=== PATIENT | female | born 1945 | race Caucasian/White ===

== ENCOUNTER 2016-07-04 22:05 | Inpatient (IN) | payer MEDICARE, OTHER ==
[~2016-07-04] VITALS: Ht 154.9 cm; Wt 73.0 kg
[~2016-07-04 22:05] MED LIST: ACETAMINOPHEN325 M1 ORAL; AMBIEN5 MG ORAL; ASPIRIN EC81 MG ORAL; ASPIRIN81 MG ORAL; ATIVAN1 MG ORAL; ATORVASTATIN CA10 MG ORAL; ATORVASTATIN CA20 MG ORAL; ATROVENT HFA12.9 GM IH; BISACODYL5 MG ORAL; CARAFATE1 G1 ORAL; CARVEDILOL3.125 MG ORAL; CEPHALEXIN500 MG ORAL; COLACE100 MG ORAL; D5W 50ML50 M1 IV; DEXTROSE 50%-WA50 M1 IV; DIGOXIN0.125 MG/2 ORAL; DOCUSATE SODIU100 MG ORAL; FUROSEMIDE10 MG/1 M2 PO; FUROSEMIDE20 M1 ORAL; FUROSEMIDE40 MG ORAL; HEPARIN2000 UNIT/ SUBQ; ISOSORBIDE DINI30 MG ORAL; ISOSORBIDE DINIT5 MG ORAL; JANUVIA100 MG ORAL; LANTUS SOL100 UNIT/1 SUBQ; LASIX20 M1 ORAL; LEVEMIR FL100 UNIT/1 SUBQ; LISINOPRIL10 MG ORAL; LISINOPRIL20 MG ORAL; LISINOPRIL5 MG ORAL; LORATADINE10 M1 PO; LORATADINE5 MG/5 M4 PO; LYRICA50 MG ORAL; LYRICA75 M1 ORAL; MOM30 ML ORAL; NEURONTIN300 MG ORAL; NEXIUM40 MG ORAL; NORCO 5-325 TA1 EACH ORAL; NOVOLOG100 UNITS1 SUBQ; OMEPRAZOLE20 M2 ORAL; ONDANSETRON4 MG/2 M2 IVP; POLYETHYLENE GL17 GM ORAL; PROTONIX40 MG ORAL; RANITIDINE HCL150 MG ORAL; ROCEPHIN2 GM IVPB; SANTYL30 GM TP; VITAMIN D250000 UNI1 ORAL; ZOFRAN 4 MG4 MG/2 ML IVP; ZOFRAN4 M1 IVP
[2016-07-04 23:21] LABS: BASOPHILS % (AUTO) 1.5 % (0.0-2.0); EOSINOPHILS % (AUTO) 2.6 % (0.0-3.0); LYMPHOCYTES % (AUTO) 25.7 % (20.0-45.0); MEAN CORPUSCULAR HEMOGLOBIN 25.8 PG (27.0-31.0); MEAN CORPUSCULAR HGB CONC 30.7 G/DL (32.0-36.0); MEAN CORPUSCULAR VOLUME 84 FL (80-99); MONOCYTES % (AUTO) 9.5 % (1.0-10.0); NEUTROPHILS % (AUTO) 60.7 % (45.0-75.0); PLATELET COUNT 223 K/UL (150-450); RED BLOOD COUNT 4.68 M/UL (4.20-5.40); RED CELL DISTRIBUTION WIDTH 14.5 % (11.6-14.8)
[2016-07-04 23:32] LABS: INR 0.9 (0.9-1.1); PROTHROMBIN TIME 9.4 SEC (9.30-11.50)
[2016-07-04 23:37] LABS: TROPONIN I < 0.30 ng/mL (<=0.30)
[2016-07-04 23:40] LABS: ALANINE AMINOTRANSFERASE 9 U/L (3-33); ALBUMIN/GLOBULIN RATIO 0.9 (1.0-2.7); ANION GAP 16 (5-15); ASPARTATE AMINO TRANSFERASE 16 U/L (5-40); CALCIUM 9.3 mg/dL (8.6-10.2); CARBON DIOXIDE 17 mEQ/L (20-30); CHLORIDE 92 mEQ/L (98-107); CREATININE 2.3 mg/dL (0.5-0.9); HEMOLYSIS 25; SODIUM 125 mEQ/L (135-145); TOTAL PROTEIN 8.4 g/dL (6.6-8.7)
[2016-07-04 23:50] LABS: CKMB 2.3 ng/mL (< 3.8)
[2016-07-04] MEDS ORDERED: Tubing IV Cassette IV ONE (23:57)
[2016-07-05] VITALS (24 sets, daily range): BP systolic 89–131; BP diastolic 34–73
[2016-07-05] LABS: APPEARANCE,URINE CLEAR; KETONES,URINE NEGATIVE (NEGATIVE); LEUKOCYTE ESTERASE ,URINE 3+ (NEGATIVE); NITRITE,URINE NEGATIVE (NEGATIVE); PH,URINE 5 (4.5-8.0); PROTEIN,URINE NEGATIVE (NEGATIVE); UROBILINOGEN,URINE NORMAL MG/DL (0.0-1.0)
[2016-07-05] MEDS ORDERED: Calcium Gluconate 1gm/10ml vial IVP ONE
[2016-07-05] MEDS ORDERED: Albuterol ud Inhalation HHN ONE
[2016-07-05] MEDS ORDERED: Sodium Bicarbonate 8.4% 50ml Carp IV ONE
[2016-07-05 00:17] LABS: BACTERIA,URINE MANY /HPF; SQUAMOUS EPITHELIAL CELL,UR FEW /LPF (NONE/OCC); WBC,URINE 60-80 /HPF (0 - 2)
[2016-07-05] MEDS ORDERED: Morphine Sulfate 2mg/ml Inj IVP PRN (00:30)
[2016-07-05] MEDS ORDERED: Sodium Polystyrene Sulfonate 15gm Powder ORAL ONE ×3 (00:30→08:30)
[2016-07-05] MEDS ORDERED: Zolpidem 5mg tab ORAL PRN (00:30)
[2016-07-05] MEDS ORDERED: DuoNeb 0.5-3(2.5)mg/3ml neb HHN PRN (00:30)
[2016-07-05] MEDS ORDERED: Miralax 17gm pkt ORAL PRN (00:30)
[2016-07-05] MEDS ORDERED: Mylanta II UD 30ml ORAL PRN (00:30)
[2016-07-05] MEDS ORDERED: cefTRIAXone 1 GM in NS 55 ML IVPB ONE (00:45)
--- NOTE | 2016-07-05 01:03 | Emergency Room Report ---
History of Present Illness General Chief Complaint: Generalized Weakness Source: Patient, Medical Record Present Illness HPI This is a 71-year-old female with a history of CAD. She had a pacemaker. She presents with chief complaint of weakness. She said she has nausea and vomiting and diarrhea for last 3 days. No fever or chills. No chest pain. Nothing made it better. Exertion made it worse. No other complaint. Allergies: Coded Allergies: No Known Allergies (Unverified , 03/12/15) Patient History Past Medical History: old chart reviewed, unable to obtain Past Surgical History: pacemaker Pertinent Family History: none Social History: Denies: smoking Now: No Immunizations: other Reviewed Nursing Documentation: PMH: Agreed, PSxH: Agreed Nursing Documentation-PMH Hx Cardiac Problems: Yes - Hyperlipidemia Hx Hypertension: Yes Hx Pacemaker: Yes - s/p Biotronik biventricular defibrillator Hx COPD: Yes Hx Diabetes: Yes Hx Cancer: No Hx Gastrointestinal Problems: Yes - epigastric pain, hypoalbuminemia Hx Neurological Problems: Yes Hx Cerebrovascular Accident: Yes - right hemiplegia Hx Dementia: No Hx Alzheimer's Disease: No Hx Parkinson's Disease: No Hx Meningitis: No Hx Epilepsy: No Hx Multiple Sclerosis: No Hx Cerebral Palsy: No Hx Amyotrophic Lat Sclerosis: No Hx Guillian-L[place] Syndrome: No Hx Peripheral Neuropathy: No Hx Spinal Cord Injury: No Hx Head Trauma: No Hx Traumatic Brain Injury: No Hx Memory Loss: No Hx Concentration Difficulty: No Hx Speech Problem: No Hx Tremors: Yes Hx Vertigo: No Hx Dizziness: Yes Hx Syncope: No Hx Headaches: No Hx Aphasia: No Hx Dysphasia: No Hx Numbness: No Hx Fatigue: No Hx Neurologic Surgery: No Hx Brain Shunt: No Review of Systems Constitutional: Reports: weakness Eye: Denies: blurred vision, eye pain ENT: Denies: ear pain, nose congestion, throat swelling Respiratory: Denies: cough, shortness of breath Cardiovascular: Denies: chest pain, palpitations Gastrointestinal: Reports: diarrhea, nausea, vomiting, Denies: abdominal pain Musculoskeletal: Denies: back pain, joint pain Skin: Denies: rash Neurological: Denies: headache, numbness Endocrine: Denies: increased thirst, increased urine Hematologic/Lymphatic: Denies: easy bruising All Other Systems: negative except mentioned in HPI Physical Exam Vital Signs Date Time Temp Pulse Resp B/P Pulse Ox O2 Delivery O2 Flow Rate FiO2 07/04/16 22:18 97.5 76 20 128/76 95 Room Air vitals unremarkable Sp02 EP Interpretation: reviewed, normal General Appearance: well appearing, no apparent distress, alert Head: normocephalic, atraumatic Eyes: bilateral eye EOMI, bilateral eye PERRL ENT: hearing 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, normal pharynx Neck: full range of motion, supple, no meningismus Respiratory: chest non-tender, lungs clear, normal breath sounds Cardiovascular #1: regular rate, rhythm, no murmur Gastrointestinal: normal bowel sounds, non tender, no mass, no organomegaly, no bruit, non-distended Musculoskeletal: back normal, gait/station normal, normal range of motion Psychiatric: mood/affect normal Skin: warm/dry Procedures Critical Care Time Critical Care Time Critical care is mandated in this patient who presented with hyperkalemia. Patient require my urgent intervention to attenuate the risks of metabolic collapse which may lead to cardiovascular collapse and . Critical care time is 35 minutes excluding any reportable procedure. Critical care time included evaluation, multiple reevaluation, looking at old charts, interpreting laboratory and diagnostic data, discussing case with patient and family and consultants, and charting. Medical Decision Making Diagnostic Impression: Primary Impression: Hyperkalemia Additional Impressions: Acute renal failure (ARF) Qualified Codes: N17.9 - Acute kidney failure, unspecified Episode of generalized weakness Cardiomyopathy Qualified Codes: I42.9 - Cardiomyopathy, unspecified Hyponatremia Hyperglycemia UTI (urinary tract infection) Qualified Codes: N30.00 - Acute cystitis without hematuria ER Course Patient presents with weakness and has hyperkalemia. Patient treated with medication. Loculated, she has a pacemaker. This will decrease her chances from going to arrhythmia. Echocardiogram on December 2015 showed ejection fraction of 20-25%. Luckily, she still making urine. We'll hydrate gently. She's not making urine, he will be emergent dialysis. I discussed the case with Dr. Nolen who is covering for Dr. Wright. Lab Results Impression Labs with hyperkalemia EKG Diagnostic Results Rate: normal Rhythm: NSR, other - paced ST Segments: no acute changes Rhythm Strip Diag. Results EP Interpretation: yes Rate: 70 Rhythm: NSR, no PVC's, no ectopy Chest X-Ray Diagnostic Results EP Interpretation: Yes Findings: no consolidation, no effusion, no pneumothorax, no acute cardiopulmonary disease Number of Views: 1 Last Vital Signs Date Time Temp Pulse Resp B/P Pulse Ox O2 Delivery O2 Flow Rate FiO2 07/05/16 00:20 96.9 86 18 99/73 100 Room Air Status: improved Disposition: ADMITTED INPATIENT Condition: Critical Referrals: NON PHYSICIAN (PCP) SISI HOLLIDAY M.D. Jul 05, 2016 01:03
[2016-07-05 01:44] LABS: CALCIUM 9.1 mg/dL (8.6-10.2); GLOMERULAR FILTRATION RATE 24.7 mL/min (>60)
[2016-07-05 01:47] LABS: POTASSIUM 6.9 mEQ/L (3.4-4.9)
[2016-07-05 07:20] LABS: CALCIUM 8.8 mg/dL (8.6-10.2); CREATININE 1.7 mg/dL (0.5-0.9); GLOMERULAR FILTRATION RATE 29.8 mL/min (>60)
[2016-07-05 07:36] LABS: POTASSIUM 6.6 mEQ/L (3.4-4.9)
[2016-07-05] MEDS: Heparin 5000 units/ml inj SUBQ SCH ×2 (10:27→21:16)
--- NOTE | 2016-07-05 10:52 | Consultation ---
Consult Note Consult Note asked to eval for renal failure and hyper kalemia Chief Complaint: Generalized Weakness HPI This is a 71-year-old female with a history of CAD. She had a pacemaker. She presents with chief complaint of weakness. She said she has nausea and vomiting and diarrhea for last 3 days. No fever or chills. No chest pain. Nothing made it better. Exertion made it worse. No other complaint. Past Surgical History: pacemaker Hx Cardiac Problems: Yes - Hyperlipidemia Hx Hypertension: Yes Hx Pacemaker: Yes - s/p Biotronik biventricular defibrillator Hx COPD: Yes Hx Cancer: No Hx Gastrointestinal Problems: Yes - epigastric pain, hypoalbuminemia Hx Neurological Problems: Yes Hx Cerebrovascular Accident: Yes - right hemiplegia Hx Tremors: Yes Hx Dizziness: Yes Patient in ICU Examined , data reviewed , discussed with RN . Assessment/Plan Status: 1- Acute Renal Failure and HyperKalemia likely due to: - Hypotension and Shock- - Julio Inhibitors and excess diuretics 2- h/o Pacer and Cardiomyopathy- Plan: Slow Hydrate- Kayexelate- Monitor renal parameters- and serum K Avoid Nephrotoxics- Watch for CHF Sxs per orders VALERIO SOTO Jul 05, 2016 10:52
[2016-07-05] MEDS: Sucralfate 1gm tab ORAL SCH ×3 (11:37→21:15)
[2016-07-05] MEDS: Pantoprazole Inj IVP SCH (11:38)
--- NOTE | 2016-07-05 13:37 | Pulmonolgy Critical Care Note ---
Critical Care - Asmt/Plan Problems: (1) Acute renal failure (ARF) (2) Hyperkalemia (3) ATN (acute tubular necrosis) (4) Acute encephalopathy (5) Diabetes mellitus (6) CAD (coronary artery disease) (7) Iron deficiency anemia (8) HTN (hypertension) (9) Cerebral vascular disease Respiratory: monitor respiratory rate, adjust FIO2 Cardiac: continue to monitor HR/BP Renal: F/U I&O, keep IV fluid Infectious Disease: check cultures Gastrointestinal: continue feedings/current rate Endocrine: monitor blood sugar Affect: PRN ativan Disposition: keep in ICU Notes Reviewed: renal Discussed with: nurses, consultants, case technicianconcession manager - Objective Last 24 Hour Vital Signs Date Time Temp Pulse Resp B/P Pulse Ox O2 Delivery O2 Flow Rate FiO2 07/05/16 13:00 70 12 99/40 100 Room Air 07/05/16 12:00 97.8 70 15 97/46 98 Room Air 07/05/16 12:00 75 07/05/16 11:00 75 16 113/48 100 Room Air 07/05/16 10:00 80 15 104/38 98 Room Air 07/05/16 09:00 76 15 99/35 98 Room Air 07/05/16 08:00 97.5 75 16 92/34 100 Room Air 07/05/16 08:00 79 07/05/16 07:00 78 15 105/42 98 Room Air 07/05/16 06:05 80 17 89/37 98 Room Air 07/05/16 05:02 80 16 90/37 100 Room Air 07/05/16 04:29 83 07/05/16 04:00 83 16 97/44 100 Room Air 07/05/16 03:29 85 07/05/16 03:15 97.6 85 18 109/66 100 Room Air 07/05/16 03:09 96.9 81 14 105/48 100 Room Air 07/05/16 02:35 81 14 105/48 100 Room Air 07/05/16 01:40 79 17 95/39 98 Room Air 07/05/16 00:20 96.9 86 18 99/73 100 Room Air 07/05/16 00:08 69 19 100 Room Air 07/05/16 00:07 114 20 100 Room Air 07/05/16 00:03 70 23 Room Air 07/04/16 22:18 97.5 76 20 128/76 95 Room Air Status: awake Condition: critical HEENT: atraumatic Lungs: clear Heart: HR/BP stable Abdomen: non-tender Extremities: no C/C/E, edema Accucheck: 301 Critical Care - Subjective ROS Limited/Unobtainable: No ICU Day: 1 Interval Events: 71-year-old female with a history of CAD, pacemaker presented to ER of [place] with chief complaint of weakness. She said she has nausea and vomiting and diarrhea for last 3 days. \ She was diagnosed to have acute renal failure with hyperkalemia, She recieved the intital treatment including NS, D50 , Kayecalate in ER. She had a good urine output and her repeat K was lower. she was transferred to ICU for further evaluation. She was somnolent earlier on but became more alert as she was receiving her treatment. Condition: critical EKG Rhythm: Sinus Rhythm Fluids: NS bolus I&O: Intake and Output 07/04/16 07/05/16 19:00 07:00 Intake Total 1550 ml Output Total 1440 ml Balance 110 ml Intake Oral 0 ml IV Total 1550 ml Output Urine Total 1440 ml CXR: pace maker in place Labs: Laboratory Tests Test 07/04/16 23:10 07/04/16 23:25 07/05/16 01:10 07/05/16 06:50 White Blood Count 11.0 K/UL (4.8-10.8) H Red Blood Count 4.68 M/UL (4.20-5.40) Hemoglobin 12.1 G/DL (12.0-16.0) Hematocrit 39.3 % (37.0-47.0) Mean Corpuscular Volume 84 FL (80-99) Mean Corpuscular Hemoglobin 25.8 PG (27.0-31.0) L Mean Corpuscular Hemoglobin Concent 30.7 G/DL (32.0-36.0) L Red Cell Distribution Width 14.5 % (11.6-14.8) Platelet Count 223 K/UL (150-450) Mean Platelet Volume 9.0 FL (6.5-10.1) Neutrophils (%) (Auto) 60.7 % (45.0-75.0) Lymphocytes (%) (Auto) 25.7 % (20.0-45.0) Monocytes (%) (Auto) 9.5 % (1.0-10.0) Eosinophils (%) (Auto) 2.6 % (0.0-3.0) Basophils (%) (Auto) 1.5 % (0.0-2.0) Prothrombin Time 9.4 SEC (9.30-11.50) Prothromb Time International Ratio 0.9 (0.9-1.1) Activated Partial Thromboplast Time 22 SEC (23-33) L Sodium Level 125 mEQ/L (135-145) L 131 mEQ/L (135-145) L 133 mEQ/L (135-145) L Potassium Level 8.0 mEQ/L (3.4-4.9) *H 6.9 mEQ/L (3.4-4.9) *H 6.6 mEQ/L (3.4-4.9) *H Chloride Level 92 mEQ/L (98-107) L 97 mEQ/L (98-107) L 104 mEQ/L (98-107) Carbon Dioxide Level 17 mEQ/L (20-30) L 19 mEQ/L (20-30) L 17 mEQ/L (20-30) L Anion Gap 16 (5-15) H 15 (5-15) 12 (5-15) Blood Urea Nitrogen 91 mg/dL (7-23) H 90 mg/dL (7-23) H 79 mg/dL (7-23) H Creatinine 2.3 mg/dL (0.5-0.9) H 2.0 mg/dL (0.5-0.9) H 1.7 mg/dL (0.5-0.9) H Estimat Glomerular Filtration Rate 21.0 mL/min (>60) 24.7 mL/min (>60) 29.8 mL/min (>60) Glucose Level 213 mg/dL (74-106) H 197 mg/dL (74-106) H 170 mg/dL (74-106) H Calcium Level 9.3 mg/dL (8.6-10.2) 9.1 mg/dL (8.6-10.2) 8.8 mg/dL (8.6-10.2) Total Bilirubin < 0.2 mg/dL (0.0-1.2) Aspartate Amino Transf (AST/SGOT) 16 U/L (5-40) Alanine Aminotransferase (ALT/SGPT) 9 U/L (3-33) Alkaline Phosphatase 154 U/L (35-104) H Total Creatine Kinase 82 U/L (26-140) Creatine Kinase MB 2.3 ng/mL (< 3.8) Creatine Kinase MB Relative Index 2.8 Troponin I < 0.30 ng/mL (<=0.30) Pro-B-Type Natriuretic Peptide 1841 pg/mL (0-125) H Total Protein 8.4 g/dL (6.6-8.7) Albumin 4.1 g/dL (3.5-5.2) Globulin 4.3 g/dL Albumin/Globulin Ratio 0.9 (1.0-2.7) L Urine Color Pale yellow Urine Appearance Clear Urine pH 5 (4.5-8.0) Urine Specific [place] 1.005 (1.005-1.035) Urine Protein Negative (NEGATIVE) Urine Glucose (UA) Negative (NEGATIVE) Urine Ketones Negative (NEGATIVE) Urine Occult Blood 2+ (NEGATIVE) H Urine Nitrite Negative (NEGATIVE) Urine Bilirubin Negative (NEGATIVE) Urine Urobilinogen Normal MG/DL (0.0-1.0) Urine Leukocyte Esterase 3+ (NEGATIVE) H Urine RBC 5-10 /HPF (0 - 2) H Urine WBC 60-80 /HPF (0 - 2) H Urine Squamous Epithelial Cells Few /LPF (NONE/OCC) Urine Bacteria Many /HPF (NONE) H Digoxin Level < 0.3 ng/mL (0.5-2.0) ERVIN ARCEO Jul 05, 2016 13:37
--- NOTE | 2016-07-05 14:01 | Diagnostic Imaging Report ---
Indication: SOB Technique: One view of the chest Comparison: 02/29/2016 Findings: There is a left chest biventricular pacemaker again demonstrated. Lungs and pleural spaces are clear. Heart size is borderline enlarged. Findings are unchanged Impression: No acute process. Findings as noted
[2016-07-05 14:15] LABS: HEMOGLOBIN A1C 9.7 % (< 6.0)
[2016-07-05 14:16] LABS: CALCIUM 8.4 mg/dL (8.6-10.2); CREATININE 1.5 mg/dL (0.5-0.9); GLOMERULAR FILTRATION RATE 34.4 mL/min (>60)
[2016-07-05 14:17] LABS: PHOSPHORUS 3.8 mg/dL (2.5-4.8); URIC ACID 6.9 mg/dL (3.0-7.5)
--- NOTE | 2016-07-05 16:00 | History & Physical ---
History and Physical History & Physicial Dictated for Int Med-Dr Wright no. [id number]. JOVANA AGUILAR Jul 05, 2016 16:00
--- NOTE | 2016-07-05 22:18 | History and Physical Report ---
DATE OF ADMISSION: 07/04/[address] Wright. CHIEF COMPLAINT: The patient is a 71-year-old female, presents with complaint of generalized weakness. HISTORY OF PRESENT ILLNESS: The patient was admitted to [facility] in March 2016. Please see history and physical and discharge summary dictated at that time. The patient presented to [place] emergency room. She states she had a three day history of nausea, vomiting, and diarrhea. She has become increasingly weak. The patient was found to have a potassium of 6.9. The patient was admitted for acute renal failure and hyperkalemia. PAST MEDICAL HISTORY: Significant for, 1. Chronic obstructive pulmonary disease. 2. Congestive heart failure. 3. Cardiomyopathy. 4. Diabetes type 2. 5. Hypertension. 6. History of cerebrovascular accident. 7. Right hemiparesis. 8. Cervical cancer, status post total abdominal hysterectomy. 9. Iron deficiency anemia. 10. Complete left bundle-branch block, status post AICD placement. PAST SURGICAL HISTORY: Significant for, 1. Total abdominal hysterectomy. 2. Appendectomy. 3. AICD placement in November [address] Zhao Acosta. MEDICATIONS: 1. Aspirin 81 mg one tablet p.o. daily. 2. Lipitor 10 mg one tablet p.o. at nightly. 3. Carvedilol 3.125 mg one tablet p.o. twice daily. 4. Nexium 40 mg one tablet p.o. daily. 5. Lasix 20 mg one tablet p.o. daily. 6. NovoLog sliding scale. 7. Lantus insulin at nightly. 8. Isordil 30 mg one tablet p.o. daily. 9. Lisinopril 10 mg one tablet p.o. daily. 10. Claritin 10 mg one tablet p.o. daily. 11. Protonix 40 mg one tablet p.o. daily. 12. Lyrica 50 mg one tablet p.o. twice daily. 13. Carafate 1 g p.o. at nightly. 14. Ambien 10 mg one tablet p.o. at nightly. ALLERGIES: No known drug allergies. SOCIAL HISTORY: The patient is single and lives with her adult son. The patient denies tobacco or alcohol use. REVIEW OF SYSTEMS: Constitutional: The patient denies weight loss or weight gain. The patient denies fevers or chills. HEENT: The patient denies ear or throat pain. Cardiovascular: The patient denies palpitations or chest pain. Chest: The patient denies wheezes or shortness of breath. Abdomen: The patient complains of nausea, vomiting, and diarrhea. The patient denies constipation. Genitourinary: The patient denies dysuria or increased frequency of urination. Neuromuscular: The patient complains of generalized weakness as above. The patient denies seizures. PHYSICAL EXAMINATION: VITAL SIGNS: Temperature 97.8 degrees, respirations 15 to 16, pulse 70 to 80, and blood pressure 97-113/40 to 46. GENERAL: The patient well-nourished, well-developed, somnolent, female, in no apparent distress. HEENT: Eyes, pupils are equal and responsive to light and accommodation. Extraocular movements are intact. NECK: Supple without lymphadenopathy. CHEST: Lungs are clear to auscultation bilaterally without wheezes or rales. CARDIOVASCULAR: Regular rhythm and rate. S1, S2 normal without murmurs, rubs, or gallops. ABDOMEN: Soft, nontender, and nondistended. Positive bowel sounds. No evidence of hepatosplenomegaly. Currently, no rebound or guarding noted. EXTREMITIES: Negative for clubbing, cyanosis, or edema. RECTAL: Refused. GENITAL: Refused. NEUROLOGIC: The patient does have a right hemiparesis. Otherwise, cranial nerves II through XII grossly intact without focal deficits. Motor strength is 5/5 bilaterally. Deep tendon reflexes are 2+ plantar. LABORATORY STUDIES: WBC 11.0, hemoglobin 12.1, hematocrit 39.3, and platelets 223,000. Sodium 131, potassium 6.9, chloride 97, CO2 19, BUN 90, creatinine 2.0, and glucose 197. Urinalysis showed 2+ occult blood, 3+ leukocyte esterase, and 60 to 80 WBC. ASSESSMENT: This is a 71-year-old female, 1. Acute renal failure. 2. Hyperkalemia. 3. Hypotension. 4. Shock. 5. Chronic obstructive pulmonary disease. 6. Cardiomyopathy. 7. Diabetes type 2. 8. Hypertension. 9. History of cerebrovascular disease. 10. Right hemiparesis. 11. History of cervical cancer. 12. Iron deficiency anemia. 13. Complete left bundle-branch block. TREATMENT: 1. Acute renal failure/hyperkalemia. A Nephrology consultation with Dr. Mcdonald. The patient will receive Kayexalate. The patient is currently receiving intravenous fluids. We will follow recommendation of Dr. Mcdonald. 2. Hypotension/shock. The patient is currently admitted to the intensive care unit. 3. Chronic obstructive pulmonary disease. 4. Cardiomyopathy. 5. Diabetes type 2. Continue Lantus and NovoLog sliding scale as above. 6. Hypertension. The patient is currently hypotensive. We will hold antihypertensive medication. 7. History of cerebrovascular accident. 8. Right hemiparesis. 9. History of cervical cancer, status post total hysterectomy. 10. Iron deficiency anemia, stable. 11. Complete left bundle-branch block status post automatic implanted cardioverter defibrillator. Ash Li M.D. DR: Binta JOB#: [id number] CC:
[2016-07-06] VITALS (16 sets, daily range): BP systolic 102–127; BP diastolic 38–80
[2016-07-06] MEDS: Sucralfate 1gm tab ORAL SCH ×4 (05:39→20:55)
[2016-07-06 06:32] LABS: BASOPHILS % (AUTO) 1.1 % (0.0-2.0); LYMPHOCYTES % (AUTO) 26.6 % (20.0-45.0); MEAN CORPUSCULAR HEMOGLOBIN 25.3 PG (27.0-31.0); MEAN CORPUSCULAR HGB CONC 30.1 G/DL (32.0-36.0); MEAN CORPUSCULAR VOLUME 84 FL (80-99); MEAN PLATELET VOLUME 7.9 FL (6.5-10.1); MONOCYTES % (AUTO) 8.3 % (1.0-10.0); PLATELET COUNT 198 K/UL (150-450); RED CELL DISTRIBUTION WIDTH 14.8 % (11.6-14.8); WHITE BLOOD COUNT 9.8 K/UL (4.8-10.8)
[2016-07-06 06:49] LABS: CRP QUANT < 0.3 mg/dL (< 0.5); URIC ACID 6.2 mg/dL (3.0-7.5)
[2016-07-06 06:50] LABS: ALANINE AMINOTRANSFERASE 7 U/L (3-33); ALBUMIN/GLOBULIN RATIO 0.8 (1.0-2.7); ANION GAP 14 (5-15); ASPARTATE AMINO TRANSFERASE 14 U/L (5-40); CALCIUM 8.7 mg/dL (8.6-10.2); CARBON DIOXIDE 19 mEQ/L (20-30); CHLORIDE 108 mEQ/L (98-107); CHOLESTEROL 116 mg/dL (< 200); CHOLESTEROL/HDL RATIO 3.4 (3.3-4.4); CREATININE 1.2 mg/dL (0.5-0.9); GLOMERULAR FILTRATION RATE 44.5 mL/min (>60); HEMOLYSIS 2; LDL CHOLESTEROL (CALC.) 54 mg/dL (60-99); POTASSIUM 5.4 mEQ/L (3.4-4.9); SODIUM 141 mEQ/L (135-145); TOTAL PROTEIN 6.6 g/dL (6.6-8.7)
[2016-07-06 07:27] LABS: MAGNESIUM 1.8 mg/dL (1.7-2.5); PHOSPHORUS 3.2 mg/dL (2.5-4.8)
[2016-07-06 08:07] LABS: HEMOGLOBIN A1C 10.6 % (< 6.0)
[2016-07-06] MEDS: Pantoprazole Inj IVP SCH (08:36)
[2016-07-06] MEDS: Heparin 5000 units/ml inj SUBQ SCH ×2 (08:37→20:57)
[2016-07-06] MEDS ORDERED: Aspirin EC 81mg tab ORAL SCH (09:00)
--- NOTE | 2016-07-06 10:40 | Pulmonolgy Critical Care Note ---
Critical Care - Asmt/Plan Problems: (1) Acute renal failure (ARF) (2) Hyperkalemia (3) ATN (acute tubular necrosis) (4) Acute encephalopathy (5) Diabetes mellitus (6) CAD (coronary artery disease) (7) Iron deficiency anemia (8) HTN (hypertension) (9) Cerebral vascular disease Respiratory: monitor respiratory rate Cardiac: continue to monitor HR/BP Renal: F/U I&O, decrease IV fluid, other - electrolytes better Gastrointestinal: continue feedings/current rate Endocrine: monitor blood sugar, continue sliding scale insulin Hematologic: transfuse if hgb<8.5 Neurologic: PRN Morphine, keep patient comfortable Affect: PRN ativan Prophylaxis: Protonix, Heparin Notes Reviewed: tow truck driver, cardio, renal Discussed with: nurses, consultants, rn case manager hospiceglobal regulatory affairs manager - Objective Last 24 Hour Vital Signs Date Time Temp Pulse Resp B/P Pulse Ox O2 Delivery O2 Flow Rate FiO2 07/06/16 09:00 79 16 112/38 98 Room Air 07/06/16 08:00 97.6 83 15 115/46 100 Room Air 07/06/16 07:43 74 18 Room Air 07/06/16 06:53 77 19 120/45 97 Room Air 07/06/16 06:00 76 19 120/45 97 Room Air 07/06/16 05:00 60 19 114/80 97 Room Air 07/06/16 04:00 97.5 77 19 118/44 97 Room Air 07/06/16 04:00 77 07/06/16 03:00 82 19 113/44 97 Room Air 07/06/16 02:00 79 19 112/45 97 Room Air 07/06/16 00:59 90 19 123/46 97 Room Air 07/06/16 00:00 93 07/06/16 00:00 97.7 93 19 125/53 97 Room Air 07/05/16 23:00 78 19 131/53 97 Room Air 07/05/16 22:00 87 20 127/53 98 Room Air 07/05/16 21:00 69 20 114/49 98 Room Air 07/05/16 20:00 99.1 73 16 109/50 100 Room Air 07/05/16 20:00 61 07/05/16 19:00 81 18 110/50 95 Room Air 07/05/16 18:00 69 18 92/51 100 Room Air 07/05/16 17:00 71 18 105/49 100 Room Air 07/05/16 16:16 73 07/05/16 16:00 97.7 73 16 95/68 100 Room Air 07/05/16 15:00 71 19 101/45 100 Room Air 07/05/16 14:00 72 13 103/45 100 Room Air 07/05/16 13:00 70 12 99/40 100 Room Air 07/05/16 12:00 97.8 70 15 97/46 98 Room Air 07/05/16 12:00 75 07/05/16 11:00 75 16 113/48 100 Room Air Status: awake Condition: critical HEENT: atraumatic, normocephalic Lungs: clear Heart: HR/BP stable, regular Abdomen: soft, feeding tube Extremities: no C/C/E, edema Micro: Microbiology Date/Time Source Procedure Growth Status 07/04/16 23:25 Urine,Clean Catch Urine Culture - Preliminary Gram Negative Bacillus 1 Resulted Accucheck: 90 Critical Care - Subjective ROS Limited/Unobtainable: No - feeling better Condition: critical EKG Rhythm: Sinus Rhythm Fluids: 1/2 NS 100 cc.hour I&O: Intake and Output 07/05/16 07/06/16 19:00 07:00 Intake Total 2360 ml 1150 ml Output Total 1845 ml 2180 ml Balance 515 ml -1030 ml Intake Oral 840 ml 50 ml IV Total 1500 ml 1100 ml Other 20 ml Output Urine Total 1845 ml 2180 ml CXR: no change Labs: Laboratory Tests Test 07/05/16 13:15 07/06/16 05:10 Sodium Level 136 mEQ/L (135-145) 141 mEQ/L (135-145) Potassium Level 6.0 mEQ/L (3.4-4.9) *H 5.4 mEQ/L (3.4-4.9) H Chloride Level 105 mEQ/L (98-107) 108 mEQ/L (98-107) H Carbon Dioxide Level 20 mEQ/L (20-30) 19 mEQ/L (20-30) L Anion Gap 11 (5-15) 14 (5-15) Blood Urea Nitrogen 70 mg/dL (7-23) H 46 mg/dL (7-23) H Creatinine 1.5 mg/dL (0.5-0.9) H 1.2 mg/dL (0.5-0.9) H Estimat Glomerular Filtration Rate 34.4 mL/min (>60) 44.5 mL/min (>60) Glucose Level 189 mg/dL (74-106) H 93 mg/dL (74-106) Calcium Level 8.4 mg/dL (8.6-10.2) L 8.7 mg/dL (8.6-10.2) White Blood Count 9.8 K/UL (4.8-10.8) Red Blood Count 4.10 M/UL (4.20-5.40) L Hemoglobin 10.4 G/DL (12.0-16.0) L Hematocrit 34.4 % (37.0-47.0) L Mean Corpuscular Volume 84 FL (80-99) Mean Corpuscular Hemoglobin 25.3 PG (27.0-31.0) L Mean Corpuscular Hemoglobin Concent 30.1 G/DL (32.0-36.0) L Red Cell Distribution Width 14.8 % (11.6-14.8) Platelet Count 198 K/UL (150-450) Mean Platelet Volume 7.9 FL (6.5-10.1) Neutrophils (%) (Auto) 59.0 % (45.0-75.0) Lymphocytes (%) (Auto) 26.6 % (20.0-45.0) Monocytes (%) (Auto) 8.3 % (1.0-10.0) Eosinophils (%) (Auto) 5.0 % (0.0-3.0) H Basophils (%) (Auto) 1.1 % (0.0-2.0) Hemoglobin A1c 10.6 % (< 6.0) H Uric Acid 6.2 mg/dL (3.0-7.5) Phosphorus Level 3.2 mg/dL (2.5-4.8) Magnesium Level 1.8 mg/dL (1.7-2.5) Total Bilirubin < 0.2 mg/dL (0.0-1.2) Gamma Glutamyl Transpeptidase 17 U/L (5-36) Aspartate Amino Transf (AST/SGOT) 14 U/L (5-40) Alanine Aminotransferase (ALT/SGPT) 7 U/L (3-33) Alkaline Phosphatase 83 U/L (35-104) Total Creatine Kinase 140 U/L (26-140) C-Reactive Protein, Quantitative < 0.3 mg/dL (< 0.5) Pro-B-Type Natriuretic Peptide 823 pg/mL (0-125) H Total Protein 6.6 g/dL (6.6-8.7) Albumin 3.1 g/dL (3.5-5.2) L Globulin 3.5 g/dL Albumin/Globulin Ratio 0.8 (1.0-2.7) L Triglycerides Level 138 mg/dL (< 150) Cholesterol Level 116 mg/dL (< 200) LDL Cholesterol 54 mg/dL (60-99) L HDL Cholesterol 34 mg/dL (> 60) Cholesterol/HDL Ratio 3.4 (3.3-4.4) Thyroid Stimulating Hormone (TSH) 1.200 uIU/mL (0.300-4.500) ERVIN COHN Jul 06, 2016 10:40
--- NOTE | 2016-07-06 11:08 | Diagnostic Imaging Report ---
Indication: DYSPNEA Technique: One view of the chest Comparison: 07/04/2016 Findings: Lungs and pleural spaces are clear. The heart size is upper limits normal. There is a left chest biventricular pacemaker. No significant interim change Impression: No acute process. Findings as noted
--- NOTE | 2016-07-06 12:03 | General Progress Note ---
Assessment/Plan Status: stable - from renal stand point Status Narrative Cr 1.2 ............... K 5.4 Assessment/Plan status; 1- Acute Renal Failure and HyperKalemia likely due to: - Hypotension and Shock- - Julio Inhibitors and excess diuretics 2- h/o Pacer and Cardiomyopathy- Plan: Slow Hydrate- Kayexelate- Monitor renal parameters- and serum K Avoid Nephrotoxics- Watch for CHF Sxs per orders Subjective ROS Limited/Unobtainable: No Constitutional: Reports: malaise, weakness Allergies: Coded Allergies: No Known Allergies (Unverified , 03/12/15) Objective Last 24 Hour Vital Signs Date Time Temp Pulse Resp B/P Pulse Ox O2 Delivery O2 Flow Rate FiO2 07/06/16 11:00 79 16 111/45 100 Room Air 07/06/16 10:00 77 16 114/43 100 Room Air 07/06/16 09:00 79 16 112/38 98 Room Air 07/06/16 08:00 75 07/06/16 08:00 97.6 83 15 115/46 100 Room Air 07/06/16 07:43 74 18 Room Air 07/06/16 06:53 77 19 120/45 97 Room Air 07/06/16 06:00 76 19 120/45 97 Room Air 07/06/16 05:00 60 19 114/80 97 Room Air 07/06/16 04:00 97.5 77 19 118/44 97 Room Air 07/06/16 04:00 77 07/06/16 03:00 82 19 113/44 97 Room Air 07/06/16 02:00 79 19 112/45 97 Room Air 07/06/16 00:59 90 19 123/46 97 Room Air 07/06/16 00:00 93 07/06/16 00:00 97.7 93 19 125/53 97 Room Air 07/05/16 23:00 78 19 131/53 97 Room Air 07/05/16 22:00 87 20 127/53 98 Room Air 07/05/16 21:00 69 20 114/49 98 Room Air 07/05/16 20:00 99.1 73 16 109/50 100 Room Air 07/05/16 20:00 61 07/05/16 19:00 81 18 110/50 95 Room Air 07/05/16 18:00 69 18 92/51 100 Room Air 07/05/16 17:00 71 18 105/49 100 Room Air 07/05/16 16:16 73 07/05/16 16:00 97.7 73 16 95/68 100 Room Air 07/05/16 15:00 71 19 101/45 100 Room Air 07/05/16 14:00 72 13 103/45 100 Room Air 07/05/16 13:00 70 12 99/40 100 Room Air Intake and Output 07/05/16 07/06/16 19:00 07:00 Intake Total 2360 ml 1150 ml Output Total 1845 ml 2180 ml Balance 515 ml -1030 ml Intake Oral 840 ml 50 ml IV Total 1500 ml 1100 ml Other 20 ml Output Urine Total 1845 ml 2180 ml Laboratory Tests 07/05/16 13:15: Sodium Level 136, Potassium Level 6.0*H, Chloride Level 105, Carbon Dioxide Level 20, Anion Gap 11, Blood Urea Nitrogen 70H, Creatinine 1.5H, Estimat Glomerular Filtration Rate 34.4, Glucose Level 189H, Calcium Level 8.4L 07/06/16 05:10: Sodium Level 141, Potassium Level 5.4H, Chloride Level 108H, Carbon Dioxide Level 19L, Anion Gap 14, Blood Urea Nitrogen 46H, Creatinine 1.2H, Estimat Glomerular Filtration Rate 44.5, Glucose Level 93, Calcium Level 8.7, White Blood Count 9.8, Red Blood Count 4.10L, Hemoglobin 10.4L, Hematocrit 34.4L, Mean Corpuscular Volume 84, Mean Corpuscular Hemoglobin 25.3L, Mean Corpuscular Hemoglobin Concent 30.1L, Red Cell Distribution Width 14.8, Platelet Count 198, Mean Platelet Volume 7.9, Neutrophils (%) (Auto) 59.0, Lymphocytes (%) (Auto) 26.6, Monocytes (%) (Auto) 8.3, Eosinophils (%) (Auto) 5.0H, Basophils (%) (Auto ) 1.1, Hemoglobin A1c 10.6H, Uric Acid 6.2, Phosphorus Level 3.2, Magnesium Level 1.8, Total Bilirubin < 0.2, Gamma Glutamyl Transpeptidase 17, Aspartate Amino Transf (AST/SGOT) 14, Alanine Aminotransferase (ALT/SGPT) 7, Alkaline Phosphatase 83, Total Creatine Kinase 140, C-Reactive Protein, Quantitative < 0.3, Pro-B-Type Natriuretic Peptide 823H, Total Protein 6.6, Albumin 3.1L, Globulin 3.5, Albumin/Globulin Ratio 0.8L, Triglycerides Level 138, Cholesterol Level 116, LDL Cholesterol 54L, HDL Cholesterol 34, Cholesterol/HDL Ratio 3.4, Thyroid Stimulating Hormone (TSH) 1.200 Height (Feet): 5 Height (Inches): 1.00 Weight (Pounds): 161 General Appearance: no apparent distress, lethargic, confused Objective other PE not changed VALERIO SOTO Jul 06, 2016 12:03
[2016-07-06] MEDS ORDERED: DuoNeb 0.5-3(2.5)mg/3ml neb HHN PRN (13:00)
--- NOTE | 2016-07-06 13:41 | Internal Med Progress Note ---
Subjective Date of Service: Jul 06, 2016 Physician Name Jovana Aguilar Attending Physician Brendan Wright MD Current Medications Medications (Trade) Dose Ordered Sig/[place] Route PRN Reason Start Time Stop Time Status Last Admin Dose Admin Acetaminophen (Tylenol) 650 mg Q4H PRN ORAL T>100.5 07/06/16 12:30 08/05/16 12:29 Albuterol/ Ipratropium (DuoNeb 0.5-3(2.5)mg/3ml) 3 ml Q6H PRN HHN dyspnea 07/06/16 13:00 07/11/16 12:59 Aspirin (Ecotrin) 81 mg DAILY ORAL 07/07/16 09:00 08/06/16 08:59 Atorvastatin Calcium (Lipitor) 10 mg BEDTIME ORAL 07/06/16 21:00 08/05/16 20:59 Dextrose (Dextrose 50%) STAT PRN IV Hypoglycemia 07/06/16 13:00 08/05/16 12:59 Heparin Sodium (Porcine) (Heparin 5000 units/ml) 5,000 units EVERY 12 HOURS SUBQ 07/06/16 21:00 08/05/16 20:59 Morphine Sulfate (Morphine Sulfate) 1 mg Q4H PRN IVP PAIN 4-10 07/06/16 13:00 07/13/16 12:59 Ondansetron HCl (Zofran) 4 mg Q6H PRN IVP Nausea & Vomiting 07/06/16 12:30 08/05/16 12:29 Pantoprazole (Protonix) 40 mg DAILY IVP 07/07/16 09:00 08/06/16 08:59 Polyethylene Glycol (Miralax) 17 gm HSPRN PRN ORAL Constipation 07/06/16 21:00 08/05/16 20:59 Sodium Chloride (Sodium Chloride 1000ml bag) 1,000 ml @ 50 mls/hr Q20H IV 07/06/16 13:00 08/05/16 12:59 Sucralfate (Carafate) 1 gm AC+HS ORAL 07/06/16 16:30 08/05/16 16:29 Zolpidem Tartrate (Ambien) 5 mg HSPRN PRN ORAL Insomnia 07/06/16 21:00 08/05/16 20:59 Allergies: Coded Allergies: No Known Allergies (Unverified , 03/12/15) ROS Limited/Unobtainable: No Constitutional: Reports: no symptoms HEENT: Reports: no symptoms Cardiovascular: Reports: no symptoms Respiratory: Reports: no symptoms Gastrointestinal/Abdominal: Reports: no symptoms Genitourinary: Reports: no symptoms 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: Reports: weakness Subjective 71 YO F admitted with generalized weakness. Now hyperkalemia and renal failure. Cover for Int [facility]-Dr Wright. ICU Objective Last Vital Signs Date Time Temp Pulse Resp B/P Pulse Ox O2 Delivery O2 Flow Rate FiO2 07/06/16 12:00 83 16 116/45 98 Room Air 07/06/16 08:00 97.6 General Appearance: WD/WN, alert, mild distress EENT: PERRL/EOMI, normal ENT inspection, TMs normal Neck: non-tender, normal alignment, supple, normal inspection Cardiovascular: normal peripheral pulses, normal rate, regular rhythm, no gallop/murmur, no JVD Respiratory/Chest: chest wall non-tender, lungs clear, normal breath sounds, no respiratory distress, no accessory muscle use Abdomen: normal bowel sounds, non tender, soft, no organomegaly, no mass Extremities: other - right hemiparesis 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 Skin: normal pigmentation, warm/dry Laboratory Tests Test 07/06/16 05:10 White Blood Count 9.8 K/UL (4.8-10.8) Red Blood Count 4.10 M/UL (4.20-5.40) L Hemoglobin 10.4 G/DL (12.0-16.0) L Hematocrit 34.4 % (37.0-47.0) L Mean Corpuscular Volume 84 FL (80-99) Mean Corpuscular Hemoglobin 25.3 PG (27.0-31.0) L Mean Corpuscular Hemoglobin Concent 30.1 G/DL (32.0-36.0) L Red Cell Distribution Width 14.8 % (11.6-14.8) Platelet Count 198 K/UL (150-450) Mean Platelet Volume 7.9 FL (6.5-10.1) Neutrophils (%) (Auto) 59.0 % (45.0-75.0) Lymphocytes (%) (Auto) 26.6 % (20.0-45.0) Monocytes (%) (Auto) 8.3 % (1.0-10.0) Eosinophils (%) (Auto) 5.0 % (0.0-3.0) H Basophils (%) (Auto) 1.1 % (0.0-2.0) Sodium Level 141 mEQ/L (135-145) Potassium Level 5.4 mEQ/L (3.4-4.9) H Chloride Level 108 mEQ/L (98-107) H Carbon Dioxide Level 19 mEQ/L (20-30) L Anion Gap 14 (5-15) Blood Urea Nitrogen 46 mg/dL (7-23) H Creatinine 1.2 mg/dL (0.5-0.9) H Estimat Glomerular Filtration Rate 44.5 mL/min (>60) Glucose Level 93 mg/dL (74-106) Hemoglobin A1c 10.6 % (< 6.0) H Uric Acid 6.2 mg/dL (3.0-7.5) Calcium Level 8.7 mg/dL (8.6-10.2) Phosphorus Level 3.2 mg/dL (2.5-4.8) Magnesium Level 1.8 mg/dL (1.7-2.5) Total Bilirubin < 0.2 mg/dL (0.0-1.2) Gamma Glutamyl Transpeptidase 17 U/L (5-36) Aspartate Amino Transf (AST/SGOT) 14 U/L (5-40) Alanine Aminotransferase (ALT/SGPT) 7 U/L (3-33) Alkaline Phosphatase 83 U/L (35-104) Total Creatine Kinase 140 U/L (26-140) C-Reactive Protein, Quantitative < 0.3 mg/dL (< 0.5) Pro-B-Type Natriuretic Peptide 823 pg/mL (0-125) H Total Protein 6.6 g/dL (6.6-8.7) Albumin 3.1 g/dL (3.5-5.2) L Globulin 3.5 g/dL Albumin/Globulin Ratio 0.8 (1.0-2.7) L Triglycerides Level 138 mg/dL (< 150) Cholesterol Level 116 mg/dL (< 200) LDL Cholesterol 54 mg/dL (60-99) L HDL Cholesterol 34 mg/dL (> 60) Cholesterol/HDL Ratio 3.4 (3.3-4.4) Thyroid Stimulating Hormone (TSH) 1.200 uIU/mL (0.300-4.500) Microbiology Date/Time Source Procedure Growth Status 07/04/16 23:25 Urine,Clean Catch Urine Culture - Preliminary Gram Negative Bacillus 1 Resulted Intake and Output 07/05/16 07/06/16 19:00 07:00 Intake Total 2360 ml 1250 ml Output Total 1845 ml 2180 ml Balance 515 ml -930 ml Intake Oral 840 ml 50 ml IV Total 1500 ml 1200 ml Other 20 ml Output Urine Total 1845 ml 2180 ml Assessment/Plan Problem List: (1) LBBB (left bundle branch block) Assessment & Plan: S/P AICD (2) Hemiparesis, right (3) Renal failure (4) Hypotension (5) Hyperkalemia Assessment & Plan: Resolved. S/P Kayexalate. See nephrology note. (6) COPD (chronic obstructive pulmonary disease) Assessment & Plan: See pulmonary note. (7) Cardiomyopathy (8) Acute renal failure (ARF) Assessment & Plan: Improving. See nephrology note. (9) Diabetes mellitus (10) Hypertension Assessment & Plan: Currently hypotensive. (11) Generalized weakness (12) Cerebral vascular disease Status: progressing Assessment/Plan Transfer to telemetry today. JOVANA AGUILAR Jul 06, 2016 13:41
[2016-07-06] MEDS: Morphine Sulfate 2mg/ml Inj IVP PRN ×2 (16:15→20:55)
[2016-07-06] MEDS ORDERED: Zolpidem 5mg tab ORAL PRN (21:00)
[2016-07-06] MEDS ORDERED: Miralax 17gm pkt ORAL PRN (21:00)
[2016-07-07] VITALS (7 sets, daily range): BP systolic 106–122; BP diastolic 46–56
[2016-07-07] MEDS: Sucralfate 1gm tab ORAL SCH ×5 (06:35→20:03)
[2016-07-07] MEDS: Heparin 5000 units/ml inj SUBQ SCH ×2 (08:10→20:00)
[2016-07-07 08:30] LABS: BASOPHILS % (AUTO) 0.8 % (0.0-2.0); LYMPHOCYTES % (AUTO) 21.9 % (20.0-45.0); MEAN CORPUSCULAR HEMOGLOBIN 26.1 PG (27.0-31.0); MEAN CORPUSCULAR HGB CONC 31.9 G/DL (32.0-36.0); MEAN CORPUSCULAR VOLUME 82 FL (80-99); MEAN PLATELET VOLUME 7.3 FL (6.5-10.1); NEUTROPHILS % (AUTO) 65.2 % (45.0-75.0); PLATELET COUNT 199 K/UL (150-450); RED BLOOD COUNT 3.94 M/UL (4.20-5.40); RED CELL DISTRIBUTION WIDTH 15.1 % (11.6-14.8)
[2016-07-07 08:46] LABS: ALBUMIN/GLOBULIN RATIO 0.9 (1.0-2.7); CALCIUM 8.9 mg/dL (8.6-10.2); CREATININE 1.1 mg/dL (0.5-0.9); CRP QUANT 0.3 mg/dL (< 0.5); GLOMERULAR FILTRATION RATE 49.3 mL/min (>60); MAGNESIUM 1.7 mg/dL (1.7-2.5); PHOSPHORUS 2.9 mg/dL (2.5-4.8); POTASSIUM 4.9 mEQ/L (3.4-4.9); TOTAL PROTEIN 6.9 g/dL (6.6-8.7); URIC ACID 5.3 mg/dL (3.0-7.5)
[2016-07-07] MEDS ORDERED: Aspirin EC 81mg tab ORAL SCH (09:00)
[2016-07-07] MEDS ORDERED: Pantoprazole Inj IVP SCH (09:00)
--- NOTE | 2016-07-07 11:25 | General Progress Note ---
Assessment/Plan Status: stable Assessment/Plan status; 1- Acute Renal Failure and HyperKalemia likely due to: - Hypotension and Shock- - Julio Inhibitors and excess diuretics 2- h/o Pacer and Cardiomyopathy- Plan: stop IV fluid- Monitor renal parameters- and serum K Avoid Nephrotoxics- Watch for CHF Sxs OK to med-surg and DC planning per orders Subjective ROS Limited/Unobtainable: No Allergies: Coded Allergies: No Known Allergies (Unverified , 03/12/15) Objective Last 24 Hour Vital Signs Date Time Temp Pulse Resp B/P Pulse Ox O2 Delivery O2 Flow Rate FiO2 07/07/16 08:28 79 18 Room Air 07/07/16 08:03 97.5 80 18 113/49 100 Nasal Cannula 2.0 07/07/16 08:00 60 07/07/16 04:00 80 07/07/16 04:00 97.9 86 20 121/56 100 Nasal Cannula 2.0 07/07/16 00:00 81 07/07/16 00:00 97.2 77 16 121/56 96 Room Air 07/06/16 20:00 81 07/06/16 20:00 98.2 78 20 102/47 96 Room Air 07/06/16 19:24 87 18 Room Air 07/06/16 16:00 97.9 87 21 109/48 97 Room Air 07/06/16 16:00 81 07/06/16 13:00 97.9 86 18 127/54 97 Room Air 07/06/16 12:00 83 16 116/45 98 Room Air 07/06/16 12:00 84 Intake and Output 07/06/16 07/07/16 19:00 07:00 Intake Total 832 ml 700 ml Output Total 1100 ml 1300 ml Balance -268 ml -600 ml Intake Oral 120 ml 200 ml IV Total 712 ml 500 ml Output Urine Total 1100 ml 1300 ml # Voids 1 # Bowel Movements 1 Laboratory Tests 07/07/16 06:50: White Blood Count 9.0, Red Blood Count 3.94L, Hemoglobin 10.3L, Hematocrit 32.2L , Mean Corpuscular Volume 82, Mean Corpuscular Hemoglobin 26.1L, Mean Corpuscular Hemoglobin Concent 31.9L, Red Cell Distribution Width 15.1H, Platelet Count 199, Mean Platelet Volume 7.3, Neutrophils (%) (Auto) 65.2, Lymphocytes (%) (Auto) 21.9, Monocytes (%) (Auto) 9.0, Eosinophils (%) (Auto) 3.0, Basophils (%) (Auto) 0.8, Sodium Level 144, Potassium Level 4.9, Chloride Level 109H, Carbon Dioxide Level 21, Anion Gap 14, Blood Urea Nitrogen 23, Creatinine 1.1H, Estimat Glomerular Filtration Rate 49.3, Glucose Level 169H, Uric Acid 5.3, Calcium Level 8.9, Phosphorus Level 2.9, Magnesium Level 1.7, Total Bilirubin 0.2, Aspartate Amino Transf (AST/SGOT) 16, Alanine Aminotransferase (ALT/SGPT) 8, Alkaline Phosphatase 84, C-Reactive Protein, Quantitative 0.3, Pro-B-Type Natriuretic Peptide 3195H, Total Protein 6.9, Albumin 3.3L, Globulin 3.6, Albumin/Globulin Ratio 0.9L Height (Feet): 5 Height (Inches): 1.00 Weight (Pounds): 161 General Appearance: no apparent distress Objective other PE not changed VALERIO SOTO Jul 07, 2016 11:25
--- NOTE | 2016-07-07 12:37 | Pulmonology Progress Note ---
Assessment/Plan Problems: (1) Acute encephalopathy (2) Hyperkalemia (3) COPD (chronic obstructive pulmonary disease) (4) Renal failure (5) LBBB (left bundle branch block) (6) ATN (acute tubular necrosis) (7) AICD (automatic cardioverter/defibrillator) present (8) Hemiparesis, right Assessment/Plan improving pt/ot med/surg dc planning monitor bp Subjective ROS Limited/Unobtainable: No Constitutional: Reports: no symptoms HEENT: Repors: no symptoms Respiratory: Reports: no symptoms Allergies: Coded Allergies: No Known Allergies (Unverified , 03/12/15) Objective Last 24 Hour Vital Signs Date Time Temp Pulse Resp B/P Pulse Ox O2 Delivery O2 Flow Rate FiO2 07/07/16 11:23 97.2 88 18 106/47 100 Nasal Cannula 2.0 07/07/16 08:28 79 18 Room Air 07/07/16 08:03 97.5 80 18 113/49 100 Nasal Cannula 2.0 07/07/16 08:00 60 07/07/16 04:00 80 07/07/16 04:00 97.9 86 20 121/56 100 Nasal Cannula 2.0 07/07/16 00:00 81 07/07/16 00:00 97.2 77 16 121/56 96 Room Air 07/06/16 20:00 81 07/06/16 20:00 98.2 78 20 102/47 96 Room Air 07/06/16 19:24 87 18 Room Air 07/06/16 16:00 97.9 87 21 109/48 97 Room Air 07/06/16 16:00 81 07/06/16 13:00 97.9 86 18 127/54 97 Room Air Intake and Output 07/06/16 07/07/16 19:00 07:00 Intake Total 832 ml 700 ml Output Total 1100 ml 1300 ml Balance -268 ml -600 ml Intake Oral 120 ml 200 ml IV Total 712 ml 500 ml Output Urine Total 1100 ml 1300 ml # Voids 1 # Bowel Movements 1 General Appearance: WD/WN, no acute distress HEENT: normocephalic, anicteric Respiratory/Chest: chest wall non-tender, lungs clear Cardiovascular: normal peripheral pulses, normal rate Abdomen: normal bowel sounds, soft, non tender Genitourinary: normal external genitalia Extremities: no clubbing Skin: no rash 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 Complete 07/04/16 23:25 Urine,Clean Catch Urine Culture - Final Escherichia Coli Complete 07/05/16 01:08 Rectum VRE Culture - Final NO VANCOMYCIN RESISTANT ENTEROCOCCUS ... Complete Laboratory Tests 07/07/16 06:50: White Blood Count 9.0, Red Blood Count 3.94L, Hemoglobin 10.3L, Hematocrit 32.2L , Mean Corpuscular Volume 82, Mean Corpuscular Hemoglobin 26.1L, Mean Corpuscular Hemoglobin Concent 31.9L, Red Cell Distribution Width 15.1H, Platelet Count 199, Mean Platelet Volume 7.3, Neutrophils (%) (Auto) 65.2, Lymphocytes (%) (Auto) 21.9, Monocytes (%) (Auto) 9.0, Eosinophils (%) (Auto) 3.0, Basophils (%) (Auto) 0.8, Sodium Level 144, Potassium Level 4.9, Chloride Level 109H, Carbon Dioxide Level 21, Anion Gap 14, Blood Urea Nitrogen 23, Creatinine 1.1H, Estimat Glomerular Filtration Rate 49.3, Glucose Level 169H, Uric Acid 5.3, Calcium Level 8.9, Phosphorus Level 2.9, Magnesium Level 1.7, Total Bilirubin 0.2, Aspartate Amino Transf (AST/SGOT) 16, Alanine Aminotransferase (ALT/SGPT) 8, Alkaline Phosphatase 84, C-Reactive Protein, Quantitative 0.3, Pro-B-Type Natriuretic Peptide 3195H, Total Protein 6.9, Albumin 3.3L, Globulin 3.6, Albumin/Globulin Ratio 0.9L Current Medications Medications (Trade) Dose Ordered Sig/[place] Route PRN Reason Start Time Stop Time Status Last Admin Dose Admin Acetaminophen (Tylenol) 650 mg Q4H PRN ORAL T>100.5 07/06/16 12:30 08/05/16 12:29 Albuterol/ Ipratropium (DuoNeb 0.5-3(2.5)mg/3ml) 3 ml Q6H PRN HHN dyspnea 07/06/16 13:00 07/11/16 12:59 Aspirin (Ecotrin) 81 mg DAILY ORAL 07/07/16 09:00 08/06/16 08:59 07/07/16 08:08 Atorvastatin Calcium (Lipitor) 10 mg BEDTIME ORAL 07/06/16 21:00 08/05/16 20:59 07/06/16 20:55 Dextrose (Dextrose 50%) STAT PRN IV Hypoglycemia 07/06/16 13:00 08/05/16 12:59 Heparin Sodium (Porcine) (Heparin 5000 units/ml) 5,000 units EVERY 12 HOURS SUBQ 07/06/16 21:00 08/05/16 20:59 07/07/16 08:10 Morphine Sulfate (Morphine Sulfate) 1 mg Q4H PRN IVP PAIN 4-10 07/06/16 13:00 07/13/16 12:59 07/06/16 20:55 Ondansetron HCl (Zofran) 4 mg Q6H PRN IVP Nausea & Vomiting 07/06/16 12:30 08/05/16 12:29 Polyethylene Glycol (Miralax) 17 gm HSPRN PRN ORAL Constipation 07/06/16 21:00 08/05/16 20:59 Ranitidine HCl (Zantac) 150 mg BEDTIME ORAL 07/07/16 21:00 08/06/16 20:59 Sucralfate (Carafate) 1 gm AC+HS ORAL 07/06/16 16:30 08/05/16 16:29 07/07/16 11:08 Zolpidem Tartrate (Ambien) 5 mg HSPRN PRN ORAL Insomnia 07/06/16 21:00 08/05/16 20:59 ERVIN COHN Jul 07, 2016 12:37
--- NOTE | 2016-07-07 15:30 | Internal Med Progress Note ---
Subjective Date of Service: Jul 07, 2016 Physician Name Jovana Aguilar Attending Physician Brendan Wright MD Current Medications Medications (Trade) Dose Ordered Sig/[place] Route PRN Reason Start Time Stop Time Status Last Admin Dose Admin Acetaminophen (Tylenol) 650 mg Q4H PRN ORAL T>100.5 07/06/16 12:30 08/05/16 12:29 Albuterol/ Ipratropium (DuoNeb 0.5-3(2.5)mg/3ml) 3 ml Q6H PRN HHN dyspnea 07/06/16 13:00 07/11/16 12:59 Aspirin (Ecotrin) 81 mg DAILY ORAL 07/07/16 09:00 08/06/16 08:59 07/07/16 08:08 Atorvastatin Calcium (Lipitor) 10 mg BEDTIME ORAL 07/06/16 21:00 08/05/16 20:59 07/06/16 20:55 Dextrose (Dextrose 50%) STAT PRN IV Hypoglycemia 07/06/16 13:00 08/05/16 12:59 Heparin Sodium (Porcine) (Heparin 5000 units/ml) 5,000 units EVERY 12 HOURS SUBQ 07/06/16 21:00 08/05/16 20:59 07/07/16 08:10 Morphine Sulfate (Morphine Sulfate) 1 mg Q4H PRN IVP PAIN 4-10 07/06/16 13:00 07/13/16 12:59 07/06/16 20:55 Ondansetron HCl (Zofran) 4 mg Q6H PRN IVP Nausea & Vomiting 07/06/16 12:30 08/05/16 12:29 Polyethylene Glycol (Miralax) 17 gm HSPRN PRN ORAL Constipation 07/06/16 21:00 08/05/16 20:59 Ranitidine HCl (Zantac) 150 mg BEDTIME ORAL 07/07/16 21:00 08/06/16 20:59 Sucralfate (Carafate) 1 gm AC+HS ORAL 07/06/16 16:30 08/05/16 16:29 07/07/16 11:08 Zolpidem Tartrate (Ambien) 5 mg HSPRN PRN ORAL Insomnia 07/06/16 21:00 08/05/16 20:59 Allergies: Coded Allergies: No Known Allergies (Unverified , 03/12/15) ROS Limited/Unobtainable: No Constitutional: Reports: no symptoms HEENT: Reports: no symptoms Cardiovascular: Reports: no symptoms Respiratory: Reports: no symptoms Gastrointestinal/Abdominal: Reports: no symptoms Genitourinary: Reports: no symptoms 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: Reports: weakness Subjective 71 YO F admitted with generalized weakness. Now hyperkalemia and renal failure. Cover for Int [facility]-Dr Wright. Objective Last Vital Signs Date Time Temp Pulse Resp B/P Pulse Ox O2 Delivery O2 Flow Rate FiO2 07/07/16 12:00 75 07/07/16 11:23 97.2 18 106/47 100 Nasal Cannula 2.0 Laboratory Tests Test 07/07/16 06:50 White Blood Count 9.0 K/UL (4.8-10.8) Red Blood Count 3.94 M/UL (4.20-5.40) L Hemoglobin 10.3 G/DL (12.0-16.0) L Hematocrit 32.2 % (37.0-47.0) L Mean Corpuscular Volume 82 FL (80-99) Mean Corpuscular Hemoglobin 26.1 PG (27.0-31.0) L Mean Corpuscular Hemoglobin Concent 31.9 G/DL (32.0-36.0) L Red Cell Distribution Width 15.1 % (11.6-14.8) H Platelet Count 199 K/UL (150-450) Mean Platelet Volume 7.3 FL (6.5-10.1) Neutrophils (%) (Auto) 65.2 % (45.0-75.0) Lymphocytes (%) (Auto) 21.9 % (20.0-45.0) Monocytes (%) (Auto) 9.0 % (1.0-10.0) Eosinophils (%) (Auto) 3.0 % (0.0-3.0) Basophils (%) (Auto) 0.8 % (0.0-2.0) Sodium Level 144 mEQ/L (135-145) Potassium Level 4.9 mEQ/L (3.4-4.9) Chloride Level 109 mEQ/L (98-107) H Carbon Dioxide Level 21 mEQ/L (20-30) Anion Gap 14 (5-15) Blood Urea Nitrogen 23 mg/dL (7-23) Creatinine 1.1 mg/dL (0.5-0.9) H Estimat Glomerular Filtration Rate 49.3 mL/min (>60) Glucose Level 169 mg/dL (74-106) H Uric Acid 5.3 mg/dL (3.0-7.5) Calcium Level 8.9 mg/dL (8.6-10.2) Phosphorus Level 2.9 mg/dL (2.5-4.8) Magnesium Level 1.7 mg/dL (1.7-2.5) Total Bilirubin 0.2 mg/dL (0.0-1.2) Aspartate Amino Transf (AST/SGOT) 16 U/L (5-40) Alanine Aminotransferase (ALT/SGPT) 8 U/L (3-33) Alkaline Phosphatase 84 U/L (35-104) C-Reactive Protein, Quantitative 0.3 mg/dL (< 0.5) Pro-B-Type Natriuretic Peptide 3195 pg/mL (0-125) H Total Protein 6.9 g/dL (6.6-8.7) Albumin 3.3 g/dL (3.5-5.2) L Globulin 3.6 g/dL Albumin/Globulin Ratio 0.9 (1.0-2.7) L Microbiology Date/Time Source Procedure Growth Status 07/05/16 01:08 Nasal Nares MRSA Culture - Final NO METHICILLIN RESISTANT STAPH AUREUS... Complete 07/04/16 23:25 Urine,Clean Catch Urine Culture - Final Escherichia Coli Complete 07/05/16 01:08 Rectum VRE Culture - Final NO VANCOMYCIN RESISTANT ENTEROCOCCUS ... Complete Intake and Output 07/06/16 07/07/16 19:00 07:00 Intake Total 832 ml 700 ml Output Total 1100 ml 1300 ml Balance -268 ml -600 ml Intake Oral 120 ml 200 ml IV Total 712 ml 500 ml Output Urine Total 1100 ml 1300 ml # Voids 1 # Bowel Movements 1 Objective General Appearance: WD/WN, alert, mild distress EENT: PERRL/EOMI, normal ENT inspection, TMs normal Neck: non-tender, normal alignment, supple, normal inspection Cardiovascular: normal peripheral pulses, normal rate, regular rhythm, no gallop/murmur, no JVD Respiratory/Chest: chest wall non-tender, lungs clear, normal breath sounds, no respiratory distress, no accessory muscle use Abdomen: normal bowel sounds, non tender, soft, no organomegaly, no mass Extremities: other - right hemiparesis 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 Secondary to shock (4) Hypotension (5) Hyperkalemia Assessment & Plan: Resolved; due to JAROCHO inhibitor and diuretics. Hold JAROCHO and diuretic. S/P Kayexalate. See nephrology note. (6) COPD (chronic obstructive pulmonary disease) Assessment & Plan: See pulmonary note. (7) Cardiomyopathy (8) Acute renal failure (ARF) Assessment & Plan: Improving. See nephrology note. (9) Diabetes mellitus (10) Hypertension Assessment & Plan: Hold JAROCHO inhibitor and diuretic per nephrology. (11) Generalized weakness (12) Cerebral vascular disease Status: progressing JOVANA AGUILAR Jul 07, 2016 15:29
[2016-07-08] VITALS: BP 101/42
[2016-07-08] MEDS ORDERED: DuoNeb 0.5-3(2.5)mg/3ml neb HHN PRN (01:00)
[2016-07-08] MEDS ORDERED: Morphine Sulfate 2mg/ml Inj IVP PRN (01:00)
[2016-07-08 04:00] VITALS: BP 112/52
[2016-07-08] MEDS: Sucralfate 1gm tab ORAL SCH ×5 (05:56→21:00)
[2016-07-08] MEDS: NovoLOG Insulin Flexpen SUBQ SCH ×4 (07:15→21:23)
[2016-07-08 07:27] LABS: BASOPHILS % (AUTO) 1.1 % (0.0-2.0); EOSINOPHILS % (AUTO) 6.1 % (0.0-3.0); LYMPHOCYTES % (AUTO) 27.8 % (20.0-45.0); MEAN CORPUSCULAR HGB CONC 31.8 G/DL (32.0-36.0); MEAN CORPUSCULAR VOLUME 82 FL (80-99); MEAN PLATELET VOLUME 8.1 FL (6.5-10.1); MONOCYTES % (AUTO) 10.1 % (1.0-10.0); NEUTROPHILS % (AUTO) 54.9 % (45.0-75.0); PLATELET COUNT 197 K/UL (150-450); RED BLOOD COUNT 3.81 M/UL (4.20-5.40); RED CELL DISTRIBUTION WIDTH 14.9 % (11.6-14.8); WHITE BLOOD COUNT 10.4 K/UL (4.8-10.8)
[2016-07-08 07:49] LABS: CALCIUM 9.1 mg/dL (8.6-10.2); POTASSIUM 4.3 mEQ/L (3.4-4.9)
[2016-07-08 08:30] VITALS: BP 107/52
[2016-07-08] MEDS: Aspirin EC 81mg tab ORAL SCH (09:18)
[2016-07-08] MEDS: Heparin 5000 units/ml inj SUBQ SCH ×2 (09:19→21:24)
[2016-07-08 11:56] VITALS: BP 110/55
--- NOTE | 2016-07-08 13:58 | General Progress Note ---
Assessment/Plan Status: stable Status Narrative renal parameters now wnl Assessment/Plan status; 1- Acute Renal Failure and HyperKalemia likely due to: - Hypotension and Shock- - Julio Inhibitors and excess diuretics 2- h/o Pacer and Cardiomyopathy- Plan: stop IV fluid- Monitor renal parameters- and serum K Avoid Nephrotoxics- Watch for CHF Sxs OK to med-surg and DC planning per orders Subjective ROS Limited/Unobtainable: No Allergies: Coded Allergies: No Known Allergies (Unverified , 03/12/15) Objective Last 24 Hour Vital Signs Date Time Temp Pulse Resp B/P Pulse Ox O2 Delivery O2 Flow Rate FiO2 07/08/16 11:56 98.0 82 20 110/55 Room Air 07/08/16 08:45 84 14 Room Air 07/08/16 08:30 98.2 85 20 107/52 96 Room Air 07/08/16 04:00 98.2 83 18 112/52 96 Room Air 07/08/16 00:00 98.6 63 18 101/42 98 Room Air 07/07/16 22:30 98.2 60 18 122/50 Room Air 07/07/16 20:00 98.1 60 20 110/47 98 Room Air 07/07/16 20:00 63 07/07/16 19:10 76 14 Room Air 07/07/16 16:00 60 07/07/16 16:00 97.0 62 21 119/46 97 Room Air Intake and Output 07/07/16 07/08/16 19:00 07:00 Intake Total 635 ml 120 ml Output Total 300 ml 1300 ml Balance 335 ml -1180 ml Intake Oral 435 ml 120 ml IV Total 200 ml Output Urine Total 300 ml 1300 ml # Bowel Movements 1 1 Laboratory Tests 07/08/16 05:30: White Blood Count 10.4, Red Blood Count 3.81L, Hemoglobin 9.9L, Hematocrit 31.1L , Mean Corpuscular Volume 82, Mean Corpuscular Hemoglobin 26.0L, Mean Corpuscular Hemoglobin Concent 31.8L, Red Cell Distribution Width 14.9H, Platelet Count 197, Mean Platelet Volume 8.1, Neutrophils (%) (Auto) 54.9, Lymphocytes (%) (Auto) 27.8, Monocytes (%) (Auto) 10.1H, Eosinophils (%) (Auto) 6.1H, Basophils (%) (Auto) 1.1, Sodium Level 142, Potassium Level 4.3, Chloride Level 107, Carbon Dioxide Level 21, Anion Gap 14, Blood Urea Nitrogen 16, Creatinine 1.0H, Estimat Glomerular Filtration Rate 55.0, Glucose Level 131H, Calcium Level 9.1 Height (Feet): 5 Height (Inches): 1.00 Weight (Pounds): 161 General Appearance: no apparent distress Objective other PE not changed VALERIO SOTO Jul 08, 2016 13:58
--- NOTE | 2016-07-08 15:50 | Pulmonology Progress Note ---
Assessment/Plan Problems: (1) Acute encephalopathy (2) Hyperkalemia (3) COPD (chronic obstructive pulmonary disease) (4) Renal failure (5) LBBB (left bundle branch block) (6) ATN (acute tubular necrosis) (7) AICD (automatic cardioverter/defibrillator) present (8) Hemiparesis, right Assessment/Plan improving pt/ot med/surg dc planning monitor bp all notes reviewed Subjective ROS Limited/Unobtainable: No Constitutional: Reports: no symptoms HEENT: Repors: no symptoms Respiratory: Reports: no symptoms Cardiovascular: Reports: no symptoms Allergies: Coded Allergies: No Known Allergies (Unverified , 03/12/15) Objective Last 24 Hour Vital Signs Date Time Temp Pulse Resp B/P Pulse Ox O2 Delivery O2 Flow Rate FiO2 07/08/16 11:56 98.0 82 20 110/55 Room Air 07/08/16 08:45 84 14 Room Air 07/08/16 08:30 98.2 85 20 107/52 96 Room Air 07/08/16 04:00 98.2 83 18 112/52 96 Room Air 07/08/16 00:00 98.6 63 18 101/42 98 Room Air 07/07/16 22:30 98.2 60 18 122/50 Room Air 07/07/16 20:00 98.1 60 20 110/47 98 Room Air 07/07/16 20:00 63 07/07/16 19:10 76 14 Room Air 07/07/16 16:00 60 07/07/16 16:00 97.0 62 21 119/46 97 Room Air Intake and Output 07/07/16 07/08/16 19:00 07:00 Intake Total 635 ml 120 ml Output Total 300 ml 1300 ml Balance 335 ml -1180 ml Intake Oral 435 ml 120 ml IV Total 200 ml Output Urine Total 300 ml 1300 ml # Bowel Movements 1 1 HEENT: normocephalic, atraumatic Respiratory/Chest: chest wall non-tender, lungs clear Breasts: no masses Cardiovascular: normal peripheral pulses, normal rate Abdomen: soft, non tender Genitourinary: normal external genitalia Skin: no rash 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 Laboratory Tests 07/08/16 05:30: White Blood Count 10.4, Red Blood Count 3.81L, Hemoglobin 9.9L, Hematocrit 31.1L , Mean Corpuscular Volume 82, Mean Corpuscular Hemoglobin 26.0L, Mean Corpuscular Hemoglobin Concent 31.8L, Red Cell Distribution Width 14.9H, Platelet Count 197, Mean Platelet Volume 8.1, Neutrophils (%) (Auto) 54.9, Lymphocytes (%) (Auto) 27.8, Monocytes (%) (Auto) 10.1H, Eosinophils (%) (Auto) 6.1H, Basophils (%) (Auto) 1.1, Sodium Level 142, Potassium Level 4.3, Chloride Level 107, Carbon Dioxide Level 21, Anion Gap 14, Blood Urea Nitrogen 16, Creatinine 1.0H, Estimat Glomerular Filtration Rate 55.0, Glucose Level 131H, Calcium Level 9.1 Current Medications Medications (Trade) Dose Ordered Sig/[place] Route PRN Reason Start Time Stop Time Status Last Admin Dose Admin Acetaminophen (Tylenol) 650 mg Q4H PRN ORAL T>100.5 07/08/16 00:30 08/07/16 00:29 Albuterol/ Ipratropium (DuoNeb 0.5-3(2.5)mg/3ml) 3 ml Q6H PRN HHN dyspnea 07/08/16 01:00 07/13/16 00:59 Aspirin (Ecotrin) 81 mg DAILY ORAL 07/08/16 09:00 08/07/16 08:59 07/08/16 09:18 Atorvastatin Calcium (Lipitor) 10 mg BEDTIME ORAL 07/08/16 21:00 08/07/16 20:59 Dextrose (Dextrose 50%) STAT PRN IV Hypoglycemia 07/07/16 23:45 08/06/16 23:44 Heparin Sodium (Porcine) (Heparin 5000 units/ml) 5,000 units EVERY 12 HOURS SUBQ 07/08/16 09:00 08/07/16 08:59 07/08/16 09:19 Insulin Aspart (NovoLOG) BEFORE MEALS AND HS SUBQ 07/08/16 06:30 08/07/16 06:29 07/08/16 12:31 Morphine Sulfate (Morphine Sulfate) 1 mg Q4H PRN IVP PAIN 4-10 07/08/16 01:00 07/15/16 00:59 Ondansetron HCl (Zofran) 4 mg Q6H PRN IVP Nausea & Vomiting 07/08/16 00:30 08/07/16 00:29 Polyethylene Glycol (Miralax) 17 gm HSPRN PRN ORAL Constipation 07/08/16 21:00 08/07/16 20:59 Ranitidine HCl (Zantac) 150 mg BEDTIME ORAL 07/08/16 21:00 08/07/16 20:59 Sucralfate (Carafate) 1 gm AC+HS ORAL 07/08/16 06:30 08/07/16 06:29 Zolpidem Tartrate (Ambien) 5 mg HSPRN PRN ORAL Insomnia 07/08/16 21:00 08/07/16 20:59 ERVIN COHN Jul 08, 2016 15:50
[2016-07-08 16:00] VITALS: BP 129/66
--- NOTE | 2016-07-08 18:00 | Internal Med Progress Note ---
Subjective Date of Service: Jul 08, 2016 Physician Name Jovana Aguilar Attending Physician Brendan Wright MD Current Medications Medications (Trade) Dose Ordered Sig/[place] Route PRN Reason Start Time Stop Time Status Last Admin Dose Admin Acetaminophen (Tylenol) 650 mg Q4H PRN ORAL T>100.5 07/08/16 00:30 08/07/16 00:29 Albuterol/ Ipratropium (DuoNeb 0.5-3(2.5)mg/3ml) 3 ml Q6H PRN HHN dyspnea 07/08/16 01:00 07/13/16 00:59 Aspirin (Ecotrin) 81 mg DAILY ORAL 07/08/16 09:00 08/07/16 08:59 07/08/16 09:18 Atorvastatin Calcium (Lipitor) 10 mg BEDTIME ORAL 07/08/16 21:00 08/07/16 20:59 Dextrose (Dextrose 50%) STAT PRN IV Hypoglycemia 07/07/16 23:45 08/06/16 23:44 Heparin Sodium (Porcine) (Heparin 5000 units/ml) 5,000 units EVERY 12 HOURS SUBQ 07/08/16 09:00 08/07/16 08:59 07/08/16 09:19 Insulin Aspart (NovoLOG) BEFORE MEALS AND HS SUBQ 07/08/16 06:30 08/07/16 06:29 07/08/16 17:08 Morphine Sulfate (Morphine Sulfate) 1 mg Q4H PRN IVP PAIN 4-10 07/08/16 01:00 07/15/16 00:59 07/08/16 17:05 Ondansetron HCl (Zofran) 4 mg Q6H PRN IVP Nausea & Vomiting 07/08/16 00:30 08/07/16 00:29 Polyethylene Glycol (Miralax) 17 gm HSPRN PRN ORAL Constipation 07/08/16 21:00 08/07/16 20:59 Ranitidine HCl (Zantac) 150 mg BEDTIME ORAL 07/08/16 21:00 08/07/16 20:59 Sucralfate (Carafate) 1 gm AC+HS ORAL 07/08/16 06:30 08/07/16 06:29 07/08/16 17:05 Zolpidem Tartrate (Ambien) 5 mg HSPRN PRN ORAL Insomnia 07/08/16 21:00 08/07/16 20:59 Allergies: Coded Allergies: No Known Allergies (Unverified , 03/12/15) ROS Limited/Unobtainable: No Constitutional: Reports: no symptoms HEENT: Reports: no symptoms Cardiovascular: Reports: no symptoms Respiratory: Reports: no symptoms Gastrointestinal/Abdominal: Reports: no symptoms Genitourinary: Reports: no symptoms 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: Reports: weakness Subjective 71 YO F admitted with generalized weakness. Now hyperkalemia and renal failure. Cover for Int Med-Dr Wright. Objective Last Vital Signs Date Time Temp Pulse Resp B/P Pulse Ox O2 Delivery O2 Flow Rate FiO2 07/08/16 17:35 98.0 07/08/16 16:00 80 19 129/66 97 Nasal Cannula 2.0 Laboratory Tests Test 07/08/16 05:30 White Blood Count 10.4 K/UL (4.8-10.8) Red Blood Count 3.81 M/UL (4.20-5.40) L Hemoglobin 9.9 G/DL (12.0-16.0) L Hematocrit 31.1 % (37.0-47.0) L Mean Corpuscular Volume 82 FL (80-99) Mean Corpuscular Hemoglobin 26.0 PG (27.0-31.0) L Mean Corpuscular Hemoglobin Concent 31.8 G/DL (32.0-36.0) L Red Cell Distribution Width 14.9 % (11.6-14.8) H Platelet Count 197 K/UL (150-450) Mean Platelet Volume 8.1 FL (6.5-10.1) Neutrophils (%) (Auto) 54.9 % (45.0-75.0) Lymphocytes (%) (Auto) 27.8 % (20.0-45.0) Monocytes (%) (Auto) 10.1 % (1.0-10.0) H Eosinophils (%) (Auto) 6.1 % (0.0-3.0) H Basophils (%) (Auto) 1.1 % (0.0-2.0) Sodium Level 142 mEQ/L (135-145) Potassium Level 4.3 mEQ/L (3.4-4.9) Chloride Level 107 mEQ/L (98-107) Carbon Dioxide Level 21 mEQ/L (20-30) Anion Gap 14 (5-15) Blood Urea Nitrogen 16 mg/dL (7-23) Creatinine 1.0 mg/dL (0.5-0.9) H Estimat Glomerular Filtration Rate 55.0 mL/min (>60) Glucose Level 131 mg/dL (74-106) H Calcium Level 9.1 mg/dL (8.6-10.2) Intake and Output 07/07/16 07/08/16 19:00 07:00 Intake Total 635 ml 120 ml Output Total 300 ml 1300 ml Balance 335 ml -1180 ml Intake Oral 435 ml 120 ml IV Total 200 ml Output Urine Total 300 ml 1300 ml # Bowel Movements 1 1 Objective General Appearance: WD/WN, alert, mild distress EENT: PERRL/EOMI, normal ENT inspection, TMs normal Neck: non-tender, normal alignment, supple, normal inspection Cardiovascular: normal peripheral pulses, normal rate, regular rhythm, no gallop/murmur, no JVD Respiratory/Chest: Nasal canula; chest wall non-tender, lungs clear, normal breath sounds, no respiratory distress, no accessory muscle use Abdomen: normal bowel sounds, non tender, soft, no organomegaly, no mass Extremities: other - right hemiparesis Neurologic: ratoprinter II-XII 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 Skin: normal pigmentation, warm/dry Assessment/Plan Problem List: (1) LBBB (left bundle branch block) Assessment & Plan: S/P AICD (2) Hemiparesis, right (3) Renal failure Assessment & Plan: See nephrology note. Secondary to shock (4) Hypotension (5) Hyperkalemia Assessment & Plan: Resolved; due to JAROCHO inhibitor and diuretics. Hold JAROCHO and diuretic. S/P Kayexalate. See nephrology note. (6) COPD (chronic obstructive pulmonary disease) Assessment & Plan: See pulmonary note. (7) Cardiomyopathy (8) Acute renal failure (ARF) Assessment & Plan: Improving. See nephrology note. (9) Diabetes mellitus (10) Hypertension Assessment & Plan: Hold JAROCHO inhibitor and diuretic per nephrology. (11) Generalized weakness (12) Cerebral vascular disease Status: progressing JOVANA AGUILAR Jul 08, 2016 18:00
[2016-07-08 20:00] VITALS: BP 107/57
[2016-07-08] MEDS ORDERED: Miralax 17gm pkt ORAL PRN (21:00)
[2016-07-08] MEDS ORDERED: Zolpidem 5mg tab ORAL PRN (21:00)
[2016-07-09] VITALS: BP 105/48
[2016-07-09 04:00] VITALS: BP 115/45
[2016-07-09] MEDS: Sucralfate 1gm tab ORAL SCH ×5 (06:29→20:45)
[2016-07-09] MEDS: NovoLOG Insulin Flexpen SUBQ SCH ×4 (06:29→20:44)
[2016-07-09 06:55] LABS: BASOPHILS % (AUTO) 1.1 % (0.0-2.0); EOSINOPHILS % (AUTO) 4.8 % (0.0-3.0); LYMPHOCYTES % (AUTO) 29.4 % (20.0-45.0); MEAN CORPUSCULAR HEMOGLOBIN 26.4 PG (27.0-31.0); MEAN CORPUSCULAR HGB CONC 32.4 G/DL (32.0-36.0); MEAN CORPUSCULAR VOLUME 81 FL (80-99); MEAN PLATELET VOLUME 7.9 FL (6.5-10.1); MONOCYTES % (AUTO) 10.1 % (1.0-10.0); NEUTROPHILS % (AUTO) 54.7 % (45.0-75.0); PLATELET COUNT 188 K/UL (150-450); RED BLOOD COUNT 3.91 M/UL (4.20-5.40); RED CELL DISTRIBUTION WIDTH 15.2 % (11.6-14.8); WHITE BLOOD COUNT 9.9 K/UL (4.8-10.8)
[2016-07-09 07:41] LABS: CALCIUM 9.2 mg/dL (8.6-10.2); CREATININE 1.1 mg/dL (0.5-0.9); GLOMERULAR FILTRATION RATE 49.3 mL/min (>60); POTASSIUM 4.1 mEQ/L (3.4-4.9)
[2016-07-09 08:09] VITALS: BP 118/58
[2016-07-09] MEDS: Aspirin EC 81mg tab ORAL SCH (09:29)
[2016-07-09] MEDS: Heparin 5000 units/ml inj SUBQ SCH ×2 (09:30→20:44)
[2016-07-09 11:52] VITALS: BP 113/50
--- NOTE | 2016-07-09 12:16 | General Progress Note ---
Assessment/Plan Status: stable Assessment/Plan status; 1- Acute Renal Failure and HyperKalemia likely due to: - Hypotension and Shock- - Julio Inhibitors and excess diuretics 2- h/o Pacer and Cardiomyopathy- Plan: stop IV fluid- Monitor renal parameters- and serum K Avoid Nephrotoxics- Watch for CHF Sxs OK to med-surg and DC planning per orders Subjective ROS Limited/Unobtainable: No Allergies: Coded Allergies: No Known Allergies (Unverified , 03/12/15) Objective Last 24 Hour Vital Signs Date Time Temp Pulse Resp B/P Pulse Ox O2 Delivery O2 Flow Rate FiO2 07/09/16 11:52 98.4 65 20 113/50 96 Room Air 07/09/16 08:09 97.0 89 19 118/58 96 Room Air 07/09/16 07:59 65 16 Room Air 07/09/16 04:00 97.8 77 19 115/45 97 Room Air 07/09/16 00:00 97.7 68 19 105/48 97 Room Air 07/08/16 20:00 98.4 81 20 107/57 100 Nasal Cannula 2.0 07/08/16 19:51 61 16 Room Air 07/08/16 17:35 98.0 07/08/16 16:00 97.8 80 19 129/66 97 Nasal Cannula 2.0 Intake and Output 07/08/16 07/09/16 19:00 07:00 Intake Total 480 ml 540 ml Output Total 600 ml 850 ml Balance -120 ml -310 ml Intake Oral 480 ml 540 ml Output Urine Total 600 ml 850 ml # Voids 1 # Bowel Movements 2 Laboratory Tests 07/09/16 05:30: White Blood Count 9.9, Red Blood Count 3.91L, Hemoglobin 10.3L, Hematocrit 31.8L , Mean Corpuscular Volume 81, Mean Corpuscular Hemoglobin 26.4L, Mean Corpuscular Hemoglobin Concent 32.4, Red Cell Distribution Width 15.2H, Platelet Count 188, Mean Platelet Volume 7.9, Neutrophils (%) (Auto) 54.7, Lymphocytes (%) (Auto) 29.4, Monocytes (%) (Auto) 10.1H, Eosinophils (%) (Auto) 4.8H, Basophils (%) (Auto) 1.1, Sodium Level 142, Potassium Level 4.1, Chloride Level 104, Carbon Dioxide Level 20, Anion Gap 18H, Blood Urea Nitrogen 15, Creatinine 1.1H, Estimat Glomerular Filtration Rate 49.3, Glucose Level 129H, Calcium Level 9.2 Height (Feet): 5 Height (Inches): 1.00 Weight (Pounds): 161 General Appearance: no apparent distress Objective other PE not changed VALERIO SOTO Jul 09, 2016 12:16
--- NOTE | 2016-07-09 14:01 | Internal Med Progress Note ---
Subjective Date of Service: Jul 09, 2016 Physician Name Jovana Aguilar Attending Physician Brendan Wright MD Current Medications Medications (Trade) Dose Ordered Sig/[place] Route PRN Reason Start Time Stop Time Status Last Admin Dose Admin Acetaminophen (Tylenol) 650 mg Q4H PRN ORAL T>100.5 07/08/16 00:30 08/07/16 00:29 Albuterol/ Ipratropium (DuoNeb 0.5-3(2.5)mg/3ml) 3 ml Q6H PRN HHN dyspnea 07/08/16 01:00 07/13/16 00:59 Aspirin (Ecotrin) 81 mg DAILY ORAL 07/08/16 09:00 08/07/16 08:59 07/09/16 09:29 Atorvastatin Calcium (Lipitor) 10 mg BEDTIME ORAL 07/08/16 21:00 08/07/16 20:59 07/08/16 21:18 Dextrose (Dextrose 50%) STAT PRN IV Hypoglycemia 07/07/16 23:45 08/06/16 23:44 Heparin Sodium (Porcine) (Heparin 5000 units/ml) 5,000 units EVERY 12 HOURS SUBQ 07/08/16 09:00 08/07/16 08:59 07/09/16 09:30 Insulin Aspart (NovoLOG) BEFORE MEALS AND HS SUBQ 07/08/16 06:30 08/07/16 06:29 07/09/16 11:53 Morphine Sulfate (Morphine Sulfate) 1 mg Q4H PRN IVP PAIN 4-10 07/08/16 01:00 07/15/16 00:59 07/08/16 17:05 Ondansetron HCl (Zofran) 4 mg Q6H PRN IVP Nausea & Vomiting 07/08/16 00:30 08/07/16 00:29 Polyethylene Glycol (Miralax) 17 gm HSPRN PRN ORAL Constipation 07/08/16 21:00 08/07/16 20:59 Ranitidine HCl (Zantac) 150 mg BEDTIME ORAL 07/08/16 21:00 08/07/16 20:59 07/08/16 21:18 Sucralfate (Carafate) 1 gm AC+HS ORAL 07/08/16 06:30 08/07/16 06:29 07/08/16 17:05 Zolpidem Tartrate (Ambien) 5 mg HSPRN PRN ORAL Insomnia 07/08/16 21:00 08/07/16 20:59 Allergies: Coded Allergies: No Known Allergies (Unverified , 03/12/15) ROS Limited/Unobtainable: No Constitutional: Reports: no symptoms HEENT: Reports: no symptoms Cardiovascular: Reports: no symptoms Respiratory: Reports: no symptoms Gastrointestinal/Abdominal: Reports: no symptoms Genitourinary: Reports: no symptoms 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: Reports: weakness Subjective 71 YO F admitted with generalized weakness. Now hyperkalemia and renal failure. Worsening Jose D heart failure. Cover for Int Med-Dr Wright. Objective Last Vital Signs Date Time Temp Pulse Resp B/P Pulse Ox O2 Delivery O2 Flow Rate FiO2 07/09/16 11:52 98.4 65 20 113/50 96 Room Air 07/08/16 20:00 2.0 Laboratory Tests Test 07/09/16 05:30 White Blood Count 9.9 K/UL (4.8-10.8) Red Blood Count 3.91 M/UL (4.20-5.40) L Hemoglobin 10.3 G/DL (12.0-16.0) L Hematocrit 31.8 % (37.0-47.0) L Mean Corpuscular Volume 81 FL (80-99) Mean Corpuscular Hemoglobin 26.4 PG (27.0-31.0) L Mean Corpuscular Hemoglobin Concent 32.4 G/DL (32.0-36.0) Red Cell Distribution Width 15.2 % (11.6-14.8) H Platelet Count 188 K/UL (150-450) Mean Platelet Volume 7.9 FL (6.5-10.1) Neutrophils (%) (Auto) 54.7 % (45.0-75.0) Lymphocytes (%) (Auto) 29.4 % (20.0-45.0) Monocytes (%) (Auto) 10.1 % (1.0-10.0) H Eosinophils (%) (Auto) 4.8 % (0.0-3.0) H Basophils (%) (Auto) 1.1 % (0.0-2.0) Sodium Level 142 mEQ/L (135-145) Potassium Level 4.1 mEQ/L (3.4-4.9) Chloride Level 104 mEQ/L (98-107) Carbon Dioxide Level 20 mEQ/L (20-30) Anion Gap 18 (5-15) H Blood Urea Nitrogen 15 mg/dL (7-23) Creatinine 1.1 mg/dL (0.5-0.9) H Estimat Glomerular Filtration Rate 49.3 mL/min (>60) Glucose Level 129 mg/dL (74-106) H Calcium Level 9.2 mg/dL (8.6-10.2) Intake and Output 07/08/16 07/09/16 19:00 07:00 Intake Total 480 ml 540 ml Output Total 600 ml 850 ml Balance -120 ml -310 ml Intake Oral 480 ml 540 ml Output Urine Total 600 ml 850 ml # Voids 1 # Bowel Movements 2 Objective General Appearance: WD/WN, alert, mild distress EENT: PERRL/EOMI, normal ENT inspection, TMs normal Neck: non-tender, normal alignment, supple, normal inspection Cardiovascular: normal peripheral pulses, normal rate, regular rhythm, no gallop/murmur, no JVD Respiratory/Chest: Nasal canula; chest wall non-tender, lungs clear, normal breath sounds, no respiratory distress, no accessory muscle use Abdomen: normal bowel sounds, non tender, soft, no organomegaly, no mass Extremities: other - right hemiparesis Neurologic: hand booked folder and stitcher II-XII 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 Skin: normal pigmentation, warm/dry Assessment/Plan Problem List: (1) LBBB (left bundle branch block) Assessment & Plan: S/P AICD (2) Hemiparesis, right (3) Renal failure Assessment & Plan: See nephrology note. Secondary to shock (4) Hypotension (5) Hyperkalemia Assessment & Plan: Resolved; due to JAROCHO inhibitor and diuretics. Hold JAROCHO and diuretic. S/P Kayexalate. See nephrology note. (6) COPD (chronic obstructive pulmonary disease) Assessment & Plan: See pulmonary note. (7) Cardiomyopathy (8) Acute renal failure (ARF) Assessment & Plan: Improving. See nephrology note. (9) Diabetes mellitus (10) Hypertension Assessment & Plan: Hold JAROCHO inhibitor and diuretic per nephrology. (11) Generalized weakness (12) Cerebral vascular disease (13) Acute CHF Assessment & Plan: Await cardiology consult. Status: not improved JOVANA AGUILAR Jul 09, 2016 14:01
[2016-07-09 16:00] VITALS: BP 118/57
[2016-07-09 19:56] VITALS: BP 123/54
--- NOTE | 2016-07-09 21:31 | Pulmonology Progress Note ---
Assessment/Plan Problems: (1) Acute encephalopathy (2) Hyperkalemia (3) COPD (chronic obstructive pulmonary disease) (4) Renal failure (5) LBBB (left bundle branch block) (6) ATN (acute tubular necrosis) (7) AICD (automatic cardioverter/defibrillator) present (8) Hemiparesis, right Assessment/Plan improving pt/ot monitor bp all notes reviewed check elctrolytes dc planning home Subjective ROS Limited/Unobtainable: No Constitutional: Reports: no symptoms HEENT: Repors: no symptoms Respiratory: Reports: no symptoms Allergies: Coded Allergies: No Known Allergies (Unverified , 03/12/15) Objective Last 24 Hour Vital Signs Date Time Temp Pulse Resp B/P Pulse Ox O2 Delivery O2 Flow Rate FiO2 07/09/16 19:56 98.1 80 19 123/54 96 Nasal Cannula 2.0 07/09/16 19:54 Nasal Cannula 2.0 07/09/16 19:54 94 Nasal Cannula 2.0 28 07/09/16 19:53 67 16 Nasal Cannula 2.0 07/09/16 16:00 98.7 73 20 118/57 96 Nasal Cannula 2.0 07/09/16 11:52 98.4 65 20 113/50 96 Room Air 07/09/16 08:09 97.0 89 19 118/58 96 Room Air 07/09/16 07:59 65 16 Room Air 07/09/16 04:00 97.8 77 19 115/45 97 Room Air 07/09/16 00:00 97.7 68 19 105/48 97 Room Air Intake and Output 07/08/16 07/09/16 19:00 07:00 Intake Total 480 ml 540 ml Output Total 600 ml 850 ml Balance -120 ml -310 ml Intake Oral 480 ml 540 ml Output Urine Total 600 ml 850 ml # Voids 1 # Bowel Movements 2 General Appearance: WD/WN HEENT: normocephalic Respiratory/Chest: chest wall non-tender, lungs clear Cardiovascular: normal peripheral pulses Abdomen: normal bowel sounds, soft, non tender Extremities: no cyanosis 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: peer counselor II-XII 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 Laboratory Tests 07/09/16 05:30: White Blood Count 9.9, Red Blood Count 3.91L, Hemoglobin 10.3L, Hematocrit 31.8L , Mean Corpuscular Volume 81, Mean Corpuscular Hemoglobin 26.4L, Mean Corpuscular Hemoglobin Concent 32.4, Red Cell Distribution Width 15.2H, Platelet Count 188, Mean Platelet Volume 7.9, Neutrophils (%) (Auto) 54.7, Lymphocytes (%) (Auto) 29.4, Monocytes (%) (Auto) 10.1H, Eosinophils (%) (Auto) 4.8H, Basophils (%) (Auto) 1.1, Sodium Level 142, Potassium Level 4.1, Chloride Level 104, Carbon Dioxide Level 20, Anion Gap 18H, Blood Urea Nitrogen 15, Creatinine 1.1H, Estimat Glomerular Filtration Rate 49.3, Glucose Level 129H, Calcium Level 9.2 Current Medications Medications (Trade) Dose Ordered Sig/[place] Route PRN Reason Start Time Stop Time Status Last Admin Dose Admin Acetaminophen (Tylenol) 650 mg Q4H PRN ORAL T>100.5 07/08/16 00:30 08/07/16 00:29 Albuterol/ Ipratropium (DuoNeb 0.5-3(2.5)mg/3ml) 3 ml Q6H PRN HHN dyspnea 07/08/16 01:00 07/13/16 00:59 Aspirin (Ecotrin) 81 mg DAILY ORAL 07/08/16 09:00 08/07/16 08:59 07/09/16 09:29 Atorvastatin Calcium (Lipitor) 10 mg BEDTIME ORAL 07/08/16 21:00 08/07/16 20:59 07/09/16 20:44 Dextrose (Dextrose 50%) STAT PRN IV Hypoglycemia 07/07/16 23:45 08/06/16 23:44 Heparin Sodium (Porcine) (Heparin 5000 units/ml) 5,000 units EVERY 12 HOURS SUBQ 07/08/16 09:00 08/07/16 08:59 07/09/16 20:44 Insulin Aspart (NovoLOG) BEFORE MEALS AND HS SUBQ 07/08/16 06:30 08/07/16 06:29 07/09/16 20:44 Morphine Sulfate (Morphine Sulfate) 1 mg Q4H PRN IVP PAIN 4-10 07/08/16 01:00 07/15/16 00:59 07/08/16 17:05 Ondansetron HCl (Zofran) 4 mg Q6H PRN IVP Nausea & Vomiting 07/08/16 00:30 08/07/16 00:29 Polyethylene Glycol (Miralax) 17 gm HSPRN PRN ORAL Constipation 07/08/16 21:00 08/07/16 20:59 Ranitidine HCl (Zantac) 150 mg BEDTIME ORAL 07/08/16 21:00 08/07/16 20:59 07/09/16 20:44 Sucralfate (Carafate) 1 gm AC+HS ORAL 07/08/16 06:30 08/07/16 06:29 07/08/16 17:05 Zolpidem Tartrate (Ambien) 5 mg HSPRN PRN ORAL Insomnia 07/08/16 21:00 08/07/16 20:59 ERVIN COHN Jul 09, 2016 21:31
--- NOTE | 2016-07-09 22:39 | Cardiac Electrophysiology PN ---
Assessment/Plan Assessment/Plan 1. Congestive heat failure. Start Lasix 40 mg intravenous daily, Coreg 3.125 mg b.i.d. and lisinopril 5 mg daily. 2. Status post biventricular Biotronik defibrillator implantation with normal function. 3. Hyperlipidemia, on Lipitor. MADISON RN Subjective Subjective The patient is a 71-year-old lady under my Cardiology care with history of severe cardiomyopathy with ejection fraction of 20%, who also underwent biventricular Biotronik defibrillator implantation by me. The patient also has hyperlipidemia and diabetes. The patient presented to [place] emergency room for three day history of nausea, vomiting, and diarrhea and being increasingly weak. The patient was found to have a potassium of 6.9. The patient was admitted for acute renal failure and hyperkalemia. Objective Last 24 Hour Vital Signs Date Time Temp Pulse Resp B/P Pulse Ox O2 Delivery O2 Flow Rate FiO2 07/09/16 19:56 98.1 80 19 123/54 96 Nasal Cannula 2.0 07/09/16 19:54 Nasal Cannula 2.0 28 07/09/16 19:54 94 Nasal Cannula 2.0 28 07/09/16 19:53 67 16 Nasal Cannula 2.0 28 07/09/16 16:00 98.7 73 20 118/57 96 Nasal Cannula 2.0 07/09/16 11:52 98.4 65 20 113/50 96 Room Air 07/09/16 08:09 97.0 89 19 118/58 96 Room Air 07/09/16 07:59 65 16 Room Air 07/09/16 04:00 97.8 77 19 115/45 97 Room Air 07/09/16 00:00 97.7 68 19 105/48 97 Room Air Intake and Output 07/08/16 07/09/16 19:00 07:00 Intake Total 480 ml 540 ml Output Total 600 ml 850 ml Balance -120 ml -310 ml Intake Oral 480 ml 540 ml Output Urine Total 600 ml 850 ml # Voids 1 # Bowel Movements 2 Laboratory Tests Test 07/09/16 05:30 White Blood Count 9.9 K/UL (4.8-10.8) Red Blood Count 3.91 M/UL (4.20-5.40) L Hemoglobin 10.3 G/DL (12.0-16.0) L Hematocrit 31.8 % (37.0-47.0) L Mean Corpuscular Volume 81 FL (80-99) Mean Corpuscular Hemoglobin 26.4 PG (27.0-31.0) L Mean Corpuscular Hemoglobin Concent 32.4 G/DL (32.0-36.0) Red Cell Distribution Width 15.2 % (11.6-14.8) H Platelet Count 188 K/UL (150-450) Mean Platelet Volume 7.9 FL (6.5-10.1) Neutrophils (%) (Auto) 54.7 % (45.0-75.0) Lymphocytes (%) (Auto) 29.4 % (20.0-45.0) Monocytes (%) (Auto) 10.1 % (1.0-10.0) H Eosinophils (%) (Auto) 4.8 % (0.0-3.0) H Basophils (%) (Auto) 1.1 % (0.0-2.0) Sodium Level 142 mEQ/L (135-145) Potassium Level 4.1 mEQ/L (3.4-4.9) Chloride Level 104 mEQ/L (98-107) Carbon Dioxide Level 20 mEQ/L (20-30) Anion Gap 18 (5-15) H Blood Urea Nitrogen 15 mg/dL (7-23) Creatinine 1.1 mg/dL (0.5-0.9) H Estimat Glomerular Filtration Rate 49.3 mL/min (>60) Glucose Level 129 mg/dL (74-106) H Calcium Level 9.2 mg/dL (8.6-10.2) Objective HEAD AND NECK: Shows no JVD. LUNGS: Clear CARDIOVASCULAR: Shows regular S1 and S2 with no gallop or murmur.ICD left subclavian intact. ABDOMEN: Soft. EXTREMITIES: No les DELORES CHAPARRO Jul 09, 2016 22:39
[2016-07-10 00:11] VITALS: BP 128/57
[2016-07-10 04:00] VITALS: BP 130/53
[2016-07-10] MEDS: Sucralfate 1gm tab ORAL SCH ×4 (06:11→20:34)
[2016-07-10] MEDS: NovoLOG Insulin Flexpen SUBQ SCH ×4 (06:13→22:12)
[2016-07-10 07:11] LABS: BASOPHILS % (AUTO) 0.9 % (0.0-2.0); EOSINOPHILS % (AUTO) 3.7 % (0.0-3.0); LYMPHOCYTES % (AUTO) 27.6 % (20.0-45.0); MEAN CORPUSCULAR HEMOGLOBIN 26.4 PG (27.0-31.0); MEAN CORPUSCULAR HGB CONC 32.5 G/DL (32.0-36.0); MEAN CORPUSCULAR VOLUME 81 FL (80-99); MEAN PLATELET VOLUME 8.3 FL (6.5-10.1); MONOCYTES % (AUTO) 9.1 % (1.0-10.0); NEUTROPHILS % (AUTO) 58.7 % (45.0-75.0); PLATELET COUNT 186 K/UL (150-450); RED BLOOD COUNT 3.85 M/UL (4.20-5.40); RED CELL DISTRIBUTION WIDTH 15.3 % (11.6-14.8); WHITE BLOOD COUNT 11.2 K/UL (4.8-10.8)
[2016-07-10 07:47] LABS: CALCIUM 9.4 mg/dL (8.6-10.2); CREATININE 1.1 mg/dL (0.5-0.9); GLOMERULAR FILTRATION RATE 49.3 mL/min (>60)
[2016-07-10 08:00] VITALS: BP 134/56
[2016-07-10] MEDS: Aspirin EC 81mg tab ORAL SCH (09:10)
[2016-07-10] MEDS: Lisinopril 2.5mg tab ORAL SCH (09:10)
[2016-07-10] MEDS: Heparin 5000 units/ml inj SUBQ SCH ×2 (09:12→22:06)
[2016-07-10 12:00] VITALS: BP 100/62
--- NOTE | 2016-07-10 13:20 | General Progress Note ---
Assessment/Plan Status: stable Assessment/Plan status; 1- Acute Renal Failure and HyperKalemia likely due to: - Hypotension and Shock- - Julio Inhibitors and excess diuretics 2- h/o Pacer and Cardiomyopathy- Plan: stop IV fluid- Monitor renal parameters- and serum K Avoid Nephrotoxics- Watch for CHF Sxs OK to med-surg and DC planning per orders Subjective ROS Limited/Unobtainable: No Constitutional: Reports: malaise Allergies: Coded Allergies: No Known Allergies (Unverified , 03/12/15) Objective Last 24 Hour Vital Signs Date Time Temp Pulse Resp B/P Pulse Ox O2 Delivery O2 Flow Rate FiO2 07/10/16 12:00 96.5 77 20 100/62 100 Room Air 07/10/16 09:51 64 134/56 07/10/16 09:10 134/56 07/10/16 08:00 98.2 64 20 134/56 98 Room Air 07/10/16 07:29 Room Air 07/10/16 07:28 99 Room Air 07/10/16 07:28 85 16 Room Air 07/10/16 04:00 97.0 60 20 130/53 98 Room Air 07/10/16 00:11 98.4 60 20 128/57 96 Room Air 07/09/16 19:56 98.1 80 19 123/54 96 Nasal Cannula 2.0 07/09/16 19:54 Nasal Cannula 2.0 07/09/16 19:54 94 Nasal Cannula 2.0 28 07/09/16 19:53 67 16 Nasal Cannula 2.0 07/09/16 16:00 98.7 73 20 118/57 96 Nasal Cannula 2.0 Intake and Output 07/09/16 07/10/16 19:00 07:00 Intake Total 240 ml 475 ml Output Total 350 ml 800 ml Balance -110 ml -325 ml Intake Oral 240 ml 475 ml Output Urine Total 350 ml 800 ml # Voids 1 Laboratory Tests 07/10/16 05:40: White Blood Count 11.2H, Red Blood Count 3.85L, Hemoglobin 10.2L, Hematocrit 31.3L, Mean Corpuscular Volume 81, Mean Corpuscular Hemoglobin 26.4L, Mean Corpuscular Hemoglobin Concent 32.5, Red Cell Distribution Width 15.3H, Platelet Count 186, Mean Platelet Volume 8.3, Neutrophils (%) (Auto) 58.7, Lymphocytes (%) (Auto) 27.6, Monocytes (%) (Auto) 9.1, Eosinophils (%) (Auto) 3.7H, Basophils (%) (Auto) 0.9, Sodium Level 144, Potassium Level 4.0, Chloride Level 105, Carbon Dioxide Level 25, Anion Gap 14, Blood Urea Nitrogen 17, Creatinine 1.1H, Estimat Glomerular Filtration Rate 49.3, Glucose Level 135H, Calcium Level 9.4, Pro-B-Type Natriuretic Peptide 4006H Height (Feet): 5 Height (Inches): 1.00 Weight (Pounds): 161 General Appearance: no apparent distress Objective other PE not changed VALERIO SOTO Jul 10, 2016 13:20
--- NOTE | 2016-07-10 14:02 | Internal Med Progress Note ---
Subjective Date of Service: Jul 10, 2016 Physician Name Jovana Aguilar Attending Physician Brendan Wright MD Current Medications Medications (Trade) Dose Ordered Sig/[place] Route PRN Reason Start Time Stop Time Status Last Admin Dose Admin Acetaminophen (Tylenol) 650 mg Q4H PRN ORAL T>100.5 07/08/16 00:30 08/07/16 00:29 Albuterol/ Ipratropium (DuoNeb 0.5-3(2.5)mg/3ml) 3 ml Q6H PRN HHN dyspnea 07/08/16 01:00 07/13/16 00:59 Aspirin (Ecotrin) 81 mg DAILY ORAL 07/08/16 09:00 08/07/16 08:59 07/10/16 09:10 Atorvastatin Calcium (Lipitor) 10 mg BEDTIME ORAL 07/08/16 21:00 08/07/16 20:59 07/09/16 20:44 Carvedilol (Coreg) 3.125 mg EVERY 12 HOURS ORAL 07/10/16 09:00 08/09/16 08:59 07/10/16 09:51 Dextrose (Dextrose 50%) STAT PRN IV Hypoglycemia 07/07/16 23:45 08/06/16 23:44 Furosemide (Lasix) 20 mg DAILY IV 07/10/16 09:00 08/09/16 08:59 07/10/16 09:10 Heparin Sodium (Porcine) (Heparin 5000 units/ml) 5,000 units EVERY 12 HOURS SUBQ 07/08/16 09:00 08/07/16 08:59 07/10/16 09:12 Insulin Aspart (NovoLOG) BEFORE MEALS AND HS SUBQ 07/08/16 06:30 08/07/16 06:29 07/10/16 11:46 Lisinopril (Zestril) 2.5 mg DAILY ORAL 07/10/16 09:00 08/09/16 08:59 07/10/16 09:10 Morphine Sulfate (Morphine Sulfate) 1 mg Q4H PRN IVP PAIN 4-10 07/08/16 01:00 07/15/16 00:59 07/08/16 17:05 Ondansetron HCl (Zofran) 4 mg Q6H PRN IVP Nausea & Vomiting 07/08/16 00:30 08/07/16 00:29 Polyethylene Glycol (Miralax) 17 gm HSPRN PRN ORAL Constipation 07/08/16 21:00 08/07/16 20:59 Ranitidine HCl (Zantac) 150 mg BEDTIME ORAL 07/08/16 21:00 08/07/16 20:59 07/09/16 20:44 Sucralfate (Carafate) 1 gm AC+HS ORAL 07/08/16 06:30 08/07/16 06:29 07/10/16 06:11 Zolpidem Tartrate (Ambien) 5 mg HSPRN PRN ORAL Insomnia 07/08/16 21:00 08/07/16 20:59 Allergies: Coded Allergies: No Known Allergies (Unverified , 03/12/15) ROS Limited/Unobtainable: No Constitutional: Reports: weakness HEENT: Reports: no symptoms Cardiovascular: Reports: no symptoms Respiratory: Reports: no symptoms Gastrointestinal/Abdominal: Reports: no symptoms Genitourinary: Reports: no symptoms 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: Reports: weakness Subjective 71 YO F admitted with generalized weakness. Now hyperkalemia and renal failure. Worsening Joes D heart failure. Cover for Int Med-Dr Wright. Objective Last Vital Signs Date Time Temp Pulse Resp B/P Pulse Ox O2 Delivery O2 Flow Rate FiO2 07/10/16 12:00 96.5 77 20 100/62 100 Room Air 07/09/16 19:56 2.0 07/09/16 19:54 28 Laboratory Tests Test 07/10/16 05:40 White Blood Count 11.2 K/UL (4.8-10.8) H Red Blood Count 3.85 M/UL (4.20-5.40) L Hemoglobin 10.2 G/DL (12.0-16.0) L Hematocrit 31.3 % (37.0-47.0) L Mean Corpuscular Volume 81 FL (80-99) Mean Corpuscular Hemoglobin 26.4 PG (27.0-31.0) L Mean Corpuscular Hemoglobin Concent 32.5 G/DL (32.0-36.0) Red Cell Distribution Width 15.3 % (11.6-14.8) H Platelet Count 186 K/UL (150-450) Mean Platelet Volume 8.3 FL (6.5-10.1) Neutrophils (%) (Auto) 58.7 % (45.0-75.0) Lymphocytes (%) (Auto) 27.6 % (20.0-45.0) Monocytes (%) (Auto) 9.1 % (1.0-10.0) Eosinophils (%) (Auto) 3.7 % (0.0-3.0) H Basophils (%) (Auto) 0.9 % (0.0-2.0) Sodium Level 144 mEQ/L (135-145) Potassium Level 4.0 mEQ/L (3.4-4.9) Chloride Level 105 mEQ/L (98-107) Carbon Dioxide Level 25 mEQ/L (20-30) Anion Gap 14 (5-15) Blood Urea Nitrogen 17 mg/dL (7-23) Creatinine 1.1 mg/dL (0.5-0.9) H Estimat Glomerular Filtration Rate 49.3 mL/min (>60) Glucose Level 135 mg/dL (74-106) H Calcium Level 9.4 mg/dL (8.6-10.2) Pro-B-Type Natriuretic Peptide 4006 pg/mL (0-125) H Intake and Output 07/09/16 07/10/16 19:00 07:00 Intake Total 240 ml 475 ml Output Total 350 ml 800 ml Balance -110 ml -325 ml Intake Oral 240 ml 475 ml Output Urine Total 350 ml 800 ml # Voids 1 Objective General Appearance: WD/WN, alert, mild distress EENT: PERRL/EOMI, normal ENT inspection, TMs normal Neck: non-tender, normal alignment, supple, normal inspection Cardiovascular: normal peripheral pulses, normal rate, regular rhythm, no gallop/murmur, no JVD Respiratory/Chest: Nasal canula; chest wall non-tender, lungs clear, normal breath sounds, no respiratory distress, no accessory muscle use Abdomen: normal bowel sounds, non tender, soft, no organomegaly, no mass Extremities: other - right hemiparesis 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 Secondary to shock (4) Hypotension (5) Hyperkalemia Assessment & Plan: Resolved; due to JAROCHO inhibitor and diuretics. S/P Kayexalate. See nephrology note. Patient now on lisinopril and lasix per cardiology (6) COPD (chronic obstructive pulmonary disease) Assessment & Plan: See pulmonary note. (7) Cardiomyopathy (8) Acute renal failure (ARF) Assessment & Plan: Improving. See nephrology note. (9) Diabetes mellitus (10) Hypertension Assessment & Plan: Hold JAROCHO inhibitor and diuretic per nephrology. (11) Generalized weakness (12) Cerebral vascular disease (13) Acute CHF Assessment & Plan: Await cardiology consult. Status: progressing JOVANA AGUILAR Jul 10, 2016 14:02
[2016-07-10 16:00] VITALS: BP 105/53
[2016-07-10 20:00] VITALS: BP 102/46
--- NOTE | 2016-07-10 21:47 | Pulmonology Progress Note ---
Assessment/Plan Problems: (1) Acute encephalopathy (2) Hyperkalemia (3) COPD (chronic obstructive pulmonary disease) (4) Renal failure (5) LBBB (left bundle branch block) (6) ATN (acute tubular necrosis) (7) AICD (automatic cardioverter/defibrillator) present (8) Hemiparesis, right Assessment/Plan no new complains improving pt/ot monitor bp all notes reviewed check elctrolytes dc planning home all labs reviwed Subjective ROS Limited/Unobtainable: No Constitutional: Reports: no symptoms HEENT: Repors: no symptoms Respiratory: Reports: no symptoms Allergies: Coded Allergies: No Known Allergies (Unverified , 03/12/15) Objective Last 24 Hour Vital Signs Date Time Temp Pulse Resp B/P Pulse Ox O2 Delivery O2 Flow Rate FiO2 07/10/16 20:34 61 102/46 07/10/16 20:00 98.2 61 20 102/46 99 Room Air 07/10/16 19:41 Room Air 07/10/16 19:41 97 Room Air 07/10/16 19:40 66 16 Room Air 07/10/16 16:00 99.0 65 18 105/53 93 Room Air 07/10/16 12:00 96.5 77 20 100/62 100 Room Air 07/10/16 09:51 64 134/56 07/10/16 09:10 134/56 07/10/16 08:00 98.2 64 20 134/56 98 Room Air 07/10/16 07:29 Room Air 07/10/16 07:28 99 Room Air 07/10/16 07:28 85 16 Room Air 07/10/16 04:00 97.0 60 20 130/53 98 Room Air 07/10/16 00:11 98.4 60 20 128/57 96 Room Air Intake and Output 07/09/16 07/10/16 19:00 07:00 Intake Total 240 ml 475 ml Output Total 350 ml 800 ml Balance -110 ml -325 ml Intake Oral 240 ml 475 ml Output Urine Total 350 ml 800 ml # Voids 1 General Appearance: WD/WN HEENT: normocephalic Respiratory/Chest: chest wall non-tender, lungs clear Cardiovascular: normal peripheral pulses Abdomen: normal bowel sounds, soft, non tender Extremities: no cyanosis Skin: no lesions 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 Laboratory Tests 07/10/16 05:40: White Blood Count 11.2H, Red Blood Count 3.85L, Hemoglobin 10.2L, Hematocrit 31.3L, Mean Corpuscular Volume 81, Mean Corpuscular Hemoglobin 26.4L, Mean Corpuscular Hemoglobin Concent 32.5, Red Cell Distribution Width 15.3H, Platelet Count 186, Mean Platelet Volume 8.3, Neutrophils (%) (Auto) 58.7, Lymphocytes (%) (Auto) 27.6, Monocytes (%) (Auto) 9.1, Eosinophils (%) (Auto) 3.7H, Basophils (%) (Auto) 0.9, Sodium Level 144, Potassium Level 4.0, Chloride Level 105, Carbon Dioxide Level 25, Anion Gap 14, Blood Urea Nitrogen 17, Creatinine 1.1H, Estimat Glomerular Filtration Rate 49.3, Glucose Level 135H, Calcium Level 9.4, Pro-B-Type Natriuretic Peptide 4006H Current Medications Medications (Trade) Dose Ordered Sig/[place] Route PRN Reason Start Time Stop Time Status Last Admin Dose Admin Acetaminophen (Tylenol) 650 mg Q4H PRN ORAL T>100.5 07/08/16 00:30 08/07/16 00:29 Albuterol/ Ipratropium (DuoNeb 0.5-3(2.5)mg/3ml) 3 ml Q6H PRN HHN dyspnea 07/08/16 01:00 07/13/16 00:59 Aspirin (Ecotrin) 81 mg DAILY ORAL 07/08/16 09:00 08/07/16 08:59 07/10/16 09:10 Atorvastatin Calcium (Lipitor) 10 mg BEDTIME ORAL 07/08/16 21:00 08/07/16 20:59 07/09/16 20:44 Carvedilol (Coreg) 3.125 mg EVERY 12 HOURS ORAL 07/10/16 09:00 08/09/16 08:59 07/10/16 09:51 Dextrose (Dextrose 50%) STAT PRN IV Hypoglycemia 07/07/16 23:45 08/06/16 23:44 Furosemide (Lasix) 20 mg DAILY IV 07/10/16 09:00 08/09/16 08:59 07/10/16 09:10 Heparin Sodium (Porcine) (Heparin 5000 units/ml) 5,000 units EVERY 12 HOURS SUBQ 07/08/16 09:00 08/07/16 08:59 07/10/16 09:12 Insulin Aspart (NovoLOG) BEFORE MEALS AND HS SUBQ 07/08/16 06:30 08/07/16 06:29 07/10/16 17:06 Lisinopril (Zestril) 2.5 mg DAILY ORAL 07/10/16 09:00 08/09/16 08:59 07/10/16 09:10 Morphine Sulfate (Morphine Sulfate) 1 mg Q4H PRN IVP PAIN 4-10 07/08/16 01:00 07/15/16 00:59 07/08/16 17:05 Ondansetron HCl (Zofran) 4 mg Q6H PRN IVP Nausea & Vomiting 07/08/16 00:30 08/07/16 00:29 Polyethylene Glycol (Miralax) 17 gm HSPRN PRN ORAL Constipation 07/08/16 21:00 08/07/16 20:59 Ranitidine HCl (Zantac) 150 mg BEDTIME ORAL 07/08/16 21:00 08/07/16 20:59 07/09/16 20:44 Sucralfate (Carafate) 1 gm AC+HS ORAL 07/08/16 06:30 08/07/16 06:29 07/10/16 06:11 Zolpidem Tartrate (Ambien) 5 mg HSPRN PRN ORAL Insomnia 07/08/16 21:00 08/07/16 20:59 ERVIN COHN Jul 10, 2016 21:47
[2016-07-11] VITALS: BP 95/55
[2016-07-11 04:00] VITALS: BP 100/45
[2016-07-11] MEDS: NovoLOG Insulin Flexpen SUBQ SCH ×3 (06:30→16:46)
[2016-07-11] MEDS: Sucralfate 1gm tab ORAL SCH ×3 (06:30→16:46)
[2016-07-11 06:56] LABS: BASOPHILS % (AUTO) 1.1 % (0.0-2.0); EOSINOPHILS % (AUTO) 4.5 % (0.0-3.0); LYMPHOCYTES % (AUTO) 29.3 % (20.0-45.0); MEAN CORPUSCULAR HEMOGLOBIN 26.6 PG (27.0-31.0); MEAN CORPUSCULAR HGB CONC 32.1 G/DL (32.0-36.0); MEAN CORPUSCULAR VOLUME 83 FL (80-99); MEAN PLATELET VOLUME 7.7 FL (6.5-10.1); MONOCYTES % (AUTO) 7.7 % (1.0-10.0); NEUTROPHILS % (AUTO) 57.4 % (45.0-75.0); PLATELET COUNT 186 K/UL (150-450); RED BLOOD COUNT 3.88 M/UL (4.20-5.40); RED CELL DISTRIBUTION WIDTH 14.9 % (11.6-14.8); WHITE BLOOD COUNT 11.8 K/UL (4.8-10.8)
[2016-07-11 08:00] VITALS: BP 110/46
[2016-07-11 08:10] LABS: CALCIUM 9.1 mg/dL (8.6-10.2); CREATININE 1.2 mg/dL (0.5-0.9); GLOMERULAR FILTRATION RATE 44.5 mL/min (>60); POTASSIUM 3.7 mEQ/L (3.4-4.9)
[2016-07-11] MEDS: Aspirin EC 81mg tab ORAL SCH (09:01)
[2016-07-11] MEDS: Lisinopril 2.5mg tab ORAL SCH (09:02)
[2016-07-11] MEDS: Heparin 5000 units/ml inj SUBQ SCH (09:03)
--- NOTE | 2016-07-11 11:31 | Internal Med Progress Note ---
Subjective Date of Service: Jul 11, 2016 Physician Name Jovana Aguilar Attending Physician Brendan Wright MD Current Medications Medications (Trade) Dose Ordered Sig/[place] Route PRN Reason Start Time Stop Time Status Last Admin Dose Admin Acetaminophen (Tylenol) 650 mg Q4H PRN ORAL T>100.5 07/08/16 00:30 08/07/16 00:29 Albuterol/ Ipratropium (DuoNeb 0.5-3(2.5)mg/3ml) 3 ml Q6H PRN HHN dyspnea 07/08/16 01:00 07/13/16 00:59 Aspirin (Ecotrin) 81 mg DAILY ORAL 07/08/16 09:00 08/07/16 08:59 07/11/16 09:01 Atorvastatin Calcium (Lipitor) 10 mg BEDTIME ORAL 07/08/16 21:00 08/07/16 20:59 07/10/16 22:03 Carvedilol (Coreg) 3.125 mg EVERY 12 HOURS ORAL 07/10/16 09:00 08/09/16 08:59 07/11/16 09:02 Dextrose (Dextrose 50%) STAT PRN IV Hypoglycemia 07/07/16 23:45 08/06/16 23:44 Furosemide (Lasix) 20 mg DAILY IV 07/10/16 09:00 08/09/16 08:59 07/11/16 09:02 Heparin Sodium (Porcine) (Heparin 5000 units/ml) 5,000 units EVERY 12 HOURS SUBQ 07/08/16 09:00 08/07/16 08:59 07/11/16 09:03 Insulin Aspart (NovoLOG) BEFORE MEALS AND HS SUBQ 07/08/16 06:30 08/07/16 06:29 07/10/16 22:12 Lisinopril (Zestril) 2.5 mg DAILY ORAL 07/10/16 09:00 08/09/16 08:59 07/11/16 09:02 Morphine Sulfate (Morphine Sulfate) 1 mg Q4H PRN IVP PAIN 4-10 07/08/16 01:00 07/15/16 00:59 07/08/16 17:05 Ondansetron HCl (Zofran) 4 mg Q6H PRN IVP Nausea & Vomiting 07/08/16 00:30 08/07/16 00:29 Polyethylene Glycol (Miralax) 17 gm HSPRN PRN ORAL Constipation 07/08/16 21:00 08/07/16 20:59 Ranitidine HCl (Zantac) 150 mg BEDTIME ORAL 07/08/16 21:00 08/07/16 20:59 07/10/16 22:03 Sucralfate (Carafate) 1 gm AC+HS ORAL 07/08/16 06:30 08/07/16 06:29 07/10/16 06:11 Zolpidem Tartrate (Ambien) 5 mg HSPRN PRN ORAL Insomnia 07/08/16 21:00 08/07/16 20:59 Allergies: Coded Allergies: No Known Allergies (Unverified , 03/12/15) ROS Limited/Unobtainable: No Constitutional: Reports: no symptoms HEENT: Reports: no symptoms Cardiovascular: Reports: no symptoms Respiratory: Reports: no symptoms Gastrointestinal/Abdominal: Reports: no symptoms Genitourinary: Reports: no symptoms 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: Reports: no symptoms Subjective 71 YO F admitted with generalized weakness. Now hyperkalemia and renal failure. Worsening Josed heart failure. Cover for Int Med-Dr Wright. Objective Last Vital Signs Date Time Temp Pulse Resp B/P Pulse Ox O2 Delivery O2 Flow Rate FiO2 07/11/16 09:02 110/46 07/11/16 09:02 63 07/11/16 08:01 16 Room Air 07/11/16 08:00 97 07/11/16 08:00 98.4 07/09/16 19:56 2.0 07/09/16 19:54 28 Laboratory Tests Test 07/11/16 05:05 White Blood Count 11.8 K/UL (4.8-10.8) H Red Blood Count 3.88 M/UL (4.20-5.40) L Hemoglobin 10.3 G/DL (12.0-16.0) L Hematocrit 32.2 % (37.0-47.0) L Mean Corpuscular Volume 83 FL (80-99) Mean Corpuscular Hemoglobin 26.6 PG (27.0-31.0) L Mean Corpuscular Hemoglobin Concent 32.1 G/DL (32.0-36.0) Red Cell Distribution Width 14.9 % (11.6-14.8) H Platelet Count 186 K/UL (150-450) Mean Platelet Volume 7.7 FL (6.5-10.1) Neutrophils (%) (Auto) 57.4 % (45.0-75.0) Lymphocytes (%) (Auto) 29.3 % (20.0-45.0) Monocytes (%) (Auto) 7.7 % (1.0-10.0) Eosinophils (%) (Auto) 4.5 % (0.0-3.0) H Basophils (%) (Auto) 1.1 % (0.0-2.0) Sodium Level 142 mEQ/L (135-145) Potassium Level 3.7 mEQ/L (3.4-4.9) Chloride Level 100 mEQ/L (98-107) Carbon Dioxide Level 22 mEQ/L (20-30) Anion Gap 20 (5-15) H Blood Urea Nitrogen 22 mg/dL (7-23) Creatinine 1.2 mg/dL (0.5-0.9) H Estimat Glomerular Filtration Rate 44.5 mL/min (>60) Glucose Level 102 mg/dL (74-106) Calcium Level 9.1 mg/dL (8.6-10.2) Intake and Output 07/10/16 07/11/16 19:00 07:00 Intake Total 240 ml 360 ml Output Total 1000 ml 725 ml Balance -760 ml -365 ml Intake Oral 240 ml 360 ml Output Urine Total 1000 ml 725 ml # Bowel Movements 1 Objective General Appearance: WD/WN, alert, mild distress EENT: PERRL/EOMI, normal ENT inspection, TMs normal Neck: non-tender, normal alignment, supple, normal inspection Cardiovascular: normal peripheral pulses, normal rate, regular rhythm, no gallop/murmur, no JVD Respiratory/Chest: Nasal canula; chest wall non-tender, lungs clear, normal breath sounds, no respiratory distress, no accessory muscle use Abdomen: normal bowel sounds, non tender, soft, no organomegaly, no mass Extremities: other - right hemiparesis 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 Secondary to shock (4) Hypotension (5) Hyperkalemia Assessment & Plan: Resolved; due to JAROCHO inhibitor and diuretics. S/P Kayexalate. See nephrology note. Patient now on lisinopril and lasix per cardiology (6) COPD (chronic obstructive pulmonary disease) Assessment & Plan: See pulmonary note. (7) Cardiomyopathy (8) Acute renal failure (ARF) Assessment & Plan: Improving. See nephrology note. (9) Diabetes mellitus (10) Hypertension Assessment & Plan: Hold JAROCHO inhibitor and diuretic per nephrology. (11) Generalized weakness (12) Cerebral vascular disease (13) Acute CHF Assessment & Plan: Await cardiology consult. Status: progressing Assessment/Plan Possible discharge home with home health-D/W case management JOVANA AGUILAR Jul 11, 2016 11:31
[2016-07-11] MEDS ORDERED: COREG3.125 MG ORAL (11:54)
[2016-07-11 12:00] VITALS: BP 122/48
--- NOTE | 2016-07-11 13:25 | General Progress Note ---
Assessment/Plan Status: stable Assessment/Plan status; 1- Acute Renal Failure and HyperKalemia likely due to: - Hypotension and Shock- - Julio Inhibitors and excess diuretics IMPROVED 2- h/o Pacer and Cardiomyopathy- Plan: stop IV fluid- Monitor renal parameters- and serum K Avoid Nephrotoxics- Watch for CHF Sxs OK to med-surg and DC planning per orders Subjective ROS Limited/Unobtainable: No Allergies: Coded Allergies: No Known Allergies (Unverified , 03/12/15) Objective Last 24 Hour Vital Signs Date Time Temp Pulse Resp B/P Pulse Ox O2 Delivery O2 Flow Rate FiO2 07/11/16 12:00 98.1 64 18 122/48 97 Room Air 07/11/16 09:02 110/46 07/11/16 09:02 63 110/46 07/11/16 08:01 63 16 Room Air 07/11/16 08:00 Room Air 07/11/16 08:00 97 Room Air 07/11/16 08:00 98.4 62 18 110/46 97 Room Air 07/11/16 04:00 98.2 68 18 100/45 96 Room Air 07/11/16 00:00 98.2 67 18 95/55 98 Room Air 07/10/16 20:34 61 102/46 07/10/16 20:00 98.2 61 20 102/46 99 Room Air 07/10/16 19:41 Room Air 07/10/16 19:41 97 Room Air 07/10/16 19:40 66 16 Room Air 07/10/16 16:00 99.0 65 18 105/53 93 Room Air Intake and Output 07/10/16 07/11/16 19:00 07:00 Intake Total 240 ml 360 ml Output Total 1000 ml 725 ml Balance -760 ml -365 ml Intake Oral 240 ml 360 ml Output Urine Total 1000 ml 725 ml # Bowel Movements 1 Laboratory Tests 07/11/16 05:05: White Blood Count 11.8H, Red Blood Count 3.88L, Hemoglobin 10.3L, Hematocrit 32.2L, Mean Corpuscular Volume 83, Mean Corpuscular Hemoglobin 26.6L, Mean Corpuscular Hemoglobin Concent 32.1, Red Cell Distribution Width 14.9H, Platelet Count 186, Mean Platelet Volume 7.7, Neutrophils (%) (Auto) 57.4, Lymphocytes (%) (Auto) 29.3, Monocytes (%) (Auto) 7.7, Eosinophils (%) (Auto) 4.5H, Basophils (%) (Auto) 1.1, Sodium Level 142, Potassium Level 3.7, Chloride Level 100, Carbon Dioxide Level 22, Anion Gap 20H, Blood Urea Nitrogen 22, Creatinine 1.2H, Estimat Glomerular Filtration Rate 44.5, Glucose Level 102, Calcium Level 9.1 Height (Feet): 5 Height (Inches): 1.00 Weight (Pounds): 161 General Appearance: no apparent distress Objective other PE not changed VALERIO SOTO Jul 11, 2016 13:25
[2016-07-11 16:07] VITALS: BP 101/40
--- NOTE | 2016-07-11 23:29 | Pulmonology Progress Note ---
Assessment/Plan Problems: (1) Acute encephalopathy (2) Hyperkalemia (3) COPD (chronic obstructive pulmonary disease) (4) Renal failure (5) LBBB (left bundle branch block) (6) ATN (acute tubular necrosis) (7) AICD (automatic cardioverter/defibrillator) present (8) Hemiparesis, right Assessment/Plan no new complains improving pt/ot monitor bp all notes reviewed check elctrolytes dc planning home for today all labs reviwed Subjective ROS Limited/Unobtainable: No Interval Events: feeling much better Allergies: Coded Allergies: No Known Allergies (Unverified , 03/12/15) Objective Last 24 Hour Vital Signs Date Time Temp Pulse Resp B/P Pulse Ox O2 Delivery O2 Flow Rate FiO2 07/11/16 16:07 97.3 62 19 101/40 97 Room Air 07/11/16 12:00 98.1 64 18 122/48 97 Room Air 07/11/16 09:02 110/46 07/11/16 09:02 63 110/46 07/11/16 08:01 63 16 Room Air 07/11/16 08:00 Room Air 07/11/16 08:00 97 Room Air 07/11/16 08:00 98.4 62 18 110/46 97 Room Air 07/11/16 04:00 98.2 68 18 100/45 96 Room Air 07/11/16 00:00 98.2 67 18 95/55 98 Room Air Intake and Output 07/10/16 07/11/16 19:00 07:00 Intake Total 240 ml 360 ml Output Total 1000 ml 725 ml Balance -760 ml -365 ml Intake Oral 240 ml 360 ml Output Urine Total 1000 ml 725 ml # Bowel Movements 1 General Appearance: WD/WN HEENT: normocephalic, atraumatic Respiratory/Chest: chest wall non-tender, lungs clear Cardiovascular: normal peripheral pulses, normal rate Abdomen: normal bowel sounds, soft, non tender Extremities: no cyanosis 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 Laboratory Tests 07/11/16 05:05: White Blood Count 11.8H, Red Blood Count 3.88L, Hemoglobin 10.3L, Hematocrit 32.2L, Mean Corpuscular Volume 83, Mean Corpuscular Hemoglobin 26.6L, Mean Corpuscular Hemoglobin Concent 32.1, Red Cell Distribution Width 14.9H, Platelet Count 186, Mean Platelet Volume 7.7, Neutrophils (%) (Auto) 57.4, Lymphocytes (%) (Auto) 29.3, Monocytes (%) (Auto) 7.7, Eosinophils (%) (Auto) 4.5H, Basophils (%) (Auto) 1.1, Sodium Level 142, Potassium Level 3.7, Chloride Level 100, Carbon Dioxide Level 22, Anion Gap 20H, Blood Urea Nitrogen 22, Creatinine 1.2H, Estimat Glomerular Filtration Rate 44.5, Glucose Level 102, Calcium Level 9.1 ERVIN COHN Jul 11, 2016 23:29
--- NOTE | 2016-07-12 14:34 | Discharge Summary ---
Discharge Summary Hospital Course Date of Admission Jul 04, 2016 at 23:59 Date of Discharge Jul 11, 2016 at 18:30 Admitting Diagnosis hyperkalemia HPI Amaya Harvey is a 71 year old female who was admitted on Jul 04, 2016 at 23:59 for Hyperkalemia Hospital Course dc summary dictated # [id number] Discharge Medications New Medications: Carvedilol (Coreg) 3.125 Mg Tablet 3.125 MG ORAL EVERY 12 HOURS for 30 Days, TAB Continued Medications: Aspirin Ec* (Aspirin Ec*) 81 Mg Tablet.dr 81 MG ORAL DAILY, TAB Atorvastatin Calcium* (Atorvastatin Calcium*) 20 Mg Tablet 10 MG ORAL BEDTIME, TAB Bisacodyl* (Dulcolax*) 5 Mg Tablet.dr 5 MG ORAL BID, TAB 0 Refills Carvedilol* (Carvedilol*) 3.125 Mg Tablet 3.125 MG ORAL EVERY 12 HOURS, TAB Esomeprazole Magnesium (Nexium) 40 Mg Capsule.dr 40 MG ORAL DAILY, CAP Furosemide* (Lasix*) 20 Mg Tablet 20 MG ORAL DAILY, TAB Insulin Aspart (Novolog Flexpen) 100 Units/Ml Pen 0 UNITS SUBQ BEFORE MEALS AND HS, #1 EA Insulin Glargine (Lantus) 100 Unit/1 Ml Insuln.pen 0 SUBQ BEDTIME, #1 EA 0 Refills Isosorbide Dinitrate* (Isordil*) 30 Mg Tablet 30 MG ORAL DAILY, TAB 0 Refills Lisinopril (Lisinopril*) 20 Mg Tablet 10 MG ORAL DAILY, TAB Loratadine (Loratadine) 10 Mg Tab.rapdis 10 MG PO DAILY, TAB Lorazepam* (Ativan*) 1 Mg Tablet 1 MG ORAL Q4H PRN for For Anxiety, #1 TAB Pantoprazole* (Protonix*) 40 Mg Tablet.dr 40 MG ORAL ACBREAKFAST, #1 TAB Pregabalin (Lyrica) 50 Mg Capsule 50 MG ORAL BID, CAP Sucralfate* (Carafate*) 1 Gm Tablet 1 GM ORAL AC+HS, #120 TAB Zolpidem Tartrate* (Ambien*) 5 Mg Tablet 5 MG ORAL DAILYPRN PRN for Insomnia, #1 TAB Discharge Condition Upon Discharge: stable Discharge Disposition Patient was discharged to Home with Home Health(06) Discharge Diagnoses: Discharge Instructions Discharge Instructions Special Instructions I have been assigned to complete a D/C Summary on this account. I was not involved in the patient management Sari Carmona NP ([facility]) Jul 12, 2016 14:34
--- NOTE | 2016-07-13 17:08 | Discharge Summary 2 SIG ---
DATE OF ADMISSION: 07/04/2016 DATE OF DISCHARGE: 07/11/2016 REASON FOR ADMISSION: 71-year-old female with history of coronary artery disease, AICD, cardiomyopathy came complaining of generalized weakness. She reported nausea, vomiting, and diarrhea for the last three days. She denied fevers, chills. Denied chest pain. Denied abdominal pain. No dysuria. No flank pain. The patient's with underlying medical problems including severe cardiomyopathy with last ejection fraction of 20% status post AICD, history of chronic obstructive pulmonary disease, diabetes, and hypertension. In emergency room, she presented with evidence of acute renal failure , hyponatremia and hyperkalemia. ProBNP was 1841. Troponin was negative. No leukocytosis. Mild anemia with hemoglobin of 10.3, hematocrit 32.2. Kayexalate was given. In lieu of cardiomyopathy, the patient started only on gentle IV hydration. Urinalysis indicated evidence of urinary tract infection, positive for pyuria and many bacteria as well as leukocyte esterase. The patient with evidence of hypotension and shock, the lowest blood pressure at that time was 97/44 and then 89/37. The patient started on empiric antibiotics after septic workup initiated and transferred to ICU for possible need for pressors. ADMITTING DIAGNOSIS: 1. Hyperkalemia. 2. Acute renal failure. 3. Hypotension. 4. Shock. 5. Urinary tract infection. 6. Cardiomyopathy. 7. Systolic heart failure. 8. Acute hyponatremia. 9. Diabetes mellitus with hyperglycemia. 10. History of cerebrovascular accident with right hemiparesis. 11. History of hypertension. 12. History of cervical cancer status post total hysterectomy. 13. Iron-deficiency anemia. 14. Complete left bundle-branch block, status post automatic implantable cardioverter-defibrillator placement. HOSPITAL COURSE: The patient was initially in intensive care unit, gentle IV hydration. The patient was closely monitored. No need for pressors. Cardiology followed along with Nephrology and Pulmonology/Critical Care. When cardiopulmonary status stabilized , the patient was transferred to telemetry. With gentle IV hydration, renal parameters improved. Hyperkalemia was treated and prior to discharge potassium was 3.7, sodium 142, BUN 22, creatinine 1.2. Electrical Subcontractor recommended to avoid nephrotoxic. Acute renal failure and hyperkalemia likely secondary to hypotension and shock precipitated likely by excess of diuretic as well as the JAROCHO inhibitor. Intravenous antibiotics provided. The patient with evidence of cardiomyopathy on prior echo ejection fraction was 20%. The patient has systolic heart failure, was on medical treatment with Lasix, beta-dayna, and JAROCHO inhibitor. No evidence of CHF exacerbation or decompensation. All antihypertensive initially were hold due to the hypotension. Cardiologists followed the patient. Blood pressure was stable. Supplemental oxygen and pulmonary toilet provided as needed. Chest x-ray was negative. Renal parameters normalized . The patient re-started on low-dose Lasix, beta- dayna, and JAROCHO inhibitor. The patient was discharged home on this regimen. May need further optimization of regimen. Follow up with primary medical doctor and senior gis analyst. Lipid panel stable. Continue current dose of statin. AICD was functioning normally. Anemia stable, at baseline. Blood sugar was managed with sliding scale of insulin and Levemir. Hemoglobin A1c- 9.7, not at goal. The patient likely will need further optimization of anti-glycemic regimen as outpatient. The patient cardiopulmonary status was stable . Patient was cleared by consultants for discharge to go home with home health. DISCHARGE DIAGNOSES: 1. Hyperkalemia. 2. Acute renal failure. 3. Hypotension with shock. 4. urinary tract infection/Escherichia coli. 5. Cardiomyopathy (ejection fraction 20%). 6. Systolic heart failure. 7. Acute hyponatremia. 8. Diabetes mellitus with hyperglycemia. 9. history of cerebrovascular accident with right hemiparesis. 10. Chronic obstructive pulmonary disease. 11. History of hypertension. 12. History of cervical cancer, status post total hysterectomy. 13. Iron-deficiency anemia, stable. 14. Complete left bundle branch block status post automatic implantable cardioverter-defibrillator, placement. 15. Hyperlipidemia. DISCHARGE MEDICATIONS: See medication reconciliation list. DISCHARGE INSTRUCTIONS: Discharge home with home health services, follow up with primary care provider. Brendan Wright M.D. I have been assigned to dictate discharge summary on this account and I was not involved in the patient's management. Sari Carmona ([facility] N.PAlyssa DR: Johan JOB#: [id number] CC: FERNANDO
--- NOTE | 2016-08-06 03:27 | Cardiology Report ---
APPROVED REPORT EKG Measurement Heart [id number] Sinus rhythm Demand ventricular pacemaker Abnormal ECG
--- NOTE | 2016-08-09 10:02 | Cardiology Report ---
APPROVED REPORT EXAM: Two-dimensional and M-mode echocardiogram with Doppler and color Doppler. INDICATION Left ventricular function. M-Mode DIMENSIONS IVSd1.3 (0.7-1.1cm)Left Atrium (MM)4.6 (1.6-4.0cm) LVDd5.7 (3.5-5.6cm)Aortic Root2.5 (2.0-3.7cm) PWd0.9 (0.7-1.1cm)Aortic Cusp Exc.1.5 (1.5-2.0cm) LVDs4.9 (2.5-4.0cm) PWs1.5 cm Technically difficult study due to poor acoustic windows. Mild left ventricular enlargement. Global left ventricular hypokinesis. Mid and basal anterior septum dyskinesis. Left ventricular ejection fraction estimated to be 40-45 %. No evidence of left ventricular hypertrophy. No evidence of pericardial fat or effusion. Right cardiac chamber sizes are within normal limits. Mild left atrial enlargement by 2D. Focal aortic valve sclerosis with adequate cusp excursion Mildly thickened mitral valve leaflets with normal excursion. Mitral annulus and aortic root calcification. Pulmonic valve not well visualized. Normal tricuspid valve structure. IVC is normal in size with physiologic collapse. Probable pacemaker wire present in the right side chambers. A color flow and spectral Doppler study was performed and revealed: Trace aortic regurgitation. Moderate mitral regurgitation. Left ventricular diastolic dysfunction grade 1. Mild tricuspid regurgitation. Tricuspid systolic velocities suggests peak right ventricular systolic pressure of 37 mmHg Consistent with mild pulmonary hypertension.
== END 2016-07-11 18:30 | disposition home health service (06) | DRG 682 ==
LOC: EMR 22:34 → ICU 23:59 → EDBEDREQTM 07-05 00:32 → EDBEDREQSVC 07-05 00:32 → EDBEDREQ 07-05 02:35 → 2E 07-06 14:31 → 4W 07-07 22:32
DX: N17.0 Acute kidney failure with tubular necrosis (principal); G93.40 Encephalopathy, unspecified; R57.9 Shock, unspecified; I95.9 Hypotension, unspecified; I42.9 Cardiomyopathy, unspecified; I50.20 Unspecified systolic (congestive) heart failure; J44.9 Chronic obstructive pulmonary disease, unspecified; I69.351 Hemiplegia and hemiparesis following cerebral infarction affecting right dominant side; E87.1 Hypo-osmolality and hyponatremia; N39.0 Urinary tract infection, site not specified; E87.5 Hyperkalemia; R73.9 Hyperglycemia, unspecified; Z85.41 Personal history of malignant neoplasm of cervix uteri; D50.9 Iron deficiency anemia, unspecified; I44.7 Left bundle-branch block, unspecified; Z95.810 Presence of automatic (implantable) cardiac defibrillator; Z79.4 Long term (current) use of insulin; E11.65 Type 2 diabetes mellitus with hyperglycemia; I10 Essential (primary) hypertension; B96.20 Unspecified Escherichia coli [E. coli] as the cause of diseases classified elsewhere
CPT/HCPCS: 36415; 71010; 80048; 80053; 80061; 80162; 81003; 82550; 82553; 82962; 82977; 83036; 83735; 83880; 84100; 84443; 84484; 84550; 85025; 85610; 85730; 86140; 87081; 87086; 87181; 93005; 93306; 94640; 94664; 94760; J1815; J2405

== ENCOUNTER 2016-10-11 08:33 | Inpatient (IN) | payer MEDICARE, OTHER ==
[2016-10-11] VITALS (7 sets, daily range): BP systolic 96–125; BP diastolic 40–68
[~2016-10-11] VITALS: Ht 154.9 cm; Wt 104.3 kg
[~2016-10-11 08:33] MED LIST changes: +COREG3.125 MG ORAL
[2016-10-11] MEDS ORDERED: Morphine Sulfate 4mg/ml Inj IVP ONE (08:45)
--- NOTE | 2016-10-11 08:45 | Emergency Room Report ---
History of Present Illness General Chief Complaint: Abdominal Pain Source: Patient, EMS Present Illness HPI The patient presents with abdominal pain. The pain is generalized according to the patient it's more in the right upper quadrant. Radiates somewhat to her back. It began at 1 AM. She denies any vomiting or diarrhea. She's been moving her bowels without any difficulty. She's had abdominal pain like this before. The patient has a history of pancreatitis, elevated alkaline phosphatase and UTI. She's been admitted for hyperkalemia and renal insufficiency in the past. The patient's diabetic, has hypertension and also 2 strokes with right-sided weakness. Allergies: Coded Allergies: No Known Allergies (Unverified , 03/12/15) Patient History Past Medical History: see triage record Past Surgical History: hysterectomy, pacemaker Social History: Denies: smoking Social History Narrative from home Reviewed Nursing Documentation: PMH: Agreed, PSxH: Agreed Nursing Documentation-PMH Past Medical History: No History, Except For Hx Cardiac Problems: Yes Hx Hypertension: Yes Hx Pacemaker: Yes - LEFT Hx COPD: Yes Hx Diabetes: Yes Hx Cancer: Yes - uterine and cervical Hx Gastrointestinal Problems: Yes Hx Neurological Problems: Yes Hx Cerebrovascular Accident: Yes Hx Dementia: No Hx Alzheimer's Disease: No Hx Parkinson's Disease: No Hx Meningitis: No Hx Epilepsy: No Hx Multiple Sclerosis: No Hx Cerebral Palsy: No Hx Amyotrophic Lat Sclerosis: No Hx Guillian-Treadwell Syndrome: No Hx Paralysis: Yes - right sided hemiplegia Hx Peripheral Neuropathy: Yes Hx Spinal Cord Injury: No Hx Head Trauma: No Hx Traumatic Brain Injury: No Hx Memory Loss: No Hx Concentration Difficulty: Yes Hx Speech Problem: No Hx Tremors: Yes Hx Vertigo: No Hx Dizziness: Yes Hx Syncope: No Hx Headaches: No Hx Aphasia: No Hx Dysphasia: No Hx Numbness: Yes Hx Weakness: Yes Hx Fatigue: No Hx Neurologic Surgery: No Hx Brain Shunt: No Review of Systems All Other Systems: negative except mentioned in HPI Physical Exam Vital Signs Date Time Temp Pulse Resp B/P Pulse Ox O2 Delivery O2 Flow Rate FiO2 10/11/16 08:29 97.9 96 20 155/87 100 Room Air Sp02 EP Interpretation: reviewed, normal General Appearance: well appearing, no apparent distress, GCS 15 Head: normocephalic Eyes: bilateral eye PERRL, bilateral eye conjunctivae pale ENT: moist mucus membranes Neck: supple Respiratory: chest non-tender, lungs clear, normal breath sounds Cardiovascular #1: regular rate, rhythm Cardiovascular #2: 2+ radial (R) Gastrointestinal: no rebound, abnormal bowel sounds, guarding, tenderness - more RUQ, overweight Musculoskeletal: back normal, swelling - R hand with weakness Neurologic: alert, sensory intact, motor weakness - R UE Psychiatric: depressed affect Skin: pallor Medical Decision Making Diagnostic Impression: Primary Impression: Acute renal failure (ARF) Qualified Codes: N17.9 - Acute kidney failure, unspecified Additional Impressions: Abdominal pain Qualified Codes: R10.84 - Generalized abdominal pain Hyperkalemia ER Course The patient presents with abdominal pain and pallor. Differential includes pancreatitis, peptic ulcer disease, gastritis, GI bleed, small bowel obstruction amongst others. Patient be evaluated with EKG, ultrasound, abdominal films and labs. In addition to that she'll be treated with IV hydration and analgesia. Labs significant for hyperkalemia and renal failure. Pain is improved with treatment. Not surgical abdomen. Antibiotics begun with elevated WBC. High potassium treated in ED. CT not ID source of pain. Admit tele Dr. Wright. Laboratory Tests Test 10/11/16 09:20 10/11/16 10:10 10/11/16 12:05 White Blood Count 12.3 K/UL (4.8-10.8) H Red Blood Count 4.38 M/UL (4.20-5.40) Hemoglobin 11.3 G/DL (12.0-16.0) L Hematocrit 35.6 % (37.0-47.0) L Mean Corpuscular Volume 81 FL (80-99) Mean Corpuscular Hemoglobin 25.9 PG (27.0-31.0) L Mean Corpuscular Hemoglobin Concent 31.8 G/DL (32.0-36.0) L Red Cell Distribution Width 13.5 % (11.6-14.8) Platelet Count 247 K/UL (150-450) Mean Platelet Volume 10.2 FL (6.5-10.1) H Neutrophils (%) (Auto) 70.5 % (45.0-75.0) Lymphocytes (%) (Auto) 16.4 % (20.0-45.0) L Monocytes (%) (Auto) 8.3 % (1.0-10.0) Eosinophils (%) (Auto) 3.9 % (0.0-3.0) H Basophils (%) (Auto) 1.0 % (0.0-2.0) Sodium Level 128 mEQ/L (135-145) L Potassium Level 5.9 mEQ/L (3.4-4.9) H Chloride Level 93 mEQ/L (98-107) L Carbon Dioxide Level 19 mEQ/L (20-30) L Anion Gap 16 (5-15) H Blood Urea Nitrogen 57 mg/dL (7-23) H Creatinine 2.4 mg/dL (0.5-0.9) H Estimate Glomerular Filtration Rate 20.0 mL/min (>60) Glucose Level 262 mg/dL (74-106) H Lactic Acid Level 1.60 mmol/L (0.66-2.22) Calcium Level 8.6 mg/dL (8.6-10.2) Total Bilirubin 0.4 mg/dL (0.0-1.2) Aspartate Amino Transferase (AST) 16 U/L (5-40) Alanine Aminotransferase (ALT) 9 U/L (3-33) Alkaline Phosphatase 140 U/L (35-104) H Troponin I < 0.30 ng/mL (<=0.30) Total Protein 7.5 g/dL (6.6-8.7) Albumin 3.3 g/dL (3.5-5.2) L Globulin 4.2 g/dL Albumin/Globulin Ratio 0.7 (1.0-2.7) L Lipase 52 U/L (< 60) Urine Color Pale yellow Urine Appearance Clear Urine pH 5 (4.5-8.0) Urine Specific [place] 1.015 (1.005-1.035) Urine Protein Negative (NEGATIVE) Urine Glucose (UA) Negative (NEGATIVE) Urine Ketones Negative (NEGATIVE) Urine Occult Blood Negative (NEGATIVE) Urine Nitrite Negative (NEGATIVE) Urine Bilirubin Negative (NEGATIVE) Urine Urobilinogen Normal MG/DL (0.0-1.0) Urine Leukocyte Esterase 2+ (NEGATIVE) H Urine RBC 0-2 /HPF (0 - 2) Urine WBC 2-4 /HPF (0 - 2) Urine Squamous Epithelial Cells Few /LPF (NONE/OCC) Urine Bacteria Occasional /HPF (NONE) Prothrombin Time 10.0 SEC (9.30-11.50) Prothrombin Time INR 1.0 (0.9-1.1) PTT 27 SEC (23-33) EKG Diagnostic Results Rate: normal Rhythm: other - paced ST Segments: no acute changes Rhythm Strip Diag. Results Rhythm: no PVC's, no ectopy, other - paced CT/MRI/US Diagnostic Results CT/MRI/US Diagnostic Results #1: Imaging Test Ordered: ultrasound Impression fatty liver CT/MRI/US Diagnostic Results #2: Imaging Test Ordered: ct abdomen Impression no significant pathology Impression: Tiny nonobstructive stone in the right kidney. Trace right pleural effusion and basilar atelectasis. Pacemaker Cardiomegaly and atherosclerotic vascular disease Small hiatal hernia. Diverticulosis of the colon Status post hysterectomy Smallwood catheter in good position Last Vital Signs Date Time Temp Pulse Resp B/P Pulse Ox O2 Delivery O2 Flow Rate FiO2 10/11/16 16:56 Nasal Cannula 3.0 32 10/11/16 16:56 98 10/11/16 16:30 97.0 70 20 115/68 Status: improved Disposition: ADMITTED INPATIENT Condition: Serious Jose Luis Fernandes M.D. October 11, 2016 08:44
[2016-10-11] MEDS ORDERED: CLOPIDOGREL75 MG ORAL (08:53)
[2016-10-11] MEDS ORDERED: TYLENOL EXTRA500 MG ORAL (08:53)
[2016-10-11] MEDS ORDERED: MI-ACID80 MG PO (08:53)
[2016-10-11] MEDS ORDERED: OMEPRAZOLE20 M2 ORAL (08:53)
[2016-10-11] MEDS ORDERED: Tubing IV Cassette IV ONE (09:07)
[2016-10-11 09:41] LABS: EOSINOPHILS % (AUTO) 3.9 % (0.0-3.0); LYMPHOCYTES % (AUTO) 16.4 % (20.0-45.0); MEAN CORPUSCULAR HEMOGLOBIN 25.9 PG (27.0-31.0); MEAN CORPUSCULAR HGB CONC 31.8 G/DL (32.0-36.0); MEAN CORPUSCULAR VOLUME 81 FL (80-99); MEAN PLATELET VOLUME 10.2 FL (6.5-10.1); MONOCYTES % (AUTO) 8.3 % (1.0-10.0); NEUTROPHILS % (AUTO) 70.5 % (45.0-75.0); PLATELET COUNT 247 K/UL (150-450); RED BLOOD COUNT 4.38 M/UL (4.20-5.40); RED CELL DISTRIBUTION WIDTH 13.5 % (11.6-14.8); WHITE BLOOD COUNT 12.3 K/UL (4.8-10.8)
[2016-10-11 09:50] LABS: TROPONIN I < 0.30 ng/mL (<=0.30)
[2016-10-11 09:52] LABS: ALBUMIN/GLOBULIN RATIO 0.7 (1.0-2.7); CALCIUM 8.6 mg/dL (8.6-10.2); CREATININE 2.4 mg/dL (0.5-0.9); POTASSIUM 5.9 mEQ/L (3.4-4.9); TOTAL PROTEIN 7.5 g/dL (6.6-8.7)
[2016-10-11] MEDS ORDERED: Lidocaine 1% Plain 30 ml INJ ONE (10:15)
[2016-10-11] MEDS ORDERED: Heparin 2000 units/Ns 1000ml IV ONE (10:15)
[2016-10-11] MEDS ORDERED: Sodium Bicarbonate 8.4% 50ml Carp IV ONE ×2 (10:15→11:00)
[2016-10-11 10:35] LABS: APPEARANCE,URINE CLEAR; KETONES,URINE NEGATIVE (NEGATIVE); LEUKOCYTE ESTERASE ,URINE 2+ (NEGATIVE); NITRITE,URINE NEGATIVE (NEGATIVE); PH,URINE 5 (4.5-8.0); PROTEIN,URINE NEGATIVE (NEGATIVE); UROBILINOGEN,URINE NORMAL MG/DL (0.0-1.0)
[2016-10-11 10:47] LABS: BACTERIA,URINE OCCASIONAL /HPF; RBC,URINE 0-2 /HPF (0 - 2); SQUAMOUS EPITHELIAL CELL,UR FEW /LPF (NONE/OCC)
[2016-10-11] MEDS ORDERED: Piperacillin/Tazobactam 3.375 GM in NS 110 ML IVPB ONE (11:00)
[2016-10-11] MEDS ORDERED: metroNIDAZOLE 500mg 100 ML IVPB ONE (11:00)
[2016-10-11] MEDS ORDERED: Calcium Gluconate 1gm/10ml vial IVP ONE (11:00)
[2016-10-11] MEDS ORDERED: Sodium Polystyrene Sulfonate 15gm Powder RECTAL ONE (11:00)
[2016-10-11] MEDS ORDERED: Zosyn 3.375gm inj ONE (12:15)
--- NOTE | 2016-10-11 12:46 | Diagnostic Imaging Report ---
Indication: Abdominal pain Technique: Continuous helical transaxial imaging of the abdomen and pelvis was obtained from the lung bases to the pubic symphysis. No intravenous contrast was administered. Coronal 2-D reformats were also obtained. Total Dose length Product (DLP): [address] Dose Index Volume (CTDIvol): 17 mGy Comparison: 02/08/16 Findings: There are is a punctate calcific focus in the central part of the right kidney probably a small nonobstructive stone. There is no hydronephrosis. Gallbladder is unremarkable. Trace right pleural effusion is noted. Cardiomegaly, pacemaker, hiatal hernia noted. Mild arterial vascular calcifications are present. Appendix is not definitely seen. There are diverticula noted within the colon without definite evidence of acute diverticulitis. Smallwood catheter is noted. The uterus is absent. There is no free fluid or free air. Impression: Tiny nonobstructive stone in the right kidney. Trace right pleural effusion and basilar atelectasis. Pacemaker Cardiomegaly and atherosclerotic vascular disease Small hiatal hernia. Diverticulosis of the colon Status post hysterectomy Smallwood catheter in good position The CT scanner at [facility] is accredited by the [employer] and the scans are performed using protocols designed to limit radiation exposure to as low as reasonably achievable to attain images of sufficient resolution adequate for diagnostic evaluation.
[2016-10-11] MEDS ORDERED: Miralax 17gm pkt ORAL PRN (14:45)
[2016-10-11] MEDS ORDERED: Nitroglycerin Subl 0.4mg tab (Bottle Of 25) SL PRN (14:45)
[2016-10-11] MEDS ORDERED: Mylanta II UD 30ml ORAL PRN (14:45)
[2016-10-11] MEDS ORDERED: Morphine Sulfate 2mg/ml Inj IVP PRN (14:45)
--- NOTE | 2016-10-11 15:01 | Diagnostic Imaging Report ---
Indication:Abdominal pain Technique: Grayscale and duplex Doppler imaging of the abdomen performed. Comparison: None Findings: The liver is echogenic and measures about 20 cm. No focal lesions are identified within the liver. The demonstrated part of the pancreas, gallbladder, aorta and IVC, both kidneys, spleen appear unremarkable. Some limitation due to bowel gas noted. There is no biliary ductal dilatation identified. CBD is 6 mm. Doppler evaluation of the main portal vein shows patency. There is no ascites. No hydronephrosis seen. Impression: Hepatomegaly with fatty infiltration.
--- NOTE | 2016-10-11 16:05 | Consultation ---
History of Present Illness General Date patient seen: October 11, 2016 Chief Complaint: Abdominal Pain Referring physician: Dr. Li Reason for Consultation: inpatinet management Present Illness HPI 71 year old female with multiple medical problems including DM, HTn, cva, Renal insufficiency, morbid obesity presented to [facility] ER with CC of abdominal pain. The pain is generalized according to the patient it's more in the right upper quadrant. She denies any vomiting or diarrhea. She was diagnosed to have acute renal failure and admitted to telemetry for further work up. Allergies: Coded Allergies: No Known Allergies (Unverified , 03/12/15) Medication History Scheduled Aspirin Ec* (Aspirin Ec*), 81 MG ORAL DAILY, (Reported) Atorvastatin Calcium* (Atorvastatin Calcium*), 40 MG ORAL BEDTIME, (Reported) Carvedilol (Coreg), 3.125 MG ORAL EVERY 12 HOURS Clopidogrel* (Clopidogrel*), 75 MG ORAL DAILY, (Reported) Esomeprazole Magnesium (Nexium), 40 MG ORAL DAILY, (Reported) Furosemide* (Lasix*), 20 MG ORAL DAILY, (Reported) Insulin Aspart (Novolog Flexpen), 0 UNITS SUBQ BEFORE MEALS AND HS Insulin Glargine (Lantus), 0 SUBQ BEDTIME, (Reported) Isosorbide Dinitrate* (Isordil*), 30 MG ORAL DAILY, (Reported) Lisinopril (Lisinopril*), 5 MG ORAL DAILY, (Reported) Loratadine (Loratadine), 10 MG PO DAILY, (Reported) Omeprazole (Omeprazole), 20 MG ORAL DAILY, (Reported) Pregabalin (Lyrica), 50 MG ORAL BID, (Reported) Scheduled PRN Acetaminophen* (Tylenol Extra Strength*), 500 MG ORAL Q6H PRN for Mild Pain/ Temp > 100.5, (Reported) Miscellaneous Medications Simethicone (Mi-Acid), 80 MG PO, (Reported) Discontinued Medications Bisacodyl* (Dulcolax*), 5 MG ORAL BID, (Reported) Discontinued Reason: Therapy completed Carvedilol* (Carvedilol*), 3.125 MG ORAL EVERY 12 HOURS, (Reported) Discontinued Reason: Therapy completed Lorazepam* (Ativan*), 1 MG ORAL Q4H PRN for For Anxiety Discontinued Reason: Therapy completed Pantoprazole* (Protonix*), 40 MG ORAL ACBREAKFAST Discontinued Reason: Therapy completed Sucralfate* (Carafate*), 1 GM ORAL AC+HS, (Reported) Discontinued Reason: Therapy completed Zolpidem Tartrate* (Ambien*), 5 MG ORAL DAILYPRN PRN for Insomnia Discontinued Reason: Therapy completed Patient History Healthcare decision maker Resuscitation status Full Code Advanced Directive on File Past Medical/Surgical History Past Medical/Surgical History: (1) Obesity (2) Peripheral vascular disease (3) Pancreatitis (4) Anemia (5) Sacral decubitus ulcer (6) HTN (hypertension) (7) Renal failure (8) Diabetes mellitus Review of Systems All Other Systems: negative except mentioned in HPI Physical Exam General Appearance: WD/WN, no apparent distress Lines, tubes and drains: peripheral HEENT: normocephalic, atraumatic Neck: non-tender, normal alignment Respiratory/Chest: chest wall non-tender, lungs clear, normal breath sounds Cardiovascular/Chest: normal peripheral pulses, normal rate Abdomen: normal bowel sounds, non tender Genitourinary/Rectal: normal genital exam, normal rectal exam Extremities: normal range of motion, non-tender Skin Exam: normal pigmentation 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 Last 24 Hour Vital Signs Date Time Temp Pulse Resp B/P Pulse Ox O2 Delivery O2 Flow Rate FiO2 10/11/16 14:26 96.8 72 20 114/63 100 Nasal Cannula 3.0 10/11/16 14:19 72 13 96/57 100 Nasal Cannula 2.0 10/11/16 13:48 97.0 72 13 96/57 100 Nasal Cannula 2.0 10/11/16 12:53 74 18 111/40 100 Nasal Cannula 2.0 10/11/16 11:14 97.7 73 16 103/49 100 Nasal Cannula 2.0 10/11/16 10:00 76 18 125/59 96 Nasal Cannula 2.0 10/11/16 09:45 97.8 10/11/16 08:29 97.9 96 20 155/87 100 Room Air Laboratory Tests Test 10/11/16 09:20 10/11/16 10:10 10/11/16 12:05 White Blood Count 12.3 K/UL (4.8-10.8) H Red Blood Count 4.38 M/UL (4.20-5.40) Hemoglobin 11.3 G/DL (12.0-16.0) L Hematocrit 35.6 % (37.0-47.0) L Mean Corpuscular Volume 81 FL (80-99) Mean Corpuscular Hemoglobin 25.9 PG (27.0-31.0) L Mean Corpuscular Hemoglobin Concent 31.8 G/DL (32.0-36.0) L Red Cell Distribution Width 13.5 % (11.6-14.8) Platelet Count 247 K/UL (150-450) Mean Platelet Volume 10.2 FL (6.5-10.1) H Neutrophils (%) (Auto) 70.5 % (45.0-75.0) Lymphocytes (%) (Auto) 16.4 % (20.0-45.0) L Monocytes (%) (Auto) 8.3 % (1.0-10.0) Eosinophils (%) (Auto) 3.9 % (0.0-3.0) H Basophils (%) (Auto) 1.0 % (0.0-2.0) Sodium Level 128 mEQ/L (135-145) L Potassium Level 5.9 mEQ/L (3.4-4.9) H Chloride Level 93 mEQ/L (98-107) L Carbon Dioxide Level 19 mEQ/L (20-30) L Anion Gap 16 (5-15) H Blood Urea Nitrogen 57 mg/dL (7-23) H Creatinine 2.4 mg/dL (0.5-0.9) H Estimat Glomerular Filtration Rate 20.0 mL/min (>60) Glucose Level 262 mg/dL (74-106) H Lactic Acid Level 1.60 mmol/L (0.66-2.22) Calcium Level 8.6 mg/dL (8.6-10.2) Total Bilirubin 0.4 mg/dL (0.0-1.2) Aspartate Amino Transf (AST/SGOT) 16 U/L (5-40) Alanine Aminotransferase (ALT/SGPT) 9 U/L (3-33) Alkaline Phosphatase 140 U/L (35-104) H Troponin I < 0.30 ng/mL (<=0.30) Total Protein 7.5 g/dL (6.6-8.7) Albumin 3.3 g/dL (3.5-5.2) L Globulin 4.2 g/dL Albumin/Globulin Ratio 0.7 (1.0-2.7) L Lipase 52 U/L (< 60) Urine Color Pale yellow Urine Appearance Clear Urine pH 5 (4.5-8.0) Urine Specific [place] 1.015 (1.005-1.035) Urine Protein Negative (NEGATIVE) Urine Glucose (UA) Negative (NEGATIVE) Urine Ketones Negative (NEGATIVE) Urine Occult Blood Negative (NEGATIVE) Urine Nitrite Negative (NEGATIVE) Urine Bilirubin Negative (NEGATIVE) Urine Urobilinogen Normal MG/DL (0.0-1.0) Urine Leukocyte Esterase 2+ (NEGATIVE) H Urine RBC 0-2 /HPF (0 - 2) Urine WBC 2-4 /HPF (0 - 2) Urine Squamous Epithelial Cells Few /LPF (NONE/OCC) Urine Bacteria Occasional /HPF (NONE) Prothrombin Time 10.0 SEC (9.30-11.50) Prothromb Time International Ratio 1.0 (0.9-1.1) Activated Partial Thromboplast Time 27 SEC (23-33) Height (Feet): 5 Height (Inches): 1.00 Weight (Pounds): 230 Medications Current Medications Medications (Trade) Dose Ordered Sig/[place] Route PRN Reason Start Time Stop Time Status Last Admin Dose Admin Acetaminophen (Tylenol) 650 mg Q4H PRN ORAL fever 10/11/16 14:45 11/10/16 14:44 Al Hydroxide/Mg Hydroxide (Mylanta II) 30 ml Q6H PRN ORAL dyspepsia 10/11/16 14:45 11/10/16 14:44 Atorvastatin Calcium (Lipitor) 40 mg BEDTIME ORAL 10/11/16 21:00 11/10/16 20:59 Carvedilol (Coreg) 3.125 mg EVERY 12 HOURS ORAL 10/11/16 21:00 11/10/16 20:59 Clopidogrel Bisulfate (Plavix) 75 mg DAILY ORAL 10/12/16 09:00 11/11/16 08:59 Dextrose (Dextrose 50%) STAT PRN IV Hypoglycemia 10/11/16 14:45 11/10/16 14:44 Diphenhydramine HCl (Benadryl) 25 mg Q6H PRN ORAL Itching/Pruritis 10/11/16 14:45 11/10/16 14:44 Heparin Sodium (Porcine) (Heparin 5000 units/ml) 5,000 units EVERY 12 HOURS SUBQ 10/11/16 21:00 11/10/16 20:59 Insulin Aspart (NovoLOG) BEFORE MEALS AND HS SUBQ 10/11/16 16:30 11/10/16 16:29 Morphine Sulfate (Morphine Sulfate) 2 mg Q4H PRN IVP severe Pain (Pain Scale 7-10) 10/11/16 14:45 10/18/16 14:44 Nitroglycerin 0.4 mg 0.4 mg Q5M X 3 DOSES PRN SL Prn Chest Pain 10/11/16 14:45 11/10/16 14:44 Ondansetron HCl (Zofran) 4 mg Q6H PRN IVP Nausea & Vomiting 10/11/16 14:45 11/10/16 14:44 Polyethylene Glycol (Miralax) 17 gm HSPRN PRN ORAL Constipation 10/11/16 14:45 11/10/16 14:44 Pregabalin (Lyrica) 50 mg BID ORAL 10/11/16 18:00 11/10/16 17:59 Sodium Chloride (Sodium Chloride 1000ml bag) 1,000 ml @ 150 mls/hr Q6H40M IV 10/11/16 15:45 11/10/16 15:44 Temazepam (Restoril) 15 mg HSPRN PRN ORAL Insomnia 10/11/16 14:45 10/18/16 14:44 Assessment/Plan Problem List: (1) Hyperkalemia ICD Codes: E87.5 - Hyperkalemia SNOMED: 55829479 (2) Renal failure ICD Codes: N19 - Unspecified kidney failure SNOMED: 23810818 (3) Diabetes mellitus ICD Codes: E11.9 - Type 2 diabetes mellitus without complications SNOMED: 36618971 (4) Hemiparesis, right ICD Codes: G81.91 - Hemiplegia, unspecified affecting right dominant side SNOMED: 121502327 Assessment/Plan IV fluids kayexalate renal us renal electroltyes dvt prophylaxis NPO GI evaluation ERVIN COHN October 11, 2016 16:05
--- NOTE | 2016-10-11 16:29 | Consultation ---
Consult Note Consult Note asked to eval for renal failure Chief Complaint: Abdominal Pain The patient presents with abdominal pain. CMS is generalized according to the patient it's more in the right upper quadrant. Radiates somewhat to her back. It began at 1 AM. She denies any vomiting or diarrhea. She's been moving her bowels without any difficulty. She's had abdominal pain like this before. The patient has a history of pancreatitis, elevated alkaline phosphatase and UTI. She's been admitted for hyperkalemia and renal insufficiency in the past. The patient's diabetic, has hypertension and also 2 strokes with right-sided weakness. from home Reviewed Nursing Documentation: PMH: Agreed, PSxH: Agreed Past Medical History: No History, Except For Hx Cardiac Problems: Yes Hx Hypertension: Yes Hx Pacemaker: Yes - LEFT Hx COPD: Yes Hx Diabetes: Yes Hx Cancer: Yes - uterine and cervical Hx Gastrointestinal Problems: Yes Hx Neurological Problems: Yes Hx Cerebrovascular Accident: Yes Hx Paralysis: Yes - right sided hemiplegia Hx Peripheral Neuropathy: Yes Hx Concentration Difficulty: Yes Hx Tremors: Yes Hx Dizziness: Yes Hx Numbness: Yes Hx Weakness: Yes Seen in Jun 2016 Acute Renal Failure and HyperKalemia likely due to: - Hypotension and Shock- - Julio Inhibitors and excess diuretics IMPROVED patient interviewed, examined, data reviewed Assessment/Plan status: acute renal failure : Diuretics- Julio inhibitors HyperKalemia Anemia CardioMyopathy- Pacer Obesity Slow hydrate arrington monitor I&O gastric support Avoid Nephrotoxics Anemia mcclellan per orders VALERIO SOTO October 11, 2016 16:29
[2016-10-11] MEDS ORDERED: metroNIDAZOLE 500mg tab ORAL ONE (16:30)
[2016-10-11] MEDS: NovoLOG Insulin Flexpen SUBQ SCH ×2 (16:30→21:00)
[2016-10-11] MEDS: Lyrica 50mg cap ORAL SCH (17:11)
--- NOTE | 2016-10-11 17:11 | History & Physical ---
History and Physical History & Physicial Dictated for Int Med-Dr Wright no. [id number]. JOVANA AGUILAR October 11, 2016 17:11
[2016-10-11] MEDS: Heparin 5000 units/ml inj SUBQ SCH (22:01)
--- NOTE | 2016-10-11 23:38 | History and Physical Report ---
DATE OF ADMISSION: 10/11/2016 CHIEF COMPLAINT: The patient is a 71-year-old female, presents with chief complaint of abdominal pain. HISTORY OF PRESENT ILLNESS: The patient was admitted to [facility] in June 2016. Please see history and physical and discharge summary dictated at that time. The patient states she began to experience epigastric pain this morning around 1 a.m. Pain radiates to the left upper quadrant. The patient denies nausea, vomiting, diarrhea, or constipation. The patient presented to [facility] emergency room. The patient is admitted for abdominal pain. PAST MEDICAL HISTORY: Significant for 1. Chronic obstructive pulmonary disease. 2. Congestive heart failure. 3. Cardiomyopathy. 4. Diabetes type 2. 5. Hypertension. 6. History of cerebrovascular accident. 7. Right hemiparesis. 8. Cervical cancer status post total abdominal hysterectomy. 9. Iron deficiency anemia. 10. Complete left bundle-branch block, status post AICD placement. PAST SURGICAL HISTORY: Significant for 1. Total abdominal hysterectomy. 2. Appendectomy. 3. AICD placement in November 2015. MEDICATIONS: Current medications 1. Aspirin 81 mg one tablet p.o. daily. 2. Atorvastatin 40 mg one tablet p.o. at bedtime. 3. Carvedilol 3.125 mg p.o. twice daily. 4. Clopidogrel 75 mg one tablet p.o. daily. 5. Nexium 40 mg one tablet p.o. daily. 6. Lasix 20 mg one tablet p.o. daily. 7. Lantus insulin of an unknown dose at bedtime. 8. Isosorbide dinitrate 30 mg one tablet p.o. daily. 9. Lisinopril 20 mg one tablet p.o. daily. 10. Claritin 10 mg one tablet p.o. daily. 11. Omeprazole 20 mg one tablet p.o. daily. 12. Lyrica 50 mg one tablet p.o. twice daily. ALLERGIES: No known drug allergies. SOCIAL HISTORY: The patient is single and lives with her adult son. The patient denies tobacco or alcohol use. REVIEW OF SYSTEMS: Constitutional: The patient denies weight loss or weight gain. The patient denies fever or chills. HEENT: The patient denies ear or throat pain. Cardiovascular: The patient denies palpitations or chest pain. Chest: The patient denies wheeze or shortness of breath. Abdomen: The patient complains of epigastric pain as above. The patient complains of radiation of pain to the left upper quadrant. The patient denies nausea, vomiting or constipation. Genitourinary: The patient denies dysuria or increased frequency of urination. Neuromuscular: The patient denies seizures or generalized weakness. PHYSICAL EXAMINATION: GENERAL: The patient is well developed and well nourished female, no apparent distress. VITAL SIGNS: Temperature 97.7 degrees, respirations 16, pulse 73, and blood pressure 103/49. HEENT: Eyes, pupils are equal and responsive to light and accommodation. Extraocular movements are intact. NECK: Supple without lymphadenopathy. CHEST: Lungs are clear to auscultation bilaterally without wheezes or rales. CARDIOVASCULAR: Regular rhythm and rate. S1 and S2. No murmurs, rubs, or gallops. ABDOMEN: Soft and tender to palpation epigastric to left upper quadrant with positive bowel sounds. No evidence of hepatosplenomegaly. Currently, no rebound or guarding noted. EXTREMITIES: Negative for clubbing, cyanosis, or edema. RECTAL/GENITAL: Refused. NEUROLOGIC: Cranial nerves II through XII are grossly intact without focal deficits. Motor strength is 5/5 bilaterally. Deep tendon reflexes 2+ bilaterally. LABORATORY AND DIAGNOSTIC DATA: WBC 12.3, hemoglobin 11.3, hematocrit 35.6, and platelets 247,000. Sodium 128, potassium 5.9, chloride 93, CO2 19, BUN elevated at 57, creatinine elevated at 2.4, and glucose elevated at 262. Troponin less than 0.3. Urinalysis showed 2+ leukocyte esterase with 2-4 WBCs. ASSESSMENT: This is a 71-year-old female 1. Epigastric pain. 2. Acute renal failure. 3. Chronic obstructive pulmonary disease. 4. Cardiomyopathy. 5. Diabetes type 2. 6. Hypertension. 7. History of cerebrovascular disease. 8. Right hemiparesis. 9. History of cervical cancer. 10. History iron deficiency anemia. 11. Complete left bundle-branch block. TREATMENT: 1. Epigastric pain. Epigastric pain radiates to the left upper quadrant. An initial CT scan in the emergency room revealed a right renal calculus and diverticulosis, otherwise within normal limits. An ultrasound of the abdomen revealed hepatomegaly. A Gastroenterology consultation obtained with Dr. Sonido Leal. Initial lipase and amylase within normal limits. Serial amylase and lipase will be run. We will follow recommendations of Gastroenterology. 2. Chronic obstructive pulmonary disease. The patient will be offered albuterol two puffs p.o. t.i.d. p.r.n. 3. Cardiomyopathy. 4. Diabetes type 2. Continue Lantus as above. Regular insulin sliding scale . 5. Hypertension. Continue Coreg and lisinopril as above. 6. History of cerebrovascular disease. 7. Right hemiparesis. 8. History of cervical cancer. 9. Iron deficiency anemia. 10. Complete left bundle-branch block. The patient is status post AICD placement. Ash Li M.D. DR: ALFREDO JOB#: [id number] CC:
[2016-10-12] VITALS: BP 118/62
[2016-10-12 04:00] VITALS: BP 108/50
[2016-10-12] MEDS: NovoLOG Insulin Flexpen SUBQ SCH ×4 (06:22→21:12)
[2016-10-12 07:33] LABS: PROTHROMBIN TIME 10.2 SEC (9.30-11.50)
[2016-10-12 07:45] LABS: HEMOLYSIS 11; IRON 49 ug/dL (37-145); TOTAL IRON BINDING CAPACITY 341 ug/dL (250-400)
[2016-10-12 07:51] LABS: ALBUMIN/GLOBULIN RATIO 1.1 (1.0-2.7); CALCIUM 9.2 mg/dL (8.6-10.2); CREATININE 1.6 mg/dL (0.5-0.9); POTASSIUM 5.8 mEQ/L (3.4-4.9); THYROID STIMULATING HORMONE 0.783 uIU/mL (0.300-4.500); TOTAL PROTEIN 6.3 g/dL (6.6-8.7)
[2016-10-12 07:52] LABS: CRP QUANT 0.4 mg/dL (< 0.5); MAGNESIUM 2.3 mg/dL (1.7-2.5); PHOSPHORUS 5.3 mg/dL (2.5-4.8); URIC ACID 8.6 mg/dL (3.0-7.5)
[2016-10-12 08:00] VITALS: BP 115/64
[2016-10-12 08:39] LABS: BASOPHILS % (AUTO) 1.4 % (0.0-2.0); EOSINOPHILS % (AUTO) 5.4 % (0.0-3.0); LYMPHOCYTES % (AUTO) 17.8 % (20.0-45.0); MEAN CORPUSCULAR HEMOGLOBIN 25.9 PG (27.0-31.0); MEAN CORPUSCULAR HGB CONC 31.4 G/DL (32.0-36.0); MEAN CORPUSCULAR VOLUME 83 FL (80-99); MEAN PLATELET VOLUME 9.1 FL (6.5-10.1); MONOCYTES % (AUTO) 10.5 % (1.0-10.0); NEUTROPHILS % (AUTO) 64.9 % (45.0-75.0); PLATELET COUNT 229 K/UL (150-450); RED BLOOD COUNT 4.08 M/UL (4.20-5.40); RED CELL DISTRIBUTION WIDTH 13.7 % (11.6-14.8); WHITE BLOOD COUNT 10.4 K/UL (4.8-10.8)
[2016-10-12] MEDS ORDERED: Sodium Polystyrene Sulfonate 15gm Powder ORAL ONE ×2 (09:00→10:15)
[2016-10-12] MEDS: Lyrica 50mg cap ORAL SCH ×2 (09:02→17:34)
[2016-10-12] MEDS: Heparin 5000 units/ml inj SUBQ SCH ×2 (09:04→20:56)
[2016-10-12 09:25] LABS: HEMOGLOBIN A1C 10.4 % (< 6.0)
--- NOTE | 2016-10-12 10:18 | General Progress Note ---
Assessment/Plan Status: unchanged Status Narrative Cr lower- K higher Assessment/Plan status: acute renal failure : Diuretics- Julio inhibitors HyperKalemia Anemia CardioMyopathy- Pacer Obesity Slow hydrate, change to 1/2 NS Kayexelate arrington monitor I&O gastric support Avoid Nephrotoxics Anemia mcclellan per orders Subjective ROS Limited/Unobtainable: No Constitutional: Reports: malaise, weakness Gastrointestinal/Abdominal: Reports: abdominal pain Allergies: Coded Allergies: No Known Allergies (Unverified , 03/12/15) Objective Last 24 Hour Vital Signs Date Time Temp Pulse Resp B/P Pulse Ox O2 Delivery O2 Flow Rate FiO2 10/12/16 09:02 63 115/64 10/12/16 08:00 97.3 63 18 115/64 Nasal Cannula 2.0 100 10/12/16 04:00 97.3 68 18 108/50 99 Room Air 2.0 10/12/16 03:57 70 10/12/16 00:00 64 10/12/16 00:00 96.6 65 18 118/62 95 Nasal Cannula 2.0 10/11/16 22:00 72 101/60 10/11/16 20:00 97.7 69 18 101/55 100 Nasal Cannula 2.0 10/11/16 20:00 75 10/11/16 19:30 98 Nasal Cannula 3.0 32 10/11/16 19:30 Nasal Cannula 3.0 32 10/11/16 16:56 Nasal Cannula 3.0 32 10/11/16 16:56 98 Nasal Cannula 3.0 32 10/11/16 16:30 97.0 70 20 115/68 Nasal Cannula 3.0 10/11/16 16:00 66 10/11/16 14:26 96.8 72 20 114/63 100 Nasal Cannula 3.0 10/11/16 14:19 72 13 96/57 100 Nasal Cannula 2.0 10/11/16 13:48 97.0 72 13 96/57 100 Nasal Cannula 2.0 10/11/16 12:53 74 18 111/40 100 Nasal Cannula 2.0 10/11/16 11:14 97.7 73 16 103/49 100 Nasal Cannula 2.0 Intake and Output 10/11/16 10/12/16 19:00 07:00 Intake Total 0 ml Output Total 300 ml 1300 ml Balance -300 ml -1300 ml Intake Oral 0 ml Output Urine Total 300 ml 1300 ml # Bowel Movements 1 Laboratory Tests 10/11/16 12:05: Prothrombin Time 10.0, Prothromb Time International Ratio 1.0, Activated Partial Thromboplast Time 27 10/11/16 17:20: Urine Random Sodium 30 10/12/16 05:30: Prothrombin Time 10.2, Prothromb Time International Ratio 1.0, Activated Partial Thromboplast Time 27, Sodium Level 142#, Potassium Level 5.8H, Chloride Level 103, Carbon Dioxide Level 24, Anion Gap 15, Blood Urea Nitrogen 49H, Creatinine 1.6H, Estimat Glomerular Filtration Rate 32.0, Glucose Level 150#H, Hemoglobin A1c 10.4H, Uric Acid 8.6H, Calcium Level 9.2, Phosphorus Level 5.3H, Magnesium Level 2.3, Iron Level 49, Total Iron Binding Capacity 341, Percent Iron Saturation 14L, Unsaturated Iron Binding 292, Ferritin 23, Total Bilirubin 0.3, Gamma Glutamyl Transpeptidase 21, Aspartate Amino Transf (AST/SGOT) 15, Alanine Aminotransferase (ALT/SGPT) 8, Alkaline Phosphatase 107H, Total Creatine Kinase 135, C-Reactive Protein, Quantitative 0.4, Pro-B-Type Natriuretic Peptide 1610H, Total Protein 6.3L, Albumin 3.3L, Globulin 3.0, Albumin/Globulin Ratio 1.1, Triglycerides Level 293H, Cholesterol Level 148, LDL Cholesterol 52L, HDL Cholesterol 37, Cholesterol/HDL Ratio 4.0, Amylase Level 50, Lipase 32, Vitamin B12 Level 1447H, Folate [Pending], Thyroid Stimulating Hormone (TSH) 0.783 10/12/16 06:15: Urine Eosinophils None seen 10/12/16 07:55: White Blood Count 10.4, Red Blood Count 4.08L, Hemoglobin 10.6L, Hematocrit 33.7L, Mean Corpuscular Volume 83, Mean Corpuscular Hemoglobin 25.9L, Mean Corpuscular Hemoglobin Concent 31.4L, Red Cell Distribution Width 13.7, Platelet Count 229, Mean Platelet Volume 9.1, Neutrophils (%) (Auto) 64.9, Lymphocytes (%) (Auto) 17.8L, Monocytes (%) (Auto) 10.5H, Eosinophils (%) (Auto ) 5.4H, Basophils (%) (Auto) 1.4 Height (Feet): 5 Height (Inches): 1.00 Weight (Pounds): 230 General Appearance: mild distress Cardiovascular: normal rate Respiratory/Chest: decreased breath sounds Abdomen: distended VALERIO SOTO October 12, 2016 10:18
--- NOTE | 2016-10-12 10:41 | Internal Med Progress Note ---
Subjective Date of Service: October 12, 2016 Physician Name Jovana Aguilar Attending Physician Brendan Wright MD Current Medications Medications (Trade) Dose Ordered Sig/[place] Route PRN Reason Start Time Stop Time Status Last Admin Dose Admin Acetaminophen (Tylenol) 650 mg Q4H PRN ORAL fever 10/11/16 14:45 11/10/16 14:44 Atorvastatin Calcium (Lipitor) 40 mg BEDTIME ORAL 10/11/16 21:00 11/10/16 20:59 10/11/16 21:59 Carvedilol (Coreg) 3.125 mg EVERY 12 HOURS ORAL 10/11/16 21:00 11/10/16 20:59 10/12/16 09:02 Clopidogrel Bisulfate (Plavix) 75 mg DAILY ORAL 10/12/16 09:00 11/11/16 08:59 10/12/16 09:02 Dextrose (Dextrose 50%) STAT PRN IV Hypoglycemia 10/11/16 14:45 11/10/16 14:44 Heparin Sodium (Porcine) (Heparin 5000 units/ml) 5,000 units EVERY 12 HOURS SUBQ 10/11/16 21:00 11/10/16 20:59 10/12/16 09:04 Insulin Aspart (NovoLOG) BEFORE MEALS AND HS SUBQ 10/11/16 16:30 11/10/16 16:29 Morphine Sulfate (Morphine Sulfate) 2 mg Q4H PRN IVP severe Pain (Pain Scale 7-10) 10/11/16 14:45 10/18/16 14:44 Nitroglycerin (Ntg) 0.4 mg Q5M X 3 DOSES PRN SL Prn Chest Pain 10/11/16 14:45 11/10/16 14:44 Ondansetron HCl (Zofran) 4 mg Q6H PRN IVP Nausea & Vomiting 10/11/16 14:45 11/10/16 14:44 Pantoprazole 40 mg 40 mg EVERY 12 HOURS ORAL 10/11/16 21:00 11/10/16 20:59 10/12/16 09:01 Polyethylene Glycol (Miralax) 17 gm HSPRN PRN ORAL Constipation 10/11/16 14:45 11/10/16 14:44 Pregabalin (Lyrica) 50 mg BID ORAL 10/11/16 18:00 11/10/16 17:59 10/12/16 09:02 Sodium Polystyrene Sulfonate (Kayexalate) 30 gm ONCE ONCE ORAL 10/12/16 10:15 10/12/16 10:16 UNV Sodium Chloride (0.45% NS 1000ml) 1,000 ml @ 100 mls/hr Q10H IV 10/12/16 10:15 11/11/16 10:14 UNV Temazepam (Restoril) 15 mg HSPRN PRN ORAL Insomnia 10/11/16 14:45 10/18/16 14:44 Allergies: Coded Allergies: No Known Allergies (Unverified , 03/12/15) ROS Limited/Unobtainable: No Constitutional: Reports: no symptoms HEENT: Reports: no symptoms Cardiovascular: Reports: no symptoms Respiratory: Reports: no symptoms Gastrointestinal/Abdominal: Reports: abdominal pain Genitourinary: Reports: no symptoms 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: Reports: no symptoms Subjective 71 YO F admitted with epigastric and left upper quadrant pain. Await GI consult. Cover for Int [place]-Dr Wright. Objective Last Vital Signs Date Time Temp Pulse Resp B/P Pulse Ox O2 Delivery O2 Flow Rate FiO2 10/12/16 09:02 63 115/64 10/12/16 08:00 97.3 18 Nasal Cannula 2.0 100 10/12/16 04:00 99 Laboratory Tests Test 10/11/16 12:05 10/11/16 17:20 10/12/16 05:30 10/12/16 06:15 Prothrombin Time 10.0 SEC (9.30-11.50) 10.2 SEC (9.30-11.50) Prothromb Time International Ratio 1.0 (0.9-1.1) 1.0 (0.9-1.1) Activated Partial Thromboplast Time 27 SEC (23-33) 27 SEC (23-33) Urine Random Sodium 30 mmol/L Sodium Level 142 mEQ/L (135-145) # Potassium Level 5.8 mEQ/L (3.4-4.9) H Chloride Level 103 mEQ/L (98-107) Carbon Dioxide Level 24 mEQ/L (20-30) Anion Gap 15 (5-15) Blood Urea Nitrogen 49 mg/dL (7-23) H Creatinine 1.6 mg/dL (0.5-0.9) H Estimat Glomerular Filtration Rate 32.0 mL/min (>60) Glucose Level 150 mg/dL (74-106) #H Hemoglobin A1c 10.4 % (< 6.0) H Uric Acid 8.6 mg/dL (3.0-7.5) H Calcium Level 9.2 mg/dL (8.6-10.2) Phosphorus Level 5.3 mg/dL (2.5-4.8) H Magnesium Level 2.3 mg/dL (1.7-2.5) Iron Level 49 ug/dL (37-145) Total Iron Binding Capacity 341 ug/dL (250-400) Percent Iron Saturation 14 % (15-50) L Unsaturated Iron Binding 292 ug/dL (112-346) Ferritin 23 ng/mL (13-150) Total Bilirubin 0.3 mg/dL (0.0-1.2) Gamma Glutamyl Transpeptidase 21 U/L (5-36) Aspartate Amino Transf (AST/SGOT) 15 U/L (5-40) Alanine Aminotransferase (ALT/SGPT) 8 U/L (3-33) Alkaline Phosphatase 107 U/L (35-104) H Total Creatine Kinase 135 U/L (26-140) C-Reactive Protein, Quantitative 0.4 mg/dL (< 0.5) Pro-B-Type Natriuretic Peptide 1610 pg/mL (0-125) H Total Protein 6.3 g/dL (6.6-8.7) L Albumin 3.3 g/dL (3.5-5.2) L Globulin 3.0 g/dL Albumin/Globulin Ratio 1.1 (1.0-2.7) Triglycerides Level 293 mg/dL (< 150) H Cholesterol Level 148 mg/dL (< 200) LDL Cholesterol 52 mg/dL (60-99) L HDL Cholesterol 37 mg/dL (> 60) Cholesterol/HDL Ratio 4.0 (3.3-4.4) Amylase Level 50 U/L (10-110) Lipase 32 U/L (< 60) Vitamin B12 Level 1447 pg/mL (211-946) H Folate Pending Thyroid Stimulating Hormone (TSH) 0.783 uIU/mL (0.300-4.500) Urine Eosinophils None seen Test 10/12/16 07:55 White Blood Count 10.4 K/UL (4.8-10.8) Red Blood Count 4.08 M/UL (4.20-5.40) L Hemoglobin 10.6 G/DL (12.0-16.0) L Hematocrit 33.7 % (37.0-47.0) L Mean Corpuscular Volume 83 FL (80-99) Mean Corpuscular Hemoglobin 25.9 PG (27.0-31.0) L Mean Corpuscular Hemoglobin Concent 31.4 G/DL (32.0-36.0) L Red Cell Distribution Width 13.7 % (11.6-14.8) Platelet Count 229 K/UL (150-450) Mean Platelet Volume 9.1 FL (6.5-10.1) Neutrophils (%) (Auto) 64.9 % (45.0-75.0) Lymphocytes (%) (Auto) 17.8 % (20.0-45.0) L Monocytes (%) (Auto) 10.5 % (1.0-10.0) H Eosinophils (%) (Auto) 5.4 % (0.0-3.0) H Basophils (%) (Auto) 1.4 % (0.0-2.0) Intake and Output 10/11/16 10/12/16 19:00 07:00 Intake Total 0 ml Output Total 300 ml 1300 ml Balance -300 ml -1300 ml Intake Oral 0 ml Output Urine Total 300 ml 1300 ml # Bowel Movements 1 Objective General: alert, cooperative, no distress, appears stated age Head: normocephalic, without obvious abnormality, atraumatic Eyes: conjunctivae/corneas clear. PERRL, EOM's intact Throat: lips, mucosa, and tongue normal. MMM Neck: supple, symmetrical, trachea midline, and no JVD Lungs: clear to auscultation bilaterally Heart: regular rate and rhythm, S1, S2 normal, no murmur, click, rub or gallop Abdomen: soft, tender, to palp epigastric and left upper quadrant; non- distended, bowel sounds decreased; no masses or organomegaly Extremities: extremities normal, atraumatic, no cyanosis or edema Pulses: 2+ and symmetric Skin: skin color, texture, turgor normal; no rashes or lesions Neurologic: right hemiparesis, no focal deficits Assessment/Plan Problem List: (1) Left upper quadrant pain (2) Abdominal pain Assessment & Plan: History of pancreatitis. CT = WNL. Await GI consult. (3) Epigastric pain (4) Renal failure (5) COPD (chronic obstructive pulmonary disease) (6) Cardiomyopathy (7) Diabetes mellitus Assessment & Plan: Cont novolog sliding scale. (8) HTN (hypertension) Assessment & Plan: Continue coreg. (9) Cerebral vascular disease (10) AICD (automatic cardioverter/defibrillator) present (11) Hemiparesis, right (12) LBBB (left bundle branch block) (13) Iron deficiency anemia (14) Hyperkalemia Assessment & Plan: Oral Kayexalate. Status: not improved JOVANA AGUILAR October 12, 2016 10:41
[2016-10-12 11:13] LABS: TROPONIN I < 0.30 ng/mL (<=0.30)
--- NOTE | 2016-10-12 13:19 | Pulmonology Progress Note ---
Assessment/Plan Problems: (1) Hyperkalemia (2) Renal failure (3) Diabetes mellitus (4) Hemiparesis, right Assessment/Plan improving IV fluids kayexalate renal us renal electroltyes dvt prophylaxis Subjective ROS Limited/Unobtainable: No Interval Events: feeling better, Allergies: Coded Allergies: No Known Allergies (Unverified , 03/12/15) Objective Last 24 Hour Vital Signs Date Time Temp Pulse Resp B/P Pulse Ox O2 Delivery O2 Flow Rate FiO2 10/12/16 09:02 63 115/64 10/12/16 08:00 97.3 63 18 115/64 Nasal Cannula 2.0 100 10/12/16 08:00 69 10/12/16 04:00 97.3 68 18 108/50 99 Room Air 2.0 10/12/16 03:57 70 10/12/16 00:00 64 10/12/16 00:00 96.6 65 18 118/62 95 Nasal Cannula 2.0 10/11/16 22:00 72 101/60 10/11/16 20:00 97.7 69 18 101/55 100 Nasal Cannula 2.0 10/11/16 20:00 75 10/11/16 19:30 98 Nasal Cannula 3.0 32 10/11/16 19:30 Nasal Cannula 3.0 32 10/11/16 16:56 Nasal Cannula 3.0 32 10/11/16 16:56 98 Nasal Cannula 3.0 32 10/11/16 16:30 97.0 70 20 115/68 Nasal Cannula 3.0 10/11/16 16:00 66 10/11/16 14:26 96.8 72 20 114/63 100 Nasal Cannula 3.0 10/11/16 14:19 72 13 96/57 100 Nasal Cannula 2.0 10/11/16 13:48 97.0 72 13 96/57 100 Nasal Cannula 2.0 Intake and Output 10/11/16 10/12/16 19:00 07:00 Intake Total 0 ml Output Total 300 ml 1300 ml Balance -300 ml -1300 ml Intake Oral 0 ml Output Urine Total 300 ml 1300 ml # Bowel Movements 1 HEENT: normocephalic, atraumatic Respiratory/Chest: chest wall non-tender, lungs clear Breasts: no masses Cardiovascular: normal rate Abdomen: normal bowel sounds, no organomegaly Genitourinary: normal external genitalia Extremities: no cyanosis 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: crew director II-XII 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, no motor/sensory deficits Lymphatic: no neck adenopathy Laboratory Tests 10/11/16 17:20: Urine Random Sodium 30 10/12/16 05:30: Prothrombin Time 10.2, Prothromb Time International Ratio 1.0, Activated Partial Thromboplast Time 27, Sodium Level 142#, Potassium Level 5.8H, Chloride Level 103, Carbon Dioxide Level 24, Anion Gap 15, Blood Urea Nitrogen 49H, Creatinine 1.6H, Estimat Glomerular Filtration Rate 32.0, Glucose Level 150#H, Hemoglobin A1c 10.4H, Uric Acid 8.6H, Calcium Level 9.2, Phosphorus Level 5.3H, Magnesium Level 2.3, Iron Level 49, Total Iron Binding Capacity 341, Percent Iron Saturation 14L, Unsaturated Iron Binding 292, Ferritin 23, Total Bilirubin 0.3, Gamma Glutamyl Transpeptidase 21, Aspartate Amino Transf (AST/SGOT) 15, Alanine Aminotransferase (ALT/SGPT) 8, Alkaline Phosphatase 107H, Total Creatine Kinase 135, Troponin I < 0.30, C-Reactive Protein, Quantitative 0.4, Pro-B-Type Natriuretic Peptide 1610H, Total Protein 6.3L, Albumin 3.3L, Globulin 3.0, Albumin/Globulin Ratio 1.1, Triglycerides Level 293H, Cholesterol Level 148, LDL Cholesterol 52L, HDL Cholesterol 37, Cholesterol/HDL Ratio 4.0, Amylase Level 50, Lipase 32, Vitamin B12 Level 1447H, Folate [Pending], Thyroid Stimulating Hormone (TSH) 0.783 10/12/16 06:15: Urine Eosinophils None seen 10/12/16 07:55: White Blood Count 10.4, Red Blood Count 4.08L, Hemoglobin 10.6L, Hematocrit 33.7L, Mean Corpuscular Volume 83, Mean Corpuscular Hemoglobin 25.9L, Mean Corpuscular Hemoglobin Concent 31.4L, Red Cell Distribution Width 13.7, Platelet Count 229, Mean Platelet Volume 9.1, Neutrophils (%) (Auto) 64.9, Lymphocytes (%) (Auto) 17.8L, Monocytes (%) (Auto) 10.5H, Eosinophils (%) (Auto ) 5.4H, Basophils (%) (Auto) 1.4 Current Medications Medications (Trade) Dose Ordered Sig/[place] Route PRN Reason Start Time Stop Time Status Last Admin Dose Admin Acetaminophen (Tylenol) 650 mg Q4H PRN ORAL fever 10/11/16 14:45 11/10/16 14:44 Atorvastatin Calcium (Lipitor) 40 mg BEDTIME ORAL 10/11/16 21:00 11/10/16 20:59 10/11/16 21:59 Carvedilol (Coreg) 3.125 mg EVERY 12 HOURS ORAL 10/11/16 21:00 11/10/16 20:59 10/12/16 09:02 Clopidogrel Bisulfate (Plavix) 75 mg DAILY ORAL 10/12/16 09:00 11/11/16 08:59 10/12/16 09:02 Dextrose (Dextrose 50%) STAT PRN IV Hypoglycemia 10/11/16 14:45 11/10/16 14:44 Heparin Sodium (Porcine) (Heparin 5000 units/ml) 5,000 units EVERY 12 HOURS SUBQ 10/11/16 21:00 11/10/16 20:59 10/12/16 09:04 Insulin Aspart (NovoLOG) BEFORE MEALS AND HS SUBQ 10/11/16 16:30 11/10/16 16:29 Morphine Sulfate (Morphine Sulfate) 2 mg Q4H PRN IVP severe Pain (Pain Scale 7-10) 10/11/16 14:45 10/18/16 14:44 Nitroglycerin (Ntg) 0.4 mg Q5M X 3 DOSES PRN SL Prn Chest Pain 10/11/16 14:45 11/10/16 14:44 Ondansetron HCl (Zofran) 4 mg Q6H PRN IVP Nausea & Vomiting 10/11/16 14:45 11/10/16 14:44 Pantoprazole 40 mg 40 mg EVERY 12 HOURS ORAL 10/11/16 21:00 11/10/16 20:59 10/12/16 09:01 Polyethylene Glycol (Miralax) 17 gm HSPRN PRN ORAL Constipation 10/11/16 14:45 11/10/16 14:44 Pregabalin (Lyrica) 50 mg BID ORAL 10/11/16 18:00 11/10/16 17:59 10/12/16 09:02 Sodium Chloride (0.45% NS 1000ml) 1,000 ml @ 100 mls/hr Q10H IV 10/12/16 11:00 10/12/16 20:59 10/12/16 12:09 Temazepam (Restoril) 15 mg HSPRN PRN ORAL Insomnia 10/11/16 14:45 10/18/16 14:44 ERVIN COHN October 12, 2016 13:19
--- NOTE | 2016-10-12 15:52 | GI Initial Consult Note ---
History of Present Illness General Date patient seen: October 12, 2016 Time patient seen: 10:00 Reason for Hospitalization: Abdominal Pain Referring physician: Dr. Aguilar Reason for Consultation: ABDOMINAL PAIN Present Illness HPI The patient presents with abdominal pain. The pain is generalized according to the patient it's more in the right upper quadrant. Radiates somewhat to her back. It began at 1 AM. She denies any vomiting or diarrhea. She's been moving her bowels without any difficulty. She's had abdominal pain like this before. The patient has a history of pancreatitis, elevated alkaline phosphatase and UTI. She's been admitted for hyperkalemia and renal insufficiency in the past. The patient's diabetic, has hypertension and also 2 strokes with right-sided weakness. GI CONSULT: HPI as noted above. GI consulted for abdominal pain. Pt seen on floor, awake A&Ox4 NAD with no s/sx of distress. Pt presents today with RUQ abdominal pain, anemia, iron deficiency, elevated alkaline phosphatase and elevated triglyceride level. Normal EGD/colonoscopy performed in 2014. Abd U/ S and APCT noted, see report below. Procedure: US ABD Complete Indication:Abdominal pain Impression: Hepatomegaly with fatty infiltration. Procedure: CT Abdomen Pelvis WO Contrast Indication: Abdominal pain Impression: Tiny nonobstructive stone in the right kidney. Trace right pleural effusion and basilar atelectasis. Pacemaker Cardiomegaly and atherosclerotic vascular disease Small hiatal hernia. Diverticulosis of the colon Status post hysterectomy Smallwood catheter in good position POST-ENDOSCOPIC DIAGNOSES: 1. Normal upper endoscopy, status post random biopsies of the antrum. 2. Normal colonoscopy, status post random biopsy of the transverse colon. PROCEDURE: Upper gastrointestinal endoscopy with biopsy as well as colonoscopy with biopsy. SURGEON: Sera Chaves M.D. 03/17/2015 03:41 Home Meds Active Scripts Carvedilol (Coreg) 3.125 Mg Tablet, 3.125 MG ORAL EVERY 12 HOURS for 30 Days, TAB Prov:JOVANA AGUILAR 07/11/16 Insulin Aspart (Novolog Flexpen) 100 Units/Ml Pen, 0 UNITS SUBQ BEFORE MEALS AND HS, #1 EA Prov:Suzie Jin TUCKING MACHINE OPERATOR 07/27/15 Reported Medications Acetaminophen* (TYLENOL EXTRA STRENGTH*) 500 Mg Tablet, 500 MG ORAL Q6H Y for Mild Pain/Temp > 100.5, TAB 0 Refills 10/11/16 Omeprazole (OMEPRAZOLE) 20 Mg Capsule.dr, 20 MG ORAL DAILY, CAP 10/11/16 Simethicone (LA-ACID) 80 Mg Tab.chew, 80 MG PO, TAB 10/11/16 Clopidogrel* (CLOPIDOGREL*) 75 Mg Tablet, 75 MG ORAL DAILY, TAB 10/11/16 Insulin Glargine (LANTUS) 100 Unit/1 Ml Insuln.pen, 0 SUBQ BEDTIME, #1 EA 0 Refills 03/19/16 Furosemide* (LASIX*) 20 Mg Tablet, 20 MG ORAL DAILY, TAB 03/19/16 Aspirin Ec* (ASPIRIN EC*) 81 Mg Tablet.dr, 81 MG ORAL DAILY, TAB 02/28/16 Pregabalin (Lyrica) 50 Mg Capsule, 50 MG ORAL BID, CAP 02/28/16 Loratadine (LORATADINE) 10 Mg Tab.rapdis, 10 MG PO DAILY, TAB 02/28/16 Esomeprazole Magnesium (NEXIUM) 40 Mg Capsule.dr, 40 MG ORAL DAILY, CAP 02/28/16 Isosorbide Dinitrate* (ISORDIL*) 30 Mg Tablet, 30 MG ORAL DAILY, TAB 0 Refills 02/28/16 Lisinopril (LISINOPRIL*) 20 Mg Tablet, 5 MG ORAL DAILY, TAB 01/30/16 Atorvastatin Calcium* (ATORVASTATIN CALCIUM*) 20 Mg Tablet, 40 MG ORAL BEDTIME, TAB 11/06/15 Discontinued Reported Medications Sucralfate* (CARAFATE*) 1 Gm Tablet, 1 GM ORAL AC+HS, #120 TAB 03/23/16 Bisacodyl* (DULCOLAX*) 5 Mg Tablet.dr, 5 MG ORAL BID, TAB 0 Refills 02/28/16 Carvedilol* (CARVEDILOL*) 3.125 Mg Tablet, 3.125 MG ORAL EVERY 12 HOURS, TAB 11/22/15 Discontinued Scripts Zolpidem Tartrate* (AMBIEN*) 5 Mg Tablet, 5 MG ORAL DAILYPRN Y for Insomnia, #1 TAB Prov:Suzie Jin TUCKING MACHINE OPERATOR 07/21/15 Pantoprazole* (PROTONIX*) 40 Mg Tablet., 40 MG ORAL ACBREAKFAST, #1 TAB Prov:Suzie Jin TUCKING MACHINE OPERATOR 07/21/15 Lorazepam* (ATIVAN*) 1 Mg Tablet, 1 MG ORAL Q4H Y for For Anxiety, #1 TAB Prov:Suzie Jin Evan TUCKING MACHINE OPERATOR 07/21/15 Med list reviewed/reconciled: Yes Allergies: Coded Allergies: No Known Allergies (Unverified , 03/12/15) Patient History History Provided By: Patient, Medical Record PMH Narrative Past Medical History: No History, Except For Hx Cardiac Problems: Yes Hx Hypertension: Yes Hx Pacemaker: Yes - LEFT Hx COPD: Yes Hx Diabetes: Yes Hx Cancer: Yes - uterine and cervical Hx Gastrointestinal Problems: Yes Hx Neurological Problems: Yes Hx Cerebrovascular Accident: Yes Hx Dementia: No Hx Alzheimer's Disease: No Hx Parkinson's Disease: No Hx Meningitis: No Hx Epilepsy: No Hx Multiple Sclerosis: No Hx Cerebral Palsy: No Hx Amyotrophic Lat Sclerosis: No Hx Guillian-Elizabeth Syndrome: No Hx Paralysis: Yes - right sided hemiplegia Hx Peripheral Neuropathy: Yes Hx Spinal Cord Injury: No Hx Head Trauma: No Hx Traumatic Brain Injury: No Hx Memory Loss: No Hx Concentration Difficulty: Yes Hx Speech Problem: No Hx Tremors: Yes Hx Vertigo: No Hx Dizziness: Yes Hx Syncope: No Hx Headaches: No Hx Aphasia: No Hx Dysphasia: No Hx Numbness: Yes Hx Weakness: Yes Hx Fatigue: No Hx Neurologic Surgery: No Hx Brain Shunt: No Review of Systems All Other Systems: negative except mentioned in HPI Physical Exam Vital Signs Date Time Temp Pulse Resp B/P Pulse Ox O2 Delivery O2 Flow Rate FiO2 10/11/16 08:29 97.9 96 20 155/87 100 Room Air 10/11/16 10:00 2.0 10/11/16 16:56 32 Labs Laboratory Tests Test 10/11/16 17:20 10/12/16 05:30 10/12/16 06:15 10/12/16 07:55 Urine Random Sodium 30 mmol/L Prothrombin Time 10.2 SEC (9.30-11.50) Prothromb Time International Ratio 1.0 (0.9-1.1) Activated Partial Thromboplast Time 27 SEC (23-33) Sodium Level 142 mEQ/L (135-145) # Potassium Level 5.8 mEQ/L (3.4-4.9) H Chloride Level 103 mEQ/L (98-107) Carbon Dioxide Level 24 mEQ/L (20-30) Anion Gap 15 (5-15) Blood Urea Nitrogen 49 mg/dL (7-23) H Creatinine 1.6 mg/dL (0.5-0.9) H Estimat Glomerular Filtration Rate 32.0 mL/min (>60) Glucose Level 150 mg/dL (74-106) #H Hemoglobin A1c 10.4 % (< 6.0) H Uric Acid 8.6 mg/dL (3.0-7.5) H Calcium Level 9.2 mg/dL (8.6-10.2) Phosphorus Level 5.3 mg/dL (2.5-4.8) H Magnesium Level 2.3 mg/dL (1.7-2.5) Iron Level 49 ug/dL (37-145) Total Iron Binding Capacity 341 ug/dL (250-400) Percent Iron Saturation 14 % (15-50) L Unsaturated Iron Binding 292 ug/dL (112-346) Ferritin 23 ng/mL (13-150) Total Bilirubin 0.3 mg/dL (0.0-1.2) Gamma Glutamyl Transpeptidase 21 U/L (5-36) Aspartate Amino Transf (AST/SGOT) 15 U/L (5-40) Alanine Aminotransferase (ALT/SGPT) 8 U/L (3-33) Alkaline Phosphatase 107 U/L (35-104) H Total Creatine Kinase 135 U/L (26-140) Troponin I < 0.30 ng/mL (<=0.30) C-Reactive Protein, Quantitative 0.4 mg/dL (< 0.5) Pro-B-Type Natriuretic Peptide 1610 pg/mL (0-125) H Total Protein 6.3 g/dL (6.6-8.7) L Albumin 3.3 g/dL (3.5-5.2) L Globulin 3.0 g/dL Albumin/Globulin Ratio 1.1 (1.0-2.7) Triglycerides Level 293 mg/dL (< 150) H Cholesterol Level 148 mg/dL (< 200) LDL Cholesterol 52 mg/dL (60-99) L HDL Cholesterol 37 mg/dL (> 60) Cholesterol/HDL Ratio 4.0 (3.3-4.4) Amylase Level 50 U/L (10-110) Lipase 32 U/L (< 60) Vitamin B12 Level 1447 pg/mL (211-946) H Folate Pending Thyroid Stimulating Hormone (TSH) 0.783 uIU/mL (0.300-4.500) Urine Eosinophils None seen White Blood Count 10.4 K/UL (4.8-10.8) Red Blood Count 4.08 M/UL (4.20-5.40) L Hemoglobin 10.6 G/DL (12.0-16.0) L Hematocrit 33.7 % (37.0-47.0) L Mean Corpuscular Volume 83 FL (80-99) Mean Corpuscular Hemoglobin 25.9 PG (27.0-31.0) L Mean Corpuscular Hemoglobin Concent 31.4 G/DL (32.0-36.0) L Red Cell Distribution Width 13.7 % (11.6-14.8) Platelet Count 229 K/UL (150-450) Mean Platelet Volume 9.1 FL (6.5-10.1) Neutrophils (%) (Auto) 64.9 % (45.0-75.0) Lymphocytes (%) (Auto) 17.8 % (20.0-45.0) L Monocytes (%) (Auto) 10.5 % (1.0-10.0) H Eosinophils (%) (Auto) 5.4 % (0.0-3.0) H Basophils (%) (Auto) 1.4 % (0.0-2.0) General Appearance: well appearing, no apparent distress, obese Head: normocephalic EENT: normal ENT inspection Neck: normal inspection, full range of motion, supple Respiratory: normal breath sounds, no respiratory distress Cardiovascular: normal rate Gastrointestinal: normal inspection, non tender, soft Rectal: deferred Neurologic: normal inspection, alert, oriented x3, responsive Psychiatric: normal inspection, judgement/insight normal, memory normal Skin: normal inspection, normal color, no rash Lymphatic: normal inspection, no adenopathy Current Medications Current Medications Medications (Trade) Dose Ordered Sig/[place] Route PRN Reason Start Time Stop Time Status Last Admin Dose Admin Acetaminophen (Tylenol) 650 mg Q4H PRN ORAL fever 10/11/16 14:45 11/10/16 14:44 Atorvastatin Calcium (Lipitor) 40 mg BEDTIME ORAL 10/11/16 21:00 11/10/16 20:59 10/11/16 21:59 Carvedilol (Coreg) 3.125 mg EVERY 12 HOURS ORAL 10/11/16 21:00 11/10/16 20:59 10/12/16 09:02 Clopidogrel Bisulfate (Plavix) 75 mg DAILY ORAL 10/12/16 09:00 11/11/16 08:59 10/12/16 09:02 Dextrose (Dextrose 50%) STAT PRN IV Hypoglycemia 10/11/16 14:45 11/10/16 14:44 Heparin Sodium (Porcine) (Heparin 5000 units/ml) 5,000 units EVERY 12 HOURS SUBQ 10/11/16 21:00 11/10/16 20:59 10/12/16 09:04 Insulin Aspart (NovoLOG) BEFORE MEALS AND HS SUBQ 10/11/16 16:30 11/10/16 16:29 Morphine Sulfate (Morphine Sulfate) 2 mg Q4H PRN IVP severe Pain (Pain Scale 7-10) 10/11/16 14:45 10/18/16 14:44 Nitroglycerin (Ntg) 0.4 mg Q5M X 3 DOSES PRN SL Prn Chest Pain 10/11/16 14:45 11/10/16 14:44 Ondansetron HCl (Zofran) 4 mg Q6H PRN IVP Nausea & Vomiting 10/11/16 14:45 11/10/16 14:44 Pantoprazole 40 mg 40 mg EVERY 12 HOURS ORAL 10/11/16 21:00 11/10/16 20:59 10/12/16 09:01 Polyethylene Glycol (Miralax) 17 gm HSPRN PRN ORAL Constipation 10/11/16 14:45 11/10/16 14:44 Pregabalin (Lyrica) 50 mg BID ORAL 10/11/16 18:00 11/10/16 17:59 10/12/16 09:02 Sodium Chloride (0.45% NS 1000ml) 1,000 ml @ 100 mls/hr Q10H IV 10/12/16 11:00 10/12/16 20:59 10/12/16 12:09 Temazepam (Restoril) 15 mg HSPRN PRN ORAL Insomnia 10/11/16 14:45 10/18/16 14:44 GI: Plan Problems: (1) Anemia (2) Obesity (3) Iron deficiency anemia (4) Abdominal pain (5) Steatosis of liver (6) High triglycerides Plan abd U/S reviewed >> Hepatomegaly with fatty infiltration. AP CT reviewed >> Pacemaker, see full report. Lipase negative OB stool uncollected, consider SBCE if positive s/p normal EGD/colonoscopy in 2014 iron deficiency >> venofer x 1 symptomatic treatment at this time pain mgmt CLD, adv as tolerated H2B bowel regime fu labs Discussed with Dr. Leal. Thank you for referring this patient, we will follow. Rizwana Cotton N.P. October 12, 2016 15:52
[2016-10-12 16:00] VITALS: BP 118/46
[2016-10-12] MEDS: Docusate 100mg/10ml Liq ORAL SCH (17:34)
[2016-10-12 18:32] LABS: TROPONIN I < 0.30 ng/mL (<=0.30)
[2016-10-12 20:00] VITALS: BP 103/55
[2016-10-13 04:04] VITALS: BP 115/47
[2016-10-13 06:05] LABS: BASOPHILS % (AUTO) 0.9 % (0.0-2.0); EOSINOPHILS % (AUTO) 4.5 % (0.0-3.0); LYMPHOCYTES % (AUTO) 16.5 % (20.0-45.0); MEAN CORPUSCULAR HEMOGLOBIN 26.4 PG (27.0-31.0); MEAN CORPUSCULAR VOLUME 82 FL (80-99); MEAN PLATELET VOLUME 9.9 FL (6.5-10.1); MONOCYTES % (AUTO) 11.2 % (1.0-10.0); PLATELET COUNT 219 K/UL (150-450); RED BLOOD COUNT 3.78 M/UL (4.20-5.40); RED CELL DISTRIBUTION WIDTH 13.9 % (11.6-14.8); WHITE BLOOD COUNT 10.4 K/UL (4.8-10.8)
[2016-10-13 06:28] LABS: AMYLASE 48 U/L (10-110); LIPASE 28 U/L (< 60)
[2016-10-13] MEDS: NovoLOG Insulin Flexpen SUBQ SCH ×4 (06:40→21:14)
[2016-10-13 06:44] LABS: ALBUMIN/GLOBULIN RATIO 0.9 (1.0-2.7); CALCIUM 8.6 mg/dL (8.6-10.2); CREATININE 1.2 mg/dL (0.5-0.9); CRP QUANT 0.9 mg/dL (< 0.5); GLOMERULAR FILTRATION RATE 44.5 mL/min (>60); PHOSPHORUS 3.9 mg/dL (2.5-4.8); POTASSIUM 4.7 mEQ/L (3.4-4.9); TOTAL PROTEIN 6.7 g/dL (6.6-8.7); URIC ACID 8.4 mg/dL (3.0-7.5)
[2016-10-13 07:43] VITALS: BP 114/50
[2016-10-13] MEDS: Lyrica 50mg cap ORAL SCH ×2 (08:27→17:20)
[2016-10-13] MEDS: Docusate 100mg/10ml Liq ORAL SCH ×2 (08:28→12:01)
[2016-10-13] MEDS: Heparin 5000 units/ml inj SUBQ SCH ×2 (08:29→21:12)
--- NOTE | 2016-10-13 08:39 | Diagnostic Imaging Report ---
Indications: Needs long-term IV access Technique: Ultrasound confirms patent compressible right brachial vein. Total sterile technique, including sterile probe cover and sterile gel, hat, mask,, sterile gown, large sterile drape, and preparation with 2% chlorhexidine utilized. Local anesthesia with 1% lidocaine. Under real-time ultrasound guidance, puncture brachial vein using 21-gauge needle, documented and archived, passage 0.018 guidewire under direct fluoroscopy, which was used to determine appropriate catheter length, exchange for 5 [place] peel-away sheath. 5 [place] Bard dual-lumen power PICC cut to 37 cm. It was inserted through the peel-away sheath. Peel-away sheath and guidewire removed. Catheter fixed to the skin. Both catheter ports aspirated and flushed. Patient tolerated procedure well, without immediate complication. Digital radiograph documents satisfactory catheter tip position, at the cavoatrial junction. Total fluoroscopy time 0.2 minutes. Total dose area product 37 dGycm2 Impression: Successful placement of right arm PICC under sonographic and fluoroscopic guidance, as described above.
--- NOTE | 2016-10-13 08:39 | Cardiology Report ---
APPROVED REPORT EKG Measurement Heart [id number] Abnormal ECG Dual-Chamber Pacemaker
--- NOTE | 2016-10-13 08:39 | Cardiology Report ---
APPROVED REPORT EXAM: Two-dimensional and M-mode echocardiogram with Doppler and color Doppler. INDICATION Congestive Heart Failure M-Mode DIMENSIONS IVSd1.1 (0.7-1.1cm)Left Atrium (MM)5.3 (1.6-4.0cm) LVDd5.8 (3.5-5.6cm)Aortic Root3.3 (2.0-3.7cm) PWd1.2 (0.7-1.1cm)Aortic Cusp Exc.1.4 (1.5-2.0cm) LVDs5.3 (2.5-4.0cm) PWs2.0 cm Technically difficult study due to poor acoustical windows. Normal left ventricular chamber size. Global left ventricular hypokinesis. Distal anterior and apical akinesis to extent visualized. Left ventricular ejection fraction estimated to be 20-25 %. Mild left ventricular hypertrophy by 2-D. Anterior Echo-free space, may be due to pericardial fat or effusion. Mild left atrial enlargement by 2-D.. Right cardiac chamber sizes are within normal limits. Aortic valve calcification with decreased cusp excursion c/w mild aortic stenosis. Thickened mitral valve leaflets with normal excursion. Mitral annulus and aortic root calcification. Pulmonic valve not well visualized. Normal tricuspid valve structure. IVC at normal size with physiologic collapse. Pacemaker wire present in the right side chambers. A color flow and spectral Doppler study was performed and revealed: Mild to moderate aortic regurgitation. Peak aortic valve gradient of 16 mm Hg and a mean of 9 mmHg. Aortic valve area 1.5 cm2 calculated by continuity equation. Moderate mitral regurgitation. Mitral diastolic velocities suggest reduced left ventricular relaxation c/w mild LV diastolic dysfunction (Grade I ). Mild tricuspid regurgitation. Tricuspid systolic velocities suggests peak right ventricular systolic pressure of 53 mmHg, consistent with moderate pulmonary hypertension.
--- NOTE | 2016-10-13 10:08 | General Progress Note ---
Assessment/Plan Status: stable Status Narrative Cr down to baseline Assessment/Plan status: acute renal failure : Diuretics- Julio inhibitors HyperKalemia Anemia CardioMyopathy- Pacer Obesity Slow hydrate, arrington monitor I&O gastric support Avoid Nephrotoxics Anemia mcclellan per orders Subjective ROS Limited/Unobtainable: No Constitutional: Reports: malaise Allergies: Coded Allergies: No Known Allergies (Unverified , 03/12/15) Objective Last 24 Hour Vital Signs Date Time Temp Pulse Resp B/P Pulse Ox O2 Delivery O2 Flow Rate FiO2 10/13/16 08:28 83 114/50 10/13/16 07:43 98.4 83 18 114/50 100 Nasal Cannula 2.0 10/13/16 06:39 Nasal Cannula 3.0 10/13/16 06:38 99 Nasal Cannula 3.0 10/13/16 04:39 73 10/13/16 04:04 97.7 68 20 115/47 Room Air 10/13/16 00:12 Room Air 10/13/16 00:00 71 10/12/16 21:00 73 102/55 10/12/16 20:00 71 10/12/16 20:00 97.0 72 20 103/55 99 Room Air 10/12/16 19:47 99 Nasal Cannula 3.0 32 10/12/16 19:47 Nasal Cannula 3.0 32 10/12/16 16:00 97.0 69 18 118/46 Nasal Cannula 2.0 100 10/12/16 16:00 63 10/12/16 12:00 72 Intake and Output 10/12/16 10/13/16 19:00 07:00 Intake Total 600 ml 500 ml Output Total 1300 ml Balance 600 ml -800 ml Intake Oral 100 ml IV Total 600 ml 400 ml Output Urine Total 1300 ml Laboratory Tests 10/12/16 18:00: Troponin I < 0.30 10/13/16 01:30: Urine Eosinophils Moderate 10/13/16 05:15: White Blood Count 10.4, Red Blood Count 3.78L, Hemoglobin 10.0L, Hematocrit 31.2L, Mean Corpuscular Volume 82, Mean Corpuscular Hemoglobin 26.4L, Mean Corpuscular Hemoglobin Concent 32.0, Red Cell Distribution Width 13.9, Platelet Count 219, Mean Platelet Volume 9.9, Neutrophils (%) (Auto) 67.0, Lymphocytes (% ) (Auto) 16.5L, Monocytes (%) (Auto) 11.2H, Eosinophils (%) (Auto) 4.5H, Basophils (%) (Auto) 0.9, Sodium Level 142, Potassium Level 4.7, Chloride Level 103, Carbon Dioxide Level 28, Anion Gap 11, Blood Urea Nitrogen 30H, Creatinine 1.2H, Estimat Glomerular Filtration Rate 44.5, Glucose Level 166H, Uric Acid 8.4H, Calcium Level 8.6, Phosphorus Level 3.9, Total Bilirubin 0.4, Aspartate Amino Transf (AST/SGOT) 14, Alanine Aminotransferase (ALT/SGPT) 7, Alkaline Phosphatase 101, C-Reactive Protein, Quantitative 0.9H, Pro-B-Type Natriuretic Peptide 958H, Total Protein 6.7, Albumin 3.3L, Globulin 3.4, Albumin/Globulin Ratio 0.9L, Amylase Level 48, Lipase 28 Height (Feet): 5 Height (Inches): 1.00 Weight (Pounds): 230 General Appearance: no apparent distress Abdomen: soft VALERIO SOTO October 13, 2016 10:07
--- NOTE | 2016-10-13 10:39 | GI Progress Note ---
Assessment/Plan Problems: (1) High triglycerides ICD Codes: E78.1 - Pure hyperglyceridemia SNOMED: 726167674 (2) Steatosis of liver ICD Codes: K76.0 - Fatty (change of) liver, not elsewhere classified SNOMED: 363156863 (3) Obesity ICD Codes: E66.9 - Obesity, unspecified SNOMED: 840112034 (4) Anemia ICD Codes: D64.9 - Anemia, unspecified SNOMED: 631972619 (5) Iron deficiency anemia ICD Codes: D50.9 - Iron deficiency anemia, unspecified SNOMED: 90809313 (6) Acid reflux ICD Codes: K21.9 - Gastro-esophageal reflux disease without esophagitis SNOMED: 340825246 (7) Hypoalbuminemia ICD Codes: E88.09 - Other disorders of plasma-protein metabolism, not elsewhere classified SNOMED: 738112655 (8) Abdominal pain ICD Codes: R10.9 - Unspecified abdominal pain SNOMED: 67354366 Qualifiers: Qualified Codes: R10.84 - Generalized abdominal pain Status: stable Status Narrative Discussed with Dr. Leal. Assessment/Plan abd U/S reviewed >> Hepatomegaly with fatty infiltration. AP CT reviewed >> Pacemaker, see full report. Lipase negative OB stool uncollected, consider SBCE if positive s/p normal EGD/colonoscopy in 2014 iron deficiency >> venofer x 1 EF - 20% symptomatic treatment at this time pain mgmt adv to low sodium diet H2B bowel regime fu labs Subjective Gastrointestinal/Abdominal: Reports: abdominal pain Objective Last 24 Hour Vital Signs Date Time Temp Pulse Resp B/P Pulse Ox O2 Delivery O2 Flow Rate FiO2 10/13/16 08:28 83 114/50 10/13/16 07:43 98.4 83 18 114/50 100 Nasal Cannula 2.0 10/13/16 06:39 Nasal Cannula 3.0 10/13/16 06:38 99 Nasal Cannula 3.0 10/13/16 04:39 73 10/13/16 04:04 97.7 68 20 115/47 Room Air 10/13/16 00:12 Room Air 10/13/16 00:00 71 10/12/16 21:00 73 102/55 10/12/16 20:00 71 10/12/16 20:00 97.0 72 20 103/55 99 Room Air 10/12/16 19:47 99 Nasal Cannula 3.0 32 10/12/16 19:47 Nasal Cannula 3.0 32 10/12/16 16:00 97.0 69 18 118/46 Nasal Cannula 2.0 100 10/12/16 16:00 63 10/12/16 12:00 72 Intake and Output 10/12/16 10/13/16 19:00 07:00 Intake Total 600 ml 500 ml Output Total 1300 ml Balance 600 ml -800 ml Intake Oral 100 ml IV Total 600 ml 400 ml Output Urine Total 1300 ml Laboratory Tests Test 10/12/16 18:00 10/13/16 01:30 10/13/16 05:15 Troponin I < 0.30 ng/mL (<=0.30) Urine Eosinophils Moderate White Blood Count 10.4 K/UL (4.8-10.8) Red Blood Count 3.78 M/UL (4.20-5.40) L Hemoglobin 10.0 G/DL (12.0-16.0) L Hematocrit 31.2 % (37.0-47.0) L Mean Corpuscular Volume 82 FL (80-99) Mean Corpuscular Hemoglobin 26.4 PG (27.0-31.0) L Mean Corpuscular Hemoglobin Concent 32.0 G/DL (32.0-36.0) Red Cell Distribution Width 13.9 % (11.6-14.8) Platelet Count 219 K/UL (150-450) Mean Platelet Volume 9.9 FL (6.5-10.1) Neutrophils (%) (Auto) 67.0 % (45.0-75.0) Lymphocytes (%) (Auto) 16.5 % (20.0-45.0) L Monocytes (%) (Auto) 11.2 % (1.0-10.0) H Eosinophils (%) (Auto) 4.5 % (0.0-3.0) H Basophils (%) (Auto) 0.9 % (0.0-2.0) Sodium Level 142 mEQ/L (135-145) Potassium Level 4.7 mEQ/L (3.4-4.9) Chloride Level 103 mEQ/L (98-107) Carbon Dioxide Level 28 mEQ/L (20-30) Anion Gap 11 (5-15) Blood Urea Nitrogen 30 mg/dL (7-23) H Creatinine 1.2 mg/dL (0.5-0.9) H Estimat Glomerular Filtration Rate 44.5 mL/min (>60) Glucose Level 166 mg/dL (74-106) H Uric Acid 8.4 mg/dL (3.0-7.5) H Calcium Level 8.6 mg/dL (8.6-10.2) Phosphorus Level 3.9 mg/dL (2.5-4.8) Total Bilirubin 0.4 mg/dL (0.0-1.2) Aspartate Amino Transf (AST/SGOT) 14 U/L (5-40) Alanine Aminotransferase (ALT/SGPT) 7 U/L (3-33) Alkaline Phosphatase 101 U/L (35-104) C-Reactive Protein, Quantitative 0.9 mg/dL (< 0.5) H Pro-B-Type Natriuretic Peptide 958 pg/mL (0-125) H Total Protein 6.7 g/dL (6.6-8.7) Albumin 3.3 g/dL (3.5-5.2) L Globulin 3.4 g/dL Albumin/Globulin Ratio 0.9 (1.0-2.7) L Amylase Level 48 U/L (10-110) Lipase 28 U/L (< 60) Height (Feet): 5 Height (Inches): 1.00 Weight (Pounds): 230 General Appearance: no apparent distress, alert, obese Cardiovascular: normal rate Respiratory/Chest: no respiratory distress Abdominal Exam: normal bowel sounds, soft, tender Objective Procedure: US ABD Complete Indication:Abdominal pain Impression: Hepatomegaly with fatty infiltration. Procedure: CT Abdomen Pelvis WO Contrast Indication: Abdominal pain Impression: Tiny nonobstructive stone in the right kidney. Trace right pleural effusion and basilar atelectasis. Pacemaker Cardiomegaly and atherosclerotic vascular disease Small hiatal hernia. Diverticulosis of the colon Status post hysterectomy Smallwood catheter in good position POST-ENDOSCOPIC DIAGNOSES: 1. Normal upper endoscopy, status post random biopsies of the antrum. 2. Normal colonoscopy, status post random biopsy of the transverse colon. PROCEDURE: Upper gastrointestinal endoscopy with biopsy as well as colonoscopy with biopsy. SURGEON: Sera Chaves M.D. 03/17/2015 03:41 Rizwana Cotton N.P. October 13, 2016 10:38
[2016-10-13 11:32] VITALS: BP 100/51
--- NOTE | 2016-10-13 13:06 | Pulmonology Progress Note ---
Assessment/Plan Problems: (1) Hyperkalemia (2) Renal failure (3) Diabetes mellitus (4) Hemiparesis, right Assessment/Plan improving IV fluids kayexalate renal us noted renal electroltyes dvt prophylaxis start laxatives med/surg Subjective ROS Limited/Unobtainable: No Interval Events: constipated Allergies: Coded Allergies: No Known Allergies (Unverified , 03/12/15) Objective Last 24 Hour Vital Signs Date Time Temp Pulse Resp B/P Pulse Ox O2 Delivery O2 Flow Rate FiO2 10/13/16 11:32 97.7 79 18 100/51 100 Nasal Cannula 2.0 10/13/16 08:28 83 114/50 10/13/16 08:00 77 10/13/16 07:43 98.4 83 18 114/50 100 Nasal Cannula 2.0 10/13/16 06:39 Nasal Cannula 3.0 10/13/16 06:38 99 Nasal Cannula 3.0 10/13/16 04:39 73 10/13/16 04:04 97.7 68 20 115/47 Room Air 10/13/16 00:12 Room Air 10/13/16 00:00 71 10/12/16 21:00 73 102/55 10/12/16 20:00 71 10/12/16 20:00 97.0 72 20 103/55 99 Room Air 10/12/16 19:47 99 Nasal Cannula 3.0 32 10/12/16 19:47 Nasal Cannula 3.0 32 10/12/16 16:00 97.0 69 18 118/46 Nasal Cannula 2.0 100 10/12/16 16:00 63 Intake and Output 10/12/16 10/13/16 19:00 07:00 Intake Total 600 ml 500 ml Output Total 1300 ml Balance 600 ml -800 ml Intake Oral 100 ml IV Total 600 ml 400 ml Output Urine Total 1300 ml General Appearance: WD/WN Respiratory/Chest: chest wall non-tender, lungs clear Breasts: no masses Cardiovascular: normal peripheral pulses Abdomen: normal bowel sounds, soft, non tender Genitourinary: normal external genitalia Extremities: no cyanosis Skin: no lesions 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: 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, no motor/sensory deficits Laboratory Tests 10/12/16 18:00: Troponin I < 0.30 10/13/16 01:30: Urine Eosinophils Moderate 10/13/16 05:15: White Blood Count 10.4, Red Blood Count 3.78L, Hemoglobin 10.0L, Hematocrit 31.2L, Mean Corpuscular Volume 82, Mean Corpuscular Hemoglobin 26.4L, Mean Corpuscular Hemoglobin Concent 32.0, Red Cell Distribution Width 13.9, Platelet Count 219, Mean Platelet Volume 9.9, Neutrophils (%) (Auto) 67.0, Lymphocytes (% ) (Auto) 16.5L, Monocytes (%) (Auto) 11.2H, Eosinophils (%) (Auto) 4.5H, Basophils (%) (Auto) 0.9, Sodium Level 142, Potassium Level 4.7, Chloride Level 103, Carbon Dioxide Level 28, Anion Gap 11, Blood Urea Nitrogen 30H, Creatinine 1.2H, Estimat Glomerular Filtration Rate 44.5, Glucose Level 166H, Uric Acid 8.4H, Calcium Level 8.6, Phosphorus Level 3.9, Total Bilirubin 0.4, Aspartate Amino Transf (AST/SGOT) 14, Alanine Aminotransferase (ALT/SGPT) 7, Alkaline Phosphatase 101, C-Reactive Protein, Quantitative 0.9H, Pro-B-Type Natriuretic Peptide 958H, Total Protein 6.7, Albumin 3.3L, Globulin 3.4, Albumin/Globulin Ratio 0.9L, Amylase Level 48, Lipase 28 Current Medications Medications (Trade) Dose Ordered Sig/[place] Route PRN Reason Start Time Stop Time Status Last Admin Dose Admin Acetaminophen (Tylenol) 650 mg Q4H PRN ORAL fever 10/11/16 14:45 11/10/16 14:44 Atorvastatin Calcium (Lipitor) 40 mg BEDTIME ORAL 10/11/16 21:00 11/10/16 20:59 10/12/16 20:57 Carvedilol (Coreg) 3.125 mg EVERY 12 HOURS ORAL 10/11/16 21:00 11/10/16 20:59 10/13/16 08:28 Clopidogrel Bisulfate (Plavix) 75 mg DAILY ORAL 10/12/16 09:00 11/11/16 08:59 10/13/16 08:26 Dextrose (Dextrose 50%) STAT PRN IV Hypoglycemia 10/11/16 14:45 11/10/16 14:44 Docusate Sodium (Colace) 100 mg TID ORAL 10/12/16 18:00 11/11/16 17:59 10/13/16 12:01 Heparin Sodium (Porcine) (Heparin 5000 units/ml) 5,000 units EVERY 12 HOURS SUBQ 10/11/16 21:00 11/10/16 20:59 10/13/16 08:29 Insulin Aspart (NovoLOG) BEFORE MEALS AND HS SUBQ 10/11/16 16:30 11/10/16 16:29 10/13/16 12:00 Morphine Sulfate (Morphine Sulfate) 2 mg Q4H PRN IVP severe Pain (Pain Scale 7-10) 10/11/16 14:45 10/18/16 14:44 Nitroglycerin (Ntg) 0.4 mg Q5M X 3 DOSES PRN SL Prn Chest Pain 10/11/16 14:45 11/10/16 14:44 Ondansetron HCl (Zofran) 4 mg Q6H PRN IVP Nausea & Vomiting 10/11/16 14:45 11/10/16 14:44 Pantoprazole (Protonix) 40 mg EVERY 12 HOURS ORAL 10/11/16 21:00 11/10/16 20:59 10/13/16 08:26 Polyethylene Glycol (Miralax) 17 gm HSPRN PRN ORAL Constipation 10/11/16 14:45 11/10/16 14:44 Pregabalin (Lyrica) 50 mg BID ORAL 10/11/16 18:00 11/10/16 17:59 10/13/16 08:27 Temazepam (Restoril) 15 mg HSPRN PRN ORAL Insomnia 10/11/16 14:45 10/18/16 14:44 ERVIN COHN October 13, 2016 13:06
[2016-10-13] MEDS ORDERED: Lactulose 20gm/30ml UDC ORAL SCH (13:15)
[2016-10-13] MEDS ORDERED: Docusate 100mg cap ORAL SCH (13:15)
--- NOTE | 2016-10-13 15:09 | Diagnostic Imaging Report ---
APPROVED REPORT CPT Code: 71021 Present Symptoms Lower Extremity Pain: Bilateral Lower Extremity Edema: Bilateral Shortness of breath Comments: Hx CHF, pacemaker. BILATERAL: Imaging reveals a patent deep venous system bilaterally. There is no evidence of thrombus within the femoral, popliteal or tibial segments. The greater saphenous veins are also within normal limits. Doppler indicates normal spontaneous flow within these segments.
[2016-10-13] MEDS ORDERED: Nitroglycerin Subl 0.4mg tab (Bottle Of 25) SL PRN (15:45)
[2016-10-13 16:00] VITALS: BP 118/61
[2016-10-13] MEDS ORDERED: Morphine Sulfate 2mg/ml Inj IVP PRN (16:00)
[2016-10-13] MEDS ORDERED: Miralax 17gm pkt ORAL PRN (16:00)
[2016-10-13] MEDS: Docusate 100mg cap ORAL SCH (17:22)
[2016-10-13] MEDS: Lactulose 20gm/30ml UDC ORAL SCH (17:22)
--- NOTE | 2016-10-13 18:14 | Internal Med Progress Note ---
Subjective Date of Service: October 13, 2016 Physician Name Jovana Aguilar Attending Physician Brendan Wright MD Current Medications Medications (Trade) Dose Ordered Sig/[place] Route PRN Reason Start Time Stop Time Status Last Admin Dose Admin Acetaminophen (Tylenol) 650 mg Q4H PRN ORAL fever 10/13/16 16:00 11/12/16 15:59 Atorvastatin Calcium (Lipitor) 40 mg BEDTIME ORAL 10/13/16 21:00 11/12/16 20:59 Carvedilol (Coreg) 3.125 mg EVERY 12 HOURS ORAL 10/13/16 21:00 11/12/16 20:59 Clopidogrel Bisulfate (Plavix) 75 mg DAILY ORAL 10/14/16 09:00 11/13/16 08:59 Dextrose (Dextrose 50%) STAT PRN IV Hypoglycemia 10/13/16 16:00 11/12/16 15:59 Docusate Sodium (Colace) 100 mg THREE TIMES A DAY ORAL 10/13/16 18:00 11/12/16 17:59 Heparin Sodium (Porcine) (Heparin 5000 units/ml) 5,000 units EVERY 12 HOURS SUBQ 10/13/16 21:00 11/12/16 20:59 Insulin Aspart (NovoLOG) BEFORE MEALS AND HS SUBQ 10/13/16 16:30 11/12/16 16:29 10/13/16 17:22 Lactulose (Cephulac) 30 gm THREE TIMES A DAY ORAL 10/13/16 18:00 11/12/16 17:59 Mineral Oil (Fleet's Mineral Oil Enema) 133 ml EVERY OTHER DAY RECTAL 10/15/16 09:00 11/14/16 08:59 Morphine Sulfate (Morphine Sulfate) 2 mg Q4H PRN IVP severe Pain (Pain Scale 7-10) 10/13/16 16:00 10/20/16 15:59 Nitroglycerin (Ntg) 0.4 mg Q5M X 3 DOSES PRN SL Prn Chest Pain 10/13/16 15:45 11/12/16 15:44 Ondansetron HCl (Zofran) 4 mg Q6H PRN IVP Nausea & Vomiting 10/13/16 16:00 11/12/16 15:59 Pantoprazole (Protonix) 40 mg EVERY 12 HOURS ORAL 10/13/16 21:00 11/12/16 20:59 Polyethylene Glycol (Miralax) 17 gm BEDTIME ORAL 10/13/16 21:00 11/12/16 20:59 Polyethylene Glycol (Miralax) 17 gm HSPRN PRN ORAL Constipation 10/13/16 16:00 11/12/16 15:59 Pregabalin (Lyrica) 50 mg BID ORAL 10/13/16 18:00 11/12/16 17:59 10/13/16 17:20 Sennosides (Senokot) 8.6 mg DAILY ORAL 10/14/16 09:00 11/13/16 08:59 Temazepam (Restoril) 15 mg HSPRN PRN ORAL Insomnia 10/13/16 16:00 10/20/16 15:59 Allergies: Coded Allergies: No Known Allergies (Unverified , 03/12/15) ROS Limited/Unobtainable: No Constitutional: Reports: no symptoms HEENT: Reports: no symptoms Cardiovascular: Reports: no symptoms Respiratory: Reports: no symptoms Gastrointestinal/Abdominal: Reports: abdominal pain Genitourinary: Reports: no symptoms 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: Reports: no symptoms Subjective 71 YO F admitted with epigastric and left upper quadrant pain. Cover for Int [place]-Dr Wright. Tolerating low sodium diet. Objective Last Vital Signs Date Time Temp Pulse Resp B/P Pulse Ox O2 Delivery O2 Flow Rate FiO2 10/13/16 16:00 98.1 98 20 118/61 98 Nasal Cannula 2.0 10/12/16 19:47 32 Laboratory Tests Test 10/13/16 01:30 10/13/16 05:15 10/13/16 16:46 Urine Eosinophils Moderate White Blood Count 10.4 K/UL (4.8-10.8) Red Blood Count 3.78 M/UL (4.20-5.40) L Hemoglobin 10.0 G/DL (12.0-16.0) L Hematocrit 31.2 % (37.0-47.0) L Mean Corpuscular Volume 82 FL (80-99) Mean Corpuscular Hemoglobin 26.4 PG (27.0-31.0) L Mean Corpuscular Hemoglobin Concent 32.0 G/DL (32.0-36.0) Red Cell Distribution Width 13.9 % (11.6-14.8) Platelet Count 219 K/UL (150-450) Mean Platelet Volume 9.9 FL (6.5-10.1) Neutrophils (%) (Auto) 67.0 % (45.0-75.0) Lymphocytes (%) (Auto) 16.5 % (20.0-45.0) L Monocytes (%) (Auto) 11.2 % (1.0-10.0) H Eosinophils (%) (Auto) 4.5 % (0.0-3.0) H Basophils (%) (Auto) 0.9 % (0.0-2.0) Sodium Level 142 mEQ/L (135-145) Potassium Level 4.7 mEQ/L (3.4-4.9) Chloride Level 103 mEQ/L (98-107) Carbon Dioxide Level 28 mEQ/L (20-30) Anion Gap 11 (5-15) Blood Urea Nitrogen 30 mg/dL (7-23) H Creatinine 1.2 mg/dL (0.5-0.9) H Estimat Glomerular Filtration Rate 44.5 mL/min (>60) Glucose Level 166 mg/dL (74-106) H Uric Acid 8.4 mg/dL (3.0-7.5) H Calcium Level 8.6 mg/dL (8.6-10.2) Phosphorus Level 3.9 mg/dL (2.5-4.8) Total Bilirubin 0.4 mg/dL (0.0-1.2) Aspartate Amino Transf (AST/SGOT) 14 U/L (5-40) Alanine Aminotransferase (ALT/SGPT) 7 U/L (3-33) Alkaline Phosphatase 101 U/L (35-104) C-Reactive Protein, Quantitative 0.9 mg/dL (< 0.5) H Pro-B-Type Natriuretic Peptide 958 pg/mL (0-125) H Total Protein 6.7 g/dL (6.6-8.7) Albumin 3.3 g/dL (3.5-5.2) L Globulin 3.4 g/dL Albumin/Globulin Ratio 0.9 (1.0-2.7) L Amylase Level 48 U/L (10-110) Lipase 28 U/L (< 60) Stool Occult Blood Pending Intake and Output 10/12/16 10/13/16 19:00 07:00 Intake Total 600 ml 500 ml Output Total 1300 ml Balance 600 ml -800 ml Intake Oral 100 ml IV Total 600 ml 400 ml Output Urine Total 1300 ml Objective General: alert, cooperative, no distress, appears stated age Head: normocephalic, without obvious abnormality, atraumatic Eyes: conjunctivae/corneas clear. PERRL, EOM's intact Throat: lips, mucosa, and tongue normal. MMM Neck: supple, symmetrical, trachea midline, and no JVD Lungs: clear to auscultation bilaterally Heart: regular rate and rhythm, S1, S2 normal, no murmur, click, rub or gallop Abdomen: soft, tender, to palp epigastric and left upper quadrant; non- distended, bowel sounds decreased; no masses or organomegaly Extremities: extremities normal, atraumatic, no cyanosis or edema Pulses: 2+ and symmetric Skin: skin color, texture, turgor normal; no rashes or lesions Neurologic: right hemiparesis, no focal deficits Assessment/Plan Problem List: (1) Left upper quadrant pain (2) Abdominal pain Assessment & Plan: History of pancreatitis. CT = WNL. Conservative treatment per GI consult. (3) Epigastric pain (4) Renal failure (5) COPD (chronic obstructive pulmonary disease) (6) Cardiomyopathy (7) Diabetes mellitus Assessment & Plan: Cont novolog sliding scale. (8) HTN (hypertension) Assessment & Plan: Continue coreg. (9) Cerebral vascular disease (10) AICD (automatic cardioverter/defibrillator) present (11) Hemiparesis, right (12) LBBB (left bundle branch block) (13) Iron deficiency anemia (14) Hyperkalemia Assessment & Plan: Oral Kayexalate. Status: tolerating diet, not improved JOVANA AGUILAR October 13, 2016 18:14
[2016-10-13 20:00] VITALS: BP 116/63
[2016-10-13] MEDS: Miralax 17gm pkt ORAL SCH (21:00)
[2016-10-13] MEDS ORDERED: Miralax 17gm pkt ORAL SCH (21:00)
[2016-10-14] VITALS: BP 120/66
[2016-10-14 04:00] VITALS: BP 119/55
[2016-10-14] MEDS: NovoLOG Insulin Flexpen SUBQ SCH ×4 (06:38→21:42)
[2016-10-14 07:27] LABS: BASOPHILS % (AUTO) 0.8 % (0.0-2.0); LYMPHOCYTES % (AUTO) 21.5 % (20.0-45.0); MEAN CORPUSCULAR HEMOGLOBIN 26.2 PG (27.0-31.0); MEAN CORPUSCULAR HGB CONC 31.6 G/DL (32.0-36.0); MEAN CORPUSCULAR VOLUME 83 FL (80-99); MEAN PLATELET VOLUME 9.3 FL (6.5-10.1); MONOCYTES % (AUTO) 11.7 % (1.0-10.0); NEUTROPHILS % (AUTO) 61.1 % (45.0-75.0); PLATELET COUNT 207 K/UL (150-450); RED BLOOD COUNT 3.76 M/UL (4.20-5.40); RED CELL DISTRIBUTION WIDTH 14.1 % (11.6-14.8); WHITE BLOOD COUNT 10.4 K/UL (4.8-10.8)
[2016-10-14 07:35] VITALS: BP 123/55
[2016-10-14 07:47] LABS: CALCIUM 8.8 mg/dL (8.6-10.2); CREATININE 1.2 mg/dL (0.5-0.9); GLOMERULAR FILTRATION RATE 44.5 mL/min (>60); POTASSIUM 4.6 mEQ/L (3.4-4.9)
[2016-10-14] MEDS: Heparin 5000 units/ml inj SUBQ SCH ×2 (09:00→21:43)
[2016-10-14] MEDS: Lyrica 50mg cap ORAL SCH ×2 (09:33→17:16)
[2016-10-14] MEDS: Docusate 100mg cap ORAL SCH ×3 (09:35→17:06)
[2016-10-14] MEDS: Lactulose 20gm/30ml UDC ORAL SCH ×3 (09:36→17:06)
--- NOTE | 2016-10-14 10:14 | GI Progress Note ---
Assessment/Plan Problems: (1) High triglycerides ICD Codes: E78.1 - Pure hyperglyceridemia SNOMED: 363679565 (2) Steatosis of liver ICD Codes: K76.0 - Fatty (change of) liver, not elsewhere classified SNOMED: 477537374 (3) Obesity ICD Codes: E66.9 - Obesity, unspecified SNOMED: 871039581 (4) Anemia ICD Codes: D64.9 - Anemia, unspecified SNOMED: 027605750 (5) Iron deficiency anemia ICD Codes: D50.9 - Iron deficiency anemia, unspecified SNOMED: 06593235 (6) Acid reflux ICD Codes: K21.9 - Gastro-esophageal reflux disease without esophagitis SNOMED: 770600475 (7) Hypoalbuminemia ICD Codes: E88.09 - Other disorders of plasma-protein metabolism, not elsewhere classified SNOMED: 714001279 (8) Abdominal pain ICD Codes: R10.9 - Unspecified abdominal pain SNOMED: 76872524 Qualifiers: Qualified Codes: R10.84 - Generalized abdominal pain Status: stable Status Narrative Discussed with Dr. Leal. Assessment/Plan abd U/S reviewed >> Hepatomegaly with fatty infiltration. AP CT reviewed >> Pacemaker, see full report. Lipase negative OB stool negative s/p normal EGD/colonoscopy in 2014 iron deficiency >> venofer EF - 20% stable H&H ok for DC per GI standpoint symptomatic treatment at this time pain mgmt adv to low sodium diet H2B bowel regime fu labs Subjective Subjective abdominal pain resolved pt wants to go home Objective Last 24 Hour Vital Signs Date Time Temp Pulse Resp B/P Pulse Ox O2 Delivery O2 Flow Rate FiO2 10/14/16 09:34 79 123/55 10/14/16 07:35 97.9 79 15 123/55 97 Room Air 10/14/16 04:00 97.0 79 20 119/55 98 Nasal Cannula 2.0 10/14/16 00:00 99.1 84 20 120/66 99 Nasal Cannula 2.0 10/13/16 21:11 98 118/61 10/13/16 20:00 98.1 113 20 116/63 96 Nasal Cannula 2.0 10/13/16 19:39 99 Nasal Cannula 2.0 28 10/13/16 19:39 Nasal Cannula 2.0 28 10/13/16 16:00 98.1 98 20 118/61 98 Nasal Cannula 2.0 10/13/16 11:32 97.7 79 18 100/51 100 Nasal Cannula 2.0 Intake and Output 10/13/16 10/14/16 19:00 07:00 Intake Total 720 ml Output Total 950 ml 870 ml Balance -230 ml -870 ml Intake Oral 720 ml Output Urine Total 950 ml 870 ml Laboratory Tests Test 10/13/16 16:46 10/14/16 06:30 Stool Occult Blood Negative (NEGATIVE) White Blood Count 10.4 K/UL (4.8-10.8) Red Blood Count 3.76 M/UL (4.20-5.40) L Hemoglobin 9.8 G/DL (12.0-16.0) L Hematocrit 31.2 % (37.0-47.0) L Mean Corpuscular Volume 83 FL (80-99) Mean Corpuscular Hemoglobin 26.2 PG (27.0-31.0) L Mean Corpuscular Hemoglobin Concent 31.6 G/DL (32.0-36.0) L Red Cell Distribution Width 14.1 % (11.6-14.8) Platelet Count 207 K/UL (150-450) Mean Platelet Volume 9.3 FL (6.5-10.1) Neutrophils (%) (Auto) 61.1 % (45.0-75.0) Lymphocytes (%) (Auto) 21.5 % (20.0-45.0) Monocytes (%) (Auto) 11.7 % (1.0-10.0) H Eosinophils (%) (Auto) 5.0 % (0.0-3.0) H Basophils (%) (Auto) 0.8 % (0.0-2.0) Urine Eosinophils Few Sodium Level 145 mEQ/L (135-145) Potassium Level 4.6 mEQ/L (3.4-4.9) Chloride Level 105 mEQ/L (98-107) Carbon Dioxide Level 30 mEQ/L (20-30) Anion Gap 10 (5-15) Blood Urea Nitrogen 17 mg/dL (7-23) Creatinine 1.2 mg/dL (0.5-0.9) H Estimat Glomerular Filtration Rate 44.5 mL/min (>60) Glucose Level 172 mg/dL (74-106) H Calcium Level 8.8 mg/dL (8.6-10.2) Height (Feet): 5 Height (Inches): 1.00 Weight (Pounds): 230 General Appearance: no apparent distress, alert, obese Cardiovascular: normal rate Respiratory/Chest: normal breath sounds, no respiratory distress Abdominal Exam: soft Extremities: normal range of motion Objective Procedure: US ABD Complete Indication:Abdominal pain Impression: Hepatomegaly with fatty infiltration. Procedure: CT Abdomen Pelvis WO Contrast Indication: Abdominal pain Impression: Tiny nonobstructive stone in the right kidney. Trace right pleural effusion and basilar atelectasis. Pacemaker Cardiomegaly and atherosclerotic vascular disease Small hiatal hernia. Diverticulosis of the colon Status post hysterectomy Smallwood catheter in good position POST-ENDOSCOPIC DIAGNOSES: 1. Normal upper endoscopy, status post random biopsies of the antrum. 2. Normal colonoscopy, status post random biopsy of the transverse colon. PROCEDURE: Upper gastrointestinal endoscopy with biopsy as well as colonoscopy with biopsy. SURGEON: Sera Chaves M.D. 03/17/2015 03:41 Rizwana Cotton N.P. October 14, 2016 10:14
[2016-10-14 11:20] VITALS: BP 134/63
--- NOTE | 2016-10-14 13:56 | General Progress Note ---
Assessment/Plan Status: stable - from renal stand Assessment/Plan status: acute renal failure : Diuretics- Julio inhibitors HyperKalemia Anemia CardioMyopathy- Pacer Obesity Slow hydrate, arrington monitor I&O gastric support Avoid Nephrotoxics Anemia mcclellan per orders Subjective ROS Limited/Unobtainable: No Constitutional: Reports: malaise Allergies: Coded Allergies: No Known Allergies (Unverified , 03/12/15) Objective Last 24 Hour Vital Signs Date Time Temp Pulse Resp B/P Pulse Ox O2 Delivery O2 Flow Rate FiO2 10/14/16 11:20 98.1 72 15 134/63 99 Room Air 10/14/16 09:52 Nasal Cannula 2.0 28 10/14/16 09:52 98 Nasal Cannula 2.0 28 10/14/16 09:34 79 123/55 10/14/16 07:35 97.9 79 15 123/55 97 Room Air 10/14/16 04:00 97.0 79 20 119/55 98 Nasal Cannula 2.0 10/14/16 00:00 99.1 84 20 120/66 99 Nasal Cannula 2.0 10/13/16 21:11 98 118/61 10/13/16 20:00 98.1 113 20 116/63 96 Nasal Cannula 2.0 10/13/16 19:39 99 Nasal Cannula 2.0 28 10/13/16 19:39 Nasal Cannula 2.0 28 10/13/16 16:00 98.1 98 20 118/61 98 Nasal Cannula 2.0 Intake and Output 10/13/16 10/14/16 19:00 07:00 Intake Total 720 ml Output Total 950 ml 870 ml Balance -230 ml -870 ml Intake Oral 720 ml Output Urine Total 950 ml 870 ml Laboratory Tests 10/13/16 16:46: Stool Occult Blood Negative 10/14/16 06:30: White Blood Count 10.4, Red Blood Count 3.76L, Hemoglobin 9.8L, Hematocrit 31.2L , Mean Corpuscular Volume 83, Mean Corpuscular Hemoglobin 26.2L, Mean Corpuscular Hemoglobin Concent 31.6L, Red Cell Distribution Width 14.1, Platelet Count 207, Mean Platelet Volume 9.3, Neutrophils (%) (Auto) 61.1, Lymphocytes (%) (Auto) 21.5, Monocytes (%) (Auto) 11.7H, Eosinophils (%) (Auto) 5.0H, Basophils (%) (Auto) 0.8, Urine Eosinophils Few, Sodium Level 145, Potassium Level 4.6, Chloride Level 105, Carbon Dioxide Level 30, Anion Gap 10, Blood Urea Nitrogen 17, Creatinine 1.2H, Estimat Glomerular Filtration Rate 44.5 , Glucose Level 172H, Calcium Level 8.8 Height (Feet): 5 Height (Inches): 1.00 Weight (Pounds): 230 General Appearance: no apparent distress Objective no change in PE VALERIO SOTO October 14, 2016 13:56
--- NOTE | 2016-10-14 14:30 | Wound Care Consultation ---
Wound Assessment Wound Assessment : Wound Present on Admission: Yes New Wound: No Status Change of Wound: No Wound Location Body Site Modif: mid Wound Location Body Site: coccyx Wound Type: pressure ulcer Meghan Test: Does not Meghan Pressure Ulcer Stage: IV/unstageable Wound Thickness: Full Thickness Wound Length: 2.0 Wound Width: 1.5 Wound Depth: utd Percent of Wound Bed Yellow/Wh: 100 Wound Drainage Amount: Scant Wound Drainage Odor: None/Absent Tissue Surrounding Wound: Macerated Wound General Appearance: Reddened - wound bed with yellow thick slough Wound Comment #1 Coccyx stage IV/unstageable pressure ulcer Recommendation -Coccyx pressure ulcer Cleanse with saline pat dry apply Triad cream cover [place] silicone PRN soiled/dislodged -Low air loss overlay mattress -Keep clean and dry -Turn and reposition -Optimize nutrition -Offload both heels -Heel protector on both heels -Assess and f/u accordingly for any changes ALEJANDRA DIAZ RN October 14, 2016 14:30
[2016-10-14 15:32] VITALS: BP 129/61
--- NOTE | 2016-10-14 19:14 | Internal Med Progress Note ---
Subjective Date of Service: October 14, 2016 Physician Name Jovana Aguilar Attending Physician Brendan Wright MD Current Medications Medications (Trade) Dose Ordered Sig/[place] Route PRN Reason Start Time Stop Time Status Last Admin Dose Admin Acetaminophen (Tylenol) 650 mg Q4H PRN ORAL fever 10/13/16 16:00 11/12/16 15:59 Atorvastatin Calcium (Lipitor) 40 mg BEDTIME ORAL 10/13/16 21:00 11/12/16 20:59 10/13/16 21:12 Carvedilol (Coreg) 3.125 mg EVERY 12 HOURS ORAL 10/13/16 21:00 11/12/16 20:59 10/14/16 09:34 Clopidogrel Bisulfate (Plavix) 75 mg DAILY ORAL 10/14/16 09:00 11/13/16 08:59 10/14/16 09:34 Dextrose (Dextrose 50%) STAT PRN IV Hypoglycemia 10/13/16 16:00 11/12/16 15:59 Docusate Sodium (Colace) 100 mg THREE TIMES A DAY ORAL 10/13/16 18:00 11/12/16 17:59 Heparin Sodium (Porcine) (Heparin 5000 units/ml) 5,000 units EVERY 12 HOURS SUBQ 10/13/16 21:00 11/12/16 20:59 10/13/16 21:12 Insulin Aspart (NovoLOG) BEFORE MEALS AND HS SUBQ 10/13/16 16:30 11/12/16 16:29 10/14/16 17:16 Lactulose (Cephulac) 30 gm THREE TIMES A DAY ORAL 10/13/16 18:00 11/12/16 17:59 Mineral Oil (Fleet's Mineral Oil Enema) 133 ml EVERY OTHER DAY RECTAL 10/15/16 09:00 11/14/16 08:59 Morphine Sulfate (Morphine Sulfate) 2 mg Q4H PRN IVP severe Pain (Pain Scale 7-10) 10/13/16 16:00 10/20/16 15:59 Nitroglycerin (Ntg) 0.4 mg Q5M X 3 DOSES PRN SL Prn Chest Pain 10/13/16 15:45 11/12/16 15:44 Ondansetron HCl (Zofran) 4 mg Q6H PRN IVP Nausea & Vomiting 10/13/16 16:00 11/12/16 15:59 Pantoprazole (Protonix) 40 mg EVERY 12 HOURS ORAL 10/13/16 21:00 11/12/16 20:59 10/14/16 09:33 Polyethylene Glycol (Miralax) 17 gm BEDTIME ORAL 10/13/16 21:00 11/12/16 20:59 Polyethylene Glycol (Miralax) 17 gm HSPRN PRN ORAL Constipation 10/13/16 16:00 11/12/16 15:59 Pregabalin (Lyrica) 50 mg BID ORAL 10/13/16 18:00 11/12/16 17:59 10/14/16 17:16 Sennosides (Senokot) 8.6 mg DAILY ORAL 10/14/16 09:00 11/13/16 08:59 Temazepam (Restoril) 15 mg HSPRN PRN ORAL Insomnia 10/13/16 16:00 10/20/16 15:59 Allergies: Coded Allergies: No Known Allergies (Unverified , 03/12/15) ROS Limited/Unobtainable: No Constitutional: Reports: no symptoms HEENT: Reports: no symptoms Cardiovascular: Reports: no symptoms Respiratory: Reports: no symptoms Gastrointestinal/Abdominal: Reports: abdominal pain Genitourinary: Reports: no symptoms 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: Reports: no symptoms Subjective 71 YO F admitted with epigastric and left upper quadrant pain. Cover for [facility] [place]-Dr Wright. Tolerating low sodium diet. Objective Last Vital Signs Date Time Temp Pulse Resp B/P Pulse Ox O2 Delivery O2 Flow Rate FiO2 10/14/16 15:32 97.7 73 14 129/61 93 Room Air 10/14/16 09:52 2.0 28 Laboratory Tests Test 10/14/16 06:30 White Blood Count 10.4 K/UL (4.8-10.8) Red Blood Count 3.76 M/UL (4.20-5.40) L Hemoglobin 9.8 G/DL (12.0-16.0) L Hematocrit 31.2 % (37.0-47.0) L Mean Corpuscular Volume 83 FL (80-99) Mean Corpuscular Hemoglobin 26.2 PG (27.0-31.0) L Mean Corpuscular Hemoglobin Concent 31.6 G/DL (32.0-36.0) L Red Cell Distribution Width 14.1 % (11.6-14.8) Platelet Count 207 K/UL (150-450) Mean Platelet Volume 9.3 FL (6.5-10.1) Neutrophils (%) (Auto) 61.1 % (45.0-75.0) Lymphocytes (%) (Auto) 21.5 % (20.0-45.0) Monocytes (%) (Auto) 11.7 % (1.0-10.0) H Eosinophils (%) (Auto) 5.0 % (0.0-3.0) H Basophils (%) (Auto) 0.8 % (0.0-2.0) Urine Eosinophils Few Sodium Level 145 mEQ/L (135-145) Potassium Level 4.6 mEQ/L (3.4-4.9) Chloride Level 105 mEQ/L (98-107) Carbon Dioxide Level 30 mEQ/L (20-30) Anion Gap 10 (5-15) Blood Urea Nitrogen 17 mg/dL (7-23) Creatinine 1.2 mg/dL (0.5-0.9) H Estimat Glomerular Filtration Rate 44.5 mL/min (>60) Glucose Level 172 mg/dL (74-106) H Calcium Level 8.8 mg/dL (8.6-10.2) Intake and Output 10/13/16 10/14/16 19:00 07:00 Intake Total 720 ml Output Total 950 ml 870 ml Balance -230 ml -870 ml Intake Oral 720 ml Output Urine Total 950 ml 870 ml Objective General: alert, cooperative, no distress, appears stated age Head: normocephalic, without obvious abnormality, atraumatic Eyes: conjunctivae/corneas clear. PERRL, EOM's intact Throat: lips, mucosa, and tongue normal. MMM Neck: supple, symmetrical, trachea midline, and no JVD Lungs: clear to auscultation bilaterally Heart: regular rate and rhythm, S1, S2 normal, no murmur, click, rub or gallop Abdomen: soft, tender, to palp epigastric and left upper quadrant; non- distended, bowel sounds decreased; no masses or organomegaly Extremities: extremities normal, atraumatic, no cyanosis or edema Pulses: 2+ and symmetric Skin: skin color, texture, turgor normal; no rashes or lesions Neurologic: right hemiparesis, no focal deficits Assessment/Plan Problem List: (1) Left upper quadrant pain (2) Abdominal pain Assessment & Plan: History of pancreatitis. CT = WNL. Conservative treatment per GI consult. (3) Epigastric pain (4) Renal failure (5) COPD (chronic obstructive pulmonary disease) (6) Cardiomyopathy (7) Diabetes mellitus Assessment & Plan: Cont novolog sliding scale. (8) HTN (hypertension) Assessment & Plan: Continue coreg. (9) Cerebral vascular disease (10) AICD (automatic cardioverter/defibrillator) present (11) Hemiparesis, right (12) LBBB (left bundle branch block) (13) Iron deficiency anemia (14) Hyperkalemia Assessment & Plan: Oral Kayexalate. Status: stable Assessment/Plan Discharge planning. JOVANA AGUILAR October 14, 2016 19:14
[2016-10-14 20:00] VITALS: BP 118/58
--- NOTE | 2016-10-14 20:23 | Pulmonology Progress Note ---
Assessment/Plan Problems: (1) Renal failure (2) Hyperkalemia (3) EF 25% (4) AICD (automatic cardioverter/defibrillator) present (5) Hemiparesis, right (6) Diabetes mellitus Assessment/Plan advance diet improving IV fluids kayexalate renal us noted renal electroltyes dvt prophylaxis start laxatives med/surg Subjective ROS Limited/Unobtainable: No Interval Events: feeling better Allergies: Coded Allergies: No Known Allergies (Unverified , 03/12/15) Objective Last 24 Hour Vital Signs Date Time Temp Pulse Resp B/P Pulse Ox O2 Delivery O2 Flow Rate FiO2 10/14/16 20:00 97.9 74 20 118/58 95 Room Air 10/14/16 19:52 98 Nasal Cannula 2.0 28 10/14/16 19:52 Nasal Cannula 2.0 28 10/14/16 15:32 97.7 73 14 129/61 93 Room Air 10/14/16 11:20 98.1 72 15 134/63 99 Room Air 10/14/16 09:52 Nasal Cannula 2.0 28 10/14/16 09:52 98 Nasal Cannula 2.0 28 10/14/16 09:34 79 123/55 10/14/16 07:35 97.9 79 15 123/55 97 Room Air 10/14/16 04:00 97.0 79 20 119/55 98 Nasal Cannula 2.0 10/14/16 00:00 99.1 84 20 120/66 99 Nasal Cannula 2.0 10/13/16 21:11 98 118/61 Intake and Output 10/13/16 10/14/16 19:00 07:00 Intake Total 720 ml Output Total 950 ml 870 ml Balance -230 ml -870 ml Intake Oral 720 ml Output Urine Total 950 ml 870 ml General Appearance: WD/WN, no acute distress Respiratory/Chest: chest wall non-tender, lungs clear Breasts: no masses Cardiovascular: normal peripheral pulses Abdomen: normal bowel sounds, soft, non tender Genitourinary: normal external genitalia Skin: no rash 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: 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 Lymphatic: no neck adenopathy Laboratory Tests 10/14/16 06:30: White Blood Count 10.4, Red Blood Count 3.76L, Hemoglobin 9.8L, Hematocrit 31.2L , Mean Corpuscular Volume 83, Mean Corpuscular Hemoglobin 26.2L, Mean Corpuscular Hemoglobin Concent 31.6L, Red Cell Distribution Width 14.1, Platelet Count 207, Mean Platelet Volume 9.3, Neutrophils (%) (Auto) 61.1, Lymphocytes (%) (Auto) 21.5, Monocytes (%) (Auto) 11.7H, Eosinophils (%) (Auto) 5.0H, Basophils (%) (Auto) 0.8, Urine Eosinophils Few, Sodium Level 145, Potassium Level 4.6, Chloride Level 105, Carbon Dioxide Level 30, Anion Gap 10, Blood Urea Nitrogen 17, Creatinine 1.2H, Estimat Glomerular Filtration Rate 44.5 , Glucose Level 172H, Calcium Level 8.8 Current Medications Medications (Trade) Dose Ordered Sig/[place] Route PRN Reason Start Time Stop Time Status Last Admin Dose Admin Acetaminophen (Tylenol) 650 mg Q4H PRN ORAL fever 10/13/16 16:00 11/12/16 15:59 Atorvastatin Calcium (Lipitor) 40 mg BEDTIME ORAL 10/13/16 21:00 11/12/16 20:59 10/13/16 21:12 Carvedilol (Coreg) 3.125 mg EVERY 12 HOURS ORAL 10/13/16 21:00 11/12/16 20:59 10/14/16 09:34 Clopidogrel Bisulfate (Plavix) 75 mg DAILY ORAL 10/14/16 09:00 11/13/16 08:59 10/14/16 09:34 Dextrose (Dextrose 50%) STAT PRN IV Hypoglycemia 10/13/16 16:00 11/12/16 15:59 Docusate Sodium (Colace) 100 mg THREE TIMES A DAY ORAL 10/13/16 18:00 11/12/16 17:59 Heparin Sodium (Porcine) (Heparin 5000 units/ml) 5,000 units EVERY 12 HOURS SUBQ 10/13/16 21:00 11/12/16 20:59 10/13/16 21:12 Insulin Aspart (NovoLOG) BEFORE MEALS AND HS SUBQ 10/13/16 16:30 11/12/16 16:29 10/14/16 17:16 Lactulose (Cephulac) 30 gm THREE TIMES A DAY ORAL 10/13/16 18:00 11/12/16 17:59 Mineral Oil (Fleet's Mineral Oil Enema) 133 ml EVERY OTHER DAY RECTAL 10/15/16 09:00 11/14/16 08:59 Morphine Sulfate (Morphine Sulfate) 2 mg Q4H PRN IVP severe Pain (Pain Scale 7-10) 10/13/16 16:00 10/20/16 15:59 Nitroglycerin (Ntg) 0.4 mg Q5M X 3 DOSES PRN SL Prn Chest Pain 10/13/16 15:45 11/12/16 15:44 Ondansetron HCl (Zofran) 4 mg Q6H PRN IVP Nausea & Vomiting 10/13/16 16:00 11/12/16 15:59 Pantoprazole (Protonix) 40 mg EVERY 12 HOURS ORAL 10/13/16 21:00 11/12/16 20:59 10/14/16 09:33 Polyethylene Glycol (Miralax) 17 gm BEDTIME ORAL 10/13/16 21:00 11/12/16 20:59 Polyethylene Glycol (Miralax) 17 gm HSPRN PRN ORAL Constipation 10/13/16 16:00 11/12/16 15:59 Pregabalin (Lyrica) 50 mg BID ORAL 10/13/16 18:00 11/12/16 17:59 10/14/16 17:16 Sennosides (Senokot) 8.6 mg DAILY ORAL 10/14/16 09:00 11/13/16 08:59 Temazepam (Restoril) 15 mg HSPRN PRN ORAL Insomnia 10/13/16 16:00 10/20/16 15:59 ERVIN COHN October 14, 2016 20:23
[2016-10-14] MEDS: Miralax 17gm pkt ORAL SCH (21:00)
[2016-10-15] VITALS: BP 122/55
[2016-10-15 04:00] VITALS: BP 121/55
[2016-10-15] MEDS: NovoLOG Insulin Flexpen SUBQ SCH ×4 (06:14→21:03)
[2016-10-15 07:11] LABS: CALCIUM 8.9 mg/dL (8.6-10.2); CREATININE 1.3 mg/dL (0.5-0.9); GLOMERULAR FILTRATION RATE 40.6 mL/min (>60); POTASSIUM 4.7 mEQ/L (3.4-4.9)
[2016-10-15 07:13] LABS: BASOPHILS % (AUTO) 1.1 % (0.0-2.0); EOSINOPHILS % (AUTO) 4.9 % (0.0-3.0); LYMPHOCYTES % (AUTO) 23.8 % (20.0-45.0); MEAN CORPUSCULAR HEMOGLOBIN 26.3 PG (27.0-31.0); MEAN CORPUSCULAR HGB CONC 31.2 G/DL (32.0-36.0); MEAN CORPUSCULAR VOLUME 84 FL (80-99); MEAN PLATELET VOLUME 9.5 FL (6.5-10.1); MONOCYTES % (AUTO) 10.1 % (1.0-10.0); NEUTROPHILS % (AUTO) 60.1 % (45.0-75.0); PLATELET COUNT 200 K/UL (150-450); RED BLOOD COUNT 3.67 M/UL (4.20-5.40)
[2016-10-15 08:07] VITALS: BP 127/61
[2016-10-15] MEDS ORDERED: Fleet's Mineral Oil Enema RECTAL SCH ×2 (09:00)
[2016-10-15] MEDS: Docusate 100mg cap ORAL SCH ×3 (09:39→17:44)
[2016-10-15] MEDS: Lactulose 20gm/30ml UDC ORAL SCH ×3 (09:39→17:44)
[2016-10-15] MEDS: Lyrica 50mg cap ORAL SCH ×2 (09:40→17:39)
[2016-10-15] MEDS: Heparin 5000 units/ml inj SUBQ SCH ×2 (09:41→20:56)
--- NOTE | 2016-10-15 10:35 | General Progress Note ---
Assessment/Plan Status: stable Assessment/Plan status: acute renal failure : Diuretics- Julio inhibitors HyperKalemia Anemia CardioMyopathy- Pacer Obesity Plan: Improved- Cr 1.3 GERTRUDIS [place] planning Subjective ROS Limited/Unobtainable: No Allergies: Coded Allergies: No Known Allergies (Unverified , 03/12/15) Objective Last 24 Hour Vital Signs Date Time Temp Pulse Resp B/P Pulse Ox O2 Delivery O2 Flow Rate FiO2 10/15/16 09:41 81 127/61 10/15/16 08:16 97 Nasal Cannula 2.0 28 10/15/16 08:16 Nasal Cannula 2.0 28 10/15/16 08:07 97.7 81 21 127/61 98 Nasal Cannula 2.0 10/15/16 04:00 98.2 72 19 121/55 95 Room Air 10/15/16 00:00 97.5 67 20 122/55 97 Nasal Cannula 2.0 10/14/16 21:35 74 118/58 10/14/16 20:00 97.9 74 20 118/58 95 Room Air 10/14/16 19:52 98 Nasal Cannula 2.0 28 10/14/16 19:52 Nasal Cannula 2.0 28 10/14/16 15:32 97.7 73 14 129/61 93 Room Air 10/14/16 11:20 98.1 72 15 134/63 99 Room Air Intake and Output 10/14/16 10/15/16 19:00 07:00 Intake Total 1000 ml Output Total 450 ml 1000 ml Balance 550 ml -1000 ml Intake Oral 1000 ml Output Urine Total 450 ml 1000 ml # Bowel Movements 1 1 Laboratory Tests 10/15/16 05:35: White Blood Count 10.0, Red Blood Count 3.67L, Hemoglobin 9.7L, Hematocrit 31.0L , Mean Corpuscular Volume 84, Mean Corpuscular Hemoglobin 26.3L, Mean Corpuscular Hemoglobin Concent 31.2L, Red Cell Distribution Width 14.0, Platelet Count 200, Mean Platelet Volume 9.5, Neutrophils (%) (Auto) 60.1, Lymphocytes (%) (Auto) 23.8, Monocytes (%) (Auto) 10.1H, Eosinophils (%) (Auto) 4.9H, Basophils (%) (Auto) 1.1, Sodium Level 142, Potassium Level 4.7, Chloride Level 104, Carbon Dioxide Level 29, Anion Gap 9, Blood Urea Nitrogen 19, Creatinine 1.3H, Estimat Glomerular Filtration Rate 40.6, Glucose Level 188H, Calcium Level 8.9 Height (Feet): 5 Height (Inches): 1.00 Weight (Pounds): 230 General Appearance: no apparent distress Objective no change in PE VALERIO SOTO October 15, 2016 10:35
[2016-10-15 11:30] VITALS: BP 106/48
--- NOTE | 2016-10-15 15:44 | Internal Med Progress Note ---
Subjective Date of Service: October 15, 2016 Physician Name Jovana Li Attending Physician Brendan Wright MD Current Medications Medications (Trade) Dose Ordered Sig/[place] Route PRN Reason Start Time Stop Time Status Last Admin Dose Admin Acetaminophen (Tylenol) 650 mg Q4H PRN ORAL fever 10/13/16 16:00 11/12/16 15:59 Atorvastatin Calcium (Lipitor) 40 mg BEDTIME ORAL 10/13/16 21:00 11/12/16 20:59 10/14/16 21:35 Carvedilol (Coreg) 3.125 mg EVERY 12 HOURS ORAL 10/13/16 21:00 11/12/16 20:59 10/15/16 09:41 Clopidogrel Bisulfate (Plavix) 75 mg DAILY ORAL 10/14/16 09:00 11/13/16 08:59 10/15/16 09:40 Dextrose (Dextrose 50%) STAT PRN IV Hypoglycemia 10/13/16 16:00 11/12/16 15:59 Docusate Sodium (Colace) 100 mg THREE TIMES A DAY ORAL 10/13/16 18:00 11/12/16 17:59 Heparin Sodium (Porcine) (Heparin 5000 units/ml) 5,000 units EVERY 12 HOURS SUBQ 10/13/16 21:00 11/12/16 20:59 10/15/16 09:41 Insulin Aspart (NovoLOG) BEFORE MEALS AND HS SUBQ 10/13/16 16:30 11/12/16 16:29 10/15/16 11:52 Lactulose (Cephulac) 30 gm THREE TIMES A DAY ORAL 10/13/16 18:00 11/12/16 17:59 Mineral Oil (Fleet's Mineral Oil Enema) 133 ml EVERY OTHER DAY RECTAL 10/15/16 09:00 11/14/16 08:59 Morphine Sulfate (Morphine Sulfate) 2 mg Q4H PRN IVP severe Pain (Pain Scale 7-10) 10/13/16 16:00 10/20/16 15:59 Nitroglycerin (Ntg) 0.4 mg Q5M X 3 DOSES PRN SL Prn Chest Pain 10/13/16 15:45 11/12/16 15:44 Ondansetron HCl (Zofran) 4 mg Q6H PRN IVP Nausea & Vomiting 10/13/16 16:00 11/12/16 15:59 Pantoprazole (Protonix) 40 mg EVERY 12 HOURS ORAL 10/13/16 21:00 11/12/16 20:59 10/15/16 09:40 Polyethylene Glycol (Miralax) 17 gm BEDTIME ORAL 10/13/16 21:00 11/12/16 20:59 Polyethylene Glycol (Miralax) 17 gm HSPRN PRN ORAL Constipation 10/13/16 16:00 11/12/16 15:59 Pregabalin (Lyrica) 50 mg BID ORAL 10/13/16 18:00 11/12/16 17:59 10/15/16 09:40 Sennosides (Senokot) 8.6 mg DAILY ORAL 10/14/16 09:00 11/13/16 08:59 Temazepam (Restoril) 15 mg HSPRN PRN ORAL Insomnia 10/13/16 16:00 10/20/16 15:59 Allergies: Coded Allergies: No Known Allergies (Unverified , 03/12/15) ROS Limited/Unobtainable: No Constitutional: Reports: no symptoms HEENT: Reports: no symptoms Cardiovascular: Reports: no symptoms Respiratory: Reports: no symptoms Gastrointestinal/Abdominal: Reports: abdominal pain Genitourinary: Reports: no symptoms 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: Reports: no symptoms Subjective 71 YO F admitted with epigastric and left upper quadrant pain. Cover for Int [place]-Dr Wright. Tolerating low sodium diet. Objective Last Vital Signs Date Time Temp Pulse Resp B/P Pulse Ox O2 Delivery O2 Flow Rate FiO2 10/15/16 11:30 97.6 74 20 106/48 97 Nasal Cannula 2.0 10/15/16 08:16 28 Laboratory Tests Test 10/15/16 05:35 White Blood Count 10.0 K/UL (4.8-10.8) Red Blood Count 3.67 M/UL (4.20-5.40) L Hemoglobin 9.7 G/DL (12.0-16.0) L Hematocrit 31.0 % (37.0-47.0) L Mean Corpuscular Volume 84 FL (80-99) Mean Corpuscular Hemoglobin 26.3 PG (27.0-31.0) L Mean Corpuscular Hemoglobin Concent 31.2 G/DL (32.0-36.0) L Red Cell Distribution Width 14.0 % (11.6-14.8) Platelet Count 200 K/UL (150-450) Mean Platelet Volume 9.5 FL (6.5-10.1) Neutrophils (%) (Auto) 60.1 % (45.0-75.0) Lymphocytes (%) (Auto) 23.8 % (20.0-45.0) Monocytes (%) (Auto) 10.1 % (1.0-10.0) H Eosinophils (%) (Auto) 4.9 % (0.0-3.0) H Basophils (%) (Auto) 1.1 % (0.0-2.0) Sodium Level 142 mEQ/L (135-145) Potassium Level 4.7 mEQ/L (3.4-4.9) Chloride Level 104 mEQ/L (98-107) Carbon Dioxide Level 29 mEQ/L (20-30) Anion Gap 9 (5-15) Blood Urea Nitrogen 19 mg/dL (7-23) Creatinine 1.3 mg/dL (0.5-0.9) H Estimat Glomerular Filtration Rate 40.6 mL/min (>60) Glucose Level 188 mg/dL (74-106) H Calcium Level 8.9 mg/dL (8.6-10.2) Intake and Output 10/14/16 10/15/16 19:00 07:00 Intake Total 1000 ml Output Total 450 ml 1000 ml Balance 550 ml -1000 ml Intake Oral 1000 ml Output Urine Total 450 ml 1000 ml # Bowel Movements 1 1 Objective General: alert, cooperative, no distress, appears stated age Head: normocephalic, without obvious abnormality, atraumatic Eyes: conjunctivae/corneas clear. PERRL, EOM's intact Throat: lips, mucosa, and tongue normal. MMM Neck: supple, symmetrical, trachea midline, and no JVD Lungs: clear to auscultation bilaterally Heart: regular rate and rhythm, S1, S2 normal, no murmur, click, rub or gallop Abdomen: soft, tender, to palp epigastric and left upper quadrant; non- distended, bowel sounds decreased; no masses or organomegaly Extremities: extremities normal, atraumatic, no cyanosis or edema Pulses: 2+ and symmetric Skin: skin color, texture, turgor normal; no rashes or lesions Neurologic: right hemiparesis, no focal deficits Assessment/Plan Problem List: (1) Left upper quadrant pain (2) Abdominal pain Assessment & Plan: History of pancreatitis. CT = WNL. Conservative treatment per GI consult. (3) Epigastric pain (4) Renal failure (5) COPD (chronic obstructive pulmonary disease) (6) Cardiomyopathy (7) Diabetes mellitus Assessment & Plan: Cont novolog sliding scale. (8) HTN (hypertension) Assessment & Plan: Continue coreg. (9) Cerebral vascular disease (10) AICD (automatic cardioverter/defibrillator) present (11) Hemiparesis, right (12) LBBB (left bundle branch block) (13) Iron deficiency anemia (14) Hyperkalemia Assessment & Plan: Oral Kayexalate. Status: stable Assessment/Plan Discharge planning. D/C JOVANA Box October 15, 2016 15:44
[2016-10-15 15:46] VITALS: BP 123/60
[2016-10-15 20:00] VITALS: BP 132/68
[2016-10-15] MEDS: Miralax 17gm pkt ORAL SCH (20:57)
--- NOTE | 2016-10-15 21:59 | Pulmonology Progress Note ---
Assessment/Plan Problems: (1) Renal failure (2) Hyperkalemia (3) EF 25% (4) AICD (automatic cardioverter/defibrillator) present (5) Hemiparesis, right (6) Diabetes mellitus Assessment/Plan advance diet improving IV fluids kayexalate renal us noted renal electroltyes dvt prophylaxis start laxatives med/surg Subjective Allergies: Coded Allergies: No Known Allergies (Unverified , 03/12/15) Objective Last 24 Hour Vital Signs Date Time Temp Pulse Resp B/P Pulse Ox O2 Delivery O2 Flow Rate FiO2 10/15/16 21:34 Nasal Cannula 2.0 28 10/15/16 21:34 99 Nasal Cannula 2.0 28 10/15/16 20:55 86 132/68 10/15/16 20:00 97.5 86 17 132/68 96 Room Air 10/15/16 15:46 97.9 73 19 123/60 96 Nasal Cannula 2.0 10/15/16 11:30 97.6 74 20 106/48 97 Nasal Cannula 2.0 10/15/16 09:41 81 127/61 10/15/16 08:16 97 Nasal Cannula 2.0 28 10/15/16 08:16 Nasal Cannula 2.0 28 10/15/16 08:07 97.7 81 21 127/61 98 Nasal Cannula 2.0 10/15/16 04:00 98.2 72 19 121/55 95 Room Air 10/15/16 00:00 97.5 67 20 122/55 97 Nasal Cannula 2.0 Intake and Output 10/14/16 10/15/16 19:00 07:00 Intake Total 1000 ml Output Total 450 ml 1000 ml Balance 550 ml -1000 ml Intake Oral 1000 ml Output Urine Total 450 ml 1000 ml # Bowel Movements 1 1 Laboratory Tests 10/15/16 05:35: White Blood Count 10.0, Red Blood Count 3.67L, Hemoglobin 9.7L, Hematocrit 31.0L , Mean Corpuscular Volume 84, Mean Corpuscular Hemoglobin 26.3L, Mean Corpuscular Hemoglobin Concent 31.2L, Red Cell Distribution Width 14.0, Platelet Count 200, Mean Platelet Volume 9.5, Neutrophils (%) (Auto) 60.1, Lymphocytes (%) (Auto) 23.8, Monocytes (%) (Auto) 10.1H, Eosinophils (%) (Auto) 4.9H, Basophils (%) (Auto) 1.1, Sodium Level 142, Potassium Level 4.7, Chloride Level 104, Carbon Dioxide Level 29, Anion Gap 9, Blood Urea Nitrogen 19, Creatinine 1.3H, Estimat Glomerular Filtration Rate 40.6, Glucose Level 188H, Calcium Level 8.9 Current Medications Medications (Trade) Dose Ordered Sig/[place] Route PRN Reason Start Time Stop Time Status Last Admin Dose Admin Acetaminophen (Tylenol) 650 mg Q4H PRN ORAL fever 10/13/16 16:00 11/12/16 15:59 Atorvastatin Calcium (Lipitor) 40 mg BEDTIME ORAL 10/13/16 21:00 11/12/16 20:59 10/15/16 20:52 Carvedilol (Coreg) 3.125 mg EVERY 12 HOURS ORAL 10/13/16 21:00 11/12/16 20:59 10/15/16 20:55 Clopidogrel Bisulfate (Plavix) 75 mg DAILY ORAL 10/14/16 09:00 11/13/16 08:59 10/15/16 09:40 Dextrose (Dextrose 50%) STAT PRN IV Hypoglycemia 10/13/16 16:00 11/12/16 15:59 Docusate Sodium (Colace) 100 mg THREE TIMES A DAY ORAL 10/13/16 18:00 11/12/16 17:59 Heparin Sodium (Porcine) (Heparin 5000 units/ml) 5,000 units EVERY 12 HOURS SUBQ 10/13/16 21:00 11/12/16 20:59 10/15/16 20:56 Insulin Aspart (NovoLOG) BEFORE MEALS AND HS SUBQ 10/13/16 16:30 11/12/16 16:29 10/15/16 21:03 Lactulose (Cephulac) 30 gm THREE TIMES A DAY ORAL 10/13/16 18:00 11/12/16 17:59 Mineral Oil (Fleet's Mineral Oil Enema) 133 ml EVERY OTHER DAY RECTAL 10/15/16 09:00 11/14/16 08:59 Morphine Sulfate (Morphine Sulfate) 2 mg Q4H PRN IVP severe Pain (Pain Scale 7-10) 10/13/16 16:00 10/20/16 15:59 Nitroglycerin (Ntg) 0.4 mg Q5M X 3 DOSES PRN SL Prn Chest Pain 10/13/16 15:45 11/12/16 15:44 Ondansetron HCl (Zofran) 4 mg Q6H PRN IVP Nausea & Vomiting 10/13/16 16:00 11/12/16 15:59 Pantoprazole (Protonix) 40 mg EVERY 12 HOURS ORAL 10/13/16 21:00 11/12/16 20:59 10/15/16 20:54 Polyethylene Glycol (Miralax) 17 gm BEDTIME ORAL 10/13/16 21:00 11/12/16 20:59 Polyethylene Glycol (Miralax) 17 gm HSPRN PRN ORAL Constipation 10/13/16 16:00 11/12/16 15:59 Pregabalin (Lyrica) 50 mg BID ORAL 10/13/16 18:00 11/12/16 17:59 10/15/16 17:39 Sennosides (Senokot) 8.6 mg DAILY ORAL 10/14/16 09:00 11/13/16 08:59 Temazepam (Restoril) 15 mg HSPRN PRN ORAL Insomnia 10/13/16 16:00 10/20/16 15:59 ERVIN COHN October 15, 2016 21:59
[2016-10-16] VITALS: BP 129/64
[2016-10-16 04:00] VITALS: BP 133/54
[2016-10-16] MEDS: NovoLOG Insulin Flexpen SUBQ SCH ×3 (06:28→17:18)
[2016-10-16 06:45] LABS: BASOPHILS % (AUTO) 0.6 % (0.0-2.0); LYMPHOCYTES % (AUTO) 22.1 % (20.0-45.0); MEAN CORPUSCULAR HEMOGLOBIN 26.2 PG (27.0-31.0); MEAN CORPUSCULAR HGB CONC 31.2 G/DL (32.0-36.0); MEAN CORPUSCULAR VOLUME 84 FL (80-99); MEAN PLATELET VOLUME 8.8 FL (6.5-10.1); MONOCYTES % (AUTO) 8.8 % (1.0-10.0); NEUTROPHILS % (AUTO) 63.5 % (45.0-75.0); PLATELET COUNT 204 K/UL (150-450); RED BLOOD COUNT 4.01 M/UL (4.20-5.40); RED CELL DISTRIBUTION WIDTH 14.2 % (11.6-14.8); WHITE BLOOD COUNT 11.3 K/UL (4.8-10.8)
[2016-10-16 07:16] LABS: CALCIUM 9.4 mg/dL (8.6-10.2); CREATININE 1.1 mg/dL (0.5-0.9); GLOMERULAR FILTRATION RATE 49.3 mL/min (>60); POTASSIUM 4.5 mEQ/L (3.4-4.9)
[2016-10-16 08:00] VITALS: BP 146/69
[2016-10-16] MEDS: Docusate 100mg cap ORAL SCH ×3 (08:34→17:15)
[2016-10-16] MEDS: Lactulose 20gm/30ml UDC ORAL SCH ×3 (08:34→17:05)
[2016-10-16] MEDS: Lyrica 50mg cap ORAL SCH ×2 (08:56→17:15)
[2016-10-16] MEDS: Heparin 5000 units/ml inj SUBQ SCH (08:59)
--- NOTE | 2016-10-16 11:25 | General Progress Note ---
Assessment/Plan Status: stable Assessment/Plan status: acute renal failure : Diuretics- Julio inhibitors HyperKalemia Anemia CardioMyopathy- Pacer Obesity Plan: Improved- Cr 1.3 GERTRUDIS [place] planning Subjective ROS Limited/Unobtainable: No Allergies: Coded Allergies: No Known Allergies (Unverified , 03/12/15) Objective Last 24 Hour Vital Signs Date Time Temp Pulse Resp B/P Pulse Ox O2 Delivery O2 Flow Rate FiO2 10/16/16 08:56 78 133/54 10/16/16 08:00 97.3 79 20 146/69 97 Room Air 10/16/16 04:00 96.9 78 17 133/54 93 Room Air 10/16/16 00:00 98.1 77 18 129/64 93 Nasal Cannula 10/15/16 21:34 Nasal Cannula 2.0 28 10/15/16 21:34 99 Nasal Cannula 2.0 28 10/15/16 20:55 86 132/68 10/15/16 20:00 97.5 86 17 132/68 96 Room Air 10/15/16 15:46 97.9 73 19 123/60 96 Nasal Cannula 2.0 10/15/16 11:30 97.6 74 20 106/48 97 Nasal Cannula 2.0 Intake and Output 10/15/16 10/16/16 19:00 07:00 Intake Total 520 ml Output Total 450 ml Balance 70 ml Intake Oral 520 ml Output Urine Total 450 ml # Voids 1 5 # Bowel Movements 1 3 Laboratory Tests 10/16/16 05:20: White Blood Count 11.3H, Red Blood Count 4.01L, Hemoglobin 10.5L, Hematocrit 33.7L, Mean Corpuscular Volume 84, Mean Corpuscular Hemoglobin 26.2L, Mean Corpuscular Hemoglobin Concent 31.2L, Red Cell Distribution Width 14.2, Platelet Count 204, Mean Platelet Volume 8.8, Neutrophils (%) (Auto) 63.5, Lymphocytes (%) (Auto) 22.1, Monocytes (%) (Auto) 8.8, Eosinophils (%) (Auto) 5.0H, Basophils (%) (Auto) 0.6, Sodium Level 144, Potassium Level 4.5, Chloride Level 103, Carbon Dioxide Level 27, Anion Gap 14, Blood Urea Nitrogen 15, Creatinine 1.1H, Estimat Glomerular Filtration Rate 49.3, Glucose Level 185H, Calcium Level 9.4 Height (Feet): 5 Height (Inches): 1.00 Weight (Pounds): 230 General Appearance: no apparent distress Objective no change in PE VALERIO SOTO October 16, 2016 11:25
[2016-10-16 12:00] VITALS: BP 130/62
--- NOTE | 2016-10-16 14:09 | Internal Med Progress Note ---
Subjective Date of Service: October 16, 2016 Physician Name Jovana Aguilar Attending Physician Brendan Wright MD Current Medications Medications (Trade) Dose Ordered Sig/[place] Route PRN Reason Start Time Stop Time Status Last Admin Dose Admin Acetaminophen (Tylenol) 650 mg Q4H PRN ORAL fever 10/13/16 16:00 11/12/16 15:59 Atorvastatin Calcium (Lipitor) 40 mg BEDTIME ORAL 10/13/16 21:00 11/12/16 20:59 10/15/16 20:52 Carvedilol (Coreg) 3.125 mg EVERY 12 HOURS ORAL 10/13/16 21:00 11/12/16 20:59 10/16/16 08:56 Clopidogrel Bisulfate (Plavix) 75 mg DAILY ORAL 10/14/16 09:00 11/13/16 08:59 10/16/16 08:57 Dextrose (Dextrose 50%) STAT PRN IV Hypoglycemia 10/13/16 16:00 11/12/16 15:59 Docusate Sodium (Colace) 100 mg THREE TIMES A DAY ORAL 10/13/16 18:00 11/12/16 17:59 Heparin Sodium (Porcine) (Heparin 5000 units/ml) 5,000 units EVERY 12 HOURS SUBQ 10/13/16 21:00 11/12/16 20:59 10/16/16 08:59 Insulin Aspart (NovoLOG) BEFORE MEALS AND HS SUBQ 10/13/16 16:30 11/12/16 16:29 10/16/16 12:06 Lactulose (Cephulac) 30 gm THREE TIMES A DAY ORAL 10/13/16 18:00 11/12/16 17:59 Mineral Oil (Fleet's Mineral Oil Enema) 133 ml EVERY OTHER DAY RECTAL 10/15/16 09:00 11/14/16 08:59 Morphine Sulfate (Morphine Sulfate) 2 mg Q4H PRN IVP severe Pain (Pain Scale 7-10) 10/13/16 16:00 10/20/16 15:59 Nitroglycerin (Ntg) 0.4 mg Q5M X 3 DOSES PRN SL Prn Chest Pain 10/13/16 15:45 11/12/16 15:44 Ondansetron HCl (Zofran) 4 mg Q6H PRN IVP Nausea & Vomiting 10/13/16 16:00 11/12/16 15:59 Pantoprazole (Protonix) 40 mg EVERY 12 HOURS ORAL 10/13/16 21:00 11/12/16 20:59 10/16/16 08:56 Polyethylene Glycol (Miralax) 17 gm BEDTIME ORAL 10/13/16 21:00 11/12/16 20:59 Polyethylene Glycol (Miralax) 17 gm HSPRN PRN ORAL Constipation 10/13/16 16:00 11/12/16 15:59 Pregabalin (Lyrica) 50 mg BID ORAL 10/13/16 18:00 11/12/16 17:59 10/16/16 08:56 Sennosides (Senokot) 8.6 mg DAILY ORAL 10/14/16 09:00 11/13/16 08:59 Temazepam (Restoril) 15 mg HSPRN PRN ORAL Insomnia 10/13/16 16:00 10/20/16 15:59 Allergies: Coded Allergies: No Known Allergies (Unverified , 03/12/15) ROS Limited/Unobtainable: No Constitutional: Reports: no symptoms HEENT: Reports: no symptoms Cardiovascular: Reports: no symptoms Respiratory: Reports: no symptoms Gastrointestinal/Abdominal: Reports: no symptoms Genitourinary: Reports: no symptoms 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: Reports: no symptoms Subjective 71 YO F admitted with epigastric and left upper quadrant pain. Cover for Int [place]-Dr Wright. Tolerating low sodium diet. Objective Last Vital Signs Date Time Temp Pulse Resp B/P Pulse Ox O2 Delivery O2 Flow Rate FiO2 10/16/16 12:00 97.3 77 20 130/62 95 Room Air 10/15/16 21:34 2.0 28 Laboratory Tests Test 10/16/16 05:20 White Blood Count 11.3 K/UL (4.8-10.8) H Red Blood Count 4.01 M/UL (4.20-5.40) L Hemoglobin 10.5 G/DL (12.0-16.0) L Hematocrit 33.7 % (37.0-47.0) L Mean Corpuscular Volume 84 FL (80-99) Mean Corpuscular Hemoglobin 26.2 PG (27.0-31.0) L Mean Corpuscular Hemoglobin Concent 31.2 G/DL (32.0-36.0) L Red Cell Distribution Width 14.2 % (11.6-14.8) Platelet Count 204 K/UL (150-450) Mean Platelet Volume 8.8 FL (6.5-10.1) Neutrophils (%) (Auto) 63.5 % (45.0-75.0) Lymphocytes (%) (Auto) 22.1 % (20.0-45.0) Monocytes (%) (Auto) 8.8 % (1.0-10.0) Eosinophils (%) (Auto) 5.0 % (0.0-3.0) H Basophils (%) (Auto) 0.6 % (0.0-2.0) Sodium Level 144 mEQ/L (135-145) Potassium Level 4.5 mEQ/L (3.4-4.9) Chloride Level 103 mEQ/L (98-107) Carbon Dioxide Level 27 mEQ/L (20-30) Anion Gap 14 (5-15) Blood Urea Nitrogen 15 mg/dL (7-23) Creatinine 1.1 mg/dL (0.5-0.9) H Estimat Glomerular Filtration Rate 49.3 mL/min (>60) Glucose Level 185 mg/dL (74-106) H Calcium Level 9.4 mg/dL (8.6-10.2) Intake and Output 10/15/16 10/16/16 19:00 07:00 Intake Total 520 ml Output Total 450 ml Balance 70 ml Intake Oral 520 ml Output Urine Total 450 ml # Voids 1 5 # Bowel Movements 1 3 Objective General: alert, cooperative, no distress, appears stated age Head: normocephalic, without obvious abnormality, atraumatic Eyes: conjunctivae/corneas clear. PERRL, EOM's intact Throat: lips, mucosa, and tongue normal. MMM Neck: supple, symmetrical, trachea midline, and no JVD Lungs: clear to auscultation bilaterally Heart: regular rate and rhythm, S1, S2 normal, no murmur, click, rub or gallop Abdomen: soft, tender, to palp epigastric and left upper quadrant; non- distended, bowel sounds decreased; no masses or organomegaly Extremities: extremities normal, atraumatic, no cyanosis or edema Pulses: 2+ and symmetric Skin: skin color, texture, turgor normal; no rashes or lesions Neurologic: right hemiparesis, no focal deficits Assessment/Plan Problem List: (1) Left upper quadrant pain (2) Abdominal pain Assessment & Plan: History of pancreatitis. CT = WNL. Conservative treatment per GI consult. (3) Epigastric pain (4) Renal failure (5) COPD (chronic obstructive pulmonary disease) (6) Cardiomyopathy (7) Diabetes mellitus Assessment & Plan: Cont novolog sliding scale. (8) HTN (hypertension) Assessment & Plan: Continue coreg. (9) Cerebral vascular disease (10) AICD (automatic cardioverter/defibrillator) present (11) Hemiparesis, right (12) LBBB (left bundle branch block) (13) Iron deficiency anemia (14) Hyperkalemia Assessment & Plan: Oral Kayexalate. Status: stable Assessment/Plan Discharge planning. D/C home [place] with home health. JOVANA AGUILAR October 16, 2016 14:09
[2016-10-16 16:00] VITALS: BP 116/59
[2016-10-16] MEDS ORDERED: D5NS 1000ml IV ONE (16:05)
--- NOTE | 2016-10-16 22:48 | Pulmonology Progress Note ---
Assessment/Plan Problems: (1) Renal failure (2) Hyperkalemia (3) EF 25% (4) AICD (automatic cardioverter/defibrillator) present (5) Hemiparesis, right (6) Diabetes mellitus Assessment/Plan advance diet improving IV fluids kayexalate renal us noted renal electroltyes dvt prophylaxis start laxatives med/surg Subjective Allergies: Coded Allergies: No Known Allergies (Unverified , 03/12/15) Objective Last 24 Hour Vital Signs Date Time Temp Pulse Resp B/P Pulse Ox O2 Delivery O2 Flow Rate FiO2 10/16/16 16:00 97.7 86 20 116/59 97 Room Air 10/16/16 12:00 97.3 77 20 130/62 95 Room Air 10/16/16 08:56 78 133/54 10/16/16 08:00 97.3 79 20 146/69 97 Room Air 10/16/16 04:00 96.9 78 17 133/54 93 Room Air 10/16/16 00:00 98.1 77 18 129/64 93 Nasal Cannula Intake and Output 10/15/16 10/16/16 19:00 07:00 Intake Total 520 ml Output Total 450 ml Balance 70 ml Intake Oral 520 ml Output Urine Total 450 ml # Voids 1 5 # Bowel Movements 1 3 Laboratory Tests 10/16/16 05:20: White Blood Count 11.3H, Red Blood Count 4.01L, Hemoglobin 10.5L, Hematocrit 33.7L, Mean Corpuscular Volume 84, Mean Corpuscular Hemoglobin 26.2L, Mean Corpuscular Hemoglobin Concent 31.2L, Red Cell Distribution Width 14.2, Platelet Count 204, Mean Platelet Volume 8.8, Neutrophils (%) (Auto) 63.5, Lymphocytes (%) (Auto) 22.1, Monocytes (%) (Auto) 8.8, Eosinophils (%) (Auto) 5.0H, Basophils (%) (Auto) 0.6, Sodium Level 144, Potassium Level 4.5, Chloride Level 103, Carbon Dioxide Level 27, Anion Gap 14, Blood Urea Nitrogen 15, Creatinine 1.1H, Estimat Glomerular Filtration Rate 49.3, Glucose Level 185H, Calcium Level 9.4 ERVIN COHN October 16, 2016 22:48
--- NOTE | 2016-10-18 09:31 | Discharge Summary ---
Discharge Summary Hospital Course Date of Admission October 11, 2016 at 09:36 Date of Discharge October 16, 2016 at 17:48 Admitting Diagnosis abdominal pain HPI Amaya Harvey is a 71 year old female who was admitted on October 11, 2016 at 09:36 for Abdominal Pain Hospital Course dc summary #[id number] Discharge Medications Continued Medications: Acetaminophen* (Tylenol Extra Strength*) 500 Mg Tablet 500 MG ORAL Q6H PRN for Mild Pain/Temp > 100.5, TAB 0 Refills Aspirin Ec* (Aspirin Ec*) 81 Mg Tablet.dr 81 MG ORAL DAILY, TAB Atorvastatin Calcium* (Atorvastatin Calcium*) 20 Mg Tablet 40 MG ORAL BEDTIME, TAB Carvedilol (Coreg) 3.125 Mg Tablet 3.125 MG ORAL EVERY 12 HOURS for 30 Days, TAB Clopidogrel* (Clopidogrel*) 75 Mg Tablet 75 MG ORAL DAILY, TAB Esomeprazole Magnesium (Nexium) 40 Mg Capsule.dr 40 MG ORAL DAILY, CAP Insulin Aspart (Novolog Flexpen) 100 Units/Ml Pen 0 UNITS SUBQ BEFORE MEALS AND HS, #1 EA Insulin Glargine (Lantus) 100 Unit/1 Ml Insuln.pen 0 SUBQ BEDTIME, #1 EA 0 Refills Isosorbide Dinitrate* (Isordil*) 30 Mg Tablet 30 MG ORAL DAILY, TAB 0 Refills Loratadine (Loratadine) 10 Mg Tab.rapdis 10 MG PO DAILY, TAB Omeprazole (Omeprazole) 20 Mg Capsule.dr 20 MG ORAL DAILY, CAP Pregabalin (Lyrica) 50 Mg Capsule 50 MG ORAL BID, CAP Simethicone (Mi-Acid) 80 Mg Tab.chew 80 MG PO, TAB Discharge Condition Upon Discharge: stable Discharge Disposition Patient was discharged to Home with Home Health(06) Discharge Diagnoses: Discharge Instructions Discharge Instructions Special Instructions I have been assigned to complete a D/C Summary on this account. I was not involved in the patient management Sari Carmona NP (Vanchtein) October 18, 2016 09:31
--- NOTE | 2016-10-19 01:09 | Discharge Summary 2 SIG ---
DATE OF ADMISSION: 10/11/2016 DATE OF DISCHARGE: 10/16/2016 REASON FOR ADMISSION: 71-year-old female presented to emergency room complaining of abdominal pain. Pain was generalized, but localized more in the right upper quadrant with some radiation to the back. She denied any vomiting or diarrhea. The patient reported moving her bowels without any difficulty. The patient with a history of pancreatitis and urinary tract infection. In the past, was admitted for hyperkalemia and renal insufficiency. The patient with multiple chronic renal problems including systolic heart failure, cardiomyopathy, automatic implanted cardioverter defibrillator, chronic obstructive pulmonary disease, diabetes, and hypertension. Workup in the emergency room revealed white blood count of 12.3, BUN -57, and creatinine -2.4. Lactic acid - 1.6. Troponin was negative. Potassium- 5.9 and sodium - 128. The patient was admitted for further management. In the emergency room, the patient was treated for hyperkalemia. Pain management provided. The patient was started on empiric antibiotics for leukocytosis. Urinalysis revealed +2 leukocyte esterase, only occasional bacteria, and negative for nitrate and normal WBC. ADMITTING DIAGNOSES: 1. Acute renal failure. 2. Hyperkalemia. 3. Abdominal pain. 4. Leukocytosis HOSPITAL COURSE: The patient was admitted. Nephrology consult was requested. According to director regulatory compliance, the patient had acute renal failure and hyperkalemia likely due to diuretics and JAROCHO inhibitors, which were stopped. Hyperkalemia was treated in the emergency room and potassium was stable afterwards. Initially, the patient was slowly hydrated, renal parameters and electrolytes were closely monitored. Nephrotoxics were avoided. GI consult was requested. Abdominal ultrasound revealed hepatomegaly with fatty infiltrate. CT of the abdomen and pelvis revealed a tiny nonobstructive stone in the right kidney, trace right pleural effusion, basilar atelectasis, cardiomegaly, atherosclerotic vascular disease, pacemaker, diverticulosis of the colon, but no acute finding. Bowel regimen instituted. Venous duplex of bilateral lower extremities was negative. Echocardiogram revealed ejection fraction of 20% to 25% with global left ventricular hypokinesis, mild aortic stenosis, evidence of automatic implanted cardioverter defibrillator, moderate mitral regurgitation, and right ventricular systolic pressure of 53 consistent with moderate pulmonary hypertension. The patient was prior on medical treatment for systolic heart failure including beta-dayna, diuretic, JAROCHO inhibitor and isosorbide . Due to the acute renal failure, Lasix and JAROCHO inhibitor were both stopped. The patient was on beta-dayna and isosorbide. Blood pressure was managed with beta-dayna and was stable. Aspirin and Plavix were continued along with statin. Lipid panel, was stable. Renal parameters improving. Electrolytes stable. Prior to discharge, BUN - 15, creatinine -1.1, potassium - 4.5, and sodium- 144. Anemia workup revealed iron deficiency anemia. The patient was on Venofer while in the hospital. GI followed, patient started on H2 dayna. Bowel regimen instituted. Patient was on low sodium diet (after Na corrected). Symptomatic treatment provided. Stable hemoglobin and hematocrit prior to discharge. No trend down. Stool OB was negative. Supplemental oxygen and pulmonary toilet provided as needed. Pulse oximetry stable on the room air. Leukocytosis resolved. No antibiotics, except the first one in the emergency room was provided. Wound care nurse seen the patient for present on admission, coccyx stage IV/un-stageable decubitus. Wound care provided as per wound care nurse recommendations. Pain management provided. Hemoglobin A1c 10.4, not at goal. The patient was started on Levemir along with the sliding scale of insulin and close followup with the primary medical doctor advised. Patient likely will need further titration of antiglycemic regimen. The patient was educated on low-fat low-cholesterol diet. The patient was stable for discharge. DISCHARGE DIAGNOSES: 1. Acute renal failure secondary to angiotensin-converting enzymes inhibitor and diuretic, resolved. 2. Abdominal pain, likely secondary to acute renal failure. 3. Hyperkalemia, resolved. 4. Systolic heart failure, no evidence of exacerbation. 5. Cardiomyopathy. 6. Automatic implantable cardioverter-defibrillator. 7. Chronic obstructive pulmonary disease. 8. Coccyx decubitus stage IV/unstageable present on admission. 9. Hypertension. 10. Diabetes mellitus. 11. Iron-deficiency anemia. 12. Steatosis of the liver. DISCHARGE MEDICATIONS: See medication reconciliation list. DISCHARGE INSTRUCTIONS: The patient was discharged home with home health services. Follow up with primary medical doctor for optimization of blood sugar management and hold diuretic and an JAROCHO for now. Follow up with the electrician yard for further management of congestive heart failure. Brendan Wright M.D. I have been assigned to dictate discharge summary on this account and I was not involved in the patient's management. Sari Carmona (Vanchtein) NWindy DR: ESTELA JOB#: [id number] CC: FERNANDO
== END 2016-10-16 17:48 | disposition home health service (06) | DRG 682 ==
LOC: EDBD 08:33 → EMR 09:34 → 2E 09:36 → EDBEDREQ 12:43 → 4E 10-13 15:28
PROC: 02HV33Z Insertion of Infusion Device into Superior Vena Cava, Percutaneous Approach (ICD-10-PCS; principal; 2016-10-12)
DX: N17.9 Acute kidney failure, unspecified (principal); L89.154 Pressure ulcer of sacral region, stage 4; I42.9 Cardiomyopathy, unspecified; I50.20 Unspecified systolic (congestive) heart failure; I69.351 Hemiplegia and hemiparesis following cerebral infarction affecting right dominant side; K76.0 Fatty (change of) liver, not elsewhere classified; E88.09 Other disorders of plasma-protein metabolism, not elsewhere classified; T50.2X5A Adverse effect of carbonic-anhydrase inhibitors, benzothiadiazides and other diuretics, initial encounter; T44.5X5A Adverse effect of predominantly beta-adrenoreceptor agonists, initial encounter; E87.5 Hyperkalemia; R10.13 Epigastric pain; I10 Essential (primary) hypertension; E11.9 Type 2 diabetes mellitus without complications; D50.9 Iron deficiency anemia, unspecified; I73.9 Peripheral vascular disease, unspecified; E78.1 Pure hyperglyceridemia; Z95.810 Presence of automatic (implantable) cardiac defibrillator; I44.7 Left bundle-branch block, unspecified; K44.9 Diaphragmatic hernia without obstruction or gangrene; Z85.41 Personal history of malignant neoplasm of cervix uteri; Z79.4 Long term (current) use of insulin; E66.9 Obesity, unspecified; I25.10 Atherosclerotic heart disease of native coronary artery without angina pectoris
CPT/HCPCS: 36415; 36569; 74176; 76700; 76937; 80048; 80053; 80061; 81003; 82150; 82270; 82550; 82607; 82728; 82746; 82962; 82977; 83036; 83540; 83550; 83605; 83690; 83735; 83880; 84100; 84300; 84443; 84484; 84550; 85025; 85610; 85730; 86140; 86850; 86900; 86901; 89050; 93005; 93306; 93970; 94760; J1815; J2405

== ENCOUNTER 2016-12-18 02:07 | Inpatient (IN) | payer MEDICARE, OTHER ==
[~2016-12-18] VITALS: Ht 154.9 cm; Wt 78.0 kg
[2016-12-18] VITALS (9 sets, daily range): BP systolic 91–118; BP diastolic 41–58
[~2016-12-18 02:07] MED LIST changes: +CLOPIDOGREL75 MG ORAL; +MI-ACID80 MG PO; +TYLENOL EXTRA500 MG ORAL
[2016-12-18] MEDS ORDERED: Morphine Sulfate 2mg/ml Inj IVP ONE (02:30)
[2016-12-18] MEDS ORDERED: Dicyclomine HCl 10mg/5ml oral soln ORAL ONE (02:30)
[2016-12-18 03:07] LABS: BASOPHILS % (AUTO) 1.1 % (0.0-2.0); EOSINOPHILS % (AUTO) 2.9 % (0.0-3.0); LYMPHOCYTES % (AUTO) 18.1 % (20.0-45.0); MEAN CORPUSCULAR HEMOGLOBIN 25.4 PG (27.0-31.0); MEAN CORPUSCULAR HGB CONC 30.7 G/DL (32.0-36.0); MEAN CORPUSCULAR VOLUME 83 FL (80-99); MEAN PLATELET VOLUME 10.4 FL (6.5-10.1); NEUTROPHILS % (AUTO) 68.9 % (45.0-75.0); PLATELET COUNT 243 K/UL (150-450); RED BLOOD COUNT 4.23 M/UL (4.20-5.40); RED CELL DISTRIBUTION WIDTH 14.6 % (11.6-14.8); WHITE BLOOD COUNT 14.3 K/UL (4.8-10.8)
[2016-12-18 03:23] LABS: ALBUMIN/GLOBULIN RATIO 0.7 (1.0-2.7); CALCIUM 8.8 mg/dL (8.6-10.2); CREATININE 2.2 mg/dL (0.5-0.9); GLOMERULAR FILTRATION RATE 22.1 mL/min (>60); POTASSIUM 5.2 mEQ/L (3.4-4.9); TOTAL PROTEIN 7.7 g/dL (6.6-8.7); TROPONIN I < 0.30 ng/mL (<=0.30)
[2016-12-18] MEDS ORDERED: Ampicillin/Sulbactam Sod 3 GM in NS 110 ML IVPB ONE (04:30)
[2016-12-18] MEDS ORDERED: Unasyn 3gm Inj ONE (04:38)
[2016-12-18] MEDS ORDERED: SPIRONOLACTONE25 MG ORAL (05:11)
[2016-12-18] MEDS ORDERED: FUROSEMIDE20 M1 ORAL (05:18)
[2016-12-18] MEDS ORDERED: POLYETHYLENE GL17 GM ORAL (05:18)
[2016-12-18 05:35] LABS: KETONES,URINE NEGATIVE (NEGATIVE); LEUKOCYTE ESTERASE ,URINE 3+ (NEGATIVE); NITRITE,URINE NEGATIVE (NEGATIVE); PH,URINE 5 (4.5-8.0); PROTEIN,URINE 1+ (NEGATIVE); UROBILINOGEN,URINE 1 MG/DL (0.0-1.0)
[2016-12-18 05:51] LABS: APPEARANCE,URINE CLOUDY
[2016-12-18 05:52] LABS: BACTERIA,URINE MANY /HPF; ICTOTEST POSITIVE; SQUAMOUS EPITHELIAL CELL,UR FEW /LPF (NONE/OCC); WBC,URINE TNTC /HPF (0 - 2)
--- NOTE | 2016-12-18 06:38 | Emergency Room Report ---
History of Present Illness General Chief Complaint: Abdominal Pain Source: Patient Present Illness HPI Patient 71-year-old female presented after increased abdominal pain. Patient reports having had generalized pain. She reported having some increased the abdominal discomfort which was worsened by supine position. Patient prior history of congestive heart failure as well as a pacemaker placement she is also noted be diabetic. She is followed by Dr. Wright. Allergies: Coded Allergies: No Known Allergies (Unverified , 12/18/16) Patient History Past Medical History: see triage record Past Surgical History: pacemaker Last Menstrual Period: n/a Reviewed Nursing Documentation: PMH: Agreed, PSxH: Agreed Nursing Documentation-PMH Past Medical History: No History, Except For Hx Cardiac Problems: Yes Hx Hypertension: Yes Hx Pacemaker: Yes - LEFT Hx COPD: Yes Hx Diabetes: Yes Hx Cancer: Yes - uterine and cervical Hx Gastrointestinal Problems: Yes Hx Neurological Problems: Yes Hx Cerebrovascular Accident: Yes Hx Dementia: No Hx Alzheimer's Disease: No Hx Parkinson's Disease: No Hx Meningitis: No Hx Epilepsy: No Hx Multiple Sclerosis: No Hx Cerebral Palsy: No Hx Amyotrophic Lat Sclerosis: No Hx Guillian-Bellbrook Syndrome: No Hx Paralysis: Yes - right sided hemiplegia Hx Peripheral Neuropathy: Yes Hx Spinal Cord Injury: No Hx Head Trauma: No Hx Traumatic Brain Injury: No Hx Memory Loss: No Hx Concentration Difficulty: Yes Hx Speech Problem: No Hx Tremors: Yes Hx Vertigo: No Hx Dizziness: Yes Hx Syncope: No Hx Headaches: No Hx Aphasia: No Hx Dysphasia: No Hx Numbness: Yes Hx Weakness: Yes Hx Fatigue: No Hx Neurologic Surgery: No Hx Brain Shunt: No Review of Systems All Other Systems: negative except mentioned in HPI Physical Exam Vital Signs Date Time Temp Pulse Resp B/P Pulse Ox O2 Delivery O2 Flow Rate FiO2 12/18/16 02:20 97.0 97 27 116/53 92 Room Air 12/18/16 04:39 2.0 Sp02 EP Interpretation: reviewed, normal General Appearance: normal inspection, well appearing, no apparent distress, alert, GCS 15, non-toxic Head: atraumatic ENT: normal ENT inspection, hearing 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, normal voice Neck: normal inspection, full range of motion, supple, no bony tend Respiratory: normal inspection, lungs clear, normal breath sounds, no respiratory distress, no retraction, no wheezing Cardiovascular #1: regular rate, rhythm, no edema Gastrointestinal: normal inspection, normal bowel sounds, non tender, soft, no guarding, no hernia Genitourinary: no CVA tenderness Musculoskeletal: normal inspection, back normal, normal range of motion Neurologic: normal inspection, alert, responsive, speech normal Psychiatric: normal inspection, judgement/insight normal, mood/affect normal Skin: normal inspection, normal color, no rash Medical Decision Making Diagnostic Impression: Primary Impression: UTI (urinary tract infection) Additional Impressions: Acute renal failure (ARF) Pneumonitis ER Course Patient presented for abdominal pain. Differential diagnoses included ischemic bowel, appendicitis, perforated viscus, abdominal aortic aneurysm, inferior myocardial infarction, viral gastroenteritis Because of complexity of patient's case laboratory testing and imaging studies were ordered. The EKG interpreted by me showed a paced rhythm rate of [address] there were n acute ST or T wave changes. The patient was IV fluids. Laboratory white blood Count as well as elevated creatinine. Dr. Brendan Wright was contacted for inpatient management due to primary care physician Labs Test 12/18/16 02:34 12/18/16 05:00 12/18/16 05:30 White Blood Count 14.3 K/UL (4.8-10.8) Red Blood Count 4.23 M/UL (4.20-5.40) Hemoglobin 10.7 G/DL (12.0-16.0) Hematocrit 35.0 % (37.0-47.0) Mean Corpuscular Volume 83 FL (80-99) Mean Corpuscular Hemoglobin 25.4 PG (27.0-31.0) Mean Corpuscular Hemoglobin Concent 30.7 G/DL (32.0-36.0) Red Cell Distribution Width 14.6 % (11.6-14.8) Platelet Count 243 K/UL (150-450) Mean Platelet Volume 10.4 FL (6.5-10.1) Neutrophils (%) (Auto) 68.9 % (45.0-75.0) Lymphocytes (%) (Auto) 18.1 % (20.0-45.0) Monocytes (%) (Auto) 9.0 % (1.0-10.0) Eosinophils (%) (Auto) 2.9 % (0.0-3.0) Basophils (%) (Auto) 1.1 % (0.0-2.0) Sodium Level 135 mEQ/L (135-145) Potassium Level 5.2 mEQ/L (3.4-4.9) Chloride Level 97 mEQ/L (98-107) Carbon Dioxide Level 16 mEQ/L (20-30) Anion Gap 22 (5-15) Blood Urea Nitrogen 49 mg/dL (7-23) Creatinine 2.2 mg/dL (0.5-0.9) Estimat Glomerular Filtration Rate 22.1 mL/min (>60) Glucose Level 236 mg/dL (74-106) Calcium Level 8.8 mg/dL (8.6-10.2) Total Bilirubin 0.3 mg/dL (0.0-1.2) Aspartate Amino Transf (AST/SGOT) 27 U/L (5-40) Alanine Aminotransferase (ALT/SGPT) 10 U/L (3-33) Alkaline Phosphatase 145 U/L (35-104) Troponin I < 0.30 ng/mL (<=0.30) Total Protein 7.7 g/dL (6.6-8.7) Albumin 3.2 g/dL (3.5-5.2) Globulin 4.5 g/dL Albumin/Globulin Ratio 0.7 (1.0-2.7) Lipase 42 U/L (< 60) Lactic Acid Level 1.30 mmol/L (0.66-2.22) Urine Color Yellow Urine Appearance Cloudy Urine pH 5 (4.5-8.0) Urine Specific [place] 1.010 (1.005-1.035) Urine Protein 1+ (NEGATIVE) Urine Glucose (UA) Negative (NEGATIVE) Urine Ketones Negative (NEGATIVE) Urine Occult Blood 2+ (NEGATIVE) Urine Nitrite Negative (NEGATIVE) Urine Bilirubin 1+ (NEGATIVE) Urine Ictotest Positive Urine Urobilinogen 1 MG/DL (0.0-1.0) Urine Leukocyte Esterase 3+ (NEGATIVE) Urine RBC 5-10 /HPF (0 - 2) Urine WBC Tntc /HPF (0 - 2) Urine Squamous Epithelial Cells Few /LPF (NONE/OCC) Urine Bacteria Many /HPF (NONE) Chest X-Ray Diagnostic Results Chest X-Ray Diagnostic Results : Chest X-Ray Ordered: Yes # of Views/Limited/Complete: 1 View Indication: Chest Pain EP Interpretation: Yes Interpretation: no effusion, no pneumothorax, no acute cardiopulmonary disease Impression: No acute disease Interpreting ER Provider: Electronically signed by Dr. Harsha Conteh M.D. Last Vital Signs Date Time Temp Pulse Resp B/P Pulse Ox O2 Delivery O2 Flow Rate FiO2 12/18/16 05:25 97.8 79 19 105/43 100 Nasal Cannula 2.0 Status: unchanged Disposition: ADMITTED INPATIENT Condition: Serious Referrals: NON PHYSICIAN (PCP) Harsha Conteh Dec 18, 2016 06:38
[2016-12-18] MEDS ORDERED: Miralax 17gm pkt ORAL PRN (08:00)
[2016-12-18] MEDS ORDERED: Nitroglycerin Subl 0.4mg tab (Bottle Of 25) SL PRN (08:00)
[2016-12-18] MEDS ORDERED: Mylanta II UD 30ml ORAL PRN (08:00)
[2016-12-18] MEDS: D5 1/2NS 1,000 ML IV SCH ×2 (08:38→21:55)
[2016-12-18] MEDS: Spironolactone 25mg tab ORAL SCH (10:00)
[2016-12-18] MEDS: Heparin 5000 units/ml inj SUBQ SCH ×2 (10:54→20:51)
[2016-12-18] MEDS: Pantoprazole Inj IVP SCH (10:55)
[2016-12-18] MEDS: Lyrica 50mg cap ORAL SCH ×2 (10:56→18:06)
[2016-12-18] MEDS ORDERED: NovoLOG Insulin Flexpen SUBQ SCH (11:30)
[2016-12-18] MEDS ORDERED: Piperacillin/Tazobactam 3.375 GM in NS 110 ML IVPB SCH (12:00)
[2016-12-18] MEDS: Insulin NovoLOG Flexpen S/S (Mod) SUBQ SCH ×3 (12:00→21:00)
[2016-12-18] MEDS: Piperacillin/Tazobactam 3.375 GM in NS 110 ML IVPB SCH (14:13)
--- NOTE | 2016-12-18 14:39 | History & Physical ---
History and Physical History & Physicial Dictated for Int Med-Dr Wright no. [id number]. JOVANA AGUILAR Dec 18, 2016 14:39
--- NOTE | 2016-12-18 16:34 | Consultation ---
Consult Note Consult Note DATE OF CONSULTATION: 12/19/2015 INFECTIOUS DISEASES CONSULTATION CONSULTING PHYSICIAN: Rodo Dinero M.D., KYM[facility]H, [facility] covering for Dr. Haddad REFERRING PHYSICIAN: Ida Nolen M.D. REASON FOR CONSULTATION: Leukocytosis, pyuria, probable UTI HISTORY OF PRESENT ILLNESS: 71 y/o female admitted for fatigue and generalized weakness. ID consulted for probable UTI. ROS as described below. Pyuria on U/A obtained in ER. ER physician documented CXR without infiltrate nor effusion, but I do not have access to this image yet. Nursing confirming whether this was on a straight cath specimen or clean catch. does not have indwelling arrington catheter. Prior davis sensitive E coli UTI in . During that admission she had a CT scan demonstrating a punctate calcific focus in central part of the R kidney that was probably a small non obstructive stone, but no hydronephrosis, and a normal appearing gall bladder. PAST MEDICAL HISTORY: COPD CHF Cardiomyopathy DM2 HTN CVA R hemiparesis Cervical Cancer, s/p KENA Iron Deficiency anemia Complete LBBB, s/p AICD Diverticulosis E coli UTI-- small hiatal hernia GERD w/o esophagitis--s/p normal EGD and normal colonoscopy 10/14/16 Past Surgical History: Total abdominal hysterectomy Appendectomy AICD November 2015 ALLERGIES: No known drug allergies. Antibiotics: IV Zosyn (12/18/16- Home medications reviewed. SOCIAL HISTORY: The patient lives at home, no indwelling arrington FAMILY HISTORY: Unavailable. REVIEW OF SYSTEMS: through official court interpreter, she denies any fevers, chills, n/v, flank pain, or dysuria. voids spontaneously. Denies any diarrhea. PHYSICAL EXAMINATION: VITAL SIGNS: GEN: awake, alert, non toxic appearing HEENT: Mild pale conjunctiva. No icterus. Head, normocephalic. NECK: No lymphadenopathy. CHEST: faint end expiratory wheezes bilaterally HEART: S1 and S2, no murmurs, exam limited by body habitus ABDOMEN: obest, not Distended, and non tender to palpation. No organomegaly. no peg. EXTREMITIES: No cyanosis at this time. trace BLE. no rash. old healed scars on ble. no picc line in place NEUROLOGIC: awake, alert. R hemiparesis, chronic. : external genitalia wnl, no arrington in place. LABORATORY AND DIAGNOSTIC DATA: Admission WBC 14.3, 69% neutrophils, hgb 10.7, plt 243. Na 135, K 5.2, CO2 16, SCr 2.2, GFR 22, gluc 236. T bili 0.3, alk phos mildly elevated at 145, AST and ALT normal (27 and 10), albumin 3.2. Lipase normal at 42. U/A with + LE, + nitrites and too numberous to count WBCx Blood and ucx pending. Assessment/Plan Assessment/Plan ASSESSMENT: 71 y/o female admitted with generalized weakness, anion gap metabolic acidosis, leukocytosis and pyuria consistent with UTI. hemodynamically stable, receiving IV hydration, and now on day#0 empiric IV zosyn after receiving one dose of unasyn in the ER. She previously had a R renal stone, non obstructing noted on prior CT in . Once her renal function improves, she should have repeat CT a/p with contrast to ensure no retained infected stones, as that could impact treatment duration. //Leukocytosis //pyuria, probable UTI //anion gap metabolic acidosis //Dehydration PLAN: 1) Continue IV zosyn renally dosed 2) f/u results of urine and blood cx 3) monitor daily CBC for resolution of leukocytosis 4) Monitor chem panel for resolution of AG metabolic acidosis 5) CT A/p with IV contrast in next 48-72 hrs once renal function improves. Thank you for this consultation. Will continue to follow. Rodo Dinero M.D. Dec 18, 2016 16:34
[2016-12-18 18:37] LABS: APPEARANCE,URINE SLIGHTLY CLOUDY; KETONES,URINE NEGATIVE (NEGATIVE); NITRITE,URINE NEGATIVE (NEGATIVE); PH,URINE 6.5 (4.5-8.0); PROTEIN,URINE 1+ (NEGATIVE)
[2016-12-18 18:38] LABS: BACTERIA,URINE FEW /HPF; LEUKOCYTE ESTERASE ,URINE 2+ (NEGATIVE); RBC,URINE 0-2 /HPF (0 - 2); SQUAMOUS EPITHELIAL CELL,UR FEW /LPF (NONE/OCC); UROBILINOGEN,URINE NORMAL MG/DL (0.0-1.0)
--- NOTE | 2016-12-18 22:00 | History and Physical Report ---
DATE OF ADMISSION: 12/18/2016 CHIEF COMPLAINT: The patient is a 71-year-old female, presents with chief complaint of abdominal pain. HISTORY OF PRESENT ILLNESS: The patient was admitted to [facility] from through 10/19/2016. Please see history and physical and discharge summary dictated at that time. The patient began to experience abdominal pain yesterday, 12/17/2016. Pain is epigastric. There is no radiation to the chest or to the shoulder. The patient denies nausea or vomiting. The patient presented to [facility] emergency room. The patient was admitted for epigastric pain to rule out peptic ulcer disease versus cholelithiasis. PAST MEDICAL HISTORY: Significant for 1. Chronic obstructive pulmonary disease. 2. Congestive heart failure. 3. Cardiomyopathy. 4. Diabetes type 2. 5. Hypertension. 6. History of cerebrovascular accident. 7. Right hemiparesis. 8. History of cervical cancer, status post total abdominal hysterectomy. 9. Iron deficiency anemia. 10. Complete left bundle-branch block, status post AICD placement. PAST SURGICAL HISTORY: Significant for 1. Total abdominal hysterectomy. 2. Appendectomy. 3. AICD placement in November 2015. CURRENT MEDICATIONS: 1. Aspirin 81 mg one tablet p.o. daily. 2. Lipitor 40 mg one tablet p.o. at bedtime. 3. Coreg 3.125 mg p.o. twice daily. 4. Clopidogrel 75 mg one tablet p.o. daily. 5. Nexium 40 mg one tablet p.o. daily. 6. Lasix 20 mg one tablet p.o. daily. 7. Lantus insulin subcutaneously at bedtime. 8. NovoLog sliding scale. 9. Isordil 30 mg one tablet p.o. daily. 10. Claritin 10 mg one tablet p.o. daily. 11. Omeprazole 20 mg one tablet p.o. daily. 12. Lyrica 50 mg one tablet p.o. twice daily. 13. Aldactone 25 mg one tablet p.o. daily. ALLERGIES: No known drug allergies. SOCIAL HISTORY: The patient is single and lives with her adult son. The patient denies tobacco or alcohol use. REVIEW OF SYSTEMS: Constitutional: The patient denies weight loss or weight gain. The patient denies fevers or chills. HEENT: The patient denies ear or throat pain. The patient denies headache. Cardiovascular: The patient denies palpitations or chest pain. Chest: The patient denies wheeze or shortness of breath. Abdomen: The patient complains of epigastric pain as above. The patient denies nausea, vomiting, diarrhea, or constipation. Genitourinary: The patient denies dysuria or increased frequency of urination. Neuromuscular: The patient denies seizures or generalized weakness. PHYSICAL EXAMINATION: GENERAL: The patient is a well-developed and well-nourished female, in no apparent distress. VITAL SIGNS: Temperature 97.4 degrees, respirations 22, pulse 72, and blood pressure 93/41. HEENT: Eyes, pupils are equal and responsive to light and accommodation. Extraocular movements are intact. NECK: Supple. No lymphadenopathy. CHEST: Lungs are clear to auscultation bilaterally without wheezes or rales. CARDIOVASCULAR: Regular rhythm and rate. S1 and S2 are normal without murmurs, rubs, or gallops. ABDOMEN: Soft and nondistended with positive bowel sounds. There is tenderness to palpation epigastric region. There is no rebound or guarding. EXTREMITIES: No clubbing, cyanosis, or edema. RECTAL: Refused. GENITALIA: Refused. NEUROLOGIC: Cranial nerves II through XII are grossly intact without focal deficits. The patient does have a right-sided weakness. LABORATORY AND DIAGNOSTIC DATA: WBC 14.3, hemoglobin 10.7, hematocrit 35.0 and platelets 243,000. Sodium 135, potassium 5.2, chloride 97, CO2 16, BUN 49, creatinine 2.2 and glucose 236, urinalysis showed 2+ occult blood with 1+ bilirubin, leukocyte esterase 3+, and WBCs too numerous to count. ASSESSMENT: This is a 71-year-old female 1. Urinary tract infection. 2. Renal failure. 3. Leukocytosis. 4. Epigastric pain. 5. Chronic obstructive pulmonary disease. 6. Congestive heart failure. 7. Cardiomyopathy. 8. Diabetes type 2. 9. Hypertension. 10. Cerebrovascular disease. 11. Right hemiparesis. 12. Iron deficiency anemia. 13. Left bundle-branch block. TREATMENT: 1. Urinary tract infection. The patient is placed empirically on intravenous Zosyn. A urine culture is pending. We will await ID and sensitivity. 2. Renal failure, this may be secondary to urinary tract infection as above, this may also be secondary to dehydration. 3. Leukocytosis prior secondary to urinary tract infection as above. 4. Epigastric pain. A Gastroenterology consultation obtained with Dr. Ángel Leal. The patient had an endoscopy at [facility] in 2014. We will follow recommendations of Gastroenterology. 5. Chronic obstructive pulmonary disease. 6. Congestive heart failure. 7. cardiomyopathy. 8. Diabetes type 2. Continue Lantus and regular insulin sliding scale as above. 9. Hypertension. Continue Coreg as above. 10. Cerebrovascular disease. 11. Right hemiparesis. 12. Iron deficiency anemia. 13. Left bundle-branch block. The patient is status post AICD placement. Ash Li M.D. DR: ALFREDO JOB#: [id number] CC:
[2016-12-19] VITALS: BP 106/56
[2016-12-19] MEDS ORDERED: Zosyn 3.375gm inj ONE (01:55)
[2016-12-19] MEDS: Piperacillin/Tazobactam 3.375 GM in NS 110 ML IVPB SCH ×3 (02:02→22:05)
[2016-12-19 04:00] VITALS: BP 108/59
[2016-12-19] MEDS: Morphine Sulfate 2mg/ml Inj IVP PRN (06:06)
[2016-12-19] MEDS: Insulin NovoLOG Flexpen S/S (Mod) SUBQ SCH ×4 (06:30→20:57)
[2016-12-19 07:47] LABS: BASOPHILS % (AUTO) 0.9 % (0.0-2.0); EOSINOPHILS % (AUTO) 2.3 % (0.0-3.0); LYMPHOCYTES % (AUTO) 12.7 % (20.0-45.0); MEAN CORPUSCULAR HEMOGLOBIN 25.7 PG (27.0-31.0); MEAN CORPUSCULAR HGB CONC 30.9 G/DL (32.0-36.0); MEAN CORPUSCULAR VOLUME 83 FL (80-99); MEAN PLATELET VOLUME 9.3 FL (6.5-10.1); MONOCYTES % (AUTO) 9.3 % (1.0-10.0); NEUTROPHILS % (AUTO) 74.8 % (45.0-75.0); PLATELET COUNT 171 K/UL (150-450); RED BLOOD COUNT 4.07 M/UL (4.20-5.40); RED CELL DISTRIBUTION WIDTH 14.8 % (11.6-14.8); WHITE BLOOD COUNT 16.4 K/UL (4.8-10.8)
[2016-12-19 08:00] VITALS: BP 115/73
[2016-12-19 08:05] LABS: ALBUMIN/GLOBULIN RATIO 0.8 (1.0-2.7); CALCIUM 8.5 mg/dL (8.6-10.2); CREATININE 1.5 mg/dL (0.5-0.9); GLOMERULAR FILTRATION RATE 34.4 mL/min (>60); TOTAL PROTEIN 6.9 g/dL (6.6-8.7)
[2016-12-19] MEDS: Spironolactone 25mg tab ORAL SCH (10:00)
[2016-12-19] MEDS: Lyrica 50mg cap ORAL SCH ×2 (10:00→17:54)
[2016-12-19] MEDS: D5 1/2NS 1,000 ML IV SCH (10:02)
[2016-12-19] MEDS: Heparin 5000 units/ml inj SUBQ SCH ×2 (10:03→20:56)
[2016-12-19] MEDS: Pantoprazole Inj IVP SCH (10:20)
--- NOTE | 2016-12-19 10:26 | Diagnostic Imaging Report ---
Indications: Shortness of breath Technique: Portable AP chest Findings: Comparison: 07/06/2016 Inspiratory effort has decreased. Cardiac silhouette remains mildly enlarged. Pulmonary vascular redistribution has increased. Bilateral interstitial infiltrates have developed. Hazy opacity has developed in the right upper lobe. No pleural abnormality demonstrated. IMPRESSION: Findings suggest development of mild congestive change Superimposed pneumonia right upper lobe not excludable. Followup to resolution recommended.
--- NOTE | 2016-12-19 11:58 | Consultation ---
History of Present Illness General Date patient seen: Dec 18, 2016 Time patient seen: 11:50 Chief Complaint: Abdominal Pain Referring physician: Dr umana Reason for Consultation: dyspnea, inpatient managemtn Present Illness HPI 71-year-old female with hx of pacemaker, CHF, Obesity, COPD, DM, presented after increased abdominal pain. Patient reports having had generalized pain. She reported having some increased the abdominal discomfort which was worsened by supine position. Her initial CXR showed mild pulmonary edema, she had pyuria , and leukocytosis. She is admitted to [facility] for further work up. Allergies: Coded Allergies: No Known Allergies (Unverified , 12/18/16) Medication History Scheduled Aspirin Ec* (Aspirin Ec*), 81 MG ORAL DAILY, (Reported) Atorvastatin Calcium* (Atorvastatin Calcium*), 40 MG ORAL BEDTIME, (Reported) Carvedilol (Coreg), 3.125 MG ORAL EVERY 12 HOURS Clopidogrel* (Clopidogrel*), 75 MG ORAL DAILY, (Reported) Esomeprazole Magnesium (Nexium), 40 MG ORAL DAILY, (Reported) Furosemide* (Lasix*), 20 MG ORAL DAILY, (Reported) Insulin Aspart (Novolog Flexpen), 0 UNITS SUBQ BEFORE MEALS AND HS Insulin Glargine (Lantus), 0 SUBQ BEDTIME, (Reported) Isosorbide Dinitrate* (Isordil*), 30 MG ORAL DAILY, (Reported) Loratadine (Loratadine), 10 MG PO DAILY, (Reported) Omeprazole (Omeprazole), 20 MG ORAL DAILY, (Reported) Polyethylene Glycol 3350* (Polyethylene Glycol 3350*), 17 GM ORAL DAILY, ( Reported) Pregabalin (Lyrica), 50 MG ORAL BID, (Reported) Spironolactone* (Aldactone*), 25 MG ORAL DAILY, (Reported) Scheduled PRN Acetaminophen* (Tylenol Extra Strength*), 500 MG ORAL Q6H PRN for Mild Pain/ Temp > 100.5, (Reported) Miscellaneous Medications Simethicone (Mi-Acid), 80 MG PO, (Reported) Patient History Healthcare decision maker Resuscitation status Full Code Advanced Directive on File Past Medical/Surgical History Past Medical/Surgical History: (1) EF 25% (2) Obesity (3) Hemiparesis, right (4) Diabetes mellitus (5) COPD (chronic obstructive pulmonary disease) Review of Systems All Other Systems: negative except mentioned in HPI Physical Exam General Appearance: WD/WN Lines, tubes and drains: peripheral HEENT: normocephalic, atraumatic Neck: non-tender, normal alignment Respiratory/Chest: chest wall non-tender, lungs clear Cardiovascular/Chest: normal peripheral pulses, normal rate Abdomen: normal bowel sounds, non tender, tender - in right side Genitourinary/Rectal: normal genital exam Extremities: normal range of motion Skin Exam: normal pigmentation Last 24 Hour Vital Signs Date Time Temp Pulse Resp B/P Pulse Ox O2 Delivery O2 Flow Rate FiO2 12/19/16 10:00 97 115/73 12/19/16 08:00 97.4 97 20 115/73 97 Nasal Cannula 2.0 12/19/16 04:00 97.7 97 22 108/59 99 Nasal Cannula 2.0 12/19/16 04:00 97 12/19/16 00:00 97.9 96 20 106/56 98 Nasal Cannula 2.0 12/19/16 00:00 98 12/18/16 20:51 104 112/62 12/18/16 20:00 97.9 105 20 103/46 97 Nasal Cannula 2.0 12/18/16 20:00 106 12/18/16 16:00 98.7 114 21 115/54 99 Nasal Cannula 99 12/18/16 16:00 113 12/18/16 13:22 97.4 90 22 107/49 100 Nasal Cannula 2.0 12/18/16 13:14 97.4 90 22 107/49 100 Nasal Cannula 2.0 Intake and Output 12/18/16 12/19/16 19:00 07:00 Intake Total 907.5 ml 1055.0 ml Balance 907.5 ml 1055.0 ml Intake Oral 120 ml IV Total 907.5 ml 935.0 ml # Voids 7 # Bowel Movements 1 1 Laboratory Tests Test 12/18/16 17:15 12/19/16 06:55 Urine Color Pale yellow Urine Appearance Slightly cloudy Urine pH 6.5 (4.5-8.0) Urine Specific [place] 1.005 (1.005-1.035) Urine Protein 1+ (NEGATIVE) H Urine Glucose (UA) 2+ (NEGATIVE) H Urine Ketones Negative (NEGATIVE) Urine Occult Blood Negative (NEGATIVE) Urine Nitrite Negative (NEGATIVE) Urine Bilirubin Negative (NEGATIVE) Urine Urobilinogen Normal MG/DL (0.0-1.0) Urine Leukocyte Esterase 2+ (NEGATIVE) H Urine RBC 0-2 /HPF (0 - 2) Urine WBC 10-15 /HPF (0 - 2) H Urine Squamous Epithelial Cells Few /LPF (NONE/OCC) Urine Bacteria Few /HPF (NONE) White Blood Count 16.4 K/UL (4.8-10.8) H Red Blood Count 4.07 M/UL (4.20-5.40) L Hemoglobin 10.5 G/DL (12.0-16.0) L Hematocrit 33.9 % (37.0-47.0) L Mean Corpuscular Volume 83 FL (80-99) Mean Corpuscular Hemoglobin 25.7 PG (27.0-31.0) L Mean Corpuscular Hemoglobin Concent 30.9 G/DL (32.0-36.0) L Red Cell Distribution Width 14.8 % (11.6-14.8) Platelet Count 171 K/UL (150-450) Mean Platelet Volume 9.3 FL (6.5-10.1) Neutrophils (%) (Auto) 74.8 % (45.0-75.0) Lymphocytes (%) (Auto) 12.7 % (20.0-45.0) L Monocytes (%) (Auto) 9.3 % (1.0-10.0) Eosinophils (%) (Auto) 2.3 % (0.0-3.0) Basophils (%) (Auto) 0.9 % (0.0-2.0) Activated Partial Thromboplast Time 22 SEC (23-33) L Sodium Level 140 mEQ/L (135-145) Potassium Level 5.0 mEQ/L (3.4-4.9) H Chloride Level 108 mEQ/L (98-107) H Carbon Dioxide Level 22 mEQ/L (20-30) Anion Gap 10 (5-15) Blood Urea Nitrogen 29 mg/dL (7-23) H Creatinine 1.5 mg/dL (0.5-0.9) H Estimat Glomerular Filtration Rate 34.4 mL/min (>60) Glucose Level 255 mg/dL (74-106) H Calcium Level 8.5 mg/dL (8.6-10.2) L Total Bilirubin 0.4 mg/dL (0.0-1.2) Aspartate Amino Transf (AST/SGOT) 12 U/L (5-40) Alanine Aminotransferase (ALT/SGPT) 7 U/L (3-33) Alkaline Phosphatase 103 U/L (35-104) Total Protein 6.9 g/dL (6.6-8.7) Albumin 3.1 g/dL (3.5-5.2) L Globulin 3.8 g/dL Albumin/Globulin Ratio 0.8 (1.0-2.7) L Amylase Level 33 U/L (10-110) Lipase 22 U/L (< 60) Microbiology Date/Time Source Procedure Growth Status 12/18/16 17:15 Straight Cath Urine Culture - Preliminary NO GROWTH Resulted Height (Feet): 5 Height (Inches): 1.00 Weight (Pounds): 172 Medications Current Medications Medications (Trade) Dose Ordered Sig/[place] Route PRN Reason Start Time Stop Time Status Last Admin Dose Admin Acetaminophen (Tylenol) 650 mg Q4H PRN ORAL fever 12/18/16 08:00 01/17/17 07:59 Al Hydroxide/Mg Hydroxide (Mylanta II) 30 ml Q6H PRN ORAL dyspepsia 12/18/16 08:00 01/17/17 07:59 Carvedilol (Coreg) 3.125 mg EVERY 12 HOURS ORAL 12/18/16 10:00 01/17/17 09:59 12/19/16 10:00 Clopidogrel Bisulfate (Plavix) 75 mg DAILY ORAL 12/18/16 10:00 01/17/17 09:59 12/19/16 09:59 Dextrose (Dextrose 50%) STAT PRN IV Hypoglycemia 12/18/16 08:00 01/17/17 07:59 Dextrose/Sodium Chloride (D5 0.45% NS) 1,000 ml @ 75 mls/hr [id number] IV 12/18/16 08:30 01/17/17 08:29 12/19/16 10:02 Diphenhydramine HCl (Benadryl) 25 mg Q6H PRN ORAL Itching/Pruritis 12/18/16 08:00 01/17/17 07:59 Heparin Sodium (Porcine) (Heparin 5000 units/ml) 5,000 units EVERY 12 HOURS SUBQ 12/18/16 10:00 01/17/17 09:59 12/19/16 10:03 Insulin Aspart No Dose BEFORE MEALS AND HS SUBQ 12/18/16 12:00 01/17/17 11:59 12/18/16 16:44 Morphine Sulfate (Morphine Sulfate) 2 mg Q4H PRN IVP severe Pain (Pain Scale 7-10) 12/18/16 08:00 12/25/16 07:59 12/19/16 06:06 Nitroglycerin (Ntg) 0.4 mg Q5M X 3 DOSES PRN SL Prn Chest Pain 12/18/16 08:00 01/17/17 07:59 Ondansetron HCl (Zofran) 4 mg Q6H PRN IVP Nausea & Vomiting 12/18/16 08:00 01/17/17 07:59 Pantoprazole (Protonix) 40 mg DAILY IVP 12/18/16 10:00 01/17/17 09:59 12/19/16 10:20 Piperacillin Sod/ Tazobactam Sod/ Sodium Chloride (Zosyn/Sodium Chloride) 110 ml @ 27.5 mls/hr Q12HR@0200,1400 IVPB 12/18/16 14:00 12/25/16 13:59 12/19/16 02:02 Polyethylene Glycol (Miralax) 17 gm HSPRN PRN ORAL Constipation 12/18/16 08:00 01/17/17 07:59 Pregabalin (Lyrica) 50 mg BID ORAL 12/18/16 10:00 01/17/17 09:59 12/19/16 10:00 Spironolactone 25 mg 25 mg DAILY ORAL 12/18/16 10:00 01/17/17 09:59 12/19/16 10:00 Temazepam (Restoril) 15 mg HSPRN PRN ORAL Insomnia 12/18/16 08:00 12/25/16 07:59 Assessment/Plan Problem List: (1) Intractable abdominal pain ICD Codes: R10.9 - Unspecified abdominal pain SNOMED: 73486046, 847664159 (2) Acute kidney injury ICD Codes: N17.9 - Acute kidney failure, unspecified SNOMED: 53075389 (3) EF 25% (4) Hemiparesis, right ICD Codes: G81.91 - Hemiplegia, unspecified affecting right dominant side SNOMED: 618600661 (5) Diabetes mellitus ICD Codes: E11.9 - Type 2 diabetes mellitus without complications SNOMED: 41693015 (6) COPD (chronic obstructive pulmonary disease) ICD Codes: J44.9 - Chronic obstructive pulmonary disease, unspecified SNOMED: 37817835 (7) E. coli UTI ICD Codes: N39.0 - Urinary tract infection, site not specified; B96.20 - Unspecified Escherichia coli [E. coli] as the cause of diseases classified elsewhere SNOMED: 986668477 (8) AICD (automatic cardioverter/defibrillator) present ICD Codes: Z95.810 - Presence of automatic (implantable) cardiac defibrillator SNOMED: 08858926, 639325993 (9) Obesity ICD Codes: E66.9 - Obesity, unspecified SNOMED: 611908615 (10) Diabetic nephropathy ICD Codes: E11.21 - Type 2 diabetes mellitus with diabetic nephropathy SNOMED: 168600309 Assessment/Plan NPO davis culture abdominal US GI evaluation symptomatic treatment IV antibiotics check cultures ERVIN COHN Dec 19, 2016 11:58
[2016-12-19 12:00] VITALS: BP 131/66
--- NOTE | 2016-12-19 12:02 | Pulmonology Progress Note ---
Assessment/Plan Problems: (1) Intractable abdominal pain (2) Acute kidney injury (3) EF 25% (4) Hemiparesis, right (5) Diabetes mellitus (6) COPD (chronic obstructive pulmonary disease) (7) E. coli UTI (8) AICD (automatic cardioverter/defibrillator) present (9) Obesity (10) Diabetic nephropathy Assessment/Plan keep npo IV fluids iv antibiotics check cultures GI consult pending US abdomen pending r/o cholecystitis watch fluid balance HR/ BP controlled Subjective ROS Limited/Unobtainable: No Constitutional: Reports: no symptoms HEENT: Repors: no symptoms Cardiovascular: Reports: no symptoms Gastrointestinal/Abdominal: Reports: no symptoms Allergies: Coded Allergies: No Known Allergies (Unverified , 12/18/16) Objective Last 24 Hour Vital Signs Date Time Temp Pulse Resp B/P Pulse Ox O2 Delivery O2 Flow Rate FiO2 12/19/16 10:00 97 115/73 12/19/16 08:00 97.4 97 20 115/73 97 Nasal Cannula 2.0 12/19/16 04:00 97.7 97 22 108/59 99 Nasal Cannula 2.0 12/19/16 04:00 97 12/19/16 00:00 97.9 96 20 106/56 98 Nasal Cannula 2.0 12/19/16 00:00 98 12/18/16 20:51 104 112/62 12/18/16 20:00 97.9 105 20 103/46 97 Nasal Cannula 2.0 12/18/16 20:00 106 12/18/16 16:00 98.7 114 21 115/54 99 Nasal Cannula 99 12/18/16 16:00 113 12/18/16 13:22 97.4 90 22 107/49 100 Nasal Cannula 2.0 12/18/16 13:14 97.4 90 22 107/49 100 Nasal Cannula 2.0 Intake and Output 12/18/16 12/19/16 19:00 07:00 Intake Total 907.5 ml 1055.0 ml Balance 907.5 ml 1055.0 ml Intake Oral 120 ml IV Total 907.5 ml 935.0 ml # Voids 7 # Bowel Movements 1 1 General Appearance: WD/WN HEENT: normocephalic, anicteric Respiratory/Chest: chest wall non-tender, lungs clear, normal breath sounds Abdomen: normal bowel sounds, soft, non tender, no organomegaly Microbiology Date/Time Source Procedure Growth Status 12/18/16 05:00 Blood Blood Culture - Preliminary NO GROWTH AFTER 24 HOURS Resulted 12/18/16 04:45 Blood Blood Culture - Preliminary NO GROWTH AFTER 24 HOURS Resulted 12/18/16 17:15 Straight Cath Urine Culture - Preliminary NO GROWTH Resulted 12/18/16 05:30 Urine,Clean Catch Urine Culture - Preliminary Gram Negative Bacillus 1 Resulted Laboratory Tests 12/18/16 17:15: Urine Color Pale yellow, Urine Appearance Slightly cloudy, Urine pH 6.5, Urine Specific [place] 1.005, Urine Protein 1+H, Urine Glucose (UA) 2+H, Urine Ketones Negative, Urine Occult Blood Negative, Urine Nitrite Negative, Urine Bilirubin Negative, Urine Urobilinogen Normal, Urine Leukocyte Esterase 2+H, Urine RBC 0-2, Urine WBC 10-15H, Urine Squamous Epithelial Cells Few, Urine Bacteria Few 12/19/16 06:55: White Blood Count 16.4H, Red Blood Count 4.07L, Hemoglobin 10.5L, Hematocrit 33.9L, Mean Corpuscular Volume 83, Mean Corpuscular Hemoglobin 25.7L, Mean Corpuscular Hemoglobin Concent 30.9L, Red Cell Distribution Width 14.8, Platelet Count 171, Mean Platelet Volume 9.3, Neutrophils (%) (Auto) 74.8, Lymphocytes (%) (Auto) 12.7L, Monocytes (%) (Auto) 9.3, Eosinophils (%) (Auto) 2.3, Basophils (%) (Auto) 0.9, Activated Partial Thromboplast Time 22L, Sodium Level 140, Potassium Level 5.0H, Chloride Level 108H, Carbon Dioxide Level 22, Anion Gap 10, Blood Urea Nitrogen 29H, Creatinine 1.5H, Estimat Glomerular Filtration Rate 34.4, Glucose Level 255H, Calcium Level 8.5L, Total Bilirubin 0.4, Aspartate Amino Transf (AST/SGOT) 12, Alanine Aminotransferase (ALT/SGPT) 7 , Alkaline Phosphatase 103, Total Protein 6.9, Albumin 3.1L, Globulin 3.8, Albumin/Globulin Ratio 0.8L, Amylase Level 33, Lipase 22 Current Medications Medications (Trade) Dose Ordered Sig/[place] Route PRN Reason Start Time Stop Time Status Last Admin Dose Admin Acetaminophen (Tylenol) 650 mg Q4H PRN ORAL fever 12/18/16 08:00 01/17/17 07:59 Al Hydroxide/Mg Hydroxide (Mylanta II) 30 ml Q6H PRN ORAL dyspepsia 12/18/16 08:00 01/17/17 07:59 Carvedilol (Coreg) 3.125 mg EVERY 12 HOURS ORAL 12/18/16 10:00 01/17/17 09:59 12/19/16 10:00 Clopidogrel Bisulfate (Plavix) 75 mg DAILY ORAL 12/18/16 10:00 01/17/17 09:59 12/19/16 09:59 Dextrose (Dextrose 50%) STAT PRN IV Hypoglycemia 12/18/16 08:00 01/17/17 07:59 Dextrose/Sodium Chloride (D5 0.45% NS) 1,000 ml @ 75 mls/hr [id number] IV 12/18/16 08:30 01/17/17 08:29 12/19/16 10:02 Diphenhydramine HCl (Benadryl) 25 mg Q6H PRN ORAL Itching/Pruritis 12/18/16 08:00 01/17/17 07:59 Heparin Sodium (Porcine) (Heparin 5000 units/ml) 5,000 units EVERY 12 HOURS SUBQ 12/18/16 10:00 01/17/17 09:59 12/19/16 10:03 Insulin Aspart No Dose BEFORE MEALS AND HS SUBQ 12/18/16 12:00 01/17/17 11:59 12/18/16 16:44 Morphine Sulfate (Morphine Sulfate) 2 mg Q4H PRN IVP severe Pain (Pain Scale 7-10) 12/18/16 08:00 12/25/16 07:59 12/19/16 06:06 Nitroglycerin (Ntg) 0.4 mg Q5M X 3 DOSES PRN SL Prn Chest Pain 12/18/16 08:00 01/17/17 07:59 Ondansetron HCl (Zofran) 4 mg Q6H PRN IVP Nausea & Vomiting 12/18/16 08:00 01/17/17 07:59 Pantoprazole (Protonix) 40 mg DAILY IVP 12/18/16 10:00 01/17/17 09:59 12/19/16 10:20 Piperacillin Sod/ Tazobactam Sod/ Sodium Chloride (Zosyn/Sodium Chloride) 110 ml @ 27.5 mls/hr Q12HR@0200,1400 IVPB 12/18/16 14:00 12/25/16 13:59 12/19/16 02:02 Polyethylene Glycol (Miralax) 17 gm HSPRN PRN ORAL Constipation 12/18/16 08:00 01/17/17 07:59 Pregabalin (Lyrica) 50 mg BID ORAL 12/18/16 10:00 01/17/17 09:59 12/19/16 10:00 Spironolactone 25 mg 25 mg DAILY ORAL 12/18/16 10:00 01/17/17 09:59 12/19/16 10:00 Temazepam (Restoril) 15 mg HSPRN PRN ORAL Insomnia 12/18/16 08:00 12/25/16 07:59 ERVIN COHN Dec 19, 2016 12:02
--- NOTE | 2016-12-19 12:40 | GI Initial Consult Note ---
Rizwana Cotton NWindy 12/19/16 1240: History of Present Illness General Date patient seen: Dec 19, 2016 Time patient seen: 10:00 Reason for Hospitalization: Abdominal Pain Referring physician: Dr wright Reason for Consultation: Abdominal Pain Present Illness HPI Patient 71-year-old female presented after increased abdominal pain. Patient reports having had generalized pain. She reported having some increased the abdominal discomfort which was worsened by supine position. Patient prior history of congestive heart failure as well as a pacemaker placement she is also noted be diabetic. She is followed by Dr. Wright. GI CONSULT: HPI as noted above. GI consulted for abdominal pain. Pt seen on floor, awake A&Ox4 NAD with no s/sx of distress. Pt presents today with RUQ abdominal pain 12/19, anemia, iron deficiency, elevated alkaline phosphatase and elevated triglyceride level. Normal EGD/colonoscopy performed in 2014. Abd U/ S and APCT noted, see report below. Pt was last admitted in October for abdominal pain. Hx of hepatomegaly with fatty infiltration. PROCEDURE: Upper gastrointestinal endoscopy with biopsy as well as colonoscopy with biopsy. SURGEON: Sera Chaves M.D. 03/17/2015 03:41 POST-ENDOSCOPIC DIAGNOSES: 1. Normal upper endoscopy, status post random biopsies of the antrum. 2. Normal colonoscopy, status post random biopsy of the transverse colon. Home Meds Active Scripts Carvedilol (Coreg) 6.25 Mg Tablet, 6.25 MG ORAL EVERY 12 HOURS for 30 Days, TAB Prov:JOVANA AGUILAR 12/21/16 Insulin Aspart (Novolog Flexpen) 100 Units/Ml Pen, 0 UNITS SUBQ BEFORE MEALS AND HS, #1 EA Prov:Suzie Jin CARDIOLOGY MANAGER 07/27/15 Reported Medications Polyethylene Glycol 3350* (POLYETHYLENE GLYCOL 3350*) 17 Gm Powd.pack, 17 GM ORAL DAILY, PACKET 12/18/16 Furosemide* (LASIX*) 20 Mg Tablet, 20 MG ORAL DAILY, TAB 12/18/16 Spironolactone* (ALDACTONE*) 25 Mg Tablet, 25 MG ORAL DAILY, TAB 12/18/16 Acetaminophen* (TYLENOL EXTRA STRENGTH*) 500 Mg Tablet, 500 MG ORAL Q6H Y for Mild Pain/Temp > 100.5, TAB 0 Refills 10/11/16 Omeprazole (OMEPRAZOLE) 20 Mg Capsule.dr, 20 MG ORAL DAILY, CAP 10/11/16 Simethicone (VA-ACID) 80 Mg Tab.chew, 80 MG PO, TAB 10/11/16 Clopidogrel* (CLOPIDOGREL*) 75 Mg Tablet, 75 MG ORAL DAILY, TAB 10/11/16 Insulin Glargine (LANTUS) 100 Unit/1 Ml Insuln.pen, 0 SUBQ BEDTIME, #1 EA 0 Refills 03/19/16 Aspirin Ec* (ASPIRIN EC*) 81 Mg Tablet.dr, 81 MG ORAL DAILY, TAB 02/28/16 Pregabalin (Lyrica) 50 Mg Capsule, 50 MG ORAL BID, CAP 02/28/16 Loratadine (LORATADINE) 10 Mg Tab.rapdis, 10 MG PO DAILY, TAB 02/28/16 Esomeprazole Magnesium (NEXIUM) 40 Mg Capsule.dr, 40 MG ORAL DAILY, CAP 02/28/16 Isosorbide Dinitrate* (ISORDIL*) 30 Mg Tablet, 30 MG ORAL DAILY, TAB 0 Refills 02/28/16 Atorvastatin Calcium* (ATORVASTATIN CALCIUM*) 20 Mg Tablet, 40 MG ORAL BEDTIME, TAB 11/06/15 Discontinued Scripts Carvedilol (Coreg) 3.125 Mg Tablet, 3.125 MG ORAL EVERY 12 HOURS for 30 Days, TAB Prov:JOVANA AGUILAR 07/11/16 Med list reviewed/reconciled: Yes Allergies: Coded Allergies: No Known Allergies (Unverified , 12/18/16) Patient History History Provided By: Patient, Medical Record PMH Narrative Past Medical History: see triage record Past Surgical History: pacemaker Last Menstrual Period: n/a Reviewed Nursing Documentation: PMH: Agreed, PSxH: Agreed Nursing Documentation-PMH Past Medical History: No History, Except For Hx Cardiac Problems: Yes Hx Hypertension: Yes Hx Pacemaker: Yes - LEFT Hx COPD: Yes Hx Diabetes: Yes Hx Cancer: Yes - uterine and cervical Hx Gastrointestinal Problems: Yes Hx Neurological Problems: Yes Hx Cerebrovascular Accident: Yes Hx Dementia: No Hx Alzheimer's Disease: No Hx Parkinson's Disease: No Hx Meningitis: No Hx Epilepsy: No Hx Multiple Sclerosis: No Hx Cerebral Palsy: No Hx Amyotrophic Lat Sclerosis: No Hx Guillian-Knott Syndrome: No Hx Paralysis: Yes - right sided hemiplegia Hx Peripheral Neuropathy: Yes Hx Spinal Cord Injury: No Hx Head Trauma: No Hx Traumatic Brain Injury: No Hx Memory Loss: No Hx Concentration Difficulty: Yes Hx Speech Problem: No Hx Tremors: Yes Hx Vertigo: No Hx Dizziness: Yes Hx Syncope: No Hx Headaches: No Hx Aphasia: No Hx Dysphasia: No Hx Numbness: Yes Hx Weakness: Yes Hx Fatigue: No Hx Neurologic Surgery: No Hx Brain Shunt: No Review of Systems All Other Systems: negative except mentioned in HPI Physical Exam Vital Signs Date Time Temp Pulse Resp B/P Pulse Ox O2 Delivery O2 Flow Rate FiO2 12/18/16 02:20 97.0 97 27 116/53 92 Room Air 12/18/16 04:39 2.0 12/18/16 16:00 99 Sp02 EP Interpretation: reviewed Labs Laboratory Tests Test 12/18/16 17:15 12/19/16 06:55 Urine Color Pale yellow Urine Appearance Slightly cloudy Urine pH 6.5 (4.5-8.0) Urine Specific Dolph 1.005 (1.005-1.035) Urine Protein 1+ (NEGATIVE) H Urine Glucose (UA) 2+ (NEGATIVE) H Urine Ketones Negative (NEGATIVE) Urine Occult Blood Negative (NEGATIVE) Urine Nitrite Negative (NEGATIVE) Urine Bilirubin Negative (NEGATIVE) Urine Urobilinogen Normal MG/DL (0.0-1.0) Urine Leukocyte Esterase 2+ (NEGATIVE) H Urine RBC 0-2 /HPF (0 - 2) Urine WBC 10-15 /HPF (0 - 2) H Urine Squamous Epithelial Cells Few /LPF (NONE/OCC) Urine Bacteria Few /HPF (NONE) White Blood Count 16.4 K/UL (4.8-10.8) H Red Blood Count 4.07 M/UL (4.20-5.40) L Hemoglobin 10.5 G/DL (12.0-16.0) L Hematocrit 33.9 % (37.0-47.0) L Mean Corpuscular Volume 83 FL (80-99) Mean Corpuscular Hemoglobin 25.7 PG (27.0-31.0) L Mean Corpuscular Hemoglobin Concent 30.9 G/DL (32.0-36.0) L Red Cell Distribution Width 14.8 % (11.6-14.8) Platelet Count 171 K/UL (150-450) Mean Platelet Volume 9.3 FL (6.5-10.1) Neutrophils (%) (Auto) 74.8 % (45.0-75.0) Lymphocytes (%) (Auto) 12.7 % (20.0-45.0) L Monocytes (%) (Auto) 9.3 % (1.0-10.0) Eosinophils (%) (Auto) 2.3 % (0.0-3.0) Basophils (%) (Auto) 0.9 % (0.0-2.0) Activated Partial Thromboplast Time 22 SEC (23-33) L Sodium Level 140 mEQ/L (135-145) Potassium Level 5.0 mEQ/L (3.4-4.9) H Chloride Level 108 mEQ/L (98-107) H Carbon Dioxide Level 22 mEQ/L (20-30) Anion Gap 10 (5-15) Blood Urea Nitrogen 29 mg/dL (7-23) H Creatinine 1.5 mg/dL (0.5-0.9) H Estimat Glomerular Filtration Rate 34.4 mL/min (>60) Glucose Level 255 mg/dL (74-106) H Calcium Level 8.5 mg/dL (8.6-10.2) L Total Bilirubin 0.4 mg/dL (0.0-1.2) Aspartate Amino Transf (AST/SGOT) 12 U/L (5-40) Alanine Aminotransferase (ALT/SGPT) 7 U/L (3-33) Alkaline Phosphatase 103 U/L (35-104) Total Protein 6.9 g/dL (6.6-8.7) Albumin 3.1 g/dL (3.5-5.2) L Globulin 3.8 g/dL Albumin/Globulin Ratio 0.8 (1.0-2.7) L Amylase Level 33 U/L (10-110) Lipase 22 U/L (< 60) General Appearance: well appearing, no apparent distress, alert, obese Head: normocephalic EENT: normal ENT inspection Neck: supple Respiratory: normal breath sounds, no respiratory distress Cardiovascular: normal rate Gastrointestinal: normal inspection, non tender, soft Rectal: deferred Genitourinary: no CVA tenderness Musculoskeletal: back normal Neurologic: normal inspection, alert, oriented x3, responsive Psychiatric: normal inspection, judgement/insight normal, memory normal Skin: normal inspection, normal color, no rash, warm/dry Lymphatic: normal inspection, no adenopathy Current Medications Current Medications Medications (Trade) Dose Ordered Sig/[place] Route PRN Reason Start Time Stop Time Status Last Admin Dose Admin Acetaminophen (Tylenol) 650 mg Q4H PRN ORAL fever 12/18/16 08:00 01/17/17 07:59 Al Hydroxide/Mg Hydroxide (Mylanta II) 30 ml Q6H PRN ORAL dyspepsia 12/18/16 08:00 01/17/17 07:59 Carvedilol (Coreg) 3.125 mg EVERY 12 HOURS ORAL 12/18/16 10:00 01/17/17 09:59 12/19/16 10:00 Clopidogrel Bisulfate (Plavix) 75 mg DAILY ORAL 12/18/16 10:00 01/17/17 09:59 12/19/16 09:59 Dextrose (Dextrose 50%) STAT PRN IV Hypoglycemia 12/18/16 08:00 01/17/17 07:59 Dextrose/Sodium Chloride (D5 0.45% NS) 1,000 ml @ 75 mls/hr [id number] IV 12/18/16 08:30 01/17/17 08:29 12/19/16 10:02 Diphenhydramine HCl (Benadryl) 25 mg Q6H PRN ORAL Itching/Pruritis 12/18/16 08:00 01/17/17 07:59 Heparin Sodium (Porcine) (Heparin 5000 units/ml) 5,000 units EVERY 12 HOURS SUBQ 12/18/16 10:00 01/17/17 09:59 12/19/16 10:03 Insulin Aspart No Dose BEFORE MEALS AND HS SUBQ 12/18/16 12:00 01/17/17 11:59 12/18/16 16:44 Morphine Sulfate (Morphine Sulfate) 2 mg Q4H PRN IVP severe Pain (Pain Scale 7-10) 12/18/16 08:00 12/25/16 07:59 12/19/16 06:06 Nitroglycerin (Ntg) 0.4 mg Q5M X 3 DOSES PRN SL Prn Chest Pain 12/18/16 08:00 01/17/17 07:59 Ondansetron HCl (Zofran) 4 mg Q6H PRN IVP Nausea & Vomiting 12/18/16 08:00 01/17/17 07:59 Pantoprazole (Protonix) 40 mg DAILY IVP 12/18/16 10:00 01/17/17 09:59 12/19/16 10:20 Piperacillin Sod/ Tazobactam Sod/ Sodium Chloride (Zosyn/Sodium Chloride) 110 ml @ 27.5 mls/hr Q12HR@0200,1400 IVPB 12/18/16 14:00 12/25/16 13:59 12/19/16 02:02 Polyethylene Glycol (Miralax) 17 gm HSPRN PRN ORAL Constipation 12/18/16 08:00 01/17/17 07:59 Pregabalin (Lyrica) 50 mg BID ORAL 12/18/16 10:00 01/17/17 09:59 12/19/16 10:00 Spironolactone 25 mg 25 mg DAILY ORAL 12/18/16 10:00 01/17/17 09:59 12/19/16 10:00 Temazepam (Restoril) 15 mg HSPRN PRN ORAL Insomnia 12/18/16 08:00 12/25/16 07:59 GI: Plan Problems: (1) EF 25% (2) Diabetes mellitus (3) Obesity (4) UTI (urinary tract infection) (5) Acid reflux (6) Hypoalbuminemia (7) Anemia (8) Iron deficiency anemia Plan Hepatomegaly with fatty infiltration. s/p normal EGD/colonoscopy in 2014 iron deficiency EF - 20% symptomatic treatment at this time anemia work up OB stool r/o GI bleed pain mgmt fu abdominal U/S >> ok to adv to cardiac diet after ppi bowel regime fu labs pt on plavix (must be stopped min 48 hours prior any endoscopic procedures) Discussed with Dr. Trinidad. Thank you for referring this patient, we will follow. ÁNGEL TRINIDAD 12/23/16 0909: History of Present Illness General Reason for Hospitalization: Abdominal Pain Present Illness Home Meds Active Scripts Carvedilol (Coreg) 6.25 Mg Tablet, 6.25 MG ORAL EVERY 12 HOURS for 30 Days, TAB Prov:JOVANA AGUILAR 12/21/16 Insulin Aspart (Novolog Flexpen) 100 Units/Ml Pen, 0 UNITS SUBQ BEFORE MEALS AND HS, #1 EA Prov:Suzie Jin CARDIOLOGY MANAGER 07/27/15 Reported Medications Polyethylene Glycol 3350* (POLYETHYLENE GLYCOL 3350*) 17 Gm Powd.pack, 17 GM ORAL DAILY, PACKET 12/18/16 Furosemide* (LASIX*) 20 Mg Tablet, 20 MG ORAL DAILY, TAB 12/18/16 Spironolactone* (ALDACTONE*) 25 Mg Tablet, 25 MG ORAL DAILY, TAB 12/18/16 Acetaminophen* (TYLENOL EXTRA STRENGTH*) 500 Mg Tablet, 500 MG ORAL Q6H Y for Mild Pain/Temp > 100.5, TAB 0 Refills 10/11/16 Omeprazole (OMEPRAZOLE) 20 Mg Capsule.dr, 20 MG ORAL DAILY, CAP 10/11/16 Simethicone (VA-ACID) 80 Mg Tab.chew, 80 MG PO, TAB 10/11/16 Clopidogrel* (CLOPIDOGREL*) 75 Mg Tablet, 75 MG ORAL DAILY, TAB 10/11/16 Insulin Glargine (LANTUS) 100 Unit/1 Ml Insuln.pen, 0 SUBQ BEDTIME, #1 EA 0 Refills 03/19/16 Aspirin Ec* (ASPIRIN EC*) 81 Mg Tablet.dr, 81 MG ORAL DAILY, TAB 02/28/16 Pregabalin (Lyrica) 50 Mg Capsule, 50 MG ORAL BID, CAP 02/28/16 Loratadine (LORATADINE) 10 Mg Tab.rapdis, 10 MG PO DAILY, TAB 02/28/16 Esomeprazole Magnesium (NEXIUM) 40 Mg Capsule.dr, 40 MG ORAL DAILY, CAP 02/28/16 Isosorbide Dinitrate* (ISORDIL*) 30 Mg Tablet, 30 MG ORAL DAILY, TAB 0 Refills 02/28/16 Atorvastatin Calcium* (ATORVASTATIN CALCIUM*) 20 Mg Tablet, 40 MG ORAL BEDTIME, TAB 11/06/15 Discontinued Scripts Carvedilol (Coreg) 3.125 Mg Tablet, 3.125 MG ORAL EVERY 12 HOURS for 30 Days, TAB Prov:JOVANA AGUILAR 07/11/16 Allergies: Coded Allergies: No Known Allergies (Unverified , 12/18/16) GI: Plan Plan The patient was seen and examined at bedside and all new and available data was reviewed in the patients chart. I agree with the above findings, impression and plan. (Patient seen earlier today. Signature stamp does not reflect patient encounter time.). -Ángel Cotton,[facility] Cosme Emerson.P. Dec 19, 2016 12:40 ÁNGEL TRINIDAD Dec 23, 2016 09:09
[2016-12-19 16:00] VITALS: BP 120/71
[2016-12-19] MEDS ORDERED: D5 1/2NS 1000ml IV ONE (16:18)
[2016-12-19] MEDS ORDERED: NS 275ml ONE (16:18)
--- NOTE | 2016-12-19 18:19 | Internal Med Progress Note ---
Subjective Date of Service: Dec 19, 2016 Physician Name Jovana Aguilar Attending Physician Brendan Wright MD Current Medications Medications (Trade) Dose Ordered Sig/[place] Route PRN Reason Start Time Stop Time Status Last Admin Dose Admin Acetaminophen (Tylenol) 650 mg Q4H PRN ORAL fever 12/18/16 08:00 01/17/17 07:59 Al Hydroxide/Mg Hydroxide (Mylanta II) 30 ml Q6H PRN ORAL dyspepsia 12/18/16 08:00 01/17/17 07:59 Carvedilol (Coreg) 3.125 mg EVERY 12 HOURS ORAL 12/18/16 10:00 01/17/17 09:59 12/19/16 10:00 Clopidogrel Bisulfate (Plavix) 75 mg DAILY ORAL 12/18/16 10:00 01/17/17 09:59 12/19/16 09:59 Dextrose (Dextrose 50%) STAT PRN IV Hypoglycemia 12/18/16 08:00 01/17/17 07:59 Dextrose/Sodium Chloride (D5 0.45% NS) 1,000 ml @ 75 mls/hr [id number] IV 12/18/16 08:30 01/17/17 08:29 12/19/16 10:02 Diphenhydramine HCl (Benadryl) 25 mg Q6H PRN ORAL Itching/Pruritis 12/18/16 08:00 01/17/17 07:59 Heparin Sodium (Porcine) (Heparin 5000 units/ml) 5,000 units EVERY 12 HOURS SUBQ 12/18/16 10:00 01/17/17 09:59 12/19/16 10:03 Insulin Aspart No Dose BEFORE MEALS AND HS SUBQ 12/18/16 12:00 01/17/17 11:59 12/18/16 16:44 Morphine Sulfate (Morphine Sulfate) 2 mg Q4H PRN IVP severe Pain (Pain Scale 7-10) 12/18/16 08:00 12/25/16 07:59 12/19/16 06:06 Nitroglycerin (Ntg) 0.4 mg Q5M X 3 DOSES PRN SL Prn Chest Pain 12/18/16 08:00 01/17/17 07:59 Ondansetron HCl (Zofran) 4 mg Q6H PRN IVP Nausea & Vomiting 12/18/16 08:00 01/17/17 07:59 Pantoprazole (Protonix) 40 mg DAILY IVP 12/18/16 10:00 01/17/17 09:59 12/19/16 10:20 Piperacillin Sod/ Tazobactam Sod/ Sodium Chloride (Zosyn/Sodium Chloride) 110 ml @ 27.5 mls/hr Q8HR IVPB 12/19/16 14:00 12/26/16 13:59 12/19/16 15:14 Polyethylene Glycol (Miralax) 17 gm HSPRN PRN ORAL Constipation 12/18/16 08:00 01/17/17 07:59 Pregabalin (Lyrica) 50 mg BID ORAL 12/18/16 10:00 01/17/17 09:59 12/19/16 17:54 Spironolactone 25 mg 25 mg DAILY ORAL 12/18/16 10:00 01/17/17 09:59 12/19/16 10:00 Temazepam (Restoril) 15 mg HSPRN PRN ORAL Insomnia 12/18/16 08:00 12/25/16 07:59 Allergies: Coded Allergies: No Known Allergies (Unverified , 12/18/16) ROS Limited/Unobtainable: No Constitutional: Reports: no symptoms HEENT: Reports: no symptoms Cardiovascular: Reports: no symptoms Respiratory: Reports: no symptoms Gastrointestinal/Abdominal: Reports: abdominal pain Genitourinary: Reports: no symptoms 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: Reports: no symptoms Subjective 71 YO F admitted with abdominal pain. Now UTI. Cover for Int [place]-Dr Wright Objective Last Vital Signs Date Time Temp Pulse Resp B/P Pulse Ox O2 Delivery O2 Flow Rate FiO2 12/19/16 16:00 97.3 102 21 120/71 98 Nasal Cannula 2.0 12/18/16 16:00 99 General Appearance: WD/WN, no apparent distress, alert EENT: PERRL/EOMI, normal ENT inspection Neck: non-tender, normal alignment, supple Cardiovascular: normal peripheral pulses, normal rate, regular rhythm, no gallop/murmur, no JVD Respiratory/Chest: chest wall non-tender, lungs clear, normal breath sounds, no respiratory distress, no accessory muscle use Abdomen: normal bowel sounds, decreased bowel sounds, guarding, tender Extremities: normal range of motion 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: project control 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0-45.0) L Monocytes (%) (Auto) 9.3 % (1.0-10.0) Eosinophils (%) (Auto) 2.3 % (0.0-3.0) Basophils (%) (Auto) 0.9 % (0.0-2.0) Activated Partial Thromboplast Time 22 SEC (23-33) L Sodium Level 140 mEQ/L (135-145) Potassium Level 5.0 mEQ/L (3.4-4.9) H Chloride Level 108 mEQ/L (98-107) H Carbon Dioxide Level 22 mEQ/L (20-30) Anion Gap 10 (5-15) Blood Urea Nitrogen 29 mg/dL (7-23) H Creatinine 1.5 mg/dL (0.5-0.9) H Estimat Glomerular Filtration Rate 34.4 mL/min (>60) Glucose Level 255 mg/dL (74-106) H Calcium Level 8.5 mg/dL (8.6-10.2) L Total Bilirubin 0.4 mg/dL (0.0-1.2) Aspartate Amino Transf (AST/SGOT) 12 U/L (5-40) Alanine Aminotransferase (ALT/SGPT) 7 U/L (3-33) Alkaline Phosphatase 103 U/L (35-104) Total Protein 6.9 g/dL (6.6-8.7) Albumin 3.1 g/dL (3.5-5.2) L Globulin 3.8 g/dL Albumin/Globulin Ratio 0.8 (1.0-2.7) L Amylase Level 33 U/L (10-110) Lipase 22 U/L (< 60) Microbiology Date/Time Source Procedure Growth Status 12/18/16 05:00 Blood Blood Culture - Preliminary NO GROWTH AFTER 24 HOURS Resulted 12/18/16 04:45 Blood Blood Culture - Preliminary NO GROWTH AFTER 24 HOURS Resulted 12/18/16 17:15 Straight Cath Urine Culture - Preliminary NO GROWTH Resulted 12/18/16 05:30 Urine,Clean Catch Urine Culture - Preliminary Gram Negative Bacillus 1 Resulted Intake and Output 12/18/16 12/19/16 19:00 07:00 Intake Total 907.5 ml 1055.0 ml Balance 907.5 ml 1055.0 ml Intake Oral 120 ml IV Total 907.5 ml 935.0 ml # Voids 7 # Bowel Movements 1 1 Assessment/Plan Problem List: (1) Epigastric abdominal pain Assessment & Plan: See GI note. (2) Hepatic steatosis (3) Leukocytosis Assessment & Plan: Due to UTI (4) Hemiparesis, right (5) UTI (urinary tract infection) Assessment & Plan: Await cult and sens result. See ID note. Continue zosyn (6) Steatosis of liver (7) Renal failure (8) CHF exacerbation (9) COPD (chronic obstructive pulmonary disease) (10) Diabetes mellitus Assessment & Plan: Cont novolog sliding scale. (11) Iron deficiency anemia (12) HTN (hypertension) Assessment & Plan: Cont coreg (13) Cardiomyopathy (14) Cerebral vascular disease (15) AICD (automatic cardioverter/defibrillator) present (16) LBBB (left bundle branch block) Assessment & Plan: S/P AICD. See cardiology note. Status: not improved JOVANA AGUILAR Dec 19, 2016 18:19
--- NOTE | 2016-12-19 18:19 | Infectious Diseases Prog Note ---
Assessment/Plan Assessment/Plan ASSESSMENT: 71 y/o female admitted with generalized weakness, anion gap metabolic acidosis, leukocytosis and pyuria w/o UTI, with early Ucx growth of GNR pending ident/sensitivities. hemodynamically stable, s/p IV hydration, and subjectively feels much better with resolution of acidosis and improved SCr to 1.5 from 2.2. Remains on day#1 empiric IV zosyn after receiving one dose of unasyn in the ER. She previously had a R renal stone, non obstructing noted on prior CT in . Pending ruq u/s to r/o biliary disease, but once her renal function normalizes, she should have repeat CT a/p with contrast to ensure no retained infected stones, as that could impact treatment duration. Has perhaps a subtle RLL superior segment infiltrate on CXR, but overall improving on current therapy and wouldn't add on IV vancomycin now. //GNR UTI //Leukocytosis //anion gap metabolic acidosis //Dehydration PLAN: 1) Continue IV zosyn renally dosed 2) f/u results of urine and blood cx 3) monitor daily CBC for resolution of leukocytosis 4) CT A/p with IV contrast in next 48-72 hrs once renal function improves. Subjective Allergies: Coded Allergies: No Known Allergies (Unverified , 12/18/16) Objective Vital Signs Last 24 Hour Vital Signs Date Time Temp Pulse Resp B/P Pulse Ox O2 Delivery O2 Flow Rate FiO2 12/19/16 16:00 97.3 102 21 120/71 98 Nasal Cannula 2.0 12/19/16 12:00 97 12/19/16 12:00 97.2 97 21 131/66 98 Nasal Cannula 2.0 12/19/16 10:00 97 115/73 12/19/16 08:00 94 12/19/16 08:00 97.4 97 20 115/73 97 Nasal Cannula 2.0 12/19/16 04:00 97.7 97 22 108/59 99 Nasal Cannula 2.0 12/19/16 04:00 97 12/19/16 00:00 97.9 96 20 106/56 98 Nasal Cannula 2.0 12/19/16 00:00 98 12/18/16 20:51 104 112/62 12/18/16 20:00 97.9 105 20 103/46 97 Nasal Cannula 2.0 12/18/16 20:00 106 Height (Feet): 5 Height (Inches): 1.00 Weight (Pounds): 172 Objective PHYSICAL EXAMINATION: VITAL SIGNS: GEN: awake, alert, non toxic appearing HEENT: Mild pale conjunctiva. No icterus. Head, normocephalic. NECK: No lymphadenopathy. CHEST: faint end expiratory wheezes bilaterally HEART: S1 and S2, no murmurs, exam limited by body habitus ABDOMEN: obese, not distended, and non tender to palpation. No organomegaly. no peg. EXTREMITIES: No cyanosis at this time. trace BLE. no rash. old healed scars on ble. no picc line in place NEUROLOGIC: awake, alert. R hemiparesis, chronic. : external genitalia wnl, no arrington in place. Microbiology Date/Time Source Procedure Growth Status 12/18/16 05:00 Blood Blood Culture - Preliminary NO GROWTH AFTER 24 HOURS Resulted 12/18/16 04:45 Blood Blood Culture - Preliminary NO GROWTH AFTER 24 HOURS Resulted 12/18/16 17:15 Straight Cath Urine Culture - Preliminary NO GROWTH Resulted 12/18/16 05:30 Urine,Clean Catch Urine Culture - Preliminary Gram Negative Bacillus 1 Resulted Laboratory Tests Test 12/19/16 06:55 White Blood Count 16.4 K/UL (4.8-10.8) H Red Blood Count 4.07 M/UL (4.20-5.40) L Hemoglobin 10.5 G/DL (12.0-16.0) L Hematocrit 33.9 % (37.0-47.0) L Mean Corpuscular Volume 83 FL (80-99) Mean Corpuscular Hemoglobin 25.7 PG (27.0-31.0) L Mean Corpuscular Hemoglobin Concent 30.9 G/DL (32.0-36.0) L Red Cell Distribution Width 14.8 % (11.6-14.8) Platelet Count 171 K/UL (150-450) Mean Platelet Volume 9.3 FL (6.5-10.1) Neutrophils (%) (Auto) 74.8 % (45.0-75.0) Lymphocytes (%) (Auto) 12.7 % (20.0-45.0) L Monocytes (%) (Auto) 9.3 % (1.0-10.0) Eosinophils (%) (Auto) 2.3 % (0.0-3.0) Basophils (%) (Auto) 0.9 % (0.0-2.0) Activated Partial Thromboplast Time 22 SEC (23-33) L Sodium Level 140 mEQ/L (135-145) Potassium Level 5.0 mEQ/L (3.4-4.9) H Chloride Level 108 mEQ/L (98-107) H Carbon Dioxide Level 22 mEQ/L (20-30) Anion Gap 10 (5-15) Blood Urea Nitrogen 29 mg/dL (7-23) H Creatinine 1.5 mg/dL (0.5-0.9) H Estimat Glomerular Filtration Rate 34.4 mL/min (>60) Glucose Level 255 mg/dL (74-106) H Calcium Level 8.5 mg/dL (8.6-10.2) L Total Bilirubin 0.4 mg/dL (0.0-1.2) Aspartate Amino Transf (AST/SGOT) 12 U/L (5-40) Alanine Aminotransferase (ALT/SGPT) 7 U/L (3-33) Alkaline Phosphatase 103 U/L (35-104) Total Protein 6.9 g/dL (6.6-8.7) Albumin 3.1 g/dL (3.5-5.2) L Globulin 3.8 g/dL Albumin/Globulin Ratio 0.8 (1.0-2.7) L Amylase Level 33 U/L (10-110) Lipase 22 U/L (< 60) Current Medications Medications (Trade) Dose Ordered Sig/[place] Route PRN Reason Start Time Stop Time Status Last Admin Dose Admin Acetaminophen (Tylenol) 650 mg Q4H PRN ORAL fever 12/18/16 08:00 01/17/17 07:59 Al Hydroxide/Mg Hydroxide (Mylanta II) 30 ml Q6H PRN ORAL dyspepsia 12/18/16 08:00 01/17/17 07:59 Carvedilol (Coreg) 3.125 mg EVERY 12 HOURS ORAL 12/18/16 10:00 01/17/17 09:59 12/19/16 10:00 Clopidogrel Bisulfate (Plavix) 75 mg DAILY ORAL 12/18/16 10:00 01/17/17 09:59 12/19/16 09:59 Dextrose (Dextrose 50%) STAT PRN IV Hypoglycemia 12/18/16 08:00 01/17/17 07:59 Dextrose/Sodium Chloride (D5 0.45% NS) 1,000 ml @ 75 mls/hr [id number] IV 12/18/16 08:30 01/17/17 08:29 12/19/16 10:02 Diphenhydramine HCl (Benadryl) 25 mg Q6H PRN ORAL Itching/Pruritis 12/18/16 08:00 01/17/17 07:59 Heparin Sodium (Porcine) (Heparin 5000 units/ml) 5,000 units EVERY 12 HOURS SUBQ 12/18/16 10:00 01/17/17 09:59 12/19/16 10:03 Insulin Aspart No Dose BEFORE MEALS AND HS SUBQ 12/18/16 12:00 01/17/17 11:59 12/18/16 16:44 Morphine Sulfate (Morphine Sulfate) 2 mg Q4H PRN IVP severe Pain (Pain Scale 7-10) 12/18/16 08:00 12/25/16 07:59 12/19/16 06:06 Nitroglycerin (Ntg) 0.4 mg Q5M X 3 DOSES PRN SL Prn Chest Pain 12/18/16 08:00 01/17/17 07:59 Ondansetron HCl (Zofran) 4 mg Q6H PRN IVP Nausea & Vomiting 12/18/16 08:00 01/17/17 07:59 Pantoprazole (Protonix) 40 mg DAILY IVP 12/18/16 10:00 01/17/17 09:59 12/19/16 10:20 Piperacillin Sod/ Tazobactam Sod/ Sodium Chloride (Zosyn/Sodium Chloride) 110 ml @ 27.5 mls/hr Q8HR IVPB 12/19/16 14:00 12/26/16 13:59 12/19/16 15:14 Polyethylene Glycol (Miralax) 17 gm HSPRN PRN ORAL Constipation 12/18/16 08:00 01/17/17 07:59 Pregabalin (Lyrica) 50 mg BID ORAL 12/18/16 10:00 01/17/17 09:59 12/19/16 17:54 Spironolactone 25 mg 25 mg DAILY ORAL 12/18/16 10:00 01/17/17 09:59 12/19/16 10:00 Temazepam (Restoril) 15 mg HSPRN PRN ORAL Insomnia 12/18/16 08:00 12/25/16 07:59 Rodo Dinero M.D. Dec 19, 2016 18:19
[2016-12-19 20:00] VITALS: BP 140/56
[2016-12-20] VITALS: BP 130/59
[2016-12-20 04:00] VITALS: BP 129/63
[2016-12-20] MEDS: Piperacillin/Tazobactam 3.375 GM in NS 110 ML IVPB SCH (05:44)
[2016-12-20 06:37] LABS: EOSINOPHILS % (AUTO) 1.7 % (0.0-3.0); LYMPHOCYTES % (AUTO) 12.2 % (20.0-45.0); MEAN CORPUSCULAR HEMOGLOBIN 25.2 PG (27.0-31.0); MEAN CORPUSCULAR HGB CONC 30.5 G/DL (32.0-36.0); MEAN CORPUSCULAR VOLUME 83 FL (80-99); MEAN PLATELET VOLUME 10.2 FL (6.5-10.1); MONOCYTES % (AUTO) 9.9 % (1.0-10.0); NEUTROPHILS % (AUTO) 75.3 % (45.0-75.0); PLATELET COUNT 208 K/UL (150-450); RED BLOOD COUNT 3.77 M/UL (4.20-5.40); RED CELL DISTRIBUTION WIDTH 14.6 % (11.6-14.8); WHITE BLOOD COUNT 15.4 K/UL (4.8-10.8)
[2016-12-20] MEDS: Insulin NovoLOG Flexpen S/S (Mod) SUBQ SCH ×4 (06:37→21:00)
[2016-12-20 07:24] LABS: CALCIUM 9.1 mg/dL (8.6-10.2); CREATININE 1.3 mg/dL (0.5-0.9); GLOMERULAR FILTRATION RATE 40.6 mL/min (>60); POTASSIUM 4.8 mEQ/L (3.4-4.9)
[2016-12-20 08:00] VITALS: BP 108/62
[2016-12-20] MEDS: Pantoprazole Inj IVP SCH (08:32)
[2016-12-20] MEDS: Lyrica 50mg cap ORAL SCH ×2 (08:32→17:07)
[2016-12-20] MEDS: Spironolactone 25mg tab ORAL SCH (08:34)
[2016-12-20] MEDS: Heparin 5000 units/ml inj SUBQ SCH ×2 (08:35→20:54)
[2016-12-20 08:43] LABS: ERYTHROCYTE SEDIMENTATION RATE 112 MM/HR (0-30)
[2016-12-20 09:54] LABS: BAND NEUTROPHILS % (MANUAL) 0 % (0-8); BASOPHILS % (MANUAL) 0 % (0-2); EOSINOPHILS % (MANUAL) 1 % (0-3); LYMPHOCYTES % (MANUAL) 8 % (20-45); NEUTROPHILS % (MANUAL) 78 % (45-75); PLATELET ESTIMATE ADEQUATE; PLATELET MORPHOLOGY NORMAL; TOTAL CELLS COUNTED 100
--- NOTE | 2016-12-20 09:54 | Infectious Diseases Prog Note ---
Assessment/Plan Assessment/Plan ASSESSMENT: 71 y/o female //UTI ; Strp Grp B and E. Coli CT 10/11 : Tiny nonobstructive stone in the right kidney. //Leukocytosis //anion gap metabolic acidosis //Dehydration COPD CHF Cardiomyopathy DM2 HTN CVA R hemiparesis Cervical Cancer, s/p KENA Iron Deficiency anemia Complete LBBB, s/p AICD Diverticulosis small hiatal hernia GERD w/o esophagitis--s/p normal EGD and normal colonoscopy 10/14/16 PLAN: Continue IV zosyn d# 2 , change to Ancef d# 1 / 10 , upon improvement will change to Keflex to complete the course monitor blood cx monitor daily CBC , BMP Subjective Allergies: Coded Allergies: No Known Allergies (Unverified , 12/18/16) Subjective comfortable Objective Vital Signs Last 24 Hour Vital Signs Date Time Temp Pulse Resp B/P Pulse Ox O2 Delivery O2 Flow Rate FiO2 12/20/16 08:34 98 129/63 12/20/16 08:00 101 12/20/16 04:00 98 12/20/16 04:00 98.4 98 18 129/63 96 Nasal Cannula 2.0 99 12/20/16 00:00 97.2 100 20 130/59 95 Nasal Cannula 2.0 99 12/20/16 00:00 98 12/19/16 20:53 102 140/56 12/19/16 20:00 97.3 102 20 140/56 95 Nasal Cannula 2.0 99 12/19/16 20:00 103 12/19/16 16:00 101 12/19/16 16:00 97.3 102 21 120/71 98 Nasal Cannula 2.0 12/19/16 12:00 97 12/19/16 12:00 97.2 97 21 131/66 98 Nasal Cannula 2.0 12/19/16 10:00 97 115/73 Height (Feet): 5 Height (Inches): 1.00 Weight (Pounds): 172 HEENT: atraumatic Respiratory/Chest: no respiratory distress Abdomen: non distended Microbiology Date/Time Source Procedure Growth Status 12/18/16 05:00 Blood Blood Culture - Preliminary NO GROWTH AFTER 48 HOURS Resulted 12/18/16 04:45 Blood Blood Culture - Preliminary NO GROWTH AFTER 48 HOURS Resulted 12/18/16 17:15 Straight Cath Urine Culture - Preliminary NO GROWTH AFTER 24 HOURS Resulted 12/18/16 05:30 Urine,Clean Catch Urine Culture - Final Escherichia Coli Strep Agalactiae Group B Complete Laboratory Tests Test 12/20/16 05:00 White Blood Count 15.4 K/UL (4.8-10.8) H Red Blood Count 3.77 M/UL (4.20-5.40) L Hemoglobin 9.5 G/DL (12.0-16.0) L Hematocrit 31.2 % (37.0-47.0) L Mean Corpuscular Volume 83 FL (80-99) Mean Corpuscular Hemoglobin 25.2 PG (27.0-31.0) L Mean Corpuscular Hemoglobin Concent 30.5 G/DL (32.0-36.0) L Red Cell Distribution Width 14.6 % (11.6-14.8) Platelet Count 208 K/UL (150-450) Mean Platelet Volume 10.2 FL (6.5-10.1) H Neutrophils (%) (Auto) 75.3 % (45.0-75.0) H Lymphocytes (%) (Auto) 12.2 % (20.0-45.0) L Monocytes (%) (Auto) 9.9 % (1.0-10.0) Eosinophils (%) (Auto) 1.7 % (0.0-3.0) Basophils (%) (Auto) 1.0 % (0.0-2.0) Neutrophils % (Manual) Pending Lymphocytes % (Manual) Pending Platelet Estimate Pending Platelet Morphology Pending Erythrocyte Sedimentation Rate 112 MM/HR (0-30) H Reticulocyte Count Pending Prothrombin Time 10.0 SEC (9.30-11.50) Prothromb Time International Ratio 1.0 (0.9-1.1) Activated Partial Thromboplast Time 32 SEC (23-33) Sodium Level 140 mEQ/L (135-145) Potassium Level 4.8 mEQ/L (3.4-4.9) Chloride Level 104 mEQ/L (98-107) Carbon Dioxide Level 20 mEQ/L (20-30) Anion Gap 16 (5-15) H Blood Urea Nitrogen 22 mg/dL (7-23) Creatinine 1.3 mg/dL (0.5-0.9) H Estimat Glomerular Filtration Rate 40.6 mL/min (>60) Glucose Level 215 mg/dL (74-106) H Calcium Level 9.1 mg/dL (8.6-10.2) Iron Level 15 ug/dL (37-145) L Total Iron Binding Capacity 290 ug/dL (250-400) Percent Iron Saturation 5 % (15-50) L Unsaturated Iron Binding 275 ug/dL (112-346) Lactate Dehydrogenase 211 U/L (135-230) Carcinoembryonic Antigen 1.6 ng/mL Vitamin B12 Level 651 pg/mL (211-946) Folate Pending Current Medications Medications (Trade) Dose Ordered Sig/[place] Route PRN Reason Start Time Stop Time Status Last Admin Dose Admin Acetaminophen (Tylenol) 650 mg Q4H PRN ORAL fever 12/18/16 08:00 01/17/17 07:59 Al Hydroxide/Mg Hydroxide (Mylanta II) 30 ml Q6H PRN ORAL dyspepsia 12/18/16 08:00 01/17/17 07:59 Carvedilol (Coreg) 3.125 mg EVERY 12 HOURS ORAL 12/18/16 10:00 01/17/17 09:59 12/20/16 08:34 Clopidogrel Bisulfate (Plavix) 75 mg DAILY ORAL 12/18/16 10:00 01/17/17 09:59 12/20/16 08:32 Dextrose (Dextrose 50%) STAT PRN IV Hypoglycemia 12/18/16 08:00 01/17/17 07:59 Diphenhydramine HCl (Benadryl) 25 mg Q6H PRN ORAL Itching/Pruritis 12/18/16 08:00 01/17/17 07:59 Heparin Sodium (Porcine) (Heparin 5000 units/ml) 5,000 units EVERY 12 HOURS SUBQ 12/18/16 10:00 01/17/17 09:59 12/20/16 08:35 Insulin Aspart No Dose BEFORE MEALS AND HS SUBQ 12/18/16 12:00 01/17/17 11:59 12/20/16 06:37 Morphine Sulfate (Morphine Sulfate) 2 mg Q4H PRN IVP severe Pain (Pain Scale 7-10) 12/18/16 08:00 12/25/16 07:59 12/19/16 06:06 Nitroglycerin (Ntg) 0.4 mg Q5M X 3 DOSES PRN SL Prn Chest Pain 12/18/16 08:00 01/17/17 07:59 Ondansetron HCl (Zofran) 4 mg Q6H PRN IVP Nausea & Vomiting 12/18/16 08:00 01/17/17 07:59 Pantoprazole (Protonix) 40 mg DAILY IVP 12/18/16 10:00 01/17/17 09:59 12/20/16 08:32 Piperacillin Sod/ Tazobactam Sod/ Sodium Chloride (Zosyn/Sodium Chloride) 110 ml @ 27.5 mls/hr Q8HR IVPB 12/19/16 14:00 12/26/16 13:59 12/20/16 05:44 Polyethylene Glycol (Miralax) 17 gm HSPRN PRN ORAL Constipation 12/18/16 08:00 01/17/17 07:59 Pregabalin (Lyrica) 50 mg BID ORAL 12/18/16 10:00 01/17/17 09:59 12/20/16 08:32 Spironolactone (Aldactone) 25 mg DAILY ORAL 12/18/16 10:00 01/17/17 09:59 12/20/16 08:34 Temazepam (Restoril) 15 mg HSPRN PRN ORAL Insomnia 12/18/16 08:00 12/25/16 07:59 QUETA LENTZ M.D. Dec 20, 2016 09:54
[2016-12-20 09:55] LABS: HYPOCHROMASIA 1+
[2016-12-20 10:16] LABS: PATH BLOOD SMEAR/OMC SENT TO PATHOLOGIST; RETICULOCYTE COUNT 1.8 % (0.0-2.0)
--- NOTE | 2016-12-20 10:51 | Pulmonology Progress Note ---
Assessment/Plan Problems: (1) Intractable abdominal pain (2) Acute kidney injury (3) EF 25% (4) Hemiparesis, right (5) Diabetes mellitus (6) COPD (chronic obstructive pulmonary disease) (7) E. coli UTI (8) AICD (automatic cardioverter/defibrillator) present (9) Obesity (10) Diabetic nephropathy Assessment/Plan GI consult requested keep npo IV fluids iv antibiotics, zosyn, will chage to PO once wbc started to come down check cultures US abdomen pending watch fluid balance HR/ BP controlled Subjective ROS Limited/Unobtainable: No Interval Events: still c/o abdominal pain Constitutional: Reports: no symptoms HEENT: Repors: no symptoms Allergies: Coded Allergies: No Known Allergies (Unverified , 12/18/16) Objective Last 24 Hour Vital Signs Date Time Temp Pulse Resp B/P Pulse Ox O2 Delivery O2 Flow Rate FiO2 12/20/16 08:34 98 129/63 12/20/16 08:00 96.7 96 18 108/62 97 Room Air 12/20/16 08:00 101 12/20/16 04:00 98 12/20/16 04:00 98.4 98 18 129/63 96 Nasal Cannula 2.0 99 12/20/16 00:00 97.2 100 20 130/59 95 Nasal Cannula 2.0 99 12/20/16 00:00 98 12/19/16 20:53 102 140/56 12/19/16 20:00 97.3 102 20 140/56 95 Nasal Cannula 2.0 99 12/19/16 20:00 103 12/19/16 16:00 101 12/19/16 16:00 97.3 102 21 120/71 98 Nasal Cannula 2.0 12/19/16 12:00 97 12/19/16 12:00 97.2 97 21 131/66 98 Nasal Cannula 2.0 Intake and Output 12/19/16 12/20/16 19:00 07:00 Intake Total 600 ml 247.5 ml Balance 600 ml 247.5 ml IV Total 600 ml 247.5 ml # Voids 3 3 General Appearance: WD/WN HEENT: normocephalic, atraumatic Respiratory/Chest: chest wall non-tender, lungs clear Cardiovascular: normal peripheral pulses, normal rate Abdomen: normal bowel sounds, soft, non tender Genitourinary: normal external genitalia Extremities: no cyanosis Skin: no rash 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, no motor/sensory deficits Lymphatic: no neck adenopathy Microbiology Date/Time Source Procedure Growth Status 12/18/16 05:00 Blood Blood Culture - Preliminary NO GROWTH AFTER 48 HOURS Resulted 12/18/16 04:45 Blood Blood Culture - Preliminary NO GROWTH AFTER 48 HOURS Resulted 12/18/16 17:15 Straight Cath Urine Culture - Preliminary NO GROWTH AFTER 24 HOURS Resulted 12/18/16 05:30 Urine,Clean Catch Urine Culture - Final Escherichia Coli Strep Agalactiae Group B Complete Laboratory Tests 12/20/16 05:00: White Blood Count 15.4H, Red Blood Count 3.77L, Hemoglobin 9.5L, Hematocrit 31.2L, Mean Corpuscular Volume 83, Mean Corpuscular Hemoglobin 25.2L, Mean Corpuscular Hemoglobin Concent 30.5L, Red Cell Distribution Width 14.6, Platelet Count 208, Mean Platelet Volume 10.2H, Neutrophils (%) (Auto) 75.3H, Lymphocytes (%) (Auto) 12.2L, Monocytes (%) (Auto) 9.9, Eosinophils (%) (Auto) 1.7, Basophils (%) (Auto) 1.0, Differential Total Cells Counted 100, Neutrophils % (Manual) 78H, Lymphocytes % (Manual) 8L, Monocytes % (Manual) 13H , Eosinophils % (Manual) 1, Basophils % (Manual) 0, Band Neutrophils 0, Platelet Estimate Adequate, Platelet Morphology Normal, Hypochromasia 1+, Erythrocyte Sedimentation Rate 112H, Reticulocyte Count 1.8, Prothrombin Time 10.0, Prothromb Time International Ratio 1.0, Activated Partial Thromboplast Time 32, Sodium Level 140, Potassium Level 4.8, Chloride Level 104, Carbon Dioxide Level 20, Anion Gap 16H, Blood Urea Nitrogen 22, Creatinine 1.3H, Estimat Glomerular Filtration Rate 40.6, Glucose Level 215H, Calcium Level 9.1, Iron Level 15L, Total Iron Binding Capacity 290, Percent Iron Saturation 5L, Unsaturated Iron Binding 275, Lactate Dehydrogenase 211, Carcinoembryonic Antigen 1.6, Vitamin B12 Level 651, Folate [Pending] Current Medications Medications (Trade) Dose Ordered Sig/[place] Route PRN Reason Start Time Stop Time Status Last Admin Dose Admin Acetaminophen (Tylenol) 650 mg Q4H PRN ORAL fever 12/18/16 08:00 01/17/17 07:59 Al Hydroxide/Mg Hydroxide (Mylanta II) 30 ml Q6H PRN ORAL dyspepsia 12/18/16 08:00 01/17/17 07:59 12/20/16 10:37 Carvedilol (Coreg) 3.125 mg EVERY 12 HOURS ORAL 12/18/16 10:00 01/17/17 09:59 12/20/16 08:34 Cefazolin Sodium/ Dextrose (Ancef/D5W) 55 ml @ 110 mls/hr Q8HR IVPB 12/20/16 14:00 12/27/16 13:59 Clopidogrel Bisulfate (Plavix) 75 mg DAILY ORAL 12/18/16 10:00 01/17/17 09:59 12/20/16 08:32 Dextrose (Dextrose 50%) STAT PRN IV Hypoglycemia 12/18/16 08:00 01/17/17 07:59 Diphenhydramine HCl (Benadryl) 25 mg Q6H PRN ORAL Itching/Pruritis 12/18/16 08:00 01/17/17 07:59 Heparin Sodium (Porcine) (Heparin 5000 units/ml) 5,000 units EVERY 12 HOURS SUBQ 12/18/16 10:00 01/17/17 09:59 12/20/16 08:35 Insulin Aspart No Dose BEFORE MEALS AND HS SUBQ 12/18/16 12:00 01/17/17 11:59 12/20/16 06:37 Morphine Sulfate (Morphine Sulfate) 2 mg Q4H PRN IVP severe Pain (Pain Scale 7-10) 12/18/16 08:00 12/25/16 07:59 12/19/16 06:06 Nitroglycerin (Ntg) 0.4 mg Q5M X 3 DOSES PRN SL Prn Chest Pain 12/18/16 08:00 01/17/17 07:59 Ondansetron HCl (Zofran) 4 mg Q6H PRN IVP Nausea & Vomiting 12/18/16 08:00 01/17/17 07:59 Pantoprazole (Protonix) 40 mg DAILY IVP 12/18/16 10:00 01/17/17 09:59 12/20/16 08:32 Polyethylene Glycol (Miralax) 17 gm HSPRN PRN ORAL Constipation 12/18/16 08:00 01/17/17 07:59 Pregabalin (Lyrica) 50 mg BID ORAL 12/18/16 10:00 01/17/17 09:59 12/20/16 08:32 Spironolactone (Aldactone) 25 mg DAILY ORAL 12/18/16 10:00 01/17/17 09:59 12/20/16 08:34 Temazepam (Restoril) 15 mg HSPRN PRN ORAL Insomnia 12/18/16 08:00 12/25/16 07:59 ERVIN COHN Dec 20, 2016 10:51
[2016-12-20 12:00] VITALS: BP 113/55
[2016-12-20] MEDS: Morphine Sulfate 2mg/ml Inj IVP PRN (12:14)
--- NOTE | 2016-12-20 13:24 | Consultation ---
Consult Note Consult Note i was asked to evaluate the patient for renal failure and diabetic nephropathy Chief Complaint: Abdominal Pain Patient 71-year-old female presented after increased abdominal pain. Patient reports having had generalized pain. She reported having some increased the abdominal discomfort which was worsened by supine position. Patient prior history of congestive heart failure as well as a pacemaker placement she is also noted be diabetic. She is followed by Dr. Wright. Past Surgical History: pacemaker Past Medical History: No History, Except For Hx Cardiac Problems: Yes Hx Hypertension: Yes Hx Pacemaker: Yes - LEFT Hx COPD: Yes Hx Diabetes: Yes Hx Cancer: Yes - uterine and cervical Hx Gastrointestinal Problems: Yes Hx Neurological Problems: Yes Hx Cerebrovascular Accident: Yes Hx Paralysis: Yes - right sided hemiplegia Hx Peripheral Neuropathy: Yes Hx Concentration Difficulty: Yes Hx Tremors: Yes Hx Dizziness: Yes Hx Numbness: Yes Hx Weakness: Yes patient examined and data reviewed . Assessment/Plan Status; (1) Intractable abdominal pain (2) Acute kidney injury, on presentation: Cr 2.2 now down to 1.3 (3) EF 25% , contributing to Renal failure- (4) Hemiparesis, right (5) Diabetes mellitus (6) COPD (chronic obstructive pulmonary disease) (7) E. coli UTI (8) AICD (automatic cardioverter/defibrillator) present (9) Obesity (10) Diabetic nephropathy , proteinuria Plan: Antibiotics per ID- Optimize cardiac and pul status- Avoid nephrotoxics- monitor renal parameters VALERIO SOTO Dec 20, 2016 13:24
--- NOTE | 2016-12-20 13:31 | Diagnostic Imaging Report ---
Indication:Abdominal pain Technique: Grayscale and duplex Doppler imaging of the abdomen performed. Comparison: CT and ultrasound 10/11/16 Findings: Prominent liver with echogenic parenchyma noted. Similar findings noted previously. Liver measures approximately 20 cm. The demonstrated part of the pancreas, gallbladder, aorta and IVC, both kidneys, spleen appear unremarkable. There is no biliary ductal dilatation identified. CBD is 7 mm. Doppler evaluation of the main portal vein shows patency. There is no ascites. No hydronephrosis seen. Impression: Hepatomegaly with fatty infiltration. No significant change from the last exam.
[2016-12-20] MEDS: ceFAZolin sod 1 GM in D5W 55 ML IVPB SCH ×2 (13:58→22:28)
--- NOTE | 2016-12-20 14:13 | GI Progress Note ---
Assessment/Plan Problems: (1) Steatosis of liver ICD Codes: K76.0 - Fatty (change of) liver, not elsewhere classified SNOMED: 152710424 (2) Epigastric abdominal pain ICD Codes: R10.13 - Epigastric pain SNOMED: 15190049 (3) Acid reflux ICD Codes: K21.9 - Gastro-esophageal reflux disease without esophagitis SNOMED: 780932059 (4) Hypoalbuminemia ICD Codes: E88.09 - Other disorders of plasma-protein metabolism, not elsewhere classified SNOMED: 757545153 (5) Iron deficiency anemia ICD Codes: D50.9 - Iron deficiency anemia, unspecified SNOMED: 95843566 (6) Anemia ICD Codes: D64.9 - Anemia, unspecified SNOMED: 684766519 (7) Intractable abdominal pain ICD Codes: R10.9 - Unspecified abdominal pain SNOMED: 27752744, 111187693 (8) EF 25% Status: stable, unchanged Status Narrative Discussed with Dr. Leal. Assessment/Plan hepatomegaly with fatty infiltration. s/p normal EGD/colonoscopy in 2014 iron deficiency EF - 20% symptomatic treatment at this time OB stool r/o GI bleed uncollected pain mgmt, simethicone prn fu abdominal U/S >> no significant changes from previous cardiac diet ppi bowel regime fu labs pt on plavix (must be stopped min 48 hours prior any endoscopic procedures) Subjective Subjective abdominal pain 12/19, epigastric gas pain Objective Last 24 Hour Vital Signs Date Time Temp Pulse Resp B/P Pulse Ox O2 Delivery O2 Flow Rate FiO2 12/20/16 12:00 98.1 92 19 113/55 98 Room Air 12/20/16 08:34 98 129/63 12/20/16 08:00 96.7 96 18 108/62 97 Room Air 12/20/16 08:00 101 12/20/16 04:00 98 12/20/16 04:00 98.4 98 18 129/63 96 Nasal Cannula 2.0 99 12/20/16 00:00 97.2 100 20 130/59 95 Nasal Cannula 2.0 99 12/20/16 00:00 98 12/19/16 20:53 102 140/56 12/19/16 20:00 97.3 102 20 140/56 95 Nasal Cannula 2.0 99 12/19/16 20:00 103 12/19/16 16:00 101 12/19/16 16:00 97.3 102 21 120/71 98 Nasal Cannula 2.0 Intake and Output 12/19/16 12/20/16 19:00 07:00 Intake Total 600 ml 247.5 ml Balance 600 ml 247.5 ml IV Total 600 ml 247.5 ml # Voids 3 3 Laboratory Tests Test 12/20/16 05:00 White Blood Count 15.4 K/UL (4.8-10.8) H Red Blood Count 3.77 M/UL (4.20-5.40) L Hemoglobin 9.5 G/DL (12.0-16.0) L Hematocrit 31.2 % (37.0-47.0) L Mean Corpuscular Volume 83 FL (80-99) Mean Corpuscular Hemoglobin 25.2 PG (27.0-31.0) L Mean Corpuscular Hemoglobin Concent 30.5 G/DL (32.0-36.0) L Red Cell Distribution Width 14.6 % (11.6-14.8) Platelet Count 208 K/UL (150-450) Mean Platelet Volume 10.2 FL (6.5-10.1) H Neutrophils (%) (Auto) 75.3 % (45.0-75.0) H Lymphocytes (%) (Auto) 12.2 % (20.0-45.0) L Monocytes (%) (Auto) 9.9 % (1.0-10.0) Eosinophils (%) (Auto) 1.7 % (0.0-3.0) Basophils (%) (Auto) 1.0 % (0.0-2.0) Differential Total Cells Counted 100 Neutrophils % (Manual) 78 % (45-75) H Lymphocytes % (Manual) 8 % (20-45) L Monocytes % (Manual) 13 % (1-10) H Eosinophils % (Manual) 1 % (0-3) Basophils % (Manual) 0 % (0-2) Band Neutrophils 0 % (0-8) Platelet Estimate Adequate Platelet Morphology Normal Hypochromasia 1+ Erythrocyte Sedimentation Rate 112 MM/HR (0-30) H Reticulocyte Count 1.8 % (0.0-2.0) Prothrombin Time 10.0 SEC (9.30-11.50) Prothromb Time International Ratio 1.0 (0.9-1.1) Activated Partial Thromboplast Time 32 SEC (23-33) Sodium Level 140 mEQ/L (135-145) Potassium Level 4.8 mEQ/L (3.4-4.9) Chloride Level 104 mEQ/L (98-107) Carbon Dioxide Level 20 mEQ/L (20-30) Anion Gap 16 (5-15) H Blood Urea Nitrogen 22 mg/dL (7-23) Creatinine 1.3 mg/dL (0.5-0.9) H Estimat Glomerular Filtration Rate 40.6 mL/min (>60) Glucose Level 215 mg/dL (74-106) H Calcium Level 9.1 mg/dL (8.6-10.2) Iron Level 15 ug/dL (37-145) L Total Iron Binding Capacity 290 ug/dL (250-400) Percent Iron Saturation 5 % (15-50) L Unsaturated Iron Binding 275 ug/dL (112-346) Lactate Dehydrogenase 211 U/L (135-230) Carcinoembryonic Antigen 1.6 ng/mL Vitamin B12 Level 651 pg/mL (211-946) Folate Pending Height (Feet): 5 Height (Inches): 1.00 Weight (Pounds): 172 General Appearance: no apparent distress, alert Cardiovascular: normal rate Respiratory/Chest: normal breath sounds, no respiratory distress Abdominal Exam: normal bowel sounds, non tender, soft Extremities: normal range of motion Rizwana Cotton N.P. Dec 20, 2016 14:13
[2016-12-20] MEDS ORDERED: Simethicone 80mg tab ORAL ONE (14:45)
[2016-12-20 16:00] VITALS: BP 110/63
--- NOTE | 2016-12-20 17:49 | Internal Med Progress Note ---
Subjective Date of Service: Dec 20, 2016 Physician Name Ash Aguilar Attending Physician Brendan Wright MD Current Medications Medications (Trade) Dose Ordered Sig/[place] Route PRN Reason Start Time Stop Time Status Last Admin Dose Admin Acetaminophen (Tylenol) 650 mg Q4H PRN ORAL fever 12/18/16 08:00 01/17/17 07:59 Carvedilol (Coreg) 3.125 mg EVERY 12 HOURS ORAL 12/18/16 10:00 01/17/17 09:59 12/20/16 08:34 Cefazolin Sodium/ Dextrose (Ancef/D5W) 55 ml @ 110 mls/hr Q8HR IVPB 12/20/16 14:00 12/27/16 13:59 12/20/16 13:58 Clopidogrel Bisulfate (Plavix) 75 mg DAILY ORAL 12/18/16 10:00 01/17/17 09:59 12/20/16 08:32 Dextrose (Dextrose 50%) STAT PRN IV Hypoglycemia 12/18/16 08:00 01/17/17 07:59 Heparin Sodium (Porcine) (Heparin 5000 units/ml) 5,000 units EVERY 12 HOURS SUBQ 12/18/16 10:00 01/17/17 09:59 12/20/16 08:35 Insulin Aspart No Dose BEFORE MEALS AND HS SUBQ 12/18/16 12:00 01/17/17 11:59 12/20/16 17:04 Morphine Sulfate (Morphine Sulfate) 2 mg Q4H PRN IVP severe Pain (Pain Scale 7-10) 12/18/16 08:00 12/25/16 07:59 12/20/16 12:14 Nitroglycerin (Ntg) 0.4 mg Q5M X 3 DOSES PRN SL Prn Chest Pain 12/18/16 08:00 01/17/17 07:59 Ondansetron HCl (Zofran) 4 mg Q6H PRN IVP Nausea & Vomiting 12/18/16 08:00 01/17/17 07:59 Pantoprazole (Protonix) 40 mg DAILY ORAL 12/21/16 09:00 01/20/17 08:59 Polyethylene Glycol (Miralax) 17 gm HSPRN PRN ORAL Constipation 12/18/16 08:00 01/17/17 07:59 Pregabalin (Lyrica) 50 mg BID ORAL 12/18/16 10:00 01/17/17 09:59 12/20/16 08:32 Simethicone (Mylicon) 80 mg QID PRN ORAL GAS PAIN 12/20/16 18:00 01/19/17 17:59 Spironolactone (Aldactone) 25 mg DAILY ORAL 12/18/16 10:00 01/17/17 09:59 12/20/16 08:34 Temazepam (Restoril) 15 mg HSPRN PRN ORAL Insomnia 12/18/16 08:00 12/25/16 07:59 Allergies: Coded Allergies: No Known Allergies (Unverified , 12/18/16) ROS Limited/Unobtainable: No Constitutional: Reports: no symptoms HEENT: Reports: no symptoms Cardiovascular: Reports: no symptoms Respiratory: Reports: no symptoms Gastrointestinal/Abdominal: Reports: abdominal pain Genitourinary: Reports: no symptoms 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: Reports: no symptoms Subjective 71 YO F admitted with abdominal pain. Now UTI. Cover for Int Med-Dr Wright Objective Last Vital Signs Date Time Temp Pulse Resp B/P Pulse Ox O2 Delivery O2 Flow Rate FiO2 12/20/16 16:00 84 12/20/16 16:00 97.5 19 110/63 94 Simple Mask 12/20/16 04:00 2.0 99 Laboratory Tests Test 12/20/16 05:00 White Blood Count 15.4 K/UL (4.8-10.8) H Red Blood Count 3.77 M/UL (4.20-5.40) L Hemoglobin 9.5 G/DL (12.0-16.0) L Hematocrit 31.2 % (37.0-47.0) L Mean Corpuscular Volume 83 FL (80-99) Mean Corpuscular Hemoglobin 25.2 PG (27.0-31.0) L Mean Corpuscular Hemoglobin Concent 30.5 G/DL (32.0-36.0) L Red Cell Distribution Width 14.6 % (11.6-14.8) Platelet Count 208 K/UL (150-450) Mean Platelet Volume 10.2 FL (6.5-10.1) H Neutrophils (%) (Auto) 75.3 % (45.0-75.0) H Lymphocytes (%) (Auto) 12.2 % (20.0-45.0) L Monocytes (%) (Auto) 9.9 % (1.0-10.0) Eosinophils (%) (Auto) 1.7 % (0.0-3.0) Basophils (%) (Auto) 1.0 % (0.0-2.0) Differential Total Cells Counted 100 Neutrophils % (Manual) 78 % (45-75) H Lymphocytes % (Manual) 8 % (20-45) L Monocytes % (Manual) 13 % (1-10) H Eosinophils % (Manual) 1 % (0-3) Basophils % (Manual) 0 % (0-2) Band Neutrophils 0 % (0-8) Platelet Estimate Adequate Platelet Morphology Normal Hypochromasia 1+ Erythrocyte Sedimentation Rate 112 MM/HR (0-30) H Reticulocyte Count 1.8 % (0.0-2.0) Prothrombin Time 10.0 SEC (9.30-11.50) Prothromb Time International Ratio 1.0 (0.9-1.1) Activated Partial Thromboplast Time 32 SEC (23-33) Sodium Level 140 mEQ/L (135-145) Potassium Level 4.8 mEQ/L (3.4-4.9) Chloride Level 104 mEQ/L (98-107) Carbon Dioxide Level 20 mEQ/L (20-30) Anion Gap 16 (5-15) H Blood Urea Nitrogen 22 mg/dL (7-23) Creatinine 1.3 mg/dL (0.5-0.9) H Estimat Glomerular Filtration Rate 40.6 mL/min (>60) Glucose Level 215 mg/dL (74-106) H Calcium Level 9.1 mg/dL (8.6-10.2) Iron Level 15 ug/dL (37-145) L Total Iron Binding Capacity 290 ug/dL (250-400) Percent Iron Saturation 5 % (15-50) L Unsaturated Iron Binding 275 ug/dL (112-346) Lactate Dehydrogenase 211 U/L (135-230) Carcinoembryonic Antigen 1.6 ng/mL Vitamin B12 Level 651 pg/mL (211-946) Folate Pending Microbiology Date/Time Source Procedure Growth Status 12/18/16 05:00 Blood Blood Culture - Preliminary NO GROWTH AFTER 48 HOURS Resulted 12/18/16 04:45 Blood Blood Culture - Preliminary NO GROWTH AFTER 48 HOURS Resulted 7/9/17 17:15 Straight Cath Urine Culture - Preliminary NO GROWTH AFTER 24 HOURS Resulted 12/18/16 05:30 Urine,Clean Catch Urine Culture - Final Escherichia Coli Strep Agalactiae Group B Complete Intake and Output 12/19/16 12/20/16 19:00 07:00 Intake Total 600 ml 247.5 ml Balance 600 ml 247.5 ml IV Total 600 ml 247.5 ml # Voids 3 3 Objective General Appearance: WD/WN, no apparent distress, alert EENT: PERRL/EOMI, normal ENT inspection Neck: non-tender, normal alignment, supple Cardiovascular: normal peripheral pulses, normal rate, regular rhythm, no gallop/murmur, no JVD Respiratory/Chest: chest wall non-tender, lungs clear, normal breath sounds, no respiratory distress, no accessory muscle use Abdomen: normal bowel sounds, decreased bowel sounds, guarding, tender Extremities: normal range of motion Neurologic: tobacco stripper hand II-XII 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, no motor/sensory deficits Skin: normal pigmentation, warm/dry Assessment/Plan Problem List: (1) Epigastric abdominal pain Assessment & Plan: See GI note. (2) Hepatic steatosis (3) Leukocytosis Assessment & Plan: Due to UTI (4) Hemiparesis, right (5) UTI (urinary tract infection) Assessment & Plan: E. Coli and group B Strep. See ID note. D/C zosyn; start cefazolin (6) Steatosis of liver (7) Renal failure (8) CHF exacerbation (9) COPD (chronic obstructive pulmonary disease) (10) Diabetes mellitus Assessment & Plan: Cont novolog sliding scale. (11) Iron deficiency anemia (12) HTN (hypertension) Assessment & Plan: Cont coreg (13) Cardiomyopathy (14) Cerebral vascular disease (15) AICD (automatic cardioverter/defibrillator) present (16) LBBB (left bundle branch block) Assessment & Plan: S/P AICD. See cardiology note. Status: not improved ASH AGUILAR Dec 20, 2016 17:49
[2016-12-20] MEDS ORDERED: Simethicone 80mg tab ORAL PRN (18:00)
[2016-12-20] MEDS: Sucralfate 1gm tab ORAL SCH ×2 (18:18→20:52)
[2016-12-20 20:00] VITALS: BP 139/74
[2016-12-21] VITALS: BP 112/62
[2016-12-21 04:00] VITALS: BP 141/59
[2016-12-21] MEDS: ceFAZolin sod 1 GM in D5W 55 ML IVPB SCH ×2 (05:46→13:36)
[2016-12-21] MEDS: Insulin NovoLOG Flexpen S/S (Mod) SUBQ SCH ×2 (06:19→11:44)
[2016-12-21 07:48] LABS: OTHERS PATHOLOGIST COMMENT
[2016-12-21 08:00] VITALS: BP 128/70
[2016-12-21 08:03] VITALS: BP 128/70
[2016-12-21 08:16] LABS: BASOPHILS % (AUTO) 0.6 % (0.0-2.0); EOSINOPHILS % (AUTO) 2.1 % (0.0-3.0); LYMPHOCYTES % (AUTO) 11.4 % (20.0-45.0); MEAN CORPUSCULAR HEMOGLOBIN 25.4 PG (27.0-31.0); MEAN CORPUSCULAR VOLUME 82 FL (80-99); MEAN PLATELET VOLUME 9.5 FL (6.5-10.1); MONOCYTES % (AUTO) 8.1 % (1.0-10.0); NEUTROPHILS % (AUTO) 77.9 % (45.0-75.0); PLATELET COUNT 240 K/UL (150-450); RED BLOOD COUNT 3.88 M/UL (4.20-5.40); RED CELL DISTRIBUTION WIDTH 14.4 % (11.6-14.8); WHITE BLOOD COUNT 15.2 K/UL (4.8-10.8)
[2016-12-21] MEDS: Spironolactone 25mg tab ORAL SCH (08:49)
[2016-12-21] MEDS: Lyrica 50mg cap ORAL SCH ×2 (08:50→08:53)
[2016-12-21] MEDS: Heparin 5000 units/ml inj SUBQ SCH (08:51)
[2016-12-21] MEDS: Sucralfate 1gm tab ORAL SCH ×2 (08:51→13:37)
[2016-12-21 08:53] LABS: ALANINE AMINOTRANSFERASE 5 U/L (3-33); ALBUMIN/GLOBULIN RATIO 0.6 (1.0-2.7); ANION GAP 12 (5-15); ASPARTATE AMINO TRANSFERASE 9 U/L (5-40); CALCIUM 9.2 mg/dL (8.6-10.2); CARBON DIOXIDE 20 mEQ/L (20-30); CHLORIDE 105 mEQ/L (98-107); CHOLESTEROL 131 mg/dL (< 200); CHOLESTEROL/HDL RATIO 4.4 (3.3-4.4); CREATININE 1.3 mg/dL (0.5-0.9); GLOMERULAR FILTRATION RATE 40.6 mL/min (>60); LDL CHOLESTEROL (CALC.) 70 mg/dL (60-99); LIPASE 16 U/L (< 60); MAGNESIUM 1.9 mg/dL (1.7-2.5); PHOSPHORUS 2.5 mg/dL (2.5-4.8); POTASSIUM 4.4 mEQ/L (3.4-4.9); SODIUM 137 mEQ/L (135-145); TOTAL PROTEIN 7.6 g/dL (6.6-8.7); URIC ACID 4.6 mg/dL (3.0-7.5)
[2016-12-21 08:54] LABS: CRP QUANT 20.9 mg/dL (< 0.5); HEMOLYSIS 3
[2016-12-21 09:00] LABS: FERRITIN 125 ng/mL (13-150)
[2016-12-21 09:24] LABS: HEMOGLOBIN A1C 10.5 % (< 6.0)
[2016-12-21] MEDS: Morphine Sulfate 2mg/ml Inj IVP PRN (10:56)
--- NOTE | 2016-12-21 11:06 | General Progress Note ---
Assessment/Plan Status: stable - from renal stand point Assessment/Plan (1) Intractable abdominal pain (2) Acute kidney injury, on presentation: Cr 2.2 now down to 1.3 (3) EF 25% , contributing to Renal failure- (4) Hemiparesis, right (5) Diabetes mellitus (6) COPD (chronic obstructive pulmonary disease) (7) E. coli UTI (8) AICD (automatic cardioverter/defibrillator) present (9) Obesity (10) Diabetic nephropathy , proteinuria Plan: Antibiotics per ID- Optimize cardiac and pul status- Avoid nephrotoxics- monitor renal parameters increase Coreg dose Subjective Constitutional: Reports: malaise, weakness Allergies: Coded Allergies: No Known Allergies (Unverified , 12/18/16) Objective Last 24 Hour Vital Signs Date Time Temp Pulse Resp B/P Pulse Ox O2 Delivery O2 Flow Rate FiO2 12/21/16 08:50 103 128/70 12/21/16 08:03 96.1 103 18 128/70 91 Room Air 12/21/16 08:00 121 12/21/16 08:00 96.7 87 18 128/70 91 Room Air 12/21/16 04:00 99.5 98 18 141/59 97 Nasal Cannula 2.0 12/21/16 03:58 95 12/21/16 00:00 97.3 90 20 112/62 98 Nasal Cannula 2.0 99 12/20/16 23:29 90 12/20/16 20:53 87 139/74 12/20/16 20:00 97.9 78 20 139/74 97 Simple Mask 2.0 99 12/20/16 19:50 90 12/20/16 16:00 84 12/20/16 16:00 97.5 85 19 110/63 94 Simple Mask 12/20/16 12:00 90 12/20/16 12:00 98.1 92 19 113/55 98 Room Air Intake and Output 12/20/16 12/21/16 19:00 07:00 Intake Total 82.5 ml Balance 82.5 ml IV Total 82.5 ml # Voids 2 2 Laboratory Tests 12/21/16 08:05: White Blood Count 15.2H, Red Blood Count 3.88L, Hemoglobin 9.9L, Hematocrit 31.8L, Mean Corpuscular Volume 82, Mean Corpuscular Hemoglobin 25.4L, Mean Corpuscular Hemoglobin Concent 31.0L, Red Cell Distribution Width 14.4, Platelet Count 240, Mean Platelet Volume 9.5, Neutrophils (%) (Auto) 77.9H, Lymphocytes (%) (Auto) 11.4L, Monocytes (%) (Auto) 8.1, Eosinophils (%) (Auto) 2.1, Basophils (%) (Auto) 0.6, Sodium Level 137, Potassium Level 4.4, Chloride Level 105, Carbon Dioxide Level 20, Anion Gap 12, Blood Urea Nitrogen 18, Creatinine 1.3H, Estimat Glomerular Filtration Rate 40.6, Glucose Level 201H, Hemoglobin A1c 10.5H, Uric Acid 4.6, Calcium Level 9.2, Phosphorus Level 2.5, Magnesium Level 1.9, Ferritin 125, Total Bilirubin 0.5, Gamma Glutamyl Transpeptidase 22, Aspartate Amino Transf (AST/SGOT) 9, Alanine Aminotransferase (ALT/SGPT) 5, Alkaline Phosphatase 97, Total Creatine Kinase 43 , C-Reactive Protein, Quantitative 20.9H, Pro-B-Type Natriuretic Peptide 9049H, Total Protein 7.6, Albumin 3.1L, Globulin 4.5, Albumin/Globulin Ratio 0.6L, Triglycerides Level 153H, Cholesterol Level 131, LDL Cholesterol 70, HDL Cholesterol 30, Cholesterol/HDL Ratio 4.4, Lipase 16, Thyroid Stimulating Hormone (TSH) 1.380 Height (Feet): 5 Height (Inches): 1.00 Weight (Pounds): 172 General Appearance: no apparent distress Cardiovascular: tachycardia Abdomen: soft Objective no sign of CHF VALERIO SOTO Dec 21, 2016 11:06
[2016-12-21 11:28] VITALS: BP 112/57
--- NOTE | 2016-12-21 12:16 | GI Progress Note ---
Assessment/Plan Problems: (1) Steatosis of liver ICD Codes: K76.0 - Fatty (change of) liver, not elsewhere classified SNOMED: 196467784 (2) Epigastric abdominal pain ICD Codes: R10.13 - Epigastric pain SNOMED: 33206608 (3) Acid reflux ICD Codes: K21.9 - Gastro-esophageal reflux disease without esophagitis SNOMED: 166614945 (4) Hypoalbuminemia ICD Codes: E88.09 - Other disorders of plasma-protein metabolism, not elsewhere classified SNOMED: 455347036 (5) Iron deficiency anemia ICD Codes: D50.9 - Iron deficiency anemia, unspecified SNOMED: 61056978 (6) Anemia ICD Codes: D64.9 - Anemia, unspecified SNOMED: 200261645 (7) Intractable abdominal pain ICD Codes: R10.9 - Unspecified abdominal pain SNOMED: 41912684, 119174029 (8) EF 25% Status: stable Status Narrative Discussed with Dr. Leal. Assessment/Plan hepatomegaly with fatty infiltration. s/p normal EGD/colonoscopy in 2014 iron deficiency EF - 20% chronic abdominal pain ok for DC per GI standpoint symptomatic treatment at this time OB stool r/o GI bleed uncollected >> stable H&H pain mgmt, simethicone prn fu abdominal U/S >> no significant changes from previous cardiac diet ppi bowel regime pt on plavix (must be stopped min 48 hours prior any endoscopic procedures) repeat colonoscopy 2019 The patient was seen and examined at bedside and all new and available data was reviewed in the patients chart. I agree with the above findings, impression and plan. (Patient seen earlier today. Signature stamp does not reflect patient encounter time.). -Ángel Leal MD Subjective Subjective abdominal pain 12/19, epigastric gas pain Objective Last 24 Hour Vital Signs Date Time Temp Pulse Resp B/P Pulse Ox O2 Delivery O2 Flow Rate FiO2 12/21/16 11:28 96.3 80 18 112/57 98 Nasal Cannula 2.0 12/21/16 08:50 103 128/70 12/21/16 08:03 96.1 103 18 128/70 91 Room Air 12/21/16 08:00 121 12/21/16 08:00 96.7 87 18 128/70 91 Room Air 12/21/16 04:00 99.5 98 18 141/59 97 Nasal Cannula 2.0 12/21/16 03:58 95 12/21/16 00:00 97.3 90 20 112/62 98 Nasal Cannula 2.0 99 12/20/16 23:29 90 12/20/16 20:53 87 139/74 12/20/16 20:00 97.9 78 20 139/74 97 Simple Mask 2.0 99 12/20/16 19:50 90 12/20/16 16:00 84 12/20/16 16:00 97.5 85 19 110/63 94 Simple Mask Intake and Output 12/20/16 12/21/16 19:00 07:00 Intake Total 82.5 ml Balance 82.5 ml IV Total 82.5 ml # Voids 2 2 Laboratory Tests Test 12/21/16 08:05 White Blood Count 15.2 K/UL (4.8-10.8) H Red Blood Count 3.88 M/UL (4.20-5.40) L Hemoglobin 9.9 G/DL (12.0-16.0) L Hematocrit 31.8 % (37.0-47.0) L Mean Corpuscular Volume 82 FL (80-99) Mean Corpuscular Hemoglobin 25.4 PG (27.0-31.0) L Mean Corpuscular Hemoglobin Concent 31.0 G/DL (32.0-36.0) L Red Cell Distribution Width 14.4 % (11.6-14.8) Platelet Count 240 K/UL (150-450) Mean Platelet Volume 9.5 FL (6.5-10.1) Neutrophils (%) (Auto) 77.9 % (45.0-75.0) H Lymphocytes (%) (Auto) 11.4 % (20.0-45.0) L Monocytes (%) (Auto) 8.1 % (1.0-10.0) Eosinophils (%) (Auto) 2.1 % (0.0-3.0) Basophils (%) (Auto) 0.6 % (0.0-2.0) Sodium Level 137 mEQ/L (135-145) Potassium Level 4.4 mEQ/L (3.4-4.9) Chloride Level 105 mEQ/L (98-107) Carbon Dioxide Level 20 mEQ/L (20-30) Anion Gap 12 (5-15) Blood Urea Nitrogen 18 mg/dL (7-23) Creatinine 1.3 mg/dL (0.5-0.9) H Estimat Glomerular Filtration Rate 40.6 mL/min (>60) Glucose Level 201 mg/dL (74-106) H Hemoglobin A1c 10.5 % (< 6.0) H Uric Acid 4.6 mg/dL (3.0-7.5) Calcium Level 9.2 mg/dL (8.6-10.2) Phosphorus Level 2.5 mg/dL (2.5-4.8) Magnesium Level 1.9 mg/dL (1.7-2.5) Ferritin 125 ng/mL (13-150) Total Bilirubin 0.5 mg/dL (0.0-1.2) Gamma Glutamyl Transpeptidase 22 U/L (5-36) Aspartate Amino Transf (AST/SGOT) 9 U/L (5-40) Alanine Aminotransferase (ALT/SGPT) 5 U/L (3-33) Alkaline Phosphatase 97 U/L (35-104) Total Creatine Kinase 43 U/L (26-140) C-Reactive Protein, Quantitative 20.9 mg/dL (< 0.5) H Pro-B-Type Natriuretic Peptide 9049 pg/mL (0-125) H Total Protein 7.6 g/dL (6.6-8.7) Albumin 3.1 g/dL (3.5-5.2) L Globulin 4.5 g/dL Albumin/Globulin Ratio 0.6 (1.0-2.7) L Triglycerides Level 153 mg/dL (< 150) H Cholesterol Level 131 mg/dL (< 200) LDL Cholesterol 70 mg/dL (60-99) HDL Cholesterol 30 mg/dL (> 60) Cholesterol/HDL Ratio 4.4 (3.3-4.4) Lipase 16 U/L (< 60) Thyroid Stimulating Hormone (TSH) 1.380 uIU/mL (0.300-4.500) Height (Feet): 5 Height (Inches): 1.00 Weight (Pounds): 172 General Appearance: no apparent distress, alert Cardiovascular: normal rate Respiratory/Chest: normal breath sounds, no respiratory distress Abdominal Exam: normal bowel sounds, soft, tender Extremities: normal range of motion Rizwana Cotton N.P. Dec 21, 2016 12:16 ÁNGEL LEAL Dec 23, 2016 09:14
[2016-12-21] MEDS ORDERED: COREG6.25 MG ORAL (13:35)
--- NOTE | 2016-12-21 13:37 | Internal Med Progress Note ---
Subjective Date of Service: Dec 21, 2016 Physician Name Jovana Aguilar Attending Physician Brendan Wright MD Current Medications Medications (Trade) Dose Ordered Sig/[place] Route PRN Reason Start Time Stop Time Status Last Admin Dose Admin Acetaminophen (Tylenol) 650 mg Q4H PRN ORAL fever 12/18/16 08:00 01/17/17 07:59 Carvedilol (Coreg) 6.25 mg EVERY 12 HOURS ORAL 12/21/16 21:00 01/20/17 20:59 Cefazolin Sodium/ Dextrose (Ancef/D5W) 55 ml @ 110 mls/hr Q8HR IVPB 12/20/16 14:00 12/27/16 13:59 12/21/16 05:46 Clopidogrel Bisulfate (Plavix) 75 mg DAILY ORAL 12/18/16 10:00 01/17/17 09:59 12/21/16 08:49 Dextrose (Dextrose 50%) STAT PRN IV Hypoglycemia 12/18/16 08:00 01/17/17 07:59 Heparin Sodium (Porcine) (Heparin 5000 units/ml) 5,000 units EVERY 12 HOURS SUBQ 12/18/16 10:00 01/17/17 09:59 12/20/16 20:54 Insulin Aspart No Dose BEFORE MEALS AND HS SUBQ 12/18/16 12:00 01/17/17 11:59 12/21/16 11:44 Morphine Sulfate (Morphine Sulfate) 2 mg Q4H PRN IVP severe Pain (Pain Scale 7-10) 12/18/16 08:00 12/25/16 07:59 12/21/16 10:56 Nitroglycerin (Ntg) 0.4 mg Q5M X 3 DOSES PRN SL Prn Chest Pain 12/18/16 08:00 01/17/17 07:59 Ondansetron HCl (Zofran) 4 mg Q6H PRN IVP Nausea & Vomiting 12/18/16 08:00 01/17/17 07:59 Pantoprazole (Protonix) 40 mg DAILY ORAL 12/21/16 09:00 01/20/17 08:59 12/21/16 08:51 Polyethylene Glycol (Miralax) 17 gm HSPRN PRN ORAL Constipation 12/18/16 08:00 01/17/17 07:59 Pregabalin (Lyrica) 50 mg BID ORAL 12/18/16 10:00 01/17/17 09:59 12/20/16 08:32 Simethicone (Mylicon) 80 mg QID PRN ORAL GAS PAIN 12/20/16 18:00 01/19/17 17:59 Spironolactone (Aldactone) 25 mg DAILY ORAL 12/18/16 10:00 01/17/17 09:59 12/21/16 08:49 Sucralfate (Carafate) 1 gm FOUR TIMES A DAY ORAL 12/20/16 18:00 01/19/17 17:59 12/21/16 08:51 Temazepam (Restoril) 15 mg HSPRN PRN ORAL Insomnia 12/18/16 08:00 12/25/16 07:59 Allergies: Coded Allergies: No Known Allergies (Unverified , 12/18/16) ROS Limited/Unobtainable: No Constitutional: Reports: no symptoms HEENT: Reports: no symptoms Cardiovascular: Reports: no symptoms Respiratory: Reports: no symptoms Gastrointestinal/Abdominal: Reports: no symptoms Genitourinary: Reports: no symptoms 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: Reports: no symptoms Subjective 71 YO F admitted with abdominal pain. Now UTI. Cover for Int [place]-Dr Wright Objective Last Vital Signs Date Time Temp Pulse Resp B/P Pulse Ox O2 Delivery O2 Flow Rate FiO2 12/21/16 12:00 84 12/21/16 11:28 96.3 18 112/57 98 Nasal Cannula 2.0 12/21/16 00:00 99 Laboratory Tests Test 12/21/16 08:05 White Blood Count 15.2 K/UL (4.8-10.8) H Red Blood Count 3.88 M/UL (4.20-5.40) L Hemoglobin 9.9 G/DL (12.0-16.0) L Hematocrit 31.8 % (37.0-47.0) L Mean Corpuscular Volume 82 FL (80-99) Mean Corpuscular Hemoglobin 25.4 PG (27.0-31.0) L Mean Corpuscular Hemoglobin Concent 31.0 G/DL (32.0-36.0) L Red Cell Distribution Width 14.4 % (11.6-14.8) Platelet Count 240 K/UL (150-450) Mean Platelet Volume 9.5 FL (6.5-10.1) Neutrophils (%) (Auto) 77.9 % (45.0-75.0) H Lymphocytes (%) (Auto) 11.4 % (20.0-45.0) L Monocytes (%) (Auto) 8.1 % (1.0-10.0) Eosinophils (%) (Auto) 2.1 % (0.0-3.0) Basophils (%) (Auto) 0.6 % (0.0-2.0) Sodium Level 137 mEQ/L (135-145) Potassium Level 4.4 mEQ/L (3.4-4.9) Chloride Level 105 mEQ/L (98-107) Carbon Dioxide Level 20 mEQ/L (20-30) Anion Gap 12 (5-15) Blood Urea Nitrogen 18 mg/dL (7-23) Creatinine 1.3 mg/dL (0.5-0.9) H Estimat Glomerular Filtration Rate 40.6 mL/min (>60) Glucose Level 201 mg/dL (74-106) H Hemoglobin A1c 10.5 % (< 6.0) H Uric Acid 4.6 mg/dL (3.0-7.5) Calcium Level 9.2 mg/dL (8.6-10.2) Phosphorus Level 2.5 mg/dL (2.5-4.8) Magnesium Level 1.9 mg/dL (1.7-2.5) Ferritin 125 ng/mL (13-150) Total Bilirubin 0.5 mg/dL (0.0-1.2) Gamma Glutamyl Transpeptidase 22 U/L (5-36) Aspartate Amino Transf (AST/SGOT) 9 U/L (5-40) Alanine Aminotransferase (ALT/SGPT) 5 U/L (3-33) Alkaline Phosphatase 97 U/L (35-104) Total Creatine Kinase 43 U/L (26-140) C-Reactive Protein, Quantitative 20.9 mg/dL (< 0.5) H Pro-B-Type Natriuretic Peptide 9049 pg/mL (0-125) H Total Protein 7.6 g/dL (6.6-8.7) Albumin 3.1 g/dL (3.5-5.2) L Globulin 4.5 g/dL Albumin/Globulin Ratio 0.6 (1.0-2.7) L Triglycerides Level 153 mg/dL (< 150) H Cholesterol Level 131 mg/dL (< 200) LDL Cholesterol 70 mg/dL (60-99) HDL Cholesterol 30 mg/dL (> 60) Cholesterol/HDL Ratio 4.4 (3.3-4.4) Lipase 16 U/L (< 60) Thyroid Stimulating Hormone (TSH) 1.380 uIU/mL (0.300-4.500) Microbiology Date/Time Source Procedure Growth Status 12/18/16 17:15 Straight Cath Urine Culture - Final NO GROWTH AFTER 48 HOURS Complete Intake and Output 12/20/16 12/21/16 19:00 07:00 Intake Total 82.5 ml Balance 82.5 ml IV Total 82.5 ml # Voids 2 2 Objective General Appearance: WD/WN, no apparent distress, alert EENT: PERRL/EOMI, normal ENT inspection Neck: non-tender, normal alignment, supple Cardiovascular: normal peripheral pulses, normal rate, regular rhythm, no gallop/murmur, no JVD Respiratory/Chest: chest wall non-tender, lungs clear, normal breath sounds, no respiratory distress, no accessory muscle use Abdomen: normal bowel sounds, decreased bowel sounds, guarding, tender Extremities: normal range of motion 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 (2) Hepatic steatosis (3) Leukocytosis Assessment & Plan: Due to UTI (4) Hemiparesis, right (5) UTI (urinary tract infection) Assessment & Plan: E. Coli and group B Strep. See ID note. D/C zosyn; start cefazolin. Oral levaquin 500 mg daily for 7 days on discharge. (6) Steatosis of liver (7) Renal failure (8) CHF exacerbation (9) COPD (chronic obstructive pulmonary disease) (10) Diabetes mellitus Assessment & Plan: Cont novolog sliding scale. (11) Iron deficiency anemia (12) HTN (hypertension) Assessment & Plan: Cont coreg (13) Cardiomyopathy (14) Cerebral vascular disease (15) AICD (automatic cardioverter/defibrillator) present (16) LBBB (left bundle branch block) Assessment & Plan: S/P AICD. See cardiology note. Assessment/Plan D/C home today JOVANA AGUILAR Dec 21, 2016 13:37
[2016-12-21 15:18] VITALS: BP 113/56
[2016-12-21] MEDS ORDERED: Carvedilol 6.25mg Tab ORAL SCH (21:00)
--- NOTE | 2016-12-22 18:14 | Discharge Summary ---
Discharge Summary Hospital Course Date of Admission Dec 18, 2016 at 03:40 Date of Discharge Dec 21, 2016 at 16:10 Admitting Diagnosis ACUTE RENAL INJURY, DEHYDRATION HPI Amaya Harvey is a 71 year old female who was admitted on Dec 18, 2016 at 03:40 for Acute Renal Injury,Dehydration Hospital Course [id number] Discharge Discharge Disposition Patient was discharged to Home (01) Discharge Diagnoses: Suzie Jin NP Dec 22, 2016 18:14
--- NOTE | 2016-12-23 05:30 | Discharge Summary 2 SIG ---
DATE OF ADMISSION: 12/18/2016 DATE OF DISCHARGE: 12/21/2016 CONSULTANTS: 1. Ángel Leal M.D. 2. Bill Mcdonlad M.D. 3. Ida Nolen M.D. 4. Gumaro Haddad M.D. BRIEF HOSPITAL COURSE: The patient is a 71-year-old female, who presented to ED complaining of abdominal pain that started the day prior to admission. Pain was located in the epigastric area with no radiation to the chest or shoulder. Denied nausea or vomiting. On evaluation at ED, EKG showed paced rhythm with no acute ST-T wave changes. Laboratories showed leukocytosis as well as elevated creatinine to 2.2. The patient was admitted to telemetry. Urinalysis showed 2+ occult blood, 1+ bilirubin, 3+ leukocyte esterase, and WBC too many to count. The patient was admitted to telemetry for urinary tract infection and renal failure. She was placed empirically on intravenous Zosyn and was started on IV hydration. Blood glucose was monitored and was continued on Lantus and insulin sliding scale. Amylase and lipase were normal. Abdominal ultrasound showed hepatomegaly with fatty infiltration. She was given symptomatic treatment, proton pump inhibitors, and bowel regimen. Urine culture showed growth of E. coli with group B strep. Antibiotic was changed to Ancef and rifampin. She has a history of congestive heart failure with ejection fraction 25% contributing to renal failure. Creatinine improved. She was eventually discharged home to continue Levaquin 500 mg daily for seven days upon discharge. FINAL DIAGNOSES: 1. Urinary tract infection with Escherichia coli and group B streptococcus. 2. Hepatic steatosis. 3. Acute kidney injury. 4. Diabetes mellitus with diabetic nephropathy. 5. Chronic obstructive pulmonary disease. 6. Obesity. 7. 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 8. Congestive heart failure. 9. Iron deficiency anemia. 10. Cardiomyopathy. 11. Automatic implanted cardioverter defibrillator. 12. Left bundle-branch block. Ash Li M.D. I have been assigned to dictate discharge summary on this account and I was not involved in the patient's management. Suzie Jin N.P. DR: NELL JOB#: [id number] CC:
== END 2016-12-21 16:10 | disposition home or self-care (01) | DRG 690 ==
LOC: EMR 03:00 → 2E 03:40 → EDBEDREQ 04:22 → 2E 19:30
DX: N39.0 Urinary tract infection, site not specified (principal); N17.9 Acute kidney failure, unspecified; E87.2 Acidosis; I42.9 Cardiomyopathy, unspecified; E11.21 Type 2 diabetes mellitus with diabetic nephropathy; E88.09 Other disorders of plasma-protein metabolism, not elsewhere classified; I69.351 Hemiplegia and hemiparesis following cerebral infarction affecting right dominant side; J44.9 Chronic obstructive pulmonary disease, unspecified; B96.20 Unspecified Escherichia coli [E. coli] as the cause of diseases classified elsewhere; B95.1 Streptococcus, group B, as the cause of diseases classified elsewhere; Z95.810 Presence of automatic (implantable) cardiac defibrillator; E66.9 Obesity, unspecified; I50.9 Heart failure, unspecified; K76.0 Fatty (change of) liver, not elsewhere classified; D50.9 Iron deficiency anemia, unspecified; I44.7 Left bundle-branch block, unspecified; Z85.41 Personal history of malignant neoplasm of cervix uteri; K57.90 Diverticulosis of intestine, part unspecified, without perforation or abscess without bleeding; K44.9 Diaphragmatic hernia without obstruction or gangrene; K21.9 Gastro-esophageal reflux disease without esophagitis; E86.0 Dehydration; Z85.42 Personal history of malignant neoplasm of other parts of uterus; Z79.4 Long term (current) use of insulin
CPT/HCPCS: 36415; 71010; 76700; 80048; 80053; 80061; 81001; 81003; 82150; 82378; 82550; 82607; 82728; 82746; 82962; 82977; 83036; 83540; 83550; 83605; 83615; 83690; 83735; 83880; 84100; 84443; 84484; 84550; 85007; 85025; 85044; 85060; 85610; 85651; 85730; 86140; 86850; 86900; 86901; 87040; 87086; 87181; 93005; J1815; J2405

== ENCOUNTER 2016-12-22 08:41 | Inpatient (IN) | payer MEDICARE, OTHER ==
[2016-12-21 15:00] VITALS: BP 132/62
[2016-12-22] VITALS: BP 112/66
[~2016-12-22] VITALS: Ht 165.1 cm; Wt 80.7 kg
[~2016-12-22 08:41] MED LIST changes: +COREG6.25 MG ORAL; +SPIRONOLACTONE25 MG ORAL
[2016-12-22 09:04] VITALS: BP 104/49
--- NOTE | 2016-12-22 09:09 | Emergency Room Report ---
History of Present Illness General Chief Complaint: Abdominal Pain Source: Patient, Family Member, Medical Record Present Illness HPI Patient presents for abdominal pain. The patient had been admitted to [facility] for 3 days and was discharged yesterday. She was diagnosed as a urinary tract infection and placed on oral antibiotics at discharge. She presents with uncontrolled abdominal pain in her epigastric area. She denies chest pain or shortness of breath. She denies fever or chills. She denies nausea or vomiting. She has no other complaints. Allergies: Coded Allergies: No Known Allergies (Unverified , 12/18/16) Patient History Past Medical History: see triage record, old chart reviewed, DM, HTN, VT, CAD, CHF, COPD, GERD, CVA/TIA, renal disease Past Surgical History: appy, hysterectomy, pacemaker Social History: Denies: alcohol use, drug use, smoking Reviewed Nursing Documentation: PMH: Agreed, PSxH: Agreed Nursing Documentation-PMH Past Medical History: No History, Except For Hx Cardiac Problems: Yes Hx Hypertension: Yes Hx Pacemaker: Yes - left side chest. Hx Asthma: No Hx COPD: Yes Hx Diabetes: Yes Hx Cancer: Yes Hx Gastrointestinal Problems: No Hx Neurological Problems: Yes - CVA Hx Cerebrovascular Accident: Yes - in 2008 and 2008 Hx Transient Ischemic Attacks: No Hx Dementia: No Hx Alzheimer's Disease: No Hx Parkinson's Disease: No Hx Meningitis: No Hx Encephalitis: No Hx Seizures: No Hx Epilepsy: No Hx Multiple Sclerosis: No Hx Cerebral Palsy: No Hx Amyotrophic Lat Sclerosis: No Hx Guillian-Wingate Syndrome: No Hx Paralysis: Yes - rt sided minor paralysis d/t CVA Hx Peripheral Neuropathy: No Hx Spinal Cord Injury: No Hx Head Trauma: No Hx Traumatic Brain Injury: No Hx Memory Loss: No Hx Concentration Difficulty: No Hx Speech Problem: No Hx Tremors: No Hx Vertigo: No Hx Dizziness: Yes Hx Syncope: No Hx Headaches: No Hx Aphasia: No Hx Dysphasia: No Hx Numbness: No Hx Weakness: No Hx Fatigue: No Hx Neurologic Surgery: No Hx Brain Shunt: No Review of Systems All Other Systems: negative except mentioned in HPI Physical Exam Vital Signs Date Time Temp Pulse Resp B/P Pulse Ox O2 Delivery O2 Flow Rate FiO2 12/22/16 08:44 98.2 83 23 104/49 94 Room Air Sp02 EP Interpretation: reviewed, normal General Appearance: no apparent distress, alert, GCS 15, non-toxic Head: normocephalic, atraumatic Eyes: bilateral eye PERRL, bilateral eye normal inspection ENT: hearing 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, normal pharynx, no angioedema, normal voice Neck: full range of motion, supple/symm/no masses Respiratory: chest non-tender, lungs clear, normal breath sounds, speaking full sentences Cardiovascular #1: regular rate, rhythm, no edema Gastrointestinal: normal bowel sounds, soft, non-distended, no guarding, no rebound, tenderness - TTP epigastrium, LUQ Rectal: deferred Musculoskeletal: back normal, gait/station normal, normal range of motion, non- tender, calf tenderness Neurologic: alert, oriented x3, responsive, motor strength/tone normal, sensory intact, speech normal Psychiatric: judgement/insight normal, memory normal, mood/affect normal, no suicidal/homicidal ideation Skin: normal color, no rash, warm/dry, well hydrated Medical Decision Making Diagnostic Impression: Primary Impression: Acute renal failure (ARF) Additional Impression: Abdominal pain ER Course This patient has been recently admitted for a urinary tract infection and was discharged yesterday. She returned with ongoing abdominal pain. The differential diagnosis included colitis, diverticulitis, peptic ulcer, cholecystitis. Two days ago the patient underwent an abdomen ultrasound that showed a normal gallbladder and essentially was unremarkable other than chronic fatty liver disease. I felt I should escalate the evaluation of her abdomen and so I did obtain a CT of the abdomen and pelvis. There was no acute findings on the CT of the abdomen and pelvis. The patient is developing pleural effusions that most likely is related to her known and congestive heart failure. The patient also has acute renal failure. The patient's creatinine is elevated from 1.3 on discharge to 1.9. The patient's abdominal pain could be peptic ulcer or gastritis. I did give the patient IV Protonix and pain medication. This patient will be admitted for further evaluation and treatment. She has intractable abdominal pain and acute renal failure. Labs Test 12/22/16 08:56 12/22/16 09:18 White Blood Count 10.9 K/UL (4.8-10.8) Red Blood Count 3.85 M/UL (4.20-5.40) Hemoglobin 9.5 G/DL (12.0-16.0) Hematocrit 31.5 % (37.0-47.0) Mean Corpuscular Volume 82 FL (80-99) Mean Corpuscular Hemoglobin 24.6 PG (27.0-31.0) Mean Corpuscular Hemoglobin Concent 30.0 G/DL (32.0-36.0) Red Cell Distribution Width 14.6 % (11.6-14.8) Platelet Count 248 K/UL (150-450) Mean Platelet Volume 9.3 FL (6.5-10.1) Neutrophils (%) (Auto) 64.6 % (45.0-75.0) Lymphocytes (%) (Auto) 16.7 % (20.0-45.0) Monocytes (%) (Auto) 13.4 % (1.0-10.0) Eosinophils (%) (Auto) 4.4 % (0.0-3.0) Basophils (%) (Auto) 1.0 % (0.0-2.0) Sodium Level 131 mEQ/L (135-145) Potassium Level 5.8 mEQ/L (3.4-4.9) Chloride Level 95 mEQ/L (98-107) Carbon Dioxide Level 18 mEQ/L (20-30) Anion Gap 18 (5-15) Blood Urea Nitrogen 30 mg/dL (7-23) Creatinine 1.9 mg/dL (0.5-0.9) Estimat Glomerular Filtration Rate 26.2 mL/min (>60) Glucose Level 256 mg/dL (74-106) Calcium Level 9.0 mg/dL (8.6-10.2) Total Bilirubin 0.5 mg/dL (0.0-1.2) Aspartate Amino Transf (AST/SGOT) 27 U/L (5-40) Alanine Aminotransferase (ALT/SGPT) 6 U/L (3-33) Alkaline Phosphatase 106 U/L (35-104) Troponin I < 0.30 ng/mL (<=0.30) Total Protein 7.4 g/dL (6.6-8.7) Albumin 2.8 g/dL (3.5-5.2) Globulin 4.6 g/dL Albumin/Globulin Ratio 0.6 (1.0-2.7) Lipase 23 U/L (< 60) Urine Color Yellow Urine Appearance Slightly cloudy Urine pH 5 (4.5-8.0) Urine Specific [place] 1.010 (1.005-1.035) Urine Protein 1+ (NEGATIVE) Urine Glucose (UA) Negative (NEGATIVE) Urine Ketones Negative (NEGATIVE) Urine Occult Blood Negative (NEGATIVE) Urine Nitrite Negative (NEGATIVE) Urine Bilirubin Negative (NEGATIVE) Urine Urobilinogen Normal MG/DL (0.0-1.0) Urine Leukocyte Esterase 2+ (NEGATIVE) Urine RBC 0-2 /HPF (0 - 2) Urine WBC 5-10 /HPF (0 - 2) Urine Squamous Epithelial Cells Few /LPF (NONE/OCC) Urine Bacteria Few /HPF (NONE) Urine Mucus Moderate /LPF (NONE/OCC) CT/MRI/US Diagnostic Results CT/MRI/US Diagnostic Results : Imaging Test Ordered: CT abd/pelvis Impression No acute findings. See official report. Last Vital Signs Date Time Temp Pulse Resp B/P Pulse Ox O2 Delivery O2 Flow Rate FiO2 12/22/16 08:44 98.2 83 23 104/49 94 Room Air Disposition: ADMITTED INPATIENT Condition: Stable JASON HOOPER D.O. Dec 22, 2016 09:09
[2016-12-22] MEDS ORDERED: Morphine Sulfate 4mg/ml Inj IVP ONE (09:15)
[2016-12-22 09:18] LABS: EOSINOPHILS % (AUTO) 4.4 % (0.0-3.0); LYMPHOCYTES % (AUTO) 16.7 % (20.0-45.0); MEAN CORPUSCULAR HEMOGLOBIN 24.6 PG (27.0-31.0); MEAN CORPUSCULAR VOLUME 82 FL (80-99); MEAN PLATELET VOLUME 9.3 FL (6.5-10.1); MONOCYTES % (AUTO) 13.4 % (1.0-10.0); NEUTROPHILS % (AUTO) 64.6 % (45.0-75.0); PLATELET COUNT 248 K/UL (150-450); RED BLOOD COUNT 3.85 M/UL (4.20-5.40); RED CELL DISTRIBUTION WIDTH 14.6 % (11.6-14.8); WHITE BLOOD COUNT 10.9 K/UL (4.8-10.8)
[2016-12-22 09:27] LABS: APPEARANCE,URINE SLIGHTLY CLOUDY; KETONES,URINE NEGATIVE (NEGATIVE); LEUKOCYTE ESTERASE ,URINE 2+ (NEGATIVE); NITRITE,URINE NEGATIVE (NEGATIVE); PH,URINE 5 (4.5-8.0); PROTEIN,URINE 1+ (NEGATIVE); UROBILINOGEN,URINE NORMAL MG/DL (0.0-1.0)
[2016-12-22 09:37] LABS: ALBUMIN/GLOBULIN RATIO 0.6 (1.0-2.7); CREATININE 1.9 mg/dL (0.5-0.9); GLOMERULAR FILTRATION RATE 26.2 mL/min (>60); POTASSIUM 5.8 mEQ/L (3.4-4.9); TOTAL PROTEIN 7.4 g/dL (6.6-8.7)
[2016-12-22 09:38] LABS: BACTERIA,URINE FEW /HPF; MUCUS,URINE MODERATE /LPF (NONE/OCC); RBC,URINE 0-2 /HPF (0 - 2); SQUAMOUS EPITHELIAL CELL,UR FEW /LPF (NONE/OCC)
[2016-12-22 09:48] VITALS: BP 116/54
[2016-12-22 09:59] LABS: TROPONIN I < 0.30 ng/mL (<=0.30)
[2016-12-22] MEDS ORDERED: Pantoprazole Inj IVP ONE (12:00)
[2016-12-22 12:19] VITALS: BP 118/55
[2016-12-22 13:29] LABS: CALCIUM 8.3 mg/dL (8.6-10.2); CREATININE 1.7 mg/dL (0.5-0.9); GLOMERULAR FILTRATION RATE 29.8 mL/min (>60); POTASSIUM 4.9 mEQ/L (3.4-4.9)
--- NOTE | 2016-12-22 13:30 | Diagnostic Imaging Report ---
Indications: Abdominal pain Technique: Transabdominal real-time grayscale and duplex Doppler imaging of the upper abdomen and retroperitoneum was performed. Findings: Comparison: 04/21/2017. Liver 3 cm. Normal surface contour, diffusely increased parenchymal echogenicity. No focal lesions. Gallbladder unremarkable. No intraluminal stones or sludge. No mural thickening or adjacent fluid collections. Sonographic Griffin sign negative.. Bile ducts normal caliber. Common bile duct 7 mm. Pancreas visualized portions unremarkable. Spleen unremarkable. Right kidney unremarkable. Left kidney demonstrates multiple cortical foci of focal thinning, otherwise unremarkable. Abdominal aorta, intrahepatic portion of inferior vena cava patent, normal caliber. Duplex Doppler imaging demonstrates antegrade flow in splenic, portal, hepatic veins. No ascites. IMPRESSION: Hepatomegaly with diffuse steatosis Multifocal cortical scarring of the left kidney Otherwise negative abdominal ultrasound No change from 3 days prior.
--- NOTE | 2016-12-22 13:30 | Diagnostic Imaging Report ---
Indications: Abdominal pain Technique: Continuous helical CT imaging of the abdomen and pelvis was performed with automatic exposure control on a Siemens sensation [address] scanner. Axial, coronal, sagittal images reconstructed at 3 mm slice thickness. No IV contrast was administered due to elevated creatinine. No oral contrast was administered per requesting physician's order, despite no contraindications listed. CTDI volume(s): 20 mGy Total DLP: 960 mGy-cm Findings: Comparison: 10/11/2016 Again, lack of oral and IV contrast limits evaluation. Gastrointestinal tract remains nondilated throughout. Appendix not identified. Multiple colonic diverticula. No obvious mural thickening, adjacent stranding, extraluminal gas or fluid collections. Again noted are faint calcifications of the splenic capsule, 3 mm nonobstructing stone versus vascular calcification in right renal sinus, multifocal cortical thinning/scarring of the left kidney, scattered arterial mural calcifications (vascular patency indeterminate), absence of uterus, nonvisualization of ovaries, midline anterior abdominopelvic wall surgical incisional scar,, unchanged. Smallwood catheter has been removed from the urinary bladder. Bladder distended with small amount of intraluminal gas. Remainder visualized abdominopelvic anatomy demonstrates no other obvious acute abnormality. Heart remains enlarged with right chamber pacemaker leads. Small right pleural effusion has mildly increased in size. A small left pleural effusion has developed. Interstitial markings have increased in both lung bases. Degenerative changes again noted and lumbar and lower thoracic spine. Mild compression fracture of L1 vertebral body unchanged. Small nodule in right lower quadrant anterior abdominal wall subcutaneous region has decreased in size. IMPRESSION: Small amount of gas and urinary bladder lumen likely secondary to recent instrumentation. Smallwood catheter no longer present. Cystitis with gas-forming organism not excludable. Correlate clinically. No other evidence of acute abdominopelvic disease, with limitation as described. Subtle but potentially significant abnormalities may be missed. Repeat CT scan with full oral and IV contrast preparation recommended for more complete evaluation, as clinically indicated Multiple stable chronic abdominopelvic changes as described Increase in right, new small left pleural effusions and increase in pulmonary bibasal interstitial disease, nonspecific, may represent changes associated with congestive heart failure. Correlate clinically. Decrease in size of right lower quadrant anterior abdominal wall subcutaneous nodule compatible with resolving subcutaneous injection change
[2016-12-22] MEDS ORDERED: LORazepam Inj 2mg/ml 1ml IV PRN (13:45)
[2016-12-22] MEDS ORDERED: Miralax 17gm pkt ORAL PRN (13:45)
[2016-12-22] MEDS ORDERED: Mylanta II UD 30ml ORAL PRN (13:45)
[2016-12-22] MEDS ORDERED: Morphine Sulfate 2mg/ml Inj IVP PRN (13:45)
[2016-12-22] MEDS ORDERED: Zolpidem 5mg tab ORAL PRN (13:45)
[2016-12-22 13:47] VITALS: BP 107/49
[2016-12-22] MEDS: NovoLOG Insulin Flexpen SUBQ SCH ×2 (16:42→21:02)
--- NOTE | 2016-12-22 18:47 | History & Physical ---
History and Physical History & Physicial Dictated for Int Med Dr Wright no. [id number]. JOVANA AGUILAR Dec 22, 2016 18:47
--- NOTE | 2016-12-22 19:04 | Consultation ---
History of Present Illness General Chief Complaint: Abdominal Pain Present Illness Allergies: Coded Allergies: No Known Allergies (Unverified , 12/18/16) Medication History Scheduled Aspirin Ec* (Aspirin Ec*), 81 MG ORAL DAILY, (Reported) Atorvastatin Calcium* (Atorvastatin Calcium*), 40 MG ORAL BEDTIME, (Reported) Carvedilol (Coreg), 6.25 MG ORAL EVERY 12 HOURS Clopidogrel* (Clopidogrel*), 75 MG ORAL DAILY, (Reported) Esomeprazole Magnesium (Nexium), 40 MG ORAL DAILY, (Reported) Furosemide* (Lasix*), 20 MG ORAL DAILY, (Reported) Insulin Aspart (Novolog Flexpen), 0 UNITS SUBQ BEFORE MEALS AND HS Insulin Glargine (Lantus), 0 SUBQ BEDTIME, (Reported) Isosorbide Dinitrate* (Isordil*), 30 MG ORAL DAILY, (Reported) Loratadine (Loratadine), 10 MG PO DAILY, (Reported) Omeprazole (Omeprazole), 20 MG ORAL DAILY, (Reported) Polyethylene Glycol 3350* (Polyethylene Glycol 3350*), 17 GM ORAL DAILY, ( Reported) Pregabalin (Lyrica), 50 MG ORAL BID, (Reported) Spironolactone* (Aldactone*), 25 MG ORAL DAILY, (Reported) Scheduled PRN Acetaminophen* (Tylenol Extra Strength*), 500 MG ORAL Q6H PRN for Mild Pain/ Temp > 100.5, (Reported) Miscellaneous Medications Simethicone (Mi-Acid), 80 MG PO, (Reported) Discontinued Medications Carvedilol (Coreg), 3.125 MG ORAL EVERY 12 HOURS Discontinued Reason: Medication dose changed Patient History Healthcare decision maker Resuscitation status Full Code Advanced Directive on File No Physical Exam Last 24 Hour Vital Signs Date Time Temp Pulse Resp B/P Pulse Ox O2 Delivery O2 Flow Rate FiO2 12/22/16 17:06 98 Nasal Cannula 2.0 28 12/22/16 17:06 Nasal Cannula 2.0 28 12/22/16 16:00 65 12/22/16 14:30 98.2 64 16 107/49 100 Nasal Cannula 2.0 63 12/22/16 13:47 98.2 63 16 107/49 100 Nasal Cannula 2.0 12/22/16 12:19 64 16 118/55 100 Nasal Cannula 2.0 12/22/16 09:48 69 16 116/54 98 Nasal Cannula 2.0 12/22/16 09:04 98.2 70 18 104/49 98 Room Air 12/22/16 08:44 98.2 83 23 104/49 94 Room Air Laboratory Tests Test 12/22/16 08:56 12/22/16 09:18 12/22/16 12:50 White Blood Count 10.9 K/UL (4.8-10.8) H Red Blood Count 3.85 M/UL (4.20-5.40) L Hemoglobin 9.5 G/DL (12.0-16.0) L Hematocrit 31.5 % (37.0-47.0) L Mean Corpuscular Volume 82 FL (80-99) Mean Corpuscular Hemoglobin 24.6 PG (27.0-31.0) L Mean Corpuscular Hemoglobin Concent 30.0 G/DL (32.0-36.0) L Red Cell Distribution Width 14.6 % (11.6-14.8) Platelet Count 248 K/UL (150-450) Mean Platelet Volume 9.3 FL (6.5-10.1) Neutrophils (%) (Auto) 64.6 % (45.0-75.0) Lymphocytes (%) (Auto) 16.7 % (20.0-45.0) L Monocytes (%) (Auto) 13.4 % (1.0-10.0) H Eosinophils (%) (Auto) 4.4 % (0.0-3.0) H Basophils (%) (Auto) 1.0 % (0.0-2.0) Sodium Level 131 mEQ/L (135-145) L 134 mEQ/L (135-145) L Potassium Level 5.8 mEQ/L (3.4-4.9) H 4.9 mEQ/L (3.4-4.9) Chloride Level 95 mEQ/L (98-107) L 104 mEQ/L (98-107) Carbon Dioxide Level 18 mEQ/L (20-30) L 19 mEQ/L (20-30) L Anion Gap 18 (5-15) H 11 (5-15) Blood Urea Nitrogen 30 mg/dL (7-23) H 29 mg/dL (7-23) H Creatinine 1.9 mg/dL (0.5-0.9) H 1.7 mg/dL (0.5-0.9) H Estimat Glomerular Filtration Rate 26.2 mL/min (>60) 29.8 mL/min (>60) Glucose Level 256 mg/dL (74-106) H 246 mg/dL (74-106) H Calcium Level 9.0 mg/dL (8.6-10.2) 8.3 mg/dL (8.6-10.2) L Total Bilirubin 0.5 mg/dL (0.0-1.2) Aspartate Amino Transf (AST/SGOT) 27 U/L (5-40) Alanine Aminotransferase (ALT/SGPT) 6 U/L (3-33) Alkaline Phosphatase 106 U/L (35-104) H Troponin I < 0.30 ng/mL (<=0.30) Total Protein 7.4 g/dL (6.6-8.7) Albumin 2.8 g/dL (3.5-5.2) L Globulin 4.6 g/dL Albumin/Globulin Ratio 0.6 (1.0-2.7) L Lipase 23 U/L (< 60) Urine Color Yellow Urine Appearance Slightly cloudy Urine pH 5 (4.5-8.0) Urine Specific [place] 1.010 (1.005-1.035) Urine Protein 1+ (NEGATIVE) H Urine Glucose (UA) Negative (NEGATIVE) Urine Ketones Negative (NEGATIVE) Urine Occult Blood Negative (NEGATIVE) Urine Nitrite Negative (NEGATIVE) Urine Bilirubin Negative (NEGATIVE) Urine Urobilinogen Normal MG/DL (0.0-1.0) Urine Leukocyte Esterase 2+ (NEGATIVE) H Urine RBC 0-2 /HPF (0 - 2) Urine WBC 5-10 /HPF (0 - 2) H Urine Squamous Epithelial Cells Few /LPF (NONE/OCC) Urine Bacteria Few /HPF (NONE) Urine Mucus Moderate /LPF (NONE/OCC) H Height (Feet): 5 Height (Inches): 1.00 Weight (Pounds): 172 Medications Current Medications Medications (Trade) Dose Ordered Sig/[place] Route PRN Reason Start Time Stop Time Status Last Admin Dose Admin Acetaminophen (Tylenol) 650 mg Q4H PRN ORAL fever 12/22/16 13:45 01/21/17 13:44 Al Hydroxide/Mg Hydroxide (Mylanta II) 30 ml Q6H PRN ORAL dyspepsia 12/22/16 13:45 01/21/17 13:44 Carvedilol (Coreg) 6.25 mg EVERY 12 HOURS ORAL 12/22/16 21:00 01/21/17 20:59 Clopidogrel Bisulfate (Plavix) 75 mg DAILY ORAL 12/22/16 14:30 01/21/17 14:29 12/22/16 16:31 Dextrose (Dextrose 50%) STAT PRN IV Hypoglycemia 12/22/16 13:45 01/21/17 13:44 Heparin Sodium (Porcine) (Heparin 5000 units/ml) 5,000 units EVERY 12 HOURS SUBQ 12/22/16 21:00 01/21/17 20:59 Insulin Aspart (NovoLOG) BEFORE MEALS AND HS SUBQ 12/22/16 16:30 01/21/17 16:29 12/22/16 16:42 Lorazepam (Ativan 2mg/ml 1ml) 0.5 mg Q4H PRN IV For Anxiety 12/22/16 13:45 12/29/16 13:44 Morphine Sulfate (Morphine Sulfate) 1 mg EVERY 4 HOURS PRN IVP For Pain 12/22/16 13:45 12/29/16 13:44 Ondansetron HCl (Zofran) 4 mg Q6H PRN IVP Nausea & Vomiting 12/22/16 13:45 01/21/17 13:44 Polyethylene Glycol (Miralax) 17 gm HSPRN PRN ORAL Constipation 12/22/16 13:45 01/21/17 13:44 Zolpidem Tartrate (Ambien) 5 mg HSPRN PRN ORAL Insomnia 12/22/16 13:45 01/21/17 13:44 ERVIN COHN Dec 22, 2016 19:04
[2016-12-22 20:00] VITALS: BP 127/57
[2016-12-22] MEDS: Carvedilol 6.25mg Tab ORAL SCH (21:01)
[2016-12-22] MEDS: Heparin 5000 units/ml inj SUBQ SCH (21:03)
[2016-12-23] VITALS (8 sets, daily range): BP systolic 106–129; BP diastolic 55–66
--- NOTE | 2016-12-23 04:28 | History and Physical Report ---
DATE OF ADMISSION: 12/22/2016 CHIEF COMPLAINT: The patient is a 71-year-old female, who presents with chief complaint of epigastric pain. HISTORY OF PRESENT ILLNESS: The patient was admitted to [facility] from 12/18/2016 to 12/21/2016. The patient was followed by gastroenterology, Dr. Leal. The patient was diagnosed with urinary tract infection with Escherichia coli and Strep group B. The patient was discharged home on oral antibiotics. The patient presented to [facility] today 12/22/2016. The patient complains of intractable epigastric pain. The patient is admitted for intractable epigastric pain to rule out peptic ulcer disease versus acute cholecystitis. PAST MEDICAL HISTORY: Significant for, 1. Chronic obstructive pulmonary disease. 2. Congestive heart failure. 3. Cardiomyopathy. 4. Diabetes type 2. 5. Hypertension. 6. History of cerebrovascular accident. 7. Right hemiparesis. 8. History of cervical cancer, status post total abdominal hysterectomy. 9. Iron deficiency anemia. 10. Complete left bundle-branch block, status post automatic implantable cardioverter-defibrillator placement. PAST SURGICAL HISTORY: Significant for, 1. Total abdominal hysterectomy. 2. Appendectomy. 3. Automatic implantable cardioverter-defibrillator in 11/2015. CURRENT MEDICATIONS: 1. Tylenol 500 mg one tablet p.o. q.6 hours p.r.n. 2. Aspirin 81 mg one tablet p.o. daily. 3. Atorvastatin 20 mg one tablet p.o. at bedtime. 4. Coreg 6.25 mg one tablet p.o. twice daily. 5. Clopidogrel 75 mg one tablet p.o. daily. 6. Nexium 40 mg one tablet p.o. daily. 7. Lasix 20 mg one tablet p.o. daily. 8. NovoLog insulin sliding scale. 9. Lantus 25 units subcutaneously at bedtime. 10. Isordil 30 mg one tablet p.o. daily. 11. Claritin 10 mg one tablet p.o. daily. 12. Omeprazole 20 mg one tablet p.o. daily. 13. Lyrica 50 mg one tablet p.o. twice daily. 14. Spironolactone 25 mg one tablet p.o. daily. 15. Levaquin 500 mg one tablet p.o. daily day #2 out of 7. ALLERGIES: No known drug allergies. SOCIAL HISTORY: The patient is single and lives with her adult son. The patient denies tobacco or alcohol use. REVIEW OF SYSTEMS: Constitutional: The patient denies weight loss or weight gain. The patient denies fevers or chills. HEENT: The patient denies ear or throat pain. The patient denies headache. Cardiovascular: The patient denies palpitations or chest pain. Chest: The patient denies wheeze or shortness of breath. Abdomen: The patient complains of epigastric pain as above. The patient denies nausea, vomiting, diarrhea, or constipation. Genitourinary: The patient denies dysuria or increased frequency of urination. Neuromuscular: The patient denies seizures or generalized weakness. PHYSICAL EXAMINATION: VITAL SIGNS: Temperature 98.2 degrees, respirations 16, pulse 63, and blood pressure 107/49. GENERAL: The patient is a well-developed, well-nourished, slightly obese, female, in no apparent distress. HEENT: Eyes, pupils are equal and responsive to light and accommodation. Extraocular movements are intact. NECK: Supple without lymphadenopathy. CHEST: Lungs are clear to auscultation bilaterally without wheezes or rales. CARDIOVASCULAR: Regular rhythm and rate. S1 and S2 are normal without murmurs, rubs, or gallops. ABDOMEN: Soft and tender to palpation in the epigastric region without rebound or guarding. EXTREMITIES: Negative for clubbing, cyanosis, or edema. RECTAL: Refused. GENITAL: Refused. NEUROLOGIC: Cranial nerves II through XII are grossly intact without focal deficits. Motor strength is 5/5 bilaterally. Deep tendon reflexes are 2+ plantar. LABORATORY AND DIAGNOSTIC DATA: WBC 10.9, hemoglobin 9.5, hematocrit 31.5, and platelets 248,000. Sodium 131, potassium 5.8, chloride 95, CO2 18, BUN 38, creatinine 1.9, and glucose 256. Alkaline phosphatase elevated at 106. Urinalysis showed 1+ protein, 2+ leukocyte esterase with 5 to 10 WBC. An abdominal ultrasound reviewed hepatomegaly with diffuse steatosis. The CT scan of the abdomen and pelvis is pending. ASSESSMENT: This is a 71-year-old female. 1. Epigastric pain. 2. Urinary tract infection. 3. Renal failure. 4. Chronic obstructive pulmonary disease. 5. Congestive heart failure. 6. Cardiomyopathy. 7. Diabetes type 2. 8. Hypertension. 9. Hepatomegaly. 10. Defibrillator in situ. 11. Cerebrovascular disease. 12. Right hemiplegia. 13. Iron deficiency anemia. 14. Left bundle-branch block. TREATMENT: 1. Epigastric pain. A Gastroenterology consultation was obtained with Dr. Leal. Await CT scan of the abdomen and pelvis. The patient does have an elevated alkaline phosphatase, which may be indicative of cholelithiasis. We will await recommendations of Gastroenterology. 2. Urinary tract infection. The patient was treated with intravenous cefazolin during the previous hospital stay. The patient is currently on Levaquin day #2 out of 7. 3. Renal failure. The patient's renal function tests are slightly worse than before. May be acute on chronic. The patient is currently receiving intravenous fluids. 4. Chronic obstructive pulmonary disease. 5. Congestive heart failure/cardiomyopathy with previous ejection fraction of 55%. A Cardiology consultation was obtained with Dr. Remi Howard. 6. Hypertension. Continue Coreg as above. 7. Defibrillator as above. A Cardiology consultation was obtained with Dr. Remi Howard. 8. Cerebrovascular disease. 9. Right hemiplegia. 10. Iron deficiency anemia. 11. Left bundle-branch block, status post AICD placement. Ash Li M.D. DR: MILTON JOB#: [id number] CC:
[2016-12-23] MEDS: NovoLOG Insulin Flexpen SUBQ SCH ×3 (06:58→17:43)
[2016-12-23 07:48] LABS: BASOPHILS % (AUTO) 1.6 % (0.0-2.0); EOSINOPHILS % (AUTO) 5.8 % (0.0-3.0); LYMPHOCYTES % (AUTO) 21.9 % (20.0-45.0); MEAN CORPUSCULAR HEMOGLOBIN 25.5 PG (27.0-31.0); MEAN CORPUSCULAR HGB CONC 30.9 G/DL (32.0-36.0); MEAN CORPUSCULAR VOLUME 82 FL (80-99); MEAN PLATELET VOLUME 8.9 FL (6.5-10.1); MONOCYTES % (AUTO) 8.6 % (1.0-10.0); NEUTROPHILS % (AUTO) 62.2 % (45.0-75.0); PLATELET COUNT 233 K/UL (150-450); RED BLOOD COUNT 3.46 M/UL (4.20-5.40); RED CELL DISTRIBUTION WIDTH 14.9 % (11.6-14.8); WHITE BLOOD COUNT 9.9 K/UL (4.8-10.8)
[2016-12-23 08:00] LABS: ALBUMIN/GLOBULIN RATIO 0.7 (1.0-2.7); CALCIUM 8.9 mg/dL (8.6-10.2); CREATININE 1.3 mg/dL (0.5-0.9); GLOMERULAR FILTRATION RATE 40.6 mL/min (>60); POTASSIUM 4.6 mEQ/L (3.4-4.9); TOTAL PROTEIN 6.8 g/dL (6.6-8.7)
[2016-12-23 08:03] LABS: INR 0.9 (0.9-1.1); PROTHROMBIN TIME 9.9 SEC (9.30-11.50)
[2016-12-23] MEDS: Heparin 5000 units/ml inj SUBQ SCH (09:00)
[2016-12-23] MEDS: Carvedilol 6.25mg Tab ORAL SCH (09:00)
[2016-12-23] MEDS ORDERED: Propofol 10mg/ml 20ml IV ONE (11:00)
--- NOTE | 2016-12-23 11:10 | Pre-Procedure Note/Attestation ---
Pre-Procedure Note/Attestation Complete Prior to Procedure Planned Procedure: not applicable Procedure Narrative: egd Indications for Procedure Pre-Operative Diagnosis: abd pain Attestation I attest that I discussed the nature of the procedure; its benefits; risks and complications; and alternatives (and the risks and benefits of such alternatives ), prior to the procedure, with the patient (or the patient's legal claims service representative). I attest that, if there was a reasonable possibility of needing a blood transfusion, the patient (or the patient's legal claims service representative) was given the [facility] standardized written summary, pursuant to the Julio Edin Blood Safety Act ([place] Health and Safety Code # 1645, as amended). I attest that I re-evaluated the patient just prior to the surgery and that there has been no change in the patient's H&P, except as documented below: BIN TRINIDAD Dec 23, 2016 11:10
[2016-12-23] MEDS ORDERED: NS 550ML IV ONE (11:19)
--- NOTE | 2016-12-23 11:22 | Endoscopy Procedure Note ---
Endoscopy Procedure Note Indication for Procedure: anemia Procedures Performed: EGD Operative Findings/Diagnosis: gastritis Specimen: yes Pt Tolerated Procedure Well: Yes Estimated Blood Loss: none Anesthesiologist: aron Anesthesia: MAC Implant(s) used?: No 50 yrs or older w/o bx or poly: Not Applicable 10yrs. F/U not recommended: Not Applicable BIN TRINIDAD Dec 23, 2016 11:22
--- NOTE | 2016-12-23 11:45 | Immediate Post-Op Evaluation ---
Immediate Post-Op Evalulation Immediate Post-Op Evalulation Date of Evaluation: Dec 23, 2016 Time of Evaluation: 12:02 IV Fluids: 300 Blood Pressure Systolic: 126 Blood Pressure Diastolic: 62 Pulse Rate: 71 Respiratory Rate: 18 O2 Sat by Pulse Oximetry: 100 Temperature (Fahrenheit): 97.6 Pain Score (1-10): 0 Nausea: No Vomiting: No Complications none Patient Status: awake, patent, none Hydration Status: adequate Kristian Padilla MD Dec 23, 2016 11:45
--- NOTE | 2016-12-23 11:45 | Anethesia Preoperative Eval ---
Anesthesia Pre-op PMH/ROS General Date of Evaluation: Dec 23, 2016 Time of Evaluation: 11:16 Anesthesiologist: aron ASA Score: ASA 4 Mallampati Score Class I : Soft palate, uvula, fauces, pillars visible Class II: Soft palate, uvula, fauces visible Class III: Soft palate, base of uvula visible Class IV: Only hard plate visible Mallampati Classification: Class II Surgeon: janee Diagnosis: abdominal pain Surgical Procedure: egd Anesthesia History: none Allergies: Coded Allergies: No Known Allergies (Unverified , 12/18/16) Past Medical History Cardiovascular: Reports: HTN, VT, arrhythmia - pacemaker Pulmonary: Reports: COPD 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: Reports: CVA Endocrine: Reports: DM Hematology/Immune: Reports: anemia Anesthesia Pre-op Phys. Exam Physician Exam Last Vital Signs Date Time Temp Pulse Resp B/P Pulse Ox O2 Delivery O2 Flow Rate FiO2 12/23/16 08:00 97.7 69 21 127/64 99 Nasal Cannula 2.0 12/22/16 17:06 28 Airway Exam Mallampati Score: Class II Teeth: missing Anesthesia Pre-op A/P Labs Hematology Test 12/23/16 06:27 White Blood Count 9.9 K/UL (4.8-10.8) Red Blood Count 3.46 M/UL (4.20-5.40) L Hemoglobin 8.8 G/DL (12.0-16.0) L Hematocrit 28.5 % (37.0-47.0) L Mean Corpuscular Volume 82 FL (80-99) Mean Corpuscular Hemoglobin 25.5 PG (27.0-31.0) L Mean Corpuscular Hemoglobin Concent 30.9 G/DL (32.0-36.0) L Red Cell Distribution Width 14.9 % (11.6-14.8) H Platelet Count 233 K/UL (150-450) Mean Platelet Volume 8.9 FL (6.5-10.1) Neutrophils (%) (Auto) 62.2 % (45.0-75.0) Lymphocytes (%) (Auto) 21.9 % (20.0-45.0) Monocytes (%) (Auto) 8.6 % (1.0-10.0) Eosinophils (%) (Auto) 5.8 % (0.0-3.0) H Basophils (%) (Auto) 1.6 % (0.0-2.0) Coagulation Test 12/23/16 06:27 Prothrombin Time 9.9 SEC (9.30-11.50) Prothromb Time International Ratio 0.9 (0.9-1.1) Activated Partial Thromboplast Time 29 SEC (23-33) Chemistry Test 12/22/16 12:50 12/23/16 06:27 Sodium Level 134 mEQ/L (135-145) L 137 mEQ/L (135-145) Potassium Level 4.9 mEQ/L (3.4-4.9) 4.6 mEQ/L (3.4-4.9) Chloride Level 104 mEQ/L (98-107) 105 mEQ/L (98-107) Carbon Dioxide Level 19 mEQ/L (20-30) L 23 mEQ/L (20-30) Anion Gap 11 (5-15) 9 (5-15) Blood Urea Nitrogen 29 mg/dL (7-23) H 24 mg/dL (7-23) H Creatinine 1.7 mg/dL (0.5-0.9) H 1.3 mg/dL (0.5-0.9) H Estimat Glomerular Filtration Rate 29.8 mL/min (>60) 40.6 mL/min (>60) Glucose Level 246 mg/dL (74-106) H 210 mg/dL (74-106) H Calcium Level 8.3 mg/dL (8.6-10.2) L 8.9 mg/dL (8.6-10.2) Total Bilirubin 0.2 mg/dL (0.0-1.2) Aspartate Amino Transf (AST/SGOT) 10 U/L (5-40) Alanine Aminotransferase (ALT/SGPT) 5 U/L (3-33) Alkaline Phosphatase 83 U/L (35-104) Total Protein 6.8 g/dL (6.6-8.7) Albumin 2.9 g/dL (3.5-5.2) L Globulin 3.9 g/dL Albumin/Globulin Ratio 0.7 (1.0-2.7) L Triglycerides Level 188 mg/dL (< 150) H Cholesterol Level 120 mg/dL (< 200) LDL Cholesterol 58 mg/dL (60-99) L HDL Cholesterol 24 mg/dL (> 60) Cholesterol/HDL Ratio 5.0 (3.3-4.4) H Risk Assessment & Plan Plan: propofol Status Change Before Surgery: Kristian Moore MD Dec 23, 2016 11:45
--- NOTE | 2016-12-23 11:46 | 48 Hour Post Anesthesia Eval ---
Post Anesthesia Evaluation Date of Evaluation: Dec 23, 2016 Time of Evaluation: 12:10 Blood Pressure Systolic: 112 0: 64 Pulse Rate: 70 Respiratory Rate: 25 Temperature (Fahrenheit): 98 O2 Sat by Pulse Oximetry: 100 Airway: patent Nausea: No Vomiting: No Pain Intensity: 0 Hydration Status: adequate Cardiopulmonary Status: stable Mental Status/LOC: patient returned to baseline Follow-up Care/Observations: n/a Post-Anesthesia Complications: tolerated wll Follow-up care needed: N/A Kristian Padilla MD Dec 23, 2016 11:46
--- NOTE | 2016-12-23 13:59 | Pulmonology Progress Note ---
Assessment/Plan Assessment/Plan ASSESSMENT Epigastric pain- (r/o PUD vs acute marbin ) s/p EGD 12/23 gastritis Iron deficiency anemia Acute Renal failure. Chronic obstructive pulmonary disease. Urinary tract infection. systolic congestive heart failure moderate pulmonary HTN moderate MR mild to moderate AR cardiomyopathy Diabetes type 2. Hypertension. AICD Hx of cerebrovascular disease with R hemiplegia . PLAN OF CARE tele CT A/P -possible cystitis . No other evidence of acute abdominopelvic disease, abdominal US - Hepatomegaly with diffuse steatosis. Multifocal cortical scarring of the left kidney. Otherwise negative abdominal ultrasound No evidence of cholecystitis on both imaging GI follows s/p EGD 12/23 with findings of gastritis, s/p biopsy diet as tolerated monitor tolerance O2 HHN prn CXR and pro BNP in am ECHO in October with rEF 20-25%, RVSP of 53 c/w moderate pulmonary HTN, moderate MR , mild to moderate AR cardio eval as oper PMD-pending continue Plavix lipid panel stable BP management with BB and optimize further as needed monitor renal parameters, lytes, creat trending down abx for UTI as prior BS management with SS of insulin GI prophylaxis monitor HH , transfuse prn, recent workup revealed ИВАН, will check ferritin in am, if stable, will give Venofer stool OB case discussed and evaluated by supervising physician Subjective Allergies: Coded Allergies: No Known Allergies (Unverified , 12/18/16) Subjective mild leukocytosis resolved, no signs of respiratory distress pulse oximetry stable on 3L O2 via NC s/p EGD today still with epigastric abdominal pain , no n/v/diarrhea Objective Last 24 Hour Vital Signs Date Time Temp Pulse Resp B/P Pulse Ox O2 Delivery O2 Flow Rate FiO2 12/23/16 12:30 70 25 100 12/23/16 12:10 98.0 70 25 129/64 100 Nasal Cannula 3.0 12/23/16 12:03 74 19 129/59 100 Nasal Cannula 3.0 12/23/16 11:58 71 17 128/61 99 Simple Mask 6.0 12/23/16 11:57 71 18 100 12/23/16 11:53 97.6 72 16 128/62 99 Simple Mask 6.0 12/23/16 08:00 97.7 69 21 127/64 99 Nasal Cannula 2.0 12/23/16 04:00 97.1 68 18 106/62 98 Room Air 12/23/16 04:00 65 12/23/16 00:00 65 12/23/16 00:00 97.0 65 20 112/66 98 Room Air 12/22/16 21:01 71 116/47 12/22/16 20:00 71 12/22/16 20:00 97.0 74 20 127/57 Room Air 12/22/16 17:06 98 Nasal Cannula 2.0 28 12/22/16 17:06 Nasal Cannula 2.0 28 12/22/16 16:00 65 12/22/16 14:30 98.2 64 16 107/49 100 Nasal Cannula 2.0 63 Intake and Output 12/22/16 12/23/16 19:00 07:00 Intake Total 0 ml Output Total 200 ml Balance 0 ml -200 ml Intake Oral 0 ml Output Urine Total 200 ml # Voids 1 # Bowel Movements 2 General Appearance: no acute distress HEENT: normocephalic, atraumatic, anicteric, mucous membranes moist Respiratory/Chest: lungs clear, no respiratory distress, no accessory muscle use Cardiovascular: normal peripheral pulses, normal rate, regular rhythm Abdomen: normal bowel sounds, soft, non tender, non distended Genitourinary: normal external genitalia Extremities: pedal pulses normal, other - trace edema BLE 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: no motor/sensory deficits, alert, oriented x 3, responsive Musculoskeletal: normal muscle bulk Laboratory Tests 12/23/16 06:27: White Blood Count 9.9, Red Blood Count 3.46L, Hemoglobin 8.8L, Hematocrit 28.5L , Mean Corpuscular Volume 82, Mean Corpuscular Hemoglobin 25.5L, Mean Corpuscular Hemoglobin Concent 30.9L, Red Cell Distribution Width 14.9H, Platelet Count 233, Mean Platelet Volume 8.9, Neutrophils (%) (Auto) 62.2, Lymphocytes (%) (Auto) 21.9, Monocytes (%) (Auto) 8.6, Eosinophils (%) (Auto) 5.8H, Basophils (%) (Auto) 1.6, Prothrombin Time 9.9, Prothromb Time International Ratio 0.9, Activated Partial Thromboplast Time 29, Sodium Level 137, Potassium Level 4.6, Chloride Level 105, Carbon Dioxide Level 23, Anion Gap 9, Blood Urea Nitrogen 24H, Creatinine 1.3H, Estimat Glomerular Filtration Rate 40.6, Glucose Level 210H, Calcium Level 8.9, Total Bilirubin 0.2, Aspartate Amino Transf (AST/SGOT) 10, Alanine Aminotransferase (ALT/SGPT) 5, Alkaline Phosphatase 83, Total Protein 6.8, Albumin 2.9L, Globulin 3.9, Albumin/ Globulin Ratio 0.7L, Triglycerides Level 188H, Cholesterol Level 120, LDL Cholesterol 58L, HDL Cholesterol 24, Cholesterol/HDL Ratio 5.0H Current Medications Medications (Trade) Dose Ordered Sig/[place] Route PRN Reason Start Time Stop Time Status Last Admin Dose Admin Acetaminophen (Tylenol) 650 mg Q4H PRN ORAL fever 12/22/16 13:45 01/21/17 13:44 Al Hydroxide/Mg Hydroxide (Mylanta II) 30 ml Q6H PRN ORAL dyspepsia 12/22/16 13:45 01/21/17 13:44 Carvedilol (Coreg) 6.25 mg EVERY 12 HOURS ORAL 12/22/16 21:00 01/21/17 20:59 12/22/16 21:01 Clopidogrel Bisulfate (Plavix) 75 mg DAILY ORAL 12/22/16 14:30 01/21/17 14:29 12/22/16 16:31 Dextrose STAT PRN IV Hypoglycemia 12/22/16 20:40 01/21/17 20:39 Heparin Sodium (Porcine) (Heparin 5000 units/ml) 5,000 units EVERY 12 HOURS SUBQ 12/22/16 21:00 01/21/17 20:59 12/22/16 21:03 Insulin Aspart (NovoLOG) BEFORE MEALS AND HS SUBQ 12/22/16 16:30 01/21/17 16:29 12/23/16 06:58 Lorazepam (Ativan 2mg/ml 1ml) 0.5 mg Q4H PRN IV For Anxiety 12/22/16 13:45 12/29/16 13:44 Morphine Sulfate (Morphine Sulfate) 1 mg EVERY 4 HOURS PRN IVP For Pain 12/22/16 13:45 12/29/16 13:44 Ondansetron HCl (Zofran) 4 mg Q6H PRN IVP Nausea & Vomiting 12/22/16 13:45 01/21/17 13:44 Polyethylene Glycol (Miralax) 17 gm HSPRN PRN ORAL Constipation 12/22/16 13:45 01/21/17 13:44 Sodium Chloride (Sodium Chloride 1000ml bag) 1,000 ml @ 10 mls/hr Q24H IVLG 12/23/16 11:46 12/23/16 15:00 Zolpidem Tartrate (Ambien) 5 mg HSPRN PRN ORAL Insomnia 12/22/16 13:45 01/21/17 13:44 Mathew PeoplesSari recinos NP Dec 23, 2016 13:59
--- NOTE | 2016-12-23 14:26 | Physician Query ---
PLEASE COMPLETE THE DOCUMENT BEFORE SIGNING Dear ___ALONSO SHEPHERD Date: 12/23/16 [employer] Name: Kaye Cannon [employer] Phone # [phone]____ Exercise your independent professional judgment when responding to query. Question asked do not imply a particular answer is desired/expected Clinical Documentation States: "Renal Failure" documented in H & P: Dr. Li (12/22/16) Clinical Findings Show: Creatinine __1.9, 1.7, 1.3 mg/dl (12/22/16), (12/23/16) change by 0.6 in 24 hours_ __ BUN _30, 29, 24 mg/dl_(12/22/16), (12/23/16) GFR__26.2, 29.8, 40.6 mg/dl (12/22/16), (12/23/16)_ Urinalysis: Protein 1(+) IV Hydration: Sodium Chloride 1000 ml, 10 ml/hr Please Clarify the type of renal failure below: Etiology [] ARF w/ Tubular Necrosis [] ARF w/ Cortical Necrosis [] ARF w/ Medullary Necrosis [] Acute Renal Failure (unspecified) [] Other: If Chronic, please specify the stage: [] CKD Stage 1 [] CKD Stage 2 [] CKD Stage 3 [] CKD Stage 4 [] CKD Stage 5 [] ESRD [] Not applicable Condition Present on Admission: [] Yes [] No []Clinically Undeterminable Please also document in your Progress Notes and/or Discharge Summary and indicate if the condition was present on admission. ALONSO SHEPHERD M.D. Date & Time [facility]
[2016-12-23] MEDS ORDERED: CARAFATE1 GM/10 M1 ORAL (15:10)
--- NOTE | 2016-12-23 15:29 | Discharge Summary ---
Discharge Summary Hospital Course Date of Admission Dec 22, 2016 at 12:15 Date of Discharge Admitting Diagnosis Renal failure/CHF, uncontrolled abdominal pain HPI Amaya Harvey is a 71 year old female who was admitted on Dec 22, 2016 at 12:15 for Renal Failure,Congestive Heart Failure,Uncontrolle Hospital Course Last 24 Hour Vital Signs Date Time Temp Pulse Resp B/P Pulse Ox O2 Delivery O2 Flow Rate FiO2 12/23/16 12:30 70 25 100 12/23/16 12:10 98.0 70 25 129/64 100 Nasal Cannula 3.0 12/23/16 12:03 74 19 129/59 100 Nasal Cannula 3.0 12/23/16 11:58 71 17 128/61 99 Simple Mask 6.0 12/23/16 11:57 71 18 100 12/23/16 11:53 97.6 72 16 128/62 99 Simple Mask 6.0 12/23/16 08:00 97.7 69 21 127/64 99 Nasal Cannula 2.0 12/23/16 04:00 97.1 68 18 106/62 98 Room Air 12/23/16 04:00 65 12/23/16 00:00 65 12/23/16 00:00 97.0 65 20 112/66 98 Room Air 12/22/16 21:01 71 116/47 12/22/16 20:00 71 12/22/16 20:00 97.0 74 20 127/57 Room Air 12/22/16 17:06 98 Nasal Cannula 2.0 28 12/22/16 17:06 Nasal Cannula 2.0 28 12/22/16 16:00 65 Physical Exam General: No acute distress, awake and alert HEENT: NCAT, sclera anicteric, PERRL, EOMI. Neck: Supple, no significant jugular venous distention, Lungs: Good inspiratory effort, clear to auscultation bilaterally, no Wheeze Heart: Regular rate and rhythm, normal S1/S2, no murmurs, ICD. Abdomen: soft, nontender, nondistended. Normoactive bowel sounds.Obesity / Rectal: Refused and deferred. Extremities: No Cyanosis , clubbing or edema. Right side weakness. Neuro: A&O x 3, Able to move all extremities Skin: warm, no rashes or lesions Psych: Normal mood and affect Discharge Stuffle Discharge Discharge Disposition Patient was discharged to Discharge Diagnoses: Brendan Wright MD Dec 23, 2016 15:29
--- NOTE | 2016-12-23 18:15 | Procedure Note ---
DATE OF PROCEDURE: 12/23/2016 SURGEON: Ángel Leal M.D. PROCEDURE: Upper endoscopy with biopsy. ANESTHESIOLOGIST: Kristian Padilla M.D INSTRUMENT: Olympus adult flexible upper endoscope. INDICATION: Anemia and abdominal pain. REASON FOR PROCEDURE: The procedure, risks, benefits, and possible consequences, including hemorrhage, aspiration, perforation and infection, and alternative treatments, were explained to the patient/legal guardian by Dr. Ángel Leal and the patient/legal guardian understood and accepted these risks. DESCRIPTION OF PROCEDURE: After informed consent was obtained and the patient was adequately sedated, Olympus upper endoscope was advanced from mouth into the second portion of the duodenum and retroflexion was performed in the stomach. The patient had evidence of diffuse gastritis. Random biopsy from antrum was obtained to rule out H. pylori infection. Otherwise, the rest of the upper endoscopic examination was grossly within normal limits. The patient tolerated the procedure well without any complication. SUMMARY OF FINDINGS: Gastritis status post biopsy. RECOMMENDATIONS: Follow up biopsies and treat accordingly. Ángel Leal M.D. DR: KAYLA JOB#: [id number] CC:
--- NOTE | 2016-12-23 18:28 | Cardiac Electrophysiology PN ---
Subjective Subjective The patient is a 71-year-old lady under my Cardiology care with history of severe cardiomyopathy with ejection fraction of 20%, LBBB who also underwent biventricular Biotronik defibrillator implantation by me. The patient also has hyperlipidemia and diabetes. The patient presented to [facility] emergency room for nausea, vomiting, and abdominal pain. Underwent EGD by Dr Leal that showed Gastritis. [id number] Objective Last 24 Hour Vital Signs Date Time Temp Pulse Resp B/P Pulse Ox O2 Delivery O2 Flow Rate FiO2 12/23/16 16:00 97.4 71 20 123/55 99 Nasal Cannula 3.0 12/23/16 12:30 70 25 100 12/23/16 12:10 98.0 70 25 129/64 100 Nasal Cannula 3.0 12/23/16 12:03 74 19 129/59 100 Nasal Cannula 3.0 12/23/16 11:58 71 17 128/61 99 Simple Mask 6.0 12/23/16 11:57 71 18 100 12/23/16 11:53 97.6 72 16 128/62 99 Simple Mask 6.0 12/23/16 08:00 97.7 69 21 127/64 99 Nasal Cannula 2.0 12/23/16 04:00 97.1 68 18 106/62 98 Room Air 12/23/16 04:00 65 12/23/16 00:00 65 12/23/16 00:00 97.0 65 20 112/66 98 Room Air 12/22/16 21:01 71 116/47 12/22/16 20:00 71 12/22/16 20:00 97.0 74 20 127/57 Room Air Intake and Output 12/22/16 12/23/16 19:00 07:00 Intake Total 0 ml Output Total 200 ml Balance 0 ml -200 ml Intake Oral 0 ml Output Urine Total 200 ml # Voids 1 # Bowel Movements 2 Laboratory Tests Test 12/23/16 06:27 White Blood Count 9.9 K/UL (4.8-10.8) Red Blood Count 3.46 M/UL (4.20-5.40) L Hemoglobin 8.8 G/DL (12.0-16.0) L Hematocrit 28.5 % (37.0-47.0) L Mean Corpuscular Volume 82 FL (80-99) Mean Corpuscular Hemoglobin 25.5 PG (27.0-31.0) L Mean Corpuscular Hemoglobin Concent 30.9 G/DL (32.0-36.0) L Red Cell Distribution Width 14.9 % (11.6-14.8) H Platelet Count 233 K/UL (150-450) Mean Platelet Volume 8.9 FL (6.5-10.1) Neutrophils (%) (Auto) 62.2 % (45.0-75.0) Lymphocytes (%) (Auto) 21.9 % (20.0-45.0) Monocytes (%) (Auto) 8.6 % (1.0-10.0) Eosinophils (%) (Auto) 5.8 % (0.0-3.0) H Basophils (%) (Auto) 1.6 % (0.0-2.0) Prothrombin Time 9.9 SEC (9.30-11.50) Prothromb Time International Ratio 0.9 (0.9-1.1) Activated Partial Thromboplast Time 29 SEC (23-33) Sodium Level 137 mEQ/L (135-145) Potassium Level 4.6 mEQ/L (3.4-4.9) Chloride Level 105 mEQ/L (98-107) Carbon Dioxide Level 23 mEQ/L (20-30) Anion Gap 9 (5-15) Blood Urea Nitrogen 24 mg/dL (7-23) H Creatinine 1.3 mg/dL (0.5-0.9) H Estimat Glomerular Filtration Rate 40.6 mL/min (>60) Glucose Level 210 mg/dL (74-106) H Calcium Level 8.9 mg/dL (8.6-10.2) Total Bilirubin 0.2 mg/dL (0.0-1.2) Aspartate Amino Transf (AST/SGOT) 10 U/L (5-40) Alanine Aminotransferase (ALT/SGPT) 5 U/L (3-33) Alkaline Phosphatase 83 U/L (35-104) Total Protein 6.8 g/dL (6.6-8.7) Albumin 2.9 g/dL (3.5-5.2) L Globulin 3.9 g/dL Albumin/Globulin Ratio 0.7 (1.0-2.7) L Triglycerides Level 188 mg/dL (< 150) H Cholesterol Level 120 mg/dL (< 200) LDL Cholesterol 58 mg/dL (60-99) L HDL Cholesterol 24 mg/dL (> 60) Cholesterol/HDL Ratio 5.0 (3.3-4.4) H DELORES CHAPARRO Dec 23, 2016 18:27
--- NOTE | 2016-12-23 22:15 | Procedure Note ---
DATE OF PROCEDURE: 12/23/2016 SURGEON: Ángel Leal M.D. ANESTHESIOLOGIST: Kristian Padilla M.D. INSTRUMENT: Olympus adult flexible endoscope. INDICATION: Anemia. REASON FOR PROCEDURE: The procedure, risks, benefits, and possible consequences, including hemorrhage, aspiration, perforation and infection, and alternative treatments, were explained to the patient/legal guardian by Dr. Ángel Leal and the patient/legal guardian understood and accepted these risks. DESCRIPTION OF PROCEDURE: After informed consent was obtained and the patient was adequately sedated, Olympus upper endoscope was advanced from the mouth into the second portion of duodenum and retroflexion was performed in the stomach. The patient had no obvious findings at this time and procedure significant for marked gastritis. Random biopsy from antrum was obtained to rule out H. pylori for infection. The rest of the examination is grossly within normal limits. The patient tolerated the procedure well without any complication. SUMMARY FINDINGS: Normal upper endoscopic examination except gastritis status post biopsy. RECOMMENDATIONS: Followup biopsy results and treat accordingly. I want to thank, Dr. Brendan Wright, for this kind referral. Ángel Leal M.D. DR: KAYLA JOB#: [id number] CC: Brendan Wright M.D.; Fax#: [phone] [facility]
--- NOTE | 2016-12-24 01:00 | Consultation ---
DATE OF CONSULTATION: 12/23/2016 CARDIOLOGY CONSULTATION REFERRING PHYSICIAN: Ash Li M.D. ADDITIONAL REFERRING PHYSICIAN: Brendan Wright M.D. REASON FOR CONSULTATION: Management of congestive heart failure and evaluation of patient's defibrillator. HISTORY OF PRESENT ILLNESS: The patient is a very pleasant 71-year-old lady with history of cardiomyopathy who underwent a Biotronik biventricular defibrillator implantation by me in the past. The patient presented to the emergency room with abdominal pain. The patient subsequently underwent EGD by Dr. Leal that showed gastritis. A Cardiology consultation was obtained for further evaluation and management. PAST MEDICAL HISTORY: 1. Hypertension. 2. Congestive heart failure. 3. Diabetes. 4. Cardiomyopathy. 5. Status post biventricular defibrillator implantation. 6. Complete left bundle-branch block. 7. Iron-deficiency anemia. 8. History of cervical cancer, status post total abdominal hysterectomy. 9. Chronic obstructive pulmonary disease. MEDICATIONS: As per reconciliation and include aspirin, Lipitor, Coreg, Plavix, Lasix, Isordil and Aldactone. FAMILY HISTORY: Noncontributory. SOCIAL HISTORY: She lives at home. Does not smoke or drink alcohol. REVIEW OF SYSTEMS: Review of systems was performed and was negative other than what was mentioned in history of present illness PHYSICAL EXAMINATION: VITAL SIGNS: Blood pressure is 135/55, pulse 71, and respirations 18. She is afebrile. HEAD AND NECK: Shows no JVD. LUNGS: Clear. CARDIOVASCULAR: Shows regular S1 and S2 with no gallop. Defibrillator is in the left subclavian. ABDOMEN: Soft. EXTREMITIES: No pitting edema. LABORATORY DATA: Show white count of 9.9, hemoglobin 8.8, hematocrit 28.5, and platelet count is 233,000. Sodium is 137, potassium 4.6, BUN 24, creatinine 1.3, and glucose of 210. BNP is 9000. ASSESSMENT AND PLAN: 1. Congestive heart failure. The patient currently is euvolemic to continue current medical therapy including Coreg 6.25 mg twice a day. Resume lisinopril and Lasix especially the creatinine has gone up to 1.3. The patient was also on Aldactone. 2. Status post biventricular defibrillator with Biotronik device in the setting of left bundle-branch block. be interrogated. The patient will be discharged and I will try to interrogate as an outpatient. 3. Abdominal pain status post esophagogastroduodenoscopy by Dr. Leal today that showed gastritis for which she underwent biopsy. Thank you very much, Dr. Wright and Dr. Li for allowing me to participate in the care of this patient. Please do not hesitate to contact for any questions regarding my evaluation. Remi Howard M.D. DR: EDD JOB#: [id number] CC:
--- NOTE | 2016-12-24 10:15 | Discharge Summary ---
DATE OF ADMISSION: 12/22/2016 DATE OF DISCHARGE: 12/23/2016 BRIEF HISTORY AND HOSPITAL COURSE: This is a 71-year-old very delightful female with past medical history significant for COPD, congestive heart failure, cardiomyopathy, diabetes type 2, and hypertension, who was presented to the hospital complaining about abdominal pain. Shortly after initial evaluation, the patient was treated for gastritis and the patient underwent colonoscopy and endoscopy, which has confirmed that the patient has gastritis and the patient's status improved and subsequently was discharged home today to be followed up as an outpatient with my office next week. FINAL DIAGNOSES: 1. Abdominal pain, most likely secondary to gastritis. 2. Chronic obstructive pulmonary disease. 3. Congestive heart failure. 4. Cardiomyopathy. 5. Acute kidney injury on chronic kidney disease. 6. Diabetes type 2. 7. History of cerebrovascular accident with right-sided hemiparesis. 8. Complete heart block, status post automatic implanted cardioverter- defibrillator placement. MEDICATIONS ON DISCHARGE: Continue discharge medication list. ACTIVITY: As tolerated. DIET: An 1800-ADA cardiac diet. FOLLOWUP: The patient will follow up in my office within one week. Brendan Wright M.D. DR: Narciso JOB#: [id number] CC:
== END 2016-12-23 17:40 | disposition home or self-care (01) | DRG 392 ==
LOC: EMR 09:16 → EDBEDREQ 12:03 → 2E 12:15 → EDBEDREQ 13:24
PROC: 0DB68ZX Excision of Stomach, Via Natural or Artificial Opening Endoscopic, Diagnostic (ICD-10-PCS; principal; 2016-12-23 11:24)
DX: K29.70 Gastritis, unspecified, without bleeding (principal); N17.9 Acute kidney failure, unspecified; I42.9 Cardiomyopathy, unspecified; I50.20 Unspecified systolic (congestive) heart failure; N39.0 Urinary tract infection, site not specified; I69.351 Hemiplegia and hemiparesis following cerebral infarction affecting right dominant side; E11.22 Type 2 diabetes mellitus with diabetic chronic kidney disease; Z79.4 Long term (current) use of insulin; Z95.810 Presence of automatic (implantable) cardiac defibrillator; J44.9 Chronic obstructive pulmonary disease, unspecified; Z85.41 Personal history of malignant neoplasm of cervix uteri; D50.9 Iron deficiency anemia, unspecified; I44.7 Left bundle-branch block, unspecified; I12.9 Hypertensive chronic kidney disease with stage 1 through stage 4 chronic kidney disease, or unspecified chronic kidney disease; N18.9 Chronic kidney disease, unspecified; I27.2 Other secondary pulmonary hypertension; E78.5 Hyperlipidemia, unspecified
CPT/HCPCS: 36415; 74176; 76700; 80048; 80053; 80061; 81003; 82962; 83690; 84484; 85025; 85610; 85730; 87081; 94003; 94150; 94760; J1815; J2405

== ENCOUNTER → 2017-02-08 | Outpatient (CLI) | payer MEDICARE, OTHER ==
[~2017-02-08] MED LIST changes: +CARAFATE1 GM/10 M1 ORAL
[2017-02-08 09:29] LABS: APPEARANCE,URINE CLEAR; KETONES,URINE NEGATIVE (NEGATIVE); LEUKOCYTE ESTERASE ,URINE 1+ (NEGATIVE); NITRITE,URINE NEGATIVE (NEGATIVE); PH,URINE 5 (4.5-8.0); PROTEIN,URINE NEGATIVE (NEGATIVE); UROBILINOGEN,URINE NORMAL MG/DL (0.0-1.0)
[2017-02-08 09:30] LABS: BASOPHILS % (AUTO) 1.3 % (0.0-2.0); EOSINOPHILS % (AUTO) 4.7 % (0.0-3.0); LYMPHOCYTES % (AUTO) 19.3 % (20.0-45.0); MEAN CORPUSCULAR HEMOGLOBIN 24.4 PG (27.0-31.0); MEAN CORPUSCULAR VOLUME 81 FL (80-99); MONOCYTES % (AUTO) 7.9 % (1.0-10.0); NEUTROPHILS % (AUTO) 66.9 % (45.0-75.0); PLATELET COUNT 295 K/UL (150-450); RED BLOOD COUNT 4.18 M/UL (4.20-5.40); RED CELL DISTRIBUTION WIDTH 15.4 % (11.6-14.8); WHITE BLOOD COUNT 12.3 K/UL (4.8-10.8)
[2017-02-08 09:47] LABS: ALBUMIN/GLOBULIN RATIO 0.7 (1.0-2.7); CALCIUM 9.7 mg/dL (8.6-10.2); CHOLESTEROL/HDL RATIO 4.7 (3.3-4.4); CREATININE 1.5 mg/dL (0.5-0.9); GLOMERULAR FILTRATION RATE 34.4 mL/min (>60); POTASSIUM 4.6 mEQ/L (3.4-4.9); TOTAL PROTEIN 8.5 g/dL (6.6-8.7)
[2017-02-08 09:57] LABS: THYROID STIMULATING HORMONE 1.56 uIU/mL (0.300-4.500)
[2017-02-08 10:00] LABS: HEMOGLOBIN A1C 8.9 % (< 6.0)
[2017-02-08 10:10] LABS: BACTERIA,URINE FEW /HPF; RBC,URINE 0-2 /HPF (0 - 2); SQUAMOUS EPITHELIAL CELL,UR FEW /LPF (NONE/OCC)
== END | disposition home or self-care (01) ==
LOC: LAB 08:58
DX: I10 Essential (primary) hypertension (principal); E11.9 Type 2 diabetes mellitus without complications; E78.00 Pure hypercholesterolemia, unspecified; Z86.73 Personal history of transient ischemic attack (TIA), and cerebral infarction without residual deficits
CPT/HCPCS: 36415; 80053; 80061; 81001; 82607; 82746; 83036; 84443; 85025

== ENCOUNTER 2017-08-08 02:04 | Inpatient (IN) | payer MEDICARE, OTHER ==
[~2017-08-08] VITALS: Ht 160 cm; Wt 80.4 kg
[2017-08-08] MEDS ORDERED: Simethicone 80mg tab ORAL PRN (07:00)
[2017-08-08 08:00] VITALS: BP 103/50
[2017-08-08] MEDS: Lyrica 50mg cap ORAL SCH ×2 (09:00→22:41)
[2017-08-08 09:30] VITALS: BP 116/59
[2017-08-08] MEDS: Sucralfate 1gm tab ORAL SCH ×4 (09:34→22:12)
[2017-08-08] MEDS: Acetaminophen 500mg (ES) tab ORAL PRN ×2 (09:34→18:31)
[2017-08-08] MEDS: Azithromycin 250mg tab ORAL SCH (09:34)
[2017-08-08] MEDS: Aspirin EC 81mg tab ORAL SCH (09:34)
[2017-08-08] MEDS: Carvedilol 6.25mg Tab ORAL SCH ×2 (09:42→21:00)
[2017-08-08] MEDS: Imdur 30mg tab ORAL SCH (09:42)
[2017-08-08] MEDS: cefTRIAXone 1 GM in NS 55 ML IVPB SCH (09:43)
[2017-08-08 09:49] LABS: ALANINE AMINOTRANSFERASE 12 U/L (12-78); ALBUMIN 2.9 G/DL (3.4-5.0); ALBUMIN/GLOBULIN RATIO 0.7 (1.0-2.7); ALKALINE PHOSPHATASE 94 U/L (46-116); ANION GAP 7 mmol/L (5-15); ASPARTATE AMINO TRANSFERASE 12 U/L (15-37); BILIRUBIN,TOTAL 0.4 MG/DL (0.2-1.0); BLOOD UREA NITROGEN 34 mg/dL (7-18); CALCIUM 8.7 MG/DL (8.5-10.1); CARBON DIOXIDE 28 MMOL/L (21-32); CHLORIDE 102 MMOL/L (98-107); CREATININE 2.1 MG/DL (0.55-1.30); PHOSPHORUS 5.2 MG/DL (2.5-4.9); POTASSIUM 4.4 MMOL/L (3.5-5.1); SODIUM 137 MMOL/L (136-145)
[2017-08-08 09:54] LABS: BASOPHILS % (AUTO) 0.6 % (0.0-2.0); HEMATOCRIT 32.2 % (37.0-47.0); HEMOGLOBIN 10.3 G/DL (12.0-16.0); LYMPHOCYTES % (AUTO) 12.8 % (20.0-45.0); MEAN CORPUSCULAR VOLUME 84 FL (80-99); MONOCYTES % (AUTO) 7.1 % (1.0-10.0); NEUTROPHILS % (AUTO) 76.5 % (45.0-75.0); PLATELET COUNT 203 K/UL (150-450); RED BLOOD COUNT 3.82 M/UL (4.20-5.40); RED CELL DISTRIBUTION WIDTH 14.9 % (11.6-14.8); WHITE BLOOD COUNT 9.5 K/UL (4.8-10.8)
[2017-08-08] MEDS ORDERED: cefTRIAXone 1 GM in D5W 55 ML IVPB SCH (10:00)
[2017-08-08 12:00] VITALS: BP 120/56
[2017-08-08] MEDS: NovoLOG Insulin Flexpen SUBQ SCH ×3 (13:14→21:00)
--- NOTE | 2017-08-08 15:04 | Consultation ---
History of Present Illness General Date patient seen: Aug 08, 2017 Referring physician: Jen Rodarte Reason for Consultation: copd, pneumonia Present Illness HPI 72 year old female with hx of COPD, CVA, cardiomyopathy, ICD, was taken to [facility] by paramedics with CC of Pt was diagnosed to have pneumonia and transferred to [facility] [place]. Pt is currently awake, looks comfortable and c/o fo epigastric pain. Allergies: Coded Allergies: No Known Allergies (Unverified , 12/18/16) Medication History Scheduled Aspirin Ec* (Aspirin Ec*), 81 MG ORAL DAILY, (Reported) Atorvastatin Calcium* (Atorvastatin Calcium*), 40 MG ORAL BEDTIME, (Reported) Carvedilol (Coreg), 6.25 MG ORAL EVERY 12 HOURS Clopidogrel* (Clopidogrel*), 75 MG ORAL DAILY, (Reported) Esomeprazole Magnesium (Nexium), 40 MG ORAL DAILY, (Reported) Furosemide* (Lasix*), 20 MG ORAL DAILY, (Reported) Insulin Aspart (Novolog Flexpen), 0 UNITS SUBQ BEFORE MEALS AND HS Insulin Glargine (Lantus), 0 SUBQ BEDTIME, (Reported) Isosorbide Dinitrate* (Isordil*), 30 MG ORAL DAILY, (Reported) Loratadine (Loratadine), 10 MG PO DAILY, (Reported) Polyethylene Glycol 3350* (Polyethylene Glycol 3350*), 17 GM ORAL DAILY, ( Reported) Pregabalin (Lyrica), 50 MG ORAL BID, (Reported) Spironolactone* (Aldactone*), 25 MG ORAL DAILY, (Reported) Sucralfate (Carafate), 1 GM ORAL FOUR TIMES A DAY Scheduled PRN Acetaminophen* (Tylenol Extra Strength*), 500 MG ORAL Q6H PRN for Mild Pain/ Temp > 100.5, (Reported) Miscellaneous Medications Simethicone (Mi-Acid), 80 MG PO, (Reported) Patient History Healthcare decision maker Resuscitation status Full Code Advanced Directive on File No Past Medical/Surgical History Past Medical/Surgical History: (1) AICD (automatic cardioverter/defibrillator) present (2) EF 25% (3) Hemiplegia affecting right dominant side (4) Cerebral vascular disease (5) HTN (hypertension) (6) Obesity (7) COPD (chronic obstructive pulmonary disease) Review of Systems All Other Systems: negative except mentioned in HPI Physical Exam General Appearance: no apparent distress Lines, tubes and drains: peripheral Neck: non-tender, supple Respiratory/Chest: chest wall non-tender, normal breath sounds, rhonchi - left , rhonchi - right Breasts: no masses Cardiovascular/Chest: normal peripheral pulses, regular rhythm Abdomen: normal bowel sounds Genitourinary/Rectal: normal genital exam Extremities: normal range of motion, non-tender, normal inspection Skin Exam: normal pigmentation Neurologic: equine dentist II-XII 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, no motor/sensory deficits Last 24 Hour Vital Signs Date Time Temp Pulse Resp B/P (MAP) Pulse Ox O2 Delivery O2 Flow Rate FiO2 08/08/17 12:00 97.3 65 20 120/56 99 Nasal Cannula 4.0 97.3 08/08/17 12:00 66 08/08/17 09:42 116/59 08/08/17 09:42 76 116/59 08/08/17 09:30 76 20 116/59 100 Nasal Cannula 4.0 08/08/17 08:00 69 08/08/17 08:00 97.2 72 20 103/50 100 Nasal Cannula 4.0 97.2 08/08/17 05:00 78 Laboratory Tests Test 08/08/17 08:15 White Blood Count 9.5 K/UL (4.8-10.8) Red Blood Count 3.82 M/UL (4.20-5.40) L Hemoglobin 10.3 G/DL (12.0-16.0) L Hematocrit 32.2 % (37.0-47.0) L Mean Corpuscular Volume 84 FL (80-99) Mean Corpuscular Hemoglobin 27.1 PG (27.0-31.0) Mean Corpuscular Hemoglobin Concent 32.1 G/DL (32.0-36.0) Red Cell Distribution Width 14.9 % (11.6-14.8) H Platelet Count 203 K/UL (150-450) Mean Platelet Volume 9.4 FL (6.5-10.1) Neutrophils (%) (Auto) 76.5 % (45.0-75.0) H Lymphocytes (%) (Auto) 12.8 % (20.0-45.0) L Monocytes (%) (Auto) 7.1 % (1.0-10.0) Eosinophils (%) (Auto) 3.0 % (0.0-3.0) Basophils (%) (Auto) 0.6 % (0.0-2.0) Sodium Level 137 MMOL/L (136-145) Potassium Level 4.4 MMOL/L (3.5-5.1) Chloride Level 102 MMOL/L (98-107) Carbon Dioxide Level 28 MMOL/L (21-32) Anion Gap 7 mmol/L (5-15) Blood Urea Nitrogen 34 mg/dL (7-18) H Creatinine 2.1 MG/DL (0.55-1.30) H Estimat Glomerular Filtration Rate 23.3 mL/min (>60) Glucose Level 177 MG/DL (74-106) H Calcium Level 8.7 MG/DL (8.5-10.1) Phosphorus Level 5.2 MG/DL (2.5-4.9) H Magnesium Level 1.7 MG/DL (1.8-2.4) L Total Bilirubin 0.4 MG/DL (0.2-1.0) Aspartate Amino Transf (AST/SGOT) 12 U/L (15-37) L Alanine Aminotransferase (ALT/SGPT) 12 U/L (12-78) Alkaline Phosphatase 94 U/L (46-116) Troponin I 0.026 ng/mL (0.000-0.056) Total Protein 7.3 G/DL (6.4-8.2) Albumin 2.9 G/DL (3.4-5.0) L Globulin 4.4 g/dL Albumin/Globulin Ratio 0.7 (1.0-2.7) L Height (Feet): 5 Height (Inches): 3.00 Weight (Pounds): 192 Medications Current Medications Medications (Trade) Dose Ordered Sig/[place] Route PRN Reason Start Time Stop Time Status Last Admin Dose Admin Acetaminophen (Tylenol) 500 mg Q4H PRN ORAL Mild Pain/Temp > 100.5 08/08/17 07:00 09/07/17 06:59 08/08/17 09:34 Aspirin (Ecotrin) 81 mg DAILY ORAL 08/08/17 09:00 09/07/17 08:59 08/08/17 09:34 Atorvastatin Calcium (Lipitor) 40 mg BEDTIME ORAL 08/08/17 21:00 09/07/17 20:59 Azithromycin (Zithromax) 250 mg DAILY ORAL 08/08/17 09:00 08/15/17 08:59 08/08/17 09:34 Carvedilol (Coreg) 6.25 mg EVERY 12 HOURS ORAL 08/08/17 09:00 09/07/17 08:59 08/08/17 09:42 Ceftriaxone Sodium 1 gm/ Sodium Chloride 55 ml @ 110 mls/hr Q24H IVPB 08/08/17 10:00 08/15/17 09:59 08/08/17 09:43 Clopidogrel Bisulfate (Plavix) 75 mg DAILY ORAL 08/08/17 09:00 09/07/17 08:59 08/08/17 09:34 Dextrose (Dextrose 50%) STAT PRN IV Hypoglycemia 08/08/17 07:00 09/07/17 06:59 Fexofenadine HCl (Rebecca) 60 mg TWICE A DAY ORAL 08/08/17 10:00 09/07/17 09:59 08/08/17 12:03 Insulin Aspart (NovoLOG) BEFORE MEALS AND HS SUBQ 08/08/17 11:30 09/07/17 11:29 08/08/17 13:14 Isosorbide Mononitrate (Imdur) 30 mg DAILY ORAL 08/08/17 09:00 09/07/17 08:59 08/08/17 09:42 Metronidazole 100 ml @ 100 mls/hr Q8HR IVPB 08/08/17 11:00 08/15/17 10:59 08/08/17 12:04 Pantoprazole (Protonix) 40 mg DAILY ORAL 08/08/17 09:00 09/07/17 08:59 08/08/17 09:35 Polyethylene Glycol (Miralax) 17 gm BEDTIME ORAL 08/08/17 21:00 09/07/17 20:59 Pregabalin (Lyrica) 50 mg Q12HR ORAL 08/08/17 09:00 09/07/17 08:59 08/08/17 09:00 Quetiapine Fumarate (SEROquel) 12.5 mg HSPRN PRN ORAL Agitation 08/08/17 12:30 09/07/17 12:29 Simethicone (Mylicon) 80 mg Q6H PRN ORAL Abdominal cramps 08/08/17 07:00 09/07/17 06:59 Sucralfate (Carafate) 1 gm FOUR TIMES A DAY ORAL 08/08/17 09:00 09/07/17 08:59 08/08/17 13:17 Assessment/Plan Problem List: (1) Pneumonia ICD Codes: J18.9 - Pneumonia, unspecified organism SNOMED: 264126340 (2) AICD (automatic cardioverter/defibrillator) present ICD Codes: Z95.810 - Presence of automatic (implantable) cardiac defibrillator SNOMED: 39838489, 030987688 (3) COPD (chronic obstructive pulmonary disease) ICD Codes: J44.9 - Chronic obstructive pulmonary disease, unspecified SNOMED: 79470432 (4) EF 25% (5) Acute kidney injury ICD Codes: N17.9 - Acute kidney failure, unspecified SNOMED: 14990231 (6) Obesity ICD Codes: E66.9 - Obesity, unspecified SNOMED: 831551922 (7) Hemiplegia affecting right dominant side ICD Codes: G81.91 - Hemiplegia, unspecified affecting right dominant side SNOMED: 25590085 Assessment/Plan respiratory treatment sputum for c/s abx echo cardio to see renal and hem work up. ERVIN COHN Aug 08, 2017 15:04
[2017-08-08 15:16] LABS: CREATINE KINASE 54 U/L (26-308)
--- NOTE | 2017-08-08 15:44 | Cardiac Electrophysiology PN ---
Subjective Subjective Cardiology/EP consult dictated [id number] Objective Last 24 Hour Vital Signs Date Time Temp Pulse Resp B/P (MAP) Pulse Ox O2 Delivery O2 Flow Rate FiO2 08/08/17 12:00 97.3 65 20 120/56 99 Nasal Cannula 4.0 97.3 08/08/17 12:00 66 08/08/17 09:42 116/59 08/08/17 09:42 76 116/59 08/08/17 09:30 76 20 116/59 100 Nasal Cannula 4.0 08/08/17 08:00 69 08/08/17 08:00 97.2 72 20 103/50 100 Nasal Cannula 4.0 97.2 08/08/17 05:00 78 Laboratory Tests Test 08/08/17 08:15 White Blood Count 9.5 K/UL (4.8-10.8) Red Blood Count 3.82 M/UL (4.20-5.40) L Hemoglobin 10.3 G/DL (12.0-16.0) L Hematocrit 32.2 % (37.0-47.0) L Mean Corpuscular Volume 84 FL (80-99) Mean Corpuscular Hemoglobin 27.1 PG (27.0-31.0) Mean Corpuscular Hemoglobin Concent 32.1 G/DL (32.0-36.0) Red Cell Distribution Width 14.9 % (11.6-14.8) H Platelet Count 203 K/UL (150-450) Mean Platelet Volume 9.4 FL (6.5-10.1) Neutrophils (%) (Auto) 76.5 % (45.0-75.0) H Lymphocytes (%) (Auto) 12.8 % (20.0-45.0) L Monocytes (%) (Auto) 7.1 % (1.0-10.0) Eosinophils (%) (Auto) 3.0 % (0.0-3.0) Basophils (%) (Auto) 0.6 % (0.0-2.0) Sodium Level 137 MMOL/L (136-145) Potassium Level 4.4 MMOL/L (3.5-5.1) Chloride Level 102 MMOL/L (98-107) Carbon Dioxide Level 28 MMOL/L (21-32) Anion Gap 7 mmol/L (5-15) Blood Urea Nitrogen 34 mg/dL (7-18) H Creatinine 2.1 MG/DL (0.55-1.30) H Estimat Glomerular Filtration Rate 23.3 mL/min (>60) Glucose Level 177 MG/DL (74-106) H Uric Acid 8.2 MG/DL (2.6-7.2) H Calcium Level 8.7 MG/DL (8.5-10.1) Phosphorus Level 5.2 MG/DL (2.5-4.9) H Magnesium Level 1.7 MG/DL (1.8-2.4) L Total Bilirubin 0.4 MG/DL (0.2-1.0) Aspartate Amino Transf (AST/SGOT) 12 U/L (15-37) L Alanine Aminotransferase (ALT/SGPT) 12 U/L (12-78) Alkaline Phosphatase 94 U/L (46-116) Total Creatine Kinase 54 U/L (26-308) Troponin I 0.026 ng/mL (0.000-0.056) Total Protein 7.3 G/DL (6.4-8.2) Albumin 2.9 G/DL (3.4-5.0) L Globulin 4.4 g/dL Albumin/Globulin Ratio 0.7 (1.0-2.7) L DELORES CHAPRARO Aug 08, 2017 15:44
--- NOTE | 2017-08-08 15:57 | Diagnostic Imaging Report ---
Indication: Dyspnea Comparison: 12/18/2016 A single view chest radiograph was obtained. Findings: There is enlargement of the cardiac silhouette with pulmonary vascular redistribution and prominence, hazy vessel margins and the suggestion of interstitial edema consistent with CHF. Pacemaker noted. Bones are osteopenic. IMPRESSION: Moderate CHF
[2017-08-08 16:00] VITALS: BP 110/48
--- NOTE | 2017-08-08 17:45 | Consultation ---
DATE OF CONSULTATION: 08/08/2017 HISTORY OF PRESENT ILLNESS: This is a 72-year-old Polish-speaking lady with multiple medical problems including acute renal failure, hypocalcemia, COPD, acute pancreatitis, hyperkalemia, diabetic neuropathy, diabetes mellitus, CHF, history of cerebrovascular disease, dementia, encephalopathy, anemia, renal failure, pancreatitis, LBBB, leukocytosis, who has been admitted to the hospital for medical stabilization. The patient has been presenting with waxing and consciousness. During the evaluation, the patient was complaining of shortness of breath and is diagnosed with most likely pneumonia. The patient has been presenting waxing and waning consciousness and was agitated in the ER. During the evaluation, was a poor historian and was not able to answer the questions appropriately, has impairment of memory, concentration, and attention. 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 PAST MEDICAL HISTORY: As above. ALLERGIES: No known drug allergies. SUBSTANCE ABUSE HISTORY: No known history of illicit drug use or alcohol. MENTAL STATUS EXAMINATION: The patient is alert and oriented to self. Mood was dysphoric. Affect is flat. Thought process, there was a paucity of thought content. Thought content, no suicidal or homicidal ideation. Cognition is impaired. The patient has waxing and waning consciousness. Insight and judgment non-existent. ASSESSMENT: [place] I Encephalopathy, cognitive impairment, most slightly vascular type. [place] II Deferred. [place] III As above. [place] IV Low [place] V 20 PLAN: 1. The patient will be started on low dose of Seroquel as needed. 2. We will continue follow and readjust the medications. Teresa Douglas M.D. DR: Zac JOB#: [id number] CC:
--- NOTE | 2017-08-08 17:53 | History & Physical ---
History and Physical History & Physicial Dictated for Int Med-Dr Wright no. [id number]. JOVANA AGUILAR Aug 08, 2017 17:53
[2017-08-08] MEDS: HydrALAZINE 10mg Tab ORAL SCH (18:00)
[2017-08-08 20:00] VITALS: BP 94/57
--- NOTE | 2017-08-08 20:45 | History and Physical Report ---
DATE OF ADMISSION: 08/08/2017 CHIEF COMPLAINT: The patient is a 72-year-old female, presents with chief complaint of shortness of breath. HISTORY OF PRESENT ILLNESS: Began 08/07/2017. The patient began to experience shortness of breath. The patient also had a cough productive of whitish phlegm. The patient denies fevers or chills. The patient initially presented to [facility] emergency room. A chest x-ray revealed right middle lobe pneumonia. The patient is transferred to [facility] for insurance purposes. The patient is admitted with shortness of breath and right middle lobe pneumonia. PAST MEDICAL HISTORY: Significant for 1. Chronic obstructive pulmonary disease. 2. Congestive heart failure. 3. Cardiomyopathy. 4. Diabetes type 2. 5. Hypertension. 6. History of cerebrovascular accident. 7. Right hemiparesis. 8. History of cervical cancer, status post total abdominal hysterectomy. 9. Iron deficiency anemia. 10. Complete left bundle-branch block, status post automatic implanted cardioverter-defibrillator. PAST SURGICAL HISTORY: Significant for 1. Total abdominal hysterectomy. 2. Appendectomy. 3. Automatic implantable cardioverter-defibrillator in 11/2015. CURRENT MEDICATIONS: 1. Aspirin 81 mg one tablet p.o. daily. 2. Atorvastatin 40 mg p.o. at bedtime. 3. Coreg 6.25 mg p.o. twice daily. 4. Clopidogrel 75 mg p.o. daily. 5. Nexium 40 mg p.o. daily. 6. Lasix 20 mg p.o. daily. 7. NovoLog sliding scale. 8. Lantus 25 units subcutaneously at bedtime. 9. Isordil 30 mg p.o. daily. 10. Claritin 10 mg p.o. daily. 11. Lyrica 50 mg p.o. twice daily. 12. Spironolactone 25 mg p.o. daily. ALLERGIES: No known drug allergies. SOCIAL HISTORY: The patient lives at home with her adult son. The patient denies tobacco or alcohol use. REVIEW OF SYSTEMS: CONSTITUTIONAL: The patient denies weight loss or weight gain. The patient denies fevers or chills. HEENT: The patient denies ear or throat pain. The patient denies headache. CARDIOVASCULAR: The patient has palpitations or chest pain. CHEST: The patient complains of shortness of breath as above. The patient denies wheezes. ABDOMEN: The patient denies nausea, vomiting, diarrhea, or constipation. GENITOURINARY: The patient denies dysuria or increased frequency of urination. NEUROMUSCULAR: The patient denies seizures or generalized weakness. PHYSICAL EXAMINATION: GENERAL: The patient is well-developed and well-nourished female, in mild respiratory distress. VITAL SIGNS: Temperature 97.2 degrees, respirations 20, pulse 72, and blood pressure 103/50. HEENT: Eyes, pupils equal and responsive to light and accommodation. Extraocular movements are intact. NECK: Supple. No lymphadenopathy. CHEST: Decreased breath sounds in the right lower bases with few scattered wheezes. Otherwise, clear to auscultation bilaterally without wheezes or rales. CARDIOVASCULAR: Regular rhythm and rate. S1 and S2 normal without murmurs, rubs, or gallops. ABDOMEN: Soft, nontender, and nondistended. Positive bowel sounds. No evidence of hepatosplenomegaly. Currently, no rebound or guarding noted. EXTREMITIES: Negative for clubbing, cyanosis, or edema. RECTAL/GENITAL: Refused. NEUROLOGIC: Cranial nerves II through XII are grossly intact without focal deficits. Motor strength is 3/5 on the right and 5/5 on the left. Deep tendon reflexes are 2+ plantar. LABORATORY AND DIAGNOSTIC DATA: Laboratory studies from [facility], WBC 10.2, hemoglobin 10.7, hematocrit 33.0, and platelets 205,000. Sodium 135, potassium 3.8, chloride 103, CO2 23, BUN 29, creatinine 2.02, and glucose 221. Chest x-ray revealed right middle lobe consolidation consistent with pneumonia. ASSESSMENT: This is a 72-year-old female 1. Right middle lobe pneumonia. 2. Shortness of breath. 3. Epigastric pain. 4. Acute on chronic renal failure. 5. Chronic obstructive pulmonary disease. 6. Congestive heart failure. 7. Cardiomyopathy. 8. Diabetes type 2. 9. Hypertension. 10. Defibrillator in situ. 11. History of cerebrovascular disease. 12. Right hemiplegia. 13. History of iron deficiency anemia. 14. History of left bundle-branch block. TREATMENT: 1. Pneumonia/shortness of breath. A Pulmonary consultation has been obtained with Dr. Ida Nolen. The patient has been started empirically on ceftriaxone and Flagyl. We will follow recommendations of Pulmonary. 2. Renal failure. A Nephrology consultation has been obtained with Dr. Mcdonald. 3. Chronic obstructive pulmonary disease. As above, a Pulmonary consultation has been obtained with Dr. Ida Nolen. 4. Congestive heart failure/cardiomyopathy. A Cardiology consultation has been obtained with Dr. Remi Howard. 5. Diabetes type 2. Continue NovoLog sliding scale. 6. Hypertension. Continue Coreg as above. 7. Defibrillator in situ. 8. History of cerebrovascular disease with right hemiplegia. 9. Iron deficiency anemia. 10. Left bundle-branch block. Ash Li M.D. DR: ALFREDO JOB#: [id number] CC:
[2017-08-08] MEDS: Atorvastatin 20mg tab ORAL SCH (22:12)
[2017-08-08] MEDS: Miralax 17gm pkt ORAL SCH (22:12)
--- NOTE | 2017-08-08 23:30 | Consultation ---
DATE OF CONSULTATION: 08/08/2017 CARDIOLOGY CONSULTATION CONSULTING PHYSICIAN: Remi Howard M.D. REFERRING PHYSICIAN: Brendan Wright M.D. REASON FOR CONSULTATION: Management of congestive heart failure and evaluation of the patient's defibrillator. HISTORY OF PRESENT ILLNESS: The patient is a very pleasant 72-year-old lady under my Cardiology care. I saw her also recently at [facility]. The patient has history of severe cardiomyopathy with ejection fraction of around 20%, who had undergone biventricular Biotronik defibrillator implantation by me. The patient also a history of diabetes and complete left bundle-branch block and cervical cancer, status post total abdominal hysterectomy. The patient presented to [facility] complaining of shortness of breath. The patient was then transferred to [facility] as the patient is not a [facility] member. Chest x-ray did show right middle lobe infiltrate and fluid in minor fissure. PAST MEDICAL HISTORY: 1. Hypertension. 2. Severe cardiomyopathy with ejection fraction 25%. 3. Status post Biotronik biventricular defibrillator implantation by me. 4. History of CVA with right-sided weakness. 5. COPD. FAMILY HISTORY: Noncontributory. MEDICATIONS: Aspirin, Coreg, Plavix, Lipitor, Lasix, insulin, Isordil, and Aldactone. FAMILY HISTORY: Noncontributory. SOCIAL HISTORY: She lives at home. Does not smoke or drink alcohol. REVIEW OF SYSTEMS: Thoroughly performed and was negative other than what was mentioned in the history of present illness. PHYSICAL EXAMINATION: VITAL SIGNS: Blood pressure is 120/56, pulse is 65, respirations 20, and temperature 97.3. HEAD AND NECK: Shows no JVD. LUNGS: Clear. CARDIOVASCULAR: Shows regular S1 and S2 with no gallop or murmur. The ICD in the left subclavian intact. ABDOMEN: Soft. EXTREMITIES: A 1+ pitting edema. LABORATORY AND DIAGNOSTIC DATA: Labs show white count of 9.5, hemoglobin of 10.2, hematocrit of 32.2, and platelet count of 203,000. Sodium is 137, potassium 4.4, BUN of 34, creatinine of 2.1, and glucose of 177. Uric acid is 8.2. Troponin is 0.026. Triglycerides is 200. ASSESSMENT/PLAN: 1. Status post biventricular defibrillator implantation with Biotronik device. We will interrogate the device to make sure it is functioning normally and optimize other settings. 2. Shortness of breath, likely due to exacerbation of congestive heart failure. The patient's white count is only 9.5. Resume the patient's heart failure medications including Coreg and Isordil and add hydralazine to her medical regimen. In view of renal failure, we will avoid JAROCHO inhibitors. We will check a stat BNP as well. 3. Hypertension. Continue current heart failure therapy. 4. Renal failure with a BUN of 34 and creatinine of 2.1. Avoid Aldactone, JAROCHO inhibitor, and angiotensin receptor dayna at this time. Thank you very much, Dr. Wright, for allowing me to participate in the care of this patient. Please do not hesitate to contact me for any questions regarding my evaluation. Remi Howard M.D. DR: ROBERT JOB#: [id number] CC:
[2017-08-09] VITALS (7 sets, daily range): BP systolic 93–129; BP diastolic 45–89
[2017-08-09] MEDS: Albuterol/Ipratropium 3ml neb HHN PRN ×3 (01:36→20:16)
[2017-08-09] MEDS: Promethazine/Codeine 5ml UD ORAL PRN ×3 (04:20→17:52)
[2017-08-09] MEDS: NovoLOG Insulin Flexpen SUBQ SCH ×4 (06:30→21:14)
[2017-08-09 08:54] LABS: BASOPHILS % (AUTO) 0.8 % (0.0-2.0); EOSINOPHILS % (AUTO) 6.3 % (0.0-3.0); HEMATOCRIT 30.6 % (37.0-47.0); HEMOGLOBIN 9.9 G/DL (12.0-16.0); LYMPHOCYTES % (AUTO) 15.8 % (20.0-45.0); MEAN CORPUSCULAR VOLUME 85 FL (80-99); MONOCYTES % (AUTO) 10.1 % (1.0-10.0); NEUTROPHILS % (AUTO) 66.9 % (45.0-75.0); PLATELET COUNT 195 K/UL (150-450); RED CELL DISTRIBUTION WIDTH 14.7 % (11.6-14.8); WHITE BLOOD COUNT 8.8 K/UL (4.8-10.8)
[2017-08-09 08:59] LABS: ANION GAP 7 mmol/L (5-15); BLOOD UREA NITROGEN 35 mg/dL (7-18); CALCIUM 8.7 MG/DL (8.5-10.1); CARBON DIOXIDE 28 MMOL/L (21-32); CHLORIDE 105 MMOL/L (98-107); POTASSIUM 4.4 MMOL/L (3.5-5.1); SODIUM 140 MMOL/L (136-145)
[2017-08-09 09:43] LABS: IRON 24 ug/dL (50-175); TOTAL IRON BINDING CAPACITY 284 ug/dL (250-450)
[2017-08-09 09:47] LABS: % IRON SATURATION 8 % (15-50)
[2017-08-09] MEDS: Aspirin EC 81mg tab ORAL SCH (10:39)
[2017-08-09] MEDS: Sucralfate 1gm tab ORAL SCH (10:39)
[2017-08-09] MEDS: cefTRIAXone 1 GM in NS 55 ML IVPB SCH (10:40)
[2017-08-09] MEDS: HydrALAZINE 10mg Tab ORAL SCH ×2 (10:51→17:55)
[2017-08-09] MEDS: Azithromycin 250mg tab ORAL SCH (10:52)
[2017-08-09] MEDS: Lyrica 50mg cap ORAL SCH ×2 (10:52→21:17)
[2017-08-09] MEDS: Carvedilol 6.25mg Tab ORAL SCH (10:52)
[2017-08-09] MEDS: Imdur 30mg tab ORAL SCH (10:52)
[2017-08-09 11:05] LABS: LACTATE DEHYDROGENASE 202 U/L (81-234)
--- NOTE | 2017-08-09 11:13 | Internal Med Progress Note ---
Subjective Date of Service: Aug 09, 2017 Physician Name Jovana Aguilar Attending Physician Brendan Wright MD Current Medications Medications (Trade) Dose Ordered Sig/[place] Route PRN Reason Start Time Stop Time Status Last Admin Dose Admin Acetaminophen (Tylenol) 500 mg Q4H PRN ORAL Mild Pain/Temp > 100.5 08/08/17 07:00 09/07/17 06:59 08/08/17 18:31 Albuterol/ Ipratropium (Albuterol/ Ipratropium) 3 ml Q4H PRN HHN Shortness of Breath 08/08/17 16:30 08/13/17 16:29 08/09/17 09:55 Aspirin (Ecotrin) 81 mg DAILY ORAL 08/08/17 09:00 09/07/17 08:59 08/09/17 10:39 Atorvastatin Calcium (Lipitor) 40 mg BEDTIME ORAL 08/08/17 21:00 09/07/17 20:59 08/08/17 22:12 Azithromycin (Zithromax) 250 mg DAILY ORAL 08/08/17 09:00 08/15/17 08:59 08/09/17 10:52 Carvedilol (Coreg) 6.25 mg EVERY 12 HOURS ORAL 08/08/17 09:00 09/07/17 08:59 08/09/17 10:52 Ceftriaxone Sodium 1 gm/ Sodium Chloride 55 ml @ 110 mls/hr Q24H IVPB 08/08/17 10:00 08/15/17 09:59 08/09/17 10:40 Clopidogrel Bisulfate (Plavix) 75 mg DAILY ORAL 08/08/17 09:00 09/07/17 08:59 08/09/17 10:40 Dextrose (Dextrose 50%) STAT PRN IV Hypoglycemia 08/08/17 07:00 09/07/17 06:59 Fexofenadine HCl (Rebecca) 60 mg TWICE A DAY ORAL 08/08/17 10:00 09/07/17 09:59 08/09/17 10:39 Furosemide (Lasix) 20 mg EVERY 12 HOURS IV 08/08/17 21:00 09/07/17 20:59 08/09/17 10:39 Hydralazine HCl (Apresoline) 10 mg BID ORAL 08/08/17 18:00 09/07/17 17:59 08/09/17 10:51 Insulin Aspart (NovoLOG) BEFORE MEALS AND HS SUBQ 08/08/17 11:30 09/07/17 11:29 08/08/17 13:14 Isosorbide Mononitrate (Imdur) 30 mg DAILY ORAL 08/08/17 09:00 09/07/17 08:59 08/09/17 10:52 Metronidazole 100 ml @ 100 mls/hr Q8HR IVPB 08/08/17 11:00 08/15/17 10:59 08/09/17 06:34 Pantoprazole (Protonix) 40 mg DAILY ORAL 08/08/17 09:00 09/07/17 08:59 08/09/17 10:39 Polyethylene Glycol (Miralax) 17 gm BEDTIME ORAL 08/08/17 21:00 09/07/17 20:59 08/08/17 22:12 Pregabalin (Lyrica) 50 mg Q12HR ORAL 08/08/17 09:00 09/07/17 08:59 08/09/17 10:52 Promethazine HCl/ Codeine (Phenergan with Codeine) 5 ml Q4H PRN ORAL For Cough 08/08/17 15:15 09/07/17 15:14 08/09/17 04:20 Quetiapine Fumarate (SEROquel) 12.5 mg HSPRN PRN ORAL Agitation 08/08/17 12:30 09/07/17 12:29 Simethicone (Mylicon) 80 mg Q6H PRN ORAL Abdominal cramps 08/08/17 07:00 09/07/17 06:59 Sucralfate (Carafate) 1 gm FOUR TIMES A DAY ORAL 08/08/17 09:00 09/07/17 08:59 08/09/17 10:39 Allergies: Coded Allergies: No Known Allergies (Unverified , 12/18/16) ROS Limited/Unobtainable: No Constitutional: Reports: no symptoms HEENT: Reports: no symptoms Cardiovascular: Reports: no symptoms Respiratory: Reports: shortness of breath Gastrointestinal/Abdominal: Reports: abdominal pain Genitourinary: Reports: no symptoms 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: Reports: no symptoms Subjective 72 YO F admitted with shortness of breath. Now pneumonia and Jose D heart failure. Cover for Int Med-Dr Wright. Objective Last Vital Signs Date Time Temp Pulse Resp B/P (MAP) Pulse Ox O2 Delivery O2 Flow Rate FiO2 08/09/17 10:52 116/67 08/09/17 10:52 92 08/09/17 10:04 20 100 Nasal Cannula 2.0 28 08/09/17 04:00 97.0 97.0 General Appearance: WD/WN, no apparent distress, alert EENT: PERRL/EOMI, normal ENT inspection Neck: non-tender, normal alignment, supple, normal inspection Cardiovascular: normal peripheral pulses, normal rate, regular rhythm, no gallop/murmur, no JVD Respiratory/Chest: chest wall non-tender, lungs clear, normal breath sounds, no respiratory distress, no accessory muscle use Abdomen: normal bowel sounds, no organomegaly, no mass, decreased bowel sounds , tender Extremities: normal range of motion Neurologic: engine turner II-XII 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, no motor/sensory deficits Skin: normal pigmentation, warm/dry Laboratory Tests Test 08/09/17 07:00 08/09/17 08:00 Urine Eosinophils None seen Urine Random Sodium 51 MEQ/L (20-110) Urine Potassium Timed 14 mmol/L (12-62) White Blood Count 8.8 K/UL (4.8-10.8) Red Blood Count 3.60 M/UL (4.20-5.40) L Hemoglobin 9.9 G/DL (12.0-16.0) L Hematocrit 30.6 % (37.0-47.0) L Mean Corpuscular Volume 85 FL (80-99) Mean Corpuscular Hemoglobin 27.4 PG (27.0-31.0) Mean Corpuscular Hemoglobin Concent 32.3 G/DL (32.0-36.0) Red Cell Distribution Width 14.7 % (11.6-14.8) Platelet Count 195 K/UL (150-450) Mean Platelet Volume 9.7 FL (6.5-10.1) Neutrophils (%) (Auto) 66.9 % (45.0-75.0) Lymphocytes (%) (Auto) 15.8 % (20.0-45.0) L Monocytes (%) (Auto) 10.1 % (1.0-10.0) H Eosinophils (%) (Auto) 6.3 % (0.0-3.0) H Basophils (%) (Auto) 0.8 % (0.0-2.0) Neutrophils % (Manual) Pending Lymphocytes % (Manual) Pending Platelet Estimate Pending Platelet Morphology Pending Erythrocyte Sedimentation Rate 52 MM/HR (0-30) H Reticulocyte Count 1.9 % (0.0-2.0) Prothrombin Time 10.6 SEC (9.30-11.50) Prothromb Time International Ratio 1.0 (0.9-1.1) Activated Partial Thromboplast Time 29 SEC (23-33) Sodium Level 140 MMOL/L (136-145) Potassium Level 4.4 MMOL/L (3.5-5.1) Chloride Level 105 MMOL/L (98-107) Carbon Dioxide Level 28 MMOL/L (21-32) Anion Gap 7 mmol/L (5-15) Blood Urea Nitrogen 35 mg/dL (7-18) H Creatinine 2.0 MG/DL (0.55-1.30) H Estimat Glomerular Filtration Rate 24.6 mL/min (>60) Glucose Level 89 MG/DL (74-106) Calcium Level 8.7 MG/DL (8.5-10.1) Iron Level 24 ug/dL (50-175) L Total Iron Binding Capacity 284 ug/dL (250-450) Percent Iron Saturation 8 % (15-50) L Unsaturated Iron Binding 260 ug/dL (112-346) Lactate Dehydrogenase Pending Troponin I Pending Pro-B-Type Natriuretic Peptide Pending Vitamin B12 Level 690 PG/ML (193-986) Folate 10.9 NG/ML (8.6-58.9) Digoxin Level Pending Microbiology Date/Time Source Procedure Growth Status 08/08/17 20:00 Nasal Nares Influenza Types A,B Antigen (CANDICE) - Final Complete Intake and Output 08/08/17 08/09/17 19:00 07:00 Intake Total 550 ml 150 ml Balance 550 ml 150 ml Intake Oral 550 ml 50 ml IV Total 100 ml # Voids 3 Assessment/Plan Problem List: (1) Pneumonia Assessment & Plan: RML. Continue ceftriaxone, azithromycin and flagyl. See pulmonary note. (2) Shortness of breath Assessment & Plan: Due to CHF and pneumonia. (3) Acute renal failure (ARF) Assessment & Plan: See nephrology note. (4) CHF exacerbation Assessment & Plan: Last LVEF=25%. See cardiology note. (5) Cardiomyopathy (6) Diabetes mellitus Assessment & Plan: Continue novolog sliding scale. (7) HTN (hypertension) Assessment & Plan: Continue hydralazine and coreg. (8) Cerebral vascular disease (9) Hemiparesis, right (10) Anemia (11) LBBB (left bundle branch block) Assessment & Plan: S/P pacemaker. See Cardiology note. (12) AICD (automatic cardioverter/defibrillator) present (13) Dysphagia Assessment & Plan: Await video swallow Status: not improved JOVANA AGUILAR Aug 09, 2017 11:13
--- NOTE | 2017-08-09 12:23 | Consultation ---
Consult Note Consult Note ID DIC # [id number] QUETA LENTZ M.D. Aug 09, 2017 12:23
--- NOTE | 2017-08-09 12:32 | General Progress Note ---
Assessment/Plan Status: stable, progressing Subjective Date patient seen: Aug 09, 2017 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: Reports: anxiety, depressed, emotional problems Allergies: Coded Allergies: No Known Allergies (Unverified , 12/18/16) Objective Last 24 Hour Vital Signs Date Time Temp Pulse Resp B/P (MAP) Pulse Ox O2 Delivery O2 Flow Rate FiO2 08/09/17 10:52 116/67 08/09/17 10:52 92 116/08/09/17 10:51 116/08/09/17 10:04 85 20 100 Nasal Cannula 2.0 28 08/09/17 09:56 92 20 98 Nasal Cannula 2.0 28 08/09/17 06:53 Nasal Cannula 3.0 32 08/09/17 06:53 98 Nasal Cannula 3.0 32 08/09/17 06:52 76 20 Nasal Cannula 3.0 32 08/09/17 04:00 97.0 82 24 125/89 99 Nasal Cannula 4.0 97.0 08/09/17 04:00 70 08/09/17 01:37 98 Nasal Cannula 2.0 08/09/17 01:37 Nasal Cannula 2.0 28 08/09/17 01:35 76 20 100 Nasal Cannula 2.0 28 08/09/17 01:34 72 20 99 Nasal Cannula 2.0 28 08/09/17 00:00 96.4 74 20 93/45 99 Nasal Cannula 4.0 96.4 08/09/17 00:00 69 08/08/17 21:00 68 94/57 08/08/17 20:00 97.5 68 20 94/57 100 Nasal Cannula 4.0 97.5 08/08/17 20:00 67 08/08/17 18:00 99/52 08/08/17 16:00 66 08/08/17 16:00 97.1 66 18 110/48 97 Nasal Cannula 4.0 97.1 Intake and Output 08/08/17 08/09/17 19:00 07:00 Intake Total 550 ml 150 ml Balance 550 ml 150 ml Intake Oral 550 ml 50 ml IV Total 100 ml # Voids 3 Laboratory Tests 08/09/17 07:00: Urine Eosinophils None seen, Urine Random Sodium 51, Urine Potassium Timed 14 08/09/17 08:00: White Blood Count 8.8, Red Blood Count 3.60L, Hemoglobin 9.9L, Hematocrit 30.6L , Mean Corpuscular Volume 85, Mean Corpuscular Hemoglobin 27.4, Mean Corpuscular Hemoglobin Concent 32.3, Red Cell Distribution Width 14.7, Platelet Count 195, Mean Platelet Volume 9.7, Neutrophils (%) (Auto) 66.9, Lymphocytes (% ) (Auto) 15.8L, Monocytes (%) (Auto) 10.1H, Eosinophils (%) (Auto) 6.3H, Basophils (%) (Auto) 0.8, Differential Total Cells Counted 100, Neutrophils % ( Manual) 65, Lymphocytes % (Manual) 16L, Monocytes % (Manual) 10, Eosinophils % ( Manual) 8H, Basophils % (Manual) 1, Band Neutrophils 0, Platelet Estimate Adequate, Platelet Morphology Normal, Hypochromasia 1+, Anisocytosis 1+, Erythrocyte Sedimentation Rate 52H, Reticulocyte Count 1.9, Prothrombin Time 10.6, Prothromb Time International Ratio 1.0, Activated Partial Thromboplast Time 29, Sodium Level 140, Potassium Level 4.4, Chloride Level 105, Carbon Dioxide Level 28, Anion Gap 7, Blood Urea Nitrogen 35H, Creatinine 2.0H, Estimat Glomerular Filtration Rate 24.6, Glucose Level 89, Calcium Level 8.7, Iron Level 24L, Total Iron Binding Capacity 284, Percent Iron Saturation 8L, Unsaturated Iron Binding 260, Lactate Dehydrogenase 202, Troponin I 0.018, Pro-B -Type Natriuretic Peptide 2641H, Vitamin B12 Level 690, Folate 10.9, Digoxin Level < 0.2L Height (Feet): 5 Height (Inches): 3.00 Weight (Pounds): 192 General Appearance: no apparent distress, alert, confused Teresa Douglas M.D. Aug 09, 2017 12:32
--- NOTE | 2017-08-09 12:52 | GI Initial Consult Note ---
Rizwana Cotton N.P. 08/09/17 1252: History of Present Illness General Date patient seen: Aug 09, 2017 Time patient seen: 12:39 Referring physician: Jen Rodarte Reason for Consultation: ABDOMINAL PAIN Present Illness HPI HISTORY OF PRESENT ILLNESS: Began 08/07/2017. The patient began to experience shortness of breath. The patient also had a cough productive of whitish phlegm. The patient denies fevers or chills. The patient initially presented to [facility] emergency room. A chest x- ray revealed right middle lobe pneumonia. The patient is transferred to [facility] for insurance purposes. The patient is admitted with shortness of breath and right middle lobe pneumonia. GI consulted for abdominal pain. Pt seen, awake A&Ox4 NAD no active s/x of N/V /D. Has history of chronic abdominal pain, EGD performed last year with no acute findings. Colonoscopy performed in 2014 with no acute finidings. She presents today with anemia, iron deficiency and renal insufficiency. Home Meds Active Scripts Sucralfate (CARAFATE) 1 Gm/10 Ml Oral.susp, 1 GM ORAL FOUR TIMES A DAY for 14 Days, ML Prov:Brendan Wright MD 12/23/16 Carvedilol (Coreg) 6.25 Mg Tablet, 6.25 MG ORAL EVERY 12 HOURS for 30 Days, TAB Prov:JOVANA AGUILAR 12/21/16 Insulin Aspart (Novolog Flexpen) 100 Units/Ml Pen, 0 UNITS SUBQ BEFORE MEALS AND HS, #1 EA Prov:Suzie Jin NP 07/27/15 Reported Medications Polyethylene Glycol 3350* (POLYETHYLENE GLYCOL 3350*) 17 Gm Powd.pack, 17 GM ORAL DAILY, PACKET 12/18/16 Furosemide* (LASIX*) 20 Mg Tablet, 20 MG ORAL DAILY, TAB 12/18/16 Spironolactone* (ALDACTONE*) 25 Mg Tablet, 25 MG ORAL DAILY, TAB 12/18/16 Acetaminophen* (TYLENOL EXTRA STRENGTH*) 500 Mg Tablet, 500 MG ORAL Q6H Y for Mild Pain/Temp > 100.5, TAB 0 Refills 10/11/16 Simethicone (ND-ACID) 80 Mg Tab.chew, 80 MG PO, TAB 10/11/16 Clopidogrel* (CLOPIDOGREL*) 75 Mg Tablet, 75 MG ORAL DAILY, TAB 10/11/16 Insulin Glargine (LANTUS) 100 Unit/1 Ml Insuln.pen, 0 SUBQ BEDTIME, #1 EA 0 Refills 03/19/16 Aspirin Ec* (ASPIRIN EC*) 81 Mg Tablet.dr, 81 MG ORAL DAILY, TAB 02/28/16 Pregabalin (Lyrica) 50 Mg Capsule, 50 MG ORAL BID, CAP 02/28/16 Loratadine (LORATADINE) 10 Mg Tab.rapdis, 10 MG PO DAILY, TAB 02/28/16 Esomeprazole Magnesium (NEXIUM) 40 Mg Capsule.dr, 40 MG ORAL DAILY, CAP 02/28/16 Isosorbide Dinitrate* (ISORDIL*) 30 Mg Tablet, 30 MG ORAL DAILY, TAB 0 Refills 02/28/16 Atorvastatin Calcium* (ATORVASTATIN CALCIUM*) 20 Mg Tablet, 40 MG ORAL BEDTIME, TAB 11/06/15 Med list reviewed/reconciled: Yes Allergies: Coded Allergies: No Known Allergies (Unverified , 12/18/16) Patient History PMH Narrative PAST MEDICAL HISTORY: Significant for 1. Chronic obstructive pulmonary disease. 2. Congestive heart failure. 3. Cardiomyopathy. 4. Diabetes type 2. 5. Hypertension. 6. History of cerebrovascular accident. 7. Right hemiparesis. 8. History of cervical cancer, status post total abdominal hysterectomy. 9. Iron deficiency anemia. 10. Complete left bundle-branch block, status post automatic implanted cardioverter-defibrillator. PAST SURGICAL HISTORY: Significant for 1. Total abdominal hysterectomy. 2. Appendectomy. 3. Automatic implantable cardioverter-defibrillator in 11/2015. Social History: Denies: smoking, alcohol use, drug use, other Review of Systems All Other Systems: negative except mentioned in HPI Physical Exam Vital Signs Date Time Temp Pulse Resp B/P (MAP) Pulse Ox O2 Delivery O2 Flow Rate FiO2 08/08/17 05:00 78 08/08/17 08:00 97.2 20 103/50 100 Nasal Cannula 4.0 97.2 08/09/17 01:34 28 Sp02 EP Interpretation: reviewed, normal Labs Laboratory Tests Test 08/09/17 07:00 08/09/17 08:00 Urine Eosinophils None seen Urine Random Sodium 51 MEQ/L (20-110) Urine Potassium Timed 14 mmol/L (12-62) White Blood Count 8.8 K/UL (4.8-10.8) Red Blood Count 3.60 M/UL (4.20-5.40) L Hemoglobin 9.9 G/DL (12.0-16.0) L Hematocrit 30.6 % (37.0-47.0) L Mean Corpuscular Volume 85 FL (80-99) Mean Corpuscular Hemoglobin 27.4 PG (27.0-31.0) Mean Corpuscular Hemoglobin Concent 32.3 G/DL (32.0-36.0) Red Cell Distribution Width 14.7 % (11.6-14.8) Platelet Count 195 K/UL (150-450) Mean Platelet Volume 9.7 FL (6.5-10.1) Neutrophils (%) (Auto) 66.9 % (45.0-75.0) Lymphocytes (%) (Auto) 15.8 % (20.0-45.0) L Monocytes (%) (Auto) 10.1 % (1.0-10.0) H Eosinophils (%) (Auto) 6.3 % (0.0-3.0) H Basophils (%) (Auto) 0.8 % (0.0-2.0) Differential Total Cells Counted 100 Neutrophils % (Manual) 65 % (45-75) Lymphocytes % (Manual) 16 % (20-45) L Monocytes % (Manual) 10 % (1-10) Eosinophils % (Manual) 8 % (0-3) H Basophils % (Manual) 1 % (0-2) Band Neutrophils 0 % (0-8) Platelet Estimate Adequate Platelet Morphology Normal Hypochromasia 1+ Anisocytosis 1+ Erythrocyte Sedimentation Rate 52 MM/HR (0-30) H Reticulocyte Count 1.9 % (0.0-2.0) Prothrombin Time 10.6 SEC (9.30-11.50) Prothromb Time International Ratio 1.0 (0.9-1.1) Activated Partial Thromboplast Time 29 SEC (23-33) Sodium Level 140 MMOL/L (136-145) Potassium Level 4.4 MMOL/L (3.5-5.1) Chloride Level 105 MMOL/L (98-107) Carbon Dioxide Level 28 MMOL/L (21-32) Anion Gap 7 mmol/L (5-15) Blood Urea Nitrogen 35 mg/dL (7-18) H Creatinine 2.0 MG/DL (0.55-1.30) H Estimat Glomerular Filtration Rate 24.6 mL/min (>60) Glucose Level 89 MG/DL (74-106) Calcium Level 8.7 MG/DL (8.5-10.1) Iron Level 24 ug/dL (50-175) L Total Iron Binding Capacity 284 ug/dL (250-450) Percent Iron Saturation 8 % (15-50) L Unsaturated Iron Binding 260 ug/dL (112-346) Lactate Dehydrogenase 202 U/L (81-234) Troponin I 0.018 ng/mL (0.000-0.056) Pro-B-Type Natriuretic Peptide 2641 pg/mL (0-125) H Vitamin B12 Level 690 PG/ML (193-986) Folate 10.9 NG/ML (8.6-58.9) Digoxin Level < 0.2 NG/ML (0.9-2.0) L General Appearance: well appearing, no apparent distress, alert, obese Head: normocephalic EENT: PERRL/EOMI, normal ENT inspection Neck: supple Respiratory: normal breath sounds, no respiratory distress Cardiovascular: normal rate Gastrointestinal: normal inspection, non tender, soft, normal bowel sounds, non -distended Rectal: deferred Genitourinary: no CVA tenderness Musculoskeletal: normal inspection, back normal Neurologic: normal inspection, alert, oriented x3, responsive Psychiatric: normal inspection, judgement/insight normal, memory normal Skin: normal inspection, normal color, no rash, warm/dry, palpation normal, well hydrated Lymphatic: normal inspection, no adenopathy Current Medications Current Medications Medications (Trade) Dose Ordered Sig/[place] Route PRN Reason Start Time Stop Time Status Last Admin Dose Admin Acetaminophen (Tylenol) 500 mg Q4H PRN ORAL Mild Pain/Temp > 100.5 08/08/17 07:00 09/07/17 06:59 08/08/17 18:31 Albuterol/ Ipratropium (Albuterol/ Ipratropium) 3 ml Q4H PRN HHN Shortness of Breath 08/08/17 16:30 08/13/17 16:29 08/09/17 09:55 Aspirin (Ecotrin) 81 mg DAILY ORAL 08/08/17 09:00 09/07/17 08:59 08/09/17 10:39 Atorvastatin Calcium (Lipitor) 40 mg BEDTIME ORAL 08/08/17 21:00 09/07/17 20:59 08/08/17 22:12 Azithromycin (Zithromax) 250 mg DAILY ORAL 08/08/17 09:00 08/15/17 08:59 08/09/17 10:52 Carvedilol (Coreg) 6.25 mg EVERY 12 HOURS ORAL 08/08/17 09:00 09/07/17 08:59 08/09/17 10:52 Ceftriaxone Sodium 1 gm/ Sodium Chloride 55 ml @ 110 mls/hr Q24H IVPB 08/08/17 10:00 08/15/17 09:59 08/09/17 10:40 Clopidogrel Bisulfate (Plavix) 75 mg DAILY ORAL 08/08/17 09:00 09/07/17 08:59 08/09/17 10:40 Dextrose (Dextrose 50%) STAT PRN IV Hypoglycemia 08/08/17 07:00 09/07/17 06:59 Fexofenadine HCl (Rebecca) 60 mg TWICE A DAY ORAL 08/08/17 10:00 09/07/17 09:59 08/09/17 10:39 Furosemide (Lasix) 20 mg EVERY 12 HOURS IV 08/08/17 21:00 09/07/17 20:59 08/09/17 10:39 Hydralazine HCl (Apresoline) 10 mg BID ORAL 08/08/17 18:00 09/07/17 17:59 08/09/17 10:51 Insulin Aspart (NovoLOG) BEFORE MEALS AND HS SUBQ 08/08/17 11:30 09/07/17 11:29 08/08/17 13:14 Isosorbide Mononitrate (Imdur) 30 mg DAILY ORAL 08/08/17 09:00 09/07/17 08:59 08/09/17 10:52 Pantoprazole (Protonix) 40 mg DAILY ORAL 08/08/17 09:00 09/07/17 08:59 08/09/17 10:39 Polyethylene Glycol (Miralax) 17 gm BEDTIME ORAL 08/08/17 21:00 09/07/17 20:59 08/08/17 22:12 Pregabalin (Lyrica) 50 mg Q12HR ORAL 08/08/17 09:00 09/07/17 08:59 08/09/17 10:52 Promethazine HCl/ Codeine (Phenergan with Codeine) 5 ml Q4H PRN ORAL For Cough 08/08/17 15:15 09/07/17 15:14 08/09/17 04:20 Quetiapine Fumarate (SEROquel) 12.5 mg HSPRN PRN ORAL Agitation 08/08/17 12:30 09/07/17 12:29 Simethicone (Mylicon) 80 mg Q6H PRN ORAL Abdominal cramps 08/08/17 07:00 09/07/17 06:59 Sucralfate (Carafate) 1 gm FOUR TIMES A DAY ORAL 08/08/17 09:00 09/07/17 08:59 08/09/17 10:39 GI: Plan Problems: (1) Anemia (2) EF 25% (3) Obesity (4) Intractable abdominal pain (5) Iron deficiency anemia Plan hepatomegaly with fatty infiltration. s/p normal EGD in 2016/normal colonoscopy in 2014, see report. iron deficiency, venofer EF - 20% chronic abdominal pain anemia work up reviewed >> iron deficiency symptomatic treatment pain mgmt prn transfusion bowel regime ppi dc Carafate simethicone prn pt on plavix repeat colonoscopy [address] Trinidad. Thank you for this patient referral, we will follow. BIN TRINIDAD 08/09/17 1329: History of Present Illness Present Illness Home Meds Active Scripts Sucralfate (CARAFATE) 1 Gm/10 Ml Oral.susp, 1 GM ORAL FOUR TIMES A DAY for 14 Days, ML Prov:Brendan Wright MD 12/23/16 Carvedilol (Coreg) 6.25 Mg Tablet, 6.25 MG ORAL EVERY 12 HOURS for 30 Days, TAB Prov:JOVANA AGUILAR 12/21/16 Insulin Aspart (Novolog Flexpen) 100 Units/Ml Pen, 0 UNITS SUBQ BEFORE MEALS AND HS, #1 EA Prov:Suzie Jin SUPERVISORY TRAINING SPECIALIST 07/27/15 Reported Medications Polyethylene Glycol 3350* (POLYETHYLENE GLYCOL 3350*) 17 Gm Powd.pack, 17 GM ORAL DAILY, PACKET 12/18/16 Furosemide* (LASIX*) 20 Mg Tablet, 20 MG ORAL DAILY, TAB 12/18/16 Spironolactone* (ALDACTONE*) 25 Mg Tablet, 25 MG ORAL DAILY, TAB 12/18/16 Acetaminophen* (TYLENOL EXTRA STRENGTH*) 500 Mg Tablet, 500 MG ORAL Q6H Y for Mild Pain/Temp > 100.5, TAB 0 Refills 10/11/16 Simethicone (ND-ACID) 80 Mg Tab.chew, 80 MG PO, TAB 10/11/16 Clopidogrel* (CLOPIDOGREL*) 75 Mg Tablet, 75 MG ORAL DAILY, TAB 10/11/16 Insulin Glargine (LANTUS) 100 Unit/1 Ml Insuln.pen, 0 SUBQ BEDTIME, #1 EA 0 Refills 03/19/16 Aspirin Ec* (ASPIRIN EC*) 81 Mg Tablet.dr, 81 MG ORAL DAILY, TAB 02/28/16 Pregabalin (Lyrica) 50 Mg Capsule, 50 MG ORAL BID, CAP 02/28/16 Loratadine (LORATADINE) 10 Mg Tab.rapdis, 10 MG PO DAILY, TAB 02/28/16 Esomeprazole Magnesium (NEXIUM) 40 Mg Capsule.dr, 40 MG ORAL DAILY, CAP 02/28/16 Isosorbide Dinitrate* (ISORDIL*) 30 Mg Tablet, 30 MG ORAL DAILY, TAB 0 Refills 02/28/16 Atorvastatin Calcium* (ATORVASTATIN CALCIUM*) 20 Mg Tablet, 40 MG ORAL BEDTIME, TAB 11/06/15 Allergies: Coded Allergies: No Known Allergies (Unverified , 12/18/16) GI: Plan Plan The patient was seen and examined at bedside and all new and available data was reviewed in the patients chart. I agree with the above findings, impression and plan. (Patient seen earlier today. Signature stamp does not reflect patient encounter time.). - MD Lula Cole,[facility] Cosme N.Barbara Aug 09, 2017 12:52 BIN TRINIDAD Aug 09, 2017 13:29
[2017-08-09] MEDS: Acetaminophen 500mg (ES) tab ORAL PRN (12:55)
[2017-08-09] MEDS: Docusate 100mg cap ORAL SCH ×2 (13:30→17:48)
--- NOTE | 2017-08-09 13:51 | Diagnostic Imaging Report ---
Indication: Abnormal renal function tests, stage I chronic renal failure Technique: Grayscale and duplex images of the kidneys, retroperitoneum, and bladder Comparison: Abdomen ultrasound 12/22/2016 Findings: Right kidney measures 10 cm in length. Left kidney measures 11 cm in length. Both kidneys demonstrate normal echogenicity, no hydronephrosis. No focal abnormality. Bladder volume is 490. Patient did not void so no postvoid bladder volume available. Impression: Negative for hydronephrosis Distended bladder
--- NOTE | 2017-08-09 13:54 | Pulmonology Progress Note ---
Assessment/Plan Assessment/Plan ASSESSMENT PNA COPD CM CVA with RS hemiplegia Dysphagia AICD mild pulmonary HTN severe MR FAB anemia encephalopathy DM obesity PLAN OF CARE tele O2 HHN prn fup with CXR empiric abx, sputum cx if able ID follows influenza screen test negative fup with CXR a/tussive prn VSS pending ECHO with EF 30-35% and RVSP of 46 c/w mild pulmonary HTN, global LV hypokinesis , severe MR cardio follows medical management of SHF per cardio monitor cardiorenal parameters, volumes diuresis BS management with SS of insulin, renal US monitor renal parameters, correct lytes as needed, avoid nephrotoxic monitor counts, anemia w/up noted psych follows, psych medication as per psych recs DVT GI prophylaxis Bowel regimen case discussed and evaluated by supervising physician Subjective Allergies: Coded Allergies: No Known Allergies (Unverified , 12/18/16) Subjective denies chest pain, + occas SOB on O2 via NC pulse ox stable no wheezing, intermittent predominantly dry cough, no hemoptysis Objective Last 24 Hour Vital Signs Date Time Temp Pulse Resp B/P (MAP) Pulse Ox O2 Delivery O2 Flow Rate FiO2 08/09/17 13:04 90 125/58 08/09/17 12:00 97.9 87 20 100/53 100 Nasal Cannula 4.0 97.9 08/09/17 10:52 116/67 08/09/17 10:52 92 116/67 08/09/17 10:51 116/08/09/17 10:04 85 20 100 Nasal Cannula 2.0 08/09/17 09:56 92 20 98 Nasal Cannula 2.0 28 08/09/17 08:00 97.2 75 20 97/53 100 Nasal Cannula 4.0 97.2 08/09/17 06:53 Nasal Cannula 3.0 32 08/09/17 06:53 98 Nasal Cannula 3.0 32 08/09/17 06:52 76 20 Nasal Cannula 3.0 32 08/09/17 04:00 97.0 82 24 125/89 99 Nasal Cannula 4.0 97.0 08/09/17 04:00 70 08/09/17 01:37 98 Nasal Cannula 2.0 28 08/09/17 01:37 Nasal Cannula 2.0 28 08/09/17 01:35 76 20 100 Nasal Cannula 2.0 28 08/09/17 01:34 72 20 99 Nasal Cannula 2.0 28 08/09/17 00:00 96.4 74 20 93/45 99 Nasal Cannula 4.0 96.4 08/09/17 00:00 69 08/08/17 21:00 68 94/57 08/08/17 20:00 97.5 68 20 94/57 100 Nasal Cannula 4.0 97.5 08/08/17 20:00 67 08/08/17 18:00 99/52 08/08/17 16:00 66 08/08/17 16:00 97.1 66 18 110/48 97 Nasal Cannula 4.0 97.1 Intake and Output 08/08/17 08/09/17 19:00 07:00 Intake Total 550 ml 150 ml Balance 550 ml 150 ml Intake Oral 550 ml 50 ml IV Total 100 ml # Voids 3 General Appearance: no acute distress HEENT: normocephalic, atraumatic, anicteric Respiratory/Chest: lungs clear - with moderate air exchange , no respiratory distress Cardiovascular: normal rate - V pacibng on tele Abdomen: normal bowel sounds, soft, non tender - obese Extremities: other - trace edema BLE 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: alert, responsive, other - R side hemiplegia Microbiology Date/Time Source Procedure Growth Status 08/08/17 20:00 Nasal Nares Influenza Types A,B Antigen (CANDICE) - Final Complete Laboratory Tests 08/09/17 07:00: Urine Eosinophils None seen, Urine Random Sodium 51, Urine Potassium Timed 14 08/09/17 08:00: White Blood Count 8.8, Red Blood Count 3.60L, Hemoglobin 9.9L, Hematocrit 30.6L , Mean Corpuscular Volume 85, Mean Corpuscular Hemoglobin 27.4, Mean Corpuscular Hemoglobin Concent 32.3, Red Cell Distribution Width 14.7, Platelet Count 195, Mean Platelet Volume 9.7, Neutrophils (%) (Auto) 66.9, Lymphocytes (% ) (Auto) 15.8L, Monocytes (%) (Auto) 10.1H, Eosinophils (%) (Auto) 6.3H, Basophils (%) (Auto) 0.8, Differential Total Cells Counted 100, Neutrophils % ( Manual) 65, Lymphocytes % (Manual) 16L, Monocytes % (Manual) 10, Eosinophils % ( Manual) 8H, Basophils % (Manual) 1, Band Neutrophils 0, Platelet Estimate Adequate, Platelet Morphology Normal, Hypochromasia 1+, Anisocytosis 1+, Erythrocyte Sedimentation Rate 52H, Reticulocyte Count 1.9, Prothrombin Time 10.6, Prothromb Time International Ratio 1.0, Activated Partial Thromboplast Time 29, Sodium Level 140, Potassium Level 4.4, Chloride Level 105, Carbon Dioxide Level 28, Anion Gap 7, Blood Urea Nitrogen 35H, Creatinine 2.0H, Estimat Glomerular Filtration Rate 24.6, Glucose Level 89, Calcium Level 8.7, Iron Level 24L, Total Iron Binding Capacity 284, Percent Iron Saturation 8L, Unsaturated Iron Binding 260, Lactate Dehydrogenase 202, Troponin I 0.018, Pro-B -Type Natriuretic Peptide 2641H, Vitamin B12 Level 690, Folate 10.9, Digoxin Level < 0.2L Current Medications Medications (Trade) Dose Ordered Sig/[place] Route PRN Reason Start Time Stop Time Status Last Admin Dose Admin Acetaminophen (Tylenol) 500 mg Q4H PRN ORAL Mild Pain/Temp > 100.5 08/08/17 07:00 09/07/17 06:59 08/09/17 12:55 Albuterol/ Ipratropium (Albuterol/ Ipratropium) 3 ml Q4H PRN HHN Shortness of Breath 08/08/17 16:30 08/13/17 16:29 08/09/17 09:55 Aspirin (Ecotrin) 81 mg DAILY ORAL 08/08/17 09:00 09/07/17 08:59 08/09/17 10:39 Atorvastatin Calcium (Lipitor) 40 mg BEDTIME ORAL 08/08/17 21:00 09/07/17 20:59 08/08/17 22:12 Azithromycin (Zithromax) 250 mg DAILY ORAL 08/08/17 09:00 08/15/17 08:59 08/09/17 10:52 Carvedilol (Coreg) 6.25 mg EVERY 12 HOURS ORAL 08/08/17 09:00 09/07/17 08:59 08/09/17 10:52 Ceftriaxone Sodium 1 gm/ Sodium Chloride 55 ml @ 110 mls/hr Q24H IVPB 08/08/17 10:00 08/15/17 09:59 08/09/17 10:40 Clopidogrel Bisulfate (Plavix) 75 mg DAILY ORAL 08/08/17 09:00 09/07/17 08:59 08/09/17 10:40 Dextrose (Dextrose 50%) STAT PRN IV Hypoglycemia 08/08/17 07:00 09/07/17 06:59 Docusate Sodium (Colace) 100 mg THREE TIMES A DAY ORAL 08/09/17 13:30 09/08/17 13:29 Fexofenadine HCl (Rebecca) 60 mg TWICE A DAY ORAL 08/08/17 10:00 09/07/17 09:59 08/09/17 10:39 Furosemide (Lasix) 20 mg EVERY 12 HOURS IV 08/08/17 21:00 09/07/17 20:59 08/09/17 10:39 Hydralazine HCl (Apresoline) 10 mg BID ORAL 08/08/17 18:00 09/07/17 17:59 08/09/17 10:51 Insulin Aspart (NovoLOG) BEFORE MEALS AND HS SUBQ 08/08/17 11:30 09/07/17 11:29 08/08/17 13:14 Isosorbide Mononitrate (Imdur) 30 mg DAILY ORAL 08/08/17 09:00 09/07/17 08:59 08/09/17 10:52 Pantoprazole (Protonix) 40 mg DAILY ORAL 08/08/17 09:00 09/07/17 08:59 08/09/17 10:39 Polyethylene Glycol (Miralax) 17 gm BEDTIME ORAL 08/08/17 21:00 09/07/17 20:59 08/08/17 22:12 Pregabalin (Lyrica) 50 mg Q12HR ORAL 08/08/17 09:00 09/07/17 08:59 08/09/17 10:52 Promethazine HCl/ Codeine (Phenergan with Codeine) 5 ml Q4H PRN ORAL For Cough 08/08/17 15:15 09/07/17 15:14 08/09/17 12:55 Quetiapine Fumarate (SEROquel) 12.5 mg HSPRN PRN ORAL Agitation 08/08/17 12:30 09/07/17 12:29 Simethicone (Mylicon) 80 mg Q6H PRN ORAL Abdominal cramps 08/08/17 07:00 09/07/17 06:59 Carmona (Vanchtein),Sari SANTOS Aug 09, 2017 13:54
--- NOTE | 2017-08-09 16:26 | Cardiology Report ---
APPROVED REPORT EXAM: Two-dimensional and M-mode echocardiogram with Doppler and color Doppler. INDICATION Congestive Heart Failure M-Mode DIMENSIONS IVSd0.9 (0.7-1.1cm)Left Atrium (MM)5.0 (1.6-4.0cm) LVDd6.4 (3.5-5.6cm)Aortic Root2.7 (2.0-3.7cm) PWd0.9 (0.7-1.1cm)Aortic Cusp Exc.1.5 (1.5-2.0cm) LVDs5.2 (2.5-4.0cm) PWs0.8 cm Mild left ventricularenlargement. Global left ventricular hypokinesis. Mid septal akinesis and basal posterior. Left ventricular ejection fraction estimated to be 25-30%. No evidence of left ventricular hypertrophy. No evidence of pericardial or pleural effusion. Right cardiac chamber sizes are within normal limits. Moderate left atrial enlargement by 2D. Focal aortic valve sclerosis with adequate cusp excursion. Thickened mitral valve leaflets with normal excursion. Mild mitral annulus and aortic root calcification. Pulmonic valve not well visualized. Normal tricuspid valve structure. IVC is normal in size non-collapsible with respiration indicate increased RA pressure. Probable pacemaker wire present in the right side chambers. A color flow and spectral Doppler study was performed and revealed: Mild aortic regurgitation. Severe mitral regurgitation. Mitral inflow velocities indicates possible pseudo normalization pattern implying significant left ventricular diastolic dysfunction. Mild tricuspid regurgitation. Tricuspid systolic velocities suggests peak right ventricular systolic pressure of 46mmHg Consistent with mild pulmonary hypertension.
--- NOTE | 2017-08-09 17:24 | Cardiac Electrophysiology PN ---
Assessment/Plan Assessment/Plan 1. Status post biventricular defibrillator implantation with Biotronik device. Interrogate the device and showed Nl fx. 2. CHF exacerbation with BNP >2600 . Decrease Coreg to 3.125, Isordil 10 bid, Lasix 20 iv bid and hydralazine 10 bid. In view of renal failure, we will avoid JAROCHO inhibitors. 3. Hypertension. Continue current heart failure therapy. 4. Renal failure with a BUN of 34 and creatinine of 2.1. Avoid Aldactone, JAROCHO inhibitor, and angiotensin receptor dayna at this time. 5. PNA on Abx per Dr. Boo WALLACE RN Subjective Subjective ICD was interrogated that showed Nl Fx. No chest pain. Objective Last 24 Hour Vital Signs Date Time Temp Pulse Resp B/P (MAP) Pulse Ox O2 Delivery O2 Flow Rate FiO2 08/09/17 13:04 90 125/58 08/09/17 12:00 97.9 87 20 100/53 100 Nasal Cannula 4.0 97.9 08/09/17 10:52 116/67 08/09/17 10:52 92 116/67 08/09/17 10:51 116/67 08/09/17 10:04 85 20 100 Nasal Cannula 2.0 08/09/17 09:56 92 20 98 Nasal Cannula 2.0 08/09/17 08:00 97.2 75 20 97/53 100 Nasal Cannula 4.0 97.2 08/09/17 06:53 Nasal Cannula 3.0 32 08/09/17 06:53 98 Nasal Cannula 3.0 32 08/09/17 06:52 76 20 Nasal Cannula 3.0 32 08/09/17 04:00 97.0 82 24 125/89 99 Nasal Cannula 4.0 97.0 08/09/17 04:00 70 08/09/17 01:37 98 Nasal Cannula 2.0 08/09/17 01:37 Nasal Cannula 2.0 28 08/09/17 01:35 76 20 100 Nasal Cannula 2.0 28 08/09/17 01:34 72 20 99 Nasal Cannula 2.0 28 08/09/17 00:00 96.4 74 20 93/45 99 Nasal Cannula 4.0 96.4 08/09/17 00:00 69 08/08/17 21:00 68 94/57 08/08/17 20:00 97.5 68 20 94/57 100 Nasal Cannula 4.0 97.5 08/08/17 20:00 67 08/08/17 18:00 99/52 Intake and Output 08/08/17 08/09/17 19:00 07:00 Intake Total 550 ml 150 ml Balance 550 ml 150 ml Intake Oral 550 ml 50 ml IV Total 100 ml # Voids 3 Laboratory Tests Test 08/09/17 07:00 08/09/17 08:00 Urine Eosinophils None seen Urine Random Sodium 51 MEQ/L (20-110) Urine Potassium Timed 14 mmol/L (12-62) White Blood Count 8.8 K/UL (4.8-10.8) Red Blood Count 3.60 M/UL (4.20-5.40) L Hemoglobin 9.9 G/DL (12.0-16.0) L Hematocrit 30.6 % (37.0-47.0) L Mean Corpuscular Volume 85 FL (80-99) Mean Corpuscular Hemoglobin 27.4 PG (27.0-31.0) Mean Corpuscular Hemoglobin Concent 32.3 G/DL (32.0-36.0) Red Cell Distribution Width 14.7 % (11.6-14.8) Platelet Count 195 K/UL (150-450) Mean Platelet Volume 9.7 FL (6.5-10.1) Neutrophils (%) (Auto) 66.9 % (45.0-75.0) Lymphocytes (%) (Auto) 15.8 % (20.0-45.0) L Monocytes (%) (Auto) 10.1 % (1.0-10.0) H Eosinophils (%) (Auto) 6.3 % (0.0-3.0) H Basophils (%) (Auto) 0.8 % (0.0-2.0) Differential Total Cells Counted 100 Neutrophils % (Manual) 65 % (45-75) Lymphocytes % (Manual) 16 % (20-45) L Monocytes % (Manual) 10 % (1-10) Eosinophils % (Manual) 8 % (0-3) H Basophils % (Manual) 1 % (0-2) Band Neutrophils 0 % (0-8) Platelet Estimate Adequate Platelet Morphology Normal Hypochromasia 1+ Anisocytosis 1+ Erythrocyte Sedimentation Rate 52 MM/HR (0-30) H Reticulocyte Count 1.9 % (0.0-2.0) Prothrombin Time 10.6 SEC (9.30-11.50) Prothromb Time International Ratio 1.0 (0.9-1.1) Activated Partial Thromboplast Time 29 SEC (23-33) Sodium Level 140 MMOL/L (136-145) Potassium Level 4.4 MMOL/L (3.5-5.1) Chloride Level 105 MMOL/L (98-107) Carbon Dioxide Level 28 MMOL/L (21-32) Anion Gap 7 mmol/L (5-15) Blood Urea Nitrogen 35 mg/dL (7-18) H Creatinine 2.0 MG/DL (0.55-1.30) H Estimat Glomerular Filtration Rate 24.6 mL/min (>60) Glucose Level 89 MG/DL (74-106) Calcium Level 8.7 MG/DL (8.5-10.1) Iron Level 24 ug/dL (50-175) L Total Iron Binding Capacity 284 ug/dL (250-450) Percent Iron Saturation 8 % (15-50) L Unsaturated Iron Binding 260 ug/dL (112-346) Ferritin 47 NG/ML (8-388) Lactate Dehydrogenase 202 U/L (81-234) Troponin I 0.018 ng/mL (0.000-0.056) Pro-B-Type Natriuretic Peptide 2641 pg/mL (0-125) H Vitamin B12 Level 690 PG/ML (193-986) Folate 10.9 NG/ML (8.6-58.9) Digoxin Level < 0.2 NG/ML (0.9-2.0) L Microbiology Date/Time Source Procedure Growth Status 08/08/17 20:00 Nasal Nares Influenza Types A,B Antigen (CANDICE) - Final Complete Objective HEAD AND NECK: Shows no JVD. LUNGS: Clear. CARDIOVASCULAR: Shows regular S1 and S2 with no gallop or murmur. The ICD in the left subclavian intact. ABDOMEN: Soft. EXTREMITIES: A 1+ pitting edema. DELORES CHAPARRO Aug 09, 2017 17:24
[2017-08-09] MEDS ORDERED: Tubing IV Secondary IV ONE (17:41)
[2017-08-09] MEDS ORDERED: NS 275ml ONE (17:41)
--- NOTE | 2017-08-09 20:31 | Consultation ---
DATE OF CONSULTATION: 08/09/2017 INFECTIOUS DISEASE CONSULTATION CONSULTING PHYSICIAN: Gumaro Haddad M.D. REQUESTING PHYSICIAN: Ash Li M.D. and Ida Nolen M.D. REASON FOR CONSULTATION: Evaluation of the patient for pneumonia, antibiotic management. HISTORY OF PRESENT ILLNESS: The patient is a 72-year-old, Khmer speaking female with multiple medical problems as listed below, who was admitted to this medical center for cough, shortness of breath, and sputum production. The patient has been admitted with impression of pneumonia. An Infectious Disease consultation has been requested for further evaluation of the patient and antibiotic management. PAST MEDICAL HISTORY: 1. COPD. 2. CHF. 3. Cardiomyopathy. 4. Diabetes. 5. Hypertension. 6. CVA. 7. History of right hemiparesis. 8. History of cervical cancer, status post hysterectomy. 9. Iron-deficiency anemia. 10. History of AICD placement. 11. Diverticulosis. 12. History of hiatal hernia. 13. GERD/esophagitis. 14. Status post normal EGD and normal colonoscopy in October of 2016. MEDICATIONS: The patient is on Rocephin and Zithromax day #2 and Flagyl day #2. ALLERGIES: No known drug allergies. SOCIAL HISTORY: The patient lives with the family. No history of alcohol, drug abuse, or smoking. REVIEW OF SYSTEMS: A 10-point review was done, and except what is mentioned above, has been negative. PHYSICAL EXAMINATION: VITAL SIGNS: Temperature 97 degrees, pulse 86, respiratory rate 18, and blood pressure 116/67. HEENT: No pale conjunctivae. No icterus. NECK: No lymphadenopathy. CHEST: Coarse breathing sounds. Mild crackles at the bases of both lungs. HEART: S1 and S2. ABDOMEN: Soft, obese, nontender. The patient has mild epigastric tenderness. EXTREMITIES: No cyanosis at this time. NEUROLOGIC: Awake, alert. LABORATORY AND DIAGNOSTIC DATA: White blood cells 8, hemoglobin 9.9 and platelets 195. UA unremarkable. BUN 35 and creatinine 2. Influenza screening negative. Chest x-ray, moderate CHF. ASSESSMENT: The patient is a 72-year-old female with, 1. Community-acquired pneumonia. 2. Normal white blood cells. 3. Afebrile. 4. Influenza A/B negative. 5. Congestive heart failure exacerbation. PLAN: 1. We will continue the patient on Zithromax and Rocephin day #2/5, discontinue Flagyl day #2. 2. Monitor CBC. 3. Monitor BMP. 4. Monitor cultures (sputum). 5. Monitor chest x-ray. 6. Based on the patient's course and laboratories, we will do further recommendation. Thank you, Dr. Li and Dr. Nolen, for allowing me to participate in the care of this patient. I will follow the patient with you during this hospitalization. Gumaro Haddad M.D. DR: NU JOB#: [id number] CC:
[2017-08-09] MEDS ORDERED: Miralax 17gm pkt ORAL SCH (21:00)
[2017-08-09] MEDS: Atorvastatin 20mg tab ORAL SCH (21:09)
[2017-08-09] MEDS: Miralax 17gm pkt ORAL SCH (21:09)
[2017-08-10] VITALS: BP 130/52
[2017-08-10 04:00] VITALS: BP 121/60
--- NOTE | 2017-08-10 05:31 | Consultation ---
DATE OF CONSULTATION: 08/09/2017 NOTE: POOR AUDIO HEMATOLOGY/ONCOLOGY CONSULTATION CONSULTING PHYSICIAN: Daljit Miles M.D. REFERRING PHYSICIAN: Viviane Núñez M.D. REASON FOR CONSULTATION: Evaluation of anemia. IDENTIFICATION DATA: Dear Dr. Núñez, The patient is a pleasant 72-year-old female with past medical history significant for shortness of breath, initially presented to [facility] pneumonia insurance ____ purposes, admitted with shortness of breath, pneumonia. The patient has a history of iron-deficiency anemia, noted to have also history of cervical cancer, status post total abdominal hysterectomy. Hematology Service was consulted for further evaluation and treatment. PAST MEDICAL HISTORY: COPD, CHF, cardiomyopathy, diabetes mellitus type 2, hypertension, CVA, hemiparesis, cervical cancer, status post KENA, and iron-deficiency anemia. PAST SURGICAL HISTORY: Total abdominal hysterectomy, appendectomy, and AICD. MEDICATIONS: Aspirin, Lipitor, Coreg, Plavix, Nexium, Lasix, . ALLERGIES: No known drug allergies. SOCIAL HISTORY: No alcohol, tobacco, or illicit drug use. REVIEW OF SYSTEMS: CONSTITUTIONAL: No fever, chills, or night sweats. SKIN: No rashes, bumps, or itching. HEENT: No headache, hearing or vision changes. BREASTS: No lumps, pain, or discharge. PULMONARY: No cough, sputum, or shortness of breath. GASTROINTESTINAL: No nausea, vomiting, or diarrhea. GENITOURINARY: No dysuria, frequency, or urgency. MUSCULOSKELETAL: No joint swelling, muscle pain, or trauma. PHYSICAL EXAMINATION: VITAL SIGNS: Reviewed. GENERAL: No distress. PULMONARY: Decreased breath sounds. CARDIOVASCULAR: Regular rate. No S3 or S4. ABDOMEN: Soft, nontender, and nondistended. EXTREMITIES: No cyanosis, swelling, or edema. LABORATORY AND DIAGNOSTIC DATA: WBC of 8.8, hemoglobin 9.9, hematocrit 31, and platelets 104,000. BUN 35 and creatinine 2. Uric acid 8.2. INR . ASSESSMENT AND RECOMMENDATIONS: 1. Anemia due to underlying chronic disease. Hemoglobin goal is above 7. Continue to closely monitor. 2. Anemia of iron deficiency. Currently, does not appear severe iron deficiency. Continue to closely monitor. Hemoglobin goal is above 7 and anemia workup has been reviewed. Reticulocyte count 1.9 ferritin to be ordered consider iron treatment. 3. Cervical cancer, status post total abdominal hysterectomy recurrence. 4. Pneumonia. She is on broad-spectrum antibiotics as per Pulmonary team. 5. Pulmonary hypertension. 6. Obesity. 7. Diabetes mellitus. 8. Encephalopathy. I appreciate the consultation. Daljit Miles M.D. DR: Alissa JOB#: [id number] CC:
[2017-08-10] MEDS: NovoLOG Insulin Flexpen SUBQ SCH ×4 (06:10→21:34)
[2017-08-10 08:00] VITALS: BP 113/53
[2017-08-10 08:35] LABS: BASOPHILS % (AUTO) 0.6 % (0.0-2.0); HEMATOCRIT 30.8 % (37.0-47.0); HEMOGLOBIN 9.8 G/DL (12.0-16.0); LYMPHOCYTES % (AUTO) 18.1 % (20.0-45.0); MEAN CORPUSCULAR VOLUME 85 FL (80-99); MONOCYTES % (AUTO) 11.6 % (1.0-10.0); NEUTROPHILS % (AUTO) 63.7 % (45.0-75.0); PLATELET COUNT 188 K/UL (150-450); RED BLOOD COUNT 3.62 M/UL (4.20-5.40); WHITE BLOOD COUNT 8.5 K/UL (4.8-10.8)
[2017-08-10] MEDS: HydrALAZINE 10mg Tab ORAL SCH ×2 (09:00→17:35)
[2017-08-10] MEDS: Imdur 30mg tab ORAL SCH (09:00)
[2017-08-10] MEDS: Lyrica 50mg cap ORAL SCH ×2 (09:12→21:33)
[2017-08-10] MEDS: Aspirin EC 81mg tab ORAL SCH (09:12)
[2017-08-10] MEDS: Docusate 100mg cap ORAL SCH ×3 (09:13→17:33)
[2017-08-10] MEDS: Azithromycin 250mg tab ORAL SCH (09:15)
[2017-08-10 09:28] LABS: ANION GAP 4 mmol/L (5-15); BLOOD UREA NITROGEN 38 mg/dL (7-18); CALCIUM 8.9 MG/DL (8.5-10.1); CARBON DIOXIDE 31 MMOL/L (21-32); CHLORIDE 104 MMOL/L (98-107); CREATININE 1.8 MG/DL (0.55-1.30); POTASSIUM 4.4 MMOL/L (3.5-5.1); SODIUM 139 MMOL/L (136-145)
[2017-08-10] MEDS: cefTRIAXone 1 GM in NS 55 ML IVPB SCH (09:29)
--- NOTE | 2017-08-10 11:20 | GI Progress Note ---
Assessment/Plan Problems: (1) Iron deficiency anemia ICD Codes: D50.9 - Iron deficiency anemia, unspecified SNOMED: 58876321 (2) Anemia ICD Codes: D64.9 - Anemia, unspecified SNOMED: 838007926 (3) EF 25% (4) Obesity ICD Codes: E66.9 - Obesity, unspecified SNOMED: 989905381 Status: progressing Status Narrative Discussed with Dr. Leal. Assessment/Plan hepatomegaly with fatty infiltration. s/p normal EGD in 2017/normal colonoscopy in 2014, see report. EF - 20% chronic abdominal pain anemia work up reviewed >> iron deficiency >> venofer ST evaluation reviewed >> LIQUIFIED PUREED SOUP DIET LIKE THIN AND NECTAR THICK CONSISTENCIES (WARM BROTH OR CREAMY SOUPS) WITH POSTED ASPIRATION PRECAUTIONS. symptomatic treatment pain mgmt prn transfusion bowel regime ppi dc Carafate simethicone prn pt on plavix repeat colonoscopy 2019 The patient was seen and examined at bedside and all new and available data was reviewed in the patients chart. I agree with the above findings, impression and plan. (Patient seen earlier today. Signature stamp does not reflect patient encounter time.). - Del Leal MD Subjective Subjective abdominal discomfort painful swallowing Objective Last 24 Hour Vital Signs Date Time Temp Pulse Resp B/P (MAP) Pulse Ox O2 Delivery O2 Flow Rate FiO2 08/10/17 09:00 113/53 08/10/17 09:00 87 113/53 08/10/17 09:00 113/53 08/10/17 08:00 98.8 87 20 113/53 100 Nasal Cannula 4.0 98.8 08/10/17 07:10 Nasal Cannula 2.0 28 08/10/17 07:10 99 Nasal Cannula 2.0 28 08/10/17 04:00 86 08/10/17 04:00 96.9 80 20 121/60 96 Nasal Cannula 4.0 96.9 08/10/17 00:00 89 08/10/17 00:00 96.5 89 22 130/52 95 Nasal Cannula 4.0 96.5 08/09/17 22:35 83 129/48 08/09/17 20:19 96 Nasal Cannula 2.0 28 08/09/17 20:00 83 08/09/17 20:00 99.5 84 19 129/48 100 Nasal Cannula 4.0 99.5 08/09/17 19:30 Nasal Cannula 2.0 28 08/09/17 19:30 82 20 Nasal Cannula 2.0 28 08/09/17 17:55 99/52 08/09/17 16:00 81 08/09/17 16:00 97.9 75 20 100/48 100 Nasal Cannula 4.0 97.9 08/09/17 13:04 90 125/58 08/09/17 12:00 87 08/09/17 12:00 97.9 87 20 100/53 100 Nasal Cannula 4.0 97.9 Intake and Output 08/09/17 08/10/17 19:00 07:00 Intake Total 340 ml Output Total 400 ml Balance 340 ml -400 ml Intake Oral 240 ml IV Total 100 ml Output Urine Total 400 ml # Voids 3 Laboratory Tests Test 08/10/17 08:15 White Blood Count 8.5 K/UL (4.8-10.8) Red Blood Count 3.62 M/UL (4.20-5.40) L Hemoglobin 9.8 G/DL (12.0-16.0) L Hematocrit 30.8 % (37.0-47.0) L Mean Corpuscular Volume 85 FL (80-99) Mean Corpuscular Hemoglobin 27.2 PG (27.0-31.0) Mean Corpuscular Hemoglobin Concent 32.0 G/DL (32.0-36.0) Red Cell Distribution Width 15.0 % (11.6-14.8) H Platelet Count 188 K/UL (150-450) Mean Platelet Volume 9.4 FL (6.5-10.1) Neutrophils (%) (Auto) 63.7 % (45.0-75.0) Lymphocytes (%) (Auto) 18.1 % (20.0-45.0) L Monocytes (%) (Auto) 11.6 % (1.0-10.0) H Eosinophils (%) (Auto) 6.0 % (0.0-3.0) H Basophils (%) (Auto) 0.6 % (0.0-2.0) Sodium Level 139 MMOL/L (136-145) Potassium Level 4.4 MMOL/L (3.5-5.1) Chloride Level 104 MMOL/L (98-107) Carbon Dioxide Level 31 MMOL/L (21-32) Anion Gap 4 mmol/L (5-15) L Blood Urea Nitrogen 38 mg/dL (7-18) H Creatinine 1.8 MG/DL (0.55-1.30) H Estimat Glomerular Filtration Rate 27.8 mL/min (>60) Glucose Level 139 MG/DL (74-106) H Calcium Level 8.9 MG/DL (8.5-10.1) Troponin I 0.023 ng/mL (0.000-0.056) Pro-B-Type Natriuretic Peptide 2347 pg/mL (0-125) H Height (Feet): 5 Height (Inches): 3.00 Weight (Pounds): 192 General Appearance: WD/WN, no apparent distress, alert Cardiovascular: normal rate Respiratory/Chest: normal breath sounds, no respiratory distress Abdominal Exam: normal bowel sounds, non tender, soft Extremities: normal range of motion, non-tender Rizwana Cotton N.P. Aug 10, 2017 11:20 BIN LEAL Aug 14, 2017 10:06
[2017-08-10 12:00] VITALS: BP 124/68
--- NOTE | 2017-08-10 12:06 | Infectious Diseases Prog Note ---
Assessment/Plan Assessment/Plan ASSESSMENT: The patient is a 72-year-old female with, Community-acquired pneumonia. Chest x-ray, moderate CHF. Normal white blood cells. Afebrile. Influenza A/B negative. COPD CHF EF : 25-30%. Cardiomyopathy Diabetes Hypertension CVA History of right hemiparesis History of cervical cancer, status post hysterectomy. Iron-deficiency anemia. History of AICD placement. Diverticulosis. History of hiatal hernia. GERD/esophagitis. Status post normal EGD and normal colonoscopy in October of 2016. PLAN: cont pt on Zithromax and Rocephin day # 3 /5 08/09b SP Flagyl day #2 Monitor CBC. Monitor BMP. Monitor cultures (sputum). Monitor chest x-ray. Subjective Allergies: Coded Allergies: No Known Allergies (Unverified , 12/18/16) Subjective Afebrile Objective Vital Signs Last 24 Hour Vital Signs Date Time Temp Pulse Resp B/P (MAP) Pulse Ox O2 Delivery O2 Flow Rate FiO2 08/10/17 09:00 113/53 08/10/17 09:00 87 113/53 08/10/17 09:00 113/53 08/10/17 08:00 98.8 87 20 113/53 100 Nasal Cannula 4.0 98.8 08/10/17 07:10 Nasal Cannula 2.0 28 08/10/17 07:10 99 Nasal Cannula 2.0 28 08/10/17 04:00 86 08/10/17 04:00 96.9 80 20 121/60 96 Nasal Cannula 4.0 96.9 08/10/17 00:00 89 08/10/17 00:00 96.5 89 22 130/52 95 Nasal Cannula 4.0 96.5 08/09/17 22:35 83 129/48 08/09/17 20:19 96 Nasal Cannula 2.0 28 08/09/17 20:00 83 08/09/17 20:00 99.5 84 19 129/48 100 Nasal Cannula 4.0 99.5 08/09/17 19:30 Nasal Cannula 2.0 28 08/09/17 19:30 82 20 Nasal Cannula 2.0 28 08/09/17 17:55 99/52 08/09/17 16:00 81 08/09/17 16:00 97.9 75 20 100/48 100 Nasal Cannula 4.0 97.9 08/09/17 13:04 90 125/58 08/09/17 12:00 87 08/09/17 12:00 97.9 87 20 100/53 100 Nasal Cannula 4.0 97.9 Height (Feet): 5 Height (Inches): 3.00 Weight (Pounds): 192 HEENT: anicteric Respiratory/Chest: no respiratory distress Cardiovascular: regular rhythm Abdomen: no organomegaly Microbiology Date/Time Source Procedure Growth Status 08/08/17 20:00 Nasal Nares Influenza Types A,B Antigen (CANDICE) - Final Complete Laboratory Tests Test 08/10/17 08:15 White Blood Count 8.5 K/UL (4.8-10.8) Red Blood Count 3.62 M/UL (4.20-5.40) L Hemoglobin 9.8 G/DL (12.0-16.0) L Hematocrit 30.8 % (37.0-47.0) L Mean Corpuscular Volume 85 FL (80-99) Mean Corpuscular Hemoglobin 27.2 PG (27.0-31.0) Mean Corpuscular Hemoglobin Concent 32.0 G/DL (32.0-36.0) Red Cell Distribution Width 15.0 % (11.6-14.8) H Platelet Count 188 K/UL (150-450) Mean Platelet Volume 9.4 FL (6.5-10.1) Neutrophils (%) (Auto) 63.7 % (45.0-75.0) Lymphocytes (%) (Auto) 18.1 % (20.0-45.0) L Monocytes (%) (Auto) 11.6 % (1.0-10.0) H Eosinophils (%) (Auto) 6.0 % (0.0-3.0) H Basophils (%) (Auto) 0.6 % (0.0-2.0) Sodium Level 139 MMOL/L (136-145) Potassium Level 4.4 MMOL/L (3.5-5.1) Chloride Level 104 MMOL/L (98-107) Carbon Dioxide Level 31 MMOL/L (21-32) Anion Gap 4 mmol/L (5-15) L Blood Urea Nitrogen 38 mg/dL (7-18) H Creatinine 1.8 MG/DL (0.55-1.30) H Estimat Glomerular Filtration Rate 27.8 mL/min (>60) Glucose Level 139 MG/DL (74-106) H Calcium Level 8.9 MG/DL (8.5-10.1) Troponin I 0.023 ng/mL (0.000-0.056) Pro-B-Type Natriuretic Peptide 2347 pg/mL (0-125) H Current Medications Medications (Trade) Dose Ordered Sig/[place] Route PRN Reason Start Time Stop Time Status Last Admin Dose Admin Acetaminophen (Tylenol) 500 mg Q4H PRN ORAL Mild Pain/Temp > 100.5 08/08/17 07:00 09/07/17 06:59 08/09/17 12:55 Albuterol/ Ipratropium (Albuterol/ Ipratropium) 3 ml Q4H PRN HHN Shortness of Breath 08/08/17 16:30 08/13/17 16:29 08/09/17 20:16 Aspirin (Ecotrin) 81 mg DAILY ORAL 08/08/17 09:00 09/07/17 08:59 08/10/17 09:12 Atorvastatin Calcium (Lipitor) 40 mg BEDTIME ORAL 08/08/17 21:00 09/07/17 20:59 08/09/17 21:09 Azithromycin (Zithromax) 250 mg DAILY ORAL 08/08/17 09:00 08/15/17 08:59 08/10/17 09:15 Carvedilol (Coreg) 3.125 mg EVERY 12 HOURS ORAL 08/09/17 22:00 09/08/17 21:59 08/09/17 22:35 Ceftriaxone Sodium 1 gm/ Sodium Chloride 55 ml @ 110 mls/hr Q24H IVPB 08/08/17 10:00 08/15/17 09:59 08/10/17 09:29 Clopidogrel Bisulfate (Plavix) 75 mg DAILY ORAL 08/08/17 09:00 09/07/17 08:59 08/10/17 09:12 Dextrose (Dextrose 50%) STAT PRN IV Hypoglycemia 08/08/17 07:00 09/07/17 06:59 Docusate Sodium (Colace) 100 mg THREE TIMES A DAY ORAL 08/09/17 13:30 09/08/17 13:29 08/10/17 09:13 Fexofenadine HCl (Rebecca) 60 mg TWICE A DAY ORAL 08/08/17 10:00 09/07/17 09:59 08/10/17 09:13 Furosemide (Lasix) 20 mg EVERY 12 HOURS IV 08/09/17 22:00 09/08/17 21:59 08/10/17 09:15 Hydralazine HCl (Apresoline) 10 mg BID ORAL 08/10/17 09:00 09/09/17 08:59 Insulin Aspart (NovoLOG) BEFORE MEALS AND HS SUBQ 08/08/17 11:30 09/07/17 11:29 08/09/17 21:14 Isosorbide Mononitrate (Imdur) 30 mg DAILY ORAL 08/08/17 09:00 09/07/17 08:59 08/09/17 10:52 Pantoprazole (Protonix) 40 mg DAILY ORAL 08/08/17 09:00 09/07/17 08:59 08/10/17 09:28 Polyethylene Glycol (Miralax) 17 gm BEDTIME ORAL 08/08/17 21:00 09/07/17 20:59 08/09/17 21:09 Pregabalin (Lyrica) 50 mg Q12HR ORAL 08/08/17 09:00 09/07/17 08:59 08/10/17 09:12 Promethazine HCl/ Codeine (Phenergan with Codeine) 5 ml Q4H PRN ORAL For Cough 08/08/17 15:15 09/07/17 15:14 08/09/17 17:52 Quetiapine Fumarate (SEROquel) 12.5 mg HSPRN PRN ORAL Agitation 08/08/17 12:30 09/07/17 12:29 Simethicone (Mylicon) 80 mg Q6H PRN ORAL Abdominal cramps 08/08/17 07:00 09/07/17 06:59 QUETA LENTZ M.D. Aug 10, 2017 12:06
[2017-08-10] MEDS ORDERED: Chloraseptic Spray 20mL Bottle ORAL PRN (14:00)
--- NOTE | 2017-08-10 14:00 | Pulmonology Progress Note ---
Assessment/Plan Problems: (1) Pneumonia (2) AICD (automatic cardioverter/defibrillator) present (3) COPD (chronic obstructive pulmonary disease) (4) EF 25% (5) Acute kidney injury (6) Obesity (7) Hemiplegia affecting right dominant side Assessment/Plan improving continue abx. check cultures titrate fio2 to sat of 92% med/surg if ok with cup setter lockstitch. Subjective ROS Limited/Unobtainable: No Constitutional: Reports: no symptoms HEENT: Repors: no symptoms Respiratory: Reports: no symptoms Allergies: Coded Allergies: No Known Allergies (Unverified , 12/18/16) Objective Last 24 Hour Vital Signs Date Time Temp Pulse Resp B/P (MAP) Pulse Ox O2 Delivery O2 Flow Rate FiO2 08/10/17 12:00 90 08/10/17 09:00 113/53 08/10/17 09:00 87 113/53 08/10/17 09:00 113/53 08/10/17 08:00 98.8 87 20 113/53 100 Nasal Cannula 4.0 98.8 08/10/17 08:00 84 08/10/17 07:10 Nasal Cannula 2.0 28 08/10/17 07:10 99 Nasal Cannula 2.0 28 08/10/17 04:00 86 08/10/17 04:00 96.9 80 20 121/60 96 Nasal Cannula 4.0 96.9 08/10/17 00:00 89 08/10/17 00:00 96.5 89 22 130/52 95 Nasal Cannula 4.0 96.5 08/09/17 22:35 83 129/48 08/09/17 20:19 96 Nasal Cannula 2.0 28 08/09/17 20:00 83 08/09/17 20:00 99.5 84 19 129/48 100 Nasal Cannula 4.0 99.5 08/09/17 19:30 Nasal Cannula 2.0 28 08/09/17 19:30 82 20 Nasal Cannula 2.0 28 08/09/17 17:55 99/52 08/09/17 16:00 81 08/09/17 16:00 97.9 75 20 100/48 100 Nasal Cannula 4.0 97.9 Intake and Output 08/09/17 08/10/17 19:00 07:00 Intake Total 340 ml Output Total 400 ml Balance 340 ml -400 ml Intake Oral 240 ml IV Total 100 ml Output Urine Total 400 ml # Voids 3 General Appearance: WD/WN HEENT: normocephalic, atraumatic Respiratory/Chest: chest wall non-tender, lungs clear, normal breath sounds Cardiovascular: normal peripheral pulses, normal rate Abdomen: normal bowel sounds, soft, non tender Genitourinary: normal external genitalia Extremities: no clubbing Skin: no ulcers 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: no motor/sensory deficits Microbiology Date/Time Source Procedure Growth Status 08/08/17 20:00 Nasal Nares Influenza Types A,B Antigen (CANDICE) - Final Complete Laboratory Tests 08/10/17 08:15: White Blood Count 8.5, Red Blood Count 3.62L, Hemoglobin 9.8L, Hematocrit 30.8L , Mean Corpuscular Volume 85, Mean Corpuscular Hemoglobin 27.2, Mean Corpuscular Hemoglobin Concent 32.0, Red Cell Distribution Width 15.0H, Platelet Count 188, Mean Platelet Volume 9.4, Neutrophils (%) (Auto) 63.7, Lymphocytes (%) (Auto) 18.1L, Monocytes (%) (Auto) 11.6H, Eosinophils (%) (Auto ) 6.0H, Basophils (%) (Auto) 0.6, Sodium Level 139, Potassium Level 4.4, Chloride Level 104, Carbon Dioxide Level 31, Anion Gap 4L, Blood Urea Nitrogen 38H, Creatinine 1.8H, Estimat Glomerular Filtration Rate 27.8, Glucose Level 139H, Calcium Level 8.9, Troponin I 0.023, Pro-B-Type Natriuretic Peptide 2347H Current Medications Medications (Trade) Dose Ordered Sig/[place] Route PRN Reason Start Time Stop Time Status Last Admin Dose Admin Acetaminophen (Tylenol) 500 mg Q4H PRN ORAL Mild Pain/Temp > 100.5 08/08/17 07:00 09/07/17 06:59 08/09/17 12:55 Albuterol/ Ipratropium (Albuterol/ Ipratropium) 3 ml Q4H PRN HHN Shortness of Breath 08/08/17 16:30 08/13/17 16:29 08/09/17 20:16 Aspirin (Ecotrin) 81 mg DAILY ORAL 08/08/17 09:00 09/07/17 08:59 08/10/17 09:12 Atorvastatin Calcium (Lipitor) 40 mg BEDTIME ORAL 08/08/17 21:00 09/07/17 20:59 08/09/17 21:09 Azithromycin (Zithromax) 250 mg DAILY ORAL 08/08/17 09:00 08/15/17 08:59 08/10/17 09:15 Carvedilol (Coreg) 3.125 mg EVERY 12 HOURS ORAL 08/09/17 22:00 09/08/17 21:59 08/09/17 22:35 Ceftriaxone Sodium 1 gm/ Sodium Chloride 55 ml @ 110 mls/hr Q24H IVPB 08/08/17 10:00 08/15/17 09:59 08/10/17 09:29 Clopidogrel Bisulfate (Plavix) 75 mg DAILY ORAL 08/08/17 09:00 09/07/17 08:59 08/10/17 09:12 Dextrose (Dextrose 50%) STAT PRN IV Hypoglycemia 08/08/17 07:00 09/07/17 06:59 Docusate Sodium (Colace) 100 mg THREE TIMES A DAY ORAL 08/09/17 13:30 09/08/17 13:29 08/10/17 13:01 Fexofenadine HCl (Rebecca) 60 mg TWICE A DAY ORAL 08/08/17 10:00 09/07/17 09:59 08/10/17 09:13 Furosemide (Lasix) 20 mg EVERY 12 HOURS IV 08/09/17 22:00 09/08/17 21:59 08/10/17 09:15 Hydralazine HCl (Apresoline) 10 mg BID ORAL 08/10/17 09:00 09/09/17 08:59 Insulin Aspart (NovoLOG) BEFORE MEALS AND HS SUBQ 08/08/17 11:30 09/07/17 11:29 08/10/17 13:01 Isosorbide Mononitrate (Imdur) 30 mg DAILY ORAL 08/08/17 09:00 09/07/17 08:59 08/09/17 10:52 Pantoprazole (Protonix) 40 mg DAILY ORAL 08/08/17 09:00 09/07/17 08:59 08/10/17 09:28 Phenol/Menthol (Chloraseptic) 1 spray Q3H PRN ORAL SORE THROAT 08/10/17 14:00 09/09/17 13:59 Polyethylene Glycol (Miralax) 17 gm BEDTIME ORAL 08/08/17 21:00 09/07/17 20:59 08/09/17 21:09 Pregabalin (Lyrica) 50 mg Q12HR ORAL 08/08/17 09:00 09/07/17 08:59 08/10/17 09:12 Promethazine HCl/ Codeine (Phenergan with Codeine) 5 ml Q4H PRN ORAL For Cough 08/08/17 15:15 09/07/17 15:14 08/09/17 17:52 Quetiapine Fumarate (SEROquel) 12.5 mg HSPRN PRN ORAL Agitation 08/08/17 12:30 09/07/17 12:29 Simethicone (Mylicon) 80 mg Q6H PRN ORAL Abdominal cramps 08/08/17 07:00 09/07/17 06:59 ERVIN COHN Aug 10, 2017 14:00
[2017-08-10 16:00] VITALS: BP 118/66
--- NOTE | 2017-08-10 16:10 | Cardiac Electrophysiology PN ---
Assessment/Plan Assessment/Plan 1. Status post Biotronic biventricular defibrillator implantation. Interrogate the device and showed Nl fx. 2. CHF exacerbation with BNP >2600 . On Coreg 3.125 bid, Isordil 10 bid and hydralazine 10 bid. In view of renal failure, we will avoid JAROCHO inhibitors. 3. Hypertension. Continue current heart failure therapy. 4. Renal failure with a BUN of 34 and creatinine of 2.1. Lasix Dced per renal. Avoid Aldactone, JAROCHO inhibitor, and angiotensin receptor dayna at this time. 5. PNA on Abx per Dr. Boo WALLACE RN Subjective Subjective No chest pain or SOB. remains A sense V paced today. Objective Last 24 Hour Vital Signs Date Time Temp Pulse Resp B/P (MAP) Pulse Ox O2 Delivery O2 Flow Rate FiO2 08/10/17 12:00 90 08/10/17 12:00 97.9 92 18 124/68 100 Nasal Cannula 4.0 97.9 08/10/17 09:00 113/53 08/10/17 09:00 87 113/53 08/10/17 09:00 113/53 08/10/17 08:00 98.8 87 20 113/53 100 Nasal Cannula 4.0 98.8 08/10/17 08:00 84 08/10/17 07:10 Nasal Cannula 2.0 28 08/10/17 07:10 99 Nasal Cannula 2.0 28 08/10/17 04:00 86 08/10/17 04:00 96.9 80 20 121/60 96 Nasal Cannula 4.0 96.9 08/10/17 00:00 89 08/10/17 00:00 96.5 89 22 130/52 95 Nasal Cannula 4.0 96.5 08/09/17 22:35 83 129/48 08/09/17 20:19 96 Nasal Cannula 2.0 28 08/09/17 20:00 83 08/09/17 20:00 99.5 84 19 129/48 100 Nasal Cannula 4.0 99.5 08/09/17 19:30 Nasal Cannula 2.0 28 08/09/17 19:30 82 20 Nasal Cannula 2.0 28 08/09/17 17:55 99/52 Intake and Output 08/09/17 08/10/17 19:00 07:00 Intake Total 340 ml Output Total 400 ml Balance 340 ml -400 ml Intake Oral 240 ml IV Total 100 ml Output Urine Total 400 ml # Voids 3 Laboratory Tests Test 08/10/17 08:15 White Blood Count 8.5 K/UL (4.8-10.8) Red Blood Count 3.62 M/UL (4.20-5.40) L Hemoglobin 9.8 G/DL (12.0-16.0) L Hematocrit 30.8 % (37.0-47.0) L Mean Corpuscular Volume 85 FL (80-99) Mean Corpuscular Hemoglobin 27.2 PG (27.0-31.0) Mean Corpuscular Hemoglobin Concent 32.0 G/DL (32.0-36.0) Red Cell Distribution Width 15.0 % (11.6-14.8) H Platelet Count 188 K/UL (150-450) Mean Platelet Volume 9.4 FL (6.5-10.1) Neutrophils (%) (Auto) 63.7 % (45.0-75.0) Lymphocytes (%) (Auto) 18.1 % (20.0-45.0) L Monocytes (%) (Auto) 11.6 % (1.0-10.0) H Eosinophils (%) (Auto) 6.0 % (0.0-3.0) H Basophils (%) (Auto) 0.6 % (0.0-2.0) Sodium Level 139 MMOL/L (136-145) Potassium Level 4.4 MMOL/L (3.5-5.1) Chloride Level 104 MMOL/L (98-107) Carbon Dioxide Level 31 MMOL/L (21-32) Anion Gap 4 mmol/L (5-15) L Blood Urea Nitrogen 38 mg/dL (7-18) H Creatinine 1.8 MG/DL (0.55-1.30) H Estimat Glomerular Filtration Rate 27.8 mL/min (>60) Glucose Level 139 MG/DL (74-106) H Calcium Level 8.9 MG/DL (8.5-10.1) Troponin I 0.023 ng/mL (0.000-0.056) Pro-B-Type Natriuretic Peptide 2347 pg/mL (0-125) H Microbiology Date/Time Source Procedure Growth Status 08/08/17 20:00 Nasal Nares Influenza Types A,B Antigen (CANDICE) - Final Complete Objective HEAD AND NECK: No JVD. LUNGS: Clear. CARDIOVASCULAR: Regular S1 and S2 with no gallop or murmur. The ICD in the left subclavian intact. ABDOMEN: Soft. EXTREMITIES: 1+ pitting edema. DELORES CHAPARRO Aug 10, 2017 16:10
--- NOTE | 2017-08-10 16:47 | Internal Med Progress Note ---
Subjective Date of Service: Aug 10, 2017 Physician Name Jovana Aguilar Attending Physician Brendan Wrihgt MD Current Medications Medications (Trade) Dose Ordered Sig/[place] Route PRN Reason Start Time Stop Time Status Last Admin Dose Admin Acetaminophen (Tylenol) 500 mg Q4H PRN ORAL Mild Pain/Temp > 100.5 08/08/17 07:00 09/07/17 06:59 08/09/17 12:55 Albuterol/ Ipratropium (Albuterol/ Ipratropium) 3 ml Q4H PRN HHN Shortness of Breath 08/08/17 16:30 08/13/17 16:29 08/09/17 20:16 Aspirin (Ecotrin) 81 mg DAILY ORAL 08/08/17 09:00 09/07/17 08:59 08/10/17 09:12 Atorvastatin Calcium (Lipitor) 40 mg BEDTIME ORAL 08/08/17 21:00 09/07/17 20:59 08/09/17 21:09 Azithromycin (Zithromax) 250 mg DAILY ORAL 08/08/17 09:00 08/15/17 08:59 08/10/17 09:15 Carvedilol (Coreg) 3.125 mg EVERY 12 HOURS ORAL 08/09/17 22:00 09/08/17 21:59 08/09/17 22:35 Ceftriaxone Sodium 1 gm/ Sodium Chloride 55 ml @ 110 mls/hr Q24H IVPB 08/08/17 10:00 08/15/17 09:59 08/10/17 09:29 Clopidogrel Bisulfate (Plavix) 75 mg DAILY ORAL 08/08/17 09:00 09/07/17 08:59 08/10/17 09:12 Dextrose (Dextrose 50%) STAT PRN IV Hypoglycemia 08/08/17 07:00 09/07/17 06:59 Docusate Sodium (Colace) 100 mg THREE TIMES A DAY ORAL 08/09/17 13:30 09/08/17 13:29 08/10/17 13:01 Fexofenadine HCl (Rebecca) 60 mg TWICE A DAY ORAL 08/08/17 10:00 09/07/17 09:59 08/10/17 09:13 Furosemide (Lasix) 20 mg EVERY 12 HOURS IV 08/09/17 22:00 09/08/17 21:59 08/10/17 09:15 Hydralazine HCl (Apresoline) 10 mg BID ORAL 08/10/17 09:00 09/09/17 08:59 Insulin Aspart (NovoLOG) BEFORE MEALS AND HS SUBQ 08/08/17 11:30 09/07/17 11:29 08/10/17 13:01 Isosorbide Mononitrate (Imdur) 30 mg DAILY ORAL 08/08/17 09:00 09/07/17 08:59 08/09/17 10:52 Pantoprazole (Protonix) 40 mg DAILY ORAL 08/08/17 09:00 09/07/17 08:59 08/10/17 09:28 Phenol/Menthol (Chloraseptic) 1 spray Q3H PRN ORAL SORE THROAT 08/10/17 14:00 09/09/17 13:59 Polyethylene Glycol (Miralax) 17 gm BEDTIME ORAL 08/08/17 21:00 09/07/17 20:59 08/09/17 21:09 Pregabalin (Lyrica) 50 mg Q12HR ORAL 08/08/17 09:00 09/07/17 08:59 08/10/17 09:12 Promethazine HCl/ Codeine (Phenergan with Codeine) 5 ml Q4H PRN ORAL For Cough 08/08/17 15:15 09/07/17 15:14 08/09/17 17:52 Quetiapine Fumarate (SEROquel) 12.5 mg HSPRN PRN ORAL Agitation 08/08/17 12:30 09/07/17 12:29 Simethicone (Mylicon) 80 mg Q6H PRN ORAL Abdominal cramps 08/08/17 07:00 09/07/17 06:59 Allergies: Coded Allergies: No Known Allergies (Unverified , 12/18/16) Subjective 72 YO F admitted with shortness of breath. Now pneumonia and Jose D heart failure. Cover for Int [facility]-Dr Wright. Objective Last Vital Signs Date Time Temp Pulse Resp B/P (MAP) Pulse Ox O2 Delivery O2 Flow Rate FiO2 08/10/17 16:00 98.6 95 18 118/66 98 Nasal Cannula 2.0 98.6 08/10/17 07:10 28 Laboratory Tests Test 08/10/17 08:15 White Blood Count 8.5 K/UL (4.8-10.8) Red Blood Count 3.62 M/UL (4.20-5.40) L Hemoglobin 9.8 G/DL (12.0-16.0) L Hematocrit 30.8 % (37.0-47.0) L Mean Corpuscular Volume 85 FL (80-99) Mean Corpuscular Hemoglobin 27.2 PG (27.0-31.0) Mean Corpuscular Hemoglobin Concent 32.0 G/DL (32.0-36.0) Red Cell Distribution Width 15.0 % (11.6-14.8) H Platelet Count 188 K/UL (150-450) Mean Platelet Volume 9.4 FL (6.5-10.1) Neutrophils (%) (Auto) 63.7 % (45.0-75.0) Lymphocytes (%) (Auto) 18.1 % (20.0-45.0) L Monocytes (%) (Auto) 11.6 % (1.0-10.0) H Eosinophils (%) (Auto) 6.0 % (0.0-3.0) H Basophils (%) (Auto) 0.6 % (0.0-2.0) Sodium Level 139 MMOL/L (136-145) Potassium Level 4.4 MMOL/L (3.5-5.1) Chloride Level 104 MMOL/L (98-107) Carbon Dioxide Level 31 MMOL/L (21-32) Anion Gap 4 mmol/L (5-15) L Blood Urea Nitrogen 38 mg/dL (7-18) H Creatinine 1.8 MG/DL (0.55-1.30) H Estimat Glomerular Filtration Rate 27.8 mL/min (>60) Glucose Level 139 MG/DL (74-106) H Calcium Level 8.9 MG/DL (8.5-10.1) Troponin I 0.023 ng/mL (0.000-0.056) Pro-B-Type Natriuretic Peptide 2347 pg/mL (0-125) H Microbiology Date/Time Source Procedure Growth Status 08/08/17 20:00 Nasal Nares Influenza Types A,B Antigen (CANDICE) - Final Complete Intake and Output 08/09/17 08/10/17 19:00 07:00 Intake Total 340 ml Output Total 400 ml Balance 340 ml -400 ml Intake Oral 240 ml IV Total 100 ml Output Urine Total 400 ml # Voids 3 Objective General Appearance: WD/WN, no apparent distress, alert EENT: PERRL/EOMI, normal ENT inspection Neck: non-tender, normal alignment, supple, normal inspection Cardiovascular: normal peripheral pulses, normal rate, regular rhythm, no gallop/murmur, no JVD Respiratory/Chest: chest wall non-tender, lungs clear, normal breath sounds, no respiratory distress, no accessory muscle use Abdomen: normal bowel sounds, no organomegaly, no mass, decreased bowel sounds , tender Extremities: normal range of motion 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 Continue ceftriaxone, azithromycin and flagyl. See pulmonary note. (2) Shortness of breath Assessment & Plan: Due to CHF and pneumonia. (3) Acute renal failure (ARF) Assessment & Plan: See nephrology note. (4) CHF exacerbation Assessment & Plan: Last LVEF=25%. See cardiology note. (5) Cardiomyopathy (6) Diabetes mellitus Assessment & Plan: Continue novolog sliding scale. (7) HTN (hypertension) Assessment & Plan: Continue hydralazine and coreg. (8) Cerebral vascular disease (9) Hemiparesis, right (10) Anemia (11) LBBB (left bundle branch block) Assessment & Plan: S/P pacemaker. See Cardiology note. (12) AICD (automatic cardioverter/defibrillator) present (13) Dysphagia Assessment & Plan: Await video swallow Status: progressing JOVANA AGUILAR Aug 10, 2017 16:46
[2017-08-10 20:00] VITALS: BP 135/62
[2017-08-10] MEDS: Atorvastatin 20mg tab ORAL SCH (21:31)
[2017-08-10] MEDS: Miralax 17gm pkt ORAL SCH (21:33)
--- NOTE | 2017-08-10 22:45 | Progress Note ---
DATE: 08/10/2017 SUBJECTIVE: The patient in bed, Icelandic speaking. The patient is calm. No behavioral issues. Compliant with medication. MENTAL STATUS EXAMINATION: The patient is alert and oriented times to self. Mood is neutral. Affect is constricted. Congruent mood. Thought process is concrete. Thought content, no suicidal or homicidal ideation. Positive for delusions. Cognition is impaired. Insight and judgment non-existent. ASSESSMENT: 1. Encephalopathy. 2. Dementia with behavioral disturbance. PLAN: 1. We will continue current medications. 2. We will continue to follow and readjust the medications. Teresa Douglas M.D. DR: Tien JOB#: [id number] CC:
[2017-08-11] VITALS: BP 118/61
--- NOTE | 2017-08-11 | General Progress Note ---
Assessment/Plan Assessment/Plan 1. Anemia due to underlying chronic disease. --> Anemia workup reviewed. --> Iron 24, TIBC 284, B12 690, Folate 10.9 --> Hemoglobin goal is above 7 --> Continue to closely monitor. 2. Anemia of iron deficiency. Iron low 24. Currently, does not appear to be severe iron deficiency. --> Continue to closely monitor. --> Hemoglobin goal is above 7 and anemia workup has been reviewed. Reticulocyte count 1.9 --> consider iron treatment 3. Cervical cancer, status post total abdominal hysterectomy 4. Pneumonia. She is on broad-spectrum antibiotics as per Pulmonary team. 5. Pulmonary hypertension. 6. Obesity. 7. Diabetes mellitus. 8. Encephalopathy. Subjective Date patient seen: Aug 10, 2017 Constitutional: Denies: no symptoms, chills, diaphoresis, fever, malaise, weakness, other HEENT: Denies: no symptoms, eye pain, blurred vision, tearing, double vision, ear pain, ear discharge, nose pain, nose congestion, throat pain, throat swelling, mouth pain, mouth swelling, other Cardiovascular: Denies: no symptoms, chest pain, edema, irregular heart rate, lightheadedness, palpitations, syncope, other Respiratory: Denies: no symptoms, cough, orthopnea, shortness of breath, SOB with excertion, SOB at rest, sputum, stridor, wheezing, other Gastrointestinal/Abdominal: Denies: no symptoms, abdomen distended, abdominal pain, black stools, tarry stools, blood in stool, constipated, diarrhea, difficulty swallowing, nausea, poor appetite, poor fluid intake, rectal bleeding , vomiting, other Genitourinary: Denies: no symptoms, burning, discharge, frequency, flank pain, hematuria, incontinence, pain, urgency, other Hematologic/Lymphatic: Reports: anemia Allergies: Coded Allergies: No Known Allergies (Unverified , 12/18/16) Subjective H/H stable. No acute events. Objective Last 24 Hour Vital Signs Date Time Temp Pulse Resp B/P (MAP) Pulse Ox O2 Delivery O2 Flow Rate FiO2 08/10/17 21:32 107 135/62 08/10/17 20:00 99 08/10/17 20:00 Nasal Cannula 2.0 28 08/10/17 20:00 98.8 107 26 135/62 96 Nasal Cannula 2.0 98.8 08/10/17 20:00 98 Nasal Cannula 2.0 28 08/10/17 17:35 118/66 08/10/17 16:00 98.6 95 18 118/66 98 Nasal Cannula 2.0 98.6 08/10/17 16:00 99 08/10/17 12:00 90 08/10/17 12:00 97.9 92 18 124/68 100 Nasal Cannula 4.0 97.9 08/10/17 09:00 113/53 08/10/17 09:00 87 113/53 08/10/17 09:00 113/53 08/10/17 08:00 98.8 87 20 113/53 100 Nasal Cannula 4.0 98.8 08/10/17 08:00 84 08/10/17 07:10 Nasal Cannula 2.0 28 08/10/17 07:10 99 Nasal Cannula 2.0 28 08/10/17 04:00 86 08/10/17 04:00 96.9 80 20 121/60 96 Nasal Cannula 4.0 96.9 08/10/17 00:00 89 08/10/17 00:00 96.5 89 22 130/52 95 Nasal Cannula 4.0 96.5 Intake and Output 08/09/17 08/10/17 19:00 07:00 Intake Total 340 ml Output Total 400 ml Balance 340 ml -400 ml Intake Oral 240 ml IV Total 100 ml Output Urine Total 400 ml # Voids 3 Laboratory Tests 08/10/17 08:15: White Blood Count 8.5, Red Blood Count 3.62L, Hemoglobin 9.8L, Hematocrit 30.8L , Mean Corpuscular Volume 85, Mean Corpuscular Hemoglobin 27.2, Mean Corpuscular Hemoglobin Concent 32.0, Red Cell Distribution Width 15.0H, Platelet Count 188, Mean Platelet Volume 9.4, Neutrophils (%) (Auto) 63.7, Lymphocytes (%) (Auto) 18.1L, Monocytes (%) (Auto) 11.6H, Eosinophils (%) (Auto ) 6.0H, Basophils (%) (Auto) 0.6, Sodium Level 139, Potassium Level 4.4, Chloride Level 104, Carbon Dioxide Level 31, Anion Gap 4L, Blood Urea Nitrogen 38H, Creatinine 1.8H, Estimat Glomerular Filtration Rate 27.8, Glucose Level 139H, Calcium Level 8.9, Troponin I 0.023, Pro-B-Type Natriuretic Peptide 2347H Height (Feet): 5 Height (Inches): 3.00 Weight (Pounds): 192 General Appearance: no apparent distress Respiratory/Chest: decreased breath sounds Daljit iMles Aug 11, 2017 00:00
[2017-08-11 04:00] VITALS: BP 108/60
[2017-08-11] MEDS: NovoLOG Insulin Flexpen SUBQ SCH ×4 (06:07→21:00)
[2017-08-11 07:05] LABS: EOSINOPHILS % (AUTO) 5.1 % (0.0-3.0); HEMATOCRIT 31.6 % (37.0-47.0); HEMOGLOBIN 10.1 G/DL (12.0-16.0); MEAN CORPUSCULAR VOLUME 85 FL (80-99); MONOCYTES % (AUTO) 9.9 % (1.0-10.0); NEUTROPHILS % (AUTO) 66.1 % (45.0-75.0); PLATELET COUNT 178 K/UL (150-450); RED BLOOD COUNT 3.74 M/UL (4.20-5.40); RED CELL DISTRIBUTION WIDTH 14.7 % (11.6-14.8); WHITE BLOOD COUNT 7.8 K/UL (4.8-10.8)
[2017-08-11 07:45] LABS: ALANINE AMINOTRANSFERASE 11 U/L (12-78); ALBUMIN 2.8 G/DL (3.4-5.0); ALBUMIN/GLOBULIN RATIO 0.6 (1.0-2.7); ALKALINE PHOSPHATASE 84 U/L (46-116); ANION GAP 7 mmol/L (5-15); ASPARTATE AMINO TRANSFERASE 13 U/L (15-37); BILIRUBIN,TOTAL 0.5 MG/DL (0.2-1.0); BLOOD UREA NITROGEN 32 mg/dL (7-18); CALCIUM 9.1 MG/DL (8.5-10.1); CARBON DIOXIDE 31 MMOL/L (21-32); CHLORIDE 104 MMOL/L (98-107); CREATININE 1.5 MG/DL (0.55-1.30); POTASSIUM 4.8 MMOL/L (3.5-5.1); SODIUM 141 MMOL/L (136-145)
[2017-08-11 08:00] VITALS: BP 104/59
--- NOTE | 2017-08-11 09:00 | Cardiac Electrophysiology PN ---
Assessment/Plan Assessment/Plan 1. Status post Biotronic biventricular defibrillator implantation. Interrogated the device and showed Nl fx. Already has appointment with me in office for follow up. 2. CHF exacerbation with BNP >2600 . EF 25%. On Coreg 3.125 bid, Isordil 10 bid , hydralazine 10 bid. Change Lasix to 40 po daily. In view of renal failure, we will avoid JAROCHO inhibitors. 3. Hypertension. Continue current heart failure therapy. 4. Renal failure with a BUN of 34 and creatinine of 2.1. Cr improved to 1.5. Avoid Aldactone, JAROCHO inhibitor, and angiotensin receptor dayna at this time. 5. PNA on Abx per Dr. Boo WALLACE RN Subjective Subjective No chest pain or SOB. Remains A sense V paced. No arrhythmias on tele. Objective Last 24 Hour Vital Signs Date Time Temp Pulse Resp B/P (MAP) Pulse Ox O2 Delivery O2 Flow Rate FiO2 08/11/17 07:00 Nasal Cannula 2.0 28 08/11/17 07:00 98 Nasal Cannula 2.0 28 08/11/17 04:00 98.2 86 24 108/60 97 Nasal Cannula 2.0 98.2 08/11/17 04:00 83 08/11/17 00:00 98.2 94 16 118/61 97 Nasal Cannula 2.0 98.2 08/11/17 00:00 90 08/10/17 21:32 107 135/62 08/10/17 20:00 99 08/10/17 20:00 Nasal Cannula 2.0 28 08/10/17 20:00 98.8 107 26 135/62 96 Nasal Cannula 2.0 98.8 08/10/17 20:00 98 Nasal Cannula 2.0 28 08/10/17 17:35 118/66 08/10/17 16:00 98.6 95 18 118/66 98 Nasal Cannula 2.0 98.6 08/10/17 16:00 99 08/10/17 12:00 90 08/10/17 12:00 97.9 92 18 124/68 100 Nasal Cannula 4.0 97.9 08/10/17 09:00 113/53 08/10/17 09:00 87 113/53 08/10/17 09:00 113/53 Intake and Output 08/10/17 08/11/17 18:59 06:59 Intake Total 775 ml 300 ml Balance 775 ml 300 ml Intake Oral 720 ml 300 ml IV Total 55 ml # Voids 3 # Bowel Movements 1 Laboratory Tests Test 08/11/17 06:05 White Blood Count 7.8 K/UL (4.8-10.8) Red Blood Count 3.74 M/UL (4.20-5.40) L Hemoglobin 10.1 G/DL (12.0-16.0) L Hematocrit 31.6 % (37.0-47.0) L Mean Corpuscular Volume 85 FL (80-99) Mean Corpuscular Hemoglobin 27.0 PG (27.0-31.0) Mean Corpuscular Hemoglobin Concent 31.9 G/DL (32.0-36.0) L Red Cell Distribution Width 14.7 % (11.6-14.8) Platelet Count 178 K/UL (150-450) Mean Platelet Volume 9.1 FL (6.5-10.1) Neutrophils (%) (Auto) 66.1 % (45.0-75.0) Lymphocytes (%) (Auto) 18.0 % (20.0-45.0) L Monocytes (%) (Auto) 9.9 % (1.0-10.0) Eosinophils (%) (Auto) 5.1 % (0.0-3.0) H Basophils (%) (Auto) 1.0 % (0.0-2.0) Sodium Level 141 MMOL/L (136-145) Potassium Level 4.8 MMOL/L (3.5-5.1) Chloride Level 104 MMOL/L (98-107) Carbon Dioxide Level 31 MMOL/L (21-32) Anion Gap 7 mmol/L (5-15) Blood Urea Nitrogen 32 mg/dL (7-18) H Creatinine 1.5 MG/DL (0.55-1.30) H Estimat Glomerular Filtration Rate 34.4 mL/min (>60) Glucose Level 175 MG/DL (74-106) H Calcium Level 9.1 MG/DL (8.5-10.1) Phosphorus Level 4.0 MG/DL (2.5-4.9) Magnesium Level 2.0 MG/DL (1.8-2.4) Total Bilirubin 0.5 MG/DL (0.2-1.0) Aspartate Amino Transf (AST/SGOT) 13 U/L (15-37) L Alanine Aminotransferase (ALT/SGPT) 11 U/L (12-78) L Alkaline Phosphatase 84 U/L (46-116) Pro-B-Type Natriuretic Peptide 5943 pg/mL (0-125) H Total Protein 7.4 G/DL (6.4-8.2) Albumin 2.8 G/DL (3.4-5.0) L Globulin 4.6 g/dL Albumin/Globulin Ratio 0.6 (1.0-2.7) L Microbiology Date/Time Source Procedure Growth Status 08/08/17 20:00 Nasal Nares Influenza Types A,B Antigen (CANDICE) - Final Complete Objective HEAD AND NECK: No JVD. LUNGS: Clear. CARDIOVASCULAR: Regular S1 and S2 with no gallop or murmur. ICD in the left subclavian intact. ABDOMEN: Soft. EXTREMITIES: 1+ pitting edema. DELORES CHAPARRO Aug 11, 2017 08:59
[2017-08-11] MEDS: Azithromycin 250mg tab ORAL SCH (10:02)
[2017-08-11] MEDS: cefTRIAXone 1 GM in NS 55 ML IVPB SCH (10:03)
[2017-08-11] MEDS: Aspirin EC 81mg tab ORAL SCH (10:03)
[2017-08-11] MEDS: Docusate 100mg cap ORAL SCH ×3 (10:03→17:39)
[2017-08-11] MEDS: Lyrica 50mg cap ORAL SCH ×2 (10:03→21:00)
[2017-08-11] MEDS: Furosemide 40mg tab ORAL SCH (10:04)
[2017-08-11] MEDS: HydrALAZINE 10mg Tab ORAL SCH ×2 (10:07→21:00)
[2017-08-11] MEDS: Imdur 30mg tab ORAL SCH (10:08)
--- NOTE | 2017-08-11 11:52 | Diagnostic Imaging Report ---
Indication: Dyspnea Comparison: 08/08/2018 A single view chest radiograph was obtained. Findings: There is evidence of moderate pulmonary vascular congestion at this time but this appears slightly improved since the previous exam. There is a pacemaker again noted. Heart remains enlarged. IMPRESSION: CHF/interstitial edema with some interval improvement
[2017-08-11 12:00] VITALS: BP 101/50
--- NOTE | 2017-08-11 13:03 | GI Progress Note ---
Assessment/Plan Problems: (1) Iron deficiency anemia ICD Codes: D50.9 - Iron deficiency anemia, unspecified SNOMED: 81743354 (2) Anemia ICD Codes: D64.9 - Anemia, unspecified SNOMED: 842817824 (3) EF 25% (4) Obesity ICD Codes: E66.9 - Obesity, unspecified SNOMED: 144762325 Status: stable Status Narrative Discussed with Dr. Leal. Assessment/Plan hepatomegaly with fatty infiltration. s/p normal EGD in 2017/normal colonoscopy in 2014, see report. EF - 20% chronic abdominal pain anemia work up reviewed >> iron deficiency >> Venofer ST evaluation reviewed >> LIQUIFIED PUREED SOUP DIET LIKE THIN AND NECTAR THICK CONSISTENCIES (WARM BROTH OR CREAMY SOUPS) WITH POSTED ASPIRATION PRECAUTIONS. symptomatic treatment pain mgmt prn transfusion bowel regime ppi dc carafate simethicone prn pt on plavix repeat colonoscopy 2019 The patient was seen and examined at bedside and all new and available data was reviewed in the patients chart. I agree with the above findings, impression and plan. (Patient seen earlier today. Signature stamp does not reflect patient encounter time.). - Del Leal MD Subjective Subjective abdominal discomfort Objective Last 24 Hour Vital Signs Date Time Temp Pulse Resp B/P (MAP) Pulse Ox O2 Delivery O2 Flow Rate FiO2 08/11/17 12:00 98.1 77 19 101/50 99 Nasal Cannula 2.0 98.1 08/11/17 12:00 78 08/11/17 10:08 104/59 08/11/17 10:07 104/59 08/11/17 10:02 89 104/59 08/11/17 08:00 97.8 89 19 104/59 100 Nasal Cannula 2.0 97.8 08/11/17 08:00 79 08/11/17 07:00 Nasal Cannula 2.0 28 08/11/17 07:00 98 Nasal Cannula 2.0 28 08/11/17 04:00 98.2 86 24 108/60 97 Nasal Cannula 2.0 98.2 08/11/17 04:00 83 08/11/17 00:00 98.2 94 16 118/61 97 Nasal Cannula 2.0 98.2 08/11/17 00:00 90 08/10/17 21:32 107 135/62 08/10/17 20:00 99 08/10/17 20:00 Nasal Cannula 2.0 28 08/10/17 20:00 98.8 107 26 135/62 96 Nasal Cannula 2.0 98.8 08/10/17 20:00 98 Nasal Cannula 2.0 28 08/10/17 17:35 118/66 08/10/17 16:00 98.6 95 18 118/66 98 Nasal Cannula 2.0 98.6 08/10/17 16:00 99 Intake and Output 08/10/17 08/11/17 19:00 07:00 Intake Total 775 ml 300 ml Balance 775 ml 300 ml Intake Oral 720 ml 300 ml IV Total 55 ml # Voids 3 # Bowel Movements 1 Laboratory Tests Test 08/11/17 06:05 White Blood Count 7.8 K/UL (4.8-10.8) Red Blood Count 3.74 M/UL (4.20-5.40) L Hemoglobin 10.1 G/DL (12.0-16.0) L Hematocrit 31.6 % (37.0-47.0) L Mean Corpuscular Volume 85 FL (80-99) Mean Corpuscular Hemoglobin 27.0 PG (27.0-31.0) Mean Corpuscular Hemoglobin Concent 31.9 G/DL (32.0-36.0) L Red Cell Distribution Width 14.7 % (11.6-14.8) Platelet Count 178 K/UL (150-450) Mean Platelet Volume 9.1 FL (6.5-10.1) Neutrophils (%) (Auto) 66.1 % (45.0-75.0) Lymphocytes (%) (Auto) 18.0 % (20.0-45.0) L Monocytes (%) (Auto) 9.9 % (1.0-10.0) Eosinophils (%) (Auto) 5.1 % (0.0-3.0) H Basophils (%) (Auto) 1.0 % (0.0-2.0) Sodium Level 141 MMOL/L (136-145) Potassium Level 4.8 MMOL/L (3.5-5.1) Chloride Level 104 MMOL/L (98-107) Carbon Dioxide Level 31 MMOL/L (21-32) Anion Gap 7 mmol/L (5-15) Blood Urea Nitrogen 32 mg/dL (7-18) H Creatinine 1.5 MG/DL (0.55-1.30) H Estimat Glomerular Filtration Rate 34.4 mL/min (>60) Glucose Level 175 MG/DL (74-106) H Calcium Level 9.1 MG/DL (8.5-10.1) Phosphorus Level 4.0 MG/DL (2.5-4.9) Magnesium Level 2.0 MG/DL (1.8-2.4) Total Bilirubin 0.5 MG/DL (0.2-1.0) Aspartate Amino Transf (AST/SGOT) 13 U/L (15-37) L Alanine Aminotransferase (ALT/SGPT) 11 U/L (12-78) L Alkaline Phosphatase 84 U/L (46-116) Pro-B-Type Natriuretic Peptide 5943 pg/mL (0-125) H Total Protein 7.4 G/DL (6.4-8.2) Albumin 2.8 G/DL (3.4-5.0) L Globulin 4.6 g/dL Albumin/Globulin Ratio 0.6 (1.0-2.7) L Height (Feet): 5 Height (Inches): 3.00 Weight (Pounds): 192 General Appearance: WD/WN, no apparent distress, alert, overweight Cardiovascular: normal rate Respiratory/Chest: normal breath sounds, no respiratory distress Abdominal Exam: normal bowel sounds, non tender, soft Extremities: normal range of motion, non-tender Rizwana Cotton N.P. Aug 11, 2017 13:03 BIN LEAL Aug 14, 2017 10:11
--- NOTE | 2017-08-11 15:19 | Diagnostic Imaging Report ---
Indication: Dysphasia Procedure and findings: Real-time fluoroscopic imaging performed in a lateral projection in conjunction with the speech pathologist evaluation. Variable consistencies of barium given per mouth. Findings: Significant abnormalities of both oral and pharyngeal phases of swallowing are demonstrated. Total fluoroscopic time 201 second. No definite penetration or aspiration identified. Abnormal video swallow. Please refer to speech pathology evaluation for more information.
--- NOTE | 2017-08-11 15:34 | Pulmonology Progress Note ---
Assessment/Plan Problems: (1) Pneumonia (2) AICD (automatic cardioverter/defibrillator) present (3) COPD (chronic obstructive pulmonary disease) (4) EF 25% (5) Acute kidney injury (6) Obesity (7) Hemiplegia affecting right dominant side Assessment/Plan no new complains looks bettterimproving continue abx. check cultures titrate fio2 to sat of 92% med/surg if ok with protective signal repairer. Subjective Constitutional: Reports: no symptoms Respiratory: Reports: no symptoms Cardiovascular: Reports: no symptoms Allergies: Coded Allergies: No Known Allergies (Unverified , 12/18/16) Objective Last 24 Hour Vital Signs Date Time Temp Pulse Resp B/P (MAP) Pulse Ox O2 Delivery O2 Flow Rate FiO2 08/11/17 12:00 98.1 77 19 101/50 99 Nasal Cannula 2.0 98.1 08/11/17 12:00 78 08/11/17 10:08 104/59 08/11/17 10:07 104/59 08/11/17 10:02 89 104/59 08/11/17 08:00 97.8 89 19 104/59 100 Nasal Cannula 2.0 97.8 08/11/17 08:00 79 08/11/17 07:00 Nasal Cannula 2.0 28 08/11/17 07:00 98 Nasal Cannula 2.0 28 08/11/17 04:00 98.2 86 24 108/60 97 Nasal Cannula 2.0 98.2 08/11/17 04:00 83 08/11/17 00:00 98.2 94 16 118/61 97 Nasal Cannula 2.0 98.2 08/11/17 00:00 90 08/10/17 21:32 107 135/62 08/10/17 20:00 99 08/10/17 20:00 Nasal Cannula 2.0 28 08/10/17 20:00 98.8 107 26 135/62 96 Nasal Cannula 2.0 98.8 08/10/17 20:00 98 Nasal Cannula 2.0 28 08/10/17 17:35 118/66 08/10/17 16:00 98.6 95 18 118/66 98 Nasal Cannula 2.0 98.6 08/10/17 16:00 99 Intake and Output 08/10/17 08/11/17 19:00 07:00 Intake Total 775 ml 300 ml Balance 775 ml 300 ml Intake Oral 720 ml 300 ml IV Total 55 ml # Voids 3 # Bowel Movements 1 Objective General Appearance: WD/WN, Lines, tubes and drains: peripheral HEENT: normocephalic, atraumatic Neck: non-tender, normal alignment, supple Respiratory/Chest: chest wall non-tender, rhonchi Breasts: no masses Cardiovascular/Chest: normal peripheral pulses, normal rate Abdomen: normal bowel sounds, non tender Genitourinary/Rectal: normal genital exam, normal rectal exam Extremities: normal range of motion, non-tender Skin Exam: normal pigmentation Neurologic: precision grinder external II-XII 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, Microbiology Date/Time Source Procedure Growth Status 08/08/17 20:00 Nasal Nares Influenza Types A,B Antigen (CANDICE) - Final Complete Laboratory Tests 08/11/17 06:05: White Blood Count 7.8, Red Blood Count 3.74L, Hemoglobin 10.1L, Hematocrit 31.6L , Mean Corpuscular Volume 85, Mean Corpuscular Hemoglobin 27.0, Mean Corpuscular Hemoglobin Concent 31.9L, Red Cell Distribution Width 14.7, Platelet Count 178, Mean Platelet Volume 9.1, Neutrophils (%) (Auto) 66.1, Lymphocytes (%) (Auto) 18.0L, Monocytes (%) (Auto) 9.9, Eosinophils (%) (Auto) 5.1H, Basophils (%) (Auto) 1.0, Sodium Level 141, Potassium Level 4.8, Chloride Level 104, Carbon Dioxide Level 31, Anion Gap 7, Blood Urea Nitrogen 32H, Creatinine 1.5H, Estimat Glomerular Filtration Rate 34.4, Glucose Level 175H, Calcium Level 9.1, Phosphorus Level 4.0, Magnesium Level 2.0, Total Bilirubin 0.5, Aspartate Amino Transf (AST/SGOT) 13L, Alanine Aminotransferase (ALT/SGPT) 11L, Alkaline Phosphatase 84, Pro-B-Type Natriuretic Peptide 5943H, Total Protein 7.4, Albumin 2.8L, Globulin 4.6, Albumin/Globulin Ratio 0.6L Current Medications Medications (Trade) Dose Ordered Sig/[place] Route PRN Reason Start Time Stop Time Status Last Admin Dose Admin Acetaminophen (Tylenol) 500 mg Q4H PRN ORAL Mild Pain/Temp > 100.5 08/08/17 07:00 09/07/17 06:59 08/09/17 12:55 Albuterol/ Ipratropium (Albuterol/ Ipratropium) 3 ml Q4H PRN HHN Shortness of Breath 08/08/17 16:30 08/13/17 16:29 08/09/17 20:16 Aspirin (Ecotrin) 81 mg DAILY ORAL 08/08/17 09:00 09/07/17 08:59 08/11/17 10:03 Atorvastatin Calcium (Lipitor) 40 mg BEDTIME ORAL 08/08/17 21:00 09/07/17 20:59 08/10/17 21:31 Azithromycin (Zithromax) 250 mg DAILY ORAL 08/08/17 09:00 08/15/17 08:59 08/11/17 10:02 Carvedilol (Coreg) 3.125 mg EVERY 12 HOURS ORAL 08/09/17 22:00 09/08/17 21:59 08/11/17 10:02 Ceftriaxone Sodium 1 gm/ Sodium Chloride 55 ml @ 110 mls/hr Q24H IVPB 08/08/17 10:00 08/15/17 09:59 08/11/17 10:03 Clopidogrel Bisulfate (Plavix) 75 mg DAILY ORAL 08/08/17 09:00 09/07/17 08:59 08/11/17 10:03 Dextrose (Dextrose 50%) STAT PRN IV Hypoglycemia 08/08/17 07:00 09/07/17 06:59 Docusate Sodium (Colace) 100 mg THREE TIMES A DAY ORAL 08/09/17 13:30 09/08/17 13:29 08/11/17 12:56 Fexofenadine HCl (Rebecca) 60 mg TWICE A DAY ORAL 08/08/17 10:00 09/07/17 09:59 08/11/17 10:02 Furosemide (Lasix) 40 mg DAILY ORAL 08/11/17 09:15 09/10/17 09:14 08/11/17 10:04 Hydralazine HCl (Apresoline) 10 mg Q12HR ORAL 08/11/17 09:00 09/10/17 08:59 08/11/17 10:07 Insulin Aspart (NovoLOG) BEFORE MEALS AND HS SUBQ 08/08/17 11:30 09/07/17 11:29 08/11/17 12:57 Isosorbide Mononitrate (Imdur) 30 mg DAILY ORAL 08/11/17 09:00 09/10/17 08:59 08/11/17 10:08 Pantoprazole (Protonix) 40 mg DAILY ORAL 08/08/17 09:00 09/07/17 08:59 08/11/17 10:02 Phenol/Menthol (Chloraseptic) 1 spray Q3H PRN ORAL SORE THROAT 08/10/17 14:00 09/09/17 13:59 Polyethylene Glycol (Miralax) 17 gm BEDTIME ORAL 08/08/17 21:00 09/07/17 20:59 08/10/17 21:33 Pregabalin (Lyrica) 50 mg Q12HR ORAL 08/08/17 09:00 09/07/17 08:59 08/11/17 10:03 Promethazine HCl/ Codeine (Phenergan with Codeine) 5 ml Q4H PRN ORAL For Cough 08/08/17 15:15 09/07/17 15:14 08/09/17 17:52 Quetiapine Fumarate (SEROquel) 12.5 mg HSPRN PRN ORAL Agitation 08/08/17 12:30 09/07/17 12:29 Simethicone (Mylicon) 80 mg Q6H PRN ORAL Abdominal cramps 08/08/17 07:00 09/07/17 06:59 ERVIN COHN Aug 11, 2017 15:34
--- NOTE | 2017-08-11 15:43 | Infectious Diseases Prog Note ---
Assessment/Plan Assessment/Plan ASSESSMENT: The patient is a 72-year-old female with, Community-acquired pneumonia. Chest x-ray, CHF/interstitial edema with some interval improvement Normal white blood cells. Afebrile. Influenza A/B negative. COPD CHF EF : 25-30%. Cardiomyopathy Diabetes Hypertension CVA History of right hemiparesis History of cervical cancer, status post hysterectomy. Iron-deficiency anemia. History of AICD placement. Diverticulosis. History of hiatal hernia. GERD/esophagitis. Status post normal EGD and normal colonoscopy in October of 2016. PLAN: cont pt on Zithromax and Rocephin day # 4 /5 08/09b SP Flagyl day #2 Monitor CBC. Monitor BMP. Monitor cultures (sputum). Monitor chest x-ray. Subjective Constitutional: Denies: no symptoms, fever, chills, fatigue, anorexia, drenching sweats, other Allergies: Coded Allergies: No Known Allergies (Unverified , 12/18/16) Subjective Afebrile Objective Vital Signs Last 24 Hour Vital Signs Date Time Temp Pulse Resp B/P (MAP) Pulse Ox O2 Delivery O2 Flow Rate FiO2 08/11/17 12:00 98.1 77 19 101/50 99 Nasal Cannula 2.0 98.1 08/11/17 12:00 78 08/11/17 10:08 104/59 08/11/17 10:07 104/59 08/11/17 10:02 89 104/59 08/11/17 08:00 97.8 89 19 104/59 100 Nasal Cannula 2.0 97.8 08/11/17 08:00 79 08/11/17 07:00 Nasal Cannula 2.0 28 08/11/17 07:00 98 Nasal Cannula 2.0 28 08/11/17 04:00 98.2 86 24 108/60 97 Nasal Cannula 2.0 98.2 08/11/17 04:00 83 08/11/17 00:00 98.2 94 16 118/61 97 Nasal Cannula 2.0 98.2 08/11/17 00:00 90 08/10/17 21:32 107 135/62 08/10/17 20:00 99 08/10/17 20:00 Nasal Cannula 2.0 28 08/10/17 20:00 98.8 107 26 135/62 96 Nasal Cannula 2.0 98.8 08/10/17 20:00 98 Nasal Cannula 2.0 28 08/10/17 17:35 118/66 08/10/17 16:00 98.6 95 18 98 Nasal Cannula 2.0 98.6 08/10/17 16:00 99 Height (Feet): 5 Height (Inches): 3.00 Weight (Pounds): 192 HEENT: anicteric Respiratory/Chest: no respiratory distress Cardiovascular: regularly irregular Abdomen: non distended Microbiology Date/Time Source Procedure Growth Status 08/08/17 20:00 Nasal Nares Influenza Types A,B Antigen (CANDICE) - Final Complete Laboratory Tests Test 08/11/17 06:05 White Blood Count 7.8 K/UL (4.8-10.8) Red Blood Count 3.74 M/UL (4.20-5.40) L Hemoglobin 10.1 G/DL (12.0-16.0) L Hematocrit 31.6 % (37.0-47.0) L Mean Corpuscular Volume 85 FL (80-99) Mean Corpuscular Hemoglobin 27.0 PG (27.0-31.0) Mean Corpuscular Hemoglobin Concent 31.9 G/DL (32.0-36.0) L Red Cell Distribution Width 14.7 % (11.6-14.8) Platelet Count 178 K/UL (150-450) Mean Platelet Volume 9.1 FL (6.5-10.1) Neutrophils (%) (Auto) 66.1 % (45.0-75.0) Lymphocytes (%) (Auto) 18.0 % (20.0-45.0) L Monocytes (%) (Auto) 9.9 % (1.0-10.0) Eosinophils (%) (Auto) 5.1 % (0.0-3.0) H Basophils (%) (Auto) 1.0 % (0.0-2.0) Sodium Level 141 MMOL/L (136-145) Potassium Level 4.8 MMOL/L (3.5-5.1) Chloride Level 104 MMOL/L (98-107) Carbon Dioxide Level 31 MMOL/L (21-32) Anion Gap 7 mmol/L (5-15) Blood Urea Nitrogen 32 mg/dL (7-18) H Creatinine 1.5 MG/DL (0.55-1.30) H Estimat Glomerular Filtration Rate 34.4 mL/min (>60) Glucose Level 175 MG/DL (74-106) H Calcium Level 9.1 MG/DL (8.5-10.1) Phosphorus Level 4.0 MG/DL (2.5-4.9) Magnesium Level 2.0 MG/DL (1.8-2.4) Total Bilirubin 0.5 MG/DL (0.2-1.0) Aspartate Amino Transf (AST/SGOT) 13 U/L (15-37) L Alanine Aminotransferase (ALT/SGPT) 11 U/L (12-78) L Alkaline Phosphatase 84 U/L (46-116) Pro-B-Type Natriuretic Peptide 5943 pg/mL (0-125) H Total Protein 7.4 G/DL (6.4-8.2) Albumin 2.8 G/DL (3.4-5.0) L Globulin 4.6 g/dL Albumin/Globulin Ratio 0.6 (1.0-2.7) L Current Medications Medications (Trade) Dose Ordered Sig/[place] Route PRN Reason Start Time Stop Time Status Last Admin Dose Admin Acetaminophen (Tylenol) 500 mg Q4H PRN ORAL Mild Pain/Temp > 100.5 08/08/17 07:00 09/07/17 06:59 08/09/17 12:55 Albuterol/ Ipratropium (Albuterol/ Ipratropium) 3 ml Q4H PRN HHN Shortness of Breath 08/08/17 16:30 08/13/17 16:29 08/09/17 20:16 Aspirin (Ecotrin) 81 mg DAILY ORAL 08/08/17 09:00 09/07/17 08:59 08/11/17 10:03 Atorvastatin Calcium (Lipitor) 40 mg BEDTIME ORAL 08/08/17 21:00 09/07/17 20:59 08/10/17 21:31 Azithromycin (Zithromax) 250 mg DAILY ORAL 08/08/17 09:00 08/15/17 08:59 08/11/17 10:02 Carvedilol (Coreg) 3.125 mg EVERY 12 HOURS ORAL 08/09/17 22:00 09/08/17 21:59 08/11/17 10:02 Ceftriaxone Sodium 1 gm/ Sodium Chloride 55 ml @ 110 mls/hr Q24H IVPB 08/08/17 10:00 08/15/17 09:59 08/11/17 10:03 Clopidogrel Bisulfate (Plavix) 75 mg DAILY ORAL 08/08/17 09:00 09/07/17 08:59 08/11/17 10:03 Dextrose (Dextrose 50%) STAT PRN IV Hypoglycemia 08/08/17 07:00 09/07/17 06:59 Docusate Sodium (Colace) 100 mg THREE TIMES A DAY ORAL 08/09/17 13:30 09/08/17 13:29 08/11/17 12:56 Fexofenadine HCl (Rebecca) 60 mg TWICE A DAY ORAL 08/08/17 10:00 09/07/17 09:59 08/11/17 10:02 Furosemide (Lasix) 40 mg DAILY ORAL 08/11/17 09:15 09/10/17 09:14 08/11/17 10:04 Hydralazine HCl (Apresoline) 10 mg Q12HR ORAL 08/11/17 09:00 09/10/17 08:59 08/11/17 10:07 Insulin Aspart (NovoLOG) BEFORE MEALS AND HS SUBQ 08/08/17 11:30 09/07/17 11:29 08/11/17 12:57 Isosorbide Mononitrate (Imdur) 30 mg DAILY ORAL 08/11/17 09:00 09/10/17 08:59 08/11/17 10:08 Pantoprazole (Protonix) 40 mg DAILY ORAL 08/08/17 09:00 09/07/17 08:59 08/11/17 10:02 Phenol/Menthol (Chloraseptic) 1 spray Q3H PRN ORAL SORE THROAT 08/10/17 14:00 09/09/17 13:59 Polyethylene Glycol (Miralax) 17 gm BEDTIME ORAL 08/08/17 21:00 09/07/17 20:59 08/10/17 21:33 Pregabalin (Lyrica) 50 mg Q12HR ORAL 08/08/17 09:00 09/07/17 08:59 08/11/17 10:03 Promethazine HCl/ Codeine (Phenergan with Codeine) 5 ml Q4H PRN ORAL For Cough 08/08/17 15:15 09/07/17 15:14 08/09/17 17:52 Quetiapine Fumarate (SEROquel) 12.5 mg HSPRN PRN ORAL Agitation 08/08/17 12:30 09/07/17 12:29 Simethicone (Mylicon) 80 mg Q6H PRN ORAL Abdominal cramps 08/08/17 07:00 09/07/17 06:59 QUETA LENTZ M.D. Aug 11, 2017 15:43
[2017-08-11 16:00] VITALS: BP 100/52
--- NOTE | 2017-08-11 16:25 | Internal Med Progress Note ---
Subjective Date of Service: Aug 11, 2017 Physician Name Jovana Aguilar Attending Physician Brendan Wright MD Current Medications Medications (Trade) Dose Ordered Sig/[place] Route PRN Reason Start Time Stop Time Status Last Admin Dose Admin Acetaminophen (Tylenol) 500 mg Q4H PRN ORAL Mild Pain/Temp > 100.5 08/08/17 07:00 09/07/17 06:59 08/09/17 12:55 Albuterol/ Ipratropium (Albuterol/ Ipratropium) 3 ml Q4H PRN HHN Shortness of Breath 08/08/17 16:30 08/13/17 16:29 08/09/17 20:16 Aspirin (Ecotrin) 81 mg DAILY ORAL 08/08/17 09:00 09/07/17 08:59 08/11/17 10:03 Atorvastatin Calcium (Lipitor) 40 mg BEDTIME ORAL 08/08/17 21:00 09/07/17 20:59 08/10/17 21:31 Azithromycin (Zithromax) 250 mg DAILY ORAL 08/08/17 09:00 08/15/17 08:59 08/11/17 10:02 Carvedilol (Coreg) 3.125 mg EVERY 12 HOURS ORAL 08/09/17 22:00 09/08/17 21:59 08/11/17 10:02 Ceftriaxone Sodium 1 gm/ Sodium Chloride 55 ml @ 110 mls/hr Q24H IVPB 08/08/17 10:00 08/15/17 09:59 08/11/17 10:03 Clopidogrel Bisulfate (Plavix) 75 mg DAILY ORAL 08/08/17 09:00 09/07/17 08:59 08/11/17 10:03 Dextrose (Dextrose 50%) STAT PRN IV Hypoglycemia 08/08/17 07:00 09/07/17 06:59 Docusate Sodium (Colace) 100 mg THREE TIMES A DAY ORAL 08/09/17 13:30 09/08/17 13:29 08/11/17 12:56 Fexofenadine HCl (Rebecca) 60 mg TWICE A DAY ORAL 08/08/17 10:00 09/07/17 09:59 08/11/17 10:02 Furosemide (Lasix) 40 mg DAILY ORAL 08/11/17 09:15 09/10/17 09:14 08/11/17 10:04 Hydralazine HCl (Apresoline) 10 mg Q12HR ORAL 08/11/17 09:00 09/10/17 08:59 08/11/17 10:07 Insulin Aspart (NovoLOG) BEFORE MEALS AND HS SUBQ 08/08/17 11:30 09/07/17 11:29 08/11/17 12:57 Isosorbide Mononitrate (Imdur) 30 mg DAILY ORAL 08/11/17 09:00 09/10/17 08:59 08/11/17 10:08 Pantoprazole (Protonix) 40 mg DAILY ORAL 08/08/17 09:00 09/07/17 08:59 08/11/17 10:02 Phenol/Menthol (Chloraseptic) 1 spray Q3H PRN ORAL SORE THROAT 08/10/17 14:00 09/09/17 13:59 Polyethylene Glycol (Miralax) 17 gm BEDTIME ORAL 08/08/17 21:00 09/07/17 20:59 08/10/17 21:33 Pregabalin (Lyrica) 50 mg Q12HR ORAL 08/08/17 09:00 09/07/17 08:59 08/11/17 10:03 Promethazine HCl/ Codeine (Phenergan with Codeine) 5 ml Q4H PRN ORAL For Cough 08/08/17 15:15 09/07/17 15:14 08/09/17 17:52 Quetiapine Fumarate (SEROquel) 12.5 mg HSPRN PRN ORAL Agitation 08/08/17 12:30 09/07/17 12:29 Simethicone (Mylicon) 80 mg Q6H PRN ORAL Abdominal cramps 08/08/17 07:00 09/07/17 06:59 Allergies: Coded Allergies: No Known Allergies (Unverified , 12/18/16) ROS Limited/Unobtainable: No Constitutional: Reports: no symptoms HEENT: Reports: no symptoms Cardiovascular: Reports: no symptoms Respiratory: Reports: shortness of breath Gastrointestinal/Abdominal: Reports: no symptoms Genitourinary: Reports: no symptoms 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: Reports: no symptoms Subjective 72 YO F admitted with shortness of breath. Now pneumonia and Jose D heart failure. Cover for Int Med-Dr Wright. Objective Last Vital Signs Date Time Temp Pulse Resp B/P (MAP) Pulse Ox O2 Delivery O2 Flow Rate FiO2 08/11/17 12:00 98.1 77 19 101/50 99 Nasal Cannula 2.0 98.1 08/11/17 07:00 28 Laboratory Tests Test 08/11/17 06:05 White Blood Count 7.8 K/UL (4.8-10.8) Red Blood Count 3.74 M/UL (4.20-5.40) L Hemoglobin 10.1 G/DL (12.0-16.0) L Hematocrit 31.6 % (37.0-47.0) L Mean Corpuscular Volume 85 FL (80-99) Mean Corpuscular Hemoglobin 27.0 PG (27.0-31.0) Mean Corpuscular Hemoglobin Concent 31.9 G/DL (32.0-36.0) L Red Cell Distribution Width 14.7 % (11.6-14.8) Platelet Count 178 K/UL (150-450) Mean Platelet Volume 9.1 FL (6.5-10.1) Neutrophils (%) (Auto) 66.1 % (45.0-75.0) Lymphocytes (%) (Auto) 18.0 % (20.0-45.0) L Monocytes (%) (Auto) 9.9 % (1.0-10.0) Eosinophils (%) (Auto) 5.1 % (0.0-3.0) H Basophils (%) (Auto) 1.0 % (0.0-2.0) Sodium Level 141 MMOL/L (136-145) Potassium Level 4.8 MMOL/L (3.5-5.1) Chloride Level 104 MMOL/L (98-107) Carbon Dioxide Level 31 MMOL/L (21-32) Anion Gap 7 mmol/L (5-15) Blood Urea Nitrogen 32 mg/dL (7-18) H Creatinine 1.5 MG/DL (0.55-1.30) H Estimat Glomerular Filtration Rate 34.4 mL/min (>60) Glucose Level 175 MG/DL (74-106) H Calcium Level 9.1 MG/DL (8.5-10.1) Phosphorus Level 4.0 MG/DL (2.5-4.9) Magnesium Level 2.0 MG/DL (1.8-2.4) Total Bilirubin 0.5 MG/DL (0.2-1.0) Aspartate Amino Transf (AST/SGOT) 13 U/L (15-37) L Alanine Aminotransferase (ALT/SGPT) 11 U/L (12-78) L Alkaline Phosphatase 84 U/L (46-116) Pro-B-Type Natriuretic Peptide 5943 pg/mL (0-125) H Total Protein 7.4 G/DL (6.4-8.2) Albumin 2.8 G/DL (3.4-5.0) L Globulin 4.6 g/dL Albumin/Globulin Ratio 0.6 (1.0-2.7) L Microbiology Date/Time Source Procedure Growth Status 08/08/17 20:00 Nasal Nares Influenza Types A,B Antigen (CANDICE) - Final Complete Intake and Output 08/10/17 08/11/17 19:00 07:00 Intake Total 775 ml 300 ml Balance 775 ml 300 ml Intake Oral 720 ml 300 ml IV Total 55 ml # Voids 3 # Bowel Movements 1 Objective General Appearance: WD/WN, no apparent distress, alert EENT: PERRL/EOMI, normal ENT inspection Neck: non-tender, normal alignment, supple, normal inspection Cardiovascular: normal peripheral pulses, normal rate, regular rhythm, no gallop/murmur, no JVD Respiratory/Chest: chest wall non-tender, lungs clear, normal breath sounds, no respiratory distress, no accessory muscle use Abdomen: normal bowel sounds, no organomegaly, no mass, decreased bowel sounds , tender Extremities: normal range of motion Neurologic: chief lifestyle officer 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 Continue ceftriaxone, azithromycin and flagyl. See pulmonary note. (2) Shortness of breath Assessment & Plan: Due to CHF and pneumonia. (3) Acute renal failure (ARF) Assessment & Plan: See nephrology note. (4) CHF exacerbation Assessment & Plan: Last LVEF=25%. See cardiology note. (5) Cardiomyopathy (6) Diabetes mellitus Assessment & Plan: Continue novolog sliding scale. (7) HTN (hypertension) Assessment & Plan: Continue hydralazine and coreg. (8) Cerebral vascular disease (9) Hemiparesis, right (10) Anemia (11) LBBB (left bundle branch block) Assessment & Plan: S/P pacemaker. See Cardiology note. (12) AICD (automatic cardioverter/defibrillator) present (13) Dysphagia Assessment & Plan: Await video swallow Status: not improved JOVANA AGUILAR Aug 11, 2017 16:25
[2017-08-11 20:00] VITALS: BP 101/58
[2017-08-11] MEDS: Atorvastatin 20mg tab ORAL SCH (21:00)
[2017-08-11] MEDS: Miralax 17gm pkt ORAL SCH (21:00)
[2017-08-11] MEDS ORDERED: HydrALAZINE 10mg Tab ORAL SCH (21:00)
--- NOTE | 2017-08-11 22:45 | Progress Note ---
DATE: 08/11/2017 SUBJECTIVE: The patient is calm and cooperative. No behavior issues. She is compliant with medications. She has cognitive impairment and has episodes of anxiety and agitation. MENTAL STATUS EXAMINATION: The patient is alert and oriented times place and situation she is in. Mood is anxious. Affect is constricted. Congruent mood. Thought process is concrete. Thought content, no suicidal or homicidal ideations. ASSESSMENT: 1. Anxiety disorder. 2. Dementia with behavior disturbance. 3. Encephalopathy. PLAN: We will continue current medications. Provide the patient with supportive therapy and reality orientation. We will continue to follow and readjust the medications. Teresa Douglas M.D. DR: Tien JOB#: [id number] CC:
[2017-08-12] VITALS: BP 85/51
[2017-08-12 04:00] VITALS: BP 110/61
[2017-08-12] MEDS: NovoLOG Insulin Flexpen SUBQ SCH ×4 (06:30→21:44)
[2017-08-12 08:00] VITALS: BP 116/41
[2017-08-12 08:09] LABS: BASOPHILS % (AUTO) 0.9 % (0.0-2.0); EOSINOPHILS % (AUTO) 7.3 % (0.0-3.0); HEMATOCRIT 32.6 % (37.0-47.0); HEMOGLOBIN 10.6 G/DL (12.0-16.0); LYMPHOCYTES % (AUTO) 15.1 % (20.0-45.0); MEAN CORPUSCULAR VOLUME 85 FL (80-99); MONOCYTES % (AUTO) 7.9 % (1.0-10.0); NEUTROPHILS % (AUTO) 68.9 % (45.0-75.0); PLATELET COUNT 195 K/UL (150-450); RED BLOOD COUNT 3.84 M/UL (4.20-5.40); RED CELL DISTRIBUTION WIDTH 14.6 % (11.6-14.8); WHITE BLOOD COUNT 9.3 K/UL (4.8-10.8)
--- NOTE | 2017-08-12 08:15 | Pulmonology Progress Note ---
Assessment/Plan Assessment/Plan ASSESSMENT PNA acute systolic and diastolic CHF exacerbation COPD CM CVA with RS hemiplegia Dysphagia AICD mild pulmonary HTN severe MR FAB anemia encephalopathy DM obesity PLAN OF CARE tele O2 HHN prn fup CXR with some improvement in congestion empiric abx, sputum cx if able , ID follows influenza screen test negative a/tussive prn VSS with mild to mod dysphagia, diet as per ST recs ECHO with EF 30-35% and RVSP of 46 c/w mild pulmonary HTN, global LV hypokinesis , severe MR cardio follows medical management of SHF per cardio , on BB, Hydralazine and Isordil , initially IV diuresis, stopped by nephro restarted low dose po monitor cardiorenal parameters, volumes initially diuresis BS management with SS of insulin, renal US negative monitor renal parameters, correct lytes as needed, avoid nephrotoxic creat down to normal Venous Duplex negative monitor counts, anemia w/up noted psych follows, psych medication as per psych recs DVT GI prophylaxis Bowel regimen dc plan per PMD case discussed and evaluated by supervising physician Subjective Allergies: Coded Allergies: No Known Allergies (Unverified , 12/18/16) Subjective denies chest pain, afebrile, no leucocytosis intermittent predominantly dry cough, no hemoptysis creat down to normal Objective Last 24 Hour Vital Signs Date Time Temp Pulse Resp B/P (MAP) Pulse Ox O2 Delivery O2 Flow Rate FiO2 08/12/17 06:55 Nasal Cannula 2.0 28 08/12/17 06:55 99 Nasal Cannula 2.0 28 08/12/17 04:00 97.5 74 22 110/61 98 Nasal Cannula 2.0 97.5 08/12/17 04:00 73 08/12/17 00:00 97.3 82 20 85/51 99 Nasal Cannula 2.0 97.3 08/12/17 00:00 75 08/11/17 21:00 101/58 08/11/17 21:00 83 101/58 08/11/17 20:20 Nasal Cannula 2.0 28 08/11/17 20:20 99 Nasal Cannula 2.0 28 08/11/17 20:00 85 08/11/17 20:00 98.1 83 24 101/58 99 Nasal Cannula 2.0 98.1 08/11/17 16:00 97.9 76 19 100/52 100 Nasal Cannula 2.0 97.9 08/11/17 16:00 76 08/11/17 12:00 98.1 77 19 101/50 99 Nasal Cannula 2.0 98.1 08/11/17 12:00 78 08/11/17 10:08 104/59 08/11/17 10:07 104/59 08/11/17 10:02 89 104/59 Intake and Output 08/11/17 08/12/17 19:00 07:00 Intake Total 480 ml Balance 480 ml Intake Oral 480 ml # Voids 4 # Bowel Movements 2 Objective General Appearance: no acute distress HEENT: normocephalic, atraumatic, anicteric Respiratory/Chest: lungs clear with moderate air exchange , no respiratory distress Cardiovascular: normal rate - V pacing on tele Abdomen: normal bowel sounds, soft, non tender, obese Extremities: other - trace edema BLE 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: alert, responsive, R side hemiplegia Laboratory Tests 08/12/17 07:38: White Blood Count 9.3, Red Blood Count 3.84L, Hemoglobin 10.6L, Hematocrit 32.6L , Mean Corpuscular Volume 85, Mean Corpuscular Hemoglobin 27.5, Mean Corpuscular Hemoglobin Concent 32.4, Red Cell Distribution Width 14.6, Platelet Count 195, Mean Platelet Volume 9.3, Neutrophils (%) (Auto) 68.9, Lymphocytes (% ) (Auto) 15.1L, Monocytes (%) (Auto) 7.9, Eosinophils (%) (Auto) 7.3H, Basophils (%) (Auto) 0.9, Sodium Level [Pending], Potassium Level [Pending], Chloride Level [Pending], Carbon Dioxide Level [Pending], Blood Urea Nitrogen [ Pending], Creatinine [Pending], Estimat Glomerular Filtration Rate [Pending], Glucose Level [Pending], Calcium Level [Pending] Current Medications Medications (Trade) Dose Ordered Sig/[place] Route PRN Reason Start Time Stop Time Status Last Admin Dose Admin Acetaminophen (Tylenol) 500 mg Q4H PRN ORAL Mild Pain/Temp > 100.5 08/08/17 07:00 09/07/17 06:59 08/09/17 12:55 Albuterol/ Ipratropium (Albuterol/ Ipratropium) 3 ml Q4H PRN HHN Shortness of Breath 08/08/17 16:30 08/13/17 16:29 08/09/17 20:16 Aspirin (Ecotrin) 81 mg DAILY ORAL 08/08/17 09:00 09/07/17 08:59 08/11/17 10:03 Atorvastatin Calcium (Lipitor) 40 mg BEDTIME ORAL 08/08/17 21:00 09/07/17 20:59 08/11/17 21:00 Azithromycin (Zithromax) 250 mg DAILY ORAL 08/08/17 09:00 08/15/17 08:59 08/11/17 10:02 Carvedilol (Coreg) 3.125 mg EVERY 12 HOURS ORAL 08/09/17 22:00 09/08/17 21:59 08/11/17 21:00 Ceftriaxone Sodium 1 gm/ Sodium Chloride 55 ml @ 110 mls/hr Q24H IVPB 08/08/17 10:00 08/15/17 09:59 08/11/17 10:03 Clopidogrel Bisulfate (Plavix) 75 mg DAILY ORAL 08/08/17 09:00 09/07/17 08:59 08/11/17 10:03 Dextrose (Dextrose 50%) STAT PRN IV Hypoglycemia 08/08/17 07:00 09/07/17 06:59 Docusate Sodium (Colace) 100 mg THREE TIMES A DAY ORAL 08/09/17 13:30 09/08/17 13:29 08/11/17 17:39 Fexofenadine HCl (Rebecca) 60 mg TWICE A DAY ORAL 08/08/17 10:00 09/07/17 09:59 08/11/17 17:39 Furosemide (Lasix) 40 mg DAILY ORAL 08/11/17 09:15 09/10/17 09:14 08/11/17 10:04 Hydralazine HCl (Apresoline) 10 mg Q12HR ORAL 08/11/17 09:00 09/10/17 08:59 08/11/17 21:00 Insulin Aspart (NovoLOG) BEFORE MEALS AND HS SUBQ 08/08/17 11:30 09/07/17 11:29 08/12/17 06:30 Isosorbide Mononitrate (Imdur) 30 mg DAILY ORAL 08/11/17 09:00 09/10/17 08:59 08/11/17 10:08 Pantoprazole (Protonix) 40 mg DAILY ORAL 08/08/17 09:00 09/07/17 08:59 08/11/17 10:02 Phenol/Menthol (Chloraseptic) 1 spray Q3H PRN ORAL SORE THROAT 08/10/17 14:00 09/09/17 13:59 Polyethylene Glycol (Miralax) 17 gm BEDTIME ORAL 08/08/17 21:00 09/07/17 20:59 08/10/17 21:33 Pregabalin (Lyrica) 50 mg Q12HR ORAL 08/08/17 09:00 09/07/17 08:59 08/11/17 21:00 Promethazine HCl/ Codeine (Phenergan with Codeine) 5 ml Q4H PRN ORAL For Cough 08/08/17 15:15 09/07/17 15:14 08/09/17 17:52 Quetiapine Fumarate (SEROquel) 12.5 mg HSPRN PRN ORAL Agitation 08/08/17 12:30 09/07/17 12:29 Simethicone (Mylicon) 80 mg Q6H PRN ORAL Abdominal cramps 08/08/17 07:00 09/07/17 06:59 Sari Carmoan NP (Vanchtein) Aug 12, 2017 08:15
[2017-08-12 08:33] LABS: ANION GAP 2 mmol/L (5-15); BLOOD UREA NITROGEN 26 mg/dL (7-18); CALCIUM 9.3 MG/DL (8.5-10.1); CARBON DIOXIDE 34 MMOL/L (21-32); CHLORIDE 104 MMOL/L (98-107); CREATININE 1.2 MG/DL (0.55-1.30); POTASSIUM 4.5 MMOL/L (3.5-5.1); SODIUM 140 MMOL/L (136-145)
[2017-08-12] MEDS: Furosemide 40mg tab ORAL SCH (08:44)
[2017-08-12] MEDS: Imdur 30mg tab ORAL SCH (08:44)
[2017-08-12] MEDS: Aspirin EC 81mg tab ORAL SCH (08:45)
[2017-08-12] MEDS: Azithromycin 250mg tab ORAL SCH (08:45)
[2017-08-12] MEDS: Acetaminophen 500mg (ES) tab ORAL PRN (08:45)
[2017-08-12] MEDS: Lyrica 50mg cap ORAL SCH ×2 (08:46→21:27)
[2017-08-12] MEDS: HydrALAZINE 10mg Tab ORAL SCH ×2 (08:47→21:00)
[2017-08-12] MEDS: Docusate 100mg cap ORAL SCH ×3 (08:47→18:17)
[2017-08-12] MEDS ORDERED: Imdur 30mg tab ORAL SCH (09:00)
[2017-08-12] MEDS: cefTRIAXone 1 GM in NS 55 ML IVPB SCH (10:34)
--- NOTE | 2017-08-12 10:41 | General Progress Note ---
Assessment/Plan Assessment/Plan 1. Anemia due to underlying chronic disease. --> Anemia workup reviewed. --> Iron 24, TIBC 284, B12 690, Folate 10.9 --> Hemoglobin goal is above 7. Hgb levels have been improving. Now >10 --> No blood transfusion needed. --> Continue to closely monitor. 2. Anemia of iron deficiency. Iron low 24. Currently, does not appear to be severe iron deficiency. --> Continue to closely monitor. --> Hemoglobin goal is above 7 and anemia workup has been reviewed. Reticulocyte count 1.9 --> consider iron treatment 3. Cervical cancer, status post total abdominal hysterectomy 4. Pneumonia. She is on broad-spectrum antibiotics as per Pulmonary team. 5. Pulmonary hypertension. 6. Obesity. 7. Diabetes mellitus. 8. Encephalopathy. Subjective Date patient seen: Aug 11, 2017 Constitutional: Denies: no symptoms, chills, diaphoresis, fever, malaise, weakness, other HEENT: Denies: no symptoms, eye pain, blurred vision, tearing, double vision, ear pain, ear discharge, nose pain, nose congestion, throat pain, throat swelling, mouth pain, mouth swelling, other Cardiovascular: Denies: no symptoms, chest pain, edema, irregular heart rate, lightheadedness, palpitations, syncope, other Respiratory: Denies: no symptoms, cough, orthopnea, shortness of breath, SOB with excertion, SOB at rest, sputum, stridor, wheezing, other Gastrointestinal/Abdominal: Denies: no symptoms, abdomen distended, abdominal pain, black stools, tarry stools, blood in stool, constipated, diarrhea, difficulty swallowing, nausea, poor appetite, poor fluid intake, rectal bleeding , vomiting, other Genitourinary: Denies: no symptoms, burning, discharge, frequency, flank pain, hematuria, incontinence, pain, urgency, other 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: Denies: no symptoms, anxiety, depressed, emotional problems, headache, numbness, paresthesia, pre-existing deficit, seizure, tingling, tremors, weakness, other Hematologic/Lymphatic: Reports: anemia Allergies: Coded Allergies: No Known Allergies (Unverified , 12/18/16) Subjective Hemoglobin improving. No acute events. Objective Last 24 Hour Vital Signs Date Time Temp Pulse Resp B/P (MAP) Pulse Ox O2 Delivery O2 Flow Rate FiO2 08/12/17 08:47 116/41 08/12/17 08:47 73 114/41 08/12/17 08:44 116/41 08/12/17 08:00 96.9 80 22 116/41 98 Nasal Cannula 2.0 96.9 08/12/17 06:55 Nasal Cannula 2.0 28 08/12/17 06:55 99 Nasal Cannula 2.0 28 08/12/17 04:00 97.5 74 22 110/61 98 Nasal Cannula 2.0 97.5 08/12/17 04:00 73 08/12/17 00:00 97.3 82 20 85/51 99 Nasal Cannula 2.0 97.3 08/12/17 00:00 75 08/11/17 21:00 101/58 08/11/17 21:00 83 101/58 08/11/17 20:20 Nasal Cannula 2.0 28 08/11/17 20:20 99 Nasal Cannula 2.0 28 08/11/17 20:00 85 08/11/17 20:00 98.1 83 24 101/58 99 Nasal Cannula 2.0 98.1 08/11/17 16:00 97.9 76 19 100/52 100 Nasal Cannula 2.0 97.9 08/11/17 16:00 76 08/11/17 12:00 98.1 77 19 101/50 99 Nasal Cannula 2.0 98.1 08/11/17 12:00 78 Intake and Output 08/11/17 08/12/17 19:00 07:00 Intake Total 480 ml Output Total 700 ml Balance 480 ml -700 ml Intake Oral 480 ml Output Urine Total 700 ml # Voids 4 # Bowel Movements 2 Labs Test 08/10/17 08:15 08/11/17 06:05 08/12/17 07:38 White Blood Count 8.5 K/UL (4.8-10.8) 7.8 K/UL (4.8-10.8) 9.3 K/UL (4.8-10.8) Red Blood Count 3.62 M/UL (4.20-5.40) 3.74 M/UL (4.20-5.40) 3.84 M/UL (4.20-5.40) Hemoglobin 9.8 G/DL (12.0-16.0) 10.1 G/DL (12.0-16.0) 10.6 G/DL (12.0-16.0) Hematocrit 30.8 % (37.0-47.0) 31.6 % (37.0-47.0) 32.6 % (37.0-47.0) Mean Corpuscular Volume 85 FL (80-99) 85 FL (80-99) 85 FL (80-99) Mean Corpuscular Hemoglobin 27.2 PG (27.0-31.0) 27.0 PG (27.0-31.0) 27.5 PG (27.0-31.0) Mean Corpuscular Hemoglobin Concent 32.0 G/DL (32.0-36.0) 31.9 G/DL (32.0-36.0) 32.4 G/DL (32.0-36.0) Red Cell Distribution Width 15.0 % (11.6-14.8) 14.7 % (11.6-14.8) 14.6 % (11.6-14.8) Platelet Count 188 K/UL (150-450) 178 K/UL (150-450) 195 K/UL (150-450) Mean Platelet Volume 9.4 FL (6.5-10.1) 9.1 FL (6.5-10.1) 9.3 FL (6.5-10.1) Neutrophils (%) (Auto) 63.7 % (45.0-75.0) 66.1 % (45.0-75.0) 68.9 % (45.0-75.0) Lymphocytes (%) (Auto) 18.1 % (20.0-45.0) 18.0 % (20.0-45.0) 15.1 % (20.0-45.0) Monocytes (%) (Auto) 11.6 % (1.0-10.0) 9.9 % (1.0-10.0) 7.9 % (1.0-10.0) Eosinophils (%) (Auto) 6.0 % (0.0-3.0) 5.1 % (0.0-3.0) 7.3 % (0.0-3.0) Basophils (%) (Auto) 0.6 % (0.0-2.0) 1.0 % (0.0-2.0) 0.9 % (0.0-2.0) Sodium Level 139 MMOL/L (136-145) 141 MMOL/L (136-145) 140 MMOL/L (136-145) Potassium Level 4.4 MMOL/L (3.5-5.1) 4.8 MMOL/L (3.5-5.1) 4.5 MMOL/L (3.5-5.1) Chloride Level 104 MMOL/L (98-107) 104 MMOL/L (98-107) 104 MMOL/L (98-107) Carbon Dioxide Level 31 MMOL/L (21-32) 31 MMOL/L (21-32) 34 MMOL/L (21-32) Anion Gap 4 mmol/L (5-15) 7 mmol/L (5-15) 2 mmol/L (5-15) Blood Urea Nitrogen 38 mg/dL (7-18) 32 mg/dL (7-18) 26 mg/dL (7-18) Creatinine 1.8 MG/DL (0.55-1.30) 1.5 MG/DL (0.55-1.30) 1.2 MG/DL (0.55-1.30) Estimat Glomerular Filtration Rate 27.8 mL/min (>60) 34.4 mL/min (>60) 44.4 mL/min (>60) Glucose Level 139 MG/DL (74-106) 175 MG/DL (74-106) 156 MG/DL (74-106) Calcium Level 8.9 MG/DL (8.5-10.1) 9.1 MG/DL (8.5-10.1) 9.3 MG/DL (8.5-10.1) Troponin I 0.023 ng/mL (0.000-0.056) Pro-B-Type Natriuretic Peptide 2347 pg/mL (0-125) 5943 pg/mL (0-125) Phosphorus Level 4.0 MG/DL (2.5-4.9) Magnesium Level 2.0 MG/DL (1.8-2.4) Total Bilirubin 0.5 MG/DL (0.2-1.0) Aspartate Amino Transf (AST/SGOT) 13 U/L (15-37) Alanine Aminotransferase (ALT/SGPT) 11 U/L (12-78) Alkaline Phosphatase 84 U/L (46-116) Total Protein 7.4 G/DL (6.4-8.2) Albumin 2.8 G/DL (3.4-5.0) Globulin 4.6 g/dL Albumin/Globulin Ratio 0.6 (1.0-2.7) Laboratory Tests 08/12/17 07:38: White Blood Count 9.3, Red Blood Count 3.84L, Hemoglobin 10.6L, Hematocrit 32.6L , Mean Corpuscular Volume 85, Mean Corpuscular Hemoglobin 27.5, Mean Corpuscular Hemoglobin Concent 32.4, Red Cell Distribution Width 14.6, Platelet Count 195, Mean Platelet Volume 9.3, Neutrophils (%) (Auto) 68.9, Lymphocytes (% ) (Auto) 15.1L, Monocytes (%) (Auto) 7.9, Eosinophils (%) (Auto) 7.3H, Basophils (%) (Auto) 0.9, Sodium Level 140, Potassium Level 4.5, Chloride Level 104, Carbon Dioxide Level 34H, Anion Gap 2L, Blood Urea Nitrogen 26H, Creatinine 1.2, Estimat Glomerular Filtration Rate 44.4, Glucose Level 156H, Calcium Level 9.3 Height (Feet): 5 Height (Inches): 3.00 Weight (Pounds): 192 General Appearance: no apparent distress Cardiovascular: normal rate, regular rhythm Respiratory/Chest: lungs clear Daljit Miles Aug 12, 2017 10:41
[2017-08-12 12:00] VITALS: BP 96/46
[2017-08-12] MEDS ORDERED: Albuterol/Ipratropium 3ml neb HHN PRN (12:30)
--- NOTE | 2017-08-12 13:42 | Internal Med Progress Note ---
Subjective Date of Service: Aug 12, 2017 Physician Name Jovana Aguilar Attending Physician Brendan Wright MD Current Medications Medications (Trade) Dose Ordered Sig/[place] Route PRN Reason Start Time Stop Time Status Last Admin Dose Admin Acetaminophen (Tylenol) 500 mg Q4H PRN ORAL Mild Pain/Temp > 100.5 08/08/17 07:00 09/07/17 06:59 08/12/17 08:45 Albuterol/ Ipratropium (Albuterol/ Ipratropium) 3 ml Q4H PRN HHN Shortness of Breath 08/12/17 12:30 08/17/17 23:59 Aspirin (Ecotrin) 81 mg DAILY ORAL 08/08/17 09:00 09/07/17 08:59 08/12/17 08:45 Atorvastatin Calcium (Lipitor) 40 mg BEDTIME ORAL 08/08/17 21:00 09/07/17 20:59 08/11/17 21:00 Azithromycin (Zithromax) 250 mg DAILY ORAL 08/08/17 09:00 08/15/17 08:59 08/12/17 08:45 Carvedilol (Coreg) 3.125 mg EVERY 12 HOURS ORAL 08/09/17 22:00 09/08/17 21:59 08/12/17 08:47 Ceftriaxone Sodium 1 gm/ Sodium Chloride 55 ml @ 110 mls/hr Q24H IVPB 08/08/17 10:00 08/15/17 09:59 08/12/17 10:34 Clopidogrel Bisulfate (Plavix) 75 mg DAILY ORAL 08/08/17 09:00 09/07/17 08:59 08/12/17 08:48 Dextrose (Dextrose 50%) STAT PRN IV Hypoglycemia 08/08/17 07:00 09/07/17 06:59 Docusate Sodium (Colace) 100 mg THREE TIMES A DAY ORAL 08/09/17 13:30 09/08/17 13:29 08/12/17 13:18 Fexofenadine HCl (Rebecca) 60 mg TWICE A DAY ORAL 08/08/17 10:00 09/07/17 09:59 08/12/17 08:47 Furosemide (Lasix) 40 mg DAILY ORAL 08/11/17 09:15 09/10/17 09:14 08/12/17 08:44 Hydralazine HCl (Apresoline) 10 mg Q12HR ORAL 08/11/17 09:00 09/10/17 08:59 08/12/17 08:47 Insulin Aspart (NovoLOG) BEFORE MEALS AND HS SUBQ 08/08/17 11:30 09/07/17 11:29 08/12/17 11:35 Isosorbide Mononitrate (Imdur) 30 mg DAILY ORAL 08/11/17 09:00 09/10/17 08:59 08/12/17 08:44 Pantoprazole (Protonix) 40 mg DAILY ORAL 08/08/17 09:00 09/07/17 08:59 08/12/17 08:44 Phenol/Menthol (Chloraseptic) 1 spray Q3H PRN ORAL SORE THROAT 08/10/17 14:00 09/09/17 13:59 Polyethylene Glycol (Miralax) 17 gm BEDTIME ORAL 08/08/17 21:00 09/07/17 20:59 08/10/17 21:33 Pregabalin (Lyrica) 50 mg Q12HR ORAL 08/08/17 09:00 09/07/17 08:59 08/12/17 08:46 Promethazine HCl/ Codeine (Phenergan with Codeine) 5 ml Q4H PRN ORAL For Cough 08/08/17 15:15 09/07/17 15:14 08/09/17 17:52 Quetiapine Fumarate (SEROquel) 12.5 mg HSPRN PRN ORAL Agitation 08/08/17 12:30 09/07/17 12:29 Simethicone (Mylicon) 80 mg Q6H PRN ORAL Abdominal cramps 08/08/17 07:00 09/07/17 06:59 Allergies: Coded Allergies: No Known Allergies (Unverified , 12/18/16) ROS Limited/Unobtainable: No Constitutional: Reports: no symptoms HEENT: Reports: no symptoms Cardiovascular: Reports: no symptoms Respiratory: Reports: shortness of breath Gastrointestinal/Abdominal: Reports: no symptoms Genitourinary: Reports: no symptoms 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: Reports: no symptoms Subjective 72 YO F admitted with shortness of breath. Now pneumonia and Jose D heart failure. Cover for Int Med-Dr Wright. Objective Last Vital Signs Date Time Temp Pulse Resp B/P (MAP) Pulse Ox O2 Delivery O2 Flow Rate FiO2 08/12/17 12:00 79 08/12/17 12:00 97.9 20 96/46 97 Nasal Cannula 2.0 97.9 08/12/17 06:55 28 Laboratory Tests Test 08/12/17 07:38 White Blood Count 9.3 K/UL (4.8-10.8) Red Blood Count 3.84 M/UL (4.20-5.40) L Hemoglobin 10.6 G/DL (12.0-16.0) L Hematocrit 32.6 % (37.0-47.0) L Mean Corpuscular Volume 85 FL (80-99) Mean Corpuscular Hemoglobin 27.5 PG (27.0-31.0) Mean Corpuscular Hemoglobin Concent 32.4 G/DL (32.0-36.0) Red Cell Distribution Width 14.6 % (11.6-14.8) Platelet Count 195 K/UL (150-450) Mean Platelet Volume 9.3 FL (6.5-10.1) Neutrophils (%) (Auto) 68.9 % (45.0-75.0) Lymphocytes (%) (Auto) 15.1 % (20.0-45.0) L Monocytes (%) (Auto) 7.9 % (1.0-10.0) Eosinophils (%) (Auto) 7.3 % (0.0-3.0) H Basophils (%) (Auto) 0.9 % (0.0-2.0) Sodium Level 140 MMOL/L (136-145) Potassium Level 4.5 MMOL/L (3.5-5.1) Chloride Level 104 MMOL/L (98-107) Carbon Dioxide Level 34 MMOL/L (21-32) H Anion Gap 2 mmol/L (5-15) L Blood Urea Nitrogen 26 mg/dL (7-18) H Creatinine 1.2 MG/DL (0.55-1.30) Estimat Glomerular Filtration Rate 44.4 mL/min (>60) Glucose Level 156 MG/DL (74-106) H Calcium Level 9.3 MG/DL (8.5-10.1) Intake and Output 08/11/17 08/12/17 19:00 07:00 Intake Total 480 ml Output Total 700 ml Balance 480 ml -700 ml Intake Oral 480 ml Output Urine Total 700 ml # Voids 4 # Bowel Movements 2 Objective General Appearance: WD/WN, no apparent distress, alert EENT: PERRL/EOMI, normal ENT inspection Neck: non-tender, normal alignment, supple, normal inspection Cardiovascular: normal peripheral pulses, normal rate, regular rhythm, no gallop/murmur, no JVD Respiratory/Chest: chest wall non-tender, lungs clear, normal breath sounds, no respiratory distress, no accessory muscle use Abdomen: normal bowel sounds, no organomegaly, no mass, decreased bowel sounds , tender Extremities: normal range of motion 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 Continue ceftriaxone, azithromycin and flagyl. See pulmonary note. (2) Shortness of breath Assessment & Plan: Due to CHF and pneumonia. (3) Acute renal failure (ARF) Assessment & Plan: See nephrology note. (4) CHF exacerbation Assessment & Plan: Last LVEF=25%. See cardiology note. (5) Cardiomyopathy (6) Diabetes mellitus Assessment & Plan: Continue novolog sliding scale. (7) HTN (hypertension) Assessment & Plan: Continue hydralazine and coreg. (8) Cerebral vascular disease (9) Hemiparesis, right (10) Anemia (11) LBBB (left bundle branch block) Assessment & Plan: S/P pacemaker. See Cardiology note. (12) AICD (automatic cardioverter/defibrillator) present (13) Dysphagia Assessment & Plan: Await video swallow Status: progressing JOVANA AGUILAR Aug 12, 2017 13:42
--- NOTE | 2017-08-12 14:25 | Cardiac Electrophysiology PN ---
Assessment/Plan Assessment/Plan 1. Status post Biotronic biventricular defibrillator implantation. Interrogated the device and showed Nl fx. Already has appointment with me in office for follow up. 2. CHF exacerbation with BNP >2600 . EF 25%. On Coreg 3.125 bid, Isordil 10 bid , hydralazine 10 bid. On Lasix 40 po daily. In view of renal failure, we will avoid JAROCHO inhibitors. 3. Hypertension. Continue current regimen 4. Renal failure with a BUN of 34 and creatinine of 2.1. Cr improved to 1.2. Avoid Aldactone, JAROCHO inhibitor, and angiotensin receptor dayna at this time. 5. PNA on Abx per Dr. Boo WALLACE RN Subjective Subjective No chest pain or SOB.Comfortable in NAD. Objective Last 24 Hour Vital Signs Date Time Temp Pulse Resp B/P (MAP) Pulse Ox O2 Delivery O2 Flow Rate FiO2 08/12/17 12:00 79 08/12/17 12:00 97.9 74 20 96/46 97 Nasal Cannula 2.0 97.9 08/12/17 08:47 116/41 08/12/17 08:47 73 114/41 08/12/17 08:44 116/41 08/12/17 08:00 96.9 80 22 116/41 98 Nasal Cannula 2.0 96.9 08/12/17 08:00 92 08/12/17 06:55 Nasal Cannula 2.0 28 08/12/17 06:55 99 Nasal Cannula 2.0 28 08/12/17 04:00 97.5 74 22 110/61 98 Nasal Cannula 2.0 97.5 08/12/17 04:00 73 08/12/17 00:00 97.3 82 20 85/51 99 Nasal Cannula 2.0 97.3 08/12/17 00:00 75 08/11/17 21:00 101/58 08/11/17 21:00 83 101/58 08/11/17 20:20 Nasal Cannula 2.0 28 08/11/17 20:20 99 Nasal Cannula 2.0 28 08/11/17 20:00 85 08/11/17 20:00 98.1 83 24 101/58 99 Nasal Cannula 2.0 98.1 08/11/17 16:00 97.9 76 19 100/52 100 Nasal Cannula 2.0 97.9 08/11/17 16:00 76 Intake and Output 08/11/17 08/12/17 19:00 07:00 Intake Total 480 ml Output Total 700 ml Balance 480 ml -700 ml Intake Oral 480 ml Output Urine Total 700 ml # Voids 4 # Bowel Movements 2 Laboratory Tests Test 08/12/17 07:38 White Blood Count 9.3 K/UL (4.8-10.8) Red Blood Count 3.84 M/UL (4.20-5.40) L Hemoglobin 10.6 G/DL (12.0-16.0) L Hematocrit 32.6 % (37.0-47.0) L Mean Corpuscular Volume 85 FL (80-99) Mean Corpuscular Hemoglobin 27.5 PG (27.0-31.0) Mean Corpuscular Hemoglobin Concent 32.4 G/DL (32.0-36.0) Red Cell Distribution Width 14.6 % (11.6-14.8) Platelet Count 195 K/UL (150-450) Mean Platelet Volume 9.3 FL (6.5-10.1) Neutrophils (%) (Auto) 68.9 % (45.0-75.0) Lymphocytes (%) (Auto) 15.1 % (20.0-45.0) L Monocytes (%) (Auto) 7.9 % (1.0-10.0) Eosinophils (%) (Auto) 7.3 % (0.0-3.0) H Basophils (%) (Auto) 0.9 % (0.0-2.0) Sodium Level 140 MMOL/L (136-145) Potassium Level 4.5 MMOL/L (3.5-5.1) Chloride Level 104 MMOL/L (98-107) Carbon Dioxide Level 34 MMOL/L (21-32) H Anion Gap 2 mmol/L (5-15) L Blood Urea Nitrogen 26 mg/dL (7-18) H Creatinine 1.2 MG/DL (0.55-1.30) Estimat Glomerular Filtration Rate 44.4 mL/min (>60) Glucose Level 156 MG/DL (74-106) H Calcium Level 9.3 MG/DL (8.5-10.1) Objective HEAD AND NECK: No JVD. LUNGS: Clear. CARDIOVASCULAR: Regular S1 and S2 with no gallop or murmur. ICD in the left subclavian intact. ABDOMEN: Soft. EXTREMITIES: 1+ pitting edema. DELORES CHAPARRO Aug 12, 2017 14:25
--- NOTE | 2017-08-12 14:36 | General Progress Note ---
Assessment/Plan Problem List: (1) AICD (automatic cardioverter/defibrillator) present ICD Codes: Z95.810 - Presence of automatic (implantable) cardiac defibrillator SNOMED: 02289053, 309156248 (2) CHF exacerbation ICD Codes: I50.9 - Heart failure, unspecified SNOMED: 52047034 (3) Iron deficiency anemia ICD Codes: D50.9 - Iron deficiency anemia, unspecified SNOMED: 70033724 (4) Intractable abdominal pain ICD Codes: R10.9 - Unspecified abdominal pain SNOMED: 27884055, 030188717 (5) Diabetes mellitus ICD Codes: E11.9 - Type 2 diabetes mellitus without complications SNOMED: 32132447 (6) EF 25% Assessment/Plan hepatomegaly with fatty infiltration. s/p normal EGD in 2017/normal colonoscopy in 2014, see report. EF - 20% chronic abdominal pain anemia work up reviewed >> iron deficiency >> Venofer ST evaluation reviewed >> LIQUIFIED PUREED SOUP DIET LIKE THIN AND NECTAR THICK CONSISTENCIES (WARM BROTH OR CREAMY SOUPS) WITH POSTED ASPIRATION PRECAUTIONS. symptomatic treatment pain mgmt prn transfusion bowel regime ppi simethicone prn pt on plavix repeat colonoscopy 2019 Subjective ROS Limited/Unobtainable: Yes Allergies: Coded Allergies: No Known Allergies (Unverified , 12/18/16) Subjective no GIB Objective Last 24 Hour Vital Signs Date Time Temp Pulse Resp B/P (MAP) Pulse Ox O2 Delivery O2 Flow Rate FiO2 08/12/17 12:00 79 08/12/17 12:00 97.9 74 20 96/46 97 Nasal Cannula 2.0 97.9 08/12/17 08:47 116/41 08/12/17 08:47 73 114/41 08/12/17 08:44 116/41 08/12/17 08:00 96.9 80 22 116/41 98 Nasal Cannula 2.0 96.9 08/12/17 08:00 92 08/12/17 06:55 Nasal Cannula 2.0 28 08/12/17 06:55 99 Nasal Cannula 2.0 28 08/12/17 04:00 97.5 74 22 110/61 98 Nasal Cannula 2.0 97.5 08/12/17 04:00 73 08/12/17 00:00 97.3 82 20 85/51 99 Nasal Cannula 2.0 97.3 08/12/17 00:00 75 08/11/17 21:00 101/58 08/11/17 21:00 83 101/58 08/11/17 20:20 Nasal Cannula 2.0 28 08/11/17 20:20 99 Nasal Cannula 2.0 28 08/11/17 20:00 85 08/11/17 20:00 98.1 83 24 101/58 99 Nasal Cannula 2.0 98.1 08/11/17 16:00 97.9 76 19 100/52 100 Nasal Cannula 2.0 97.9 08/11/17 16:00 76 Intake and Output 08/11/17 08/12/17 19:00 07:00 Intake Total 480 ml Output Total 700 ml Balance 480 ml -700 ml Intake Oral 480 ml Output Urine Total 700 ml # Voids 4 # Bowel Movements 2 Laboratory Tests 08/12/17 07:38: White Blood Count 9.3, Red Blood Count 3.84L, Hemoglobin 10.6L, Hematocrit 32.6L , Mean Corpuscular Volume 85, Mean Corpuscular Hemoglobin 27.5, Mean Corpuscular Hemoglobin Concent 32.4, Red Cell Distribution Width 14.6, Platelet Count 195, Mean Platelet Volume 9.3, Neutrophils (%) (Auto) 68.9, Lymphocytes (% ) (Auto) 15.1L, Monocytes (%) (Auto) 7.9, Eosinophils (%) (Auto) 7.3H, Basophils (%) (Auto) 0.9, Sodium Level 140, Potassium Level 4.5, Chloride Level 104, Carbon Dioxide Level 34H, Anion Gap 2L, Blood Urea Nitrogen 26H, Creatinine 1.2, Estimat Glomerular Filtration Rate 44.4, Glucose Level 156H, Calcium Level 9.3 Height (Feet): 5 Height (Inches): 3.00 Weight (Pounds): 192 General Appearance: no apparent distress EENT: normal ENT inspection Neck: supple Cardiovascular: normal rate Respiratory/Chest: decreased breath sounds Abdomen: normal bowel sounds, non tender, soft Extremities: non-tender BIN TRINIDAD Aug 12, 2017 14:36
[2017-08-12 16:00] VITALS: BP 88/29
[2017-08-12 20:00] VITALS: BP 115/58
[2017-08-12] MEDS: Atorvastatin 20mg tab ORAL SCH (21:25)
[2017-08-12] MEDS: Miralax 17gm pkt ORAL SCH (21:27)
--- NOTE | 2017-08-12 23:51 | General Progress Note ---
Assessment/Plan Assessment/Plan 1. Anemia due to underlying chronic disease. --> Anemia workup reviewed. --> Iron 24, TIBC 284, B12 690, Folate 10.9 --> Hemoglobin goal is above 7. Hgb levels have been improving. Now >10 --> Blood transfusion not required at this time. Cont to trend and monitor cbc. 2. Anemia of iron deficiency. --> Iron low 24. Currently, does not appear to be severe iron deficiency. --> Continue to closely monitor. --> Hemoglobin goal is above 7 and anemia workup has been reviewed. --> Reticulocyte count 1.9 --> consider iron treatment 3. Cervical cancer, status post total abdominal hysterectomy 4. Pneumonia. --> She is on broad-spectrum antibiotics as per Pulmonary team. --> Monitor for improvement. 5. Pulmonary hypertension. 6. Obesity. 7. Diabetes mellitus. 8. Encephalopathy. Subjective Date patient seen: Aug 12, 2017 Constitutional: Denies: no symptoms, chills, diaphoresis, fever, malaise, weakness, other HEENT: Denies: no symptoms, eye pain, blurred vision, tearing, double vision, ear pain, ear discharge, nose pain, nose congestion, throat pain, throat swelling, mouth pain, mouth swelling, other Cardiovascular: Denies: no symptoms, chest pain, edema, irregular heart rate, lightheadedness, palpitations, syncope, other Respiratory: Denies: no symptoms, cough, orthopnea, shortness of breath, SOB with excertion, SOB at rest, sputum, stridor, wheezing, other Gastrointestinal/Abdominal: Denies: no symptoms, abdomen distended, abdominal pain, black stools, tarry stools, blood in stool, constipated, diarrhea, difficulty swallowing, nausea, poor appetite, poor fluid intake, rectal bleeding , vomiting, other Genitourinary: Denies: no symptoms, burning, discharge, frequency, flank pain, hematuria, incontinence, pain, urgency, other 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: Denies: no symptoms, anxiety, depressed, emotional problems, headache, numbness, paresthesia, pre-existing deficit, seizure, tingling, tremors, weakness, other Hematologic/Lymphatic: Reports: anemia Allergies: Coded Allergies: No Known Allergies (Unverified , 12/18/16) Subjective No respiratory distress. H/H stable. Objective Last 24 Hour Vital Signs Date Time Temp Pulse Resp B/P (MAP) Pulse Ox O2 Delivery O2 Flow Rate FiO2 08/12/17 21:42 81 115/55 08/12/17 21:00 115/55 08/12/17 20:04 Nasal Cannula 2.0 28 08/12/17 20:04 96 Nasal Cannula 2.0 28 08/12/17 20:00 82 08/12/17 20:00 97.7 81 17 115/58 98 97.7 08/12/17 16:00 96.9 76 20 88/29 97 Nasal Cannula 2.0 96.9 08/12/17 16:00 76 08/12/17 12:00 79 08/12/17 12:00 97.9 74 20 96/46 97 Nasal Cannula 2.0 97.9 08/12/17 08:47 116/41 08/12/17 08:47 73 114/41 08/12/17 08:44 116/41 08/12/17 08:00 96.9 80 22 116/41 98 Nasal Cannula 2.0 96.9 08/12/17 08:00 92 08/12/17 06:55 Nasal Cannula 2.0 28 08/12/17 06:55 99 Nasal Cannula 2.0 28 08/12/17 04:00 97.5 74 22 110/61 98 Nasal Cannula 2.0 97.5 08/12/17 04:00 73 08/12/17 00:00 97.3 82 20 85/51 99 Nasal Cannula 2.0 97.3 08/12/17 00:00 75 Intake and Output 08/11/17 08/12/17 19:00 07:00 Intake Total 480 ml Output Total 700 ml Balance 480 ml -700 ml Intake Oral 480 ml Output Urine Total 700 ml # Voids 4 # Bowel Movements 2 Laboratory Tests 08/12/17 07:38: White Blood Count 9.3, Red Blood Count 3.84L, Hemoglobin 10.6L, Hematocrit 32.6L , Mean Corpuscular Volume 85, Mean Corpuscular Hemoglobin 27.5, Mean Corpuscular Hemoglobin Concent 32.4, Red Cell Distribution Width 14.6, Platelet Count 195, Mean Platelet Volume 9.3, Neutrophils (%) (Auto) 68.9, Lymphocytes (% ) (Auto) 15.1L, Monocytes (%) (Auto) 7.9, Eosinophils (%) (Auto) 7.3H, Basophils (%) (Auto) 0.9, Sodium Level 140, Potassium Level 4.5, Chloride Level 104, Carbon Dioxide Level 34H, Anion Gap 2L, Blood Urea Nitrogen 26H, Creatinine 1.2, Estimat Glomerular Filtration Rate 44.4, Glucose Level 156H, Calcium Level 9.3 08/12/17 17:15: Stool Occult Blood [Pending] Height (Feet): 5 Height (Inches): 3.00 Weight (Pounds): 192 Daljit Miles Aug 12, 2017 23:51
[2017-08-13] VITALS: BP 117/60
[2017-08-13 04:00] VITALS: BP 138/75
[2017-08-13] MEDS: NovoLOG Insulin Flexpen SUBQ SCH ×4 (06:55→20:26)
[2017-08-13 08:00] VITALS: BP 118/52
[2017-08-13] MEDS: Aspirin EC 81mg tab ORAL SCH (08:33)
[2017-08-13] MEDS: Furosemide 40mg tab ORAL SCH (08:33)
[2017-08-13] MEDS: Azithromycin 250mg tab ORAL SCH (08:33)
[2017-08-13] MEDS: Imdur 30mg tab ORAL SCH (08:33)
[2017-08-13] MEDS: HydrALAZINE 10mg Tab ORAL SCH ×2 (08:33→20:22)
[2017-08-13] MEDS: Lyrica 50mg cap ORAL SCH ×2 (08:34→20:22)
[2017-08-13] MEDS: Docusate 100mg cap ORAL SCH ×3 (08:35→17:30)
[2017-08-13 09:13] LABS: BASOPHILS % (AUTO) 1.2 % (0.0-2.0); EOSINOPHILS % (AUTO) 6.8 % (0.0-3.0); HEMATOCRIT 33.3 % (37.0-47.0); HEMOGLOBIN 10.8 G/DL (12.0-16.0); LYMPHOCYTES % (AUTO) 16.9 % (20.0-45.0); MEAN CORPUSCULAR VOLUME 85 FL (80-99); MONOCYTES % (AUTO) 8.3 % (1.0-10.0); NEUTROPHILS % (AUTO) 66.8 % (45.0-75.0); PLATELET COUNT 203 K/UL (150-450); RED BLOOD COUNT 3.91 M/UL (4.20-5.40); RED CELL DISTRIBUTION WIDTH 14.4 % (11.6-14.8); WHITE BLOOD COUNT 8.2 K/UL (4.8-10.8)
[2017-08-13 09:40] LABS: ANION GAP 5 mmol/L (5-15); BLOOD UREA NITROGEN 24 mg/dL (7-18); CALCIUM 9.2 MG/DL (8.5-10.1); CARBON DIOXIDE 33 MMOL/L (21-32); CHLORIDE 101 MMOL/L (98-107); CREATININE 1.2 MG/DL (0.55-1.30); POTASSIUM 4.9 MMOL/L (3.5-5.1); SODIUM 139 MMOL/L (136-145)
--- NOTE | 2017-08-13 09:58 | General Progress Note ---
Assessment/Plan Problem List: (1) AICD (automatic cardioverter/defibrillator) present ICD Codes: Z95.810 - Presence of automatic (implantable) cardiac defibrillator SNOMED: 55021411, 298812043 (2) CHF exacerbation ICD Codes: I50.9 - Heart failure, unspecified SNOMED: 97371935 (3) Iron deficiency anemia ICD Codes: D50.9 - Iron deficiency anemia, unspecified SNOMED: 37705552 (4) Intractable abdominal pain ICD Codes: R10.9 - Unspecified abdominal pain SNOMED: 92478953, 191513504 (5) Diabetes mellitus ICD Codes: E11.9 - Type 2 diabetes mellitus without complications SNOMED: 52350805 (6) EF 25% Assessment/Plan hepatomegaly with fatty infiltration. s/p normal EGD in 2017/normal colonoscopy in 2014, see report. EF - 20% chronic abdominal pain anemia work up reviewed >> iron deficiency >> Venofer ST evaluation reviewed >> LIQUIFIED PUREED SOUP DIET LIKE THIN AND NECTAR THICK CONSISTENCIES (WARM BROTH OR CREAMY SOUPS) WITH POSTED ASPIRATION PRECAUTIONS. symptomatic treatment pain mgmt prn transfusion bowel regime ppi simethicone prn pt on plavix repeat colonoscopy 2019 Subjective Allergies: Coded Allergies: No Known Allergies (Unverified , 12/18/16) Subjective no GIB Objective Last 24 Hour Vital Signs Date Time Temp Pulse Resp B/P (MAP) Pulse Ox O2 Delivery O2 Flow Rate FiO2 08/13/17 08:33 138/75 08/13/17 08:33 138/75 08/13/17 08:33 74 138/75 08/13/17 08:16 Nasal Cannula 2.0 28 08/13/17 08:15 98 Nasal Cannula 2.0 28 08/13/17 04:00 74 08/13/17 04:00 98.2 68 19 138/75 97 Nasal Cannula 2.0 98.2 08/13/17 00:00 81 08/13/17 00:00 97.5 80 18 117/60 97 Nasal Cannula 2.0 97.5 08/12/17 21:42 81 115/55 08/12/17 21:00 115/55 08/12/17 20:04 Nasal Cannula 2.0 28 08/12/17 20:04 96 Nasal Cannula 2.0 28 08/12/17 20:00 Nasal Cannula 2.0 08/12/17 20:00 82 08/12/17 20:00 97.7 81 17 115/58 98 97.7 08/12/17 16:00 96.9 76 20 88/29 97 Nasal Cannula 2.0 96.9 08/12/17 16:00 76 08/12/17 12:00 79 08/12/17 12:00 97.9 74 20 96/46 97 Nasal Cannula 2.0 97.9 Intake and Output 08/12/17 08/13/17 19:00 07:00 Intake Total 240 ml Balance 240 ml Intake Oral 240 ml # Voids 2 # Bowel Movements 1 Laboratory Tests 08/12/17 17:15: Stool Occult Blood [Pending] 08/13/17 08:40: White Blood Count [Pending], Red Blood Count [Pending], Hemoglobin [Pending], Hematocrit [Pending], Mean Corpuscular Volume [Pending], Mean Corpuscular Hemoglobin [Pending], Mean Corpuscular Hemoglobin Concent [Pending], Red Cell Distribution Width [Pending], Platelet Count [Pending], Mean Platelet Volume [ Pending], Neutrophils (%) (Auto) [Pending], Lymphocytes (%) (Auto) [Pending], Monocytes (%) (Auto) [Pending], Eosinophils (%) (Auto) [Pending], Basophils (%) (Auto) [Pending], Sodium Level 139, Potassium Level 4.9, Chloride Level 101, Carbon Dioxide Level 33H, Anion Gap 5, Blood Urea Nitrogen 24H, Creatinine 1.2, Estimat Glomerular Filtration Rate 44.4, Glucose Level 213H, Calcium Level 9.2 Height (Feet): 5 Height (Inches): 3.00 Weight (Pounds): 180 General Appearance: alert EENT: normal ENT inspection Neck: supple Cardiovascular: normal rate Respiratory/Chest: decreased breath sounds Abdomen: normal bowel sounds, non tender, soft Extremities: non-tender BIN TRINIDAD Aug 13, 2017 09:58
--- NOTE | 2017-08-13 11:15 | Pulmonology Progress Note ---
Assessment/Plan Assessment/Plan ASSESSMENT PNA acute systolic and diastolic CHF exacerbation COPD CM CVA with RS hemiplegia Dysphagia AICD mild pulmonary HTN severe MR FAB anemia encephalopathy DM obesity PLAN OF CARE tele O2 HHN prn fup CXR with some improvement in congestion empiric abx, sputum cx if able , ID follows influenza screen test negative a/tussive prn VSS with mild to mod dysphagia, diet as per ST recs ECHO with EF 30-35% and RVSP of 46 c/w mild pulmonary HTN, global LV hypokinesis , severe MR cardio follows medical management of SHF per cardio , on BB, Hydralazine and Isordil , initially IV diuresis, stopped by nephro restarted low dose po monitor cardiorenal parameters, volumes initially diuresis BS management with SS of insulin, renal US negative monitor renal parameters, correct lytes as needed, avoid nephrotoxic creat down to normal Venous Duplex negative monitor counts, anemia w/up noted psych follows, psych medication as per psych recs DVT GI prophylaxis Bowel regimen dc plan per PMD transfer to [facility] floor case discussed and evaluated by supervising physician Subjective Allergies: Coded Allergies: No Known Allergies (Unverified , 12/18/16) Subjective denies chest pain, afebrile, no leucocytosis intermittent predominantly dry cough, no hemoptysis creat down to normal Objective Last 24 Hour Vital Signs Date Time Temp Pulse Resp B/P (MAP) Pulse Ox O2 Delivery O2 Flow Rate FiO2 08/13/17 08:33 138/75 08/13/17 08:33 138/75 08/13/17 08:33 74 138/75 08/13/17 08:16 Nasal Cannula 2.0 28 08/13/17 08:15 98 Nasal Cannula 2.0 28 08/13/17 08:00 97.3 87 18 118/52 97 Nasal Cannula 2.0 97.3 08/13/17 04:00 74 08/13/17 04:00 98.2 68 19 138/75 97 Nasal Cannula 2.0 98.2 08/13/17 00:00 81 08/13/17 00:00 97.5 80 18 117/60 97 Nasal Cannula 2.0 97.5 08/12/17 21:42 81 115/55 08/12/17 21:00 115/55 08/12/17 20:04 Nasal Cannula 2.0 28 08/12/17 20:04 96 Nasal Cannula 2.0 28 08/12/17 20:00 Nasal Cannula 2.0 08/12/17 20:00 82 08/12/17 20:00 97.7 81 17 115/58 98 97.7 08/12/17 16:00 96.9 76 20 88/29 97 Nasal Cannula 2.0 96.9 08/12/17 16:00 76 08/12/17 12:00 79 08/12/17 12:00 97.9 74 20 96/46 97 Nasal Cannula 2.0 97.9 Intake and Output 08/12/17 08/13/17 19:00 07:00 Intake Total 240 ml Balance 240 ml Intake Oral 240 ml # Voids 2 # Bowel Movements 1 Objective General Appearance: no acute distress HEENT: normocephalic, atraumatic, anicteric Respiratory/Chest: lungs clear with moderate air exchange , no respiratory distress Cardiovascular: normal rate - V pacing on tele Abdomen: normal bowel sounds, soft, non tender, obese Extremities: other - trace edema BLE 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: alert, responsive, R side hemiplegia Laboratory Tests 08/12/17 17:15: Stool Occult Blood [Pending] 08/13/17 08:40: White Blood Count 8.2, Red Blood Count 3.91L, Hemoglobin 10.8L, Hematocrit 33.3L , Mean Corpuscular Volume 85, Mean Corpuscular Hemoglobin 27.7, Mean Corpuscular Hemoglobin Concent 32.6, Red Cell Distribution Width 14.4, Platelet Count 203, Mean Platelet Volume 10.0, Neutrophils (%) (Auto) 66.8, Lymphocytes ( %) (Auto) 16.9L, Monocytes (%) (Auto) 8.3, Eosinophils (%) (Auto) 6.8H, Basophils (%) (Auto) 1.2, Sodium Level 139, Potassium Level 4.9, Chloride Level 101, Carbon Dioxide Level 33H, Anion Gap 5, Blood Urea Nitrogen 24H, Creatinine 1.2, Estimat Glomerular Filtration Rate 44.4, Glucose Level 213H, Calcium Level 9.2 Current Medications Medications (Trade) Dose Ordered Sig/[place] Route PRN Reason Start Time Stop Time Status Last Admin Dose Admin Acetaminophen (Tylenol) 500 mg Q4H PRN ORAL Mild Pain/Temp > 100.5 08/08/17 07:00 09/07/17 06:59 08/12/17 08:45 Albuterol/ Ipratropium (Albuterol/ Ipratropium) 3 ml Q4H PRN HHN Shortness of Breath 08/12/17 12:30 08/17/17 23:59 Aspirin (Ecotrin) 81 mg DAILY ORAL 08/08/17 09:00 09/07/17 08:59 08/13/17 08:33 Atorvastatin Calcium (Lipitor) 40 mg BEDTIME ORAL 08/08/17 21:00 09/07/17 20:59 08/12/17 21:25 Azithromycin (Zithromax) 250 mg DAILY ORAL 08/08/17 09:00 08/15/17 08:59 08/13/17 08:33 Carvedilol (Coreg) 3.125 mg EVERY 12 HOURS ORAL 08/09/17 22:00 09/08/17 21:59 08/13/17 08:33 Ceftriaxone Sodium 1 gm/ Sodium Chloride 55 ml @ 110 mls/hr Q24H IVPB 08/08/17 10:00 08/15/17 09:59 08/12/17 10:34 Clopidogrel Bisulfate (Plavix) 75 mg DAILY ORAL 08/08/17 09:00 09/07/17 08:59 08/13/17 08:33 Dextrose (Dextrose 50%) STAT PRN IV Hypoglycemia 08/08/17 07:00 09/07/17 06:59 Docusate Sodium (Colace) 100 mg THREE TIMES A DAY ORAL 08/09/17 13:30 09/08/17 13:29 08/13/17 08:35 Fexofenadine HCl (Rebecca) 60 mg TWICE A DAY ORAL 08/08/17 10:00 09/07/17 09:59 08/13/17 08:33 Furosemide (Lasix) 40 mg DAILY ORAL 08/11/17 09:15 09/10/17 09:14 08/13/17 08:33 Hydralazine HCl (Apresoline) 10 mg Q12HR ORAL 08/11/17 09:00 09/10/17 08:59 08/13/17 08:33 Insulin Aspart (NovoLOG) BEFORE MEALS AND HS SUBQ 08/08/17 11:30 09/07/17 11:29 08/13/17 06:55 Isosorbide Mononitrate (Imdur) 30 mg DAILY ORAL 08/11/17 09:00 09/10/17 08:59 08/13/17 08:33 Pantoprazole (Protonix) 40 mg DAILY ORAL 08/08/17 09:00 09/07/17 08:59 08/13/17 08:33 Phenol/Menthol (Chloraseptic) 1 spray Q3H PRN ORAL SORE THROAT 08/10/17 14:00 09/09/17 13:59 Polyethylene Glycol (Miralax) 17 gm BEDTIME ORAL 08/08/17 21:00 09/07/17 20:59 08/12/17 21:27 Pregabalin (Lyrica) 50 mg Q12HR ORAL 08/08/17 09:00 09/07/17 08:59 08/13/17 08:34 Promethazine HCl/ Codeine (Phenergan with Codeine) 5 ml Q4H PRN ORAL For Cough 08/08/17 15:15 09/07/17 15:14 08/09/17 17:52 Quetiapine Fumarate (SEROquel) 12.5 mg HSPRN PRN ORAL Agitation 08/08/17 12:30 09/07/17 12:29 Simethicone (Mylicon) 80 mg Q6H PRN ORAL Abdominal cramps 08/08/17 07:00 09/07/17 06:59 Mathew Peoplesrudolph)Sari NP Aug 13, 2017 11:15
[2017-08-13] MEDS: cefTRIAXone 1 GM in NS 55 ML IVPB SCH (11:24)
[2017-08-13 12:00] VITALS: BP 91/40
--- NOTE | 2017-08-13 12:52 | Internal Med Progress Note ---
Subjective Date of Service: Aug 13, 2017 Physician Name Jovana Aguilar Attending Physician Brendan Wright MD Current Medications Medications (Trade) Dose Ordered Sig/[place] Route PRN Reason Start Time Stop Time Status Last Admin Dose Admin Acetaminophen (Tylenol) 500 mg Q4H PRN ORAL Mild Pain/Temp > 100.5 08/08/17 07:00 09/07/17 06:59 08/12/17 08:45 Albuterol/ Ipratropium (Albuterol/ Ipratropium) 3 ml Q4H PRN HHN Shortness of Breath 08/12/17 12:30 08/17/17 23:59 Aspirin (Ecotrin) 81 mg DAILY ORAL 08/08/17 09:00 09/07/17 08:59 08/13/17 08:33 Atorvastatin Calcium (Lipitor) 40 mg BEDTIME ORAL 08/08/17 21:00 09/07/17 20:59 08/12/17 21:25 Azithromycin (Zithromax) 250 mg DAILY ORAL 08/08/17 09:00 08/15/17 08:59 08/13/17 08:33 Carvedilol (Coreg) 3.125 mg EVERY 12 HOURS ORAL 08/09/17 22:00 09/08/17 21:59 08/13/17 08:33 Ceftriaxone Sodium 1 gm/ Sodium Chloride 55 ml @ 110 mls/hr Q24H IVPB 08/08/17 10:00 08/15/17 09:59 08/13/17 11:24 Clopidogrel Bisulfate (Plavix) 75 mg DAILY ORAL 08/08/17 09:00 09/07/17 08:59 08/13/17 08:33 Dextrose (Dextrose 50%) STAT PRN IV Hypoglycemia 08/08/17 07:00 09/07/17 06:59 Docusate Sodium (Colace) 100 mg THREE TIMES A DAY ORAL 08/09/17 13:30 09/08/17 13:29 08/13/17 12:49 Fexofenadine HCl (Rebecca) 60 mg TWICE A DAY ORAL 08/08/17 10:00 09/07/17 09:59 08/13/17 08:33 Furosemide (Lasix) 40 mg DAILY ORAL 08/11/17 09:15 09/10/17 09:14 08/13/17 08:33 Hydralazine HCl (Apresoline) 10 mg Q12HR ORAL 08/11/17 09:00 09/10/17 08:59 08/13/17 08:33 Insulin Aspart (NovoLOG) BEFORE MEALS AND HS SUBQ 08/08/17 11:30 09/07/17 11:29 08/13/17 12:24 Isosorbide Mononitrate (Imdur) 30 mg DAILY ORAL 08/11/17 09:00 09/10/17 08:59 08/13/17 08:33 Pantoprazole (Protonix) 40 mg DAILY ORAL 08/08/17 09:00 09/07/17 08:59 08/13/17 08:33 Phenol/Menthol (Chloraseptic) 1 spray Q3H PRN ORAL SORE THROAT 08/10/17 14:00 09/09/17 13:59 Polyethylene Glycol (Miralax) 17 gm BEDTIME ORAL 08/08/17 21:00 09/07/17 20:59 08/12/17 21:27 Pregabalin (Lyrica) 50 mg Q12HR ORAL 08/08/17 09:00 09/07/17 08:59 08/13/17 08:34 Promethazine HCl/ Codeine (Phenergan with Codeine) 5 ml Q4H PRN ORAL For Cough 08/08/17 15:15 09/07/17 15:14 08/09/17 17:52 Quetiapine Fumarate (SEROquel) 12.5 mg HSPRN PRN ORAL Agitation 08/08/17 12:30 09/07/17 12:29 Simethicone (Mylicon) 80 mg Q6H PRN ORAL Abdominal cramps 08/08/17 07:00 09/07/17 06:59 Allergies: Coded Allergies: No Known Allergies (Unverified , 12/18/16) ROS Limited/Unobtainable: No Constitutional: Reports: no symptoms HEENT: Reports: no symptoms Cardiovascular: Reports: no symptoms Respiratory: Reports: shortness of breath Gastrointestinal/Abdominal: Reports: no symptoms Genitourinary: Reports: no symptoms 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: Reports: no symptoms Subjective 72 YO F admitted with shortness of breath. Now pneumonia and Jose D heart failure. Cover for Int Med-Dr Wright. Objective Last Vital Signs Date Time Temp Pulse Resp B/P (MAP) Pulse Ox O2 Delivery O2 Flow Rate FiO2 08/13/17 08:33 138/75 08/13/17 08:33 74 08/13/17 08:16 Nasal Cannula 2.0 28 08/13/17 08:15 98 08/13/17 08:00 97.3 18 97.3 Laboratory Tests Test 08/12/17 17:15 08/13/17 08:40 Stool Occult Blood Pending White Blood Count 8.2 K/UL (4.8-10.8) Red Blood Count 3.91 M/UL (4.20-5.40) L Hemoglobin 10.8 G/DL (12.0-16.0) L Hematocrit 33.3 % (37.0-47.0) L Mean Corpuscular Volume 85 FL (80-99) Mean Corpuscular Hemoglobin 27.7 PG (27.0-31.0) Mean Corpuscular Hemoglobin Concent 32.6 G/DL (32.0-36.0) Red Cell Distribution Width 14.4 % (11.6-14.8) Platelet Count 203 K/UL (150-450) Mean Platelet Volume 10.0 FL (6.5-10.1) Neutrophils (%) (Auto) 66.8 % (45.0-75.0) Lymphocytes (%) (Auto) 16.9 % (20.0-45.0) L Monocytes (%) (Auto) 8.3 % (1.0-10.0) Eosinophils (%) (Auto) 6.8 % (0.0-3.0) H Basophils (%) (Auto) 1.2 % (0.0-2.0) Sodium Level 139 MMOL/L (136-145) Potassium Level 4.9 MMOL/L (3.5-5.1) Chloride Level 101 MMOL/L (98-107) Carbon Dioxide Level 33 MMOL/L (21-32) H Anion Gap 5 mmol/L (5-15) Blood Urea Nitrogen 24 mg/dL (7-18) H Creatinine 1.2 MG/DL (0.55-1.30) Estimat Glomerular Filtration Rate 44.4 mL/min (>60) Glucose Level 213 MG/DL (74-106) H Calcium Level 9.2 MG/DL (8.5-10.1) Intake and Output 08/12/17 08/13/17 19:00 07:00 Intake Total 240 ml Balance 240 ml Intake Oral 240 ml # Voids 2 # Bowel Movements 1 Objective General Appearance: WD/WN, no apparent distress, alert EENT: PERRL/EOMI, normal ENT inspection Neck: non-tender, normal alignment, supple, normal inspection Cardiovascular: normal peripheral pulses, normal rate, regular rhythm, no gallop/murmur, no JVD Respiratory/Chest: chest wall non-tender, lungs clear, normal breath sounds, no respiratory distress, no accessory muscle use Abdomen: normal bowel sounds, no organomegaly, no mass, decreased bowel sounds , tender Extremities: normal range of motion 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 Continue ceftriaxone, azithromycin and flagyl. See pulmonary note. (2) Shortness of breath Assessment & Plan: Due to CHF and pneumonia. (3) Acute renal failure (ARF) Assessment & Plan: See nephrology note. (4) CHF exacerbation Assessment & Plan: Last LVEF=25%. See cardiology note. (5) Cardiomyopathy (6) Diabetes mellitus Assessment & Plan: Continue novolog sliding scale. (7) HTN (hypertension) Assessment & Plan: Continue hydralazine and coreg. (8) Cerebral vascular disease (9) Hemiparesis, right (10) Anemia (11) LBBB (left bundle branch block) Assessment & Plan: S/P pacemaker. See Cardiology note. (12) AICD (automatic cardioverter/defibrillator) present (13) Dysphagia Assessment & Plan: Await video swallow Status: progressing JOVANA AGUILAR Aug 13, 2017 12:52
--- NOTE | 2017-08-13 15:52 | Infectious Diseases Prog Note ---
Assessment/Plan Assessment/Plan ASSESSMENT: The patient is a 72-year-old female with, Community-acquired pneumonia. Chest x-ray, CHF/interstitial edema with some interval improvement Normal white blood cells. Afebrile. Influenza A/B negative. COPD CHF EF : 25-30%. Cardiomyopathy Diabetes Hypertension CVA History of right hemiparesis History of cervical cancer, status post hysterectomy. Iron-deficiency anemia. History of AICD placement. Diverticulosis. History of hiatal hernia. GERD/esophagitis. Status post normal EGD and normal colonoscopy in October of 2016. PLAN: DC Zithromax and Rocephin day # 6 08/09b SP Flagyl day #2 Monitor CBC. Monitor BMP. Monitor cultures (sputum). Monitor chest x-ray. Subjective Allergies: Coded Allergies: No Known Allergies (Unverified , 12/18/16) Subjective Afebrile Objective Vital Signs Last 24 Hour Vital Signs Date Time Temp Pulse Resp B/P (MAP) Pulse Ox O2 Delivery O2 Flow Rate FiO2 08/13/17 12:00 97.0 75 18 91/40 100 Nasal Cannula 2.0 97.0 08/13/17 08:33 138/75 08/13/17 08:33 138/75 08/13/17 08:33 74 138/75 08/13/17 08:16 Nasal Cannula 2.0 28 08/13/17 08:15 98 Nasal Cannula 2.0 28 08/13/17 08:00 83 08/13/17 08:00 97.3 87 18 118/52 97 Nasal Cannula 2.0 97.3 08/13/17 04:00 74 08/13/17 04:00 98.2 68 19 138/75 97 Nasal Cannula 2.0 98.2 08/13/17 00:00 81 08/13/17 00:00 97.5 80 18 117/60 97 Nasal Cannula 2.0 97.5 08/12/17 21:42 81 115/55 08/12/17 21:00 115/55 08/12/17 20:04 Nasal Cannula 2.0 28 08/12/17 20:04 96 Nasal Cannula 2.0 28 08/12/17 20:00 Nasal Cannula 2.0 08/12/17 20:00 82 08/12/17 20:00 97.7 81 17 115/58 98 97.7 08/12/17 16:00 96.9 76 20 88/29 97 Nasal Cannula 2.0 96.9 08/12/17 16:00 76 Height (Feet): 5 Height (Inches): 3.00 Weight (Pounds): 180 HEENT: mucous membranes moist Respiratory/Chest: no respiratory distress Cardiovascular: regular rhythm Abdomen: soft, non tender Laboratory Tests Test 08/12/17 17:15 08/13/17 08:40 Stool Occult Blood Pending White Blood Count 8.2 K/UL (4.8-10.8) Red Blood Count 3.91 M/UL (4.20-5.40) L Hemoglobin 10.8 G/DL (12.0-16.0) L Hematocrit 33.3 % (37.0-47.0) L Mean Corpuscular Volume 85 FL (80-99) Mean Corpuscular Hemoglobin 27.7 PG (27.0-31.0) Mean Corpuscular Hemoglobin Concent 32.6 G/DL (32.0-36.0) Red Cell Distribution Width 14.4 % (11.6-14.8) Platelet Count 203 K/UL (150-450) Mean Platelet Volume 10.0 FL (6.5-10.1) Neutrophils (%) (Auto) 66.8 % (45.0-75.0) Lymphocytes (%) (Auto) 16.9 % (20.0-45.0) L Monocytes (%) (Auto) 8.3 % (1.0-10.0) Eosinophils (%) (Auto) 6.8 % (0.0-3.0) H Basophils (%) (Auto) 1.2 % (0.0-2.0) Sodium Level 139 MMOL/L (136-145) Potassium Level 4.9 MMOL/L (3.5-5.1) Chloride Level 101 MMOL/L (98-107) Carbon Dioxide Level 33 MMOL/L (21-32) H Anion Gap 5 mmol/L (5-15) Blood Urea Nitrogen 24 mg/dL (7-18) H Creatinine 1.2 MG/DL (0.55-1.30) Estimat Glomerular Filtration Rate 44.4 mL/min (>60) Glucose Level 213 MG/DL (74-106) H Calcium Level 9.2 MG/DL (8.5-10.1) Current Medications Medications (Trade) Dose Ordered Sig/[place] Route PRN Reason Start Time Stop Time Status Last Admin Dose Admin Acetaminophen (Tylenol) 500 mg Q4H PRN ORAL Mild Pain/Temp > 100.5 08/08/17 07:00 09/07/17 06:59 08/12/17 08:45 Albuterol/ Ipratropium (Albuterol/ Ipratropium) 3 ml Q4H PRN HHN Shortness of Breath 08/12/17 12:30 08/17/17 23:59 Aspirin (Ecotrin) 81 mg DAILY ORAL 08/08/17 09:00 09/07/17 08:59 08/13/17 08:33 Atorvastatin Calcium (Lipitor) 40 mg BEDTIME ORAL 08/08/17 21:00 09/07/17 20:59 08/12/17 21:25 Azithromycin (Zithromax) 250 mg DAILY ORAL 08/08/17 09:00 08/15/17 08:59 08/13/17 08:33 Carvedilol (Coreg) 3.125 mg EVERY 12 HOURS ORAL 08/09/17 22:00 09/08/17 21:59 08/13/17 08:33 Ceftriaxone Sodium 1 gm/ Sodium Chloride 55 ml @ 110 mls/hr Q24H IVPB 08/08/17 10:00 08/15/17 09:59 08/13/17 11:24 Clopidogrel Bisulfate (Plavix) 75 mg DAILY ORAL 08/08/17 09:00 09/07/17 08:59 08/13/17 08:33 Dextrose (Dextrose 50%) STAT PRN IV Hypoglycemia 08/08/17 07:00 09/07/17 06:59 Docusate Sodium (Colace) 100 mg THREE TIMES A DAY ORAL 08/09/17 13:30 09/08/17 13:29 08/13/17 12:49 Fexofenadine HCl (Rebecca) 60 mg TWICE A DAY ORAL 08/08/17 10:00 09/07/17 09:59 08/13/17 08:33 Furosemide (Lasix) 40 mg DAILY ORAL 08/11/17 09:15 09/10/17 09:14 08/13/17 08:33 Hydralazine HCl (Apresoline) 10 mg Q12HR ORAL 08/11/17 09:00 09/10/17 08:59 08/13/17 08:33 Insulin Aspart (NovoLOG) BEFORE MEALS AND HS SUBQ 08/08/17 11:30 09/07/17 11:29 08/13/17 12:24 Isosorbide Mononitrate (Imdur) 30 mg DAILY ORAL 08/11/17 09:00 09/10/17 08:59 08/13/17 08:33 Pantoprazole (Protonix) 40 mg DAILY ORAL 08/08/17 09:00 09/07/17 08:59 08/13/17 08:33 Phenol/Menthol (Chloraseptic) 1 spray Q3H PRN ORAL SORE THROAT 08/10/17 14:00 09/09/17 13:59 Polyethylene Glycol (Miralax) 17 gm BEDTIME ORAL 08/08/17 21:00 09/07/17 20:59 08/12/17 21:27 Pregabalin (Lyrica) 50 mg Q12HR ORAL 08/08/17 09:00 09/07/17 08:59 08/13/17 08:34 Promethazine HCl/ Codeine (Phenergan with Codeine) 5 ml Q4H PRN ORAL For Cough 08/08/17 15:15 09/07/17 15:14 08/09/17 17:52 Quetiapine Fumarate (SEROquel) 12.5 mg HSPRN PRN ORAL Agitation 08/08/17 12:30 09/07/17 12:29 Simethicone (Mylicon) 80 mg Q6H PRN ORAL Abdominal cramps 08/08/17 07:00 09/07/17 06:59 QUETA LENTZ M.D. Aug 13, 2017 15:51
[2017-08-13 16:00] VITALS: BP 110/57
[2017-08-13] MEDS ORDERED: Simethicone 80mg tab ORAL PRN (19:00)
[2017-08-13] MEDS ORDERED: Acetaminophen 500mg (ES) tab ORAL PRN (19:00)
[2017-08-13] MEDS ORDERED: Promethazine/Codeine 5ml UD ORAL PRN (19:15)
[2017-08-13 20:00] VITALS: BP 120/64
[2017-08-13] MEDS ORDERED: Chloraseptic Spray 20mL Bottle ORAL PRN (20:00)
[2017-08-13] MEDS ORDERED: Albuterol/Ipratropium 3ml neb HHN PRN (20:30)
[2017-08-13] MEDS ORDERED: Miralax 17gm pkt ORAL SCH (21:00)
[2017-08-13] MEDS ORDERED: Atorvastatin 20mg tab ORAL SCH (21:00)
--- NOTE | 2017-08-13 23:45 | General Progress Note ---
Assessment/Plan Assessment/Plan 1. Anemia due to underlying chronic disease. --> Anemia workup reviewed. --> Iron 24, TIBC 284, B12 690, Folate 10.9 --> Hemoglobin goal is above 7. Hgb levels continue to improve. No active bleeding. --> Blood transfusion not required at this time. Cont to trend and monitor cbc. 2. Anemia of iron deficiency. --> Iron low 24. Currently, does not appear to be severe iron deficiency. --> Continue to closely monitor. --> Hemoglobin goal is above 7 and anemia workup has been reviewed. --> Reticulocyte count 1.9 --> consider iron treatment 3. Cervical cancer, status post total abdominal hysterectomy 4. Pneumonia. --> She is on broad-spectrum antibiotics as per Pulmonary team. --> Monitor for improvement. 5. Pulmonary hypertension. 6. Obesity. 7. Diabetes mellitus. 8. Encephalopathy. Subjective Date patient seen: Aug 13, 2017 Constitutional: Denies: no symptoms, chills, diaphoresis, fever, malaise, weakness, other HEENT: Denies: no symptoms, eye pain, blurred vision, tearing, double vision, ear pain, ear discharge, nose pain, nose congestion, throat pain, throat swelling, mouth pain, mouth swelling, other Cardiovascular: Denies: no symptoms, chest pain, edema, irregular heart rate, lightheadedness, palpitations, syncope, other Respiratory: Denies: no symptoms, cough, orthopnea, shortness of breath, SOB with excertion, SOB at rest, sputum, stridor, wheezing, other Gastrointestinal/Abdominal: Denies: no symptoms, abdomen distended, abdominal pain, black stools, tarry stools, blood in stool, constipated, diarrhea, difficulty swallowing, nausea, poor appetite, poor fluid intake, rectal bleeding , vomiting, other Genitourinary: Denies: no symptoms, burning, discharge, frequency, flank pain, hematuria, incontinence, pain, urgency, other 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: Denies: no symptoms, anxiety, depressed, emotional problems, headache, numbness, paresthesia, pre-existing deficit, seizure, tingling, tremors, weakness, other Hematologic/Lymphatic: Reports: anemia Allergies: Coded Allergies: No Known Allergies (Unverified , 12/18/16) Subjective NAD. No fever. H/H improving. Objective Last 24 Hour Vital Signs Date Time Temp Pulse Resp B/P (MAP) Pulse Ox O2 Delivery O2 Flow Rate FiO2 08/13/17 20:22 120/69 08/13/17 20:21 86 120/69 08/13/17 20:00 Nasal Cannula 2.0 08/13/17 20:00 98.2 86 20 120/64 96 98.2 08/13/17 16:00 97.3 75 18 110/57 100 Nasal Cannula 2.0 97.3 08/13/17 12:00 97.0 75 18 91/40 100 Nasal Cannula 2.0 97.0 08/13/17 12:00 74 08/13/17 08:33 138/75 08/13/17 08:33 138/75 08/13/17 08:33 74 138/75 08/13/17 08:16 Nasal Cannula 2.0 28 08/13/17 08:15 98 Nasal Cannula 2.0 28 08/13/17 08:00 83 08/13/17 08:00 97.3 87 18 118/52 97 Nasal Cannula 2.0 97.3 08/13/17 04:00 74 08/13/17 04:00 98.2 68 19 138/75 97 Nasal Cannula 2.0 98.2 08/13/17 00:00 81 08/13/17 00:00 97.5 80 18 117/60 97 Nasal Cannula 2.0 97.5 Intake and Output 08/12/17 08/13/17 19:00 07:00 Intake Total 240 ml Balance 240 ml Intake Oral 240 ml # Voids 2 # Bowel Movements 1 Laboratory Tests 08/13/17 08:40: White Blood Count 8.2, Red Blood Count 3.91L, Hemoglobin 10.8L, Hematocrit 33.3L , Mean Corpuscular Volume 85, Mean Corpuscular Hemoglobin 27.7, Mean Corpuscular Hemoglobin Concent 32.6, Red Cell Distribution Width 14.4, Platelet Count 203, Mean Platelet Volume 10.0, Neutrophils (%) (Auto) 66.8, Lymphocytes ( %) (Auto) 16.9L, Monocytes (%) (Auto) 8.3, Eosinophils (%) (Auto) 6.8H, Basophils (%) (Auto) 1.2, Sodium Level 139, Potassium Level 4.9, Chloride Level 101, Carbon Dioxide Level 33H, Anion Gap 5, Blood Urea Nitrogen 24H, Creatinine 1.2, Estimat Glomerular Filtration Rate 44.4, Glucose Level 213H, Calcium Level 9.2 Height (Feet): 5 Height (Inches): 3.00 Weight (Pounds): 180 General Appearance: no apparent distress Respiratory/Chest: decreased breath sounds Abdomen: non tender, soft Daljit Miles Aug 13, 2017 23:45
[2017-08-14] VITALS (7 sets, daily range): BP systolic 113–133; BP diastolic 47–68
[2017-08-14] MEDS: NovoLOG Insulin Flexpen SUBQ SCH ×3 (05:50→17:17)
[2017-08-14 08:12] LABS: EOSINOPHILS % (AUTO) 5.3 % (0.0-3.0); HEMATOCRIT 33.3 % (37.0-47.0); HEMOGLOBIN 10.8 G/DL (12.0-16.0); LYMPHOCYTES % (AUTO) 16.1 % (20.0-45.0); MEAN CORPUSCULAR VOLUME 85 FL (80-99); MONOCYTES % (AUTO) 8.7 % (1.0-10.0); PLATELET COUNT 206 K/UL (150-450); RED BLOOD COUNT 3.93 M/UL (4.20-5.40); RED CELL DISTRIBUTION WIDTH 14.5 % (11.6-14.8); WHITE BLOOD COUNT 9.3 K/UL (4.8-10.8)
[2017-08-14 08:33] LABS: ANION GAP 5 mmol/L (5-15); BLOOD UREA NITROGEN 24 mg/dL (7-18); CALCIUM 9.4 MG/DL (8.5-10.1); CARBON DIOXIDE 35 MMOL/L (21-32); CHLORIDE 100 MMOL/L (98-107); CREATININE 1.2 MG/DL (0.55-1.30); POTASSIUM 4.6 MMOL/L (3.5-5.1); SODIUM 139 MMOL/L (136-145)
[2017-08-14] MEDS ORDERED: Imdur 30mg tab ORAL SCH (09:00)
[2017-08-14] MEDS ORDERED: Furosemide 40mg tab ORAL SCH (09:00)
[2017-08-14] MEDS ORDERED: Aspirin EC 81mg tab ORAL SCH (09:00)
[2017-08-14] MEDS: HydrALAZINE 10mg Tab ORAL SCH (10:13)
[2017-08-14] MEDS: Docusate 100mg cap ORAL SCH ×3 (10:14→18:03)
[2017-08-14] MEDS: Lyrica 50mg cap ORAL SCH (10:17)
--- NOTE | 2017-08-14 11:55 | GI Progress Note ---
Assessment/Plan Problems: (1) Iron deficiency anemia ICD Codes: D50.9 - Iron deficiency anemia, unspecified SNOMED: 20478481 (2) Anemia ICD Codes: D64.9 - Anemia, unspecified SNOMED: 778251428 (3) EF 25% (4) Obesity ICD Codes: E66.9 - Obesity, unspecified SNOMED: 283882834 Status: stable Status Narrative Discussed with Dr. Leal. Assessment/Plan hepatomegaly with fatty infiltration. s/p normal EGD in 2017/normal colonoscopy in 2015, see report. EF - 20% chronic abdominal pain anemia work up reviewed >> iron deficiency >> Venofer ST evaluation reviewed >> LIQUIFIED PUREED SOUP DIET LIKE THIN AND NECTAR THICK CONSISTENCIES (WARM BROTH OR CREAMY SOUPS) WITH POSTED ASPIRATION PRECAUTIONS. OB stool negative symptomatic treatment pain mgmt prn transfusion bowel regime ppi simethicone prn pt on plavix repeat colonoscopy 2020 Subjective Subjective abdominal discomfort Objective Last 24 Hour Vital Signs Date Time Temp Pulse Resp B/P (MAP) Pulse Ox O2 Delivery O2 Flow Rate FiO2 08/14/17 10:15 133/66 08/14/17 10:14 78 133/66 08/14/17 10:13 133/66 08/14/17 09:48 78 133/66 98 Nasal Cannula 2.0 08/14/17 08:00 97.7 18 115/66 94 Nasal Cannula 2.0 97.7 08/14/17 07:24 Nasal Cannula 2.0 28 08/14/17 07:24 98 Nasal Cannula 2.0 28 08/14/17 04:15 119/59 98 Nasal Cannula 2.0 08/14/17 04:00 98.2 81 18 113/47 98 98.2 08/14/17 00:00 97.5 79 18 123/68 96 Nasal Cannula 2.0 97.5 08/13/17 20:22 120/69 08/13/17 20:21 86 120/69 08/13/17 20:00 Nasal Cannula 2.0 08/13/17 20:00 98.2 86 20 120/64 96 98.2 08/13/17 19:24 Nasal Cannula 2.0 28 08/13/17 19:24 98 Nasal Cannula 2.0 28 08/13/17 16:00 97.3 75 18 110/57 100 Nasal Cannula 2.0 97.3 08/13/17 12:00 97.0 75 18 91/40 100 Nasal Cannula 2.0 97.0 08/13/17 12:00 74 Intake and Output 08/13/17 08/14/17 19:00 07:00 Intake Total 300 ml 120 ml Output Total 750 ml Balance -450 ml 120 ml Intake Oral 300 ml 120 ml Output Urine Total 750 ml # Voids 3 # Bowel Movements 1 Laboratory Tests Test 08/14/17 06:25 White Blood Count 9.3 K/UL (4.8-10.8) Red Blood Count 3.93 M/UL (4.20-5.40) L Hemoglobin 10.8 G/DL (12.0-16.0) L Hematocrit 33.3 % (37.0-47.0) L Mean Corpuscular Volume 85 FL (80-99) Mean Corpuscular Hemoglobin 27.5 PG (27.0-31.0) Mean Corpuscular Hemoglobin Concent 32.5 G/DL (32.0-36.0) Red Cell Distribution Width 14.5 % (11.6-14.8) Platelet Count 206 K/UL (150-450) Mean Platelet Volume 9.0 FL (6.5-10.1) Neutrophils (%) (Auto) 69.0 % (45.0-75.0) Lymphocytes (%) (Auto) 16.1 % (20.0-45.0) L Monocytes (%) (Auto) 8.7 % (1.0-10.0) Eosinophils (%) (Auto) 5.3 % (0.0-3.0) H Basophils (%) (Auto) 1.0 % (0.0-2.0) Sodium Level 139 MMOL/L (136-145) Potassium Level 4.6 MMOL/L (3.5-5.1) Chloride Level 100 MMOL/L (98-107) Carbon Dioxide Level 35 MMOL/L (21-32) H Anion Gap 5 mmol/L (5-15) Blood Urea Nitrogen 24 mg/dL (7-18) H Creatinine 1.2 MG/DL (0.55-1.30) Estimat Glomerular Filtration Rate 44.4 mL/min (>60) Glucose Level 175 MG/DL (74-106) H Calcium Level 9.4 MG/DL (8.5-10.1) Height (Feet): 5 Height (Inches): 3.00 Weight (Pounds): 177 General Appearance: WD/WN, no apparent distress, alert, overweight Cardiovascular: normal rate Respiratory/Chest: normal breath sounds, no respiratory distress Abdominal Exam: normal bowel sounds, non tender, soft Extremities: normal range of motion, non-tender Rizwana Cotton N.P. Aug 14, 2017 11:55
--- NOTE | 2017-08-14 12:08 | Internal Med Progress Note ---
Subjective Date of Service: Aug 14, 2017 Physician Name Jovana Aguilar Attending Physician Brendan Wright MD Current Medications Medications (Trade) Dose Ordered Sig/[place] Route PRN Reason Start Time Stop Time Status Last Admin Dose Admin Acetaminophen (Tylenol) 500 mg Q4H PRN ORAL Mild Pain/Temp > 100.5 08/13/17 19:00 09/07/17 06:59 Albuterol/ Ipratropium (Albuterol/ Ipratropium) 3 ml Q4H PRN HHN Shortness of Breath 08/13/17 20:30 08/17/17 23:59 Aspirin (Ecotrin) 81 mg DAILY ORAL 08/14/17 09:00 09/07/17 08:59 08/14/17 10:15 Atorvastatin Calcium (Lipitor) 40 mg BEDTIME ORAL 08/13/17 21:00 09/07/17 20:59 08/13/17 20:22 Carvedilol (Coreg) 3.125 mg EVERY 12 HOURS ORAL 08/13/17 21:00 09/08/17 21:59 08/14/17 10:14 Clopidogrel Bisulfate (Plavix) 75 mg DAILY ORAL 08/14/17 09:00 09/07/17 08:59 08/14/17 10:17 Dextrose (Dextrose 50%) STAT PRN IV Hypoglycemia 08/14/17 07:00 09/07/17 06:59 Docusate Sodium (Colace) 100 mg THREE TIMES A DAY ORAL 08/14/17 09:00 09/08/17 13:29 08/14/17 10:14 Fexofenadine HCl (Rebecca) 60 mg TWICE A DAY ORAL 08/14/17 09:00 09/07/17 09:59 08/14/17 10:12 Furosemide (Lasix) 40 mg DAILY ORAL 08/14/17 09:00 09/10/17 09:14 08/14/17 10:16 Hydralazine HCl (Apresoline) 10 mg Q12HR ORAL 08/13/17 21:00 09/10/17 08:59 08/14/17 10:13 Insulin Aspart (NovoLOG) BEFORE MEALS AND HS SUBQ 08/13/17 21:00 09/07/17 11:29 08/14/17 05:50 Isosorbide Mononitrate (Imdur) 30 mg DAILY ORAL 08/14/17 09:00 09/10/17 08:59 08/14/17 10:15 Pantoprazole (Protonix) 40 mg DAILY ORAL 08/14/17 09:00 09/07/17 08:59 08/14/17 10:17 Phenol/Menthol (Chloraseptic) 1 spray Q3H PRN ORAL SORE THROAT 08/13/17 20:00 09/09/17 13:59 Polyethylene Glycol (Miralax) 17 gm BEDTIME ORAL 08/13/17 21:00 09/07/17 20:59 08/13/17 20:21 Pregabalin (Lyrica) 50 mg Q12HR ORAL 08/13/17 21:00 09/07/17 08:59 08/14/17 10:17 Promethazine HCl/ Codeine (Phenergan with Codeine) 5 ml Q4H PRN ORAL For Cough 08/13/17 19:15 09/07/17 15:14 Quetiapine Fumarate (SEROquel) 12.5 mg HSPRN PRN ORAL Agitation 08/13/17 18:00 09/12/17 17:59 Simethicone (Mylicon) 80 mg Q6H PRN ORAL Abdominal cramps 08/13/17 19:00 09/07/17 06:59 Allergies: Coded Allergies: No Known Allergies (Unverified , 12/18/16) ROS Limited/Unobtainable: No Constitutional: Reports: no symptoms HEENT: Reports: no symptoms Cardiovascular: Reports: no symptoms Respiratory: Reports: no symptoms Gastrointestinal/Abdominal: Reports: no symptoms Genitourinary: Reports: no symptoms 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: Reports: no symptoms Subjective 72 YO F admitted with shortness of breath. Now pneumonia and Jose D heart failure. Cover for Int Med-Dr Wright. Await discharge home today. Objective Last Vital Signs Date Time Temp Pulse Resp B/P (MAP) Pulse Ox O2 Delivery O2 Flow Rate FiO2 08/14/17 10:15 133/66 08/14/17 10:14 78 08/14/17 09:48 98 Nasal Cannula 2.0 08/14/17 08:00 97.7 18 97.7 08/14/17 07:24 28 Laboratory Tests Test 08/14/17 06:25 White Blood Count 9.3 K/UL (4.8-10.8) Red Blood Count 3.93 M/UL (4.20-5.40) L Hemoglobin 10.8 G/DL (12.0-16.0) L Hematocrit 33.3 % (37.0-47.0) L Mean Corpuscular Volume 85 FL (80-99) Mean Corpuscular Hemoglobin 27.5 PG (27.0-31.0) Mean Corpuscular Hemoglobin Concent 32.5 G/DL (32.0-36.0) Red Cell Distribution Width 14.5 % (11.6-14.8) Platelet Count 206 K/UL (150-450) Mean Platelet Volume 9.0 FL (6.5-10.1) Neutrophils (%) (Auto) 69.0 % (45.0-75.0) Lymphocytes (%) (Auto) 16.1 % (20.0-45.0) L Monocytes (%) (Auto) 8.7 % (1.0-10.0) Eosinophils (%) (Auto) 5.3 % (0.0-3.0) H Basophils (%) (Auto) 1.0 % (0.0-2.0) Sodium Level 139 MMOL/L (136-145) Potassium Level 4.6 MMOL/L (3.5-5.1) Chloride Level 100 MMOL/L (98-107) Carbon Dioxide Level 35 MMOL/L (21-32) H Anion Gap 5 mmol/L (5-15) Blood Urea Nitrogen 24 mg/dL (7-18) H Creatinine 1.2 MG/DL (0.55-1.30) Estimat Glomerular Filtration Rate 44.4 mL/min (>60) Glucose Level 175 MG/DL (74-106) H Calcium Level 9.4 MG/DL (8.5-10.1) Intake and Output 08/13/17 08/14/17 19:00 07:00 Intake Total 300 ml 120 ml Output Total 750 ml Balance -450 ml 120 ml Intake Oral 300 ml 120 ml Output Urine Total 750 ml # Voids 3 # Bowel Movements 1 Objective General Appearance: WD/WN, no apparent distress, alert EENT: PERRL/EOMI, normal ENT inspection Neck: non-tender, normal alignment, supple, normal inspection Cardiovascular: normal peripheral pulses, normal rate, regular rhythm, no gallop/murmur, no JVD Respiratory/Chest: chest wall non-tender, lungs clear, normal breath sounds, no respiratory distress, no accessory muscle use Abdomen: normal bowel sounds, no organomegaly, no mass, decreased bowel sounds , tender Extremities: normal range of motion Neurologic: placement assistant 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 Continue ceftriaxone, azithromycin and flagyl. See pulmonary note. (2) Shortness of breath Assessment & Plan: Due to CHF and pneumonia. (3) Acute renal failure (ARF) Assessment & Plan: See nephrology note. (4) CHF exacerbation Assessment & Plan: Last LVEF=25%. See cardiology note. (5) Cardiomyopathy (6) Diabetes mellitus Assessment & Plan: Continue novolog sliding scale. (7) HTN (hypertension) Assessment & Plan: Continue hydralazine and coreg. (8) Cerebral vascular disease (9) Hemiparesis, right (10) Anemia (11) LBBB (left bundle branch block) Assessment & Plan: S/P pacemaker. See Cardiology note. (12) AICD (automatic cardioverter/defibrillator) present (13) Dysphagia Assessment & Plan: Await video swallow Status: stable Assessment/Plan Discharge home today JOVANA AGUILAR Aug 14, 2017 12:08
--- NOTE | 2017-08-14 15:43 | Pulmonology Progress Note ---
Assessment/Plan Problems: (1) Pneumonia (2) AICD (automatic cardioverter/defibrillator) present (3) COPD (chronic obstructive pulmonary disease) (4) EF 25% (5) Acute kidney injury (6) Obesity (7) Hemiplegia affecting right dominant side Assessment/Plan no new complains looks bettter\ improving check cultures titrate fio2 to sat of 92% dc planning in progress. Subjective ROS Limited/Unobtainable: No Respiratory: Reports: no symptoms Cardiovascular: Reports: no symptoms Allergies: Coded Allergies: No Known Allergies (Unverified , 12/18/16) Objective Last 24 Hour Vital Signs Date Time Temp Pulse Resp B/P (MAP) Pulse Ox O2 Delivery O2 Flow Rate FiO2 08/14/17 12:00 96.8 77 18 117/61 97 96.8 08/14/17 10:15 133/66 08/14/17 10:14 78 133/66 08/14/17 10:13 133/66 08/14/17 09:48 78 133/66 98 Nasal Cannula 2.0 08/14/17 08:00 97.7 18 115/66 94 Nasal Cannula 2.0 97.7 08/14/17 07:24 Nasal Cannula 2.0 28 08/14/17 07:24 98 Nasal Cannula 2.0 28 08/14/17 04:15 119/59 98 Nasal Cannula 2.0 08/14/17 04:00 98.2 81 18 113/47 98 98.2 08/14/17 00:00 97.5 79 18 123/68 96 Nasal Cannula 2.0 97.5 08/13/17 20:22 120/69 08/13/17 20:21 86 120/69 08/13/17 20:00 Nasal Cannula 2.0 08/13/17 20:00 98.2 86 20 120/64 96 98.2 08/13/17 19:24 Nasal Cannula 2.0 28 08/13/17 19:24 98 Nasal Cannula 2.0 28 08/13/17 16:00 97.3 75 18 110/57 100 Nasal Cannula 2.0 97.3 Intake and Output 08/13/17 08/14/17 19:00 07:00 Intake Total 300 ml 120 ml Output Total 750 ml Balance -450 ml 120 ml Intake Oral 300 ml 120 ml Output Urine Total 750 ml # Voids 3 # Bowel Movements 1 Objective General Appearance: WD/WN, Lines, tubes and drains: peripheral HEENT: normocephalic, atraumatic Neck: non-tender, normal alignment, supple Respiratory/Chest: chest wall non-tender, rhonchi Breasts: no masses Cardiovascular/Chest: normal peripheral pulses, normal rate Abdomen: normal bowel sounds, non tender Genitourinary/Rectal: normal genital exam, normal rectal exam Extremities: normal range of motion, non-tender Skin Exam: normal pigmentation 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, Laboratory Tests 08/14/17 06:25: White Blood Count 9.3, Red Blood Count 3.93L, Hemoglobin 10.8L, Hematocrit 33.3L , Mean Corpuscular Volume 85, Mean Corpuscular Hemoglobin 27.5, Mean Corpuscular Hemoglobin Concent 32.5, Red Cell Distribution Width 14.5, Platelet Count 206, Mean Platelet Volume 9.0, Neutrophils (%) (Auto) 69.0, Lymphocytes (% ) (Auto) 16.1L, Monocytes (%) (Auto) 8.7, Eosinophils (%) (Auto) 5.3H, Basophils (%) (Auto) 1.0, Sodium Level 139, Potassium Level 4.6, Chloride Level 100, Carbon Dioxide Level 35H, Anion Gap 5, Blood Urea Nitrogen 24H, Creatinine 1.2, Estimat Glomerular Filtration Rate 44.4, Glucose Level 175H, Calcium Level 9.4 Current Medications Medications (Trade) Dose Ordered Sig/[place] Route PRN Reason Start Time Stop Time Status Last Admin Dose Admin Acetaminophen (Tylenol) 500 mg Q4H PRN ORAL Mild Pain/Temp > 100.5 08/13/17 19:00 09/07/17 06:59 Albuterol/ Ipratropium (Albuterol/ Ipratropium) 3 ml Q4H PRN HHN Shortness of Breath 08/13/17 20:30 08/17/17 23:59 Aspirin (Ecotrin) 81 mg DAILY ORAL 08/14/17 09:00 09/07/17 08:59 08/14/17 10:15 Atorvastatin Calcium (Lipitor) 40 mg BEDTIME ORAL 08/13/17 21:00 09/07/17 20:59 08/13/17 20:22 Carvedilol (Coreg) 3.125 mg EVERY 12 HOURS ORAL 08/13/17 21:00 09/08/17 21:59 08/14/17 10:14 Clopidogrel Bisulfate (Plavix) 75 mg DAILY ORAL 08/14/17 09:00 09/07/17 08:59 08/14/17 10:17 Dextrose (Dextrose 50%) STAT PRN IV Hypoglycemia 08/14/17 07:00 09/07/17 06:59 Docusate Sodium (Colace) 100 mg THREE TIMES A DAY ORAL 08/14/17 09:00 09/08/17 13:29 08/14/17 14:13 Fexofenadine HCl (Rebecca) 60 mg TWICE A DAY ORAL 08/14/17 09:00 09/07/17 09:59 08/14/17 10:12 Furosemide (Lasix) 40 mg DAILY ORAL 08/14/17 09:00 09/10/17 09:14 08/14/17 10:16 Hydralazine HCl (Apresoline) 10 mg Q12HR ORAL 08/13/17 21:00 09/10/17 08:59 08/14/17 10:13 Insulin Aspart (NovoLOG) BEFORE MEALS AND HS SUBQ 08/13/17 21:00 09/07/17 11:29 08/14/17 12:54 Isosorbide Mononitrate (Imdur) 30 mg DAILY ORAL 08/14/17 09:00 09/10/17 08:59 08/14/17 10:15 Pantoprazole (Protonix) 40 mg DAILY ORAL 08/14/17 09:00 09/07/17 08:59 08/14/17 10:17 Phenol/Menthol (Chloraseptic) 1 spray Q3H PRN ORAL SORE THROAT 08/13/17 20:00 09/09/17 13:59 Polyethylene Glycol (Miralax) 17 gm BEDTIME ORAL 08/13/17 21:00 09/07/17 20:59 08/13/17 20:21 Pregabalin (Lyrica) 50 mg Q12HR ORAL 08/13/17 21:00 09/07/17 08:59 08/14/17 10:17 Promethazine HCl/ Codeine (Phenergan with Codeine) 5 ml Q4H PRN ORAL For Cough 08/13/17 19:15 3/29/18 15:14 Quetiapine Fumarate (SEROquel) 12.5 mg HSPRN PRN ORAL Agitation 08/13/17 18:00 09/12/17 17:59 Simethicone (Mylicon) 80 mg Q6H PRN ORAL Abdominal cramps 08/13/17 19:00 09/07/17 06:59 ERVIN COHN Aug 14, 2017 15:43
--- NOTE | 2017-08-14 16:13 | Cardiac Electrophysiology PN ---
Assessment/Plan Assessment/Plan 1. Status post Biotronic biventricular ICD implantation. Interrogated the device and showed Nl fx. Already has appointment with me in office for follow up. 2. CHF exacerbation with BNP >2600 . EF 25%. On Coreg 3.125 bid, Isordil 10 bid , hydralazine 10 bid. On Lasix 40 po daily and avoid JAROCHO inhibitors. 3. Hypertension. Continue current regimen 4. Renal failure with a BUN of 34 and creatinine of 2.1. Cr improved to 1.2. Avoid Aldactone, JAROCHO inhibitor, and angiotensin receptor dayna at this time. 5. PNA on Abx per Dr. Boo WALLACE RN Subjective Subjective No chest pain or SOB.Comfortable in NAD. Objective Last 24 Hour Vital Signs Date Time Temp Pulse Resp B/P (MAP) Pulse Ox O2 Delivery O2 Flow Rate FiO2 08/14/17 12:00 96.8 77 18 117/61 97 96.8 08/14/17 10:15 133/66 08/14/17 10:14 78 133/66 08/14/17 10:13 133/66 08/14/17 09:48 78 133/66 98 Nasal Cannula 2.0 08/14/17 08:00 97.7 18 115/66 94 Nasal Cannula 2.0 97.7 08/14/17 07:24 Nasal Cannula 2.0 28 08/14/17 07:24 98 Nasal Cannula 2.0 28 08/14/17 04:15 119/59 98 Nasal Cannula 2.0 08/14/17 04:00 98.2 81 18 113/47 98 98.2 08/14/17 00:00 97.5 79 18 123/68 96 Nasal Cannula 2.0 97.5 08/13/17 20:22 120/69 08/13/17 20:21 86 120/69 08/13/17 20:00 Nasal Cannula 2.0 08/13/17 20:00 98.2 86 20 120/64 96 98.2 08/13/17 19:24 Nasal Cannula 2.0 28 08/13/17 19:24 98 Nasal Cannula 2.0 28 Intake and Output 08/13/17 08/14/17 19:00 07:00 Intake Total 300 ml 120 ml Output Total 750 ml Balance -450 ml 120 ml Intake Oral 300 ml 120 ml Output Urine Total 750 ml # Voids 3 # Bowel Movements 1 Laboratory Tests Test 08/14/17 06:25 White Blood Count 9.3 K/UL (4.8-10.8) Red Blood Count 3.93 M/UL (4.20-5.40) L Hemoglobin 10.8 G/DL (12.0-16.0) L Hematocrit 33.3 % (37.0-47.0) L Mean Corpuscular Volume 85 FL (80-99) Mean Corpuscular Hemoglobin 27.5 PG (27.0-31.0) Mean Corpuscular Hemoglobin Concent 32.5 G/DL (32.0-36.0) Red Cell Distribution Width 14.5 % (11.6-14.8) Platelet Count 206 K/UL (150-450) Mean Platelet Volume 9.0 FL (6.5-10.1) Neutrophils (%) (Auto) 69.0 % (45.0-75.0) Lymphocytes (%) (Auto) 16.1 % (20.0-45.0) L Monocytes (%) (Auto) 8.7 % (1.0-10.0) Eosinophils (%) (Auto) 5.3 % (0.0-3.0) H Basophils (%) (Auto) 1.0 % (0.0-2.0) Sodium Level 139 MMOL/L (136-145) Potassium Level 4.6 MMOL/L (3.5-5.1) Chloride Level 100 MMOL/L (98-107) Carbon Dioxide Level 35 MMOL/L (21-32) H Anion Gap 5 mmol/L (5-15) Blood Urea Nitrogen 24 mg/dL (7-18) H Creatinine 1.2 MG/DL (0.55-1.30) Estimat Glomerular Filtration Rate 44.4 mL/min (>60) Glucose Level 175 MG/DL (74-106) H Calcium Level 9.4 MG/DL (8.5-10.1) Objective HEAD AND NECK: No JVD. LUNGS: Clear. CARDIOVASCULAR: Regular S1 and S2 with no gallop or murmur. ICD in the left subclavian intact. ABDOMEN: Soft. EXTREMITIES: No edema. DELORES CHAPARRO Aug 14, 2017 16:13
--- NOTE | 2017-08-14 21:21 | Infectious Diseases Prog Note ---
Assessment/Plan Assessment/Plan ASSESSMENT: The patient is a 72-year-old female with, Community-acquired pneumonia. Chest x-ray, CHF/interstitial edema with some interval improvement Normal white blood cells. Afebrile. Influenza A/B negative. COPD CHF EF : 25-30%. Cardiomyopathy Diabetes Hypertension CVA History of right hemiparesis History of cervical cancer, status post hysterectomy. Iron-deficiency anemia. History of AICD placement. Diverticulosis. History of hiatal hernia. GERD/esophagitis. Status post normal EGD and normal colonoscopy in October of 2016. PLAN: off of Ab Rx 3/ SP Zithromax and Rocephin day # 6 08/09b SP Flagyl day #2 Monitor CBC. Monitor BMP. Monitor cultures (sputum). Monitor chest x-ray. Subjective Allergies: Coded Allergies: No Known Allergies (Unverified , 12/18/16) Subjective Afebrile Objective Vital Signs Last 24 Hour Vital Signs Date Time Temp Pulse Resp B/P (MAP) Pulse Ox O2 Delivery O2 Flow Rate FiO2 08/14/17 16:00 98.1 72 19 113/58 96 98.1 08/14/17 12:00 96.8 77 18 117/61 97 96.8 08/14/17 10:15 133/66 08/14/17 10:14 78 133/66 08/14/17 10:13 133/66 08/14/17 09:48 78 133/66 98 Nasal Cannula 2.0 08/14/17 08:00 97.7 18 115/66 94 Nasal Cannula 2.0 97.7 08/14/17 07:24 Nasal Cannula 2.0 28 08/14/17 07:24 98 Nasal Cannula 2.0 28 08/14/17 04:15 119/59 98 Nasal Cannula 2.0 08/14/17 04:00 98.2 81 18 113/47 98 98.2 08/14/17 00:00 97.5 79 18 123/68 96 Nasal Cannula 2.0 97.5 Height (Feet): 5 Height (Inches): 3.00 Weight (Pounds): 177 Laboratory Tests Test 08/14/17 06:25 White Blood Count 9.3 K/UL (4.8-10.8) Red Blood Count 3.93 M/UL (4.20-5.40) L Hemoglobin 10.8 G/DL (12.0-16.0) L Hematocrit 33.3 % (37.0-47.0) L Mean Corpuscular Volume 85 FL (80-99) Mean Corpuscular Hemoglobin 27.5 PG (27.0-31.0) Mean Corpuscular Hemoglobin Concent 32.5 G/DL (32.0-36.0) Red Cell Distribution Width 14.5 % (11.6-14.8) Platelet Count 206 K/UL (150-450) Mean Platelet Volume 9.0 FL (6.5-10.1) Neutrophils (%) (Auto) 69.0 % (45.0-75.0) Lymphocytes (%) (Auto) 16.1 % (20.0-45.0) L Monocytes (%) (Auto) 8.7 % (1.0-10.0) Eosinophils (%) (Auto) 5.3 % (0.0-3.0) H Basophils (%) (Auto) 1.0 % (0.0-2.0) Sodium Level 139 MMOL/L (136-145) Potassium Level 4.6 MMOL/L (3.5-5.1) Chloride Level 100 MMOL/L (98-107) Carbon Dioxide Level 35 MMOL/L (21-32) H Anion Gap 5 mmol/L (5-15) Blood Urea Nitrogen 24 mg/dL (7-18) H Creatinine 1.2 MG/DL (0.55-1.30) Estimat Glomerular Filtration Rate 44.4 mL/min (>60) Glucose Level 175 MG/DL (74-106) H Calcium Level 9.4 MG/DL (8.5-10.1) QUETA LENTZ M.D. Aug 14, 2017 21:21
--- NOTE | 2017-08-14 23:16 | General Progress Note ---
Assessment/Plan Assessment/Plan 1. Anxiety disorder. 2. Dementia with behavior disturbance. 3. Encephalopathy. PLAN: We will continue current medications. Provide the patient with supportive therapy and reality orientation. We will continue to follow and readjust the medications. Subjective Date patient seen: Aug 12, 2017 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: Reports: anxiety, depressed, emotional problems Allergies: Coded Allergies: No Known Allergies (Unverified , 12/18/16) Objective Last 24 Hour Vital Signs Date Time Temp Pulse Resp B/P (MAP) Pulse Ox O2 Delivery O2 Flow Rate FiO2 08/14/17 16:00 98.1 72 19 113/58 96 98.1 08/14/17 12:00 96.8 77 18 117/61 97 96.8 08/14/17 10:15 133/66 08/14/17 10:14 78 133/66 08/14/17 10:13 133/66 08/14/17 09:48 78 133/66 98 Nasal Cannula 2.0 08/14/17 08:00 97.7 18 115/66 94 Nasal Cannula 2.0 97.7 08/14/17 07:24 Nasal Cannula 2.0 28 08/14/17 07:24 98 Nasal Cannula 2.0 28 08/14/17 04:15 119/59 98 Nasal Cannula 2.0 08/14/17 04:00 98.2 81 18 113/47 98 98.2 08/14/17 00:00 97.5 79 18 123/68 96 Nasal Cannula 2.0 97.5 Intake and Output 08/13/17 08/14/17 19:00 07:00 Intake Total 300 ml 120 ml Output Total 750 ml Balance -450 ml 120 ml Intake Oral 300 ml 120 ml Output Urine Total 750 ml # Voids 3 # Bowel Movements 1 Laboratory Tests 08/14/17 06:25: White Blood Count 9.3, Red Blood Count 3.93L, Hemoglobin 10.8L, Hematocrit 33.3L , Mean Corpuscular Volume 85, Mean Corpuscular Hemoglobin 27.5, Mean Corpuscular Hemoglobin Concent 32.5, Red Cell Distribution Width 14.5, Platelet Count 206, Mean Platelet Volume 9.0, Neutrophils (%) (Auto) 69.0, Lymphocytes (% ) (Auto) 16.1L, Monocytes (%) (Auto) 8.7, Eosinophils (%) (Auto) 5.3H, Basophils (%) (Auto) 1.0, Sodium Level 139, Potassium Level 4.6, Chloride Level 100, Carbon Dioxide Level 35H, Anion Gap 5, Blood Urea Nitrogen 24H, Creatinine 1.2, Estimat Glomerular Filtration Rate 44.4, Glucose Level 175H, Calcium Level 9.4 Height (Feet): 5 Height (Inches): 3.00 Weight (Pounds): 177 General Appearance: WD/WN, no apparent distress, alert, confused Teresa Douglas M.D. Aug 14, 2017 23:16
--- NOTE | 2017-08-14 23:58 | General Progress Note ---
Assessment/Plan Assessment/Plan 1. Anemia due to underlying chronic disease. --> Anemia workup reviewed. --> Iron 24, TIBC 284, B12 690, Folate 10.9 --> Hemoglobin goal is above 7. Hgb levels continue to improve. No active bleeding. --> Does not require prbc at this time. 2. Anemia of iron deficiency. --> Iron low 24. Currently, does not appear to be severe iron deficiency. --> Continue to closely monitor. --> Hemoglobin goal is above 7 and anemia workup has been reviewed. --> Reticulocyte count 1.9 --> consider iron treatment 3. Cervical cancer, status post total abdominal hysterectomy 4. Pneumonia. --> She is on broad-spectrum antibiotics as per Pulmonary team. --> Monitor for improvement. 5. Pulmonary hypertension. 6. Obesity. 7. Diabetes mellitus. 8. Encephalopathy. Subjective Date patient seen: Aug 14, 2017 HEENT: Denies: no symptoms, eye pain, blurred vision, tearing, double vision, ear pain, ear discharge, nose pain, nose congestion, throat pain, throat swelling, mouth pain, mouth swelling, other Cardiovascular: Denies: no symptoms, chest pain, edema, irregular heart rate, lightheadedness, palpitations, syncope, other Respiratory: Denies: no symptoms, cough, orthopnea, shortness of breath, SOB with excertion, SOB at rest, sputum, stridor, wheezing, other Gastrointestinal/Abdominal: Denies: no symptoms, abdomen distended, abdominal pain, black stools, tarry stools, blood in stool, constipated, diarrhea, difficulty swallowing, nausea, poor appetite, poor fluid intake, rectal bleeding , vomiting, other Genitourinary: Denies: no symptoms, burning, discharge, frequency, flank pain, hematuria, incontinence, pain, urgency, other 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: Denies: no symptoms, anxiety, depressed, emotional problems, headache, numbness, paresthesia, pre-existing deficit, seizure, tingling, tremors, weakness, other Hematologic/Lymphatic: Reports: anemia Allergies: Coded Allergies: No Known Allergies (Unverified , 12/18/16) Subjective No major events overnight. Stable. Pending discharge. Objective Last 24 Hour Vital Signs Date Time Temp Pulse Resp B/P (MAP) Pulse Ox O2 Delivery O2 Flow Rate FiO2 08/14/17 16:00 98.1 72 19 113/58 96 98.1 08/14/17 12:00 96.8 77 18 117/61 97 96.8 08/14/17 10:15 133/66 08/14/17 10:14 78 133/66 08/14/17 10:13 133/66 08/14/17 09:48 78 133/66 98 Nasal Cannula 2.0 08/14/17 08:00 97.7 18 115/66 94 Nasal Cannula 2.0 97.7 08/14/17 07:24 Nasal Cannula 2.0 28 08/14/17 07:24 98 Nasal Cannula 2.0 28 08/14/17 04:15 119/59 98 Nasal Cannula 2.0 08/14/17 04:00 98.2 81 18 113/47 98 98.2 08/14/17 00:00 97.5 79 18 123/68 96 Nasal Cannula 2.0 97.5 Intake and Output 08/13/17 08/14/17 19:00 07:00 Intake Total 300 ml 120 ml Output Total 750 ml Balance -450 ml 120 ml Intake Oral 300 ml 120 ml Output Urine Total 750 ml # Voids 3 # Bowel Movements 1 Laboratory Tests 08/14/17 06:25: White Blood Count 9.3, Red Blood Count 3.93L, Hemoglobin 10.8L, Hematocrit 33.3L , Mean Corpuscular Volume 85, Mean Corpuscular Hemoglobin 27.5, Mean Corpuscular Hemoglobin Concent 32.5, Red Cell Distribution Width 14.5, Platelet Count 206, Mean Platelet Volume 9.0, Neutrophils (%) (Auto) 69.0, Lymphocytes (% ) (Auto) 16.1L, Monocytes (%) (Auto) 8.7, Eosinophils (%) (Auto) 5.3H, Basophils (%) (Auto) 1.0, Sodium Level 139, Potassium Level 4.6, Chloride Level 100, Carbon Dioxide Level 35H, Anion Gap 5, Blood Urea Nitrogen 24H, Creatinine 1.2, Estimat Glomerular Filtration Rate 44.4, Glucose Level 175H, Calcium Level 9.4 Height (Feet): 5 Height (Inches): 3.00 Weight (Pounds): 177 General Appearance: no apparent distress Neck: normal alignment Cardiovascular: normal rate Respiratory/Chest: decreased breath sounds Edema: trace edema Skin: warm/dry Kleynberg,Daljit L. Aug 14, 2017 23:57
--- NOTE | 2017-08-15 10:55 | Diagnostic Imaging Report ---
APPROVED REPORT CPT Code: 58830 Present Symptoms Comments: PAIN BILATERAL: Imaging reveals a patent deep venous system bilaterally. There is no evidence of thrombus within the femoral, popliteal or tibial segments. The greater saphenous veins are also within normal limits. Doppler indicates normal spontaneous flow within these segments.
--- NOTE | 2017-08-18 05:15 | Discharge Summary 2 SIG ---
DATE OF ADMISSION: 08/08/2017 DATE OF DISCHARGE: 08/14/2017 REASON FOR ADMISSION: 72 years old female with history of diabetes, COPD, CHF, cardiomyopathy, complete left bundle-branch block, status post AICD, DM type 2, HTN, history of CVA with right hemiplegia, hypertension, history of cervical cancer, status post total abdominal hysterectomy, iron-deficiency anemia, presented with chief complaint of shortness of breath. The patient initially was presented to [facility] emergency department. Chest x-ray revealed right middle lobe pneumonia. The patient was subsequently transferred to [facility] for further management. The patient was admitted with right middle lobe pneumonia and shortness of breath. HOSPITAL COURSE: The patient admitted. Cardiology, Hematology, and Infectious Disease specialists were consulted along with GI, Pulmonology, and Psychiatric consults. The patient admitted to telemetry floor. The patient started on empiric antibiotics. Unable to obtain sputum culture, since cough was nonproductive. Influenza screen test was negative. Antitussive provided as needed. Membership Advisor closely follow. Venous duplex of bilateral lower extremities was negative. Video swallow evaluation was ordered and revealed mild to moderate dysphagia. Diet provided as per speech therapist recommendation with strict aspiration reflux precaution. Electrical And Radio Mechanic followed the patient. Echocardiogram revealed ejection fraction of 30% to 35%, right ventricular systolic pressure of 46 consistent with mild pulmonary hypertension, global left ventricular hypokinesis, and severe mitral regurgitation. Electrical And Radio Mechanic recommended medical management of systolic heart failure. The patient was on beta-dayna, Isordil, hydralazine, Lasix. Electrical And Radio Mechanic recommended to avoid JAROCHO inhibitor, Aldactone, and ARB for now in lieu of the renal failure. Diuresis provided. Cardiorenal parameters and volumes were closely monitored. Electrolytes were corrected as needed. Nephrotoxics were avoided. AICD interrogation revealed normal functioning. Blood sugar was managed with sliding scale of insulin. Renal ultrasound revealed no evidence of hydronephrosis and showed normal echogenicity of bilateral kidneys. Anemia workup was consistent with anemia of chronic disease and iron deficiency. The patient was started on the IV Venofer. Counts were closely monitored and remained at the baseline, no need for transfusion. Psychiatrist followed. Psychiatric medications regimen was optimized as per psychiatrist. DVT and GI prophylaxes provided. Bowel regimen instituted. Creatinine down to 1.2 from initial 2.1. The patient was stable for discharge home. FINAL DIAGNOSES: 1. Pneumonia, community acquired 2. Automatic implantable cardiac defibrillator. 3. Chronic obstructive pulmonary disease. 4. Acute renal failure, resolved. 5. Obesity. 6. Cerebrovascular accident with right hemiplegia. 7. Diabetes mellitus. 8. Acute systolic and diastolic congestive heart failure exacerbation. 9. Cardiomyopathy with ejection fraction of 35%. 10. Mild pulmonary hypertension. 11. Severe mitral regurgitation. 12. Dysphagia. 13. Anemia of chronic disease, iron deficiency anemia. DISCHARGE MEDICATIONS: See medication reconciliation list. DISCHARGE INSTRUCTIONS: The patient was discharged home. Follow up with the primary care provider next week. Follow up with [facility] as outpatient for further management of CHF. Brendan Wright M.D. [facility] N.PAlyssa DR: AASHISH JOB#: [id number] CC: FERNANDO
== END 2017-08-14 18:05 | disposition home or self-care (01) | DRG 193 ==
LOC: 2E 04:54 → 4W 08-13 18:17
DX: J18.9 Pneumonia, unspecified organism (principal); G93.40 Encephalopathy, unspecified; I50.43 Acute on chronic combined systolic (congestive) and diastolic (congestive) heart failure; N17.9 Acute kidney failure, unspecified; R13.10 Dysphagia, unspecified; I13.0 Hypertensive heart and chronic kidney disease with heart failure and stage 1 through stage 4 chronic kidney disease, or unspecified chronic kidney disease; I69.951 Hemiplegia and hemiparesis following unspecified cerebrovascular disease affecting right dominant side; J44.0 Chronic obstructive pulmonary disease with (acute) lower respiratory infection; F03.91 Unspecified dementia, unspecified severity, with behavioral disturbance; I42.9 Cardiomyopathy, unspecified; I34.0 Nonrheumatic mitral (valve) insufficiency; E66.9 Obesity, unspecified; D50.9 Iron deficiency anemia, unspecified; E11.40 Type 2 diabetes mellitus with diabetic neuropathy, unspecified; E11.22 Type 2 diabetes mellitus with diabetic chronic kidney disease; N18.9 Chronic kidney disease, unspecified; I44.7 Left bundle-branch block, unspecified; I27.20 Pulmonary hypertension, unspecified; Z79.4 Long term (current) use of insulin; Z95.810 Presence of automatic (implantable) cardiac defibrillator; Z85.41 Personal history of malignant neoplasm of cervix uteri; Z90.710 Acquired absence of both cervix and uterus
CPT/HCPCS: 36415; 71045; 74230; 76770; 80048; 80053; 80162; 82270; 82378; 82550; 82607; 82728; 82746; 82962; 83540; 83550; 83615; 83735; 83880; 84100; 84133; 84300; 84484; 84550; 85007; 85025; 85044; 85060; 85610; 85651; 85730; 86710; 89050; 93306; 93970; 94640; 94664; 94760; J1815; J7620

== ENCOUNTER 2017-09-30 19:33 | Inpatient (IN) | payer MEDICARE, OTHER ==
[~2017-09-30] VITALS: Ht 152.4 cm; Wt 82.6 kg
[2017-09-30] MEDS ORDERED: DOCUSATE SODIU250 MG ORAL (19:47)
[2017-09-30 19:50] VITALS: BP 128/66
[2017-09-30] MEDS ORDERED: Sodium Chloride 500ML 500 ML IV ONE (19:57)
[2017-09-30] MEDS ORDERED: Dicyclomine HCl 10mg/5ml oral soln ORAL ONE (20:00)
[2017-09-30] MEDS ORDERED: Lidocaine 2% Visc 15ml soln ORAL ONE (20:00)
[2017-09-30] MEDS ORDERED: Mylanta II UD 30ml ORAL ONE (20:00)
--- NOTE | 2017-09-30 20:37 | Emergency Room Report ---
History of Present Illness General Chief Complaint: Dyspnea/Respdistress Source: Patient, Medical Record Present Illness HPI Patient presents emergency department today complaining of shortness breath and abdominal pain. Patient states that she develop acute onset epigastric pain rating into her chest associates some shortness of breath. She states that she has not had this before. She denies any leg pain leg swelling. Patient appears very uncomfortable symptoms noted to be highly severe. She thinks that she might have gastritis.No other modifying factors. No other associated signs and symptoms. No other complaints were noted. Allergies: Coded Allergies: No Known Allergies (Unverified , 12/18/16) Patient History Past Medical History: HTN, CAD Past Surgical History: pacemaker Pertinent Family History: none Social History: Denies: smoking, alcohol use, drug use Now: No Reviewed Nursing Documentation: PMH: Agreed; PSxH: Agreed Nursing Documentation-PMH Past Medical History: No History, Except For Hx Cardiac Problems: Yes - CHF Hx Hypertension: Yes Hx Pacemaker: Yes Hx Asthma: No Hx COPD: Yes Hx Diabetes: Yes Hx Cancer: Yes - Uterine Tumor Hx Gastrointestinal Problems: Yes Hx Dialysis: No - CKD Hx Neurological Problems: Yes - CVA Hx Cerebrovascular Accident: Yes - in 2007 and 2008 with right-sided weakness Hx Transient Ischemic Attacks: No Hx Dementia: No Hx Alzheimer's Disease: No Hx Parkinson's Disease: No Hx Meningitis: No Hx Encephalitis: No Hx Seizures: No Hx Epilepsy: No Hx Multiple Sclerosis: No Hx Cerebral Palsy: No Hx Amyotrophic Lat Sclerosis: No Hx [place] Syndrome: No Hx Paralysis: Yes - rt sided minor paralysis d/t CVA Hx Peripheral Neuropathy: No Hx Spinal Cord Injury: No Hx Head Trauma: No Hx Traumatic Brain Injury: No Hx Memory Loss: No Hx Concentration Difficulty: No Hx Speech Problem: No Hx Tremors: No Hx Vertigo: No Hx Dizziness: Yes Hx Syncope: No Hx Headaches: No Hx Aphasia: No Hx Dysphasia: No Hx Numbness: No Hx Weakness: No Hx Fatigue: No Hx Neurologic Surgery: No Hx Brain Shunt: No Review of Systems All Other Systems: negative except mentioned in HPI Physical Exam Vital Signs Date Time Temp Pulse Resp B/P (MAP) Pulse Ox O2 Delivery O2 Flow Rate FiO2 09/30/17 19:35 97.7 92 21 132/64 95 Room Air 97.7 Sp02 EP Interpretation: reviewed, normal General Appearance: alert, moderate distress Head: atraumatic Eyes: bilateral eye normal inspection ENT: normal ENT inspection, hearing 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, normal voice Neck: normal inspection, full range of motion, supple, no bony tend Respiratory: normal inspection, lungs clear, normal breath sounds, no respiratory distress, no retraction, no wheezing Cardiovascular #1: regular rate, rhythm, no edema Gastrointestinal: normal inspection, normal bowel sounds, soft, no guarding, no hernia, tenderness - Epigastric Genitourinary: no CVA tenderness Musculoskeletal: normal inspection, back normal, normal range of motion Neurologic: normal inspection, alert, responsive, speech normal Psychiatric: depressed affect, anxious Skin: normal inspection, normal color, no rash Medical Decision Making Diagnostic Impression: Primary Impression: Abdominal pain Additional Impression: ACS (acute coronary syndrome) ER Course Patient presents emergency department today complaining of epigastric pain chest discomfort. Given considerations include pneumonia bronchitis asthma COPD acute coronary syndrome gastritis just to name a few.Given the severity of the patient's presentation I felt this is a highly complex patient. This patient required extensive workup. Patient's laboratory workup was not impressive however given patient's presentation, or chest triple the patient require admission to the hospital. Case was discussed with Dr. Brendan Wright for admission. Patient will be admitted to telemetry for further treatment. Labs Test 09/30/17 20:30 09/30/17 21:00 White Blood Count 10.2 K/UL (4.8-10.8) Red Blood Count 4.05 M/UL (4.20-5.40) Hemoglobin 10.8 G/DL (12.0-16.0) Hematocrit 34.0 % (37.0-47.0) Mean Corpuscular Volume 84 FL (80-99) Mean Corpuscular Hemoglobin 26.5 PG (27.0-31.0) Mean Corpuscular Hemoglobin Concent 31.7 G/DL (32.0-36.0) Red Cell Distribution Width 14.4 % (11.6-14.8) Platelet Count 208 K/UL (150-450) Mean Platelet Volume 9.4 FL (6.5-10.1) Neutrophils (%) (Auto) 71.6 % (45.0-75.0) Lymphocytes (%) (Auto) 18.1 % (20.0-45.0) Monocytes (%) (Auto) 6.2 % (1.0-10.0) Eosinophils (%) (Auto) 3.1 % (0.0-3.0) Basophils (%) (Auto) 1.0 % (0.0-2.0) Prothrombin Time 9.8 SEC (9.30-11.50) Prothromb Time International Ratio 0.9 (0.9-1.1) Activated Partial Thromboplast Time 26 SEC (23-33) Urine Color Pale yellow Urine Appearance Clear Urine pH 6.5 (4.5-8.0) Urine Specific [place] 1.010 (1.005-1.035) Urine Protein Negative (NEGATIVE) Urine Glucose (UA) Negative (NEGATIVE) Urine Ketones Negative (NEGATIVE) Urine Occult Blood Negative (NEGATIVE) Urine Nitrite Negative (NEGATIVE) Urine Bilirubin Negative (NEGATIVE) Urine Urobilinogen Normal MG/DL (0.0-1.0) Urine Leukocyte Esterase 2+ (NEGATIVE) Urine RBC 0-2 /HPF (0 - 2) Urine WBC 2-4 /HPF (0 - 2) Urine Squamous Epithelial Cells Few /LPF (NONE/OCC) Urine Bacteria Few /HPF (NONE) EKG Diagnostic Results Rate: normal Rhythm: other - Atrial sensed, paced rhythm ST Segments: no acute changes ASA given to the pt in ED: Yes Rhythm Strip Diag. Results EP Interpretation: yes Rate: 82 Rhythm: NSR, no PVC's, no ectopy Chest X-Ray Diagnostic Results Chest X-Ray Diagnostic Results : Chest X-Ray Ordered: Yes # of Views/Limited/Complete: 1 View Indication: Chest Pain EP Interpretation: Yes Interpretation: no consolidation, no effusion, no pneumothorax, other Last Vital Signs Date Time Temp Pulse Resp B/P (MAP) Pulse Ox O2 Delivery O2 Flow Rate FiO2 09/30/17 19:35 97.7 92 21 132/64 95 Room Air 97.7 Status: improved Disposition: ADMITTED INPATIENT Condition: Serious Referrals: NON PHYSICIAN (PCP) HARIKA HAAS M.D. Sep 30, 2017 20:37
[2017-09-30 20:50] VITALS: BP 127/66
[2017-09-30] MEDS ORDERED: Mylanta II UD 30ml ORAL PRN (21:00)
[2017-09-30] MEDS ORDERED: Miralax 17gm pkt ORAL PRN (21:00)
[2017-09-30] MEDS ORDERED: Nitroglycerin Subl 0.4mg tab SL PRN (21:00)
[2017-09-30 21:10] LABS: EOSINOPHILS % (AUTO) 3.1 % (0.0-3.0); HEMOGLOBIN 10.8 G/DL (12.0-16.0); LYMPHOCYTES % (AUTO) 18.1 % (20.0-45.0); MEAN CORPUSCULAR VOLUME 84 FL (80-99); MONOCYTES % (AUTO) 6.2 % (1.0-10.0); NEUTROPHILS % (AUTO) 71.6 % (45.0-75.0); PLATELET COUNT 208 K/UL (150-450); RED BLOOD COUNT 4.05 M/UL (4.20-5.40); RED CELL DISTRIBUTION WIDTH 14.4 % (11.6-14.8); WHITE BLOOD COUNT 10.2 K/UL (4.8-10.8)
[2017-09-30 21:10] LABS: APPEARANCE,URINE CLEAR; BILIRUBIN, URINE NEGATIVE (NEGATIVE); COLOR,URINE PALE YELLOW; GLUCOSE, URINE (UA) NEGATIVE (NEGATIVE); KETONES,URINE NEGATIVE (NEGATIVE); LEUKOCYTE ESTERASE ,URINE 2+ (NEGATIVE); NITRITE,URINE NEGATIVE (NEGATIVE); PH,URINE 6.5 (4.5-8.0); PROTEIN,URINE NEGATIVE (NEGATIVE); UROBILINOGEN,URINE NORMAL MG/DL (0.0-1.0)
[2017-09-30 21:13] LABS: INR 0.9 (0.9-1.1)
[2017-09-30 21:25] LABS: ALANINE AMINOTRANSFERASE 16 U/L (12-78); ALBUMIN 3.1 G/DL (3.4-5.0); ALBUMIN/GLOBULIN RATIO 0.6 (1.0-2.7); ALKALINE PHOSPHATASE 148 U/L (46-116); ANION GAP 9 mmol/L (5-15); ASPARTATE AMINO TRANSFERASE 21 U/L (15-37); BILIRUBIN,TOTAL 0.4 MG/DL (0.2-1.0); BLOOD UREA NITROGEN 22 mg/dL (7-18); CALCIUM 8.5 MG/DL (8.5-10.1); CARBON DIOXIDE 27 MMOL/L (21-32); CHLORIDE 104 MMOL/L (98-107); CKMB 0.7 NG/ML (0.0-3.6); CREATINE KINASE 48 U/L (26-308); CREATININE 1.1 MG/DL (0.55-1.30); POTASSIUM 3.9 MMOL/L (3.5-5.1); SODIUM 140 MMOL/L (136-145)
[2017-09-30 21:50] VITALS: BP 125/62
[2017-09-30] MEDS: Heparin 5000 units/ml inj SUBQ SCH (23:00)
[2017-09-30] MEDS: Carvedilol 6.25mg Tab ORAL SCH (23:00)
[2017-10-01] VITALS: BP 103/58
[2017-10-01 04:00] VITALS: BP 120/66
[2017-10-01] MEDS: NovoLOG Insulin Flexpen SUBQ SCH ×4 (06:30→20:26)
[2017-10-01 08:00] VITALS: BP 112/66
[2017-10-01] MEDS: Morphine Sulfate 4mg/ml Inj IVP PRN (08:06)
[2017-10-01] MEDS: Lyrica 50mg cap ORAL SCH ×2 (08:06→17:28)
[2017-10-01] MEDS: Heparin 5000 units/ml inj SUBQ SCH ×2 (08:07→20:24)
[2017-10-01 08:58] LABS: BASOPHILS % (AUTO) 0.5 % (0.0-2.0); EOSINOPHILS % (AUTO) 4.6 % (0.0-3.0); HEMATOCRIT 32.2 % (37.0-47.0); HEMOGLOBIN 10.4 G/DL (12.0-16.0); LYMPHOCYTES % (AUTO) 18.5 % (20.0-45.0); MEAN CORPUSCULAR VOLUME 84 FL (80-99); MONOCYTES % (AUTO) 8.1 % (1.0-10.0); NEUTROPHILS % (AUTO) 68.2 % (45.0-75.0); PLATELET COUNT 209 K/UL (150-450); RED BLOOD COUNT 3.86 M/UL (4.20-5.40); RED CELL DISTRIBUTION WIDTH 14.3 % (11.6-14.8); WHITE BLOOD COUNT 8.6 K/UL (4.8-10.8)
--- NOTE | 2017-10-01 08:59 | Diagnostic Imaging Report ---
Indication: Cough Technique: XRAY Chest 1v Comparison: 08/11/2017 Findings: Cardiac silhouette is prominent. There is a left chest pacemaker. Pulmonary vascular congestion is noted. Interstitial edema/infiltrates are seen. Osseous structures are stable. Impression: Cardiomegaly with pulmonary vascular congestion. Interstitial edema/infiltrates. Clinical correlation/follow-up recommended.
[2017-10-01] MEDS: Carvedilol 6.25mg Tab ORAL SCH ×2 (09:00→20:22)
[2017-10-01 09:27] LABS: ALANINE AMINOTRANSFERASE 16 U/L (12-78); ALBUMIN/GLOBULIN RATIO 0.7 (1.0-2.7); ALKALINE PHOSPHATASE 114 U/L (46-116); AMYLASE 49 U/L (25-115); ANION GAP 10 mmol/L (5-15); ASPARTATE AMINO TRANSFERASE 15 U/L (15-37); BILIRUBIN,TOTAL 0.5 MG/DL (0.2-1.0); BLOOD UREA NITROGEN 21 mg/dL (7-18); CALCIUM 8.5 MG/DL (8.5-10.1); CARBON DIOXIDE 26 MMOL/L (21-32); CHLORIDE 107 MMOL/L (98-107); SODIUM 143 MMOL/L (136-145)
[2017-10-01 12:00] VITALS: BP 109/61
--- NOTE | 2017-10-01 13:43 | History & Physical ---
History and Physical History & Physicial Dictated for Int Med-Dr Wright no. [id number]. JOVANA AGUILAR Oct 01, 2017 13:43
--- NOTE | 2017-10-01 14:38 | Consultation ---
History of Present Illness General Date patient seen: Oct 01, 2017 Chief Complaint: Dyspnea/Respdistress Reason for Consultation: dysnpnea Present Illness HPI 72 year old female with hx of Endstage heart disease, with EF of 25%, ICD, DM, presented to emergency department today complaining of shortness breath and abdominal pain. Patient states that she develop acute onset epigastric pain rating into her chest associates some shortness of breath. She was found to have pulmonary edema and admitted to telemetry for further evaluation. Her shortness of breath has improved somewhat, but she still c/o of gastric pain. Allergies: Coded Allergies: No Known Allergies (Unverified , 12/18/16) Medication History Scheduled Aspirin Ec* (Aspirin Ec*), 81 MG ORAL DAILY, (Reported) Atorvastatin Calcium* (Atorvastatin Calcium*), 40 MG ORAL BEDTIME, (Reported) Carvedilol (Coreg), 6.25 MG ORAL EVERY 12 HOURS Clopidogrel* (Clopidogrel*), 75 MG ORAL DAILY, (Reported) Furosemide* (Lasix*), 20 MG ORAL DAILY, (Reported) Insulin Aspart (Novolog Flexpen), 0 UNITS SUBQ BEFORE MEALS AND HS Insulin Glargine (Lantus), 0 SUBQ BEDTIME, (Reported) Isosorbide Dinitrate* (Isordil*), 30 MG ORAL DAILY, (Reported) Loratadine (Loratadine), 10 MG PO DAILY, (Reported) Polyethylene Glycol 3350* (Polyethylene Glycol 3350*), 17 GM ORAL DAILY, ( Reported) Pregabalin (Lyrica), 50 MG ORAL BID, (Reported) Spironolactone* (Aldactone*), 25 MG ORAL DAILY, (Reported) Sucralfate (Carafate), 1 GM ORAL FOUR TIMES A DAY Scheduled PRN Acetaminophen* (Tylenol Extra Strength*), 500 MG ORAL Q6H PRN for Mild Pain/ Temp > 100.5, (Reported) Miscellaneous Medications Docusate Sodium* (Docusate Sodium*), 250 MG ORAL, (Reported) Simethicone (Mi-Acid), 80 MG PO, (Reported) Discontinued Medications Esomeprazole Magnesium (Nexium), 40 MG ORAL DAILY, (Reported) Discontinued Reason: MD discontinued med Patient History Healthcare decision maker Resuscitation status Full Code Advanced Directive on File Past Medical/Surgical History Past Medical/Surgical History: (1) AICD (automatic cardioverter/defibrillator) present (2) Hemiparesis, right (3) Cardiomyopathy (4) EF 25% (5) COPD (chronic obstructive pulmonary disease) Review of Systems All Other Systems: negative except mentioned in HPI Physical Exam General Appearance: WD/WN Lines, tubes and drains: peripheral HEENT: normocephalic, atraumatic Neck: non-tender, normal alignment Respiratory/Chest: chest wall non-tender, lungs clear, normal breath sounds Breasts: no masses Cardiovascular/Chest: normal peripheral pulses, normal rate Abdomen: normal bowel sounds, non tender Genitourinary/Rectal: normal genital exam, normal rectal exam Extremities: normal range of motion, non-tender Skin Exam: normal pigmentation Neurologic: lead cashier II-XII 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, no motor/sensory deficits Last 24 Hour Vital Signs Date Time Temp Pulse Resp B/P (MAP) Pulse Ox O2 Delivery O2 Flow Rate FiO2 10/01/17 12:00 75 10/01/17 12:00 98.1 81 20 109/61 99 Room Air 98.1 10/01/17 09:00 70 103/58 10/01/17 08:45 97.2 10/01/17 08:00 76 10/01/17 08:00 98.1 75 20 112/66 97 Room Air 98.1 10/01/17 04:00 81 10/01/17 04:00 97.2 81 20 120/66 95 Room Air 97.2 10/01/17 00:00 75 10/01/17 00:00 97.9 81 20 103/58 94 Room Air 97.9 09/30/17 23:00 82 125/62 09/30/17 22:40 98.0 82 22 125/62 97 Room Air 98.0 09/30/17 21:50 98.0 82 22 125/62 97 Room Air 98.0 09/30/17 20:50 97.7 88 23 127/66 96 Room Air 97.7 09/30/17 19:50 97.7 92 21 128/66 97 Room Air 97.7 09/30/17 19:50 92 21 Room Air 09/30/17 19:35 97.7 92 21 132/64 95 Room Air 97.7 Intake and Output 09/30/17 10/01/17 19:00 07:00 Intake Total 550 ml Balance 550 ml Intake IV Total 550 ml # Voids 5 # Bowel Movements 1 Laboratory Tests Test 09/30/17 20:30 09/30/17 21:00 10/01/17 07:43 White Blood Count 10.2 K/UL (4.8-10.8) 8.6 K/UL (4.8-10.8) Red Blood Count 4.05 M/UL (4.20-5.40) L 3.86 M/UL (4.20-5.40) L Hemoglobin 10.8 G/DL (12.0-16.0) L 10.4 G/DL (12.0-16.0) L Hematocrit 34.0 % (37.0-47.0) L 32.2 % (37.0-47.0) L Mean Corpuscular Volume 84 FL (80-99) 84 FL (80-99) Mean Corpuscular Hemoglobin 26.5 PG (27.0-31.0) L 27.0 PG (27.0-31.0) Mean Corpuscular Hemoglobin Concent 31.7 G/DL (32.0-36.0) L 32.3 G/DL (32.0-36.0) Red Cell Distribution Width 14.4 % (11.6-14.8) 14.3 % (11.6-14.8) Platelet Count 208 K/UL (150-450) 209 K/UL (150-450) Mean Platelet Volume 9.4 FL (6.5-10.1) 9.7 FL (6.5-10.1) Neutrophils (%) (Auto) 71.6 % (45.0-75.0) 68.2 % (45.0-75.0) Lymphocytes (%) (Auto) 18.1 % (20.0-45.0) L 18.5 % (20.0-45.0) L Monocytes (%) (Auto) 6.2 % (1.0-10.0) 8.1 % (1.0-10.0) Eosinophils (%) (Auto) 3.1 % (0.0-3.0) H 4.6 % (0.0-3.0) H Basophils (%) (Auto) 1.0 % (0.0-2.0) 0.5 % (0.0-2.0) Prothrombin Time 9.8 SEC (9.30-11.50) 10.0 SEC (9.30-11.50) Prothromb Time International Ratio 0.9 (0.9-1.1) 1.0 (0.9-1.1) Activated Partial Thromboplast Time 26 SEC (23-33) 23 SEC (23-33) Sodium Level 140 MMOL/L (136-145) 143 MMOL/L (136-145) Potassium Level 3.9 MMOL/L (3.5-5.1) 4.0 MMOL/L (3.5-5.1) Chloride Level 104 MMOL/L (98-107) 107 MMOL/L (98-107) Carbon Dioxide Level 27 MMOL/L (21-32) 26 MMOL/L (21-32) Anion Gap 9 mmol/L (5-15) 10 mmol/L (5-15) Blood Urea Nitrogen 22 mg/dL (7-18) H 21 mg/dL (7-18) H Creatinine 1.1 MG/DL (0.55-1.30) 1.0 MG/DL (0.55-1.30) Estimat Glomerular Filtration Rate 49.1 mL/min (>60) 54.8 mL/min (>60) Glucose Level 210 MG/DL (74-106) H 107 MG/DL (74-106) #H Calcium Level 8.5 MG/DL (8.5-10.1) 8.5 MG/DL (8.5-10.1) Total Bilirubin 0.4 MG/DL (0.2-1.0) 0.5 MG/DL (0.2-1.0) Aspartate Amino Transf (AST/SGOT) 21 U/L (15-37) 15 U/L (15-37) Alanine Aminotransferase (ALT/SGPT) 16 U/L (12-78) 16 U/L (12-78) Alkaline Phosphatase 148 U/L (46-116) H 114 U/L (46-116) Total Creatine Kinase 48 U/L (26-308) Creatine Kinase MB 0.7 NG/ML (0.0-3.6) Creatine Kinase MB Relative Index 1.4 Troponin I 0.003 ng/mL (0.000-0.056) Pro-B-Type Natriuretic Peptide 2954 pg/mL (0-125) H Total Protein 7.9 G/DL (6.4-8.2) 7.6 G/DL (6.4-8.2) Albumin 3.1 G/DL (3.4-5.0) L 3.0 G/DL (3.4-5.0) L Globulin 4.8 g/dL 4.6 g/dL Albumin/Globulin Ratio 0.6 (1.0-2.7) L 0.7 (1.0-2.7) L Lipase 164 U/L (73-393) 140 U/L (73-393) Urine Color Pale yellow Urine Appearance Clear Urine pH 6.5 (4.5-8.0) Urine Specific [place] 1.010 (1.005-1.035) Urine Protein Negative (NEGATIVE) Urine Glucose (UA) Negative (NEGATIVE) Urine Ketones Negative (NEGATIVE) Urine Occult Blood Negative (NEGATIVE) Urine Nitrite Negative (NEGATIVE) Urine Bilirubin Negative (NEGATIVE) Urine Urobilinogen Normal MG/DL (0.0-1.0) Urine Leukocyte Esterase 2+ (NEGATIVE) H Urine RBC 0-2 /HPF (0 - 2) Urine WBC 2-4 /HPF (0 - 2) Urine Squamous Epithelial Cells Few /LPF (NONE/OCC) Urine Bacteria Few /HPF (NONE) Hemoglobin A1c 4.5 % (4.3-6.0) Amylase Level 49 U/L (25-115) Thyroid Stimulating Hormone (TSH) 4.467 uiU/mL (0.358-3.740) Height (Feet): 5 Height (Inches): 0.00 Weight (Pounds): 172 Medications Current Medications Medications (Trade) Dose Ordered Sig/[place] Route PRN Reason Start Time Stop Time Status Last Admin Dose Admin Acetaminophen (Tylenol) 650 mg Q4H PRN ORAL fever 09/30/17 21:00 10/30/17 20:59 Al Hydroxide/Mg Hydroxide (Mylanta II) 30 ml Q6H PRN ORAL dyspepsia 09/30/17 21:00 10/30/17 20:59 Carvedilol (Coreg) 6.25 mg EVERY 12 HOURS ORAL 09/30/17 23:00 10/30/17 22:59 09/30/17 23:00 Clopidogrel Bisulfate (Plavix) 75 mg DAILY ORAL 10/01/17 09:00 10/31/17 08:59 10/01/17 08:06 Dextrose (Dextrose 50%) 25 ml STAT PRN IV Hypoglycemia Sugar btwn 60-69 09/30/17 21:00 10/30/17 20:59 Dextrose (Dextrose 50%) 50 ml STAT PRN IV Hypoglycemia Sugar <60 mg/dL 09/30/17 21:00 10/30/17 20:59 Diphenhydramine HCl (Benadryl) 25 mg Q6H PRN ORAL Itching/Pruritis 09/30/17 21:00 10/30/17 20:59 Furosemide (Lasix) 20 mg DAILY ORAL 10/01/17 09:00 10/31/17 08:59 10/01/17 08:06 Heparin Sodium (Porcine) (Heparin 5000 units/ml) 5,000 units EVERY 12 HOURS SUBQ 09/30/17 23:00 10/30/17 22:59 10/01/17 08:07 Insulin Aspart (NovoLOG) BEFORE MEALS AND HS SUBQ 10/01/17 06:30 10/31/17 06:29 Morphine Sulfate (Morphine Sulfate) 2 mg Q4H PRN IVP Severe Pain (Pain Scale 7-10) 09/30/17 21:00 10/07/17 20:59 10/01/17 08:06 Nitroglycerin (Ntg) 0.4 mg Q5M PRN SL Prn Chest Pain 09/30/17 21:00 10/30/17 20:59 Ondansetron HCl (Zofran) 4 mg Q6H PRN IVP Nausea & Vomiting 09/30/17 21:00 10/30/17 20:59 Polyethylene Glycol (Miralax) 17 gm HSPRN PRN ORAL Constipation 09/30/17 21:00 10/30/17 20:59 Pregabalin (Lyrica) 50 mg BID ORAL 10/01/17 09:00 10/31/17 08:59 10/01/17 08:06 Sodium Chloride 1,000 ml @ 50 mls/hr Q20H IV 09/30/17 23:00 10/30/17 22:59 09/30/17 23:00 Temazepam (Restoril) 15 mg HSPRN PRN ORAL Insomnia 09/30/17 21:00 10/07/17 20:59 Assessment/Plan Problem List: (1) CHF exacerbation ICD Codes: I50.9 - Heart failure, unspecified SNOMED: 22357829 (2) Intractable abdominal pain ICD Codes: R10.9 - Unspecified abdominal pain SNOMED: 10071561, 920189154 (3) EF 25% (4) AICD (automatic cardioverter/defibrillator) present ICD Codes: Z95.810 - Presence of automatic (implantable) cardiac defibrillator SNOMED: 46422089, 940910764 (5) Hemiplegia affecting right dominant side ICD Codes: G81.91 - Hemiplegia, unspecified affecting right dominant side SNOMED: 38997056 (6) Diabetes mellitus ICD Codes: E11.9 - Type 2 diabetes mellitus without complications SNOMED: 01387145 Assessment/Plan diuretics, check BNP, cxr in a few days NPO, abd US GI evaluation sliding scale diabetic diet when better titrate cardiac meds. symptomatic treatment. Ida Nolen MD Oct 01, 2017 14:38
[2017-10-01 15:28] VITALS: BP 108/58
--- NOTE | 2017-10-01 16:41 | Cardiac Electrophysiology PN ---
Subjective Subjective Cardiology consult dictated [id number] Objective Last 24 Hour Vital Signs Date Time Temp Pulse Resp B/P (MAP) Pulse Ox O2 Delivery O2 Flow Rate FiO2 10/01/17 15:28 98.2 74 20 108/58 99 Room Air 98.2 10/01/17 12:00 75 10/01/17 12:00 98.1 81 20 109/61 99 Room Air 98.1 10/01/17 09:00 70 103/58 10/01/17 08:45 97.2 10/01/17 08:00 76 10/01/17 08:00 98.1 75 20 112/66 97 Room Air 98.1 10/01/17 04:00 81 10/01/17 04:00 97.2 81 20 120/66 95 Room Air 97.2 10/01/17 00:00 75 10/01/17 00:00 97.9 81 20 103/58 94 Room Air 97.9 09/30/17 23:00 82 125/62 09/30/17 22:40 98.0 82 22 125/62 97 Room Air 98.0 09/30/17 21:50 98.0 82 22 125/62 97 Room Air 98.0 09/30/17 20:50 97.7 88 23 127/66 96 Room Air 97.7 09/30/17 19:50 97.7 92 21 128/66 97 Room Air 97.7 09/30/17 19:50 92 21 Room Air 09/30/17 19:35 97.7 92 21 132/64 95 Room Air 97.7 Intake and Output 09/30/17 10/01/17 19:00 07:00 Intake Total 550 ml Balance 550 ml Intake IV Total 550 ml # Voids 5 # Bowel Movements 1 Laboratory Tests Test 09/30/17 20:30 09/30/17 21:00 10/01/17 07:43 White Blood Count 10.2 K/UL (4.8-10.8) 8.6 K/UL (4.8-10.8) Red Blood Count 4.05 M/UL (4.20-5.40) L 3.86 M/UL (4.20-5.40) L Hemoglobin 10.8 G/DL (12.0-16.0) L 10.4 G/DL (12.0-16.0) L Hematocrit 34.0 % (37.0-47.0) L 32.2 % (37.0-47.0) L Mean Corpuscular Volume 84 FL (80-99) 84 FL (80-99) Mean Corpuscular Hemoglobin 26.5 PG (27.0-31.0) L 27.0 PG (27.0-31.0) Mean Corpuscular Hemoglobin Concent 31.7 G/DL (32.0-36.0) L 32.3 G/DL (32.0-36.0) Red Cell Distribution Width 14.4 % (11.6-14.8) 14.3 % (11.6-14.8) Platelet Count 208 K/UL (150-450) 209 K/UL (150-450) Mean Platelet Volume 9.4 FL (6.5-10.1) 9.7 FL (6.5-10.1) Neutrophils (%) (Auto) 71.6 % (45.0-75.0) 68.2 % (45.0-75.0) Lymphocytes (%) (Auto) 18.1 % (20.0-45.0) L 18.5 % (20.0-45.0) L Monocytes (%) (Auto) 6.2 % (1.0-10.0) 8.1 % (1.0-10.0) Eosinophils (%) (Auto) 3.1 % (0.0-3.0) H 4.6 % (0.0-3.0) H Basophils (%) (Auto) 1.0 % (0.0-2.0) 0.5 % (0.0-2.0) Prothrombin Time 9.8 SEC (9.30-11.50) 10.0 SEC (9.30-11.50) Prothromb Time International Ratio 0.9 (0.9-1.1) 1.0 (0.9-1.1) Activated Partial Thromboplast Time 26 SEC (23-33) 23 SEC (23-33) Sodium Level 140 MMOL/L (136-145) 143 MMOL/L (136-145) Potassium Level 3.9 MMOL/L (3.5-5.1) 4.0 MMOL/L (3.5-5.1) Chloride Level 104 MMOL/L (98-107) 107 MMOL/L (98-107) Carbon Dioxide Level 27 MMOL/L (21-32) 26 MMOL/L (21-32) Anion Gap 9 mmol/L (5-15) 10 mmol/L (5-15) Blood Urea Nitrogen 22 mg/dL (7-18) H 21 mg/dL (7-18) H Creatinine 1.1 MG/DL (0.55-1.30) 1.0 MG/DL (0.55-1.30) Estimat Glomerular Filtration Rate 49.1 mL/min (>60) 54.8 mL/min (>60) Glucose Level 210 MG/DL (74-106) H 107 MG/DL (74-106) #H Calcium Level 8.5 MG/DL (8.5-10.1) 8.5 MG/DL (8.5-10.1) Total Bilirubin 0.4 MG/DL (0.2-1.0) 0.5 MG/DL (0.2-1.0) Aspartate Amino Transf (AST/SGOT) 21 U/L (15-37) 15 U/L (15-37) Alanine Aminotransferase (ALT/SGPT) 16 U/L (12-78) 16 U/L (12-78) Alkaline Phosphatase 148 U/L (46-116) H 114 U/L (46-116) Total Creatine Kinase 48 U/L (26-308) Creatine Kinase MB 0.7 NG/ML (0.0-3.6) Creatine Kinase MB Relative Index 1.4 Troponin I 0.003 ng/mL (0.000-0.056) Pro-B-Type Natriuretic Peptide 2954 pg/mL (0-125) H Total Protein 7.9 G/DL (6.4-8.2) 7.6 G/DL (6.4-8.2) Albumin 3.1 G/DL (3.4-5.0) L 3.0 G/DL (3.4-5.0) L Globulin 4.8 g/dL 4.6 g/dL Albumin/Globulin Ratio 0.6 (1.0-2.7) L 0.7 (1.0-2.7) L Lipase 164 U/L (73-393) 140 U/L (73-393) Urine Color Pale yellow Urine Appearance Clear Urine pH 6.5 (4.5-8.0) Urine Specific [place] 1.010 (1.005-1.035) Urine Protein Negative (NEGATIVE) Urine Glucose (UA) Negative (NEGATIVE) Urine Ketones Negative (NEGATIVE) Urine Occult Blood Negative (NEGATIVE) Urine Nitrite Negative (NEGATIVE) Urine Bilirubin Negative (NEGATIVE) Urine Urobilinogen Normal MG/DL (0.0-1.0) Urine Leukocyte Esterase 2+ (NEGATIVE) H Urine RBC 0-2 /HPF (0 - 2) Urine WBC 2-4 /HPF (0 - 2) Urine Squamous Epithelial Cells Few /LPF (NONE/OCC) Urine Bacteria Few /HPF (NONE) Hemoglobin A1c 4.5 % (4.3-6.0) Amylase Level 49 U/L (25-115) Thyroid Stimulating Hormone (TSH) 4.467 uiU/mL (0.358-3.740) Remi Howard MD Oct 01, 2017 16:41
--- NOTE | 2017-10-01 19:00 | History and Physical Report ---
DATE OF ADMISSION: 09/30/2017 CHIEF COMPLAINT: The patient is a 72-year-old, female, presents with a chief complaint of abdominal pain. HISTORY OF PRESENT ILLNESS: History of present illness began three days prior to admission. The patient began to experience epigastric pain. Pain is sharp. The pain is 10/10 in intensity. The patient states the pain is on and off. The patient denies nausea, vomiting, diarrhea, or constipation. The patient presented to [place] emergency room. The patient is admitted for epigastric pain to rule out gastritis versus acute cholecystitis. REVIEW OF SYSTEMS: CONSTITUTIONAL: The patient denies weight loss or weight gain. The patient denies fevers or chills. HEENT: The patient denies ear or throat pain. The patient denies headache. CARDIOVASCULAR: The patient denies palpitations or chest pain. CHEST: The patient denies wheeze or shortness of breath. ABDOMINAL: The patient complains of epigastric pain as above. The patient denies nausea, vomiting, diarrhea, or constipation. GENITOURINARY: The patient denies dysuria or increased frequency of urination. NEUROMUSCULAR: The patient denies seizures or generalized weakness. PAST MEDICAL HISTORY: Significant for, 1. Chronic obstructive pulmonary disease. 2. Congestive heart failure. 3. Cardiomyopathy. 4. Diabetes type 2. 5. Hypertension. 6. History of cerebrovascular accident. 7. Right hemiparesis. 8. History of cervical cancer, status post total abdominal hysterectomy. 9. Iron deficiency anemia. 10. Complete left bundle-branch block, status post AICD placement. PAST SURGICAL HISTORY: Significant for, 1. Total abdominal hysterectomy. 2. Appendectomy. 3. Automatic implantable cardioverter defibrillator implanted in November of 2015. CURRENT MEDICATIONS: 1. Enteric-coated aspirin 81 mg p.o. daily. 2. Atorvastatin 40 mg p.o. at bedtime. 3. Coreg 6.25 mg p.o. twice daily. 4. Clopidogrel 75 mg p.o. daily. 5. Lasix 20 mg p.o. daily. 6. NovoLog sliding scale. 7. Lantus insulin, unknown dose at bedtime. 8. Isosorbide dinitrate 30 mg p.o. daily. 9. Claritin 10 mg p.o. daily. 10. Lyrica 50 mg p.o. twice daily. 11. Aldactone 25 mg p.o. daily. 12. Carafate 1 g p.o. four times daily. ALLERGIES: No known drug allergies. SOCIAL HISTORY: The patient is single, lives with her adult son. The patient denies tobacco or alcohol use. PHYSICAL EXAMINATION: VITAL SIGNS: Temperature 97.2, respirations 20, pulse 81, blood pressure 120/66. GENERAL: The patient is well-developed, well-nourished, female, in no apparent distress. HEENT: Eyes, pupils are equal and responsive to light and accommodation. Extraocular movements are intact. NECK: Supple without lymphadenopathy. CHEST: Lungs are clear to auscultation bilaterally without wheezes or rales. CARDIOVASCULAR: Regular rhythm and rate. S1, S2 normal without murmurs, rubs, or gallops. ABDOMEN: Soft, tender to palpation in the epigastric region, no rebound or guarding noted. EXTREMITIES: Negative for clubbing, cyanosis, or edema. RECTAL/GENITAL: Refused. NEUROLOGIC: Cranial nerves II through XII are grossly intact without focal deficits. Motor strength is 5/5 bilaterally. Deep tendon reflexes are 2+ plantar. LABORATORY STUDIES: WBC 10.3, hemoglobin 10.8, hematocrit 34.0, platelets 208,000. Sodium 140, potassium 3.9, chloride 104, CO2 27, BUN 22, creatinine 1.1, glucose 210. Alkaline phosphatase 148. BNP elevated at 2954. Troponin normal at 0.003. Amylase normal at 49, lipase normal at 164. TSH slightly elevated at 4.467. A chest x-ray revealed cardiomegaly with pulmonary vascular congestion with interstitial edema or infiltrate. ASSESSMENT: This is a 72-year-old, female, 1. Shortness of breath. 2. Epigastric abdominal pain. 3. History of chronic obstructive pulmonary disease. 4. Congestive heart failure. 5. Cardiomyopathy. 6. Diabetes type 2. 7. Hypertension. 8. Cerebrovascular disease. 9. Right hemiparesis. 10. History of cervical cancer. 11. Iron deficiency anemia. 12. Complete left bundle-branch block. 13. Automatic implantable cardioverter-defibrillator in situ. TREATMENT: 1. Shortness of breath/abdominal epigastric pain. A Gastroenterology consultation has been obtained with Dr. Ángel Leal. The patient has been started empirically on intravenous Protonix. The patient may require endoscopy. 2. Chronic obstructive pulmonary disease. A Pulmonary consultation has been obtained with Dr. Nolen. 3. Congestive heart failure/cardiomyopathy. A Cardiology consultation has been obtained with Dr. Remi Howard. 4. Diabetes type 2. A NovoLog sliding scale has been instituted. 5. Hypertension. Continue Coreg as above. 6. Cerebrovascular disease. 7. Right hemiparesis. 8. History of cervical cancer, status post total abdominal hysterectomy. 9. Iron deficiency anemia. 10. Complete left bundle-branch block. The patient is status post automatic implantable cardioverter-defibrillator placement in November of 2015. Ash Li M.D. DR: ERICA JOB#: [id number] CC:
[2017-10-01 20:00] VITALS: BP 111/63
--- NOTE | 2017-10-01 20:15 | Consultation ---
DATE OF CONSULTATION: 10/01/2017 CARDIOLOGY CONSULTATION CONSULTING PHYSICIAN: Remi Howard M.D. REQUESTING PHYSICIAN: Brendan Wright M.D. REASON FOR CONSULTATION: Management of congestive heart failure and evaluation of the patient's defibrillator. HISTORY OF PRESENT ILLNESS: The patient is a very pleasant 72-year-old lady under my Cardiology care for a long time with history of severe cardiomyopathy with ejection fraction of 25% as well as history of defibrillator implantation by me and diabetes, who presents to the emergency room complaining of shortness of breath as well as abdominal pain. Her pain is primarily for her abdomen that also goes into the chest and causes some shortness of breath. The patient was admitted and a Cardiology consultation was obtained for further evaluation and management. At the time of my evaluation, the patient denies any chest pain or shortness of breath. Primary complaints of abdominal pain. REVIEW OF SYSTEMS: Performed and was negative other than what was mentioned in the history of present illness. PAST MEDICAL HISTORY: 1. Severe cardiomyopathy, ejection fraction of only 25%. 2. Status post Biotronik biventricular defibrillator implantation by me. 3. Hypertension. 4. Renal failure. Creatinine around 2 that improved to 1.2 on the previous admission. 5. Recent pneumonia last month. SOCIAL HISTORY: She lives at home. Does smoke or drink alcohol. FAMILY HISTORY: Noncontributory. PHYSICAL EXAMINATION: VITAL SIGNS: Blood pressure is 108/58, pulse 74, respirations 18, and temperature 98.2. HEAD AND NECK: Show positive JVD. LUNGS: Decreased breath sounds. Basilar rales. CARDIOVASCULAR: Shows a regular S1 and S2 with no gallop. Defibrillator is in the left subclavian. ABDOMEN: Distended. EXTREMITIES: A 2+ pitting edema. LABORATORY AND DIAGNOSTIC DATA: Her lower extremity Doppler showed no evidence of DVT. Her EKG showed atrially sensed ventricular paced rhythm. Her labs show white count of 10.2, hemoglobin 10.4, hematocrit 32.1, and platelet count is 209. Sodium 142, potassium 4.0, BUN of 25, creatinine of 1, and glucose of 107. Her BNP is around 3000. ASSESSMENT AND PLAN: 1. Exacerbation of congestive heart failure. The patient's ejection fraction of 25%. Increase the Lasix to 40 mg daily. Continue Coreg 6.25 mg b.i.d. I will start the patient on lisinopril 10 mg daily. On the previous admission, we have to hold JAROCHO inhibitors, renal failure, but creatinine now is normal. 2. Diabetes, on insulin. 3. Hypertension. Continue current heart failure medication. 4. Abdominal pain. It could be secondary to congestive heart failure, but further evaluation is also pending. 5. Hyperlipidemia, on Lipitor. Thank you very much, Dr. Wright, for allowing me to participate in the care of this patient. Please do not hesitate to contact me for any questions regarding my evaluation. Remi Howard M.D. DR: Alison JOB#: [id number] CC:
[2017-10-02] VITALS: BP 107/56
[2017-10-02 04:00] VITALS: BP 102/58
[2017-10-02] MEDS: NovoLOG Insulin Flexpen SUBQ SCH ×4 (06:13→20:45)
[2017-10-02 08:00] VITALS: BP 119/58
[2017-10-02] MEDS: Lyrica 50mg cap ORAL SCH ×2 (08:56→17:55)
[2017-10-02] MEDS: Heparin 5000 units/ml inj SUBQ SCH ×2 (09:00→20:46)
[2017-10-02] MEDS: Lisinopril 10mg tab ORAL SCH (09:00)
[2017-10-02] MEDS: Carvedilol 6.25mg Tab ORAL SCH ×2 (09:00→20:44)
[2017-10-02 09:59] LABS: BASOPHILS % (AUTO) 0.8 % (0.0-2.0); EOSINOPHILS % (AUTO) 4.6 % (0.0-3.0); HEMATOCRIT 28.9 % (37.0-47.0); HEMOGLOBIN 9.5 G/DL (12.0-16.0); LYMPHOCYTES % (AUTO) 18.7 % (20.0-45.0); MEAN CORPUSCULAR VOLUME 85 FL (80-99); MONOCYTES % (AUTO) 7.9 % (1.0-10.0); PLATELET COUNT 171 K/UL (150-450); RED BLOOD COUNT 3.42 M/UL (4.20-5.40); RED CELL DISTRIBUTION WIDTH 15.2 % (11.6-14.8); WHITE BLOOD COUNT 8.4 K/UL (4.8-10.8)
--- NOTE | 2017-10-02 10:27 | GI Initial Consult Note ---
Rizwana Cotton N.P. 10/02/17 1027: History of Present Illness General Date patient seen: Oct 02, 2017 Time patient seen: 11:08 Reason for Hospitalization: Dyspnea/Respdistress Referring physician: ALONSO SHEPHERD Reason for Consultation: ABDOMINAL PAIN Present Illness HPI Patient presents emergency department today complaining of shortness breath and abdominal pain. Patient states that she develop acute onset epigastric pain rating into her chest associates some shortness of breath. She states that she has not had this before. She denies any leg pain leg swelling. Patient appears very uncomfortable symptoms noted to be highly severe. She thinks that she might have gastritis.No other modifying factors. No other associated signs and symptoms. No other complaints were noted. GI consulted for abdominal pain. Pt seen, awake A&Ox4 NAD no active s/x of N/V /D. C/o of epigastric pain. Has history of chronic abdominal pain, EGD performed last year with no acute findings. Colonoscopy performed in 2014 with no acute findings. She presents today with anemia with history of iron deficiency. CT AP reviewed showed >> Cardiomegaly. Bilateral pleural effusions and evidence of pulmonary. Interstitial edema. No acute abdominal or pelvic abnormality. Colonic diverticulosis. No evidence of diverticulitis. Home Meds Active Scripts Sucralfate (CARAFATE) 1 Gm/10 Ml Oral.susp, 1 GM ORAL FOUR TIMES A DAY for 14 Days, ML Prov:Alonso Shepherd MD 12/23/16 Carvedilol (Coreg) 6.25 Mg Tablet, 6.25 MG ORAL EVERY 12 HOURS for 30 Days, TAB Prov:JOVANA AGUILAR 12/21/16 Insulin Aspart (Novolog Flexpen) 100 Units/Ml Pen, 0 UNITS SUBQ BEFORE MEALS AND HS, #1 EA Prov:Suzie Jin NP 07/27/15 Reported Medications Docusate Sodium* (DOCUSATE SODIUM*) 250 Mg Capsule, 250 MG ORAL, CAP 09/30/17 Polyethylene Glycol 3350* (POLYETHYLENE GLYCOL 3350*) 17 Gm Powd.pack, 17 GM ORAL DAILY, PACKET 12/18/16 Furosemide* (LASIX*) 20 Mg Tablet, 20 MG ORAL DAILY, TAB 12/18/16 Spironolactone* (ALDACTONE*) 25 Mg Tablet, 25 MG ORAL DAILY, TAB 12/18/16 Acetaminophen* (TYLENOL EXTRA STRENGTH*) 500 Mg Tablet, 500 MG ORAL Q6H PRN for Mild Pain/Temp > 100.5, TAB 0 Refills 10/11/16 Simethicone (FL-ACID) 80 Mg Tab.chew, 80 MG PO, TAB 10/11/16 Clopidogrel* (CLOPIDOGREL*) 75 Mg Tablet, 75 MG ORAL DAILY, TAB 10/11/16 Insulin Glargine (LANTUS) 100 Unit/1 Ml Insuln.pen, 0 SUBQ BEDTIME, #1 EA 0 Refills 03/19/16 Aspirin Ec* (ASPIRIN EC*) 81 Mg Tablet.dr, 81 MG ORAL DAILY, TAB 02/28/16 Pregabalin (Lyrica) 50 Mg Capsule, 50 MG ORAL BID, CAP 02/28/16 Loratadine (LORATADINE) 10 Mg Tab.rapdis, 10 MG PO DAILY, TAB 02/28/16 Isosorbide Dinitrate* (ISORDIL*) 30 Mg Tablet, 30 MG ORAL DAILY, TAB 0 Refills 02/28/16 Atorvastatin Calcium* (ATORVASTATIN CALCIUM*) 20 Mg Tablet, 40 MG ORAL BEDTIME, TAB 11/06/15 Discontinued Reported Medications Esomeprazole Magnesium (NEXIUM) 40 Mg Capsule.dr, 40 MG ORAL DAILY, CAP 02/28/16 Med list reviewed/reconciled: Yes Allergies: Coded Allergies: No Known Allergies (Unverified , 12/18/16) Patient History History Provided By: Patient, Medical Record PMH Narrative Past Medical History: HTN, CAD Past Surgical History: pacemaker Pertinent Family History: none Social History: Denies: smoking, alcohol use, drug use Now: No Reviewed Nursing Documentation: PMH: Agreed; PSxH: Agreed Nursing Documentation-PM Past Medical History: No History, Except For Hx Cardiac Problems: Yes - CHF Hx Hypertension: Yes Hx Pacemaker: Yes Hx Asthma: No Hx COPD: Yes Hx Diabetes: Yes Hx Cancer: Yes - Uterine Tumor Hx Gastrointestinal Problems: Yes Hx Dialysis: No - CKD Hx Neurological Problems: Yes - CVA Hx Cerebrovascular Accident: Yes - in 2007 and 2008 with right-sided weakness Hx Transient Ischemic Attacks: No Hx Dementia: No Hx Alzheimer's Disease: No Hx Parkinson's Disease: No Hx Meningitis: No Hx Encephalitis: No Hx Seizures: No Hx Epilepsy: No Hx Multiple Sclerosis: No Hx Cerebral Palsy: No Hx Amyotrophic Lat Sclerosis: No Hx Guillian-Belva Syndrome: No Hx Paralysis: Yes - rt sided minor paralysis d/t CVA Hx Peripheral Neuropathy: No Hx Spinal Cord Injury: No Hx Head Trauma: No Hx Traumatic Brain Injury: No Hx Memory Loss: No Hx Concentration Difficulty: No Hx Speech Problem: No Hx Tremors: No Hx Vertigo: No Hx Dizziness: Yes Hx Syncope: No Hx Headaches: No Hx Aphasia: No Hx Dysphasia: No Hx Numbness: No Hx Weakness: No Hx Fatigue: No Hx Neurologic Surgery: No Hx Brain Shunt: No Review of Systems All Other Systems: negative except mentioned in HPI Physical Exam Vital Signs Date Time Temp Pulse Resp B/P (MAP) Pulse Ox O2 Delivery O2 Flow Rate FiO2 09/30/17 19:35 97.7 92 21 132/64 95 Room Air 97.7 Sp02 EP Interpretation: reviewed, normal Labs Laboratory Tests Test 10/02/17 07:20 White Blood Count 8.4 K/UL (4.8-10.8) Red Blood Count 3.42 M/UL (4.20-5.40) L Hemoglobin 9.5 G/DL (12.0-16.0) L Hematocrit 28.9 % (37.0-47.0) L Mean Corpuscular Volume 85 FL (80-99) Mean Corpuscular Hemoglobin 27.7 PG (27.0-31.0) Mean Corpuscular Hemoglobin Concent 32.8 G/DL (32.0-36.0) Red Cell Distribution Width 15.2 % (11.6-14.8) H Platelet Count 171 K/UL (150-450) Mean Platelet Volume 9.1 FL (6.5-10.1) Neutrophils (%) (Auto) 68.0 % (45.0-75.0) Lymphocytes (%) (Auto) 18.7 % (20.0-45.0) L Monocytes (%) (Auto) 7.9 % (1.0-10.0) Eosinophils (%) (Auto) 4.6 % (0.0-3.0) H Basophils (%) (Auto) 0.8 % (0.0-2.0) Sodium Level Pending Potassium Level Pending Chloride Level Pending Carbon Dioxide Level Pending Blood Urea Nitrogen Pending Creatinine Pending Estimat Glomerular Filtration Rate Pending Glucose Level Pending Calcium Level Pending Troponin I Pending Pro-B-Type Natriuretic Peptide Pending Amylase Level Pending Lipase Pending General Appearance: well appearing, no apparent distress, alert, obese Head: normocephalic EENT: PERRL/EOMI, normal ENT inspection Neck: supple Respiratory: normal breath sounds, no respiratory distress Cardiovascular: normal rate Gastrointestinal: normal inspection, non tender, soft, normal bowel sounds, non -distended Rectal: deferred Genitourinary: no CVA tenderness Musculoskeletal: normal inspection, back normal Neurologic: normal inspection, alert, oriented x3, responsive Psychiatric: normal inspection, judgement/insight normal, memory normal Skin: normal inspection, normal color, no rash, warm/dry, palpation normal, well hydrated Lymphatic: normal inspection, no adenopathy Current Medications Current Medications Medications (Trade) Dose Ordered Sig/[place] Route PRN Reason Start Time Stop Time Status Last Admin Dose Admin Acetaminophen (Tylenol) 650 mg Q4H PRN ORAL fever 09/30/17 21:00 10/30/17 20:59 Al Hydroxide/Mg Hydroxide (Mylanta II) 30 ml Q6H PRN ORAL dyspepsia 09/30/17 21:00 10/30/17 20:59 Carvedilol (Coreg) 6.25 mg EVERY 12 HOURS ORAL 09/30/17 23:00 10/30/17 22:59 10/01/17 20:22 Clopidogrel Bisulfate (Plavix) 75 mg DAILY ORAL 10/01/17 09:00 10/31/17 08:59 10/02/17 08:56 Dextrose (Dextrose 50%) 25 ml STAT PRN IV Hypoglycemia Sugar btwn 60-69 09/30/17 21:00 10/30/17 20:59 Dextrose (Dextrose 50%) 50 ml STAT PRN IV Hypoglycemia Sugar <60 mg/dL 09/30/17 21:00 10/30/17 20:59 Diphenhydramine HCl (Benadryl) 25 mg Q6H PRN ORAL Itching/Pruritis 09/30/17 21:00 10/30/17 20:59 Furosemide (Lasix) 40 mg DAILY IV 10/02/17 09:00 11/01/17 08:59 10/02/17 08:56 Heparin Sodium (Porcine) (Heparin 5000 units/ml) 5,000 units EVERY 12 HOURS SUBQ 09/30/17 23:00 10/30/17 22:59 10/02/17 09:00 Insulin Aspart (NovoLOG) BEFORE MEALS AND HS SUBQ 10/01/17 06:30 10/31/17 06:29 10/02/17 06:13 Lisinopril (Zestril) 10 mg DAILY ORAL 10/02/17 09:00 11/01/17 08:59 Morphine Sulfate (Morphine Sulfate) 2 mg Q4H PRN IVP Severe Pain (Pain Scale 7-10) 09/30/17 21:00 10/07/17 20:59 10/01/17 08:06 Nitroglycerin (Ntg) 0.4 mg Q5M PRN SL Prn Chest Pain 09/30/17 21:00 10/30/17 20:59 Ondansetron HCl (Zofran) 4 mg Q6H PRN IVP Nausea & Vomiting 09/30/17 21:00 10/30/17 20:59 Polyethylene Glycol (Miralax) 17 gm HSPRN PRN ORAL Constipation 09/30/17 21:00 10/30/17 20:59 Pregabalin (Lyrica) 50 mg BID ORAL 10/01/17 09:00 10/31/17 08:59 10/02/17 08:56 Sodium Chloride 1,000 ml @ 50 mls/hr Q20H IV 09/30/17 23:00 10/30/17 22:59 10/01/17 18:38 Temazepam (Restoril) 15 mg HSPRN PRN ORAL Insomnia 09/30/17 21:00 10/07/17 20:59 GI: Plan Problems: (1) Anemia (2) CHF exacerbation (3) Iron deficiency anemia (4) Dysphagia (5) Hypoalbuminemia (6) Epigastric pain (7) Generalized weakness Plan hepatomegaly with fatty infiltration. s/p normal EGD in 2017/normal colonoscopy in 2014, see report. EF - 20% chronic abdominal pain CT AP reviewed symptomatic treatment CLD, adv as tolerated pain mgmt prn transfusion bowel regime ppi simethicone prn pt on plavix OT/PT evaluation fu labs, iron panel, abdominal U/S repeat colonoscopy [address] Trinidad. Thank you for this patient referral, we will follow. BIN TRINIDAD 10/02/17 1304: History of Present Illness General Reason for Hospitalization: Dyspnea/Respdistress Present Illness Home Meds Active Scripts Sucralfate (CARAFATE) 1 Gm/10 Ml Oral.susp, 1 GM ORAL FOUR TIMES A DAY for 14 Days, ML Prov:Alonso Shepherd MD 12/23/16 Carvedilol (Coreg) 6.25 Mg Tablet, 6.25 MG ORAL EVERY 12 HOURS for 30 Days, TAB Prov:JOVANA AGUILAR 12/21/16 Insulin Aspart (Novolog Flexpen) 100 Units/Ml Pen, 0 UNITS SUBQ BEFORE MEALS AND HS, #1 EA Prov:Suzie Jin NP 07/27/15 Reported Medications Docusate Sodium* (DOCUSATE SODIUM*) 250 Mg Capsule, 250 MG ORAL, CAP 09/30/17 Polyethylene Glycol 3350* (POLYETHYLENE GLYCOL 3350*) 17 Gm Powd.pack, 17 GM ORAL DAILY, PACKET 12/18/16 Furosemide* (LASIX*) 20 Mg Tablet, 20 MG ORAL DAILY, TAB 12/18/16 Spironolactone* (ALDACTONE*) 25 Mg Tablet, 25 MG ORAL DAILY, TAB 12/18/16 Acetaminophen* (TYLENOL EXTRA STRENGTH*) 500 Mg Tablet, 500 MG ORAL Q6H PRN for Mild Pain/Temp > 100.5, TAB 0 Refills 10/11/16 Simethicone (FL-ACID) 80 Mg Tab.chew, 80 MG PO, TAB 10/11/16 Clopidogrel* (CLOPIDOGREL*) 75 Mg Tablet, 75 MG ORAL DAILY, TAB 10/11/16 Insulin Glargine (LANTUS) 100 Unit/1 Ml Insuln.pen, 0 SUBQ BEDTIME, #1 EA 0 Refills 03/19/16 Aspirin Ec* (ASPIRIN EC*) 81 Mg Tablet.dr, 81 MG ORAL DAILY, TAB 02/28/16 Pregabalin (Lyrica) 50 Mg Capsule, 50 MG ORAL BID, CAP 02/28/16 Loratadine (LORATADINE) 10 Mg Tab.rapdis, 10 MG PO DAILY, TAB 02/28/16 Isosorbide Dinitrate* (ISORDIL*) 30 Mg Tablet, 30 MG ORAL DAILY, TAB 0 Refills 02/28/16 Atorvastatin Calcium* (ATORVASTATIN CALCIUM*) 20 Mg Tablet, 40 MG ORAL BEDTIME, TAB 11/06/15 Discontinued Reported Medications Esomeprazole Magnesium (NEXIUM) 40 Mg Capsule., 40 MG ORAL DAILY, CAP 02/28/16 Allergies: Coded Allergies: No Known Allergies (Unverified , 12/18/16) GI: Plan Plan The patient was seen and examined at bedside and all new and available data was reviewed in the patients chart. I agree with the above findings, impression and plan. (Patient seen earlier today. Signature stamp does not reflect patient encounter time.). - MD Lula Cole Anh Cosme Bautista Oct 02, 2017 10:27 BIN TRINIDAD Oct 02, 2017 13:04
--- NOTE | 2017-10-02 10:38 | Internal Med Progress Note ---
Subjective Date of Service: Oct 02, 2017 Physician Name Ash Aguilar Attending Physician Brendan Wright MD Current Medications Medications (Trade) Dose Ordered Sig/[place] Route PRN Reason Start Time Stop Time Status Last Admin Dose Admin Acetaminophen (Tylenol) 650 mg Q4H PRN ORAL fever 09/30/17 21:00 10/30/17 20:59 Al Hydroxide/Mg Hydroxide (Mylanta II) 30 ml Q6H PRN ORAL dyspepsia 09/30/17 21:00 10/30/17 20:59 Carvedilol (Coreg) 6.25 mg EVERY 12 HOURS ORAL 09/30/17 23:00 10/30/17 22:59 10/01/17 20:22 Clopidogrel Bisulfate (Plavix) 75 mg DAILY ORAL 10/01/17 09:00 10/31/17 08:59 10/02/17 08:56 Dextrose (Dextrose 50%) 25 ml STAT PRN IV Hypoglycemia Sugar btwn 60-69 09/30/17 21:00 10/30/17 20:59 Dextrose (Dextrose 50%) 50 ml STAT PRN IV Hypoglycemia Sugar <60 mg/dL 09/30/17 21:00 10/30/17 20:59 Diphenhydramine HCl (Benadryl) 25 mg Q6H PRN ORAL Itching/Pruritis 09/30/17 21:00 10/30/17 20:59 Furosemide (Lasix) 40 mg DAILY IV 10/02/17 09:00 11/01/17 08:59 10/02/17 08:56 Heparin Sodium (Porcine) (Heparin 5000 units/ml) 5,000 units EVERY 12 HOURS SUBQ 09/30/17 23:00 10/30/17 22:59 10/02/17 09:00 Insulin Aspart (NovoLOG) BEFORE MEALS AND HS SUBQ 10/01/17 06:30 10/31/17 06:29 10/02/17 06:13 Lisinopril (Zestril) 10 mg DAILY ORAL 10/02/17 09:00 11/01/17 08:59 Morphine Sulfate (Morphine Sulfate) 2 mg Q4H PRN IVP Severe Pain (Pain Scale 7-10) 09/30/17 21:00 10/07/17 20:59 10/01/17 08:06 Nitroglycerin (Ntg) 0.4 mg Q5M PRN SL Prn Chest Pain 09/30/17 21:00 10/30/17 20:59 Ondansetron HCl (Zofran) 4 mg Q6H PRN IVP Nausea & Vomiting 09/30/17 21:00 10/30/17 20:59 Polyethylene Glycol (Miralax) 17 gm HSPRN PRN ORAL Constipation 09/30/17 21:00 10/30/17 20:59 Pregabalin (Lyrica) 50 mg BID ORAL 10/01/17 09:00 10/31/17 08:59 10/02/17 08:56 Sodium Chloride 1,000 ml @ 50 mls/hr Q20H IV 09/30/17 23:00 10/30/17 22:59 10/01/17 18:38 Temazepam (Restoril) 15 mg HSPRN PRN ORAL Insomnia 09/30/17 21:00 10/07/17 20:59 Allergies: Coded Allergies: No Known Allergies (Unverified , 12/18/16) ROS Limited/Unobtainable: No Constitutional: Reports: no symptoms HEENT: Reports: no symptoms Cardiovascular: Reports: no symptoms Respiratory: Reports: no symptoms Gastrointestinal/Abdominal: Reports: abdominal pain Genitourinary: Reports: no symptoms 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: Reports: no symptoms Subjective 72 YO F admitted with shortness of breath and epigastric pain. Now CHF exacerbation. Cover for Int Med-Dr Wright. Await GI consult and CT abdomen Objective Last Vital Signs Date Time Temp Pulse Resp B/P (MAP) Pulse Ox O2 Delivery O2 Flow Rate FiO2 10/02/17 09:00 119/58 10/02/17 09:00 76 10/02/17 08:00 96.3 20 97 Room Air 96.3 General Appearance: WD/WN, no apparent distress, alert EENT: PERRL/EOMI, normal ENT inspection Neck: non-tender, normal alignment, supple, normal inspection Cardiovascular: normal peripheral pulses, normal rate, regular rhythm, no gallop/murmur, no JVD Respiratory/Chest: no accessory muscle use, respiratory distress, decreased breath sounds, crackles/rales, rhonchi - bilaterally, expiratory wheezing Abdomen: normal bowel sounds, non tender, soft, no organomegaly, no mass Extremities: normal range of motion, non-tender Neurologic: 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, no motor/sensory deficits Skin: normal pigmentation, warm/dry Laboratory Tests Test 10/02/17 07:20 White Blood Count 8.4 K/UL (4.8-10.8) Red Blood Count 3.42 M/UL (4.20-5.40) L Hemoglobin 9.5 G/DL (12.0-16.0) L Hematocrit 28.9 % (37.0-47.0) L Mean Corpuscular Volume 85 FL (80-99) Mean Corpuscular Hemoglobin 27.7 PG (27.0-31.0) Mean Corpuscular Hemoglobin Concent 32.8 G/DL (32.0-36.0) Red Cell Distribution Width 15.2 % (11.6-14.8) H Platelet Count 171 K/UL (150-450) Mean Platelet Volume 9.1 FL (6.5-10.1) Neutrophils (%) (Auto) 68.0 % (45.0-75.0) Lymphocytes (%) (Auto) 18.7 % (20.0-45.0) L Monocytes (%) (Auto) 7.9 % (1.0-10.0) Eosinophils (%) (Auto) 4.6 % (0.0-3.0) H Basophils (%) (Auto) 0.8 % (0.0-2.0) Sodium Level Pending Potassium Level Pending Chloride Level Pending Carbon Dioxide Level Pending Blood Urea Nitrogen Pending Creatinine Pending Estimat Glomerular Filtration Rate Pending Glucose Level Pending Calcium Level Pending Troponin I Pending Pro-B-Type Natriuretic Peptide Pending Amylase Level Pending Lipase Pending Intake and Output 10/01/17 10/02/17 19:00 07:00 Intake Total 150 ml Balance 150 ml Intake IV Total 150 ml # Voids 3 2 # Bowel Movements 1 Assessment/Plan Problem List: (1) CHF exacerbation Assessment & Plan: Increase lasix per cardiology (2) Hemiplegia affecting right dominant side (3) Diabetes mellitus Assessment & Plan: Continue novolog sliding scale (4) Abdominal pain (5) LBBB (left bundle branch block) Assessment & Plan: S/P AICD. See cardiology note. (6) COPD (chronic obstructive pulmonary disease) Assessment & Plan: See pulmonary note. (7) Shortness of breath (8) Hypertension Assessment & Plan: Continue lisinopril and coreg (9) Cerebral vascular disease (10) Anemia (11) AICD (automatic cardioverter/defibrillator) present ASH AGUILAR Oct 02, 2017 10:38
--- NOTE | 2017-10-02 10:42 | Diagnostic Imaging Report ---
Clinical Indication: Abdominal pain Technique: Patient given oral contrast. IV administration nonionic contrast. Venous phase spiral acquisition obtained through the abdomen and pelvis. Multiplanar reconstructions were generated. Total dose length product 932.57 mGycm. CTDIvol(s) 19.07 mGy. Dose reduction achieved using automated exposure control Comparison: 12/22/2016 noncontrast study, 03/19/2016 contrast exam Findings: There is colonic diverticulosis. No evidence of diverticulitis. The appendix is not definitely visualized, but no findings to suggest acute appendicitis are evident. No small bowel distention or small bowel wall thickening. No free or loculated intraperitoneal air or fluid is evident. Gas bubbles in the anterior abdominal wall as well as nodules likely reflect recent subcutaneous injections. The liver, gallbladder, bile ducts, pancreas, spleen, adrenals are unremarkable. Lobulated appearance to both kidneys is again demonstrated. Previously demonstrated right collecting system calculus versus arterial calcification is possibly evident but is obscured by surrounding contrast. No ureteral calculi, hydronephrosis, or hydroureter. The uterus is not visualized, presumed surgically absent. Scarring is seen in the lower anterior pelvic midline. There is an accessory splenule. The heart is enlarged. There are bilateral pleural effusions. There is resultant compressive parenchymal atelectasis. There is pulmonary interstitial congestion. Pacemaker wires are again demonstrated. L1 compression fracture deformity is again demonstrated, unchanged. Transitional lumbosacral anatomy noted. Impression: Cardiomegaly. Bilateral pleural effusions and evidence of pulmonary interstitial edema No acute abdominal or pelvic abnormality Colonic diverticulosis. No evidence of diverticulitis Other findings as noted, including stable L1 compression fracture deformity, pacemaker, bilateral renal cortical scarring, evidence of prior hysterectomy, evidence of recent subcutaneous injections The CT scanner at [facility] is accredited by the [employer] and the scans are performed using protocols designed to limit radiation exposure to as low as reasonably achievable to attain images of sufficient resolution adequate for diagnostic evaluation.
[2017-10-02 11:02] LABS: AMYLASE 44 U/L (25-115); ANION GAP 7 mmol/L (5-15); BLOOD UREA NITROGEN 19 mg/dL (7-18); CALCIUM 8.3 MG/DL (8.5-10.1); CARBON DIOXIDE 28 MMOL/L (21-32); CHLORIDE 108 MMOL/L (98-107); CREATININE 1.1 MG/DL (0.55-1.30); POTASSIUM 4.4 MMOL/L (3.5-5.1); SODIUM 143 MMOL/L (136-145)
[2017-10-02 12:00] VITALS: BP 122/62
--- NOTE | 2017-10-02 12:07 | Pulmonology Progress Note ---
Assessment/Plan Problems: (1) CHF exacerbation (2) Intractable abdominal pain (3) EF 25% (4) AICD (automatic cardioverter/defibrillator) present (5) Hemiplegia affecting right dominant side (6) Diabetes mellitus Assessment/Plan On lasix 40 QD check intake and output optimize cardiac meds sliding scale, pt/ot dvt prophylaxis Subjective ROS Limited/Unobtainable: No Constitutional: Reports: no symptoms HEENT: Repors: no symptoms Respiratory: Reports: no symptoms Allergies: Coded Allergies: No Known Allergies (Unverified , 12/18/16) Objective Last 24 Hour Vital Signs Date Time Temp Pulse Resp B/P (MAP) Pulse Ox O2 Delivery O2 Flow Rate FiO2 10/02/17 09:00 119/58 10/02/17 09:00 76 119/58 10/02/17 08:00 96.3 72 20 119/58 97 Room Air 96.3 10/02/17 08:00 76 10/02/17 04:00 70 10/02/17 04:00 96.3 72 20 102/58 97 Room Air 96.3 10/02/17 00:00 71 10/02/17 00:00 96.8 77 22 107/56 96 Room Air 96.8 10/01/17 20:22 77 111/63 10/01/17 20:00 76 10/01/17 20:00 99.5 77 18 111/63 95 Room Air 99.5 10/01/17 16:00 77 10/01/17 15:28 98.2 74 20 108/58 99 Room Air 98.2 Intake and Output 10/01/17 10/02/17 19:00 07:00 Intake Total 150 ml Balance 150 ml Intake IV Total 150 ml # Voids 3 2 # Bowel Movements 1 General Appearance: WD/WN HEENT: normocephalic, atraumatic Respiratory/Chest: chest wall non-tender, lungs clear Breasts: no masses Cardiovascular: normal peripheral pulses Abdomen: normal bowel sounds, soft, non tender Genitourinary: normal external genitalia Extremities: no cyanosis Skin: no lesions 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: scenario writer II-XII 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 Lymphatic: no neck adenopathy Laboratory Tests 10/02/17 07:20: White Blood Count 8.4, Red Blood Count 3.42L, Hemoglobin 9.5L, Hematocrit 28.9L , Mean Corpuscular Volume 85, Mean Corpuscular Hemoglobin 27.7, Mean Corpuscular Hemoglobin Concent 32.8, Red Cell Distribution Width 15.2H, Platelet Count 171, Mean Platelet Volume 9.1, Neutrophils (%) (Auto) 68.0, Lymphocytes (%) (Auto) 18.7L, Monocytes (%) (Auto) 7.9, Eosinophils (%) (Auto) 4.6H, Basophils (%) (Auto) 0.8, Sodium Level 143, Potassium Level 4.4, Chloride Level 108H, Carbon Dioxide Level 28, Anion Gap 7, Blood Urea Nitrogen 19H, Creatinine 1.1, Estimat Glomerular Filtration Rate 49.1, Glucose Level 105, Calcium Level 8.3L, Troponin I 0.001, Pro-B-Type Natriuretic Peptide 1291H, Amylase Level 44, Lipase 88 Current Medications Medications (Trade) Dose Ordered Sig/Austin Route PRN Reason Start Time Stop Time Status Last Admin Dose Admin Acetaminophen (Tylenol) 650 mg Q4H PRN ORAL fever 09/30/17 21:00 10/30/17 20:59 Al Hydroxide/Mg Hydroxide (Mylanta II) 30 ml Q6H PRN ORAL dyspepsia 09/30/17 21:00 10/30/17 20:59 Carvedilol (Coreg) 6.25 mg EVERY 12 HOURS ORAL 09/30/17 23:00 10/30/17 22:59 10/01/17 20:22 Clopidogrel Bisulfate (Plavix) 75 mg DAILY ORAL 10/01/17 09:00 10/31/17 08:59 10/02/17 08:56 Dextrose (Dextrose 50%) 25 ml STAT PRN IV Hypoglycemia Sugar btwn 60-69 09/30/17 21:00 10/30/17 20:59 Dextrose (Dextrose 50%) 50 ml STAT PRN IV Hypoglycemia Sugar <60 mg/dL 09/30/17 21:00 10/30/17 20:59 Diphenhydramine HCl (Benadryl) 25 mg Q6H PRN ORAL Itching/Pruritis 09/30/17 21:00 10/30/17 20:59 Furosemide (Lasix) 40 mg DAILY IV 10/02/17 09:00 11/01/17 08:59 10/02/17 08:56 Heparin Sodium (Porcine) (Heparin 5000 units/ml) 5,000 units EVERY 12 HOURS SUBQ 09/30/17 23:00 10/30/17 22:59 10/02/17 09:00 Insulin Aspart (NovoLOG) BEFORE MEALS AND HS SUBQ 10/01/17 06:30 10/31/17 06:29 10/02/17 06:13 Lisinopril (Zestril) 10 mg DAILY ORAL 10/02/17 09:00 11/01/17 08:59 Morphine Sulfate (Morphine Sulfate) 2 mg Q4H PRN IVP Severe Pain (Pain Scale 7-10) 09/30/17 21:00 10/07/17 20:59 10/01/17 08:06 Nitroglycerin (Ntg) 0.4 mg Q5M PRN SL Prn Chest Pain 09/30/17 21:00 10/30/17 20:59 Ondansetron HCl (Zofran) 4 mg Q6H PRN IVP Nausea & Vomiting 09/30/17 21:00 10/30/17 20:59 Polyethylene Glycol (Miralax) 17 gm HSPRN PRN ORAL Constipation 09/30/17 21:00 10/30/17 20:59 Pregabalin (Lyrica) 50 mg BID ORAL 10/01/17 09:00 10/31/17 08:59 10/02/17 08:56 Sodium Chloride 1,000 ml @ 50 mls/hr Q20H IV 09/30/17 23:00 10/30/17 22:59 10/01/17 18:38 Temazepam (Restoril) 15 mg HSPRN PRN ORAL Insomnia 09/30/17 21:00 10/07/17 20:59 Ida Nolen MD Oct 02, 2017 12:07
--- NOTE | 2017-10-02 14:43 | Cardiac Electrophysiology PN ---
Assessment/Plan Assessment/Plan 1. Exacerbation of congestive heart failure. The patient's ejection fraction of 25%. On Lasix 40 mg daily, Coreg 6.25 mg b.i.d. and lisinopril 10 mg daily. 2. Diabetes, on insulin. 3. Hypertension. Continue current heart failure medication. 4. Abdominal pain. It could be secondary to congestive heart failure, Had CT abdomen. follow up with Gi. 5. Hyperlipidemia, on Lipitor. 6. CKD Cr normal now. MADISON RN Subjective Subjective NPO.Had CT scan of abdomen. No chest pain or SOB. Objective Last 24 Hour Vital Signs Date Time Temp Pulse Resp B/P (MAP) Pulse Ox O2 Delivery O2 Flow Rate FiO2 10/02/17 12:00 74 10/02/17 12:00 98.1 72 20 122/62 97 Room Air 98.1 10/02/17 09:00 119/58 10/02/17 09:00 76 119/58 10/02/17 08:00 96.3 72 20 119/58 97 Room Air 96.3 10/02/17 08:00 76 10/02/17 04:00 70 10/02/17 04:00 96.3 72 20 102/58 97 Room Air 96.3 10/02/17 00:00 71 10/02/17 00:00 96.8 77 22 107/56 96 Room Air 96.8 10/01/17 20:22 77 111/63 10/01/17 20:00 76 10/01/17 20:00 99.5 77 18 111/63 95 Room Air 99.5 10/01/17 16:00 77 10/01/17 15:28 98.2 74 20 108/58 99 Room Air 98.2 Intake and Output 10/01/17 10/02/17 19:00 07:00 Intake Total 150 ml Balance 150 ml Intake IV Total 150 ml # Voids 3 2 # Bowel Movements 1 Laboratory Tests Test 10/02/17 07:20 10/02/17 11:00 White Blood Count 8.4 K/UL (4.8-10.8) Red Blood Count 3.42 M/UL (4.20-5.40) L Hemoglobin 9.5 G/DL (12.0-16.0) L Hematocrit 28.9 % (37.0-47.0) L Mean Corpuscular Volume 85 FL (80-99) Mean Corpuscular Hemoglobin 27.7 PG (27.0-31.0) Mean Corpuscular Hemoglobin Concent 32.8 G/DL (32.0-36.0) Red Cell Distribution Width 15.2 % (11.6-14.8) H Platelet Count 171 K/UL (150-450) Mean Platelet Volume 9.1 FL (6.5-10.1) Neutrophils (%) (Auto) 68.0 % (45.0-75.0) Lymphocytes (%) (Auto) 18.7 % (20.0-45.0) L Monocytes (%) (Auto) 7.9 % (1.0-10.0) Eosinophils (%) (Auto) 4.6 % (0.0-3.0) H Basophils (%) (Auto) 0.8 % (0.0-2.0) Sodium Level 143 MMOL/L (136-145) Potassium Level 4.4 MMOL/L (3.5-5.1) Chloride Level 108 MMOL/L (98-107) H Carbon Dioxide Level 28 MMOL/L (21-32) Anion Gap 7 mmol/L (5-15) Blood Urea Nitrogen 19 mg/dL (7-18) H Creatinine 1.1 MG/DL (0.55-1.30) Estimat Glomerular Filtration Rate 49.1 mL/min (>60) Glucose Level 105 MG/DL (74-106) Calcium Level 8.3 MG/DL (8.5-10.1) L Troponin I 0.001 ng/mL (0.000-0.056) Pro-B-Type Natriuretic Peptide 1291 pg/mL (0-125) H Amylase Level 44 U/L (25-115) Lipase 88 U/L (73-393) Stool Occult Blood Pending Objective HEAD AND NECK: Show positive JVD. LUNGS: Decreased breath sounds. Basilar rales. CARDIOVASCULAR: Shows a regular S1 and S2 with no gallop. Defibrillator is in the left subclavian. ABDOMEN: Distended. EXTREMITIES: A 2+ pitting edema. Remi Howard MD Oct 02, 2017 14:43
--- NOTE | 2017-10-02 14:50 | Consultation ---
History of Present Illness General Date patient seen: Oct 01, 2017 Chief Complaint: Dyspnea/Respdistress Referring physician: ALONSO SHEPHERD Reason for Consultation: ABDOMINAL PAIN Present Illness HPI 72-year-old, female, presents with a chief complaint of abdominal pain. the pt is Italian speaking. The pt pw anxiety and low energy. the pt was alert oriented and was able to answer the questions appropriately. Allergies: Coded Allergies: No Known Allergies (Unverified , 12/18/16) Medication History Scheduled Aspirin Ec* (Aspirin Ec*), 81 MG ORAL DAILY, (Reported) Atorvastatin Calcium* (Atorvastatin Calcium*), 40 MG ORAL BEDTIME, (Reported) Carvedilol (Coreg), 6.25 MG ORAL EVERY 12 HOURS Clopidogrel* (Clopidogrel*), 75 MG ORAL DAILY, (Reported) Furosemide* (Lasix*), 20 MG ORAL DAILY, (Reported) Insulin Aspart (Novolog Flexpen), 0 UNITS SUBQ BEFORE MEALS AND HS Insulin Glargine (Lantus), 0 SUBQ BEDTIME, (Reported) Isosorbide Dinitrate* (Isordil*), 30 MG ORAL DAILY, (Reported) Loratadine (Loratadine), 10 MG PO DAILY, (Reported) Polyethylene Glycol 3350* (Polyethylene Glycol 3350*), 17 GM ORAL DAILY, ( Reported) Pregabalin (Lyrica), 50 MG ORAL BID, (Reported) Spironolactone* (Aldactone*), 25 MG ORAL DAILY, (Reported) Sucralfate (Carafate), 1 GM ORAL FOUR TIMES A DAY Scheduled PRN Acetaminophen* (Tylenol Extra Strength*), 500 MG ORAL Q6H PRN for Mild Pain/ Temp > 100.5, (Reported) Miscellaneous Medications Docusate Sodium* (Docusate Sodium*), 250 MG ORAL, (Reported) Simethicone (Mi-Acid), 80 MG PO, (Reported) Discontinued Medications Esomeprazole Magnesium (Nexium), 40 MG ORAL DAILY, (Reported) Discontinued Reason: MD discontinued med Patient History History Provided By: Patient, Medical Record, PMD Healthcare decision maker Resuscitation status Full Code Advanced Directive on File Past Medical/Surgical History Past Medical/Surgical History: (1) Acute pancreatitis (2) Dehydration (3) Hyperkalemia (4) Hyperkalemia (5) Diabetic neuropathy (6) Diaphoresis (7) Hypoxemia (8) CAD (coronary artery disease) (9) Dyspnea (10) Respiratory distress (11) Hypercholesteremia (12) Hyperglycemia (13) Hypernatremia (14) Leukocytosis (15) Pancreatitis (16) Renal failure (17) Peripheral vascular disease (18) Epigastric abdominal pain (19) ATN (acute tubular necrosis) (20) UTI (urinary tract infection) (21) Bronchitis (22) Diabetic nephropathy (23) Hypotension (24) Acid reflux (25) Left upper quadrant pain (26) Hepatic steatosis (27) Multiple thyroid nodules (28) Steatosis of liver (29) High triglycerides (30) Sacral decubitus ulcer (31) Uncontrolled diabetes mellitus (32) Sigmoid thickening (33) Alkaline phosphatase elevation (34) E. coli UTI (35) Acute kidney injury (nontraumatic) (36) Right hemiparesis (37) Right adrenal mass (38) Left bundle branch block (LBBB) (39) Acute encephalopathy (40) Elevated d-dimer (41) Obesity (42) HTN (hypertension) (43) Pneumonia (44) Acute kidney injury (45) Acute renal failure (ARF) (46) Abdominal pain (47) Gastritis (48) ACS (acute coronary syndrome) (49) Chest pain (50) COPD (chronic obstructive pulmonary disease) (51) Cardiomyopathy (52) Hemiparesis, right (53) EF 25% (54) Diabetes mellitus (55) Acute CHF (56) CHF exacerbation (57) Hemiplegia affecting right dominant side (58) Intractable abdominal pain (59) Shortness of breath (60) Anemia (61) LBBB (left bundle branch block) (62) Hypertension (63) Cerebral vascular disease (64) Generalized weakness (65) Dysphagia (66) Iron deficiency anemia (67) Epigastric pain (68) Hypoalbuminemia (69) Hypocalcemia Review of Systems Psychiatric: Reports: prior hx, anxiety Physical Exam General Appearance: no apparent distress, alert Neurologic: oriented x 3, responsive, normal mood/affect Last 24 Hour Vital Signs Date Time Temp Pulse Resp B/P (MAP) Pulse Ox O2 Delivery O2 Flow Rate FiO2 10/02/17 12:00 74 10/02/17 12:00 98.1 72 20 122/62 97 Room Air 98.1 10/02/17 09:00 119/58 10/02/17 09:00 76 119/58 10/02/17 08:00 96.3 72 20 119/58 97 Room Air 96.3 10/02/17 08:00 76 10/02/17 04:00 70 10/02/17 04:00 96.3 72 20 102/58 97 Room Air 96.3 10/02/17 00:00 71 10/02/17 00:00 96.8 77 22 107/56 96 Room Air 96.8 10/01/17 20:22 77 111/63 10/01/17 20:00 76 10/01/17 20:00 99.5 77 18 111/63 95 Room Air 99.5 10/01/17 16:00 77 10/01/17 15:28 98.2 74 20 108/58 99 Room Air 98.2 Intake and Output 10/01/17 10/02/17 19:00 07:00 Intake Total 150 ml Balance 150 ml Intake IV Total 150 ml # Voids 3 2 # Bowel Movements 1 Laboratory Tests Test 10/02/17 07:20 10/02/17 11:00 White Blood Count 8.4 K/UL (4.8-10.8) Red Blood Count 3.42 M/UL (4.20-5.40) L Hemoglobin 9.5 G/DL (12.0-16.0) L Hematocrit 28.9 % (37.0-47.0) L Mean Corpuscular Volume 85 FL (80-99) Mean Corpuscular Hemoglobin 27.7 PG (27.0-31.0) Mean Corpuscular Hemoglobin Concent 32.8 G/DL (32.0-36.0) Red Cell Distribution Width 15.2 % (11.6-14.8) H Platelet Count 171 K/UL (150-450) Mean Platelet Volume 9.1 FL (6.5-10.1) Neutrophils (%) (Auto) 68.0 % (45.0-75.0) Lymphocytes (%) (Auto) 18.7 % (20.0-45.0) L Monocytes (%) (Auto) 7.9 % (1.0-10.0) Eosinophils (%) (Auto) 4.6 % (0.0-3.0) H Basophils (%) (Auto) 0.8 % (0.0-2.0) Sodium Level 143 MMOL/L (136-145) Potassium Level 4.4 MMOL/L (3.5-5.1) Chloride Level 108 MMOL/L (98-107) H Carbon Dioxide Level 28 MMOL/L (21-32) Anion Gap 7 mmol/L (5-15) Blood Urea Nitrogen 19 mg/dL (7-18) H Creatinine 1.1 MG/DL (0.55-1.30) Estimat Glomerular Filtration Rate 49.1 mL/min (>60) Glucose Level 105 MG/DL (74-106) Calcium Level 8.3 MG/DL (8.5-10.1) L Troponin I 0.001 ng/mL (0.000-0.056) Pro-B-Type Natriuretic Peptide 1291 pg/mL (0-125) H Amylase Level 44 U/L (25-115) Lipase 88 U/L (73-393) Stool Occult Blood Pending Height (Feet): 5 Height (Inches): 0.00 Weight (Pounds): 172 Medications Current Medications Medications (Trade) Dose Ordered Sig/[place] Route PRN Reason Start Time Stop Time Status Last Admin Dose Admin Acetaminophen (Tylenol) 650 mg Q4H PRN ORAL fever 09/30/17 21:00 10/30/17 20:59 Al Hydroxide/Mg Hydroxide (Mylanta II) 30 ml Q6H PRN ORAL dyspepsia 09/30/17 21:00 10/30/17 20:59 Carvedilol (Coreg) 6.25 mg EVERY 12 HOURS ORAL 09/30/17 23:00 10/30/17 22:59 10/01/17 20:22 Clopidogrel Bisulfate (Plavix) 75 mg DAILY ORAL 10/01/17 09:00 10/31/17 08:59 10/02/17 08:56 Dextrose (Dextrose 50%) 25 ml STAT PRN IV Hypoglycemia Sugar btwn 60-69 09/30/17 21:00 10/30/17 20:59 Dextrose (Dextrose 50%) 50 ml STAT PRN IV Hypoglycemia Sugar <60 mg/dL 09/30/17 21:00 10/30/17 20:59 Diphenhydramine HCl (Benadryl) 25 mg Q6H PRN ORAL Itching/Pruritis 09/30/17 21:00 10/30/17 20:59 Furosemide (Lasix) 40 mg DAILY IV 10/02/17 09:00 11/01/17 08:59 10/02/17 08:56 Heparin Sodium (Porcine) (Heparin 5000 units/ml) 5,000 units EVERY 12 HOURS SUBQ 09/30/17 23:00 10/30/17 22:59 10/02/17 09:00 Insulin Aspart (NovoLOG) BEFORE MEALS AND HS SUBQ 10/01/17 06:30 10/31/17 06:29 10/02/17 12:55 Lisinopril (Zestril) 10 mg DAILY ORAL 10/02/17 09:00 11/01/17 08:59 Morphine Sulfate (Morphine Sulfate) 2 mg Q4H PRN IVP Severe Pain (Pain Scale 7-10) 09/30/17 21:00 10/07/17 20:59 10/01/17 08:06 Nitroglycerin (Ntg) 0.4 mg Q5M PRN SL Prn Chest Pain 09/30/17 21:00 10/30/17 20:59 Ondansetron HCl (Zofran) 4 mg Q6H PRN IVP Nausea & Vomiting 09/30/17 21:00 10/30/17 20:59 Polyethylene Glycol (Miralax) 17 gm HSPRN PRN ORAL Constipation 09/30/17 21:00 10/30/17 20:59 Pregabalin (Lyrica) 50 mg BID ORAL 10/01/17 09:00 10/31/17 08:59 10/02/17 08:56 Sodium Chloride 1,000 ml @ 50 mls/hr Q20H IV 09/30/17 23:00 10/30/17 22:59 10/01/17 18:38 Temazepam (Restoril) 15 mg HSPRN PRN ORAL Insomnia 09/30/17 21:00 10/07/17 20:59 Assessment/Plan Status: stable Assessment/Plan Anxiety d/o Ativan 1mg q 6hr prn/anxiety Teresa Douglas M.D. Oct 02, 2017 14:49
[2017-10-02] MEDS ORDERED: LORazepam 1mg tab ORAL PRN (15:00)
[2017-10-02 16:00] VITALS: BP 125/66
[2017-10-02 20:00] VITALS: BP 125/65
[2017-10-02] MEDS: Morphine Sulfate 4mg/ml Inj IVP PRN (21:07)
--- NOTE | 2017-10-02 21:46 | General Progress Note ---
Assessment/Plan Assessment/Plan Anxiety d/o Ativan 1mg q 6hr prn/anxiety Subjective Date patient seen: Oct 02, 2017 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: Reports: anxiety, emotional problems Allergies: Coded Allergies: No Known Allergies (Unverified , 12/18/16) Objective Last 24 Hour Vital Signs Date Time Temp Pulse Resp B/P (MAP) Pulse Ox O2 Delivery O2 Flow Rate FiO2 10/02/17 20:44 83 125/65 10/02/17 20:00 97.2 83 20 125/65 97 Room Air 97.2 10/02/17 16:00 75 10/02/17 16:00 98.1 72 20 125/66 97 Room Air 98.1 10/02/17 12:00 74 10/02/17 12:00 98.1 72 20 122/62 97 Room Air 98.1 10/02/17 09:00 119/58 10/02/17 09:00 76 119/58 10/02/17 08:00 96.3 72 20 119/58 97 Room Air 96.3 10/02/17 08:00 76 10/02/17 04:00 70 10/02/17 04:00 96.3 72 20 102/58 97 Room Air 96.3 10/02/17 00:00 71 10/02/17 00:00 96.8 77 22 107/56 96 Room Air 96.8 Intake and Output 10/01/17 10/02/17 19:00 07:00 Intake Total 150 ml Balance 150 ml Intake IV Total 150 ml # Voids 3 2 # Bowel Movements 1 Laboratory Tests 10/02/17 07:20: White Blood Count 8.4, Red Blood Count 3.42L, Hemoglobin 9.5L, Hematocrit 28.9L , Mean Corpuscular Volume 85, Mean Corpuscular Hemoglobin 27.7, Mean Corpuscular Hemoglobin Concent 32.8, Red Cell Distribution Width 15.2H, Platelet Count 171, Mean Platelet Volume 9.1, Neutrophils (%) (Auto) 68.0, Lymphocytes (%) (Auto) 18.7L, Monocytes (%) (Auto) 7.9, Eosinophils (%) (Auto) 4.6H, Basophils (%) (Auto) 0.8, Sodium Level 143, Potassium Level 4.4, Chloride Level 108H, Carbon Dioxide Level 28, Anion Gap 7, Blood Urea Nitrogen 19H, Creatinine 1.1, Estimat Glomerular Filtration Rate 49.1, Glucose Level 105, Calcium Level 8.3L, Troponin I 0.001, Pro-B-Type Natriuretic Peptide 1291H, Amylase Level 44, Lipase 88 10/02/17 11:00: Stool Occult Blood Negative Height (Feet): 5 Height (Inches): 0.00 Weight (Pounds): 172 General Appearance: no apparent distress, alert Neurologic: alert, oriented x 3, responsive Teresa Douglas M.D. Oct 02, 2017 21:46
[2017-10-03] VITALS: BP 117/61
[2017-10-03 04:00] VITALS: BP 123/69
[2017-10-03] MEDS: NovoLOG Insulin Flexpen SUBQ SCH ×4 (06:30→20:58)
[2017-10-03 08:00] VITALS: BP 121/61
[2017-10-03] MEDS: Heparin 5000 units/ml inj SUBQ SCH ×2 (08:26→21:02)
[2017-10-03] MEDS: Lyrica 50mg cap ORAL SCH ×2 (08:27→17:20)
[2017-10-03] MEDS: Lisinopril 10mg tab ORAL SCH (08:27)
[2017-10-03] MEDS: Carvedilol 6.25mg Tab ORAL SCH ×2 (08:28→21:00)
--- NOTE | 2017-10-03 08:39 | Physician Query ---
--------- THIS DOCUMENT IS A PERMANENT PART OF THE MEDICAL RECORD --------- PLEASE COMPLETE THE DOCUMENT BEFORE SIGNING Dear DELORES Aponte Date: 10/03/17 Tower Excavator Operator/CDS Name: Kaye Cannon Tower Excavator Operator / CDS Phone #[phone] Exercise your independent professional judgment when responding to query. Question asked do not imply a particular answer is desired/expected Clinical Documentation States: "Heart Failure / CHF" documented in Cardiology Progress Note (10/02/17) "Exacerbation of congestive heart failure. The patient's ejection fraction of 25%. On Lasix 40 mg daily, Coreg 6.25 mg b.i.d. and lisinopril 10 mg daily." Clinical Findings Show: BNP 2954 Diuretic Lasix 40 mg IV Please Clarify: Acuity [] Acute [] Chronic [] Acute on Chronic Type [] Systolic [] Diastolic [] Systolic & Diastolic (Combined) [] Left Heart failure [] Other: Etiology [] CHF due to Hypertension [] Cardiomyopathy [] Valvular Heart Disease [] Coronary Artery Disease [] Unable to determine [] Other: Condition Present on Admission: [] Yes [] No []Clinically Undeterminable Please also document in your Progress Notes and/or Discharge Summary and indicate if the condition was present on admission. Dr. DELORES CHAPARRO Date/Time MTDD
[2017-10-03 09:05] LABS: BASOPHILS % (AUTO) 0.9 % (0.0-2.0); EOSINOPHILS % (AUTO) 4.7 % (0.0-3.0); HEMATOCRIT 30.5 % (37.0-47.0); HEMOGLOBIN 9.7 G/DL (12.0-16.0); LYMPHOCYTES % (AUTO) 15.8 % (20.0-45.0); MEAN CORPUSCULAR VOLUME 85 FL (80-99); MONOCYTES % (AUTO) 8.2 % (1.0-10.0); NEUTROPHILS % (AUTO) 70.4 % (45.0-75.0); PLATELET COUNT 184 K/UL (150-450); RED CELL DISTRIBUTION WIDTH 15.1 % (11.6-14.8); WHITE BLOOD COUNT 7.6 K/UL (4.8-10.8)
[2017-10-03 09:15] LABS: ANION GAP 10 mmol/L (5-15); BLOOD UREA NITROGEN 20 mg/dL (7-18); CALCIUM 8.7 MG/DL (8.5-10.1); CARBON DIOXIDE 24 MMOL/L (21-32); CHLORIDE 108 MMOL/L (98-107); POTASSIUM 4.3 MMOL/L (3.5-5.1); SODIUM 142 MMOL/L (136-145)
[2017-10-03 09:35] LABS: % IRON SATURATION 19 % (15-50); IRON 54 ug/dL (50-175); TOTAL IRON BINDING CAPACITY 279 ug/dL (250-450)
--- NOTE | 2017-10-03 09:37 | Diagnostic Imaging Report ---
Indication: Abdominal pain Technique: Simmons-scale and duplex images of the upper abdomen were obtained Comparison: 12/22/[address] scan of 10/01/2017 Findings: Gallbladder is unremarkable, without stones, wall thickening, nor pericholecystic fluid. Sonographic Griffin's sign is negative. Common bile duct measures 2 mm in diameter. No intrahepatic biliary ductal dilatation. Liver is borderline enlarged. Apparent slight increased echogenicity is probably artifactual, as liver parenchyma appears normal on recent CT scans. Portal vein and hepatic veins are patent. Pancreas is unremarkable. Spleen is unremarkable. Left kidney measures 10 cm in length. Right kidney measures 10.9 cm length. Both kidneys demonstrate normal echogenicity. There is no hydronephrosis. Left kidney demonstrates some cortical thinning, also previously reported . Abdominal aorta is obscured by bowel gas . Impression: Borderline hepatomegaly Negative for gallstones or dilated ducts Left renal cortical thinning, also previously reported
[2017-10-03 12:00] VITALS: BP 132/70
--- NOTE | 2017-10-03 12:55 | Pulmonology Progress Note ---
Assessment/Plan Problems: (1) CHF exacerbation (2) Intractable abdominal pain (3) EF 25% (4) AICD (automatic cardioverter/defibrillator) present (5) Hemiplegia affecting right dominant side (6) Diabetes mellitus Assessment/Plan add carafate qid med/surg On lasix 40 QD check intake and output optimize cardiac meds sliding scale, pt/ot dvt prophylaxis Subjective ROS Limited/Unobtainable: No Interval Events: c/o epigastric pain Constitutional: Reports: no symptoms HEENT: Repors: no symptoms Allergies: Coded Allergies: No Known Allergies (Unverified , 12/18/16) Objective Last 24 Hour Vital Signs Date Time Temp Pulse Resp B/P (MAP) Pulse Ox O2 Delivery O2 Flow Rate FiO2 10/03/17 08:28 70 121/61 10/03/17 08:27 121/61 10/03/17 08:00 69 10/03/17 08:00 97.0 70 20 121/61 96 Nasal Cannula 2.0 97.0 10/03/17 04:00 68 10/03/17 04:00 97.0 68 20 123/69 96 Nasal Cannula 2.0 97.0 10/03/17 00:00 97.2 74 22 117/61 97 Nasal Cannula 2.0 97.2 10/03/17 00:00 69 10/02/17 20:44 83 125/65 10/02/17 20:00 97.2 83 20 125/65 97 Nasal Cannula 2.0 97.2 10/02/17 20:00 82 10/02/17 16:00 75 10/02/17 16:00 98.1 72 20 125/66 97 Room Air 98.1 Intake and Output 10/02/17 10/03/17 19:00 07:00 Intake Total 135 ml 600 ml Balance 135 ml 600 ml Intake IV Total 135 ml 600 ml # Voids 6 4 # Bowel Movements 2 General Appearance: WD/WN HEENT: atraumatic Respiratory/Chest: chest wall non-tender, lungs clear, normal breath sounds Breasts: no masses Cardiovascular: normal peripheral pulses Abdomen: normal bowel sounds, soft, non tender Genitourinary: normal external genitalia Extremities: no clubbing Skin: no rash 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 Laboratory Tests 10/03/17 08:00: White Blood Count 7.6, Red Blood Count 3.60L, Hemoglobin 9.7L, Hematocrit 30.5L , Mean Corpuscular Volume 85, Mean Corpuscular Hemoglobin 26.9L, Mean Corpuscular Hemoglobin Concent 31.7L, Red Cell Distribution Width 15.1H, Platelet Count 184, Mean Platelet Volume 8.9, Neutrophils (%) (Auto) 70.4, Lymphocytes (%) (Auto) 15.8L, Monocytes (%) (Auto) 8.2, Eosinophils (%) (Auto) 4.7H, Basophils (%) (Auto) 0.9, Sodium Level 142, Potassium Level 4.3, Chloride Level 108H, Carbon Dioxide Level 24, Anion Gap 10, Blood Urea Nitrogen 20H, Creatinine 1.0, Estimat Glomerular Filtration Rate 54.8, Glucose Level 107H, Calcium Level 8.7, Iron Level 54, Total Iron Binding Capacity 279, Percent Iron Saturation 19, Unsaturated Iron Binding 225 Current Medications Medications (Trade) Dose Ordered Sig/[place] Route PRN Reason Start Time Stop Time Status Last Admin Dose Admin Acetaminophen (Tylenol) 650 mg Q4H PRN ORAL fever 09/30/17 21:00 10/30/17 20:59 Al Hydroxide/Mg Hydroxide (Mylanta II) 30 ml Q6H PRN ORAL dyspepsia 09/30/17 21:00 10/30/17 20:59 Carvedilol (Coreg) 6.25 mg EVERY 12 HOURS ORAL 09/30/17 23:00 10/30/17 22:59 10/03/17 08:28 Clopidogrel Bisulfate (Plavix) 75 mg DAILY ORAL 10/01/17 09:00 10/31/17 08:59 10/03/17 08:27 Dextrose (Dextrose 50%) 25 ml STAT PRN IV Hypoglycemia Sugar btwn 60-69 09/30/17 21:00 10/30/17 20:59 Dextrose (Dextrose 50%) 50 ml STAT PRN IV Hypoglycemia Sugar <60 mg/dL 09/30/17 21:00 10/30/17 20:59 Diphenhydramine HCl (Benadryl) 25 mg Q6H PRN ORAL Itching/Pruritis 09/30/17 21:00 10/30/17 20:59 Furosemide (Lasix) 40 mg DAILY IV 10/02/17 09:00 11/01/17 08:59 10/03/17 08:26 Heparin Sodium (Porcine) (Heparin 5000 units/ml) 5,000 units EVERY 12 HOURS SUBQ 09/30/17 23:00 10/30/17 22:59 10/03/17 08:26 Insulin Aspart (NovoLOG) BEFORE MEALS AND HS SUBQ 10/01/17 06:30 10/31/17 06:29 10/03/17 11:26 Lisinopril (Zestril) 10 mg DAILY ORAL 10/02/17 09:00 11/01/17 08:59 10/03/17 08:27 Lorazepam (Ativan) 1 mg Q6H PRN ORAL For Anxiety 10/02/17 15:00 10/09/17 14:59 Morphine Sulfate (Morphine Sulfate) 2 mg Q4H PRN IVP Severe Pain (Pain Scale 7-10) 09/30/17 21:00 10/07/17 20:59 10/02/17 21:07 Nitroglycerin (Ntg) 0.4 mg Q5M PRN SL Prn Chest Pain 09/30/17 21:00 10/30/17 20:59 Ondansetron HCl (Zofran) 4 mg Q6H PRN IVP Nausea & Vomiting 09/30/17 21:00 10/30/17 20:59 Polyethylene Glycol (Miralax) 17 gm HSPRN PRN ORAL Constipation 09/30/17 21:00 10/30/17 20:59 Pregabalin (Lyrica) 50 mg BID ORAL 10/01/17 09:00 10/31/17 08:59 10/03/17 08:27 Sucralfate (Carafate) 1 gm FOUR TIMES A DAY ORAL 10/03/17 13:00 11/02/17 12:59 Temazepam (Restoril) 15 mg HSPRN PRN ORAL Insomnia 09/30/17 21:00 10/07/17 20:59 Ida Nolen MD Oct 03, 2017 12:55
[2017-10-03] MEDS ORDERED: Sucralfate 1gm tab ORAL SCH (13:00)
--- NOTE | 2017-10-03 14:19 | GI Progress Note ---
Assessment/Plan Problems: (1) Obesity ICD Codes: E66.9 - Obesity, unspecified SNOMED: 743728009 (2) Acid reflux ICD Codes: K21.9 - Gastro-esophageal reflux disease without esophagitis SNOMED: 975706705 (3) Hypoalbuminemia ICD Codes: E88.09 - Other disorders of plasma-protein metabolism, not elsewhere classified SNOMED: 570138865 (4) EF 25% (5) Abdominal pain ICD Codes: R10.9 - Unspecified abdominal pain SNOMED: 04082562 Status: stable, unchanged Status Narrative Discussed with Dr. Leal. Assessment/Plan hepatomegaly with fatty infiltration. s/p normal EGD in 2017/normal colonoscopy in 2014, see report. EF - 20% chronic abdominal pain CT AP reviewed symptomatic treatment adv diet pain mgmt prn transfusion bowel regime ppi simethicone prn pt on plavix OT/PT evaluation fu labs, iron panel, abdominal U/S repeat colonoscopy 2019 Subjective Gastrointestinal/Abdominal: Reports: abdominal pain Objective Last 24 Hour Vital Signs Date Time Temp Pulse Resp B/P (MAP) Pulse Ox O2 Delivery O2 Flow Rate FiO2 10/03/17 12:00 97.0 65 20 132/70 96 Nasal Cannula 2.0 97.0 10/03/17 08:28 70 121/61 10/03/17 08:27 121/61 10/03/17 08:00 69 10/03/17 08:00 97.0 70 20 121/61 96 Nasal Cannula 2.0 97.0 10/03/17 04:00 68 10/03/17 04:00 97.0 68 20 123/69 96 Nasal Cannula 2.0 97.0 10/03/17 00:00 97.2 74 22 117/61 97 Nasal Cannula 2.0 97.2 10/03/17 00:00 69 10/02/17 20:44 83 125/65 10/02/17 20:00 97.2 83 20 125/65 97 Nasal Cannula 2.0 97.2 10/02/17 20:00 82 10/02/17 16:00 75 10/02/17 16:00 98.1 72 20 125/66 97 Room Air 98.1 Intake and Output 10/02/17 10/03/17 19:00 07:00 Intake Total 135 ml 600 ml Balance 135 ml 600 ml Intake IV Total 135 ml 600 ml # Voids 6 4 # Bowel Movements 2 Laboratory Tests Test 10/03/17 08:00 White Blood Count 7.6 K/UL (4.8-10.8) Red Blood Count 3.60 M/UL (4.20-5.40) L Hemoglobin 9.7 G/DL (12.0-16.0) L Hematocrit 30.5 % (37.0-47.0) L Mean Corpuscular Volume 85 FL (80-99) Mean Corpuscular Hemoglobin 26.9 PG (27.0-31.0) L Mean Corpuscular Hemoglobin Concent 31.7 G/DL (32.0-36.0) L Red Cell Distribution Width 15.1 % (11.6-14.8) H Platelet Count 184 K/UL (150-450) Mean Platelet Volume 8.9 FL (6.5-10.1) Neutrophils (%) (Auto) 70.4 % (45.0-75.0) Lymphocytes (%) (Auto) 15.8 % (20.0-45.0) L Monocytes (%) (Auto) 8.2 % (1.0-10.0) Eosinophils (%) (Auto) 4.7 % (0.0-3.0) H Basophils (%) (Auto) 0.9 % (0.0-2.0) Sodium Level 142 MMOL/L (136-145) Potassium Level 4.3 MMOL/L (3.5-5.1) Chloride Level 108 MMOL/L (98-107) H Carbon Dioxide Level 24 MMOL/L (21-32) Anion Gap 10 mmol/L (5-15) Blood Urea Nitrogen 20 mg/dL (7-18) H Creatinine 1.0 MG/DL (0.55-1.30) Estimat Glomerular Filtration Rate 54.8 mL/min (>60) Glucose Level 107 MG/DL (74-106) H Calcium Level 8.7 MG/DL (8.5-10.1) Iron Level 54 ug/dL (50-175) Total Iron Binding Capacity 279 ug/dL (250-450) Percent Iron Saturation 19 % (15-50) Unsaturated Iron Binding 225 ug/dL (112-346) Height (Feet): 5 Height (Inches): 0.00 Weight (Pounds): 182 General Appearance: WD/WN, no apparent distress, alert Cardiovascular: normal rate Respiratory/Chest: normal breath sounds, no respiratory distress Abdominal Exam: normal bowel sounds, non tender, soft Extremities: normal range of motion, non-tender Rizwana Cotton N.P. Oct 03, 2017 14:19
--- NOTE | 2017-10-03 14:45 | Internal Med Progress Note ---
Subjective Date of Service: Oct 03, 2017 Physician Name Jovana Aguilar Attending Physician Brendan Wright MD Current Medications Medications (Trade) Dose Ordered Sig/[place] Route PRN Reason Start Time Stop Time Status Last Admin Dose Admin Acetaminophen (Tylenol) 650 mg Q4H PRN ORAL fever 09/30/17 21:00 10/30/17 20:59 Al Hydroxide/Mg Hydroxide (Mylanta II) 30 ml Q6H PRN ORAL dyspepsia 09/30/17 21:00 10/30/17 20:59 Carvedilol (Coreg) 6.25 mg EVERY 12 HOURS ORAL 09/30/17 23:00 10/30/17 22:59 10/03/17 08:28 Clopidogrel Bisulfate (Plavix) 75 mg DAILY ORAL 10/01/17 09:00 10/31/17 08:59 10/03/17 08:27 Dextrose (Dextrose 50%) 25 ml STAT PRN IV Hypoglycemia Sugar btwn 60-69 09/30/17 21:00 10/30/17 20:59 Dextrose (Dextrose 50%) 50 ml STAT PRN IV Hypoglycemia Sugar <60 mg/dL 09/30/17 21:00 10/30/17 20:59 Diphenhydramine HCl (Benadryl) 25 mg Q6H PRN ORAL Itching/Pruritis 09/30/17 21:00 10/30/17 20:59 Furosemide (Lasix) 40 mg DAILY IV 10/02/17 09:00 11/01/17 08:59 10/03/17 08:26 Heparin Sodium (Porcine) (Heparin 5000 units/ml) 5,000 units EVERY 12 HOURS SUBQ 09/30/17 23:00 10/30/17 22:59 10/03/17 08:26 Insulin Aspart (NovoLOG) BEFORE MEALS AND HS SUBQ 10/01/17 06:30 10/31/17 06:29 10/03/17 11:26 Lisinopril (Zestril) 10 mg DAILY ORAL 10/02/17 09:00 11/01/17 08:59 10/03/17 08:27 Lorazepam (Ativan) 1 mg Q6H PRN ORAL For Anxiety 10/02/17 15:00 10/09/17 14:59 Morphine Sulfate (Morphine Sulfate) 2 mg Q4H PRN IVP Severe Pain (Pain Scale 7-10) 09/30/17 21:00 10/07/17 20:59 10/02/17 21:07 Nitroglycerin (Ntg) 0.4 mg Q5M PRN SL Prn Chest Pain 09/30/17 21:00 10/30/17 20:59 Ondansetron HCl (Zofran) 4 mg Q6H PRN IVP Nausea & Vomiting 09/30/17 21:00 10/30/17 20:59 Polyethylene Glycol (Miralax) 17 gm HSPRN PRN ORAL Constipation 09/30/17 21:00 10/30/17 20:59 Pregabalin (Lyrica) 50 mg BID ORAL 10/01/17 09:00 10/31/17 08:59 10/03/17 08:27 Sucralfate (Carafate) 1 gm FOUR TIMES A DAY ORAL 10/03/17 13:00 11/02/17 12:59 10/03/17 13:49 Temazepam (Restoril) 15 mg HSPRN PRN ORAL Insomnia 09/30/17 21:00 10/07/17 20:59 Allergies: Coded Allergies: No Known Allergies (Unverified , 12/18/16) ROS Limited/Unobtainable: No Constitutional: Reports: no symptoms HEENT: Reports: no symptoms Cardiovascular: Reports: no symptoms Respiratory: Reports: no symptoms Gastrointestinal/Abdominal: Reports: abdominal pain Genitourinary: Reports: no symptoms 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: Reports: no symptoms Subjective 72 YO F admitted with shortness of breath and epigastric pain. Now CHF exacerbation. Cover for Int [place]-Dr Wright. Objective Last Vital Signs Date Time Temp Pulse Resp B/P (MAP) Pulse Ox O2 Delivery O2 Flow Rate FiO2 10/03/17 12:00 97.0 65 20 132/70 96 Nasal Cannula 2.0 97.0 Laboratory Tests Test 10/03/17 08:00 White Blood Count 7.6 K/UL (4.8-10.8) Red Blood Count 3.60 M/UL (4.20-5.40) L Hemoglobin 9.7 G/DL (12.0-16.0) L Hematocrit 30.5 % (37.0-47.0) L Mean Corpuscular Volume 85 FL (80-99) Mean Corpuscular Hemoglobin 26.9 PG (27.0-31.0) L Mean Corpuscular Hemoglobin Concent 31.7 G/DL (32.0-36.0) L Red Cell Distribution Width 15.1 % (11.6-14.8) H Platelet Count 184 K/UL (150-450) Mean Platelet Volume 8.9 FL (6.5-10.1) Neutrophils (%) (Auto) 70.4 % (45.0-75.0) Lymphocytes (%) (Auto) 15.8 % (20.0-45.0) L Monocytes (%) (Auto) 8.2 % (1.0-10.0) Eosinophils (%) (Auto) 4.7 % (0.0-3.0) H Basophils (%) (Auto) 0.9 % (0.0-2.0) Sodium Level 142 MMOL/L (136-145) Potassium Level 4.3 MMOL/L (3.5-5.1) Chloride Level 108 MMOL/L (98-107) H Carbon Dioxide Level 24 MMOL/L (21-32) Anion Gap 10 mmol/L (5-15) Blood Urea Nitrogen 20 mg/dL (7-18) H Creatinine 1.0 MG/DL (0.55-1.30) Estimat Glomerular Filtration Rate 54.8 mL/min (>60) Glucose Level 107 MG/DL (74-106) H Calcium Level 8.7 MG/DL (8.5-10.1) Iron Level 54 ug/dL (50-175) Total Iron Binding Capacity 279 ug/dL (250-450) Percent Iron Saturation 19 % (15-50) Unsaturated Iron Binding 225 ug/dL (112-346) Intake and Output 10/02/17 10/03/17 19:00 07:00 Intake Total 135 ml 600 ml Balance 135 ml 600 ml Intake IV Total 135 ml 600 ml # Voids 6 4 # Bowel Movements 2 Objective General Appearance: WD/WN, no apparent distress, alert EENT: PERRL/EOMI, normal ENT inspection Neck: non-tender, normal alignment, supple, normal inspection Cardiovascular: normal peripheral pulses, normal rate, regular rhythm, no gallop/murmur, no JVD Respiratory/Chest: no accessory muscle use, respiratory distress, decreased breath sounds, crackles/rales, rhonchi - bilaterally, expiratory wheezing Abdomen: normal bowel sounds, non tender, soft, no organomegaly, no mass Extremities: normal range of motion, non-tender 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 See GI note (5) LBBB (left bundle branch block) Assessment & Plan: S/P AICD. See cardiology note. (6) COPD (chronic obstructive pulmonary disease) Assessment & Plan: See pulmonary note. (7) Shortness of breath (8) Hypertension Assessment & Plan: Continue lisinopril and coreg (9) Cerebral vascular disease (10) Anemia (11) AICD (automatic cardioverter/defibrillator) present Status: not improved JOVANA AGUILAR Oct 03, 2017 14:45
[2017-10-03] MEDS: Morphine Sulfate 4mg/ml Inj IVP PRN (14:48)
[2017-10-03] MEDS ORDERED: Mylanta II UD 30ml ORAL PRN (15:30)
[2017-10-03] MEDS ORDERED: Nitroglycerin Subl 0.4mg tab SL PRN (15:30)
[2017-10-03] MEDS ORDERED: LORazepam 1mg tab ORAL PRN (15:30)
[2017-10-03] MEDS ORDERED: Morphine Sulfate 4mg/ml Inj IVP PRN (15:30)
[2017-10-03 15:50] VITALS: BP 130/43
--- NOTE | 2017-10-03 16:32 | Cardiac Electrophysiology PN ---
Assessment/Plan Assessment/Plan 1. Exacerbation of congestive heart failure with EF 25%. On Lasix 40 mg iv daily, Coreg 6.25 mg b.i.d. and lisinopril 10 mg daily. 2. Status post Biotronic biventricular defibrillator implantation. Interrogated the device and showed Nl fx. 3. Hypertension. Continue current medication. 4. Abdominal pain. It could be secondary to congestive heart failure, Had CT abdomen. follow up with Gi. 5. Hyperlipidemia, on Lipitor. 6. CKD Cr normal now. 7. Diabetes, on insulin. [place] RN Subjective Subjective Feeling better. Just transferred to [facility].No chest pain or SOB.Daughters at bedside. Objective Last 24 Hour Vital Signs Date Time Temp Pulse Resp B/P (MAP) Pulse Ox O2 Delivery O2 Flow Rate FiO2 10/03/17 15:50 97.8 77 21 130/43 97 Nasal Cannula 2.0 97.8 77 10/03/17 14:48 97.0 10/03/17 12:00 97.0 65 20 132/70 96 Nasal Cannula 2.0 97.0 10/03/17 08:28 70 121/61 10/03/17 08:27 121/61 10/03/17 08:00 69 10/03/17 08:00 97.0 70 20 121/61 96 Nasal Cannula 2.0 97.0 10/03/17 04:00 68 10/03/17 04:00 97.0 68 20 123/69 96 Nasal Cannula 2.0 97.0 10/03/17 00:00 97.2 74 22 117/61 97 Nasal Cannula 2.0 97.2 10/03/17 00:00 69 10/02/17 20:44 83 125/65 10/02/17 20:00 97.2 83 20 125/65 97 Nasal Cannula 2.0 97.2 10/02/17 20:00 82 Intake and Output 10/02/17 10/03/17 19:00 07:00 Intake Total 135 ml 600 ml Balance 135 ml 600 ml Intake IV Total 135 ml 600 ml # Voids 6 4 # Bowel Movements 2 Laboratory Tests Test 10/03/17 08:00 White Blood Count 7.6 K/UL (4.8-10.8) Red Blood Count 3.60 M/UL (4.20-5.40) L Hemoglobin 9.7 G/DL (12.0-16.0) L Hematocrit 30.5 % (37.0-47.0) L Mean Corpuscular Volume 85 FL (80-99) Mean Corpuscular Hemoglobin 26.9 PG (27.0-31.0) L Mean Corpuscular Hemoglobin Concent 31.7 G/DL (32.0-36.0) L Red Cell Distribution Width 15.1 % (11.6-14.8) H Platelet Count 184 K/UL (150-450) Mean Platelet Volume 8.9 FL (6.5-10.1) Neutrophils (%) (Auto) 70.4 % (45.0-75.0) Lymphocytes (%) (Auto) 15.8 % (20.0-45.0) L Monocytes (%) (Auto) 8.2 % (1.0-10.0) Eosinophils (%) (Auto) 4.7 % (0.0-3.0) H Basophils (%) (Auto) 0.9 % (0.0-2.0) Sodium Level 142 MMOL/L (136-145) Potassium Level 4.3 MMOL/L (3.5-5.1) Chloride Level 108 MMOL/L (98-107) H Carbon Dioxide Level 24 MMOL/L (21-32) Anion Gap 10 mmol/L (5-15) Blood Urea Nitrogen 20 mg/dL (7-18) H Creatinine 1.0 MG/DL (0.55-1.30) Estimat Glomerular Filtration Rate 54.8 mL/min (>60) Glucose Level 107 MG/DL (74-106) H Calcium Level 8.7 MG/DL (8.5-10.1) Iron Level 54 ug/dL (50-175) Total Iron Binding Capacity 279 ug/dL (250-450) Percent Iron Saturation 19 % (15-50) Unsaturated Iron Binding 225 ug/dL (112-346) Objective HEAD AND NECK: Show positive JVD. LUNGS: Decreased breath sounds. Basilar rales. CARDIOVASCULAR: Shows a regular S1 and S2 with no gallop. Defibrillator is in the left subclavian. ABDOMEN: Distended. EXTREMITIES: A 2+ pitting edema. Remi Howard MD Oct 03, 2017 16:32
[2017-10-03] MEDS: Sucralfate 1gm tab ORAL SCH ×2 (17:20→20:47)
[2017-10-03 20:00] VITALS: BP 121/50
[2017-10-03] MEDS ORDERED: Miralax 17gm pkt ORAL PRN (21:00)
--- NOTE | 2017-10-03 23:46 | General Progress Note ---
Assessment/Plan Assessment/Plan Anxiety d/o Ativan 1mg q 6hr prn/anxiety Subjective Date patient seen: Oct 03, 2017 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: Reports: anxiety, depressed Allergies: Coded Allergies: No Known Allergies (Unverified , 12/18/16) Objective Last 24 Hour Vital Signs Date Time Temp Pulse Resp B/P (MAP) Pulse Ox O2 Delivery O2 Flow Rate FiO2 10/03/17 21:00 77 130/43 10/03/17 20:00 98.0 74 20 121/50 96 98.0 10/03/17 15:50 97.8 77 21 130/43 97 Nasal Cannula 2.0 97.8 77 10/03/17 14:48 97.0 10/03/17 12:00 97.0 65 20 132/70 96 Nasal Cannula 2.0 97.0 10/03/17 08:28 70 121/61 10/03/17 08:27 121/61 10/03/17 08:00 69 10/03/17 08:00 97.0 70 20 121/61 96 Nasal Cannula 2.0 97.0 10/03/17 04:00 68 10/03/17 04:00 97.0 68 20 123/69 96 Nasal Cannula 2.0 97.0 10/03/17 00:00 97.2 74 22 117/61 97 Nasal Cannula 2.0 97.2 10/03/17 00:00 69 Intake and Output 10/02/17 10/03/17 19:00 07:00 Intake Total 135 ml 600 ml Balance 135 ml 600 ml IV Total 135 ml 600 ml # Voids 6 4 # Bowel Movements 2 Laboratory Tests 10/03/17 08:00: White Blood Count 7.6, Red Blood Count 3.60L, Hemoglobin 9.7L, Hematocrit 30.5L , Mean Corpuscular Volume 85, Mean Corpuscular Hemoglobin 26.9L, Mean Corpuscular Hemoglobin Concent 31.7L, Red Cell Distribution Width 15.1H, Platelet Count 184, Mean Platelet Volume 8.9, Neutrophils (%) (Auto) 70.4, Lymphocytes (%) (Auto) 15.8L, Monocytes (%) (Auto) 8.2, Eosinophils (%) (Auto) 4.7H, Basophils (%) (Auto) 0.9, Sodium Level 142, Potassium Level 4.3, Chloride Level 108H, Carbon Dioxide Level 24, Anion Gap 10, Blood Urea Nitrogen 20H, Creatinine 1.0, Estimat Glomerular Filtration Rate 54.8, Glucose Level 107H, Calcium Level 8.7, Iron Level 54, Total Iron Binding Capacity 279, Percent Iron Saturation 19, Unsaturated Iron Binding 225 Height (Feet): 5 Height (Inches): 0.00 Weight (Pounds): 182 Teresa Douglas M.D. Oct 03, 2017 23:46
[2017-10-04] VITALS: BP 125/50
[2017-10-04 04:00] VITALS: BP 118/59
[2017-10-04] MEDS: NovoLOG Insulin Flexpen SUBQ SCH ×3 (06:17→17:18)
[2017-10-04 08:00] VITALS: BP 117/48
[2017-10-04] MEDS ORDERED: Lisinopril 10mg tab ORAL SCH (09:00)
[2017-10-04] MEDS: Lyrica 50mg cap ORAL SCH ×2 (10:03→17:17)
[2017-10-04] MEDS: Sucralfate 1gm tab ORAL SCH ×4 (10:03→20:41)
[2017-10-04] MEDS: Carvedilol 6.25mg Tab ORAL SCH (10:04)
[2017-10-04] MEDS: Heparin 5000 units/ml inj SUBQ SCH (10:06)
[2017-10-04 12:00] VITALS: BP 116/51
--- NOTE | 2017-10-04 12:57 | Internal Med Progress Note ---
Subjective Date of Service: Oct 04, 2017 Physician Name Jovana Aguilar Attending Physician Brendan Wright MD Current Medications Medications (Trade) Dose Ordered Sig/[place] Route PRN Reason Start Time Stop Time Status Last Admin Dose Admin Acetaminophen (Tylenol) 650 mg Q4H PRN ORAL T>100.5 10/03/17 15:30 10/30/17 15:29 Al Hydroxide/Mg Hydroxide (Mylanta II) 30 ml Q6H PRN ORAL dyspepsia 10/03/17 15:30 10/30/17 15:29 Carvedilol (Coreg) 6.25 mg EVERY 12 HOURS ORAL 10/03/17 21:00 10/30/17 22:59 10/04/17 10:04 Clopidogrel Bisulfate (Plavix) 75 mg DAILY ORAL 10/04/17 09:00 10/31/17 08:59 10/04/17 10:03 Dextrose (Dextrose 50%) 25 ml STAT PRN IV Hypoglycemia Sugar btwn 60-69 10/03/17 15:30 10/30/17 15:29 Dextrose (Dextrose 50%) 50 ml STAT PRN IV Hypoglycemia Sugar <60 mg/dL 10/03/17 15:30 10/30/17 15:29 Diphenhydramine HCl (Benadryl) 25 mg Q6H PRN ORAL Itching/Pruritis 10/03/17 15:30 10/30/17 15:29 Furosemide (Lasix) 40 mg DAILY IV 10/04/17 09:00 11/01/17 08:59 10/04/17 10:03 Heparin Sodium (Porcine) (Heparin 5000 units/ml) 5,000 units EVERY 12 HOURS SUBQ 10/03/17 21:00 10/30/17 22:59 10/04/17 10:06 Insulin Aspart (NovoLOG) BEFORE MEALS AND HS SUBQ 10/03/17 16:30 10/31/17 06:29 10/04/17 12:21 Lisinopril (Zestril) 10 mg DAILY ORAL 10/04/17 09:00 11/01/17 08:59 10/04/17 10:04 Lorazepam (Ativan) 1 mg Q6H PRN ORAL For Anxiety 10/03/17 15:30 10/09/17 15:29 Morphine Sulfate (Morphine Sulfate) 2 mg Q4H PRN IVP Severe Pain (Pain Scale 7-10) 10/03/17 15:30 10/07/17 15:29 Nitroglycerin (Ntg) 0.4 mg Q5M PRN SL Prn Chest Pain 10/03/17 15:30 10/30/17 15:29 Ondansetron HCl (Zofran) 4 mg Q6H PRN IVP Nausea & Vomiting 10/03/17 15:30 10/30/17 15:29 10/03/17 21:54 Polyethylene Glycol (Miralax) 17 gm HSPRN PRN ORAL Constipation 10/03/17 21:00 10/30/17 20:59 Pregabalin (Lyrica) 50 mg BID ORAL 10/03/17 18:00 10/31/17 08:59 10/04/17 10:03 Sucralfate (Carafate) 1 gm FOUR TIMES A DAY ORAL 10/03/17 18:00 11/02/17 12:59 10/04/17 10:03 Temazepam (Restoril) 15 mg HSPRN PRN ORAL Insomnia 10/03/17 21:00 10/07/17 20:59 Allergies: Coded Allergies: No Known Allergies (Unverified , 12/18/16) ROS Limited/Unobtainable: No Constitutional: Reports: no symptoms HEENT: Reports: no symptoms Cardiovascular: Reports: no symptoms Respiratory: Reports: no symptoms Gastrointestinal/Abdominal: Reports: abdominal pain Genitourinary: Reports: no symptoms 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: Reports: no symptoms Subjective 72 YO F admitted with shortness of breath and epigastric pain. Now CHF exacerbation. Cover for [facility] [place]-Dr Wright. Objective Last Vital Signs Date Time Temp Pulse Resp B/P (MAP) Pulse Ox O2 Delivery O2 Flow Rate FiO2 10/04/17 10:04 117/48 10/04/17 10:04 68 10/04/17 08:00 97.7 16 96 97.7 10/03/17 15:50 Nasal Cannula 2.0 Intake and Output 10/03/17 10/04/17 19:00 07:00 Intake Total 500 ml Balance 500 ml Intake Oral 240 ml Other 260 ml # Voids 3 3 # Bowel Movements 1 Objective General Appearance: WD/WN, no apparent distress, alert EENT: PERRL/EOMI, normal ENT inspection Neck: non-tender, normal alignment, supple, normal inspection Cardiovascular: normal peripheral pulses, normal rate, regular rhythm, no gallop/murmur, no JVD Respiratory/Chest: no accessory muscle use, respiratory distress, decreased breath sounds, crackles/rales, rhonchi - bilaterally, expiratory wheezing Abdomen: normal bowel sounds, non tender, soft, no organomegaly, no mass Extremities: normal range of motion, non-tender 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 See GI note (5) LBBB (left bundle branch block) Assessment & Plan: S/P AICD. See cardiology note. (6) COPD (chronic obstructive pulmonary disease) Assessment & Plan: See pulmonary note. (7) Shortness of breath (8) Hypertension Assessment & Plan: Continue lisinopril and coreg (9) Cerebral vascular disease (10) Anemia (11) AICD (automatic cardioverter/defibrillator) present Status: progressing JOVANA AGUILAR Oct 04, 2017 12:57
--- NOTE | 2017-10-04 13:00 | Cardiac Electrophysiology PN ---
Assessment/Plan Assessment/Plan 1. Exacerbation of congestive heart failure with EF 25%. On Lasix 40 mg iv daily, Coreg 6.25 mg b.i.d. and lisinopril 10 mg daily. Add aldactone 25 daily 2. Status post Biotronic biventricular defibrillator implantation. Interrogated the device and showed Nl fx. 3. Hypertension. Continue current medication. 4. Abdominal pain. It could be secondary to congestive heart failure, Had CT abdomen. follow up with Gi. 5. Hyperlipidemia, on Lipitor. 6. CKD Cr normal now.Watch on iv Lasix and Aldactone and Lisinopril 7. Diabetes, on insulin. DW RN Subjective Subjective No chest pain or SOB.Very weak. Gets SOB working with PT Objective Last 24 Hour Vital Signs Date Time Temp Pulse Resp B/P (MAP) Pulse Ox O2 Delivery O2 Flow Rate FiO2 10/04/17 10:04 117/48 10/04/17 10:04 68 117/48 10/04/17 08:00 97.7 68 16 117/48 96 97.7 10/04/17 04:00 97.5 64 19 118/59 97 97.5 10/04/17 00:00 97.9 67 19 125/50 96 97.9 10/03/17 21:00 77 130/43 10/03/17 20:00 98.0 74 20 121/50 96 98.0 10/03/17 15:50 97.8 77 21 130/43 97 Nasal Cannula 2.0 97.8 77 10/03/17 14:48 97.0 Intake and Output 10/03/17 10/04/17 19:00 07:00 Intake Total 500 ml Balance 500 ml Intake Oral 240 ml Other 260 ml # Voids 3 3 # Bowel Movements 1 Objective HEAD AND NECK: positive JVD. LUNGS: Decreased breath sounds. CARDIOVASCULAR: Regular S1 and S2 with no gallop. Defibrillator is in the left subclavian. ABDOMEN: Distended. EXTREMITIES: A 2+ pitting edema. Remi Howard MD Oct 04, 2017 13:00
--- NOTE | 2017-10-04 14:17 | GI Progress Note ---
Assessment/Plan Problems: (1) Obesity ICD Codes: E66.9 - Obesity, unspecified SNOMED: 886564628 (2) Acid reflux ICD Codes: K21.9 - Gastro-esophageal reflux disease without esophagitis SNOMED: 327796927 (3) Hypoalbuminemia ICD Codes: E88.09 - Other disorders of plasma-protein metabolism, not elsewhere classified SNOMED: 202439754 (4) EF 25% (5) Abdominal pain ICD Codes: R10.9 - Unspecified abdominal pain SNOMED: 46619669 Status: stable Status Narrative Discussed with Dr. Leal. Assessment/Plan hepatomegaly with fatty infiltration. s/p normal EGD in 2017/normal colonoscopy in 2014, see report. EF - 20% chronic abdominal pain CT AP reviewed abdominal US >> unremarkable iron panel normal symptomatic treatment adv diet pain mgmt prn transfusion bowel regime ppi simethicone prn pt on plavix OT/PT evaluation fu labs repeat colonoscopy 2019 Subjective Gastrointestinal/Abdominal: Reports: abdominal pain Objective Last 24 Hour Vital Signs Date Time Temp Pulse Resp B/P (MAP) Pulse Ox O2 Delivery O2 Flow Rate FiO2 10/04/17 12:00 97.5 62 16 116/51 96 Nasal Cannula 2.0 97.5 10/04/17 10:04 117/48 10/04/17 10:04 68 117/48 10/04/17 08:00 97.7 68 16 117/48 96 97.7 10/04/17 04:00 97.5 64 19 118/59 97 97.5 10/04/17 00:00 97.9 67 19 125/50 96 97.9 10/03/17 21:00 77 130/43 10/03/17 20:00 98.0 74 20 121/50 96 98.0 10/03/17 15:50 97.8 77 21 130/43 97 Nasal Cannula 2.0 97.8 77 10/03/17 14:48 97.0 Intake and Output 10/03/17 10/04/17 19:00 07:00 Intake Total 500 ml Balance 500 ml Intake Oral 240 ml Other 260 ml # Voids 3 3 # Bowel Movements 1 Height (Feet): 5 Height (Inches): 0.00 Weight (Pounds): 182 General Appearance: WD/WN, no apparent distress, alert, obese Cardiovascular: normal rate Respiratory/Chest: normal breath sounds, no respiratory distress Abdominal Exam: normal bowel sounds, non tender, soft Extremities: normal range of motion, non-tender Rizwana Cotton N.P. Oct 04, 2017 14:17
--- NOTE | 2017-10-04 14:23 | Pulmonology Progress Note ---
Assessment/Plan Problems: (1) CHF exacerbation (2) Intractable abdominal pain (3) EF 25% (4) AICD (automatic cardioverter/defibrillator) present (5) Hemiplegia affecting right dominant side (6) Diabetes mellitus Assessment/Plan doing better med/surg On lasix 40 QD check intake and output optimize cardiac meds sliding scale, pt/ot dvt prophylaxis dc planning to home today Subjective ROS Limited/Unobtainable: No Interval Events: no new complains Allergies: Coded Allergies: No Known Allergies (Unverified , 12/18/16) Objective Last 24 Hour Vital Signs Date Time Temp Pulse Resp B/P (MAP) Pulse Ox O2 Delivery O2 Flow Rate FiO2 10/04/17 12:00 97.5 62 16 116/51 96 Nasal Cannula 2.0 97.5 10/04/17 10:04 117/48 10/04/17 10:04 68 117/48 10/04/17 08:00 97.7 68 16 117/48 96 97.7 10/04/17 04:00 97.5 64 19 118/59 97 97.5 10/04/17 00:00 97.9 67 19 125/50 96 97.9 10/03/17 21:00 77 130/43 10/03/17 20:00 98.0 74 20 121/50 96 98.0 10/03/17 15:50 97.8 77 21 130/43 97 Nasal Cannula 2.0 97.8 77 10/03/17 14:48 97.0 Intake and Output 10/03/17 10/04/17 19:00 07:00 Intake Total 500 ml Balance 500 ml Intake Oral 240 ml Other 260 ml # Voids 3 3 # Bowel Movements 1 General Appearance: WD/WN HEENT: normocephalic, atraumatic Respiratory/Chest: chest wall non-tender, lungs clear Breasts: no masses Cardiovascular: normal peripheral pulses Abdomen: normal bowel sounds, soft, non tender Genitourinary: normal external genitalia Extremities: no cyanosis 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: 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, no motor/sensory deficits Lymphatic: no neck adenopathy Current Medications Medications (Trade) Dose Ordered Sig/[place] Route PRN Reason Start Time Stop Time Status Last Admin Dose Admin Acetaminophen (Tylenol) 650 mg Q4H PRN ORAL T>100.5 10/03/17 15:30 10/30/17 15:29 Al Hydroxide/Mg Hydroxide (Mylanta II) 30 ml Q6H PRN ORAL dyspepsia 10/03/17 15:30 10/30/17 15:29 Carvedilol (Coreg) 6.25 mg EVERY 12 HOURS ORAL 10/03/17 21:00 10/30/17 22:59 10/04/17 10:04 Clopidogrel Bisulfate (Plavix) 75 mg DAILY ORAL 10/04/17 09:00 10/31/17 08:59 10/04/17 10:03 Dextrose (Dextrose 50%) 25 ml STAT PRN IV Hypoglycemia Sugar btwn 60-69 10/03/17 15:30 10/30/17 15:29 Dextrose (Dextrose 50%) 50 ml STAT PRN IV Hypoglycemia Sugar <60 mg/dL 10/03/17 15:30 10/30/17 15:29 Diphenhydramine HCl (Benadryl) 25 mg Q6H PRN ORAL Itching/Pruritis 10/03/17 15:30 10/30/17 15:29 Furosemide (Lasix) 40 mg DAILY IV 10/04/17 09:00 11/01/17 08:59 10/04/17 10:03 Heparin Sodium (Porcine) (Heparin 5000 units/ml) 5,000 units EVERY 12 HOURS SUBQ 10/03/17 21:00 10/30/17 22:59 10/04/17 10:06 Insulin Aspart (NovoLOG) BEFORE MEALS AND HS SUBQ 10/03/17 16:30 10/31/17 06:29 10/04/17 12:21 Lisinopril (Zestril) 10 mg DAILY ORAL 10/04/17 09:00 11/01/17 08:59 10/04/17 10:04 Lorazepam (Ativan) 1 mg Q6H PRN ORAL For Anxiety 10/03/17 15:30 10/09/17 15:29 Morphine Sulfate (Morphine Sulfate) 2 mg Q4H PRN IVP Severe Pain (Pain Scale 7-10) 10/03/17 15:30 10/07/17 15:29 Nitroglycerin (Ntg) 0.4 mg Q5M PRN SL Prn Chest Pain 10/03/17 15:30 10/30/17 15:29 Ondansetron HCl (Zofran) 4 mg Q6H PRN IVP Nausea & Vomiting 10/03/17 15:30 10/30/17 15:29 10/03/17 21:54 Polyethylene Glycol (Miralax) 17 gm HSPRN PRN ORAL Constipation 10/03/17 21:00 10/30/17 20:59 Pregabalin (Lyrica) 50 mg BID ORAL 10/03/17 18:00 10/31/17 08:59 10/04/17 10:03 Spironolactone (Aldactone) 25 mg DAILY ORAL 10/05/17 09:00 11/04/17 08:59 Sucralfate (Carafate) 1 gm FOUR TIMES A DAY ORAL 10/03/17 18:00 11/02/17 12:59 10/04/17 10:03 Temazepam (Restoril) 15 mg HSPRN PRN ORAL Insomnia 10/03/17 21:00 10/07/17 20:59 Ida Nolen MD Oct 04, 2017 14:23
[2017-10-04 16:15] VITALS: BP 110/50
[2017-10-04 20:00] VITALS: BP 123/54
[2017-10-05] MEDS ORDERED: Spironolactone 25mg tab ORAL SCH (09:00)
--- NOTE | 2017-10-05 14:20 | General Progress Note ---
Assessment/Plan Status: stable, progressing Assessment/Plan Anxiety d/o Ativan 1mg q 6hr prn/anxiety Subjective Date patient seen: Oct 04, 2017 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: Reports: anxiety, emotional problems Allergies: Coded Allergies: No Known Allergies (Unverified , 12/18/16) Subjective the pt is the same anxious Objective Last 24 Hour Vital Signs Date Time Temp Pulse Resp B/P (MAP) Pulse Ox O2 Delivery O2 Flow Rate FiO2 10/04/17 20:00 98.4 70 20 123/54 98 Nasal Cannula 98.4 10/04/17 16:15 98.1 60 17 110/50 Nasal Cannula 98.1 Intake and Output 10/04/17 10/05/17 19:00 07:00 Intake Total 1200 ml Balance 1200 ml Other 1200 ml # Voids 2 Height (Feet): 5 Height (Inches): 0.00 Weight (Pounds): 182 General Appearance: no apparent distress, alert Neurologic: oriented x 3, responsive Teresa Douglas M.D. Oct 05, 2017 14:20
--- NOTE | 2017-10-05 16:43 | Discharge Summary ---
Discharge Summary Discharge Summary Discharge Summary DATE OF ADMISSION: 09/30/2012 DATE OF DISCHARGE: 10/04/2017 CONSULTANTS: Dr. Teresa Leal [facility] HOSPITAL COURSE: Patient is a 72-year-old female, presented with chief complaint of abdominal pain. Symptoms started 3 days prior to admission. Patient experienced epigastric pain, described as sharp, 10 over 10 in intensity and pain was on and off. She denied nausea, vomiting, diarrhea, or constipation. She has medical history significant for COPD, congestive heart failure, cardiomyopathy, diabetes type 2, hypertension, CVA with right hemiparesis, history of cervical cancer status post total abdominal hysterectomy, iron deficiency anemia, complete left bundle branch block, status post AICD placement. On evaluation at ED, alkaline phosphatase was elevated to 148, lipase was normal at 164, amylase was 49, BNP was 2954. She had abdominal and pelvic CT that showed no acute abdominal or pelvic abnormality. There was bilateral pleural effusion and cardiomegaly. Chest x-ray showed pulmonary vascular congestion. Interstitial edema/infiltrates. She underwent GI evaluation. She was given symptomatic treatment. She was given dicyclomine 1 and Carafate. She was given MiraLAX. Diet was advanced as tolerated. Anemia workup was done. Iron panel was normal, stool OB was negative. Patient has exacerbation of congestive heart failure, prior echocardiogram with EF of 25%. She was continued on Coreg twice a day. Lasix was increased to 40 mg daily. She was given JAROCHO inhibitor. Aldactone was added. She was continued on Plavix. She is status post Biotronik biventricular defibrillator implantation and interrogation showed normal function. She had anxiety and low energy. She was diagnosed with anxiety disorder and was given Ativan prn. She was given PT and OT. She was eventually cleared for discharge. To continue home health and O2 support at home. 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 DISCHARGE INSTRUCTIONS: Follow up with PCP in a week. I have been assigned to dictate discharge summary on this account, and I was not involved in the patient's management. Suzie Jin NP Oct 05, 2017 16:43
== END 2017-10-04 20:50 | disposition home health service (06) | DRG 291 ==
LOC: EMR 19:55 → 2E 20:32 → EDBEDREQ 21:25 → 4E 10-03 14:55
DX: I13.0 Hypertensive heart and chronic kidney disease with heart failure and stage 1 through stage 4 chronic kidney disease, or unspecified chronic kidney disease (principal); I50.43 Acute on chronic combined systolic (congestive) and diastolic (congestive) heart failure; I69.351 Hemiplegia and hemiparesis following cerebral infarction affecting right dominant side; E11.22 Type 2 diabetes mellitus with diabetic chronic kidney disease; I42.9 Cardiomyopathy, unspecified; I44.7 Left bundle-branch block, unspecified; Z79.4 Long term (current) use of insulin; E78.5 Hyperlipidemia, unspecified; D50.9 Iron deficiency anemia, unspecified; Z95.810 Presence of automatic (implantable) cardiac defibrillator; N18.9 Chronic kidney disease, unspecified; J44.9 Chronic obstructive pulmonary disease, unspecified; Z85.41 Personal history of malignant neoplasm of cervix uteri; Z90.710 Acquired absence of both cervix and uterus; F41.9 Anxiety disorder, unspecified; R10.13 Epigastric pain; I50.84 End stage heart failure; R13.10 Dysphagia, unspecified; I25.10 Atherosclerotic heart disease of native coronary artery without angina pectoris; K21.9 Gastro-esophageal reflux disease without esophagitis; E66.9 Obesity, unspecified
CPT/HCPCS: 36415; 71045; 74177; 76700; 80048; 80053; 81003; 82150; 82270; 82378; 82550; 82553; 82962; 83036; 83540; 83550; 83690; 83880; 84443; 84484; 85025; 85610; 85730; 93005; 93306; 93970; 99285; J1815; J2405

== ENCOUNTER 2017-10-16 10:41 | Emergency (ER) | payer MEDICARE, OTHER ==
[~2017-10-16] VITALS: Ht 162.6 cm; Wt 95.3 kg
[~2017-10-16 10:41] MED LIST changes: +DOCUSATE SODIU250 MG ORAL
[2017-10-16 11:34] VITALS: BP 131/67
[2017-10-16] MEDS ORDERED: PLAVIX75 MG ORAL (11:36)
[2017-10-16] MEDS ORDERED: MI-ACID80 MG PO (11:36)
[2017-10-16] MEDS ORDERED: CARVEDILOL3.125 MG ORAL (11:36)
[2017-10-16 12:01] LABS: APPEARANCE,URINE CLEAR; BILIRUBIN, URINE NEGATIVE (NEGATIVE); COLOR,URINE PALE YELLOW; GLUCOSE, URINE (UA) NEGATIVE (NEGATIVE); KETONES,URINE NEGATIVE (NEGATIVE); LEUKOCYTE ESTERASE ,URINE 2+ (NEGATIVE); NITRITE,URINE NEGATIVE (NEGATIVE); PH,URINE 6.5 (4.5-8.0); PROTEIN,URINE NEGATIVE (NEGATIVE); UROBILINOGEN,URINE NORMAL MG/DL (0.0-1.0)
--- NOTE | 2017-10-16 12:23 | Emergency Room Report ---
History of Present Illness General Chief Complaint: Abdominal Pain Source: Patient, EMS Present Illness HPI 72yo F p/w R flank pain for the past 2 days as well as swelling in both legs She denies n/v, d/c, urinary symptoms and does report chronic SOB Her pain is constant and radiates to R flank Allergies: Coded Allergies: No Known Allergies (Unverified , 12/18/16) Patient History Past Medical History: see triage record Reviewed Nursing Documentation: PMH: Agreed; PSxH: Agreed Nursing Documentation-PMH Past Medical History: No History, Except For Hx Cardiac Problems: Yes - CHF Hx Hypertension: Yes Hx Pacemaker: Yes Hx Asthma: No Hx COPD: Yes Hx Diabetes: Yes Hx Cancer: Yes - Uterine Tumor Hx Gastrointestinal Problems: Yes Hx Dialysis: No - CKD Hx Neurological Problems: Yes - CVA Hx Cerebrovascular Accident: Yes - RT SIDE Hx Transient Ischemic Attacks: No Hx Dementia: No Hx Alzheimer's Disease: No Hx Parkinson's Disease: No Hx Meningitis: No Hx Encephalitis: No Hx Seizures: No Hx Epilepsy: No Hx Multiple Sclerosis: No Hx Cerebral Palsy: No Hx Amyotrophic Lat Sclerosis: No Hx Guillian-[place] Syndrome: No Hx Paralysis: Yes - rt sided minor paralysis d/t CVA Hx Peripheral Neuropathy: No Hx Spinal Cord Injury: No Hx Head Trauma: No Hx Traumatic Brain Injury: No Hx Memory Loss: No Hx Concentration Difficulty: No Hx Speech Problem: No Hx Tremors: No Hx Vertigo: No Hx Dizziness: Yes Hx Syncope: No Hx Headaches: No Hx Aphasia: No Hx Dysphasia: No Hx Numbness: No Hx Weakness: No Hx Fatigue: No Hx Neurologic Surgery: No Hx Brain Shunt: No Review of Systems All Other Systems: negative except mentioned in HPI Physical Exam Vital Signs Date Time Temp Pulse Resp B/P (MAP) Pulse Ox O2 Delivery O2 Flow Rate FiO2 10/16/17 10:40 98.5 88 20 138/78 99 Nasal Cannula 2.0 98.4 Sp02 EP Interpretation: reviewed, normal General Appearance: no apparent distress, alert, non-toxic Head: normocephalic Eyes: bilateral eye normal inspection, bilateral eye PERRL, bilateral eye EOMI ENT: normal ENT inspection, hearing 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, normal pharynx, no angioedema, normal voice, moist mucus membranes Neck: normal inspection, full range of motion, supple, supple/symm/no masses Respiratory: chest non-tender, lungs clear, normal breath sounds, chest symmetrical, palpation of chest normal Cardiovascular #1: normal peripheral pulses, regular rate, rhythm, edema - 1+ Bl L LE Cardiovascular #2: 2+ radial (R), 2+ radial (L) Gastrointestinal: normal inspection, soft, no mass, no guarding, no rebound, tenderness - R sided diffuse tenderness Rectal: deferred Genitourinary: normal inspection, no CVA tenderness Musculoskeletal: back normal, gait/station normal, normal range of motion, non- tender, no calf tenderness Neurologic: alert, responsive, door worker III-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 as tested, motor strength/tone normal - R sided chronic weakness, sensory intact, speech normal Psychiatric: judgement/insight normal, memory normal, mood/affect normal, no suicidal/homicidal ideation Skin: normal color, no rash, warm/dry, normal turgor Lymphatic: no adenopathy Medical Decision Making Diagnostic Impression: Primary Impression: Abdominal pain Additional Impression: Pleural effusion ER Course Patient with normal labs, urinalysis consistent with UTI, CT scan showed no acute intra-abdominal pathology, however she does have pleural effusions, which may be explained in chronic shortness of breath She is in no severe distress, has soft but mildly tender abdomen, will dc home with F/U with PMD for referral to pulmonology; Will give lasix here and a few days worth so she can get diuresed as an outpatient and get f/u. EKG Diagnostic Results EKG Time: 10:58 EP Interpretation: a-sensed, v-paced 90 Rate: normal Rhythm: other - paced ST Segments: no acute changes Rhythm Strip Diag. Results Rhythm Strip Time: 12:22 EP Interpretation: yes Rate: 105 Rhythm: no PVC's, no ectopy, other - V-paced Last Vital Signs Date Time Temp Pulse Resp B/P (MAP) Pulse Ox O2 Delivery O2 Flow Rate FiO2 10/16/17 11:34 98.4 100 27 131/67 98 Nasal Cannula 2.0 98.4 Status: unchanged Disposition: HOME, SELF-CARE Condition: Stable Referrals: NON PHYSICIAN (PCP) JOB IVORY M.D October 16, 2017 12:23
--- NOTE | 2017-10-16 12:24 | Diagnostic Imaging Report ---
Indication: Abdominal pain Technique: Continuous helical transaxial imaging of the abdomen and pelvis was obtained from the lung bases to the pubic symphysis. No intravenous contrast was administered. Coronal 2-D reformats were also obtained. Automatic Exposure Control was utilized. Total Dose length Product (DLP): 875.[address] Dose Index Volume (CTDIvol): 18.4 mGy Comparison: 10/01/2017 CT Findings: Small bilateral pleural effusions are present slightly larger on the right. Basilar reticulation may be indicative of atelectasis. Heart is enlarged. Pacemaker is noted. Small hiatal hernia is present. Mild constipation of the aorta and other arterial structures are demonstrated. There is a nonobstructive stone within the central part of the right kidney. There is no hydronephrosis. The urinary bladder is nondistended. 3 mm right adrenal nodule noted appears similar previously. Diverticula demonstrated within the colon. No definite diverticulitis appreciated. Uterus is absent. The bones are osteopenic in keeping with the patient's age. No obvious fracture identified. IMPRESSION: No significant change compared to the prior study 10/01/2017 Tiny nonobstructive stone in the right kidney suspected. No hydronephrosis. Atherosclerotic vascular disease Tiny right adrenal nodule unchanged Small hiatal hernia Trace bilateral pleural effusions slightly larger on the right Cardiomegaly. Pacemaker. Bilateral renal scarring. Status post hysterectomy. The CT scanner at [facility] is accredited by the [employer] and the scans are performed using dose optimization techniques as appropriate to a performed exam including Automatic Exposure control.
[2017-10-16 12:38] LABS: EOSINOPHILS % (AUTO) 2.4 % (0.0-3.0); HEMATOCRIT 35.2 % (37.0-47.0); HEMOGLOBIN 11.2 G/DL (12.0-16.0); LYMPHOCYTES % (AUTO) 16.9 % (20.0-45.0); MEAN CORPUSCULAR VOLUME 85 FL (80-99); MONOCYTES % (AUTO) 7.3 % (1.0-10.0); NEUTROPHILS % (AUTO) 72.3 % (45.0-75.0); PLATELET COUNT 257 K/UL (150-450); RED BLOOD COUNT 4.16 M/UL (4.20-5.40); RED CELL DISTRIBUTION WIDTH 15.4 % (11.6-14.8); WHITE BLOOD COUNT 9.5 K/UL (4.8-10.8)
[2017-10-16 12:42] LABS: ANION GAP 7 mmol/L (5-15); BLOOD UREA NITROGEN 23 mg/dL (7-18); CALCIUM 8.7 MG/DL (8.5-10.1); CARBON DIOXIDE 26 MMOL/L (21-32); CHLORIDE 108 MMOL/L (98-107); POTASSIUM 4.7 MMOL/L (3.5-5.1); SODIUM 141 MMOL/L (136-145)
[2017-10-16 12:49] LABS: ALANINE AMINOTRANSFERASE 23 U/L (12-78); ALBUMIN 3.3 G/DL (3.4-5.0); ALBUMIN/GLOBULIN RATIO 0.7 (1.0-2.7); ALKALINE PHOSPHATASE 102 U/L (46-116); ASPARTATE AMINO TRANSFERASE 50 U/L (15-37); BILIRUBIN,TOTAL 0.7 MG/DL (0.2-1.0)
[2017-10-16 13:07] VITALS: BP 112/61
[2017-10-16] MEDS ORDERED: FUROSEMIDE40 MG ORAL (13:56)
[2017-10-16] MEDS ORDERED: DICYCLOMINE HCL10 MG PO (13:56)
[2017-10-16 15:09] VITALS: BP 116/57
[2017-10-16 16:00] VITALS: BP 116/57
== END 2017-10-16 16:05 | disposition home or self-care (01) ==
LOC: EDBD 10:41 → EMR 10:59
DX: R10.9 Unspecified abdominal pain (principal); J90 Pleural effusion, not elsewhere classified; E11.9 Type 2 diabetes mellitus without complications; I11.0 Hypertensive heart disease with heart failure; E87.70 Fluid overload, unspecified; I50.9 Heart failure, unspecified; Z95.0 Presence of cardiac pacemaker; I69.323 Fluency disorder following cerebral infarction; I69.351 Hemiplegia and hemiparesis following cerebral infarction affecting right dominant side; K44.9 Diaphragmatic hernia without obstruction or gangrene
CPT/HCPCS: 36415; 74176; 80053; 81003; 83690; 85025; 96374; 99284; J1940

== ENCOUNTER 2017-11-27 23:11 | Inpatient (IN) | payer MEDICARE, OTHER ==
[~2017-11-27] VITALS: Ht 154.9 cm; Wt 81.8 kg
[~2017-11-27 23:11] MED LIST changes: +DICYCLOMINE HCL10 MG PO; +PLAVIX75 MG ORAL
[2017-11-27 23:30] VITALS: BP 133/58
[2017-11-28] VITALS (7 sets, daily range): BP systolic 100–130; BP diastolic 50–66
[2017-11-28 00:16] LABS: BASOPHILS % (AUTO) 0.6 % (0.0-2.0); EOSINOPHILS % (AUTO) 2.8 % (0.0-3.0); HEMATOCRIT 36.7 % (37.0-47.0); HEMOGLOBIN 11.5 G/DL (12.0-16.0); LYMPHOCYTES % (AUTO) 17.8 % (20.0-45.0); MEAN CORPUSCULAR VOLUME 82 FL (80-99); MONOCYTES % (AUTO) 8.3 % (1.0-10.0); NEUTROPHILS % (AUTO) 70.5 % (45.0-75.0); PLATELET COUNT 227 K/UL (150-450); RED BLOOD COUNT 4.48 M/UL (4.20-5.40); RED CELL DISTRIBUTION WIDTH 14.7 % (11.6-14.8); WHITE BLOOD COUNT 11.4 K/UL (4.8-10.8)
[2017-11-28 00:37] LABS: ANION GAP 10 mmol/L (5-15); BLOOD UREA NITROGEN 37 mg/dL (7-18); CALCIUM 8.5 MG/DL (8.5-10.1); CARBON DIOXIDE 24 MMOL/L (21-32); CHLORIDE 106 MMOL/L (98-107); CREATININE 1.4 MG/DL (0.55-1.30); POTASSIUM 3.8 MMOL/L (3.5-5.1); SODIUM 140 MMOL/L (136-145)
[2017-11-28 00:38] LABS: INR 0.9 (0.9-1.1)
[2017-11-28 00:51] LABS: ALANINE AMINOTRANSFERASE 19 U/L (12-78); ALBUMIN 3.1 G/DL (3.4-5.0); ALBUMIN/GLOBULIN RATIO 0.6 (1.0-2.7); ALKALINE PHOSPHATASE 120 U/L (46-116); ASPARTATE AMINO TRANSFERASE 16 U/L (15-37); BILIRUBIN,TOTAL 0.3 MG/DL (0.2-1.0); CKMB 0.6 NG/ML (0.0-3.6); CREATINE KINASE 35 U/L (26-308)
[2017-11-28] MEDS ORDERED: NEXIUM40 MG ORAL (00:52)
[2017-11-28] MEDS ORDERED: LEVEMIR FL100 UNIT/2 SQ (00:52)
[2017-11-28] MEDS ORDERED: GABAPENTIN100 MG ORAL (00:52)
[2017-11-28] MEDS ORDERED: ASCORBIC ACID500 M4 ORAL (00:52)
[2017-11-28] MEDS ORDERED: MULTIVITAMINS1 EAC2 ORAL (00:52)
[2017-11-28] MEDS ORDERED: LISINOPRIL2.5 MG ORAL (00:52)
[2017-11-28] MEDS ORDERED: DIGOXIN250 MCG ORAL (00:52)
--- NOTE | 2017-11-28 01:09 | Emergency Room Report ---
History of Present Illness General Chief Complaint: Dyspnea/Respdistress Source: Patient, Family Member Present Illness HPI This is a 72-year-old female with a history of high blood pressure and CHF. She presents with chief complaint of shortness of breath and leg swelling. No fever chills. Onset for last 3-4 days. Worse with exertion. Better with rest. No nausea no vomiting. No chest pain. Allergies: Coded Allergies: No Known Allergies (Unverified , 12/18/16) Patient History Past Medical History: see triage record, old chart reviewed, HTN, CAD, CHF Past Surgical History: other Pertinent Family History: none Social History: Denies: smoking Last Menstrual Period: n/a Now: No Immunizations: other Reviewed Nursing Documentation: PMH: Agreed; PSxH: Agreed Nursing Documentation-PMH Hx Cardiac Problems: Yes - CHF Hx Hypertension: Yes Hx Pacemaker: Yes Hx Asthma: No Hx COPD: Yes Hx Diabetes: Yes Hx Cancer: Yes - Uterine Tumor Hx Gastrointestinal Problems: Yes Hx Dialysis: No - CKD Hx Neurological Problems: Yes - CVA Hx Cerebrovascular Accident: Yes - RT SIDE WEAKNESS Hx Transient Ischemic Attacks: No Hx Dementia: No Hx Alzheimer's Disease: No Hx Parkinson's Disease: No Hx Meningitis: No Hx Encephalitis: No Hx Seizures: No Hx Epilepsy: No Hx Multiple Sclerosis: No Hx Cerebral Palsy: No Hx Amyotrophic Lat Sclerosis: No Hx Guillian-[place] Syndrome: No Hx Paralysis: Yes - rt sided minor paralysis d/t CVA Hx Peripheral Neuropathy: No Hx Spinal Cord Injury: No Hx Head Trauma: No Hx Traumatic Brain Injury: No Hx Memory Loss: No Hx Concentration Difficulty: No Hx Speech Problem: No Hx Tremors: No Hx Vertigo: No Hx Dizziness: Yes Hx Syncope: No Hx Headaches: No Hx Aphasia: No Hx Dysphasia: No Hx Numbness: No Hx Weakness: No Hx Fatigue: No Hx Neurologic Surgery: No Hx Brain Shunt: No Review of Systems Eye: Denies: eye pain, blurred vision ENT: Denies: ear pain, nose congestion, throat swelling Respiratory: Reports: cough, shortness of breath Cardiovascular: Denies: chest pain, palpitations Gastrointestinal: Denies: abdominal pain, diarrhea, nausea, vomiting Musculoskeletal: Denies: back pain, joint pain Skin: Denies: rash Neurological: Denies: headache, numbness Endocrine: Denies: increased thirst, increased urine Hematologic/Lymphatic: Denies: easy bruising All Other Systems: negative except mentioned in HPI Physical Exam Vital Signs Date Time Temp Pulse Resp B/P (MAP) Pulse Ox O2 Delivery O2 Flow Rate FiO2 11/27/17 23:22 97.6 99 22 93 Room Air 97.5 11/27/17 23:30 133/58 vitals with borderline pulse ox Sp02 EP Interpretation: reviewed, abnormal General Appearance: well appearing, no apparent distress, alert, mild distress , obese Head: normocephalic, atraumatic Eyes: bilateral eye PERRL, bilateral eye EOMI ENT: hearing 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, normal pharynx Neck: full range of motion, supple, no meningismus Respiratory: chest non-tender, lungs clear, rales Cardiovascular #1: regular rate, rhythm, no murmur Gastrointestinal: normal bowel sounds, non tender, no mass, no organomegaly, no bruit, non-distended Musculoskeletal: back normal, normal range of motion Neurologic: alert, oriented x3 Psychiatric: mood/affect normal Skin: warm/dry Medical Decision Making Diagnostic Impression: Primary Impression: Acute CHF Qualified Codes: I50.9 - Heart failure, unspecified ER Course Patient with CHF exacerbation. No evidence of ACS, PE, dissection to name a few. First set of troponin negative. Will admit. I discussed the case with Dr. Wright and Dr. Nolen for admission. Lab Results Impression labs with elevated bnp EKG Diagnostic Results Rate: normal Rhythm: NSR ST Segments: other - paced rhythm Rhythm Strip Diag. Results Rhythm Strip Time: 01:09 EP Interpretation: yes Rate: 90 Rhythm: NSR, no PVC's, no ectopy Chest X-Ray Diagnostic Results Chest X-Ray Diagnostic Results : Chest X-Ray Ordered: Yes # of Views/Limited/Complete: 1 View Indication: Shortness of Breath EP Interpretation: Yes Interpretation: no consolidation, no effusion, no pneumothorax, other - CM with chf Impression: Other - chf Electronically Signed by: Yeison Holliday MD Last Vital Signs Date Time Temp Pulse Resp B/P (MAP) Pulse Ox O2 Delivery O2 Flow Rate FiO2 11/27/17 23:30 97.5 99 22 133/58 93 Room Air 97.5 Status: improved Disposition: ADMITTED INPATIENT Condition: Serious Referrals: Brendan Wright MD (PCP) YEISON HOLLIDAY M.D. Nov 28, 2017 01:09
[2017-11-28 02:21] LABS: BILIRUBIN, URINE NEGATIVE (NEGATIVE); COLOR,URINE PALE YELLOW; GLUCOSE, URINE (UA) NEGATIVE (NEGATIVE); KETONES,URINE NEGATIVE (NEGATIVE); LEUKOCYTE ESTERASE ,URINE 3+ (NEGATIVE); NITRITE,URINE NEGATIVE (NEGATIVE); PH,URINE 6 (4.5-8.0); PROTEIN,URINE NEGATIVE (NEGATIVE); UROBILINOGEN,URINE NORMAL MG/DL (0.0-1.0)
[2017-11-28 02:32] LABS: APPEARANCE,URINE SLIGHTLY CLOUDY
[2017-11-28] MEDS ORDERED: Albuterol/Ipratropium 3ml neb HHN PRN (06:15)
[2017-11-28] MEDS ORDERED: Miralax 17gm pkt ORAL PRN (06:15)
[2017-11-28] MEDS: NovoLOG Insulin Flexpen SUBQ SCH ×4 (06:30→20:50)
[2017-11-28] MEDS: Heparin 5000 units/ml inj SUBQ SCH ×2 (09:14→20:49)
[2017-11-28] MEDS: Cefepime HCl 1 GM in D5W 110 ML IVPB SCH (09:14)
[2017-11-28] MEDS: Lyrica 50mg cap ORAL SCH ×2 (09:16→17:23)
[2017-11-28] MEDS: Carvedilol 6.25mg Tab ORAL SCH ×2 (10:54→20:48)
--- NOTE | 2017-11-28 12:06 | Consultation ---
History of Present Illness General Date patient seen: Nov 28, 2017 Time patient seen: 11:18 Chief Complaint: Dyspnea/Respdistress Present Illness HPI Patient with cardiomyopathy, ICD, systolic heart failure, CVA, valvular heart disease presents with LE edema worsening. Allergies: Coded Allergies: No Known Allergies (Unverified , 12/18/16) Medication History Scheduled Ascorbic Acid* (Ascorbic Acid*), 500 MG ORAL TWICE A DAY, (Reported) Aspirin Ec* (Aspirin Ec*), 81 MG ORAL DAILY, (Reported) Atorvastatin Calcium* (Atorvastatin Calcium*), 40 MG ORAL BEDTIME, (Reported) Carvedilol (Coreg), 6.25 MG ORAL EVERY 12 HOURS Carvedilol* (Carvedilol*), 3.125 MG ORAL EVERY 12 HOURS, (Reported) Clopidogrel Bisulfate* (Plavix*), 75 MG ORAL DAILY, (Reported) Clopidogrel* (Clopidogrel*), 75 MG ORAL DAILY, (Reported) Digoxin* (Digoxin*), Unknown Dose ORAL DAILY, (Reported) Esomeprazole Magnesium (Nexium), 40 MG ORAL DAILY, (Reported) Furosemide* (Lasix*), 40 MG ORAL DAILY, (Reported) Furosemide* (Lasix*), 40 MG ORAL DAILY Insulin Aspart (Novolog Flexpen), 0 UNITS SUBQ BEFORE MEALS AND HS Insulin Glargine (Lantus), 0 SUBQ BEDTIME, (Reported) Isosorbide Dinitrate* (Isordil*), 30 MG ORAL DAILY, (Reported) Lisinopril* (Lisinopril*), Unknown Dose ORAL DAILY, (Reported) Loratadine (Loratadine), 10 MG PO DAILY, (Reported) Multivitamins* (Multivitamins*), 1 TAB ORAL DAILY, (Reported) Polyethylene Glycol 3350* (Polyethylene Glycol 3350*), 17 GM ORAL DAILY, ( Reported) Pregabalin (Lyrica), 50 MG ORAL BID, (Reported) Spironolactone* (Aldactone*), 25 MG ORAL DAILY, (Reported) Sucralfate (Carafate), 1 GM ORAL FOUR TIMES A DAY Scheduled PRN Acetaminophen* (Tylenol Extra Strength*), 500 MG ORAL Q6H PRN for Mild Pain/ Temp > 100.5, (Reported) Dicyclomine Hcl* (Dicyclomine Hcl*), 10 MG PO QID PRN for Abdominal cramps Miscellaneous Medications Docusate Sodium* (Docusate Sodium*), 250 MG ORAL, (Reported) Gabapentin* (Gabapentin*), Unknown Dose ORAL, (Reported) Insulin Detemir (Levemir Flextouch), 100 UNIT SQ, (Reported) Simethicone (Mi-Acid), 80 MG PO, (Reported) Simethicone (Mi-Acid), 80 MG PO, (Reported) Patient History Healthcare decision maker Helson Resuscitation status Full Code Advanced Directive on File Review of Systems Constitutional: Reports: weakness Eye: Reports: no symptoms ENT: Reports: no symptoms Respiratory: Reports: no symptoms Cardiovascular: Reports: PND Gastrointestinal: Reports: no symptoms Genitourinary: Reports: no symptoms Musculoskeletal: Reports: no symptoms Skin: Reports: no symptoms Psychiatric: Reports: no symptoms Neurological: Reports: no symptoms Endocrine: Reports: no symptoms Hematologic/Lymphatic: Reports: no symptoms Physical Exam General Appearance: no apparent distress Lines, tubes and drains: peripheral HEENT: normocephalic Neck: non-tender Respiratory/Chest: chest wall non-tender Cardiovascular/Chest: JVD, diastolic murmur, gallop/S4, pacemaker/AICD Abdomen: normal bowel sounds Genitourinary/Rectal: normal genital exam Skin Exam: normal pigmentation 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 Last 24 Hour Vital Signs Date Time Temp Pulse Resp B/P (MAP) Pulse Ox O2 Delivery O2 Flow Rate FiO2 11/28/17 10:54 87 123/66 11/28/17 09:17 87 11/28/17 08:00 97.8 84 19 110/65 95 Room Air 97.8 11/28/17 03:21 96.6 87 12 105/63 95 Room Air 96.6 11/28/17 02:45 83 11/28/17 02:20 97.5 82 18 119/50 94 Room Air 97.5 11/28/17 02:04 97.5 82 18 119/50 94 Room Air 97.5 11/28/17 01:33 82 18 130/62 95 Room Air 11/27/17 23:30 97.5 99 22 133/58 93 Room Air 97.5 11/27/17 23:30 99 20 Room Air 11/27/17 23:22 97.6 99 22 93 Room Air 97.5 Intake and Output 11/27/17 11/28/17 19:00 07:00 Output Total 1700 ml Balance -1700 ml Output Urine Total 1700 ml # Bowel Movements 1 Laboratory Tests Test 11/27/17 23:55 11/28/17 01:20 11/28/17 07:30 White Blood Count 11.4 K/UL (4.8-10.8) H Red Blood Count 4.48 M/UL (4.20-5.40) Hemoglobin 11.5 G/DL (12.0-16.0) L Hematocrit 36.7 % (37.0-47.0) L Mean Corpuscular Volume 82 FL (80-99) Mean Corpuscular Hemoglobin 25.7 PG (27.0-31.0) L Mean Corpuscular Hemoglobin Concent 31.4 G/DL (32.0-36.0) L Red Cell Distribution Width 14.7 % (11.6-14.8) Platelet Count 227 K/UL (150-450) Mean Platelet Volume 9.0 FL (6.5-10.1) Neutrophils (%) (Auto) 70.5 % (45.0-75.0) Lymphocytes (%) (Auto) 17.8 % (20.0-45.0) L Monocytes (%) (Auto) 8.3 % (1.0-10.0) Eosinophils (%) (Auto) 2.8 % (0.0-3.0) Basophils (%) (Auto) 0.6 % (0.0-2.0) Prothrombin Time 9.9 SEC (9.30-11.50) Prothromb Time International Ratio 0.9 (0.9-1.1) Activated Partial Thromboplast Time 29 SEC (23-33) Sodium Level 140 MMOL/L (136-145) Potassium Level 3.8 MMOL/L (3.5-5.1) Chloride Level 106 MMOL/L (98-107) Carbon Dioxide Level 24 MMOL/L (21-32) Anion Gap 10 mmol/L (5-15) Blood Urea Nitrogen 37 mg/dL (7-18) H Creatinine 1.4 MG/DL (0.55-1.30) H Estimat Glomerular Filtration Rate 37.2 mL/min (>60) Glucose Level 115 MG/DL (74-106) H Calcium Level 8.5 MG/DL (8.5-10.1) Total Bilirubin 0.3 MG/DL (0.2-1.0) Aspartate Amino Transf (AST/SGOT) 16 U/L (15-37) Alanine Aminotransferase (ALT/SGPT) 19 U/L (12-78) Alkaline Phosphatase 120 U/L (46-116) H Total Creatine Kinase 35 U/L (26-308) Creatine Kinase MB 0.6 NG/ML (0.0-3.6) Creatine Kinase MB Relative Index 1.7 Troponin I 0.000 ng/mL (0.000-0.056) 0.004 ng/mL (0.000-0.056) Pro-B-Type Natriuretic Peptide 3088 pg/mL (0-125) H Total Protein 7.9 G/DL (6.4-8.2) Albumin 3.1 G/DL (3.4-5.0) L Globulin 4.8 g/dL Albumin/Globulin Ratio 0.6 (1.0-2.7) L Urine Color Pale yellow Urine Appearance Slightly cloudy Urine pH 6 (4.5-8.0) Urine Specific [place] 1.010 (1.005-1.035) Urine Protein Negative (NEGATIVE) Urine Glucose (UA) Negative (NEGATIVE) Urine Ketones Negative (NEGATIVE) Urine Occult Blood 1+ (NEGATIVE) H Urine Nitrite Negative (NEGATIVE) Urine Bilirubin Negative (NEGATIVE) Urine Urobilinogen Normal MG/DL (0.0-1.0) Urine Leukocyte Esterase 3+ (NEGATIVE) H Urine RBC 2-4 /HPF (0 - 2) H Urine WBC Tntc /HPF (0 - 2) H Urine Squamous Epithelial Cells None /LPF (NONE/OCC) Urine Bacteria Many /HPF (NONE) H Height (Feet): 5 Height (Inches): 1.00 Weight (Pounds): 165 Medications Current Medications Medications (Trade) Dose Ordered Sig/[place] Route PRN Reason Start Time Stop Time Status Last Admin Dose Admin Acetaminophen (Tylenol) 650 mg Q4H PRN ORAL Fever 11/28/17 06:15 12/28/17 06:14 Albuterol/ Ipratropium (Albuterol/ Ipratropium) 3 ml Q4H PRN HHN Shortness of Breath 11/28/17 06:15 12/03/17 06:14 Atorvastatin Calcium (Lipitor) 40 mg BEDTIME ORAL 11/28/17 21:00 12/28/17 20:59 Carvedilol (Coreg) 6.25 mg EVERY 12 HOURS ORAL 11/28/17 10:30 12/28/17 10:29 11/28/17 10:54 Cefepime HCl 1 gm/ Dextrose 110 ml @ 220 mls/hr Q24H IVPB 11/28/17 09:00 12/05/17 08:59 11/28/17 09:14 Clopidogrel Bisulfate (Plavix) 75 mg DAILY ORAL 11/28/17 09:00 12/28/17 08:59 11/28/17 09:15 Dextrose (Dextrose 50%) STAT PRN IV Hypoglycemia 11/28/17 06:15 12/28/17 06:14 Digoxin (Lanoxin) 0.25 mg DAILY ORAL 11/28/17 09:00 12/28/17 08:59 11/28/17 09:17 Furosemide (Lasix) 40 mg EVERY 8 HOURS IV 11/28/17 14:00 12/28/17 13:59 Gabapentin (Neurontin) 300 mg DAILY ORAL 11/29/17 09:00 12/29/17 08:59 Heparin Sodium (Porcine) (Heparin 5000 units/ml) 5,000 units EVERY 12 HOURS SUBQ 11/28/17 09:00 12/28/17 08:59 11/28/17 09:14 Insulin Aspart (NovoLOG) BEFORE MEALS AND HS SUBQ 11/28/17 06:30 12/28/17 06:29 Ondansetron HCl (Zofran) 4 mg Q6H PRN IVP Nausea & Vomiting 11/28/17 06:15 12/28/17 06:14 Polyethylene Glycol (Miralax) 17 gm DAILYPRN PRN ORAL Constipation 11/28/17 06:15 12/28/17 06:14 Pregabalin (Lyrica) 50 mg BID ORAL 11/28/17 09:00 12/28/17 08:59 11/28/17 09:16 Temazepam (Restoril) 15 mg HSPRN PRN ORAL Insomnia 11/28/17 06:15 12/05/17 06:14 Assessment/Plan Status: stable Assessment/Plan 2D echo reviewed, severe systolic dysfunction and severe mitral regurgitation -Continue beta dayna with goal heart rate 60 to reduce regurgitant volume -MR appears function, recommend outpatient follow up to arrange mitraclip evaluation -Start losartan for afterload reduction for systolic heart failure -lasix to reduce filling pressures and reduce edema -Compression stockings -Salt restriction -check EKG -Pacemaker evaluation Jose Luis Suarez M.D. Nov 28, 2017 12:06
--- NOTE | 2017-11-28 12:39 | Diagnostic Imaging Report ---
Indication: Shortness of breath Technique: One view of the chest Comparison: 09/30/2017 Findings: The heart is enlarged. There is generalized interstitial congestion, less severe than that seen previously. There is evidence of pleural fluid on the left. There is a left chest biventricular AICD Impression: Cardiomegaly Bilateral interstitial edema Left-sided pleural effusion AICD
--- NOTE | 2017-11-28 12:43 | Consultation ---
History of Present Illness General Date patient seen: Nov 28, 2017 Chief Complaint: Dyspnea/Respdistress Present Illness HPI 72-year-old female with a history of high blood pressure and CHF, COPD, morbid obesity presented with chief complaint of shortness of breath and leg swelling t for last 3-4 days. Her symptoms are worse with exertion. No hx of fever or chills are reported. She is admitted to telemetry for further evaluation. Allergies: Coded Allergies: No Known Allergies (Unverified , 12/18/16) Medication History Scheduled Ascorbic Acid* (Ascorbic Acid*), 500 MG ORAL TWICE A DAY, (Reported) Aspirin Ec* (Aspirin Ec*), 81 MG ORAL DAILY, (Reported) Atorvastatin Calcium* (Atorvastatin Calcium*), 40 MG ORAL BEDTIME, (Reported) Carvedilol (Coreg), 6.25 MG ORAL EVERY 12 HOURS Carvedilol* (Carvedilol*), 3.125 MG ORAL EVERY 12 HOURS, (Reported) Clopidogrel Bisulfate* (Plavix*), 75 MG ORAL DAILY, (Reported) Clopidogrel* (Clopidogrel*), 75 MG ORAL DAILY, (Reported) Digoxin* (Digoxin*), Unknown Dose ORAL DAILY, (Reported) Esomeprazole Magnesium (Nexium), 40 MG ORAL DAILY, (Reported) Furosemide* (Lasix*), 40 MG ORAL DAILY, (Reported) Furosemide* (Lasix*), 40 MG ORAL DAILY Insulin Aspart (Novolog Flexpen), 0 UNITS SUBQ BEFORE MEALS AND HS Insulin Glargine (Lantus), 0 SUBQ BEDTIME, (Reported) Isosorbide Dinitrate* (Isordil*), 30 MG ORAL DAILY, (Reported) Lisinopril* (Lisinopril*), Unknown Dose ORAL DAILY, (Reported) Loratadine (Loratadine), 10 MG PO DAILY, (Reported) Multivitamins* (Multivitamins*), 1 TAB ORAL DAILY, (Reported) Polyethylene Glycol 3350* (Polyethylene Glycol 3350*), 17 GM ORAL DAILY, ( Reported) Pregabalin (Lyrica), 50 MG ORAL BID, (Reported) Spironolactone* (Aldactone*), 25 MG ORAL DAILY, (Reported) Sucralfate (Carafate), 1 GM ORAL FOUR TIMES A DAY Scheduled PRN Acetaminophen* (Tylenol Extra Strength*), 500 MG ORAL Q6H PRN for Mild Pain/ Temp > 100.5, (Reported) Dicyclomine Hcl* (Dicyclomine Hcl*), 10 MG PO QID PRN for Abdominal cramps Miscellaneous Medications Docusate Sodium* (Docusate Sodium*), 250 MG ORAL, (Reported) Gabapentin* (Gabapentin*), Unknown Dose ORAL, (Reported) Insulin Detemir (Levemir Flextouch), 100 UNIT SQ, (Reported) Simethicone (Mi-Acid), 80 MG PO, (Reported) Simethicone (Mi-Acid), 80 MG PO, (Reported) Patient History Healthcare decision maker Helson Resuscitation status Full Code Advanced Directive on File Past Medical/Surgical History Past Medical/Surgical History: (1) Right hemiparesis (2) HTN (hypertension) (3) Obesity (4) Diabetic nephropathy (5) CAD (coronary artery disease) (6) Cerebral vascular disease (7) EF 25% (8) COPD (chronic obstructive pulmonary disease) Review of Systems All Other Systems: negative except mentioned in HPI Physical Exam General Appearance: WD/WN, no apparent distress Lines, tubes and drains: peripheral HEENT: normocephalic, atraumatic Neck: non-tender, normal alignment Respiratory/Chest: chest wall non-tender, lungs clear Cardiovascular/Chest: normal peripheral pulses, normal rate Abdomen: normal bowel sounds Genitourinary/Rectal: normal genital exam Extremities: normal range of motion, moderate edema Skin Exam: normal pigmentation Last 24 Hour Vital Signs Date Time Temp Pulse Resp B/P (MAP) Pulse Ox O2 Delivery O2 Flow Rate FiO2 11/28/17 12:03 98.9 123 19 110/66 95 Room Air 98.9 11/28/17 12:00 82 11/28/17 10:54 87 123/66 11/28/17 09:17 87 11/28/17 08:00 86 11/28/17 08:00 97.8 84 19 110/65 95 Room Air 97.8 11/28/17 03:21 96.6 87 12 105/63 95 Room Air 96.6 11/28/17 02:45 83 11/28/17 02:20 97.5 82 18 119/50 94 Room Air 97.5 11/28/17 02:04 97.5 82 18 119/50 94 Room Air 97.5 11/28/17 01:33 82 18 130/62 95 Room Air 11/27/17 23:30 97.5 99 22 133/58 93 Room Air 97.5 11/27/17 23:30 99 20 Room Air 11/27/17 23:22 97.6 99 22 93 Room Air 97.5 Intake and Output 11/27/17 11/28/17 19:00 07:00 Output Total 1700 ml Balance -1700 ml Output Urine Total 1700 ml # Bowel Movements 1 Laboratory Tests Test 11/27/17 23:55 11/28/17 01:20 11/28/17 07:30 White Blood Count 11.4 K/UL (4.8-10.8) H Red Blood Count 4.48 M/UL (4.20-5.40) Hemoglobin 11.5 G/DL (12.0-16.0) L Hematocrit 36.7 % (37.0-47.0) L Mean Corpuscular Volume 82 FL (80-99) Mean Corpuscular Hemoglobin 25.7 PG (27.0-31.0) L Mean Corpuscular Hemoglobin Concent 31.4 G/DL (32.0-36.0) L Red Cell Distribution Width 14.7 % (11.6-14.8) Platelet Count 227 K/UL (150-450) Mean Platelet Volume 9.0 FL (6.5-10.1) Neutrophils (%) (Auto) 70.5 % (45.0-75.0) Lymphocytes (%) (Auto) 17.8 % (20.0-45.0) L Monocytes (%) (Auto) 8.3 % (1.0-10.0) Eosinophils (%) (Auto) 2.8 % (0.0-3.0) Basophils (%) (Auto) 0.6 % (0.0-2.0) Prothrombin Time 9.9 SEC (9.30-11.50) Prothromb Time International Ratio 0.9 (0.9-1.1) Activated Partial Thromboplast Time 29 SEC (23-33) Sodium Level 140 MMOL/L (136-145) Potassium Level 3.8 MMOL/L (3.5-5.1) Chloride Level 106 MMOL/L (98-107) Carbon Dioxide Level 24 MMOL/L (21-32) Anion Gap 10 mmol/L (5-15) Blood Urea Nitrogen 37 mg/dL (7-18) H Creatinine 1.4 MG/DL (0.55-1.30) H Estimat Glomerular Filtration Rate 37.2 mL/min (>60) Glucose Level 115 MG/DL (74-106) H Calcium Level 8.5 MG/DL (8.5-10.1) Total Bilirubin 0.3 MG/DL (0.2-1.0) Aspartate Amino Transf (AST/SGOT) 16 U/L (15-37) Alanine Aminotransferase (ALT/SGPT) 19 U/L (12-78) Alkaline Phosphatase 120 U/L (46-116) H Total Creatine Kinase 35 U/L (26-308) Creatine Kinase MB 0.6 NG/ML (0.0-3.6) Creatine Kinase MB Relative Index 1.7 Troponin I 0.000 ng/mL (0.000-0.056) 0.004 ng/mL (0.000-0.056) Pro-B-Type Natriuretic Peptide 3088 pg/mL (0-125) H Total Protein 7.9 G/DL (6.4-8.2) Albumin 3.1 G/DL (3.4-5.0) L Globulin 4.8 g/dL Albumin/Globulin Ratio 0.6 (1.0-2.7) L Urine Color Pale yellow Urine Appearance Slightly cloudy Urine pH 6 (4.5-8.0) Urine Specific [place] 1.010 (1.005-1.035) Urine Protein Negative (NEGATIVE) Urine Glucose (UA) Negative (NEGATIVE) Urine Ketones Negative (NEGATIVE) Urine Occult Blood 1+ (NEGATIVE) H Urine Nitrite Negative (NEGATIVE) Urine Bilirubin Negative (NEGATIVE) Urine Urobilinogen Normal MG/DL (0.0-1.0) Urine Leukocyte Esterase 3+ (NEGATIVE) H Urine RBC 2-4 /HPF (0 - 2) H Urine WBC Tntc /HPF (0 - 2) H Urine Squamous Epithelial Cells None /LPF (NONE/OCC) Urine Bacteria Many /HPF (NONE) H Height (Feet): 5 Height (Inches): 1.00 Weight (Pounds): 165 Medications Current Medications Medications (Trade) Dose Ordered Sig/[place] Route PRN Reason Start Time Stop Time Status Last Admin Dose Admin Acetaminophen (Tylenol) 650 mg Q4H PRN ORAL Fever 11/28/17 06:15 12/28/17 06:14 Albuterol/ Ipratropium (Albuterol/ Ipratropium) 3 ml Q4H PRN HHN Shortness of Breath 11/28/17 06:15 12/03/17 06:14 Atorvastatin Calcium (Lipitor) 40 mg BEDTIME ORAL 11/28/17 21:00 12/28/17 20:59 Carvedilol (Coreg) 6.25 mg EVERY 12 HOURS ORAL 11/28/17 10:30 12/28/17 10:29 11/28/17 10:54 Cefepime HCl 1 gm/ Dextrose 110 ml @ 220 mls/hr Q24H IVPB 11/28/17 09:00 12/05/17 08:59 11/28/17 09:14 Clopidogrel Bisulfate (Plavix) 75 mg DAILY ORAL 11/28/17 09:00 12/28/17 08:59 11/28/17 09:15 Dextrose (Dextrose 50%) STAT PRN IV Hypoglycemia 11/28/17 06:15 12/28/17 06:14 Digoxin (Lanoxin) 0.25 mg DAILY ORAL 11/28/17 09:00 12/28/17 08:59 11/28/17 09:17 Furosemide (Lasix) 40 mg EVERY 8 HOURS IV 11/28/17 14:00 12/28/17 13:59 Gabapentin (Neurontin) 300 mg DAILY ORAL 11/29/17 09:00 12/29/17 08:59 Heparin Sodium (Porcine) (Heparin 5000 units/ml) 5,000 units EVERY 12 HOURS SUBQ 11/28/17 09:00 12/28/17 08:59 11/28/17 09:14 Insulin Aspart (NovoLOG) BEFORE MEALS AND HS SUBQ 11/28/17 06:30 12/28/17 06:29 11/28/17 12:19 Losartan Potassium (Cozaar) 25 mg DAILY ORAL 11/29/17 09:00 12/29/17 08:59 Ondansetron HCl (Zofran) 4 mg Q6H PRN IVP Nausea & Vomiting 11/28/17 06:15 12/28/17 06:14 Polyethylene Glycol (Miralax) 17 gm DAILYPRN PRN ORAL Constipation 11/28/17 06:15 12/28/17 06:14 Pregabalin (Lyrica) 50 mg BID ORAL 11/28/17 09:00 12/28/17 08:59 11/28/17 09:16 Temazepam (Restoril) 15 mg HSPRN PRN ORAL Insomnia 11/28/17 06:15 12/05/17 06:14 Assessment/Plan Problem List: (1) Acute CHF ICD Codes: I50.9 - Heart failure, unspecified SNOMED: 24349668 Qualifiers: Qualified Codes: I50.9 - Heart failure, unspecified (2) Right hemiparesis ICD Codes: G81.91 - Hemiplegia, unspecified affecting right dominant side SNOMED: 008114460 (3) Cerebral vascular disease ICD Codes: I67.9 - Cerebrovascular disease, unspecified SNOMED: 38599331 (4) HTN (hypertension) ICD Codes: I10 - Essential (primary) hypertension SNOMED: 24258132 (5) Diabetic nephropathy ICD Codes: E11.21 - Type 2 diabetes mellitus with diabetic nephropathy SNOMED: 895829169 (6) COPD (chronic obstructive pulmonary disease) ICD Codes: J44.9 - Chronic obstructive pulmonary disease, unspecified SNOMED: 72783857 (7) EF 25% Assessment/Plan titrate fio2 to sat of 92% respiratory treatment. f/u cxr and bnp in a few days. echo diuretics adjust cardiac meds venous doppler of legs Ida Nolen MD Nov 28, 2017 12:43
--- NOTE | 2017-11-28 16:05 | History & Physical ---
History and Physical History & Physicial Dictated for Int Med-Dr Spear no. [id number]. Ash Li MD Nov 28, 2017 16:05
--- NOTE | 2017-11-28 18:56 | Cardiology Report ---
APPROVED REPORT EXAM: Two-dimensional and M-mode echocardiogram with Doppler and color Doppler. INDICATION LV FUNCTION M-Mode DIMENSIONS IVSd1.1 (0.7-1.1cm)Left Atrium (MM)4.6 (1.6-4.0cm) LVDd4.5 (3.5-5.6cm)Aortic Root3.1 (2.0-3.7cm) PWd1.5 (0.7-1.1cm)Aortic Cusp Exc.1.7 (1.5-2.0cm) IVSs1.1 cm LVDs3.3 (2.5-4.0cm) PWs2.1 cm Technically difficult study due to poor acoustical windows. Mild left ventricular enlargements . Global left ventricular hypokinesis however best motion i s seen in proximal posteriro wall ans proximal lateral [place] . Left ventricular ejection fraction estimated to be 25-30 %. Study quality precludes accurate assessment of regional wall motion. No evidence of left ventricular hypertrophy. No evidence of pericardial effusion. Mild left Left atrial enlargement. Right cardiac chamber sizes are within normal limits. Focal aortic valve sclerosis with adequate cusp excursion. Moderately Thickened mitral valve leaflets with normal excursion. Moderately Mitral annulus and aortic root calcification. Pulmonic valve not well visualized. Normal tricuspid valve structure. IVC at normal size with physiologic collapse. Pacemaker wire present in the right side chambers. A color flow and spectral Doppler study was performed and revealed: Mild aortic regurgitation. Moderate mitral regurgitation. Mitral diastolic velocities suggest reduced left ventricular relaxation c/w mild LV diastolic dysfunction (Grade I ). Moderate tricuspid regurgitation. Tricuspid systolic velocities suggests peak right ventricular systolic pressure of 45 mmHg,consistent with mild pulmonary hypertension. No Pulmonic regurgitation present.
--- NOTE | 2017-11-28 19:15 | History and Physical Report ---
DATE OF ADMISSION: 11/28/2017 CHIEF COMPLAINT: The patient is a 72-year-old female, who presents with chief complaint of shortness of breath and swelling of the legs. HISTORY OF PRESENT ILLNESS: The patient was admitted to [facility] in 09/2017. Please see history and physical and discharge summary dictated at that time. The patient presented to [facility] emergency room complaining of a three-day history of shortness of breath. The patient also noticed her legs have been more swollen than usual. The patient presented to [facility] emergency room. The patient was admitted for acute on chronic exacerbation of congestive heart failure. PAST MEDICAL HISTORY: Significant for 1. Chronic obstructive pulmonary disease. 2. Congestive heart failure. 3. History of dilated cardiomyopathy. 4. Diabetes type 2. 5. Hypertension. 6. History of cerebrovascular accident. 7. Right hemiparesis. 8. History of cervical cancer, status post total abdominal hysterectomy. 9. Iron deficiency anemia. 10. Complete left bundle-branch block, status post AICD placement. PAST SURGICAL HISTORY: Significant for 1. Total abdominal hysterectomy. 2. Appendectomy. 3. Automatic implantable cardioverter-defibrillator implanted in 11/2015. CURRENT MEDICATIONS: 1. Vitamin C 500 mg p.o. twice daily. 2. Enteric-coated aspirin 81 mg one tablet p.o. daily. 3. Atorvastatin 40 mg p.o. at bedtime. 4. Carvedilol 6.25 mg p.o. twice daily. 5. Clopidogrel 75 mg p.o. daily. 6. Bentyl 10 mg p.o. q.i.d. p.r.n. 7. Digoxin 0.25 mg p.o. daily. 8. Nexium 40 mg p.o. daily. 9. Lasix 40 mg p.o. daily. 10. Neurontin 100 mg p.o. 3 times daily. 11. NovoLog sliding scale. 12. Levemir 100 units subcutaneously at bedtime. 13. Isordil 30 mg p.o. daily. 14. Lisinopril 2.5 mg p.o. daily. 15. Claritin 10 mg p.o. daily. 16. Multivitamin p.o. daily. 17. Lyrica 50 mg p.o. twice daily. 18. Aldactone 25 mg p.o. daily. 19. Carafate 1 g p.o. four times daily. ALLERGIES: No known drug allergies. SOCIAL HISTORY: The patient is single and lives with her adult son. The patient denies tobacco or alcohol use. REVIEW OF SYSTEMS: CONSTITUTIONAL: The patient denies weight loss or weight gain. The patient denies fevers or chills. HEENT: The patient denies ear or throat pain. The patient denies headache. CARDIOVASCULAR: The patient denies palpitations or chest pain. CHEST: The patient denies wheeze or shortness of breath. The patient complains of shortness of breath as above. The patient denies wheezes. ABDOMEN: The patient denies nausea, vomiting, diarrhea, or constipation. GENITOURINARY: The patient denies dysuria or increased frequency of urination. NEUROMUSCULAR: The patient complains of leg swelling as above. The patient denies seizures or generalized weakness. PHYSICAL EXAMINATION: GENERAL: The patient is a well-developed, well-nourished female, in no apparent distress. VITAL SIGNS: Temperature 97.8 degrees, respirations 19, pulse 84 and blood pressure 110/65. HEENT: Eyes, pupils equal responsive to light and accommodation. Extraocular movements are intact. NECK: Supple without lymphadenopathy. CHEST: Few crackles in bilateral bases with scattered expiratory wheezes. Otherwise, clear to auscultation without wheezes or rales. CARDIOVASCULAR: Regular rhythm and rate. S1 and S2 normal without murmurs, rubs, or gallops. ABDOMEN: Soft, nontender, and nondistended. Positive bowel sounds. No evidence of hepatosplenomegaly. Currently, no rebound or guarding noted. EXTREMITIES: A 2+ pitting edema bilaterally without clubbing or cyanosis. RECTAL/GENITAL: Refused. NEUROLOGIC: Cranial nerves II through XII are grossly intact without focal deficits. Motor strength is 5/5 bilaterally. Deep tendon reflexes are 2+ plantar. LABORATORY AND DIAGNOSTIC DATA: WBC 11.4, hemoglobin 15.5, hematocrit 36.7 and platelets 227,000. Sodium 140, potassium 3.8, chloride 106, CO2 24, BUN 37, creatinine 1.4 and glucose 115. Troponin 0.0. BNP elevated at 3088. Chest x-ray was reported as cardiomegaly with bilateral interstitial edema consistent with congestive heart failure. ASSESSMENT: This is a 72-year-old female 1. Shortness of breath. 2. Edema of bilateral legs. 3. Acute on chronic congestive heart failure. 4. Chronic obstructive pulmonary disease. 5. Dilated cardiomyopathy. 6. Diabetes type 2. 7. Hypertension. 8. History of cerebrovascular accident. 9. Right hemiparesis. 10. History of cervical cancer. 11. Iron deficiency anemia. 12. Left bundle-branch block. TREATMENT: 1. Shortness of breath/congestive heart failure. Cardiology consultation has been obtained with Dr. Suarez. An echocardiogram is pending. The patient has been started empirically on intravenous Lasix. We will follow recommendation of Cardiology. 2. Chronic obstructive pulmonary disease. A Pulmonary consultation has been obtained with Dr. Nolen. We will follow recommendations of Pulmonary. 3. Dilated cardiomyopathy. 4. Diabetes type 2. Continue NovoLog and Levemir as above. 5. Hypertension. Continue carvedilol as above. 6. History of cerebrovascular accident/right hemiparesis. 7. History of cervical cancer status post total abdominal hysterectomy. 8. Iron deficiency anemia. 9. Left bundle-branch block. The patient is status post AICD placement. Ash Li M.D. DR: ALFREDO JOB#: [id number] CC:
[2017-11-28] MEDS: Atorvastatin 20mg tab ORAL SCH (20:47)
--- NOTE | 2017-11-28 23:50 | Consultation ---
History of Present Illness General Date patient seen: Nov 28, 2017 Chief Complaint: Dyspnea/Respdistress Present Illness HPI 72-year-old female, who presents with chief complaint of shortness of breath and swelling of the legs. The pt c/o low energy and sadness. She stated that she feels drowsy in am. the pt has no psychotic sxs. the pt has no si. Allergies: Coded Allergies: No Known Allergies (Unverified , 12/18/16) Medication History Scheduled Ascorbic Acid* (Ascorbic Acid*), 500 MG ORAL TWICE A DAY, (Reported) Aspirin Ec* (Aspirin Ec*), 81 MG ORAL DAILY, (Reported) Atorvastatin Calcium* (Atorvastatin Calcium*), 40 MG ORAL BEDTIME, (Reported) Carvedilol (Coreg), 6.25 MG ORAL EVERY 12 HOURS Carvedilol* (Carvedilol*), 3.125 MG ORAL EVERY 12 HOURS, (Reported) Clopidogrel Bisulfate* (Plavix*), 75 MG ORAL DAILY, (Reported) Clopidogrel* (Clopidogrel*), 75 MG ORAL DAILY, (Reported) Digoxin* (Digoxin*), Unknown Dose ORAL DAILY, (Reported) Esomeprazole Magnesium (Nexium), 40 MG ORAL DAILY, (Reported) Furosemide* (Lasix*), 40 MG ORAL DAILY, (Reported) Furosemide* (Lasix*), 40 MG ORAL DAILY Insulin Aspart (Novolog Flexpen), 0 UNITS SUBQ BEFORE MEALS AND HS Insulin Glargine (Lantus), 0 SUBQ BEDTIME, (Reported) Isosorbide Dinitrate* (Isordil*), 30 MG ORAL DAILY, (Reported) Lisinopril* (Lisinopril*), Unknown Dose ORAL DAILY, (Reported) Loratadine (Loratadine), 10 MG PO DAILY, (Reported) Multivitamins* (Multivitamins*), 1 TAB ORAL DAILY, (Reported) Polyethylene Glycol 3350* (Polyethylene Glycol 3350*), 17 GM ORAL DAILY, ( Reported) Pregabalin (Lyrica), 50 MG ORAL BID, (Reported) Spironolactone* (Aldactone*), 25 MG ORAL DAILY, (Reported) Sucralfate (Carafate), 1 GM ORAL FOUR TIMES A DAY Scheduled PRN Acetaminophen* (Tylenol Extra Strength*), 500 MG ORAL Q6H PRN for Mild Pain/ Temp > 100.5, (Reported) Dicyclomine Hcl* (Dicyclomine Hcl*), 10 MG PO QID PRN for Abdominal cramps Miscellaneous Medications Docusate Sodium* (Docusate Sodium*), 250 MG ORAL, (Reported) Gabapentin* (Gabapentin*), Unknown Dose ORAL, (Reported) Insulin Detemir (Levemir Flextouch), 100 UNIT SQ, (Reported) Simethicone (Mi-Acid), 80 MG PO, (Reported) Simethicone (Mi-Acid), 80 MG PO, (Reported) Patient History History Provided By: Patient, Medical Record, PMD Healthcare decision maker [place] Resuscitation status Full Code Advanced Directive on File Past Medical/Surgical History Past Medical/Surgical History: (1) Hemiparesis, right (2) CHF exacerbation (3) Intractable abdominal pain (4) Anemia (5) LBBB (left bundle branch block) (6) Generalized weakness (7) Dysphagia (8) Iron deficiency anemia (9) Epigastric pain (10) Hypoalbuminemia (11) Acute pancreatitis (12) Dehydration (13) Hyperkalemia (14) Hyperkalemia (15) Diabetic neuropathy (16) Diaphoresis (17) Hypoxemia (18) Respiratory distress (19) Gastritis (20) Hypercholesteremia (21) Hyperglycemia (22) Hypernatremia (23) Leukocytosis (24) Pancreatitis (25) Renal failure (26) Peripheral vascular disease (27) Epigastric abdominal pain (28) ATN (acute tubular necrosis) (29) UTI (urinary tract infection) (30) Bronchitis (31) Chest pain (32) Hypotension (33) Pneumonia (34) Acid reflux (35) Left upper quadrant pain (36) Hepatic steatosis (37) Steatosis of liver (38) High triglycerides (39) Sacral decubitus ulcer (40) Uncontrolled diabetes mellitus (41) Sigmoid thickening (42) Alkaline phosphatase elevation (43) E. coli UTI (44) Acute kidney injury (nontraumatic) (45) Acute renal failure (ARF) (46) Right adrenal mass (47) Left bundle branch block (LBBB) (48) Acute kidney injury (49) Acute encephalopathy (50) Elevated d-dimer (51) Abdominal pain (52) Acute CHF (53) Dyspnea (54) COPD (chronic obstructive pulmonary disease) (55) CAD (coronary artery disease) (56) Diabetic nephropathy (57) Obesity (58) HTN (hypertension) (59) Multiple thyroid nodules (60) Cerebral vascular disease (61) Right hemiparesis (62) EF 25% (63) Cardiomyopathy (64) Shortness of breath (65) Diabetes mellitus (66) Hypertension (67) Hemiplegia affecting right dominant side (68) Hypocalcemia Review of Systems Psychiatric: Reports: prior hx, anxiety, depressed feelings Physical Exam General Appearance: no apparent distress, alert Neurologic: oriented x 3, responsive, depressed affect Last 24 Hour Vital Signs Date Time Temp Pulse Resp B/P (MAP) Pulse Ox O2 Delivery O2 Flow Rate FiO2 11/28/17 20:48 90 117/62 11/28/17 20:00 88 11/28/17 20:00 99.0 90 20 117/62 94 Room Air 99.0 11/28/17 16:00 99.0 88 21 100/58 94 99.0 11/28/17 16:00 86 11/28/17 12:03 98.9 123 19 110/66 95 Room Air 98.9 11/28/17 12:00 82 11/28/17 10:54 87 123/66 11/28/17 09:17 87 11/28/17 08:00 86 11/28/17 08:00 97.8 84 19 110/65 95 Room Air 97.8 11/28/17 03:21 96.6 87 12 105/63 95 Room Air 96.6 11/28/17 02:45 83 11/28/17 02:20 97.5 82 18 119/50 94 Room Air 97.5 11/28/17 02:04 97.5 82 18 119/50 94 Room Air 97.5 11/28/17 01:33 82 18 130/62 95 Room Air Intake and Output 11/27/17 11/28/17 19:00 07:00 Output Total 1700 ml Balance -1700 ml Output Urine Total 1700 ml # Bowel Movements 1 Laboratory Tests Test 11/27/17 23:55 11/28/17 01:20 11/28/17 07:30 White Blood Count 11.4 K/UL (4.8-10.8) H Red Blood Count 4.48 M/UL (4.20-5.40) Hemoglobin 11.5 G/DL (12.0-16.0) L Hematocrit 36.7 % (37.0-47.0) L Mean Corpuscular Volume 82 FL (80-99) Mean Corpuscular Hemoglobin 25.7 PG (27.0-31.0) L Mean Corpuscular Hemoglobin Concent 31.4 G/DL (32.0-36.0) L Red Cell Distribution Width 14.7 % (11.6-14.8) Platelet Count 227 K/UL (150-450) Mean Platelet Volume 9.0 FL (6.5-10.1) Neutrophils (%) (Auto) 70.5 % (45.0-75.0) Lymphocytes (%) (Auto) 17.8 % (20.0-45.0) L Monocytes (%) (Auto) 8.3 % (1.0-10.0) Eosinophils (%) (Auto) 2.8 % (0.0-3.0) Basophils (%) (Auto) 0.6 % (0.0-2.0) Prothrombin Time 9.9 SEC (9.30-11.50) Prothromb Time International Ratio 0.9 (0.9-1.1) Activated Partial Thromboplast Time 29 SEC (23-33) Sodium Level 140 MMOL/L (136-145) Potassium Level 3.8 MMOL/L (3.5-5.1) Chloride Level 106 MMOL/L (98-107) Carbon Dioxide Level 24 MMOL/L (21-32) Anion Gap 10 mmol/L (5-15) Blood Urea Nitrogen 37 mg/dL (7-18) H Creatinine 1.4 MG/DL (0.55-1.30) H Estimat Glomerular Filtration Rate 37.2 mL/min (>60) Glucose Level 115 MG/DL (74-106) H Calcium Level 8.5 MG/DL (8.5-10.1) Total Bilirubin 0.3 MG/DL (0.2-1.0) Aspartate Amino Transf (AST/SGOT) 16 U/L (15-37) Alanine Aminotransferase (ALT/SGPT) 19 U/L (12-78) Alkaline Phosphatase 120 U/L (46-116) H Total Creatine Kinase 35 U/L (26-308) Creatine Kinase MB 0.6 NG/ML (0.0-3.6) Creatine Kinase MB Relative Index 1.7 Troponin I 0.000 ng/mL (0.000-0.056) 0.004 ng/mL (0.000-0.056) Pro-B-Type Natriuretic Peptide 3088 pg/mL (0-125) H Total Protein 7.9 G/DL (6.4-8.2) Albumin 3.1 G/DL (3.4-5.0) L Globulin 4.8 g/dL Albumin/Globulin Ratio 0.6 (1.0-2.7) L Urine Color Pale yellow Urine Appearance Slightly cloudy Urine pH 6 (4.5-8.0) Urine Specific [place] 1.010 (1.005-1.035) Urine Protein Negative (NEGATIVE) Urine Glucose (UA) Negative (NEGATIVE) Urine Ketones Negative (NEGATIVE) Urine Occult Blood 1+ (NEGATIVE) H Urine Nitrite Negative (NEGATIVE) Urine Bilirubin Negative (NEGATIVE) Urine Urobilinogen Normal MG/DL (0.0-1.0) Urine Leukocyte Esterase 3+ (NEGATIVE) H Urine RBC 2-4 /HPF (0 - 2) H Urine WBC Tntc /HPF (0 - 2) H Urine Squamous Epithelial Cells None /LPF (NONE/OCC) Urine Bacteria Many /HPF (NONE) H Height (Feet): 5 Height (Inches): 1.00 Weight (Pounds): 165 Medications Current Medications Medications (Trade) Dose Ordered Sig/[place] Route PRN Reason Start Time Stop Time Status Last Admin Dose Admin Acetaminophen (Tylenol) 650 mg Q4H PRN ORAL Fever 11/28/17 06:15 12/28/17 06:14 Albuterol/ Ipratropium (Albuterol/ Ipratropium) 3 ml Q4H PRN HHN Shortness of Breath 11/28/17 06:15 12/03/17 06:14 Atorvastatin Calcium (Lipitor) 40 mg BEDTIME ORAL 11/28/17 21:00 12/28/17 20:59 11/28/17 20:47 Carvedilol (Coreg) 6.25 mg EVERY 12 HOURS ORAL 11/28/17 10:30 12/28/17 10:29 11/28/17 20:48 Cefepime HCl 1 gm/ Dextrose 110 ml @ 220 mls/hr Q24H IVPB 11/28/17 09:00 12/05/17 08:59 11/28/17 09:14 Clopidogrel Bisulfate (Plavix) 75 mg DAILY ORAL 11/28/17 09:00 12/28/17 08:59 11/28/17 09:15 Dextrose (Dextrose 50%) STAT PRN IV Hypoglycemia 11/28/17 06:15 12/28/17 06:14 Digoxin (Lanoxin) 0.25 mg DAILY ORAL 11/28/17 09:00 12/28/17 08:59 11/28/17 09:17 Furosemide (Lasix) 40 mg EVERY 8 HOURS IV 11/28/17 14:00 12/28/17 13:59 11/28/17 21:55 Gabapentin (Neurontin) 300 mg DAILY ORAL 11/29/17 09:00 12/29/17 08:59 Heparin Sodium (Porcine) (Heparin 5000 units/ml) 5,000 units EVERY 12 HOURS SUBQ 11/28/17 09:00 12/28/17 08:59 11/28/17 20:49 Insulin Aspart (NovoLOG) BEFORE MEALS AND HS SUBQ 11/28/17 06:30 12/28/17 06:29 11/28/17 20:50 Losartan Potassium (Cozaar) 25 mg DAILY ORAL 11/29/17 09:00 12/29/17 08:59 Ondansetron HCl (Zofran) 4 mg Q6H PRN IVP Nausea & Vomiting 11/28/17 06:15 12/28/17 06:14 Polyethylene Glycol (Miralax) 17 gm DAILYPRN PRN ORAL Constipation 11/28/17 06:15 12/28/17 06:14 Pregabalin (Lyrica) 50 mg BID ORAL 11/28/17 09:00 12/28/17 08:59 11/28/17 17:23 Temazepam (Restoril) 15 mg HSPRN PRN ORAL Insomnia 11/28/17 06:15 12/05/17 06:14 Assessment/Plan Assessment/Plan MDD cognitive impairment -low dose of ssri Teresa Douglas M.D. Nov 28, 2017 23:50
[2017-11-29] VITALS: BP 110/66
[2017-11-29 04:00] VITALS: BP 135/64
[2017-11-29] MEDS: NovoLOG Insulin Flexpen SUBQ SCH ×4 (06:10→20:58)
[2017-11-29 07:04] LABS: BASOPHILS % (AUTO) 0.6 % (0.0-2.0); EOSINOPHILS % (AUTO) 2.9 % (0.0-3.0); HEMATOCRIT 38.5 % (37.0-47.0); HEMOGLOBIN 12.2 G/DL (12.0-16.0); LYMPHOCYTES % (AUTO) 18.6 % (20.0-45.0); MEAN CORPUSCULAR VOLUME 83 FL (80-99); MONOCYTES % (AUTO) 8.5 % (1.0-10.0); NEUTROPHILS % (AUTO) 69.3 % (45.0-75.0); PLATELET COUNT 240 K/UL (150-450); RED BLOOD COUNT 4.63 M/UL (4.20-5.40); RED CELL DISTRIBUTION WIDTH 14.8 % (11.6-14.8); WHITE BLOOD COUNT 10.9 K/UL (4.8-10.8)
--- NOTE | 2017-11-29 07:09 | Cardiology Report ---
APPROVED REPORT EKG Measurement Heart [id number] atrial sensed ventricular paced
[2017-11-29 07:14] LABS: ANION GAP 8 mmol/L (5-15); BLOOD UREA NITROGEN 34 mg/dL (7-18); CALCIUM 8.9 MG/DL (8.5-10.1); CARBON DIOXIDE 29 MMOL/L (21-32); CHLORIDE 104 MMOL/L (98-107); CREATININE 1.3 MG/DL (0.55-1.30); POTASSIUM 3.6 MMOL/L (3.5-5.1); SODIUM 141 MMOL/L (136-145)
[2017-11-29 08:00] VITALS: BP 118/69
[2017-11-29] MEDS: Losartan 25mg tab ORAL SCH (08:33)
[2017-11-29] MEDS: Cefepime HCl 1 GM in D5W 110 ML IVPB SCH (08:33)
[2017-11-29] MEDS: Carvedilol 6.25mg Tab ORAL SCH ×2 (08:34→20:59)
[2017-11-29] MEDS: Lyrica 50mg cap ORAL SCH ×2 (08:35→17:25)
[2017-11-29] MEDS: Heparin 5000 units/ml inj SUBQ SCH ×2 (08:37→20:58)
--- NOTE | 2017-11-29 10:01 | Diagnostic Imaging Report ---
Indication: Cough Technique: One view of the chest Comparison: 11/27/2017 Findings: Less optimal inspiration. Despite this, the interstitium appears less congested. Previously demonstrated left pleural effusion is not evident There is a left chest biventricular AICD again demonstrated. Impression: Improving interstitial congestion, over 2 days
--- NOTE | 2017-11-29 11:00 | Internal Med Progress Note ---
Subjective Date of Service: Nov 29, 2017 Physician Name Ash Li Attending Physician Brendan Wright MD Current Medications Medications (Trade) Dose Ordered Sig/[place] Route PRN Reason Start Time Stop Time Status Last Admin Dose Admin Acetaminophen (Tylenol) 650 mg Q4H PRN ORAL Fever 11/28/17 06:15 12/28/17 06:14 Albuterol/ Ipratropium (Albuterol/ Ipratropium) 3 ml Q4H PRN HHN Shortness of Breath 11/28/17 06:15 12/03/17 06:14 Atorvastatin Calcium (Lipitor) 40 mg BEDTIME ORAL 11/28/17 21:00 12/28/17 20:59 11/28/17 20:47 Carvedilol (Coreg) 6.25 mg EVERY 12 HOURS ORAL 11/28/17 10:30 12/28/17 10:29 11/29/17 08:34 Cefepime HCl 1 gm/ Dextrose 110 ml @ 220 mls/hr Q24H IVPB 11/28/17 09:00 12/05/17 08:59 11/29/17 08:33 Clopidogrel Bisulfate (Plavix) 75 mg DAILY ORAL 11/28/17 09:00 12/28/17 08:59 11/29/17 08:35 Dextrose (Dextrose 50%) STAT PRN IV Hypoglycemia 11/28/17 06:15 12/28/17 06:14 Digoxin (Lanoxin) 0.25 mg DAILY ORAL 11/28/17 09:00 12/28/17 08:59 11/29/17 08:36 Furosemide (Lasix) 40 mg EVERY 8 HOURS IV 11/28/17 14:00 12/28/17 13:59 11/29/17 06:09 Gabapentin (Neurontin) 300 mg DAILY ORAL 11/29/17 09:00 12/29/17 08:59 11/29/17 08:35 Heparin Sodium (Porcine) (Heparin 5000 units/ml) 5,000 units EVERY 12 HOURS SUBQ 11/28/17 09:00 12/28/17 08:59 11/29/17 08:37 Insulin Aspart (NovoLOG) BEFORE MEALS AND HS SUBQ 11/28/17 06:30 12/28/17 06:29 11/29/17 06:10 Losartan Potassium (Cozaar) 25 mg DAILY ORAL 11/29/17 09:00 12/29/17 08:59 11/29/17 08:33 Ondansetron HCl (Zofran) 4 mg Q6H PRN IVP Nausea & Vomiting 11/28/17 06:15 12/28/17 06:14 Polyethylene Glycol (Miralax) 17 gm DAILYPRN PRN ORAL Constipation 11/28/17 06:15 12/28/17 06:14 Pregabalin (Lyrica) 50 mg BID ORAL 11/28/17 09:00 12/28/17 08:59 11/29/17 08:35 Temazepam (Restoril) 15 mg HSPRN PRN ORAL Insomnia 11/28/17 06:15 12/05/17 06:14 Allergies: Coded Allergies: No Known Allergies (Unverified , 12/18/16) ROS Limited/Unobtainable: No Constitutional: Reports: no symptoms HEENT: Reports: no symptoms Cardiovascular: Reports: no symptoms Respiratory: Reports: shortness of breath Gastrointestinal/Abdominal: Reports: no symptoms Genitourinary: Reports: no symptoms 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: Reports: no symptoms Subjective 72 YO F admitted with shortness of breath and edema. Now acute on chronic congestive heart failure. Cover for Int Med-Dr Wright. Objective Last Vital Signs Date Time Temp Pulse Resp B/P (MAP) Pulse Ox O2 Delivery O2 Flow Rate FiO2 11/29/17 08:36 76 11/29/17 08:34 118/69 11/29/17 08:00 98.0 18 76 Room Air 98.0 General Appearance: WD/WN, alert, mild distress EENT: PERRL/EOMI, normal ENT inspection Neck: non-tender, normal alignment, supple, normal inspection Cardiovascular: normal peripheral pulses, normal rate, regular rhythm, no gallop/murmur, no JVD Respiratory/Chest: chest wall non-tender, no accessory muscle use, crackles/ rales, rhonchi - bilaterally, expiratory wheezing Abdomen: normal bowel sounds, non tender, soft, no organomegaly, no mass Extremities: normal range of motion, normal inspection Edema: mild edema 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: 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 specialist 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, no motor/sensory deficits Skin: normal pigmentation, warm/dry Laboratory Tests Test 11/29/17 06:55 White Blood Count 10.9 K/UL (4.8-10.8) H Red Blood Count 4.63 M/UL (4.20-5.40) Hemoglobin 12.2 G/DL (12.0-16.0) Hematocrit 38.5 % (37.0-47.0) Mean Corpuscular Volume 83 FL (80-99) Mean Corpuscular Hemoglobin 26.4 PG (27.0-31.0) L Mean Corpuscular Hemoglobin Concent 31.7 G/DL (32.0-36.0) L Red Cell Distribution Width 14.8 % (11.6-14.8) Platelet Count 240 K/UL (150-450) Mean Platelet Volume 9.2 FL (6.5-10.1) Neutrophils (%) (Auto) 69.3 % (45.0-75.0) Lymphocytes (%) (Auto) 18.6 % (20.0-45.0) L Monocytes (%) (Auto) 8.5 % (1.0-10.0) Eosinophils (%) (Auto) 2.9 % (0.0-3.0) Basophils (%) (Auto) 0.6 % (0.0-2.0) Sodium Level 141 MMOL/L (136-145) Potassium Level 3.6 MMOL/L (3.5-5.1) Chloride Level 104 MMOL/L (98-107) Carbon Dioxide Level 29 MMOL/L (21-32) Anion Gap 8 mmol/L (5-15) Blood Urea Nitrogen 34 mg/dL (7-18) H Creatinine 1.3 MG/DL (0.55-1.30) Estimat Glomerular Filtration Rate 40.5 mL/min (>60) Glucose Level 154 MG/DL (74-106) H Calcium Level 8.9 MG/DL (8.5-10.1) Troponin I 0.000 ng/mL (0.000-0.056) Pro-B-Type Natriuretic Peptide 1908 pg/mL (0-125) H Microbiology Date/Time Source Procedure Growth Status 11/28/17 01:20 Urine,Clean Catch Urine Culture - Preliminary Gram Negative Bacillus 1 Resulted Intake and Output 11/28/17 11/29/17 19:00 07:00 Intake Total 480 ml Output Total 1200 ml Balance -720 ml Intake Oral 480 ml Output Urine Total 1200 ml # Voids 2 # Bowel Movements 1 Assessment/Plan Problem List: (1) COPD (chronic obstructive pulmonary disease) Assessment & Plan: See pulmonary note. (2) Acute CHF Assessment & Plan: LVEF=30%. See cardiology recs. (3) Shortness of breath (4) Hypertension Assessment & Plan: Continue cozaar and coreg per cardiology (5) Diabetes mellitus Assessment & Plan: Continue novolog sliding scale. (6) Hemiplegia affecting right dominant side (7) Cerebral vascular disease Status: not improved Ash Li MD Nov 29, 2017 11:00
--- NOTE | 2017-11-29 11:52 | Pulmonology Progress Note ---
Assessment/Plan Problems: (1) Acute CHF (2) Right hemiparesis (3) Cerebral vascular disease (4) HTN (hypertension) (5) Diabetic nephropathy (6) COPD (chronic obstructive pulmonary disease) (7) EF 25% Assessment/Plan improving continue diuretics check electrolytes echo reviewed cardio note reviewed symptomatic treatment Subjective ROS Limited/Unobtainable: No Constitutional: Reports: no symptoms HEENT: Repors: no symptoms Respiratory: Reports: no symptoms Cardiovascular: Reports: no symptoms Allergies: Coded Allergies: No Known Allergies (Unverified , 12/18/16) Objective Last 24 Hour Vital Signs Date Time Temp Pulse Resp B/P (MAP) Pulse Ox O2 Delivery O2 Flow Rate FiO2 11/29/17 08:36 76 11/29/17 08:34 76 118/69 11/29/17 08:33 118/69 11/29/17 08:00 80 11/29/17 08:00 98.0 76 18 118/69 76 Room Air 98.0 11/29/17 04:00 75 11/29/17 04:00 98.0 77 20 135/64 95 Room Air 98.0 11/29/17 00:00 98.0 94 20 110/66 95 Room Air 98.0 11/29/17 00:00 83 11/28/17 20:48 90 117/62 11/28/17 20:00 88 11/28/17 20:00 99.0 90 20 117/62 94 Room Air 99.0 11/28/17 16:00 99.0 88 21 100/58 94 99.0 11/28/17 16:00 86 11/28/17 12:03 98.9 123 19 110/66 95 Room Air 98.9 11/28/17 12:00 82 Intake and Output 11/28/17 11/29/17 19:00 07:00 Intake Total 480 ml Output Total 1200 ml Balance -720 ml Intake Oral 480 ml Output Urine Total 1200 ml # Voids 2 # Bowel Movements 1 General Appearance: WD/WN, no acute distress HEENT: normocephalic Respiratory/Chest: chest wall non-tender, lungs clear Breasts: no masses Cardiovascular: normal peripheral pulses Abdomen: normal bowel sounds, soft, non tender Genitourinary: normal external genitalia Extremities: no cyanosis Skin: no rash 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 Microbiology Date/Time Source Procedure Growth Status 11/28/17 01:20 Urine,Clean Catch Urine Culture - Preliminary Gram Negative Bacillus 1 Resulted Laboratory Tests 11/29/17 06:55: White Blood Count 10.9H, Red Blood Count 4.63, Hemoglobin 12.2, Hematocrit 38.5 , Mean Corpuscular Volume 83, Mean Corpuscular Hemoglobin 26.4L, Mean Corpuscular Hemoglobin Concent 31.7L, Red Cell Distribution Width 14.8, Platelet Count 240, Mean Platelet Volume 9.2, Neutrophils (%) (Auto) 69.3, Lymphocytes (%) (Auto) 18.6L, Monocytes (%) (Auto) 8.5, Eosinophils (%) (Auto) 2.9, Basophils (%) (Auto) 0.6, Sodium Level 141, Potassium Level 3.6, Chloride Level 104, Carbon Dioxide Level 29, Anion Gap 8, Blood Urea Nitrogen 34H, Creatinine 1.3, Estimat Glomerular Filtration Rate 40.5, Glucose Level 154H, Calcium Level 8.9, Troponin I 0.000, Pro-B-Type Natriuretic Peptide 1908H Current Medications Medications (Trade) Dose Ordered Sig/[place] Route PRN Reason Start Time Stop Time Status Last Admin Dose Admin Acetaminophen (Tylenol) 650 mg Q4H PRN ORAL Fever 11/28/17 06:15 12/28/17 06:14 Albuterol/ Ipratropium (Albuterol/ Ipratropium) 3 ml Q4H PRN HHN Shortness of Breath 11/28/17 06:15 12/03/17 06:14 Atorvastatin Calcium (Lipitor) 40 mg BEDTIME ORAL 11/28/17 21:00 12/28/17 20:59 11/28/17 20:47 Carvedilol (Coreg) 6.25 mg EVERY 12 HOURS ORAL 11/28/17 10:30 12/28/17 10:29 11/29/17 08:34 Cefepime HCl 1 gm/ Dextrose 110 ml @ 220 mls/hr Q24H IVPB 11/28/17 09:00 12/05/17 08:59 11/29/17 08:33 Clopidogrel Bisulfate (Plavix) 75 mg DAILY ORAL 11/28/17 09:00 12/28/17 08:59 11/29/17 08:35 Dextrose (Dextrose 50%) STAT PRN IV Hypoglycemia 11/28/17 06:15 12/28/17 06:14 Digoxin (Lanoxin) 0.25 mg DAILY ORAL 11/28/17 09:00 12/28/17 08:59 11/29/17 08:36 Furosemide (Lasix) 40 mg EVERY 8 HOURS IV 11/28/17 14:00 12/28/17 13:59 11/29/17 06:09 Gabapentin (Neurontin) 300 mg DAILY ORAL 11/29/17 09:00 12/29/17 08:59 11/29/17 08:35 Heparin Sodium (Porcine) (Heparin 5000 units/ml) 5,000 units EVERY 12 HOURS SUBQ 11/28/17 09:00 12/28/17 08:59 11/29/17 08:37 Insulin Aspart (NovoLOG) BEFORE MEALS AND HS SUBQ 11/28/17 06:30 12/28/17 06:29 11/29/17 06:10 Losartan Potassium (Cozaar) 25 mg DAILY ORAL 11/29/17 09:00 12/29/17 08:59 11/29/17 08:33 Ondansetron HCl (Zofran) 4 mg Q6H PRN IVP Nausea & Vomiting 11/28/17 06:15 12/28/17 06:14 Polyethylene Glycol (Miralax) 17 gm DAILYPRN PRN ORAL Constipation 11/28/17 06:15 12/28/17 06:14 Pregabalin (Lyrica) 50 mg BID ORAL 11/28/17 09:00 12/28/17 08:59 11/29/17 08:35 Temazepam (Restoril) 15 mg HSPRN PRN ORAL Insomnia 11/28/17 06:15 12/05/17 06:14 Ida Nolen MD Nov 29, 2017 11:52
[2017-11-29 12:00] VITALS: BP 101/58
--- NOTE | 2017-11-29 12:50 | General Progress Note ---
Assessment/Plan Assessment/Plan MDD cognitive impairment -low dose of ssri Subjective Date patient seen: Nov 29, 2017 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: Reports: anxiety, depressed, emotional problems Allergies: Coded Allergies: No Known Allergies (Unverified , 12/18/16) Objective Last 24 Hour Vital Signs Date Time Temp Pulse Resp B/P (MAP) Pulse Ox O2 Delivery O2 Flow Rate FiO2 11/29/17 08:36 76 11/29/17 08:34 76 118/69 11/29/17 08:33 118/69 11/29/17 08:00 80 11/29/17 08:00 98.0 76 18 118/69 76 Room Air 98.0 11/29/17 04:00 75 11/29/17 04:00 98.0 77 20 135/64 95 Room Air 98.0 11/29/17 00:00 98.0 94 20 110/66 95 Room Air 98.0 11/29/17 00:00 83 11/28/17 20:48 90 117/62 11/28/17 20:00 88 11/28/17 20:00 99.0 90 20 117/62 94 Room Air 99.0 11/28/17 16:00 99.0 88 21 100/58 94 99.0 11/28/17 16:00 86 Intake and Output 11/28/17 11/29/17 19:00 07:00 Intake Total 480 ml Output Total 1200 ml Balance -720 ml Intake Oral 480 ml Output Urine Total 1200 ml # Voids 2 # Bowel Movements 1 Laboratory Tests 11/29/17 06:55: White Blood Count 10.9H, Red Blood Count 4.63, Hemoglobin 12.2, Hematocrit 38.5 , Mean Corpuscular Volume 83, Mean Corpuscular Hemoglobin 26.4L, Mean Corpuscular Hemoglobin Concent 31.7L, Red Cell Distribution Width 14.8, Platelet Count 240, Mean Platelet Volume 9.2, Neutrophils (%) (Auto) 69.3, Lymphocytes (%) (Auto) 18.6L, Monocytes (%) (Auto) 8.5, Eosinophils (%) (Auto) 2.9, Basophils (%) (Auto) 0.6, Sodium Level 141, Potassium Level 3.6, Chloride Level 104, Carbon Dioxide Level 29, Anion Gap 8, Blood Urea Nitrogen 34H, Creatinine 1.3, Estimat Glomerular Filtration Rate 40.5, Glucose Level 154H, Calcium Level 8.9, Troponin I 0.000, Pro-B-Type Natriuretic Peptide 1908H Height (Feet): 5 Height (Inches): 1.00 Weight (Pounds): 176 General Appearance: no apparent distress, alert Neurologic: oriented x 3, responsive, depressed affect Teresa Douglas M.D. Nov 29, 2017 12:50
--- NOTE | 2017-11-29 14:15 | Cardiology Progress Note ---
Assessment/Plan Status: doing well, stable Assessment/Plan 2D echo reviewed, severe systolic dysfunction and severe mitral regurgitation -Continue beta dayna with goal heart rate 60 to reduce regurgitant volume -MR appears functional, recommend outpatient follow up to arrange mitraclip evaluation -Continue losartan for afterload reduction for systolic heart failure -lasix to reduce filling pressures and reduce edema -> CXR shows interval improvement, -> transition to PO lasix EKG with A sensed V paced - normally functioning Subjective Cardiovascular: Reports: no symptoms Respiratory: Reports: no symptoms Gastrointestinal/Abdominal: Reports: no symptoms Genitourinary: Reports: no symptoms Subjective CXR shows interval improvement in congestion. Vitals stable, no chest pain, breathing unlabored Objective Last 24 Hour Vital Signs Date Time Temp Pulse Resp B/P (MAP) Pulse Ox O2 Delivery O2 Flow Rate FiO2 11/29/17 12:00 97.6 96 18 101/58 71 Room Air 97.6 71 11/29/17 12:00 70 11/29/17 08:36 76 11/29/17 08:34 76 118/69 11/29/17 08:33 118/69 11/29/17 08:00 80 11/29/17 08:00 98.0 76 18 118/69 76 Room Air 98.0 11/29/17 04:00 75 11/29/17 04:00 98.0 77 20 135/64 95 Room Air 98.0 11/29/17 00:00 98.0 94 20 110/66 95 Room Air 98.0 11/29/17 00:00 83 11/28/17 20:48 90 117/62 11/28/17 20:00 88 11/28/17 20:00 99.0 90 20 117/62 94 Room Air 99.0 11/28/17 16:00 99.0 88 21 100/58 94 99.0 11/28/17 16:00 86 General Appearance: no apparent distress EENT: PERRL/EOMI Neck: non-tender Rhythm: other Cardiovascular: normal peripheral pulses Respiratory/Chest: chest wall non-tender Abdomen: normal bowel sounds Extremities: normal range of motion 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 Intake and Output 11/28/17 11/29/17 19:00 07:00 Intake Total 480 ml Output Total 1200 ml Balance -720 ml Intake Oral 480 ml Output Urine Total 1200 ml # Voids 2 # Bowel Movements 1 Laboratory Tests Test 11/29/17 06:55 White Blood Count 10.9 K/UL (4.8-10.8) H Red Blood Count 4.63 M/UL (4.20-5.40) Hemoglobin 12.2 G/DL (12.0-16.0) Hematocrit 38.5 % (37.0-47.0) Mean Corpuscular Volume 83 FL (80-99) Mean Corpuscular Hemoglobin 26.4 PG (27.0-31.0) L Mean Corpuscular Hemoglobin Concent 31.7 G/DL (32.0-36.0) L Red Cell Distribution Width 14.8 % (11.6-14.8) Platelet Count 240 K/UL (150-450) Mean Platelet Volume 9.2 FL (6.5-10.1) Neutrophils (%) (Auto) 69.3 % (45.0-75.0) Lymphocytes (%) (Auto) 18.6 % (20.0-45.0) L Monocytes (%) (Auto) 8.5 % (1.0-10.0) Eosinophils (%) (Auto) 2.9 % (0.0-3.0) Basophils (%) (Auto) 0.6 % (0.0-2.0) Sodium Level 141 MMOL/L (136-145) Potassium Level 3.6 MMOL/L (3.5-5.1) Chloride Level 104 MMOL/L (98-107) Carbon Dioxide Level 29 MMOL/L (21-32) Anion Gap 8 mmol/L (5-15) Blood Urea Nitrogen 34 mg/dL (7-18) H Creatinine 1.3 MG/DL (0.55-1.30) Estimat Glomerular Filtration Rate 40.5 mL/min (>60) Glucose Level 154 MG/DL (74-106) H Calcium Level 8.9 MG/DL (8.5-10.1) Troponin I 0.000 ng/mL (0.000-0.056) Pro-B-Type Natriuretic Peptide 1908 pg/mL (0-125) H Microbiology Date/Time Source Procedure Growth Status 11/28/17 01:20 Urine,Clean Catch Urine Culture - Preliminary Gram Negative Bacillus 1 Resulted Jose Luis Suarez M.D. Nov 29, 2017 14:15
--- NOTE | 2017-11-29 14:45 | Consultation ---
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, COPD , DM2, appendectomy, HTN, morbid obesity, systolic heart failure, CVA w/ R hemiparesis, cervical CA s/p KENA, iron def anemia, valvular heart disease presents to ED on 11/27 with worsening LE edema and SOB/OCHOA for the last 3-4 days No f/c Echo showed severe systolic dysfunction and severe MR Afebrile leukocytosis improving pyuria Allergies: Coded Allergies: No Known Allergies (Unverified , 12/18/16) Medication History Scheduled Ascorbic Acid* (Ascorbic Acid*), 500 MG ORAL TWICE A DAY, (Reported) Aspirin Ec* (Aspirin Ec*), 81 MG ORAL DAILY, (Reported) Atorvastatin Calcium* (Atorvastatin Calcium*), 40 MG ORAL BEDTIME, (Reported) Carvedilol (Coreg), 6.25 MG ORAL EVERY 12 HOURS Carvedilol* (Carvedilol*), 3.125 MG ORAL EVERY 12 HOURS, (Reported) Clopidogrel Bisulfate* (Plavix*), 75 MG ORAL DAILY, (Reported) Clopidogrel* (Clopidogrel*), 75 MG ORAL DAILY, (Reported) Digoxin* (Digoxin*), Unknown Dose ORAL DAILY, (Reported) Esomeprazole Magnesium (Nexium), 40 MG ORAL DAILY, (Reported) Furosemide* (Lasix*), 40 MG ORAL DAILY, (Reported) Furosemide* (Lasix*), 40 MG ORAL DAILY Insulin Aspart (Novolog Flexpen), 0 UNITS SUBQ BEFORE MEALS AND HS Insulin Glargine (Lantus), 0 SUBQ BEDTIME, (Reported) Isosorbide Dinitrate* (Isordil*), 30 MG ORAL DAILY, (Reported) Lisinopril* (Lisinopril*), Unknown Dose ORAL DAILY, (Reported) Loratadine (Loratadine), 10 MG PO DAILY, (Reported) Multivitamins* (Multivitamins*), 1 TAB ORAL DAILY, (Reported) Polyethylene Glycol 3350* (Polyethylene Glycol 3350*), 17 GM ORAL DAILY, ( Reported) Pregabalin (Lyrica), 50 MG ORAL BID, (Reported) Spironolactone* (Aldactone*), 25 MG ORAL DAILY, (Reported) Sucralfate (Carafate), 1 GM ORAL FOUR TIMES A DAY Scheduled PRN Acetaminophen* (Tylenol Extra Strength*), 500 MG ORAL Q6H PRN for Mild Pain/ Temp > 100.5, (Reported) Dicyclomine Hcl* (Dicyclomine Hcl*), 10 MG PO QID PRN for Abdominal cramps Miscellaneous Medications Docusate Sodium* (Docusate Sodium*), 250 MG ORAL, (Reported) Gabapentin* (Gabapentin*), Unknown Dose ORAL, (Reported) Insulin Detemir (Levemir Flextouch), 100 UNIT SQ, (Reported) Simethicone (Mi-Acid), 80 MG PO, (Reported) Simethicone (Mi-Acid), 80 MG PO, (Reported) Patient History Healthcare decision maker H[place] Resuscitation status Full Code Advanced Directive on File Patient History Narrative PMhx: as above Shx: The patient is single and lives with her adult son. The patient denies tobacco or alcohol use. Fhx: non contributory Review of Systems All Other Systems: negative except mentioned in HPI Physical Exam Physical Exam Narrative GENERAL: The patient is a well-developed, well-nourished female, in no apparent distress. HEENT: Eyes, pupils equal responsive to light and accommodation. Extraocular movements are intact. NECK: Supple without lymphadenopathy. CHEST: Few crackles in bilateral bases with scattered expiratory wheezes. Otherwise, clear to auscultation without wheezes or rales. CARDIOVASCULAR: Regular rhythm and rate. S1 and S2 normal without murmurs, rubs, or gallops. ABDOMEN: Soft, nontender, and nondistended. Positive bowel sounds. No evidence of hepatosplenomegaly. Currently, no rebound or guarding noted. EXTREMITIES: A 2+ pitting edema bilaterally without clubbing or cyanosis. NEUROLOGIC: Cranial nerves II through XII are grossly intact without focal deficits. Motor strength is 5/5 bilaterally. Deep tendon reflexes are 2+ plantar. Last 24 Hour Vital Signs Date Time Temp Pulse Resp B/P (MAP) Pulse Ox O2 Delivery O2 Flow Rate FiO2 11/29/17 12:00 97.6 96 18 101/58 71 Room Air 97.6 71 11/29/17 12:00 70 11/29/17 08:36 76 11/29/17 08:34 76 118/69 11/29/17 08:33 118/69 11/29/17 08:00 80 11/29/17 08:00 98.0 76 18 118/69 76 Room Air 98.0 11/29/17 04:00 75 11/29/17 04:00 98.0 77 20 135/64 95 Room Air 98.0 11/29/17 00:00 98.0 94 20 110/66 95 Room Air 98.0 11/29/17 00:00 83 11/28/17 20:48 90 117/62 11/28/17 20:00 88 11/28/17 20:00 99.0 90 20 117/62 94 Room Air 99.0 11/28/17 16:00 99.0 88 21 100/58 94 99.0 11/28/17 16:00 86 Intake and Output 11/28/17 11/29/17 19:00 07:00 Intake Total 480 ml Output Total 1200 ml Balance -720 ml Intake Oral 480 ml Output Urine Total 1200 ml # Voids 2 # Bowel Movements 1 Laboratory Tests Test 11/29/17 06:55 White Blood Count 10.9 K/UL (4.8-10.8) H Red Blood Count 4.63 M/UL (4.20-5.40) Hemoglobin 12.2 G/DL (12.0-16.0) Hematocrit 38.5 % (37.0-47.0) Mean Corpuscular Volume 83 FL (80-99) Mean Corpuscular Hemoglobin 26.4 PG (27.0-31.0) L Mean Corpuscular Hemoglobin Concent 31.7 G/DL (32.0-36.0) L Red Cell Distribution Width 14.8 % (11.6-14.8) Platelet Count 240 K/UL (150-450) Mean Platelet Volume 9.2 FL (6.5-10.1) Neutrophils (%) (Auto) 69.3 % (45.0-75.0) Lymphocytes (%) (Auto) 18.6 % (20.0-45.0) L Monocytes (%) (Auto) 8.5 % (1.0-10.0) Eosinophils (%) (Auto) 2.9 % (0.0-3.0) Basophils (%) (Auto) 0.6 % (0.0-2.0) Sodium Level 141 MMOL/L (136-145) Potassium Level 3.6 MMOL/L (3.5-5.1) Chloride Level 104 MMOL/L (98-107) Carbon Dioxide Level 29 MMOL/L (21-32) Anion Gap 8 mmol/L (5-15) Blood Urea Nitrogen 34 mg/dL (7-18) H Creatinine 1.3 MG/DL (0.55-1.30) Estimat Glomerular Filtration Rate 40.5 mL/min (>60) Glucose Level 154 MG/DL (74-106) H Calcium Level 8.9 MG/DL (8.5-10.1) Troponin I 0.000 ng/mL (0.000-0.056) Pro-B-Type Natriuretic Peptide 1908 pg/mL (0-125) H Height (Feet): 5 Height (Inches): 1.00 Weight (Pounds): 176 Medications Current Medications Medications (Trade) Dose Ordered Sig/[place] Route PRN Reason Start Time Stop Time Status Last Admin Dose Admin Acetaminophen (Tylenol) 650 mg Q4H PRN ORAL Fever 11/28/17 06:15 12/28/17 06:14 Albuterol/ Ipratropium (Albuterol/ Ipratropium) 3 ml Q4H PRN HHN Shortness of Breath 11/28/17 06:15 12/03/17 06:14 Atorvastatin Calcium (Lipitor) 40 mg BEDTIME ORAL 11/28/17 21:00 12/28/17 20:59 11/28/17 20:47 Carvedilol (Coreg) 6.25 mg EVERY 12 HOURS ORAL 11/28/17 10:30 12/28/17 10:29 11/29/17 08:34 Cefepime HCl 1 gm/ Dextrose 110 ml @ 220 mls/hr Q24H IVPB 11/28/17 09:00 12/05/17 08:59 11/29/17 08:33 Clopidogrel Bisulfate (Plavix) 75 mg DAILY ORAL 11/28/17 09:00 12/28/17 08:59 11/29/17 08:35 Dextrose (Dextrose 50%) STAT PRN IV Hypoglycemia 11/28/17 06:15 12/28/17 06:14 Digoxin (Lanoxin) 0.25 mg DAILY ORAL 11/28/17 09:00 12/28/17 08:59 11/29/17 08:36 Furosemide (Lasix) 40 mg EVERY 8 HOURS IV 11/28/17 14:00 12/28/17 13:59 11/29/17 06:09 Gabapentin (Neurontin) 300 mg DAILY ORAL 11/29/17 09:00 12/29/17 08:59 11/29/17 08:35 Heparin Sodium (Porcine) (Heparin 5000 units/ml) 5,000 units EVERY 12 HOURS SUBQ 11/28/17 09:00 12/28/17 08:59 11/29/17 08:37 Insulin Aspart (NovoLOG) BEFORE MEALS AND HS SUBQ 11/28/17 06:30 12/28/17 06:29 11/29/17 12:04 Losartan Potassium (Cozaar) 25 mg DAILY ORAL 11/29/17 09:00 12/29/17 08:59 11/29/17 08:33 Ondansetron HCl (Zofran) 4 mg Q6H PRN IVP Nausea & Vomiting 11/28/17 06:15 12/28/17 06:14 Polyethylene Glycol (Miralax) 17 gm DAILYPRN PRN ORAL Constipation 11/28/17 06:15 12/28/17 06:14 Pregabalin (Lyrica) 50 mg BID ORAL 11/28/17 09:00 12/28/17 08:59 11/29/17 08:35 Temazepam (Restoril) 15 mg HSPRN PRN ORAL Insomnia 11/28/17 06:15 12/05/17 06:14 Assessment/Plan Assessment/Plan Abx: Cefepime 11/28- Assessment: CHF exacerbation B/l LE edema- no signs of cellulitis Leukocytosis, mild- improving -afebrile -CXR: There is generalized interstitial congestion, less severe than that seen previously. There is evidence of pleural fluid on the left. 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 Will continue to monitor. Discussed with RILEY. Licha Santos M.D. Nov 29, 2017 14:45
[2017-11-29 16:00] VITALS: BP 117/60
[2017-11-29 20:00] VITALS: BP 123/64
[2017-11-29] MEDS: Atorvastatin 20mg tab ORAL SCH (20:55)
[2017-11-30] VITALS: BP 110/66
[2017-11-30 04:00] VITALS: BP 121/71
[2017-11-30] MEDS: NovoLOG Insulin Flexpen SUBQ SCH ×4 (06:16→20:37)
[2017-11-30 07:37] LABS: BASOPHILS % (AUTO) 0.7 % (0.0-2.0); EOSINOPHILS % (AUTO) 3.8 % (0.0-3.0); HEMATOCRIT 36.9 % (37.0-47.0); HEMOGLOBIN 11.9 G/DL (12.0-16.0); LYMPHOCYTES % (AUTO) 17.5 % (20.0-45.0); MEAN CORPUSCULAR VOLUME 83 FL (80-99); MONOCYTES % (AUTO) 10.3 % (1.0-10.0); NEUTROPHILS % (AUTO) 67.7 % (45.0-75.0); PLATELET COUNT 231 K/UL (150-450); RED BLOOD COUNT 4.45 M/UL (4.20-5.40); RED CELL DISTRIBUTION WIDTH 14.4 % (11.6-14.8); WHITE BLOOD COUNT 10.7 K/UL (4.8-10.8)
[2017-11-30 08:00] VITALS: BP 135/68
[2017-11-30 08:31] LABS: ALANINE AMINOTRANSFERASE 19 U/L (12-78); ALBUMIN/GLOBULIN RATIO 0.6 (1.0-2.7); ALKALINE PHOSPHATASE 108 U/L (46-116); ANION GAP 8 mmol/L (5-15); ASPARTATE AMINO TRANSFERASE 16 U/L (15-37); BILIRUBIN,TOTAL 0.4 MG/DL (0.2-1.0); BLOOD UREA NITROGEN 40 mg/dL (7-18); CALCIUM 8.9 MG/DL (8.5-10.1); CARBON DIOXIDE 28 MMOL/L (21-32); CHLORIDE 103 MMOL/L (98-107); CREATININE 1.5 MG/DL (0.55-1.30); POTASSIUM 3.8 MMOL/L (3.5-5.1); SODIUM 139 MMOL/L (136-145)
[2017-11-30] MEDS: Losartan 25mg tab ORAL SCH (09:14)
[2017-11-30] MEDS: Carvedilol 6.25mg Tab ORAL SCH ×2 (09:14→20:33)
[2017-11-30] MEDS: Lyrica 50mg cap ORAL SCH ×2 (09:15→17:04)
[2017-11-30] MEDS: Heparin 5000 units/ml inj SUBQ SCH ×2 (09:16→20:38)
--- NOTE | 2017-11-30 09:47 | Diagnostic Imaging Report ---
Indication: Cough Technique: One view of the chest Comparison: 11/29/2017 Findings: Left chest biventricular AICD again demonstrated. Slightly better inspiration currently. Decreased and now minimal interstitial congestion. Impression: Improved and now minimal interstitial congestion, over one
--- NOTE | 2017-11-30 10:53 | Pulmonology Progress Note ---
Assessment/Plan Problems: (1) Acute CHF (2) Right hemiparesis (3) Cerebral vascular disease (4) HTN (hypertension) (5) Diabetic nephropathy (6) COPD (chronic obstructive pulmonary disease) (7) EF 25% Assessment/Plan improving hold diuretics b/o increasing bun/creatinine check electrolytes echo reviewed cardio note reviewed check CXR and BNP in am symptomatic treatment Subjective ROS Limited/Unobtainable: No Constitutional: Reports: no symptoms HEENT: Repors: no symptoms Respiratory: Reports: no symptoms Allergies: Coded Allergies: No Known Allergies (Unverified , 12/18/16) Objective Last 24 Hour Vital Signs Date Time Temp Pulse Resp B/P (MAP) Pulse Ox O2 Delivery O2 Flow Rate FiO2 11/30/17 09:15 78 11/30/17 09:14 135/68 11/30/17 09:14 78 135/68 11/30/17 08:00 78 11/30/17 08:00 98.0 78 18 135/68 92 Room Air 98.0 11/30/17 04:00 72 11/30/17 04:00 98.4 72 20 121/71 92 Room Air 98.4 11/30/17 00:00 74 11/30/17 00:00 97.3 74 20 110/66 96 Room Air 97.3 11/29/17 20:59 83 123/64 11/29/17 20:00 97.9 83 20 123/64 92 Room Air 97.9 11/29/17 20:00 90 11/29/17 16:00 97.8 77 18 117/60 71 Room Air 97.8 71 11/29/17 16:00 75 11/29/17 12:00 97.6 96 18 101/58 71 Room Air 97.6 71 11/29/17 12:00 70 Intake and Output 11/29/17 11/30/17 19:00 07:00 Intake Total 1010 ml 120 ml Output Total 700 ml 1000 ml Balance 310 ml -880 ml Intake Oral 120 ml IV Total 110 ml Other 900 ml Output Urine Total 700 ml 1000 ml # Bowel Movements 5 2 General Appearance: WD/WN HEENT: normocephalic, anicteric Respiratory/Chest: chest wall non-tender, lungs clear Breasts: no masses Cardiovascular: normal rate Abdomen: normal bowel sounds, soft, non tender 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, no motor/sensory deficits Microbiology Date/Time Source Procedure Growth Status 11/28/17 01:20 Urine,Clean Catch Urine Culture - Final Escherichia Coli - Esbl Complete Laboratory Tests 11/30/17 06:20: White Blood Count 10.7, Red Blood Count 4.45, Hemoglobin 11.9L, Hematocrit 36.9L , Mean Corpuscular Volume 83, Mean Corpuscular Hemoglobin 26.8L, Mean Corpuscular Hemoglobin Concent 32.3, Red Cell Distribution Width 14.4, Platelet Count 231, Mean Platelet Volume 9.3, Neutrophils (%) (Auto) 67.7, Lymphocytes (% ) (Auto) 17.5L, Monocytes (%) (Auto) 10.3H, Eosinophils (%) (Auto) 3.8H, Basophils (%) (Auto) 0.7, Sodium Level 139, Potassium Level 3.8, Chloride Level 103, Carbon Dioxide Level 28, Anion Gap 8, Blood Urea Nitrogen 40H, Creatinine 1.5H, Estimat Glomerular Filtration Rate 34.4, Glucose Level 190H, Calcium Level 8.9, Total Bilirubin 0.4, Aspartate Amino Transf (AST/SGOT) 16, Alanine Aminotransferase (ALT/SGPT) 19, Alkaline Phosphatase 108, Troponin I 0.000, Pro- B-Type Natriuretic Peptide 1185H, Total Protein 7.9, Albumin 3.0L, Globulin 4.9 , Albumin/Globulin Ratio 0.6L Current Medications Medications (Trade) Dose Ordered Sig/[place] Route PRN Reason Start Time Stop Time Status Last Admin Dose Admin Acetaminophen (Tylenol) 650 mg Q4H PRN ORAL Fever 11/28/17 06:15 12/28/17 06:14 Albuterol/ Ipratropium (Albuterol/ Ipratropium) 3 ml Q4H PRN HHN Shortness of Breath 11/28/17 06:15 12/03/17 06:14 Atorvastatin Calcium (Lipitor) 40 mg BEDTIME ORAL 11/28/17 21:00 12/28/17 20:59 11/29/17 20:55 Carvedilol (Coreg) 6.25 mg EVERY 12 HOURS ORAL 11/28/17 10:30 12/28/17 10:29 11/30/17 09:14 Clopidogrel Bisulfate (Plavix) 75 mg DAILY ORAL 11/28/17 09:00 7/19/18 08:59 11/30/17 09:14 Dextrose (Dextrose 50%) STAT PRN IV Hypoglycemia 11/28/17 06:15 12/28/17 06:14 Digoxin (Lanoxin) 0.25 mg DAILY ORAL 11/28/17 09:00 12/28/17 08:59 11/30/17 09:15 Furosemide (Lasix) 40 mg EVERY 8 HOURS IV 11/28/17 14:00 12/28/17 13:59 11/30/17 05:31 Gabapentin (Neurontin) 300 mg DAILY ORAL 11/29/17 09:00 12/29/17 08:59 11/30/17 09:13 Heparin Sodium (Porcine) (Heparin 5000 units/ml) 5,000 units EVERY 12 HOURS SUBQ 11/28/17 09:00 12/28/17 08:59 11/30/17 09:16 Insulin Aspart (NovoLOG) BEFORE MEALS AND HS SUBQ 11/28/17 06:30 12/28/17 06:29 11/30/17 06:16 Losartan Potassium (Cozaar) 25 mg DAILY ORAL 11/29/17 09:00 12/29/17 08:59 11/30/17 09:14 Ondansetron HCl (Zofran) 4 mg Q6H PRN IVP Nausea & Vomiting 11/28/17 06:15 12/28/17 06:14 Polyethylene Glycol (Miralax) 17 gm DAILYPRN PRN ORAL Constipation 11/28/17 06:15 12/28/17 06:14 Pregabalin (Lyrica) 50 mg BID ORAL 11/28/17 09:00 12/28/17 08:59 11/30/17 09:15 Temazepam (Restoril) 15 mg HSPRN PRN ORAL Insomnia 11/28/17 06:15 12/05/17 06:14 Ida Nolen MD Nov 30, 2017 10:53
[2017-11-30 12:00] VITALS: BP 127/63
--- NOTE | 2017-11-30 12:23 | General Progress Note ---
Assessment/Plan Status: stable, tolerating diet Assessment/Plan MDD cognitive impairment -low dose of ssri Subjective Date patient seen: Nov 30, 2017 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: Reports: anxiety, depressed, emotional problems Allergies: Coded Allergies: No Known Allergies (Unverified , 12/18/16) Objective Last 24 Hour Vital Signs Date Time Temp Pulse Resp B/P (MAP) Pulse Ox O2 Delivery O2 Flow Rate FiO2 11/30/17 09:15 78 11/30/17 09:14 135/68 11/30/17 09:14 78 135/68 11/30/17 08:00 78 11/30/17 08:00 98.0 78 18 135/68 92 Room Air 98.0 11/30/17 04:00 72 11/30/17 04:00 98.4 72 20 121/71 92 Room Air 98.4 11/30/17 00:00 74 11/30/17 00:00 97.3 74 20 110/66 96 Room Air 97.3 11/29/17 20:59 83 123/64 11/29/17 20:00 97.9 83 20 123/64 92 Room Air 97.9 11/29/17 20:00 90 11/29/17 16:00 97.8 77 18 117/60 71 Room Air 97.8 71 11/29/17 16:00 75 Intake and Output 11/29/17 11/30/17 19:00 07:00 Intake Total 1010 ml 120 ml Output Total 700 ml 1000 ml Balance 310 ml -880 ml Intake Oral 120 ml IV Total 110 ml Other 900 ml Output Urine Total 700 ml 1000 ml # Bowel Movements 5 2 Laboratory Tests 11/30/17 06:20: White Blood Count 10.7, Red Blood Count 4.45, Hemoglobin 11.9L, Hematocrit 36.9L , Mean Corpuscular Volume 83, Mean Corpuscular Hemoglobin 26.8L, Mean Corpuscular Hemoglobin Concent 32.3, Red Cell Distribution Width 14.4, Platelet Count 231, Mean Platelet Volume 9.3, Neutrophils (%) (Auto) 67.7, Lymphocytes (% ) (Auto) 17.5L, Monocytes (%) (Auto) 10.3H, Eosinophils (%) (Auto) 3.8H, Basophils (%) (Auto) 0.7, Sodium Level 139, Potassium Level 3.8, Chloride Level 103, Carbon Dioxide Level 28, Anion Gap 8, Blood Urea Nitrogen 40H, Creatinine 1.5H, Estimat Glomerular Filtration Rate 34.4, Glucose Level 190H, Calcium Level 8.9, Total Bilirubin 0.4, Aspartate Amino Transf (AST/SGOT) 16, Alanine Aminotransferase (ALT/SGPT) 19, Alkaline Phosphatase 108, Troponin I 0.000, Pro- B-Type Natriuretic Peptide 1185H, Total Protein 7.9, Albumin 3.0L, Globulin 4.9 , Albumin/Globulin Ratio 0.6L Height (Feet): 5 Height (Inches): 1.00 Weight (Pounds): 176 General Appearance: no apparent distress, alert Teresa Douglas M.D. Nov 30, 2017 12:23
--- NOTE | 2017-11-30 12:37 | Infectious Diseases Prog Note ---
Assessment/Plan Assessment/Plan Assessment: CHF exacerbation -CXR 11/30: Improved and now minimal interstitial congestion B/l LE edema- no signs of cellulitis Leukocytosis, mild- resolved -afebrile -CXR: There is generalized interstitial congestion, less severe than that seen previously. There is evidence of pleural fluid on the left. 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 Will continue to monitor. Discussed with RN. Subjective Allergies: Coded Allergies: No Known Allergies (Unverified , 12/18/16) Subjective afebrile leukocytosis resolved CXR improving Objective Vital Signs Last 24 Hour Vital Signs Date Time Temp Pulse Resp B/P (MAP) Pulse Ox O2 Delivery O2 Flow Rate FiO2 11/30/17 12:00 98.0 77 18 127/63 95 Room Air 98.0 11/30/17 09:15 78 11/30/17 09:14 135/68 11/30/17 09:14 78 135/68 11/30/17 08:00 78 11/30/17 08:00 98.0 78 18 135/68 96 Room Air 98.0 11/30/17 04:00 72 11/30/17 04:00 98.4 72 20 121/71 92 Room Air 98.4 11/30/17 00:00 74 11/30/17 00:00 97.3 74 20 110/66 96 Room Air 97.3 11/29/17 20:59 83 123/64 11/29/17 20:00 97.9 83 20 123/64 92 Room Air 97.9 11/29/17 20:00 90 11/29/17 16:00 97.8 77 18 117/60 71 Room Air 97.8 71 11/29/17 16:00 75 Height (Feet): 5 Height (Inches): 1.00 Weight (Pounds): 176 Objective GENERAL: The patient is a well-developed, well-nourished female, in no apparent distress. HEENT: Eyes, pupils equal responsive to light and accommodation. Extraocular movements are intact. NECK: Supple without lymphadenopathy. CHEST: Few crackles in bilateral bases with scattered expiratory wheezes. Otherwise, clear to auscultation without wheezes or rales. CARDIOVASCULAR: Regular rhythm and rate. S1 and S2 normal without murmurs, rubs, or gallops. ABDOMEN: Soft, nontender, and nondistended. Positive bowel sounds. No evidence of hepatosplenomegaly. Currently, no rebound or guarding noted. EXTREMITIES: A 2+ pitting edema bilaterally without clubbing or cyanosis. . Microbiology Date/Time Source Procedure Growth Status 11/28/17 01:20 Urine,Clean Catch Urine Culture - Final Escherichia Coli - Esbl Complete Laboratory Tests Test 11/30/17 06:20 White Blood Count 10.7 K/UL (4.8-10.8) Red Blood Count 4.45 M/UL (4.20-5.40) Hemoglobin 11.9 G/DL (12.0-16.0) L Hematocrit 36.9 % (37.0-47.0) L Mean Corpuscular Volume 83 FL (80-99) Mean Corpuscular Hemoglobin 26.8 PG (27.0-31.0) L Mean Corpuscular Hemoglobin Concent 32.3 G/DL (32.0-36.0) Red Cell Distribution Width 14.4 % (11.6-14.8) Platelet Count 231 K/UL (150-450) Mean Platelet Volume 9.3 FL (6.5-10.1) Neutrophils (%) (Auto) 67.7 % (45.0-75.0) Lymphocytes (%) (Auto) 17.5 % (20.0-45.0) L Monocytes (%) (Auto) 10.3 % (1.0-10.0) H Eosinophils (%) (Auto) 3.8 % (0.0-3.0) H Basophils (%) (Auto) 0.7 % (0.0-2.0) Sodium Level 139 MMOL/L (136-145) Potassium Level 3.8 MMOL/L (3.5-5.1) Chloride Level 103 MMOL/L (98-107) Carbon Dioxide Level 28 MMOL/L (21-32) Anion Gap 8 mmol/L (5-15) Blood Urea Nitrogen 40 mg/dL (7-18) H Creatinine 1.5 MG/DL (0.55-1.30) H Estimat Glomerular Filtration Rate 34.4 mL/min (>60) Glucose Level 190 MG/DL (74-106) H Calcium Level 8.9 MG/DL (8.5-10.1) Total Bilirubin 0.4 MG/DL (0.2-1.0) Aspartate Amino Transf (AST/SGOT) 16 U/L (15-37) Alanine Aminotransferase (ALT/SGPT) 19 U/L (12-78) Alkaline Phosphatase 108 U/L (46-116) Troponin I 0.000 ng/mL (0.000-0.056) Pro-B-Type Natriuretic Peptide 1185 pg/mL (0-125) H Total Protein 7.9 G/DL (6.4-8.2) Albumin 3.0 G/DL (3.4-5.0) L Globulin 4.9 g/dL Albumin/Globulin Ratio 0.6 (1.0-2.7) L Current Medications Medications (Trade) Dose Ordered Sig/[place] Route PRN Reason Start Time Stop Time Status Last Admin Dose Admin Acetaminophen (Tylenol) 650 mg Q4H PRN ORAL Fever 11/28/17 06:15 12/28/17 06:14 Albuterol/ Ipratropium (Albuterol/ Ipratropium) 3 ml Q4H PRN HHN Shortness of Breath 11/28/17 06:15 12/03/17 06:14 Atorvastatin Calcium (Lipitor) 40 mg BEDTIME ORAL 11/28/17 21:00 12/28/17 20:59 11/29/17 20:55 Carvedilol (Coreg) 6.25 mg EVERY 12 HOURS ORAL 11/28/17 10:30 12/28/17 10:29 11/30/17 09:14 Clopidogrel Bisulfate (Plavix) 75 mg DAILY ORAL 11/28/17 09:00 12/28/17 08:59 11/30/17 09:14 Dextrose (Dextrose 50%) STAT PRN IV Hypoglycemia 11/28/17 06:15 12/28/17 06:14 Digoxin (Lanoxin) 0.25 mg DAILY ORAL 11/28/17 09:00 12/28/17 08:59 11/30/17 09:15 Gabapentin (Neurontin) 300 mg DAILY ORAL 11/29/17 09:00 12/29/17 08:59 11/30/17 09:13 Heparin Sodium (Porcine) (Heparin 5000 units/ml) 5,000 units EVERY 12 HOURS SUBQ 11/28/17 09:00 12/28/17 08:59 11/30/17 09:16 Insulin Aspart (NovoLOG) BEFORE MEALS AND HS SUBQ 11/28/17 06:30 12/28/17 06:29 11/30/17 11:59 Losartan Potassium (Cozaar) 25 mg DAILY ORAL 11/29/17 09:00 12/29/17 08:59 11/30/17 09:14 Ondansetron HCl (Zofran) 4 mg Q6H PRN IVP Nausea & Vomiting 11/28/17 06:15 12/28/17 06:14 Polyethylene Glycol (Miralax) 17 gm DAILYPRN PRN ORAL Constipation 11/28/17 06:15 12/28/17 06:14 Pregabalin (Lyrica) 50 mg BID ORAL 11/28/17 09:00 12/28/17 08:59 11/30/17 09:15 Temazepam (Restoril) 15 mg HSPRN PRN ORAL Insomnia 11/28/17 06:15 12/05/17 06:14 Licha Santos M.D. Nov 30, 2017 12:37
--- NOTE | 2017-11-30 15:15 | Internal Med Progress Note ---
Subjective Date of Service: Nov 30, 2017 Physician Name Ash Li Attending Physician Brendan Wright MD Current Medications Medications (Trade) Dose Ordered Sig/[place] Route PRN Reason Start Time Stop Time Status Last Admin Dose Admin Acetaminophen (Tylenol) 650 mg Q4H PRN ORAL Fever 11/28/17 06:15 12/28/17 06:14 Albuterol/ Ipratropium (Albuterol/ Ipratropium) 3 ml Q4H PRN HHN Shortness of Breath 11/28/17 06:15 12/03/17 06:14 Atorvastatin Calcium (Lipitor) 40 mg BEDTIME ORAL 11/28/17 21:00 12/28/17 20:59 11/29/17 20:55 Carvedilol (Coreg) 6.25 mg EVERY 12 HOURS ORAL 11/28/17 10:30 12/28/17 10:29 11/30/17 09:14 Clopidogrel Bisulfate (Plavix) 75 mg DAILY ORAL 11/28/17 09:00 12/28/17 08:59 11/30/17 09:14 Dextrose (Dextrose 50%) STAT PRN IV Hypoglycemia 11/28/17 06:15 12/28/17 06:14 Digoxin (Lanoxin) 0.25 mg DAILY ORAL 11/28/17 09:00 12/28/17 08:59 11/30/17 09:15 Gabapentin (Neurontin) 300 mg DAILY ORAL 11/29/17 09:00 12/29/17 08:59 11/30/17 09:13 Heparin Sodium (Porcine) (Heparin 5000 units/ml) 5,000 units EVERY 12 HOURS SUBQ 11/28/17 09:00 12/28/17 08:59 11/30/17 09:16 Insulin Aspart (NovoLOG) BEFORE MEALS AND HS SUBQ 11/28/17 06:30 12/28/17 06:29 11/30/17 11:59 Losartan Potassium (Cozaar) 25 mg DAILY ORAL 11/29/17 09:00 12/29/17 08:59 11/30/17 09:14 Ondansetron HCl (Zofran) 4 mg Q6H PRN IVP Nausea & Vomiting 11/28/17 06:15 12/28/17 06:14 Polyethylene Glycol (Miralax) 17 gm DAILYPRN PRN ORAL Constipation 11/28/17 06:15 12/28/17 06:14 Pregabalin (Lyrica) 50 mg BID ORAL 11/28/17 09:00 12/28/17 08:59 11/30/17 09:15 Temazepam (Restoril) 15 mg HSPRN PRN ORAL Insomnia 11/28/17 06:15 12/05/17 06:14 Allergies: Coded Allergies: No Known Allergies (Unverified , 12/18/16) ROS Limited/Unobtainable: No Constitutional: Reports: no symptoms HEENT: Reports: no symptoms Cardiovascular: Reports: no symptoms Respiratory: Reports: shortness of breath Gastrointestinal/Abdominal: Reports: no symptoms Genitourinary: Reports: no symptoms 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: Reports: no symptoms Subjective 72 YO F admitted with shortness of breath and edema. Now acute on chronic congestive heart failure. Cover for Int [place]-Dr Wright. Objective Last Vital Signs Date Time Temp Pulse Resp B/P (MAP) Pulse Ox O2 Delivery O2 Flow Rate FiO2 11/30/17 12:00 78 11/30/17 12:00 98.0 18 127/63 95 Room Air 98.0 11/30/17 08:10 21 Laboratory Tests Test 11/30/17 06:20 White Blood Count 10.7 K/UL (4.8-10.8) Red Blood Count 4.45 M/UL (4.20-5.40) Hemoglobin 11.9 G/DL (12.0-16.0) L Hematocrit 36.9 % (37.0-47.0) L Mean Corpuscular Volume 83 FL (80-99) Mean Corpuscular Hemoglobin 26.8 PG (27.0-31.0) L Mean Corpuscular Hemoglobin Concent 32.3 G/DL (32.0-36.0) Red Cell Distribution Width 14.4 % (11.6-14.8) Platelet Count 231 K/UL (150-450) Mean Platelet Volume 9.3 FL (6.5-10.1) Neutrophils (%) (Auto) 67.7 % (45.0-75.0) Lymphocytes (%) (Auto) 17.5 % (20.0-45.0) L Monocytes (%) (Auto) 10.3 % (1.0-10.0) H Eosinophils (%) (Auto) 3.8 % (0.0-3.0) H Basophils (%) (Auto) 0.7 % (0.0-2.0) Sodium Level 139 MMOL/L (136-145) Potassium Level 3.8 MMOL/L (3.5-5.1) Chloride Level 103 MMOL/L (98-107) Carbon Dioxide Level 28 MMOL/L (21-32) Anion Gap 8 mmol/L (5-15) Blood Urea Nitrogen 40 mg/dL (7-18) H Creatinine 1.5 MG/DL (0.55-1.30) H Estimat Glomerular Filtration Rate 34.4 mL/min (>60) Glucose Level 190 MG/DL (74-106) H Calcium Level 8.9 MG/DL (8.5-10.1) Total Bilirubin 0.4 MG/DL (0.2-1.0) Aspartate Amino Transf (AST/SGOT) 16 U/L (15-37) Alanine Aminotransferase (ALT/SGPT) 19 U/L (12-78) Alkaline Phosphatase 108 U/L (46-116) Troponin I 0.000 ng/mL (0.000-0.056) Pro-B-Type Natriuretic Peptide 1185 pg/mL (0-125) H Total Protein 7.9 G/DL (6.4-8.2) Albumin 3.0 G/DL (3.4-5.0) L Globulin 4.9 g/dL Albumin/Globulin Ratio 0.6 (1.0-2.7) L Microbiology Date/Time Source Procedure Growth Status 11/28/17 01:20 Urine,Clean Catch Urine Culture - Final Escherichia Coli - Esbl Complete Intake and Output 11/29/17 11/30/17 19:00 07:00 Intake Total 1010 ml 120 ml Output Total 700 ml 1000 ml Balance 310 ml -880 ml Intake Oral 120 ml IV Total 110 ml Other 900 ml Output Urine Total 700 ml 1000 ml # Bowel Movements 5 2 Objective General Appearance: WD/WN, alert, mild distress EENT: PERRL/EOMI, normal ENT inspection Neck: non-tender, normal alignment, supple, normal inspection Cardiovascular: normal peripheral pulses, normal rate, regular rhythm, no gallop/murmur, no JVD Respiratory/Chest: chest wall non-tender, no accessory muscle use, crackles/ rales, rhonchi - bilaterally, expiratory wheezing Abdomen: normal bowel sounds, non tender, soft, no organomegaly, no mass Extremities: normal range of motion, normal inspection Edema: mild edema 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 (2) Acute CHF Assessment & Plan: LVEF=30%. See cardiology recs. (3) Shortness of breath (4) Hypertension Assessment & Plan: Continue cozaar and coreg per cardiology (5) Diabetes mellitus Assessment & Plan: Continue novolog sliding scale. (6) Hemiplegia affecting right dominant side (7) Cerebral vascular disease Status: progressing Ash Li MD Nov 30, 2017 15:15
[2017-11-30 16:00] VITALS: BP 121/58
--- NOTE | 2017-11-30 18:04 | Cardiology Progress Note ---
Assessment/Plan Status: stable Assessment/Plan 2D echo reviewed, severe systolic dysfunction and severe mitral regurgitation -Continue beta dayna with goal heart rate 60 to reduce regurgitant volume -MR appears functional, recommend outpatient follow up to arrange mitraclip evaluation -Continue losartan for afterload reduction for systolic heart failure -lasix to reduce filling pressures and reduce edema -> CXR shows interval improvement, -> transition to PO lasix (currently on hold due to elevated creatinine) EKG with A sensed V paced - normally functioning -BNP improved -ABx for UTI/urosepsis Subjective Cardiovascular: Reports: no symptoms Respiratory: Reports: no symptoms Gastrointestinal/Abdominal: Reports: no symptoms Genitourinary: Reports: no symptoms Subjective CXR shows interval improvement in congestion. Vitals stable, no chest pain, breathing unlabored Creatinine mildly elevated lasix stopped Urine positive for ESBL BNP improved Objective Last 24 Hour Vital Signs Date Time Temp Pulse Resp B/P (MAP) Pulse Ox O2 Delivery O2 Flow Rate FiO2 11/30/17 16:00 79 11/30/17 16:00 98.2 82 20 121/58 96 Room Air 98.2 11/30/17 12:00 78 11/30/17 12:00 98.0 77 18 127/63 95 Room Air 98.0 11/30/17 09:15 78 11/30/17 09:14 135/68 11/30/17 09:14 78 135/68 11/30/17 08:10 77 18 Room Air 21 11/30/17 08:00 78 11/30/17 08:00 98.0 78 18 135/68 96 Room Air 98.0 11/30/17 04:00 72 11/30/17 04:00 98.4 72 20 121/71 92 Room Air 98.4 11/30/17 00:00 74 11/30/17 00:00 97.3 74 20 110/66 96 Room Air 97.3 11/29/17 20:59 83 123/64 11/29/17 20:00 97.9 83 20 123/64 92 Room Air 97.9 11/29/17 20:00 90 General Appearance: no apparent distress EENT: PERRL/EOMI Neck: non-tender Rhythm: NSR Cardiovascular: normal peripheral pulses Respiratory/Chest: chest wall non-tender Abdomen: normal bowel sounds Extremities: normal range of motion 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 Intake and Output 11/29/17 11/30/17 19:00 07:00 Intake Total 1010 ml 120 ml Output Total 700 ml 1000 ml Balance 310 ml -880 ml Intake Oral 120 ml IV Total 110 ml Other 900 ml Output Urine Total 700 ml 1000 ml # Bowel Movements 5 2 Laboratory Tests Test 11/30/17 06:20 White Blood Count 10.7 K/UL (4.8-10.8) Red Blood Count 4.45 M/UL (4.20-5.40) Hemoglobin 11.9 G/DL (12.0-16.0) L Hematocrit 36.9 % (37.0-47.0) L Mean Corpuscular Volume 83 FL (80-99) Mean Corpuscular Hemoglobin 26.8 PG (27.0-31.0) L Mean Corpuscular Hemoglobin Concent 32.3 G/DL (32.0-36.0) Red Cell Distribution Width 14.4 % (11.6-14.8) Platelet Count 231 K/UL (150-450) Mean Platelet Volume 9.3 FL (6.5-10.1) Neutrophils (%) (Auto) 67.7 % (45.0-75.0) Lymphocytes (%) (Auto) 17.5 % (20.0-45.0) L Monocytes (%) (Auto) 10.3 % (1.0-10.0) H Eosinophils (%) (Auto) 3.8 % (0.0-3.0) H Basophils (%) (Auto) 0.7 % (0.0-2.0) Sodium Level 139 MMOL/L (136-145) Potassium Level 3.8 MMOL/L (3.5-5.1) Chloride Level 103 MMOL/L (98-107) Carbon Dioxide Level 28 MMOL/L (21-32) Anion Gap 8 mmol/L (5-15) Blood Urea Nitrogen 40 mg/dL (7-18) H Creatinine 1.5 MG/DL (0.55-1.30) H Estimat Glomerular Filtration Rate 34.4 mL/min (>60) Glucose Level 190 MG/DL (74-106) H Calcium Level 8.9 MG/DL (8.5-10.1) Total Bilirubin 0.4 MG/DL (0.2-1.0) Aspartate Amino Transf (AST/SGOT) 16 U/L (15-37) Alanine Aminotransferase (ALT/SGPT) 19 U/L (12-78) Alkaline Phosphatase 108 U/L (46-116) Troponin I 0.000 ng/mL (0.000-0.056) Pro-B-Type Natriuretic Peptide 1185 pg/mL (0-125) H Total Protein 7.9 G/DL (6.4-8.2) Albumin 3.0 G/DL (3.4-5.0) L Globulin 4.9 g/dL Albumin/Globulin Ratio 0.6 (1.0-2.7) L Microbiology Date/Time Source Procedure Growth Status 11/28/17 01:20 Urine,Clean Catch Urine Culture - Final Escherichia Coli - Esbl Complete Jose Luis Suarez M.D. Nov 30, 2017 18:04
[2017-11-30 20:00] VITALS: BP 124/57
[2017-11-30] MEDS: Atorvastatin 20mg tab ORAL SCH (20:33)
[2017-12-01] VITALS: BP 144/61
[2017-12-01 04:00] VITALS: BP 124/58
[2017-12-01] MEDS: NovoLOG Insulin Flexpen SUBQ SCH ×4 (05:55→21:15)
[2017-12-01 08:00] VITALS: BP 103/56
[2017-12-01] MEDS: Losartan 25mg tab ORAL SCH (09:00)
[2017-12-01] MEDS: Carvedilol 6.25mg Tab ORAL SCH ×2 (09:00→21:17)
[2017-12-01] MEDS: Lyrica 50mg cap ORAL SCH ×2 (09:18→17:31)
[2017-12-01] MEDS: Heparin 5000 units/ml inj SUBQ SCH ×2 (09:20→21:16)
[2017-12-01 09:23] LABS: BASOPHILS % (AUTO) 0.5 % (0.0-2.0); EOSINOPHILS % (AUTO) 4.7 % (0.0-3.0); HEMATOCRIT 36.2 % (37.0-47.0); HEMOGLOBIN 11.2 G/DL (12.0-16.0); LYMPHOCYTES % (AUTO) 19.4 % (20.0-45.0); MEAN CORPUSCULAR VOLUME 83 FL (80-99); NEUTROPHILS % (AUTO) 64.4 % (45.0-75.0); PLATELET COUNT 233 K/UL (150-450); RED BLOOD COUNT 4.36 M/UL (4.20-5.40); RED CELL DISTRIBUTION WIDTH 14.6 % (11.6-14.8); WHITE BLOOD COUNT 8.5 K/UL (4.8-10.8)
--- NOTE | 2017-12-01 09:54 | Diagnostic Imaging Report ---
Indication: Dyspnea Technique: One view of the chest Comparison: 11/30/2017 Findings: There is a left chest biventricular AICD again demonstrated. Lungs and pleural spaces are clear. Previously demonstrated minimal interstitial changes have largely resolved, only minimal if any residual. The heart size is borderline enlarged Impression: No acute process
[2017-12-01 09:59] LABS: ALANINE AMINOTRANSFERASE 14 U/L (12-78); ALBUMIN 2.7 G/DL (3.4-5.0); ALBUMIN/GLOBULIN RATIO 0.6 (1.0-2.7); ALKALINE PHOSPHATASE 119 U/L (46-116); ANION GAP 5 mmol/L (5-15); ASPARTATE AMINO TRANSFERASE 14 U/L (15-37); BILIRUBIN,TOTAL 0.3 MG/DL (0.2-1.0); BLOOD UREA NITROGEN 49 mg/dL (7-18); CALCIUM 8.5 MG/DL (8.5-10.1); CARBON DIOXIDE 30 MMOL/L (21-32); CHLORIDE 107 MMOL/L (98-107); CREATININE 1.6 MG/DL (0.55-1.30); POTASSIUM 4.3 MMOL/L (3.5-5.1); SODIUM 142 MMOL/L (136-145)
--- NOTE | 2017-12-01 11:47 | Pulmonology Progress Note ---
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 check electrolytes echo reviewed cardio note reviewed check CXR and BNP reviewed symptomatic treatment Subjective ROS Limited/Unobtainable: No Interval Events: no new complains Allergies: Coded Allergies: No Known Allergies (Unverified , 12/18/16) Objective Last 24 Hour Vital Signs Date Time Temp Pulse Resp B/P (MAP) Pulse Ox O2 Delivery O2 Flow Rate FiO2 12/01/17 09:17 71 12/01/17 09:00 103/56 12/01/17 09:00 71 103/56 12/01/17 08:00 97.4 71 20 103/56 100 Nasal Cannula 2.0 97.4 12/01/17 07:45 72 12/01/17 04:00 97.0 74 20 124/58 98 Nasal Cannula 2.0 97.0 12/01/17 04:00 75 12/01/17 00:00 97.2 89 22 144/61 97 Nasal Cannula 2.0 97.2 12/01/17 00:00 89 11/30/17 20:33 94 124/57 11/30/17 20:00 96 11/30/17 20:00 97.0 94 20 124/57 96 Room Air 97.0 11/30/17 19:58 79 20 Room Air 21 11/30/17 16:00 79 11/30/17 16:00 98.2 82 20 121/58 96 Room Air 98.2 11/30/17 12:00 78 11/30/17 12:00 98.0 77 18 127/63 95 Room Air 98.0 Intake and Output 11/30/17 12/01/17 19:00 07:00 Intake Total 360 ml Output Total 700 ml 1000 ml Balance -340 ml -1000 ml Intake Oral 360 ml Output Urine Total 700 ml 1000 ml # Bowel Movements 1 General Appearance: WD/WN HEENT: normocephalic, atraumatic, anicteric Respiratory/Chest: chest wall non-tender, lungs clear Breasts: no masses Cardiovascular: normal peripheral pulses, normal rate Abdomen: normal bowel sounds, soft, non tender Genitourinary: normal external genitalia Extremities: no clubbing Laboratory Tests 12/01/17 08:45: White Blood Count 8.5, Red Blood Count 4.36, Hemoglobin 11.2L, Hematocrit 36.2L , Mean Corpuscular Volume 83, Mean Corpuscular Hemoglobin 25.7L, Mean Corpuscular Hemoglobin Concent 30.9L, Red Cell Distribution Width 14.6, Platelet Count 233, Mean Platelet Volume 9.2, Neutrophils (%) (Auto) 64.4, Lymphocytes (%) (Auto) 19.4L, Monocytes (%) (Auto) 11.0H, Eosinophils (%) (Auto ) 4.7H, Basophils (%) (Auto) 0.5, Sodium Level 142, Potassium Level 4.3, Chloride Level 107, Carbon Dioxide Level 30, Anion Gap 5, Blood Urea Nitrogen 49H, Creatinine 1.6H, Estimat Glomerular Filtration Rate 31.8, Glucose Level 298 #H, Calcium Level 8.5, Total Bilirubin 0.3, Aspartate Amino Transf (AST/SGOT) 14L, Alanine Aminotransferase (ALT/SGPT) 14, Alkaline Phosphatase 119H, Pro-B- Type Natriuretic Peptide 1583H, Total Protein 7.4, Albumin 2.7L, Globulin 4.7, Albumin/Globulin Ratio 0.6L Current Medications Medications (Trade) Dose Ordered Sig/[place] Route PRN Reason Start Time Stop Time Status Last Admin Dose Admin Acetaminophen (Tylenol) 650 mg Q4H PRN ORAL Fever 11/28/17 06:15 12/28/17 06:14 11/30/17 20:34 Albuterol/ Ipratropium (Albuterol/ Ipratropium) 3 ml Q4H PRN HHN Shortness of Breath 11/28/17 06:15 12/03/17 06:14 Atorvastatin Calcium (Lipitor) 40 mg BEDTIME ORAL 11/28/17 21:00 12/28/17 20:59 11/30/17 20:33 Carvedilol (Coreg) 6.25 mg EVERY 12 HOURS ORAL 11/28/17 10:30 12/28/17 10:29 11/30/17 20:33 Clopidogrel Bisulfate (Plavix) 75 mg DAILY ORAL 11/28/17 09:00 12/28/17 08:59 12/01/17 09:18 Dextrose (Dextrose 50%) STAT PRN IV Hypoglycemia 11/28/17 06:15 12/28/17 06:14 Digoxin (Lanoxin) 0.25 mg DAILY ORAL 11/28/17 09:00 12/28/17 08:59 12/01/17 09:17 Gabapentin (Neurontin) 300 mg DAILY ORAL 11/29/17 09:00 12/29/17 08:59 12/01/17 09:17 Heparin Sodium (Porcine) (Heparin 5000 units/ml) 5,000 units EVERY 12 HOURS SUBQ 11/28/17 09:00 12/28/17 08:59 12/01/17 09:20 Insulin Aspart (NovoLOG) BEFORE MEALS AND HS SUBQ 11/28/17 06:30 12/28/17 06:29 12/01/17 05:55 Losartan Potassium (Cozaar) 25 mg DAILY ORAL 11/29/17 09:00 12/29/17 08:59 11/30/17 09:14 Ondansetron HCl (Zofran) 4 mg Q6H PRN IVP Nausea & Vomiting 11/28/17 06:15 12/28/17 06:14 Polyethylene Glycol (Miralax) 17 gm DAILYPRN PRN ORAL Constipation 11/28/17 06:15 12/28/17 06:14 Pregabalin (Lyrica) 50 mg BID ORAL 11/28/17 09:00 12/28/17 08:59 12/01/17 09:18 Temazepam (Restoril) 15 mg HSPRN PRN ORAL Insomnia 11/28/17 06:15 12/05/17 06:14 Ida Nolen MD Dec 01, 2017 11:47
[2017-12-01 12:00] VITALS: BP 123/50
--- NOTE | 2017-12-01 12:19 | Infectious Diseases Prog Note ---
Assessment/Plan Assessment/Plan Assessment: CHF exacerbation; improving -CXR 12/01: No acute process -CXR 11/30: Improved and now minimal interstitial congestion B/l LE edema- no signs of cellulitis Leukocytosis, mild- resolved -afebrile -CXR: There is generalized interstitial congestion, less severe than that seen previously. There is evidence of pleural fluid on the left. 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 Will continue to monitor. Discussed with RN. Subjective Allergies: Coded Allergies: No Known Allergies (Unverified , 12/18/16) Subjective afebrile no leukocytosis At RA CXR improving Objective Vital Signs Last 24 Hour Vital Signs Date Time Temp Pulse Resp B/P (MAP) Pulse Ox O2 Delivery O2 Flow Rate FiO2 12/01/17 10:58 75 20 Room Air 21 12/01/17 09:17 71 12/01/17 09:00 103/56 12/01/17 09:00 71 103/56 12/01/17 08:00 97.4 71 20 103/56 100 Nasal Cannula 2.0 97.4 12/01/17 07:45 72 12/01/17 04:00 97.0 74 20 124/58 98 Nasal Cannula 2.0 97.0 12/01/17 04:00 75 12/01/17 00:00 97.2 89 22 144/61 97 Nasal Cannula 2.0 97.2 12/01/17 00:00 89 11/30/17 20:33 94 124/57 6/21/18 20:00 96 11/30/17 20:00 97.0 94 20 124/57 96 Room Air 97.0 11/30/17 19:58 79 20 Room Air 21 11/30/17 16:00 79 11/30/17 16:00 98.2 82 20 121/58 96 Room Air 98.2 Height (Feet): 5 Height (Inches): 1.00 Weight (Pounds): 182 Objective GENERAL: The patient is a well-developed, well-nourished female, in no apparent distress. HEENT: Eyes, pupils equal responsive to light and accommodation. Extraocular movements are intact. NECK: Supple without lymphadenopathy. CHEST: Few crackles in bilateral bases with scattered expiratory wheezes. Otherwise, clear to auscultation without wheezes or rales. CARDIOVASCULAR: Regular rhythm and rate. S1 and S2 normal without murmurs, rubs, or gallops. ABDOMEN: Soft, nontender, and nondistended. Positive bowel sounds. No evidence of hepatosplenomegaly. Currently, no rebound or guarding noted. EXTREMITIES: A 2+ pitting edema bilaterally without clubbing or cyanosis. . Laboratory Tests Test 12/01/17 08:45 White Blood Count 8.5 K/UL (4.8-10.8) Red Blood Count 4.36 M/UL (4.20-5.40) Hemoglobin 11.2 G/DL (12.0-16.0) L Hematocrit 36.2 % (37.0-47.0) L Mean Corpuscular Volume 83 FL (80-99) Mean Corpuscular Hemoglobin 25.7 PG (27.0-31.0) L Mean Corpuscular Hemoglobin Concent 30.9 G/DL (32.0-36.0) L Red Cell Distribution Width 14.6 % (11.6-14.8) Platelet Count 233 K/UL (150-450) Mean Platelet Volume 9.2 FL (6.5-10.1) Neutrophils (%) (Auto) 64.4 % (45.0-75.0) Lymphocytes (%) (Auto) 19.4 % (20.0-45.0) L Monocytes (%) (Auto) 11.0 % (1.0-10.0) H Eosinophils (%) (Auto) 4.7 % (0.0-3.0) H Basophils (%) (Auto) 0.5 % (0.0-2.0) Sodium Level 142 MMOL/L (136-145) Potassium Level 4.3 MMOL/L (3.5-5.1) Chloride Level 107 MMOL/L (98-107) Carbon Dioxide Level 30 MMOL/L (21-32) Anion Gap 5 mmol/L (5-15) Blood Urea Nitrogen 49 mg/dL (7-18) H Creatinine 1.6 MG/DL (0.55-1.30) H Estimat Glomerular Filtration Rate 31.8 mL/min (>60) Glucose Level 298 MG/DL (74-106) #H Calcium Level 8.5 MG/DL (8.5-10.1) Total Bilirubin 0.3 MG/DL (0.2-1.0) Aspartate Amino Transf (AST/SGOT) 14 U/L (15-37) L Alanine Aminotransferase (ALT/SGPT) 14 U/L (12-78) Alkaline Phosphatase 119 U/L (46-116) H Pro-B-Type Natriuretic Peptide 1583 pg/mL (0-125) H Total Protein 7.4 G/DL (6.4-8.2) Albumin 2.7 G/DL (3.4-5.0) L Globulin 4.7 g/dL Albumin/Globulin Ratio 0.6 (1.0-2.7) L Current Medications Medications (Trade) Dose Ordered Sig/[place] Route PRN Reason Start Time Stop Time Status Last Admin Dose Admin Acetaminophen (Tylenol) 650 mg Q4H PRN ORAL Fever 11/28/17 06:15 12/28/17 06:14 11/30/17 20:34 Albuterol/ Ipratropium (Albuterol/ Ipratropium) 3 ml Q4H PRN HHN Shortness of Breath 11/28/17 06:15 12/03/17 06:14 Atorvastatin Calcium (Lipitor) 40 mg BEDTIME ORAL 11/28/17 21:00 12/28/17 20:59 11/30/17 20:33 Carvedilol (Coreg) 6.25 mg EVERY 12 HOURS ORAL 11/28/17 10:30 12/28/17 10:29 11/30/17 20:33 Clopidogrel Bisulfate (Plavix) 75 mg DAILY ORAL 11/28/17 09:00 7/19/18 08:59 12/01/17 09:18 Dextrose (Dextrose 50%) STAT PRN IV Hypoglycemia 11/28/17 06:15 12/28/17 06:14 Digoxin (Lanoxin) 0.25 mg DAILY ORAL 11/28/17 09:00 12/28/17 08:59 12/01/17 09:17 Gabapentin (Neurontin) 300 mg DAILY ORAL 11/29/17 09:00 12/29/17 08:59 12/01/17 09:17 Heparin Sodium (Porcine) (Heparin 5000 units/ml) 5,000 units EVERY 12 HOURS SUBQ 11/28/17 09:00 12/28/17 08:59 12/01/17 09:20 Insulin Aspart (NovoLOG) BEFORE MEALS AND HS SUBQ 11/28/17 06:30 12/28/17 06:29 12/01/17 11:59 Ondansetron HCl (Zofran) 4 mg Q6H PRN IVP Nausea & Vomiting 11/28/17 06:15 12/28/17 06:14 Polyethylene Glycol (Miralax) 17 gm DAILYPRN PRN ORAL Constipation 11/28/17 06:15 12/28/17 06:14 Pregabalin (Lyrica) 50 mg BID ORAL 11/28/17 09:00 12/28/17 08:59 12/01/17 09:18 Temazepam (Restoril) 15 mg HSPRN PRN ORAL Insomnia 11/28/17 06:15 12/05/17 06:14 Licha Santos M.D. Dec 01, 2017 12:19
[2017-12-01 16:00] VITALS: BP 132/54
--- NOTE | 2017-12-01 16:29 | Cardiology Progress Note ---
Assessment/Plan Status: stable Assessment/Plan 2D echo reviewed, severe systolic dysfunction and severe mitral regurgitation -Continue beta dayna with goal heart rate 60 to reduce regurgitant volume -MR appears functional, recommend outpatient follow up to arrange mitraclip evaluation -Change losartan to isordil/hydralazine for preload/afterload reduction -Lasix on hold due to rising creatinine, once stable keep on maintenance 20 mg daily to reduce filling pressures EKG with A sensed V paced - normally functioning -BNP improved -ABx for UTI/urosepsis Subjective Cardiovascular: Reports: no symptoms Respiratory: Reports: no symptoms Gastrointestinal/Abdominal: Reports: no symptoms Genitourinary: Reports: no symptoms Subjective CXR shows interval improvement in congestion. Now clear today Vitals stable, no chest pain, breathing unlabored BUN creatinine elevated 1.6, lasix and losartan stopped Urine positive for ESBL BNP improved Objective Last 24 Hour Vital Signs Date Time Temp Pulse Resp B/P (MAP) Pulse Ox O2 Delivery O2 Flow Rate FiO2 12/01/17 16:00 97.3 75 20 132/54 97 Nasal Cannula 2.0 97.3 12/01/17 15:18 75 12/01/17 12:00 97.5 78 20 123/50 95 Nasal Cannula 2.0 97.5 12/01/17 11:44 70 12/01/17 10:58 75 20 Room Air 21 12/01/17 09:17 71 12/01/17 09:00 103/56 12/01/17 09:00 71 103/56 12/01/17 08:00 97.4 71 20 103/56 100 Nasal Cannula 2.0 97.4 12/01/17 07:45 72 12/01/17 04:00 97.0 74 20 124/58 98 Nasal Cannula 2.0 97.0 12/01/17 04:00 75 12/01/17 00:00 97.2 89 22 144/61 97 Nasal Cannula 2.0 97.2 12/01/17 00:00 89 11/30/17 20:33 94 124/57 11/30/17 20:00 96 11/30/17 20:00 97.0 94 20 124/57 96 Room Air 97.0 11/30/17 19:58 79 20 Room Air 21 General Appearance: no apparent distress EENT: PERRL/EOMI Neck: non-tender Rhythm: NSR Cardiovascular: normal peripheral pulses Respiratory/Chest: chest wall non-tender Abdomen: normal bowel sounds Extremities: normal range of motion, non-tender 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: 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-XII 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 Intake and Output 11/30/17 12/01/17 19:00 07:00 Intake Total 360 ml Output Total 700 ml 1000 ml Balance -340 ml -1000 ml Intake Oral 360 ml Output Urine Total 700 ml 1000 ml # Bowel Movements 1 Laboratory Tests Test 12/01/17 08:45 White Blood Count 8.5 K/UL (4.8-10.8) Red Blood Count 4.36 M/UL (4.20-5.40) Hemoglobin 11.2 G/DL (12.0-16.0) L Hematocrit 36.2 % (37.0-47.0) L Mean Corpuscular Volume 83 FL (80-99) Mean Corpuscular Hemoglobin 25.7 PG (27.0-31.0) L Mean Corpuscular Hemoglobin Concent 30.9 G/DL (32.0-36.0) L Red Cell Distribution Width 14.6 % (11.6-14.8) Platelet Count 233 K/UL (150-450) Mean Platelet Volume 9.2 FL (6.5-10.1) Neutrophils (%) (Auto) 64.4 % (45.0-75.0) Lymphocytes (%) (Auto) 19.4 % (20.0-45.0) L Monocytes (%) (Auto) 11.0 % (1.0-10.0) H Eosinophils (%) (Auto) 4.7 % (0.0-3.0) H Basophils (%) (Auto) 0.5 % (0.0-2.0) Sodium Level 142 MMOL/L (136-145) Potassium Level 4.3 MMOL/L (3.5-5.1) Chloride Level 107 MMOL/L (98-107) Carbon Dioxide Level 30 MMOL/L (21-32) Anion Gap 5 mmol/L (5-15) Blood Urea Nitrogen 49 mg/dL (7-18) H Creatinine 1.6 MG/DL (0.55-1.30) H Estimat Glomerular Filtration Rate 31.8 mL/min (>60) Glucose Level 298 MG/DL (74-106) #H Calcium Level 8.5 MG/DL (8.5-10.1) Total Bilirubin 0.3 MG/DL (0.2-1.0) Aspartate Amino Transf (AST/SGOT) 14 U/L (15-37) L Alanine Aminotransferase (ALT/SGPT) 14 U/L (12-78) Alkaline Phosphatase 119 U/L (46-116) H Pro-B-Type Natriuretic Peptide 1583 pg/mL (0-125) H Total Protein 7.4 G/DL (6.4-8.2) Albumin 2.7 G/DL (3.4-5.0) L Globulin 4.7 g/dL Albumin/Globulin Ratio 0.6 (1.0-2.7) L Jose Luis Suarez M.D. Dec 01, 2017 16:29
--- NOTE | 2017-12-01 18:44 | Internal Med Progress Note ---
Subjective Date of Service: Dec 01, 2017 Physician Name Ash Li Attending Physician Brendan Wright MD Current Medications Medications (Trade) Dose Ordered Sig/[place] Route PRN Reason Start Time Stop Time Status Last Admin Dose Admin Acetaminophen (Tylenol) 650 mg Q4H PRN ORAL Fever 11/28/17 06:15 12/28/17 06:14 11/30/17 20:34 Albuterol/ Ipratropium (Albuterol/ Ipratropium) 3 ml Q4H PRN HHN Shortness of Breath 11/28/17 06:15 12/03/17 06:14 Atorvastatin Calcium (Lipitor) 40 mg BEDTIME ORAL 11/28/17 21:00 12/28/17 20:59 11/30/17 20:33 Carvedilol (Coreg) 6.25 mg EVERY 12 HOURS ORAL 11/28/17 10:30 12/28/17 10:29 11/30/17 20:33 Clopidogrel Bisulfate (Plavix) 75 mg DAILY ORAL 11/28/17 09:00 12/28/17 08:59 12/01/17 09:18 Dextrose (Dextrose 50%) STAT PRN IV Hypoglycemia 11/28/17 06:15 12/28/17 06:14 Digoxin (Lanoxin) 0.25 mg DAILY ORAL 11/28/17 09:00 12/28/17 08:59 12/01/17 09:17 Gabapentin (Neurontin) 300 mg DAILY ORAL 11/29/17 09:00 12/29/17 08:59 12/01/17 09:17 Heparin Sodium (Porcine) (Heparin 5000 units/ml) 5,000 units EVERY 12 HOURS SUBQ 11/28/17 09:00 12/28/17 08:59 12/01/17 09:20 Hydralazine HCl (Apresoline) 25 mg EVERY 8 HOURS ORAL 12/01/17 22:00 12/31/17 21:59 Insulin Aspart (NovoLOG) BEFORE MEALS AND HS SUBQ 11/28/17 06:30 12/28/17 06:29 12/01/17 17:01 Isosorbide Dinitrate (Isordil) 10 mg EVERY 8 HOURS ORAL 12/01/17 22:00 12/31/17 21:59 Ondansetron HCl (Zofran) 4 mg Q6H PRN IVP Nausea & Vomiting 11/28/17 06:15 12/28/17 06:14 Polyethylene Glycol (Miralax) 17 gm DAILYPRN PRN ORAL Constipation 11/28/17 06:15 12/28/17 06:14 Pregabalin (Lyrica) 50 mg BID ORAL 11/28/17 09:00 12/28/17 08:59 12/01/17 17:31 Temazepam (Restoril) 15 mg HSPRN PRN ORAL Insomnia 11/28/17 06:15 12/05/17 06:14 Allergies: Coded Allergies: No Known Allergies (Unverified , 12/18/16) ROS Limited/Unobtainable: No Constitutional: Reports: no symptoms HEENT: Reports: no symptoms Cardiovascular: Reports: no symptoms Respiratory: Reports: shortness of breath Gastrointestinal/Abdominal: Reports: no symptoms Genitourinary: Reports: no symptoms 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: Reports: no symptoms Subjective 72 YO F admitted with shortness of breath and edema. Now acute on chronic congestive heart failure. Cover for Int Med-Dr Wright. Objective Last Vital Signs Date Time Temp Pulse Resp B/P (MAP) Pulse Ox O2 Delivery O2 Flow Rate FiO2 12/01/17 16:00 97.3 75 20 132/54 97 Nasal Cannula 2.0 97.3 12/01/17 10:58 21 Laboratory Tests Test 12/01/17 08:45 White Blood Count 8.5 K/UL (4.8-10.8) Red Blood Count 4.36 M/UL (4.20-5.40) Hemoglobin 11.2 G/DL (12.0-16.0) L Hematocrit 36.2 % (37.0-47.0) L Mean Corpuscular Volume 83 FL (80-99) Mean Corpuscular Hemoglobin 25.7 PG (27.0-31.0) L Mean Corpuscular Hemoglobin Concent 30.9 G/DL (32.0-36.0) L Red Cell Distribution Width 14.6 % (11.6-14.8) Platelet Count 233 K/UL (150-450) Mean Platelet Volume 9.2 FL (6.5-10.1) Neutrophils (%) (Auto) 64.4 % (45.0-75.0) Lymphocytes (%) (Auto) 19.4 % (20.0-45.0) L Monocytes (%) (Auto) 11.0 % (1.0-10.0) H Eosinophils (%) (Auto) 4.7 % (0.0-3.0) H Basophils (%) (Auto) 0.5 % (0.0-2.0) Sodium Level 142 MMOL/L (136-145) Potassium Level 4.3 MMOL/L (3.5-5.1) Chloride Level 107 MMOL/L (98-107) Carbon Dioxide Level 30 MMOL/L (21-32) Anion Gap 5 mmol/L (5-15) Blood Urea Nitrogen 49 mg/dL (7-18) H Creatinine 1.6 MG/DL (0.55-1.30) H Estimat Glomerular Filtration Rate 31.8 mL/min (>60) Glucose Level 298 MG/DL (74-106) #H Calcium Level 8.5 MG/DL (8.5-10.1) Total Bilirubin 0.3 MG/DL (0.2-1.0) Aspartate Amino Transf (AST/SGOT) 14 U/L (15-37) L Alanine Aminotransferase (ALT/SGPT) 14 U/L (12-78) Alkaline Phosphatase 119 U/L (46-116) H Pro-B-Type Natriuretic Peptide 1583 pg/mL (0-125) H Total Protein 7.4 G/DL (6.4-8.2) Albumin 2.7 G/DL (3.4-5.0) L Globulin 4.7 g/dL Albumin/Globulin Ratio 0.6 (1.0-2.7) L Intake and Output 11/30/17 12/01/17 19:00 07:00 Intake Total 360 ml Output Total 700 ml 1000 ml Balance -340 ml -1000 ml Intake Oral 360 ml Output Urine Total 700 ml 1000 ml # Bowel Movements 1 Objective General Appearance: WD/WN, alert, mild distress EENT: PERRL/EOMI, normal ENT inspection Neck: non-tender, normal alignment, supple, normal inspection Cardiovascular: normal peripheral pulses, normal rate, regular rhythm, no gallop/murmur, no JVD Respiratory/Chest: chest wall non-tender, no accessory muscle use, crackles/ rales, rhonchi - bilaterally, expiratory wheezing Abdomen: normal bowel sounds, non tender, soft, no organomegaly, no mass Extremities: normal range of motion, normal inspection Edema: mild edema 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 (2) Acute CHF Assessment & Plan: LVEF=30%. See cardiology recs. (3) Shortness of breath (4) Hypertension Assessment & Plan: Continue cozaar and coreg per cardiology (5) Diabetes mellitus Assessment & Plan: Continue novolog sliding scale. (6) Hemiplegia affecting right dominant side (7) Cerebral vascular disease Status: not improved Ash Li MD Dec 01, 2017 18:44
[2017-12-01 20:00] VITALS: BP 126/68
[2017-12-01] MEDS: Atorvastatin 20mg tab ORAL SCH (21:17)
[2017-12-01] MEDS: HydrALAZINE 25mg tab ORAL SCH (22:05)
--- NOTE | 2017-12-01 23:09 | General Progress Note ---
Assessment/Plan Assessment/Plan MDD cognitive impairment -low dose of ssri Subjective Date patient seen: Dec 01, 2017 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: Reports: anxiety, depressed Allergies: Coded Allergies: No Known Allergies (Unverified , 12/18/16) Objective Last 24 Hour Vital Signs Date Time Temp Pulse Resp B/P (MAP) Pulse Ox O2 Delivery O2 Flow Rate FiO2 12/01/17 22:05 128/65 12/01/17 22:05 128/65 12/01/17 21:17 84 126/68 12/01/17 20:23 71 20 Room Air 21 12/01/17 20:00 83 12/01/17 20:00 97.5 80 20 126/68 97 Nasal Cannula 2.0 97.5 12/01/17 16:00 97.3 75 20 132/54 97 Nasal Cannula 2.0 97.3 12/01/17 15:18 75 12/01/17 12:00 97.5 78 20 123/50 95 Nasal Cannula 2.0 97.5 12/01/17 11:44 70 12/01/17 10:58 75 20 Room Air 21 12/01/17 09:17 71 12/01/17 09:00 103/56 12/01/17 09:00 71 103/56 12/01/17 08:00 97.4 71 20 103/56 100 Nasal Cannula 2.0 97.4 12/01/17 07:45 72 12/01/17 04:00 97.0 74 20 124/58 98 Nasal Cannula 2.0 97.0 12/01/17 04:00 75 12/01/17 00:00 97.2 89 22 144/61 97 Nasal Cannula 2.0 97.2 12/01/17 00:00 89 Intake and Output 11/30/17 12/01/17 19:00 07:00 Intake Total 360 ml Output Total 700 ml 1000 ml Balance -340 ml -1000 ml Intake Oral 360 ml Output Urine Total 700 ml 1000 ml # Bowel Movements 1 Laboratory Tests 12/01/17 08:45: White Blood Count 8.5, Red Blood Count 4.36, Hemoglobin 11.2L, Hematocrit 36.2L , Mean Corpuscular Volume 83, Mean Corpuscular Hemoglobin 25.7L, Mean Corpuscular Hemoglobin Concent 30.9L, Red Cell Distribution Width 14.6, Platelet Count 233, Mean Platelet Volume 9.2, Neutrophils (%) (Auto) 64.4, Lymphocytes (%) (Auto) 19.4L, Monocytes (%) (Auto) 11.0H, Eosinophils (%) (Auto ) 4.7H, Basophils (%) (Auto) 0.5, Sodium Level 142, Potassium Level 4.3, Chloride Level 107, Carbon Dioxide Level 30, Anion Gap 5, Blood Urea Nitrogen 49H, Creatinine 1.6H, Estimat Glomerular Filtration Rate 31.8, Glucose Level 298 #H, Calcium Level 8.5, Total Bilirubin 0.3, Aspartate Amino Transf (AST/SGOT) 14L, Alanine Aminotransferase (ALT/SGPT) 14, Alkaline Phosphatase 119H, Pro-B- Type Natriuretic Peptide 1583H, Total Protein 7.4, Albumin 2.7L, Globulin 4.7, Albumin/Globulin Ratio 0.6L Height (Feet): 5 Height (Inches): 1.00 Weight (Pounds): 182 Teresa Douglas M.D. Dec 01, 2017 23:09
[2017-12-02] VITALS: BP 112/49
[2017-12-02 04:00] VITALS: BP 126/64
[2017-12-02] MEDS: HydrALAZINE 25mg tab ORAL SCH ×2 (05:35→15:24)
[2017-12-02] MEDS: NovoLOG Insulin Flexpen SUBQ SCH ×3 (05:56→16:53)
[2017-12-02 07:08] LABS: BASOPHILS % (AUTO) 1.1 % (0.0-2.0); HEMATOCRIT 35.5 % (37.0-47.0); HEMOGLOBIN 10.9 G/DL (12.0-16.0); LYMPHOCYTES % (AUTO) 18.4 % (20.0-45.0); MEAN CORPUSCULAR VOLUME 85 FL (80-99); MONOCYTES % (AUTO) 8.1 % (1.0-10.0); NEUTROPHILS % (AUTO) 68.4 % (45.0-75.0); PLATELET COUNT 212 K/UL (150-450); RED BLOOD COUNT 4.19 M/UL (4.20-5.40); RED CELL DISTRIBUTION WIDTH 14.8 % (11.6-14.8); WHITE BLOOD COUNT 9.9 K/UL (4.8-10.8)
[2017-12-02 07:20] LABS: ANION GAP 8 mmol/L (5-15); BLOOD UREA NITROGEN 49 mg/dL (7-18); CALCIUM 9.2 MG/DL (8.5-10.1); CARBON DIOXIDE 26 MMOL/L (21-32); CHLORIDE 106 MMOL/L (98-107); CREATININE 1.3 MG/DL (0.55-1.30); POTASSIUM 5.6 MMOL/L (3.5-5.1); SODIUM 140 MMOL/L (136-145)
[2017-12-02 08:00] VITALS: BP 120/42
[2017-12-02] MEDS: Heparin 5000 units/ml inj SUBQ SCH (09:04)
[2017-12-02] MEDS: Carvedilol 6.25mg Tab ORAL SCH (09:05)
[2017-12-02] MEDS: Lyrica 50mg cap ORAL SCH (09:05)
[2017-12-02 12:00] VITALS: BP 134/64
--- NOTE | 2017-12-02 13:11 | Pulmonology Progress Note ---
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 bun/creatinine better today check electrolytes echo reviewed cardio note reviewed symptomatic treatment Subjective ROS Limited/Unobtainable: No HEENT: Repors: no symptoms Respiratory: Reports: no symptoms Allergies: Coded Allergies: No Known Allergies (Unverified , 12/18/16) Objective Last 24 Hour Vital Signs Date Time Temp Pulse Resp B/P (MAP) Pulse Ox O2 Delivery O2 Flow Rate FiO2 12/02/17 12:00 97.1 82 18 134/64 94 Room Air 97.1 12/02/17 11:56 83 12/02/17 09:05 74 120/42 12/02/17 09:04 74 12/02/17 08:20 74 18 Room Air 21 12/02/17 08:00 98.4 84 18 120/42 98 Room Air 98.4 12/02/17 07:53 85 12/02/17 05:35 135/61 12/02/17 05:35 135/61 12/02/17 04:00 78 12/02/17 04:00 98.4 86 22 126/64 98 Room Air 98.4 12/02/17 00:00 98.0 84 20 112/49 94 Room Air 98.0 12/02/17 00:00 82 12/01/17 22:05 128/65 12/01/17 22:05 128/65 12/01/17 21:17 84 126/68 12/01/17 20:23 71 20 Room Air 21 12/01/17 20:00 83 12/01/17 20:00 97.5 80 20 126/68 97 Nasal Cannula 2.0 97.5 12/01/17 16:00 97.3 75 20 132/54 97 Nasal Cannula 2.0 97.3 12/01/17 15:18 75 Intake and Output 12/01/17 12/02/17 19:00 07:00 Intake Total 480 ml 100 ml Output Total 700 ml Balance -220 ml 100 ml Intake Oral 480 ml 100 ml Output Urine Total 700 ml # Bowel Movements 1 1 General Appearance: WD/WN HEENT: normocephalic, atraumatic Respiratory/Chest: chest wall non-tender Breasts: no masses Cardiovascular: normal peripheral pulses Abdomen: normal bowel sounds, soft, non tender Skin: no rash 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 Laboratory Tests 12/02/17 06:10: White Blood Count 9.9, Red Blood Count 4.19L, Hemoglobin 10.9L, Hematocrit 35.5L , Mean Corpuscular Volume 85, Mean Corpuscular Hemoglobin 26.1L, Mean Corpuscular Hemoglobin Concent 30.8L, Red Cell Distribution Width 14.8, Platelet Count 212, Mean Platelet Volume 8.6, Neutrophils (%) (Auto) 68.4, Lymphocytes (%) (Auto) 18.4L, Monocytes (%) (Auto) 8.1, Eosinophils (%) (Auto) 4.0H, Basophils (%) (Auto) 1.1, Sodium Level 140, Potassium Level 5.6H, Chloride Level 106, Carbon Dioxide Level 26, Anion Gap 8, Blood Urea Nitrogen 49H, Creatinine 1.3, Estimat Glomerular Filtration Rate 40.5, Glucose Level 261H , Calcium Level 9.2 12/02/17 11:00: Potassium Level 4.9 Current Medications Medications (Trade) Dose Ordered Sig/[place] Route PRN Reason Start Time Stop Time Status Last Admin Dose Admin Acetaminophen (Tylenol) 650 mg Q4H PRN ORAL Fever 11/28/17 06:15 12/28/17 06:14 11/30/17 20:34 Albuterol/ Ipratropium (Albuterol/ Ipratropium) 3 ml Q4H PRN HHN Shortness of Breath 11/28/17 06:15 12/03/17 06:14 Atorvastatin Calcium (Lipitor) 40 mg BEDTIME ORAL 11/28/17 21:00 12/28/17 20:59 12/01/17 21:17 Carvedilol (Coreg) 6.25 mg EVERY 12 HOURS ORAL 11/28/17 10:30 12/28/17 10:29 12/02/17 09:05 Clopidogrel Bisulfate (Plavix) 75 mg DAILY ORAL 11/28/17 09:00 12/28/17 08:59 12/02/17 09:04 Dextrose (Dextrose 50%) STAT PRN IV Hypoglycemia 11/28/17 06:15 12/28/17 06:14 Digoxin (Lanoxin) 0.25 mg DAILY ORAL 11/28/17 09:00 12/28/17 08:59 12/02/17 09:04 Gabapentin (Neurontin) 300 mg DAILY ORAL 11/29/17 09:00 12/29/17 08:59 12/02/17 09:05 Heparin Sodium (Porcine) (Heparin 5000 units/ml) 5,000 units EVERY 12 HOURS SUBQ 11/28/17 09:00 12/28/17 08:59 12/02/17 09:04 Hydralazine HCl (Apresoline) 25 mg EVERY 8 HOURS ORAL 12/01/17 22:00 12/31/17 21:59 12/02/17 05:35 Insulin Aspart (NovoLOG) BEFORE MEALS AND HS SUBQ 11/28/17 06:30 12/28/17 06:29 12/02/17 11:45 Isosorbide Dinitrate (Isordil) 10 mg EVERY 8 HOURS ORAL 12/01/17 22:00 12/31/17 21:59 12/02/17 05:35 Ondansetron HCl (Zofran) 4 mg Q6H PRN IVP Nausea & Vomiting 11/28/17 06:15 12/28/17 06:14 Polyethylene Glycol (Miralax) 17 gm DAILYPRN PRN ORAL Constipation 11/28/17 06:15 12/28/17 06:14 Pregabalin (Lyrica) 50 mg BID ORAL 11/28/17 09:00 12/28/17 08:59 12/02/17 09:05 Temazepam (Restoril) 15 mg HSPRN PRN ORAL Insomnia 11/28/17 06:15 12/05/17 06:14 Ida Nolen MD Dec 02, 2017 13:11
--- NOTE | 2017-12-02 13:22 | Cardiology Progress Note ---
Assessment/Plan Status: stable Assessment/Plan 2D echo reviewed, severe systolic dysfunction and severe mitral regurgitation -Continue beta dayna with goal heart rate 60 to reduce regurgitant volume -MR appears functional, recommend outpatient follow up to arrange mitraclip evaluation -Continue isordil/hydralazine for preload/afterload reduction -Lasix on hold due to rising creatinine, once stable keep on maintenance 20 mg daily to reduce filling pressures EKG with A sensed V paced - normally functioning -BNP improved -ABx for UTI/urosepsis Subjective Cardiovascular: Reports: no symptoms Respiratory: Reports: no symptoms Gastrointestinal/Abdominal: Reports: no symptoms Genitourinary: Reports: no symptoms Subjective CXR shows interval improvement in congestion. Now clear today Vitals stable, no chest pain, breathing unlabored BUN creatinine improved today BP stable on isoril/hydralazine Urine positive for ESBL BNP improved Objective Last 24 Hour Vital Signs Date Time Temp Pulse Resp B/P (MAP) Pulse Ox O2 Delivery O2 Flow Rate FiO2 12/02/17 12:00 97.1 82 18 134/64 94 Room Air 97.1 12/02/17 11:56 83 12/02/17 09:05 74 120/42 12/02/17 09:04 74 12/02/17 08:20 74 18 Room Air 21 12/02/17 08:00 98.4 84 18 120/42 98 Room Air 98.4 12/02/17 07:53 85 12/02/17 05:35 135/61 12/02/17 05:35 135/61 12/02/17 04:00 78 12/02/17 04:00 98.4 86 22 126/64 98 Room Air 98.4 12/02/17 00:00 98.0 84 20 112/49 94 Room Air 98.0 12/02/17 00:00 82 12/01/17 22:05 128/65 12/01/17 22:05 128/65 12/01/17 21:17 84 126/68 12/01/17 20:23 71 20 Room Air 21 12/01/17 20:00 83 12/01/17 20:00 97.5 80 20 126/68 97 Nasal Cannula 2.0 97.5 12/01/17 16:00 97.3 75 20 132/54 97 Nasal Cannula 2.0 97.3 12/01/17 15:18 75 General Appearance: no apparent distress EENT: PERRL/EOMI Neck: non-tender Rhythm: NSR Cardiovascular: normal peripheral pulses Respiratory/Chest: chest wall non-tender Abdomen: normal bowel sounds Extremities: normal range of motion Neurologic: pelts skinner II-XII 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 Intake and Output 12/01/17 12/02/17 19:00 07:00 Intake Total 480 ml 100 ml Output Total 700 ml Balance -220 ml 100 ml Intake Oral 480 ml 100 ml Output Urine Total 700 ml # Bowel Movements 1 1 Laboratory Tests Test 12/02/17 06:10 12/02/17 11:00 White Blood Count 9.9 K/UL (4.8-10.8) Red Blood Count 4.19 M/UL (4.20-5.40) L Hemoglobin 10.9 G/DL (12.0-16.0) L Hematocrit 35.5 % (37.0-47.0) L Mean Corpuscular Volume 85 FL (80-99) Mean Corpuscular Hemoglobin 26.1 PG (27.0-31.0) L Mean Corpuscular Hemoglobin Concent 30.8 G/DL (32.0-36.0) L Red Cell Distribution Width 14.8 % (11.6-14.8) Platelet Count 212 K/UL (150-450) Mean Platelet Volume 8.6 FL (6.5-10.1) Neutrophils (%) (Auto) 68.4 % (45.0-75.0) Lymphocytes (%) (Auto) 18.4 % (20.0-45.0) L Monocytes (%) (Auto) 8.1 % (1.0-10.0) Eosinophils (%) (Auto) 4.0 % (0.0-3.0) H Basophils (%) (Auto) 1.1 % (0.0-2.0) Sodium Level 140 MMOL/L (136-145) Potassium Level 5.6 MMOL/L (3.5-5.1) H 4.9 MMOL/L (3.5-5.1) Chloride Level 106 MMOL/L (98-107) Carbon Dioxide Level 26 MMOL/L (21-32) Anion Gap 8 mmol/L (5-15) Blood Urea Nitrogen 49 mg/dL (7-18) H Creatinine 1.3 MG/DL (0.55-1.30) Estimat Glomerular Filtration Rate 40.5 mL/min (>60) Glucose Level 261 MG/DL (74-106) H Calcium Level 9.2 MG/DL (8.5-10.1) Jose Luis Suarez M.D. Dec 02, 2017 13:21
--- NOTE | 2017-12-02 13:30 | Infectious Diseases Prog Note ---
Assessment/Plan Assessment/Plan A: B/l LE edema- no signs of cellulitis Leukocytosis, SP -afebrile -CXR: There is generalized interstitial congestion, less severe than that seen previously. There is evidence of pleural fluid on the left. 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 COPD DM2 appendectomy HTN morbid obesity systolic heart failure CVA w/ R hemiparesis cervical CA s/p KENA iron def anemia valvular heart disease Plan: -Continue monitor off abx -will not treat ESBL in urine unless symptomatic, febrile and/or leukocytosis 11/29 SP Cefepime #2 08/13 SP Zithromax and Rocephin day # 6 08/09/17 SP Flagyl day #2 -Monitor CBC/BMP, temperatures -aspiration precautions Subjective Constitutional: Denies: no symptoms, fever, chills, fatigue, anorexia, drenching sweats, other Allergies: Coded Allergies: No Known Allergies (Unverified , 12/18/16) Objective Vital Signs Last 24 Hour Vital Signs Date Time Temp Pulse Resp B/P (MAP) Pulse Ox O2 Delivery O2 Flow Rate FiO2 12/02/17 12:00 97.1 82 18 134/64 94 Room Air 97.1 12/02/17 11:56 83 12/02/17 09:05 74 120/42 12/02/17 09:04 74 12/02/17 08:20 74 18 Room Air 21 12/02/17 08:00 98.4 84 18 120/42 98 Room Air 98.4 12/02/17 07:53 85 12/02/17 05:35 135/61 12/02/17 05:35 135/61 12/02/17 04:00 78 12/02/17 04:00 98.4 86 22 126/64 98 Room Air 98.4 12/02/17 00:00 98.0 84 20 112/49 94 Room Air 98.0 12/02/17 00:00 82 6/22/18 22:05 128/65 12/01/17 22:05 128/65 12/01/17 21:17 84 126/68 12/01/17 20:23 71 20 Room Air 21 12/01/17 20:00 83 12/01/17 20:00 97.5 80 20 126/68 97 Nasal Cannula 2.0 97.5 12/01/17 16:00 97.3 75 20 132/54 97 Nasal Cannula 2.0 97.3 12/01/17 15:18 75 Height (Feet): 5 Height (Inches): 1.00 Weight (Pounds): 180 HEENT: anicteric Respiratory/Chest: no respiratory distress Cardiovascular: normal rate Abdomen: normal bowel sounds Laboratory Tests Test 12/02/17 06:10 12/02/17 11:00 White Blood Count 9.9 K/UL (4.8-10.8) Red Blood Count 4.19 M/UL (4.20-5.40) L Hemoglobin 10.9 G/DL (12.0-16.0) L Hematocrit 35.5 % (37.0-47.0) L Mean Corpuscular Volume 85 FL (80-99) Mean Corpuscular Hemoglobin 26.1 PG (27.0-31.0) L Mean Corpuscular Hemoglobin Concent 30.8 G/DL (32.0-36.0) L Red Cell Distribution Width 14.8 % (11.6-14.8) Platelet Count 212 K/UL (150-450) Mean Platelet Volume 8.6 FL (6.5-10.1) Neutrophils (%) (Auto) 68.4 % (45.0-75.0) Lymphocytes (%) (Auto) 18.4 % (20.0-45.0) L Monocytes (%) (Auto) 8.1 % (1.0-10.0) Eosinophils (%) (Auto) 4.0 % (0.0-3.0) H Basophils (%) (Auto) 1.1 % (0.0-2.0) Sodium Level 140 MMOL/L (136-145) Potassium Level 5.6 MMOL/L (3.5-5.1) H 4.9 MMOL/L (3.5-5.1) Chloride Level 106 MMOL/L (98-107) Carbon Dioxide Level 26 MMOL/L (21-32) Anion Gap 8 mmol/L (5-15) Blood Urea Nitrogen 49 mg/dL (7-18) H Creatinine 1.3 MG/DL (0.55-1.30) Estimat Glomerular Filtration Rate 40.5 mL/min (>60) Glucose Level 261 MG/DL (74-106) H Calcium Level 9.2 MG/DL (8.5-10.1) Current Medications Medications (Trade) Dose Ordered Sig/[place] Route PRN Reason Start Time Stop Time Status Last Admin Dose Admin Acetaminophen (Tylenol) 650 mg Q4H PRN ORAL Fever 11/28/17 06:15 12/28/17 06:14 11/30/17 20:34 Albuterol/ Ipratropium (Albuterol/ Ipratropium) 3 ml Q4H PRN HHN Shortness of Breath 11/28/17 06:15 12/03/17 06:14 Atorvastatin Calcium (Lipitor) 40 mg BEDTIME ORAL 11/28/17 21:00 12/28/17 20:59 12/01/17 21:17 Carvedilol (Coreg) 6.25 mg EVERY 12 HOURS ORAL 11/28/17 10:30 12/28/17 10:29 12/02/17 09:05 Clopidogrel Bisulfate (Plavix) 75 mg DAILY ORAL 11/28/17 09:00 12/28/17 08:59 12/02/17 09:04 Dextrose (Dextrose 50%) STAT PRN IV Hypoglycemia 11/28/17 06:15 12/28/17 06:14 Digoxin (Lanoxin) 0.25 mg DAILY ORAL 11/28/17 09:00 12/28/17 08:59 12/02/17 09:04 Gabapentin (Neurontin) 300 mg DAILY ORAL 11/29/17 09:00 12/29/17 08:59 12/02/17 09:05 Heparin Sodium (Porcine) (Heparin 5000 units/ml) 5,000 units EVERY 12 HOURS SUBQ 11/28/17 09:00 12/28/17 08:59 12/02/17 09:04 Hydralazine HCl (Apresoline) 25 mg EVERY 8 HOURS ORAL 12/01/17 22:00 12/31/17 21:59 12/02/17 05:35 Insulin Aspart (NovoLOG) BEFORE MEALS AND HS SUBQ 11/28/17 06:30 12/28/17 06:29 12/02/17 11:45 Isosorbide Dinitrate (Isordil) 10 mg EVERY 8 HOURS ORAL 12/01/17 22:00 12/31/17 21:59 12/02/17 05:35 Ondansetron HCl (Zofran) 4 mg Q6H PRN IVP Nausea & Vomiting 11/28/17 06:15 12/28/17 06:14 Polyethylene Glycol (Miralax) 17 gm DAILYPRN PRN ORAL Constipation 11/28/17 06:15 12/28/17 06:14 Pregabalin (Lyrica) 50 mg BID ORAL 11/28/17 09:00 12/28/17 08:59 12/02/17 09:05 Temazepam (Restoril) 15 mg HSPRN PRN ORAL Insomnia 11/28/17 06:15 12/05/17 06:14 Gumaro Haddad MD Dec 02, 2017 13:30
[2017-12-02 15:24] VITALS: BP 134/64
--- NOTE | 2017-12-02 16:27 | Internal Med Progress Note ---
Subjective Date of Service: Dec 02, 2017 Physician Name Ash Li Attending Physician Brendan Wright MD Current Medications Medications (Trade) Dose Ordered Sig/[place] Route PRN Reason Start Time Stop Time Status Last Admin Dose Admin Acetaminophen (Tylenol) 650 mg Q4H PRN ORAL Fever 11/28/17 06:15 12/28/17 06:14 11/30/17 20:34 Albuterol/ Ipratropium (Albuterol/ Ipratropium) 3 ml Q4H PRN HHN Shortness of Breath 11/28/17 06:15 12/03/17 06:14 Atorvastatin Calcium (Lipitor) 40 mg BEDTIME ORAL 11/28/17 21:00 12/28/17 20:59 12/01/17 21:17 Carvedilol (Coreg) 6.25 mg EVERY 12 HOURS ORAL 11/28/17 10:30 12/28/17 10:29 12/02/17 09:05 Clopidogrel Bisulfate (Plavix) 75 mg DAILY ORAL 11/28/17 09:00 12/28/17 08:59 12/02/17 09:04 Dextrose (Dextrose 50%) STAT PRN IV Hypoglycemia 11/28/17 06:15 12/28/17 06:14 Digoxin (Lanoxin) 0.25 mg DAILY ORAL 11/28/17 09:00 12/28/17 08:59 12/02/17 09:04 Gabapentin (Neurontin) 300 mg DAILY ORAL 11/29/17 09:00 12/29/17 08:59 12/02/17 09:05 Heparin Sodium (Porcine) (Heparin 5000 units/ml) 5,000 units EVERY 12 HOURS SUBQ 11/28/17 09:00 12/28/17 08:59 12/02/17 09:04 Hydralazine HCl (Apresoline) 25 mg EVERY 8 HOURS ORAL 12/01/17 22:00 12/31/17 21:59 12/02/17 15:24 Insulin Aspart (NovoLOG) BEFORE MEALS AND HS SUBQ 11/28/17 06:30 12/28/17 06:29 12/02/17 11:45 Isosorbide Dinitrate (Isordil) 10 mg EVERY 8 HOURS ORAL 12/01/17 22:00 12/31/17 21:59 12/02/17 15:24 Ondansetron HCl (Zofran) 4 mg Q6H PRN IVP Nausea & Vomiting 11/28/17 06:15 12/28/17 06:14 Polyethylene Glycol (Miralax) 17 gm DAILYPRN PRN ORAL Constipation 11/28/17 06:15 12/28/17 06:14 Pregabalin (Lyrica) 50 mg BID ORAL 11/28/17 09:00 12/28/17 08:59 12/02/17 09:05 Temazepam (Restoril) 15 mg HSPRN PRN ORAL Insomnia 11/28/17 06:15 12/05/17 06:14 Allergies: Coded Allergies: No Known Allergies (Unverified , 12/18/16) ROS Limited/Unobtainable: No Constitutional: Reports: no symptoms HEENT: Reports: no symptoms Cardiovascular: Reports: no symptoms Respiratory: Reports: shortness of breath Gastrointestinal/Abdominal: Reports: no symptoms Genitourinary: Reports: no symptoms 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: Reports: no symptoms Subjective 72 YO F admitted with shortness of breath and edema. Now acute on chronic congestive heart failure. Cover for Int Med-Dr Wright. Objective Last Vital Signs Date Time Temp Pulse Resp B/P (MAP) Pulse Ox O2 Delivery O2 Flow Rate FiO2 12/02/17 15:24 134/64 12/02/17 12:00 97.1 82 18 94 Room Air 97.1 12/02/17 08:20 21 12/01/17 20:00 2.0 Laboratory Tests Test 12/02/17 06:10 12/02/17 11:00 White Blood Count 9.9 K/UL (4.8-10.8) Red Blood Count 4.19 M/UL (4.20-5.40) L Hemoglobin 10.9 G/DL (12.0-16.0) L Hematocrit 35.5 % (37.0-47.0) L Mean Corpuscular Volume 85 FL (80-99) Mean Corpuscular Hemoglobin 26.1 PG (27.0-31.0) L Mean Corpuscular Hemoglobin Concent 30.8 G/DL (32.0-36.0) L Red Cell Distribution Width 14.8 % (11.6-14.8) Platelet Count 212 K/UL (150-450) Mean Platelet Volume 8.6 FL (6.5-10.1) Neutrophils (%) (Auto) 68.4 % (45.0-75.0) Lymphocytes (%) (Auto) 18.4 % (20.0-45.0) L Monocytes (%) (Auto) 8.1 % (1.0-10.0) Eosinophils (%) (Auto) 4.0 % (0.0-3.0) H Basophils (%) (Auto) 1.1 % (0.0-2.0) Sodium Level 140 MMOL/L (136-145) Potassium Level 5.6 MMOL/L (3.5-5.1) H 4.9 MMOL/L (3.5-5.1) Chloride Level 106 MMOL/L (98-107) Carbon Dioxide Level 26 MMOL/L (21-32) Anion Gap 8 mmol/L (5-15) Blood Urea Nitrogen 49 mg/dL (7-18) H Creatinine 1.3 MG/DL (0.55-1.30) Estimat Glomerular Filtration Rate 40.5 mL/min (>60) Glucose Level 261 MG/DL (74-106) H Calcium Level 9.2 MG/DL (8.5-10.1) Intake and Output 12/01/17 12/02/17 19:00 07:00 Intake Total 480 ml 100 ml Output Total 700 ml Balance -220 ml 100 ml Intake Oral 480 ml 100 ml Output Urine Total 700 ml # Bowel Movements 1 1 Objective General Appearance: WD/WN, alert, mild distress EENT: PERRL/EOMI, normal ENT inspection Neck: non-tender, normal alignment, supple, normal inspection Cardiovascular: normal peripheral pulses, normal rate, regular rhythm, no gallop/murmur, no JVD Respiratory/Chest: chest wall non-tender, no accessory muscle use, crackles/ rales, rhonchi - bilaterally, expiratory wheezing Abdomen: normal bowel sounds, non tender, soft, no organomegaly, no mass Extremities: normal range of motion, normal inspection Edema: mild edema Neurologic: steam finisher II-XII 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, no motor/sensory deficits Skin: normal pigmentation, warm/dry Assessment/Plan Problem List: (1) COPD (chronic obstructive pulmonary disease) Assessment & Plan: See pulmonary note. (2) Acute CHF Assessment & Plan: LVEF=30%. See cardiology recs. (3) Shortness of breath (4) Hypertension Assessment & Plan: Continue cozaar and coreg per cardiology (5) Diabetes mellitus Assessment & Plan: Continue novolog sliding scale. (6) Hemiplegia affecting right dominant side (7) Cerebral vascular disease Status: progressing Ash Li MD Dec 02, 2017 16:27
--- NOTE | 2017-12-03 22:17 | Diagnostic Imaging Report ---
APPROVED REPORT CPT Code: 86936 Present Symptoms Lower Extremity Pain: Right Comments: R/O DVT BILATERAL: Imaging reveals a patent deep venous system bilaterally. There is no evidence of thrombus within the femoral, popliteal or tibial segments. The greater saphenous veins are also within normal limits. Doppler indicates normal spontaneous flow within these segments.
--- NOTE | 2017-12-04 12:24 | General Progress Note ---
Assessment/Plan Assessment/Plan MDD cognitive impairment -low dose of ssri Subjective Date patient seen: Dec 02, 2017 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: Reports: anxiety, depressed Allergies: Coded Allergies: No Known Allergies (Unverified , 12/18/16) Objective Height (Feet): 5 Height (Inches): 1.00 Weight (Pounds): 180 Teresa Douglas M.D. Dec 04, 2017 12:24
--- NOTE | 2017-12-04 15:20 | Discharge Summary ---
Discharge Summary Discharge Summary _ DATE OF ADMISSION: 11/28/2017 DATE OF DISCHARGE: 12/02/2017 REASON FOR ADMISSION: 72 years old female with past medical history significant for CVA with right hemiparesis, congestive heart failure, AICD, history of NE in 2016, history of cervical cancer in 2016, COPD, diabetes mellitus, presented to emergency room with shortness of breath and bilateral lower extremity swelling for the last the 4 days. Shortness of breath worse with exertion and better with rest. No chest pain No fever, no chills No nausea, no vomiting . Vital signs were stable. EKG revealed normal sinus rhythm, no acute ischemic changes. Troponin negative , proBNP- 3088. Chest x-ray revealed cardiomegaly with congestive heart failure. Mild leukocytosis, WBC -11.4, mild anemia hemoglobin -11.5, hematocrit 36.7. BUN 37, creatinine 1.4 . Patient admitted with diagnoses acute on chronic CHF, dilated cardiomyopathy, cerebrovascular disease with history of CVA with right hemiparesis, diabetes mellitus type 2, diabetic nephropathy, hypertension, COPD, anemia, history of cervical cancer CONSULTANTS: provisioning specialist Dr. Suarez pulmonary Dr. Nolen ID specialist Dr. Haddad psychiatrist [facility]SE: Patient admitted to telemetry floor. Cardiology consult was requested. Patient started on intravenous diuresis with close monitoring of cardiorenal parameters and volumes. Echocardiogram revealed ejection fraction of 25-30% with global left ventricular hypokinesis. Severe mitral regurgitation. Moderate tricuspid regurgitation right ventricular systolic pressure of 45 consistent with mild pulmonary hypertension. Venous duplex bilateral lower extremity was negative. Director Loan closely followed. Per provisioning specialist patient had severe systolic dysfunction and severe mitral regurgitation. Anti-failure medication regimen continued with beta dayna,Digoxin, diuretic and combination of Isordil/hydralazine for preload/afterload reduction. EKG revealed A sensed V paced rhythm with normal functioning Pro BNP improving with diuresis. Follow up CXR showed improvement in interstitial congestion. However due to worsening creatinine, trending up to 1.6 , Lasix was held. r Per provisioning specialist, resumed Lasix when creatinine stable, with low-maintenance dose of 20 mg daily to reduce filling pressures. Antiplatelet therapy with Plavix was continued. Blood [id number] , stable on current regimen. DVT prophylaxis provided. Statin was continued. Commissioning Specialist closely followed. Pulmonary toilet provided as needed , oxygen titrated to keep pulse oximetry above 92% No evidence of COPD exacerbation, no signs of respiratory distress Infectious disease doctor closely followed. Urine culture revealed Escherichia coli. ESBL Per infectious disease specialist , patient had pyuria but no urinary symptoms and therefore patient had asymptomatic bacteriuria . Escherichia coli ESBL was colonizer and no treatment was necessary as per infectious disease specialist recommendations. No treatment for ESBL Escherichia coli was necessary, unless patient become symptomatic, febrile and with leukocytosis. Patient presented with bilateral lower extremity edema due to acute CHF, but no evidence of cellulitis Infectious disease doctor recommended to monitor patient off antibiotics. Blood culture were negative. Blood sugar was managed with sliding scale of insulin. Symptomatic treatment provided. Pain management was addressed. Neurontin and Lyrica were continued Bowel regimen instituted Hemoglobin and hematocrit were closely monitored with goal to keep hemoglobin above 7 ; hemoglobin and hematocrit remained at baseline. Psychiatrist closely followed. Psychiatrist diagnosed patient with major depression disorder and cognitive impairment. Patient started on low-dose of SSRI. Patient clinically improved and was stable for discharge home. FINAL DIAGNOSES: Acute on chronic systolic congestive heart failure Dilated cardiomyopathy with severe systolic dysfunction Severe mitral regurgitation Acute kidney injury Cerebrovascular disease with history of CVA with right hemiparesis Diabetic nephropathy Diabetes mellitus type 2 COPD Hypertension Morbid obesity Asymptomatic bacteriuria Bilateral lower extremity edema ( no evidence of cellulitis ) Anemia History of cervical cancer Major depressive disorder Cognitive impairment DISCHARGE MEDICATIONS: See Medication Reconciliation list. DISCHARGE INSTRUCTIONS: Patient was discharged home. Follow up with primary care provider in one week I have been assigned to dictate discharge summary for this account. I was not involved in the patient's management. Sari Carmona NP Dec 04, 2017 15:20
== END 2017-12-02 18:30 | disposition home or self-care (01) | DRG 292 ==
LOC: EMR 23:57 → EDBEDREQ 11-28 00:55 → 2E 11-28 01:00 → EDBEDREQ 11-28 01:18
DX: I11.0 Hypertensive heart disease with heart failure (principal); I69.351 Hemiplegia and hemiparesis following cerebral infarction affecting right dominant side; N17.9 Acute kidney failure, unspecified; I50.23 Acute on chronic systolic (congestive) heart failure; I44.7 Left bundle-branch block, unspecified; I42.0 Dilated cardiomyopathy; J44.9 Chronic obstructive pulmonary disease, unspecified; D50.9 Iron deficiency anemia, unspecified; I25.2 Old myocardial infarction; I34.0 Nonrheumatic mitral (valve) insufficiency; E11.21 Type 2 diabetes mellitus with diabetic nephropathy; E66.01 Morbid (severe) obesity due to excess calories; Z85.41 Personal history of malignant neoplasm of cervix uteri; R60.0 Localized edema; F32.9 Major depressive disorder, single episode, unspecified; G31.84 Mild cognitive impairment of uncertain or unknown etiology; Z95.810 Presence of automatic (implantable) cardiac defibrillator
CPT/HCPCS: 36415; 71045; 80048; 80053; 81003; 82550; 82553; 82962; 83880; 84132; 84484; 85025; 85610; 85730; 87086; 87181; 93005; 93306; 93970; 94664; 99285; J1815

== ENCOUNTER 2017-12-23 20:51 | Inpatient (IN) | payer MEDICARE, OTHER ==
[~2017-12-23] VITALS: Ht 154.9 cm; Wt 79.9 kg
[~2017-12-23 20:51] MED LIST changes: +ASCORBIC ACID500 M4 ORAL; +DIGOXIN250 MCG ORAL; +GABAPENTIN100 MG ORAL; +LEVEMIR FL100 UNIT/2 SQ; +LISINOPRIL2.5 MG ORAL; +MULTIVITAMINS1 EAC2 ORAL
--- NOTE | 2017-12-23 21:16 | Emergency Room Report ---
History of Present Illness General Chief Complaint: Dyspnea/Respdistress Source: Patient, Medical Record Present Illness HPI Patient present with complaints of shortness of breath Reports that over the past one day she has had increased short of breath Worsened with laying flat or any exertion Patient denies any back or flank pain she is on 2 L nasal cannula oxygen at home She feels that she has retained significant fluid And complains of swelling in her feet as well Denies any fevers or chills denies any cough Denies any dysuria or frequency Allergies: Coded Allergies: No Known Allergies (Unverified , 12/18/16) Patient History Past Medical History: see triage record Pertinent Family History: none Last Menstrual Period: NA Reviewed Nursing Documentation: PMH: Agreed; PSxH: Agreed Nursing Documentation-PMH Hx Cardiac Problems: Yes - CHF Hx Hypertension: Yes Hx Pacemaker: Yes Hx Asthma: No Hx COPD: Yes Hx Diabetes: Yes Hx Cancer: Yes - Uterine Tumor Hx Gastrointestinal Problems: Yes Hx Dialysis: No - CKD Hx Neurological Problems: Yes - CVA Hx Cerebrovascular Accident: Yes - RT SIDE WEAKNESS Hx Transient Ischemic Attacks: No Hx Dementia: No Hx Alzheimer's Disease: No Hx Parkinson's Disease: No Hx Meningitis: No Hx Encephalitis: No Hx Seizures: No Hx Epilepsy: No Hx Multiple Sclerosis: No Hx Cerebral Palsy: No Hx Amyotrophic Lat Sclerosis: No Hx Guillian-Gardena Syndrome: No Hx Paralysis: Yes - rt sided minor paralysis d/t CVA Hx Peripheral Neuropathy: No Hx Spinal Cord Injury: No Hx Head Trauma: No Hx Traumatic Brain Injury: No Hx Memory Loss: No Hx Concentration Difficulty: No Hx Speech Problem: No Hx Tremors: No Hx Vertigo: No Hx Dizziness: Yes Hx Syncope: No Hx Headaches: No Hx Aphasia: No Hx Dysphasia: No Hx Numbness: No Hx Weakness: No Hx Fatigue: No Hx Neurologic Surgery: No Hx Brain Shunt: No Review of Systems All Other Systems: negative except mentioned in HPI Physical Exam Vital Signs Date Time Temp Pulse Resp B/P (MAP) Pulse Ox O2 Delivery O2 Flow Rate FiO2 12/23/17 20:50 97.8 102 18 124/55 99 Nasal Cannula 2.0 97.9 Sp02 EP Interpretation: reviewed, normal General Appearance: mild distress - Appears short of breath Head: normocephalic, atraumatic Eyes: bilateral eye PERRL, bilateral eye EOMI ENT: hearing 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, normal pharynx, TMs + canals normal, uvula midline Neck: full range of motion, supple, no meningismus, no bony tend Respiratory: lungs clear, no respiratory distress, no retraction, no accessory muscle use, crackles - Both lower lobes, mildly tachypneic Cardiovascular #1: normal peripheral pulses, regular rate, rhythm, no gallop Gastrointestinal: normal bowel sounds, non tender, soft, no mass, no organomegaly, non-distended, no guarding, no hernia, no pulsatile mass, no rebound Genitourinary: no CVA tenderness Musculoskeletal: normal inspection Neurologic: oriented x3, responsive, field support specialist III-XII nml as tested, motor strength/ tone normal, sensory intact Psychiatric: mood/affect normal Skin: other - Edematous both lower legs Lymphatic: normal inspection, no adenopathy Medical Decision Making Diagnostic Impression: Primary Impression: Acute CHF ER Course Patient is a fairly complex patient with multiple differential to consideration including but not limited to cardiac cardiopulmonary and vascular emergencies Patient's x-ray shows findings consistent with CHF BNP is also elevated Patient has been provided with diuretics At this time requiring further inpatient care On review of medical records patient has extremely poor EF of 25% Labs Test 12/23/17 21:06 White Blood Count 9.8 K/UL (4.8-10.8) Red Blood Count 4.71 M/UL (4.20-5.40) Hemoglobin 12.3 G/DL (12.0-16.0) Hematocrit 38.4 % (37.0-47.0) Mean Corpuscular Volume 82 FL (80-99) Mean Corpuscular Hemoglobin 26.1 PG (27.0-31.0) Mean Corpuscular Hemoglobin Concent 32.0 G/DL (32.0-36.0) Red Cell Distribution Width 14.6 % (11.6-14.8) Platelet Count 194 K/UL (150-450) Mean Platelet Volume 9.0 FL (6.5-10.1) Neutrophils (%) (Auto) 66.0 % (45.0-75.0) Lymphocytes (%) (Auto) 20.5 % (20.0-45.0) Monocytes (%) (Auto) 9.0 % (1.0-10.0) Eosinophils (%) (Auto) 3.6 % (0.0-3.0) Basophils (%) (Auto) 0.9 % (0.0-2.0) Sodium Level 135 MMOL/L (136-145) Potassium Level 4.5 MMOL/L (3.5-5.1) Chloride Level 102 MMOL/L (98-107) Carbon Dioxide Level 27 MMOL/L (21-32) Anion Gap 7 mmol/L (5-15) Blood Urea Nitrogen 37 mg/dL (7-18) Creatinine 1.5 MG/DL (0.55-1.30) Estimat Glomerular Filtration Rate 34.4 mL/min (>60) Glucose Level 348 MG/DL (74-106) Calcium Level 8.7 MG/DL (8.5-10.1) Total Bilirubin 0.2 MG/DL (0.2-1.0) Aspartate Amino Transf (AST/SGOT) 13 U/L (15-37) Alanine Aminotransferase (ALT/SGPT) 18 U/L (12-78) Alkaline Phosphatase 158 U/L (46-116) Total Creatine Kinase 44 U/L (26-308) Creatine Kinase MB 0.7 NG/ML (0.0-3.6) Creatine Kinase MB Relative Index 1.5 Troponin I 0.000 ng/mL (0.000-0.056) Pro-B-Type Natriuretic Peptide 1685 pg/mL (0-125) Total Protein 7.9 G/DL (6.4-8.2) Albumin 3.1 G/DL (3.4-5.0) Globulin 4.8 g/dL Albumin/Globulin Ratio 0.6 (1.0-2.7) EKG Diagnostic Results Rate: normal Rhythm: other - atrial paced ST Segments: no acute changes Rhythm Strip Diag. Results EP Interpretation: yes Rate: 80 Rhythm: no PVC's, no ectopy, other - atrial paced Chest X-Ray Diagnostic Results Chest X-Ray Diagnostic Results : Chest X-Ray Ordered: Yes # of Views/Limited/Complete: 1 View Indication: Shortness of Breath EP Interpretation: Yes Interpretation: no consolidation, no effusion, no pneumothorax, other - Pulmonary congestion Impression: Other - Acute CHF Electronically Signed by: Hossein Dash DO Last Vital Signs Date Time Temp Pulse Resp B/P (MAP) Pulse Ox O2 Delivery O2 Flow Rate FiO2 12/23/17 20:50 97.8 102 18 124/55 99 Nasal Cannula 2.0 97.9 Status: improved Disposition: PLACE IN OBSERVATION Condition: Serious Hossein Dash DO Dec 23, 2017 21:16
[2017-12-23 21:20] LABS: BASOPHILS % (AUTO) 0.9 % (0.0-2.0); EOSINOPHILS % (AUTO) 3.6 % (0.0-3.0); HEMATOCRIT 38.4 % (37.0-47.0); HEMOGLOBIN 12.3 G/DL (12.0-16.0); LYMPHOCYTES % (AUTO) 20.5 % (20.0-45.0); MEAN CORPUSCULAR VOLUME 82 FL (80-99); PLATELET COUNT 194 K/UL (150-450); RED BLOOD COUNT 4.71 M/UL (4.20-5.40); RED CELL DISTRIBUTION WIDTH 14.6 % (11.6-14.8); WHITE BLOOD COUNT 9.8 K/UL (4.8-10.8)
[2017-12-23 21:25] VITALS: BP 110/50
[2017-12-23 21:30] LABS: ANION GAP 7 mmol/L (5-15); BLOOD UREA NITROGEN 37 mg/dL (7-18); CALCIUM 8.7 MG/DL (8.5-10.1); CARBON DIOXIDE 27 MMOL/L (21-32); CHLORIDE 102 MMOL/L (98-107); CREATININE 1.5 MG/DL (0.55-1.30); POTASSIUM 4.5 MMOL/L (3.5-5.1); SODIUM 135 MMOL/L (136-145)
--- NOTE | 2017-12-23 21:39 | Diagnostic Imaging Report ---
EXAM: XR Chest, 1 View CLINICAL HISTORY: SOB TECHNIQUE: Frontal view of the chest. COMPARISON: No relevant prior studies available. FINDINGS: Lungs: Low lung volumes with bronchovascular crowding. Bilateral central pulmonary hazy attenuation and best prominence may represent pulmonary edema or atypical infection in the proper clinical setting. Pleural space: Unremarkable. No pneumothorax. Heart: Unremarkable. No cardiomegaly. Mediastinum: Unremarkable. Bones/joints: Unremarkable. Tubes, lines and devices: Left chest ICD. Other findings: Recommend formal frontal and lateral chest radiographs if the patient can tolerate. IMPRESSION: 1. Low lung volumes with bronchovascular crowding. 2. Bilateral central pulmonary hazy attenuation and best prominence may represent pulmonary edema or atypical infection in the proper clinical setting. 3. Recommend formal frontal and lateral chest radiographs if the patient can tolerate.
[2017-12-23 21:45] LABS: ALANINE AMINOTRANSFERASE 18 U/L (12-78); ALBUMIN 3.1 G/DL (3.4-5.0); ALBUMIN/GLOBULIN RATIO 0.6 (1.0-2.7); ALKALINE PHOSPHATASE 158 U/L (46-116); ASPARTATE AMINO TRANSFERASE 13 U/L (15-37); BILIRUBIN,TOTAL 0.2 MG/DL (0.2-1.0); CKMB 0.7 NG/ML (0.0-3.6); CREATINE KINASE 44 U/L (26-308)
[2017-12-23 22:59] VITALS: BP 118/58
[2017-12-24] MEDS ORDERED: Miralax 17gm pkt ORAL PRN
[2017-12-24] MEDS ORDERED: Albuterol/Ipratropium 3ml neb HHN PRN
[2017-12-24 04:00] VITALS: BP 117/74
[2017-12-24] MEDS: NovoLOG Insulin Flexpen SUBQ SCH ×4 (05:17→21:26)
[2017-12-24 08:00] VITALS: BP 115/71
[2017-12-24 08:12] LABS: ANION GAP 9 mmol/L (5-15); BLOOD UREA NITROGEN 34 mg/dL (7-18); CALCIUM 8.9 MG/DL (8.5-10.1); CARBON DIOXIDE 26 MMOL/L (21-32); CHLORIDE 103 MMOL/L (98-107); CREATININE 1.3 MG/DL (0.55-1.30); POTASSIUM 5.2 MMOL/L (3.5-5.1); SODIUM 138 MMOL/L (136-145)
--- NOTE | 2017-12-24 08:59 | Consultation ---
History of Present Illness General Date patient seen: Dec 24, 2017 Time patient seen: 08:00 Chief Complaint: Dyspnea/Respdistress Referring physician: dr Wright Reason for Consultation: CHF exacerbation, COPD Present Illness HPI 72 y/old female with PMH significant for CVA with right hemiparesis, congestive heart failure with cardiomyopathy, AICD, history of SD in 2016, history of cervical cancer in 2016, COPD, diabetes mellitus, presented to emergency room with shortness of breath and bilateral lower extremity swelling for the last few days Shortness of breath worse with exertion and while laying g flat6, better with rest. No chest pain No fever, no chills upon evaluation in emergency department vital signs were stable No leukocytosis stable hemoglobin and hematocrit BUN 37, creatinine 1.5 Troponin negative, pro BNP 1685 Chest x-ray consistent with CHF Patient admitted to telemetry floor for acute CHF exacerbation for further management this am complaining of BLE pain Allergies: Coded Allergies: No Known Allergies (Unverified , 12/18/16) Medication History Scheduled Ascorbic Acid* (Ascorbic Acid*), 500 MG ORAL TWICE A DAY, (Reported) Aspirin Ec* (Aspirin Ec*), 81 MG ORAL DAILY, (Reported) Atorvastatin Calcium* (Atorvastatin Calcium*), 40 MG ORAL BEDTIME, (Reported) Carvedilol (Coreg), 6.25 MG ORAL EVERY 12 HOURS Carvedilol* (Carvedilol*), 3.125 MG ORAL EVERY 12 HOURS, (Reported) Clopidogrel Bisulfate* (Plavix*), 75 MG ORAL DAILY, (Reported) Clopidogrel* (Clopidogrel*), 75 MG ORAL DAILY, (Reported) Digoxin* (Digoxin*), Unknown Dose ORAL DAILY, (Reported) Esomeprazole Magnesium (Nexium), 40 MG ORAL DAILY, (Reported) Furosemide* (Lasix*), 40 MG ORAL DAILY, (Reported) Furosemide* (Lasix*), 40 MG ORAL DAILY Insulin Aspart (Novolog Flexpen), 0 UNITS SUBQ BEFORE MEALS AND HS Insulin Glargine (Lantus), 0 SUBQ BEDTIME, (Reported) Isosorbide Dinitrate* (Isordil*), 30 MG ORAL DAILY, (Reported) Lisinopril* (Lisinopril*), Unknown Dose ORAL DAILY, (Reported) Loratadine (Loratadine), 10 MG PO DAILY, (Reported) Multivitamins* (Multivitamins*), 1 TAB ORAL DAILY, (Reported) Polyethylene Glycol 3350* (Polyethylene Glycol 3350*), 17 GM ORAL DAILY, ( Reported) Pregabalin (Lyrica), 50 MG ORAL BID, (Reported) Spironolactone* (Aldactone*), 25 MG ORAL DAILY, (Reported) Sucralfate (Carafate), 1 GM ORAL FOUR TIMES A DAY Scheduled PRN Acetaminophen* (Tylenol Extra Strength*), 500 MG ORAL Q6H PRN for Mild Pain/ Temp > 100.5, (Reported) Dicyclomine Hcl* (Dicyclomine Hcl*), 10 MG PO QID PRN for Abdominal cramps Miscellaneous Medications Docusate Sodium* (Docusate Sodium*), 250 MG ORAL, (Reported) Gabapentin* (Gabapentin*), Unknown Dose ORAL, (Reported) Insulin Detemir (Levemir Flextouch), 100 UNIT SQ, (Reported) Simethicone (Mi-Acid), 80 MG PO, (Reported) Simethicone (Mi-Acid), 80 MG PO, (Reported) Patient History 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 Resuscitation status Full Code Advanced Directive on File Past Medical/Surgical History Past Medical/Surgical History: (1) COPD (chronic obstructive pulmonary disease) (2) CAD (coronary artery disease) (3) Diabetic nephropathy (4) Obesity (5) HTN (hypertension) (6) Multiple thyroid nodules (7) Cerebral vascular disease (8) Right hemiparesis (9) EF 25% (10) Cardiomyopathy (11) Diabetes mellitus (12) Diabetic neuropathy (13) LBBB (left bundle branch block) (14) Peripheral vascular disease (15) Iron deficiency anemia (16) Steatosis of liver Review of Systems Constitutional: Reports: weakness Eye: Reports: no symptoms ENT: Reports: no symptoms Respiratory: Reports: see HPI Cardiovascular: Reports: see HPI Genitourinary: Reports: other - hx of cervical Ca Musculoskeletal: Reports: muscle stiffness Skin: Reports: dryness Psychiatric: Reports: anxiety Neurological: Reports: other - hx of CVA with R hemiparesis Endocrine: Reports: other - DM Hematologic/Lymphatic: Reports: anemia Physical Exam General Appearance: alert - responsive, Bangladeshi speaking , obese Lines, tubes and drains: peripheral HEENT: normocephalic, atraumatic, anicteric, mucous membranes moist Neck: non-tender, supple Respiratory/Chest: no respiratory distress, no accessory muscle use, crackles/ rales - few scattered at kothari Cardiovascular/Chest: normal peripheral pulses, normal rate, pacemaker/AICD, other - + 2 edema ble Abdomen: normal bowel sounds, non tender, soft Extremities: no calf tenderness Skin Exam: warm/dry Neurologic: abnormal gait, alert, responsive, other - R hemiparesis Musculoskeletal: atrophy - BLE Last 24 Hour Vital Signs Date Time Temp Pulse Resp B/P (MAP) Pulse Ox O2 Delivery O2 Flow Rate FiO2 12/24/17 04:05 Nasal Cannula 2.0 12/24/17 04:00 97.0 91 24 117/74 (88) 97 97.0 12/24/17 04:00 79 12/23/17 23:39 97.4 84 23 118/58 99 Nasal Cannula 2.0 12/23/17 22:59 97.4 84 23 118/58 99 Room Air 2.0 97.4 12/23/17 21:25 92 18 Nasal Cannula 2.0 12/23/17 21:25 97.9 92 18 110/50 99 Nasal Cannula 2.0 97.9 12/23/17 20:50 97.8 102 18 124/55 99 Nasal Cannula 2.0 97.9 Laboratory Tests Test 12/23/17 21:06 12/24/17 05:47 White Blood Count 9.8 K/UL (4.8-10.8) Red Blood Count 4.71 M/UL (4.20-5.40) Hemoglobin 12.3 G/DL (12.0-16.0) Hematocrit 38.4 % (37.0-47.0) Mean Corpuscular Volume 82 FL (80-99) Mean Corpuscular Hemoglobin 26.1 PG (27.0-31.0) L Mean Corpuscular Hemoglobin Concent 32.0 G/DL (32.0-36.0) Red Cell Distribution Width 14.6 % (11.6-14.8) Platelet Count 194 K/UL (150-450) Mean Platelet Volume 9.0 FL (6.5-10.1) Neutrophils (%) (Auto) 66.0 % (45.0-75.0) Lymphocytes (%) (Auto) 20.5 % (20.0-45.0) Monocytes (%) (Auto) 9.0 % (1.0-10.0) Eosinophils (%) (Auto) 3.6 % (0.0-3.0) H Basophils (%) (Auto) 0.9 % (0.0-2.0) Sodium Level 135 MMOL/L (136-145) L 138 MMOL/L (136-145) Potassium Level 4.5 MMOL/L (3.5-5.1) 5.2 MMOL/L (3.5-5.1) H Chloride Level 102 MMOL/L (98-107) 103 MMOL/L (98-107) Carbon Dioxide Level 27 MMOL/L (21-32) 26 MMOL/L (21-32) Anion Gap 7 mmol/L (5-15) 9 mmol/L (5-15) Blood Urea Nitrogen 37 mg/dL (7-18) H 34 mg/dL (7-18) H Creatinine 1.5 MG/DL (0.55-1.30) H 1.3 MG/DL (0.55-1.30) Estimat Glomerular Filtration Rate 34.4 mL/min (>60) 40.5 mL/min (>60) Glucose Level 348 MG/DL (74-106) H 195 MG/DL (74-106) #H Calcium Level 8.7 MG/DL (8.5-10.1) 8.9 MG/DL (8.5-10.1) Total Bilirubin 0.2 MG/DL (0.2-1.0) Aspartate Amino Transf (AST/SGOT) 13 U/L (15-37) L Alanine Aminotransferase (ALT/SGPT) 18 U/L (12-78) Alkaline Phosphatase 158 U/L (46-116) H Total Creatine Kinase 44 U/L (26-308) Creatine Kinase MB 0.7 NG/ML (0.0-3.6) Creatine Kinase MB Relative Index 1.5 Troponin I 0.000 ng/mL (0.000-0.056) 0.020 ng/mL (0.000-0.056) Pro-B-Type Natriuretic Peptide 1685 pg/mL (0-125) H Total Protein 7.9 G/DL (6.4-8.2) Albumin 3.1 G/DL (3.4-5.0) L Globulin 4.8 g/dL Albumin/Globulin Ratio 0.6 (1.0-2.7) L Height (Feet): 5 Height (Inches): 1.00 Weight (Pounds): 162 Medications Current Medications Medications (Trade) Dose Ordered Sig/[place] Route PRN Reason Start Time Stop Time Status Last Admin Dose Admin Acetaminophen (Tylenol) 650 mg Q4H PRN ORAL Fever 12/24/17 00:00 01/23/18 00:00 12/24/17 04:15 Albuterol/ Ipratropium (Albuterol/ Ipratropium) 3 ml EVERY 4 HOURS PRN HHN Shortness of Breath 12/24/17 00:00 12/29/17 00:00 Atorvastatin Calcium (Lipitor) 40 mg BEDTIME ORAL 12/24/17 21:00 01/23/18 20:59 Carvedilol (Coreg) 6.25 mg EVERY 12 HOURS ORAL 12/24/17 09:00 01/23/18 08:59 Dextrose (Dextrose 50%) STAT PRN IV Hypoglycemia 12/24/17 00:00 01/23/18 00:00 Dextrose (Dextrose 50%) STAT PRN IV Hypoglycemia 12/24/17 00:00 01/23/18 00:00 Digoxin (Lanoxin) 0.25 mg DAILY ORAL 12/24/17 09:00 01/23/18 08:59 Furosemide (Lasix) 40 mg EVERY 8 HOURS IV 12/24/17 06:00 01/23/18 05:59 12/24/17 05:04 Gabapentin (Neurontin) 300 mg EVERY 8 HOURS ORAL 12/24/17 06:00 01/23/18 05:59 12/24/17 05:04 Heparin Sodium (Porcine) (Heparin 5000 units/ml) 5,000 units EVERY 12 HOURS SUBQ 12/24/17 09:00 01/23/18 08:59 Insulin Aspart (NovoLOG) BEFORE MEALS AND HS SUBQ 12/24/17 06:30 01/23/18 06:29 12/24/17 05:17 Ondansetron HCl (Zofran) 4 mg Q6H PRN IVP Nausea & Vomiting 12/24/17 00:00 01/23/18 00:00 Polyethylene Glycol (Miralax) 17 gm DAILYPRN PRN ORAL Constipation 12/24/17 00:00 01/23/18 00:00 Pregabalin (Lyrica) 50 mg BID ORAL 12/24/17 09:00 01/23/18 08:59 Temazepam (Restoril) 15 mg HSPRN PRN ORAL Insomnia 12/24/17 00:00 12/31/17 00:00 Assessment/Plan Assessment/Plan ASSESSMENT Acute on chronic systolic congestive heart failure Dilated cardiomyopathy with severe systolic dysfunction Severe mitral regurgitation Acute kidney injury on chronic renal inefficiency Cerebrovascular disease with history of CVA with right hemiparesis mild pulmonary HTN Diabetic nephropathy Diabetic neuropathy Diabetes mellitus type 2 COPD Hypertension Morbid obesity History of cervical cancer PLAN OF CARE Telemetry floor serial troponin cardiology consult [facility] with EF 25-30% and global LV hypokinesis , moderate to severe mitral regurgitation, moderate tricuspid regurgitation mild pulmonary hypertension with right ventricular systolic pressure of 45 IV diuresis Monitor volumes, cardiorenal parameters resume anti-failure regimen with BB, Digoxin and Lasix check digoxin level consider JAROCHO when creatinine stabilized -per cardio discretion resumed dual antiplatelet therapy blood pressure management with current regimen and optimize further as needed blood sugar management with sliding scale insulin DVT and GI prophylaxis venous duplex BLE O2 titrate, HHN prn pain in LE likely due to diabetic neuropathy, contineu Lyrica, add [place] prn pain management bowel regimen supportive care case discussed and evaluated by supervising physician Sari Carmona NP Dec 24, 2017 08:59
[2017-12-24] MEDS: Lyrica 50mg cap ORAL SCH ×2 (09:10→18:44)
[2017-12-24] MEDS: Carvedilol 6.25mg Tab ORAL SCH ×2 (09:11→21:27)
[2017-12-24] MEDS: Heparin 5000 units/ml inj SUBQ SCH ×2 (09:13→21:25)
[2017-12-24] MEDS: Aspirin EC 81mg tab ORAL SCH (09:15)
[2017-12-24 12:00] VITALS: BP 113/70
[2017-12-24] MEDS: Norco 5mg/325mg tab ORAL PRN (12:28)
--- NOTE | 2017-12-24 12:43 | Cardiology Report ---
APPROVED REPORT EXAM: Two-dimensional and M-mode echocardiogram with Doppler and color Doppler. INDICATION Left ventricular function M-Mode DIMENSIONS IVSd0.9 (0.7-1.1cm)Left Atrium (MM)3.4 (1.6-4.0cm) LVDd6.8 (3.5-5.6cm)Aortic Root2.4 (2.0-3.7cm) PWd0.9 (0.7-1.1cm)Aortic Cusp Exc.1.5 (1.5-2.0cm) LVDs6.1 (2.5-4.0cm) PWs1.0 cm Technically difficult study due to poor acoustical windows. Mild left ventricular enlargement. Anteroseptal wall, basal to mid lateral wall, septal wall and apical cap akinesia. Left ventricular ejection fraction estimated to be 25-30%. No evidence of left ventricular hypertrophy. No evidence of pericardial or pleural effusion. Mild bi-atrial enlargement by 2D. Focal aortic valve sclerosis with adequate cusp excursion. Moderatly thickened mitral valve leaflets with decreasedl excursion. Mitral stenosis. Mild mitral annulus and aortic root calcification. Pulmonic valve not well visualized. Normal tricuspid valve structure. IVC is normal in size with minimal collapse with respiration indicate increased RA pressure. Probable pacemaker wire present in the right side chambers. A color flow and spectral Doppler study was performed and revealed: Mild aortic regurgitation. Severe mitral regurgitation. Mitral P1/2 time of 36 m/s is compatible with a mitral valve area of 6.2 cm2 Peak mitral valve diastolic gradient of 13 mmHg and a mean gradient of 6mmHg Mitral inflow velocities indicates possible pseudo normalization pattern implying significant left ventricular diastolic dysfunction. Moderate tricuspid regurgitation. Tricuspid systolic velocities suggests peak right ventricular systolic pressure of 53 mmHg Consistent with severe pulmonary hypertension.
[2017-12-24 15:43] VITALS: BP 100/62
--- NOTE | 2017-12-24 17:15 | History & Physical ---
History and Physical History & Physicial Dictated for Int Med-Dr Wright no. [id number]. Ash Li MD Dec 24, 2017 17:15
[2017-12-24 20:00] VITALS: BP 113/64
[2017-12-24] MEDS ORDERED: Sodium Polystyrene Sulfonate 15gm Powder ORAL SCH (20:30)
--- NOTE | 2017-12-24 23:00 | History and Physical Report ---
DATE OF ADMISSION: 12/23/2017 CHIEF COMPLAINT: The patient is a 72-year-old female, who presents with a chief complaint of shortness of breath. HISTORY OF PRESENT ILLNESS: The patient was admitted to [facility] in November 2017. Please see history and physical and discharge summary dictated at that time. The patient states history of present illness began on 12/22/2017. The patient began to experience shortness of breath. Shortness of breath is worse while lying flat. The patient presented to [place] emergency room. The patient is admitted with shortness of breath to rule out acute on chronic congestive heart failure. REVIEW OF SYSTEMS: CONSTITUTIONAL: The patient denies weight loss or weight gain. The patient denies fevers or chills. HEENT: The patient denies ear or throat pain. The patient denies headache. CARDIOVASCULAR: The patient denies palpitations or chest pain. CHEST: The patient complains of shortness of breath as above. The patient denies wheezes. ABDOMEN: The patient denies nausea, vomiting, diarrhea, or constipation. GENITOURINARY: The patient denies dysuria or increased frequency of urination. NEUROMUSCULAR: The patient complains of bilateral lower extremity swelling and pain. The patient denies seizures or generalized weakness. PAST MEDICAL HISTORY: Significant for, 1. Congestive heart failure. 2. Chronic obstructive pulmonary disease. 3. History of cardiomyopathy. 4. Diabetes type 2. 5. Hypertension. 6. History of cerebrovascular accident. 7. Right hemiparesis. 8. Iron deficiency anemia. 9. Complete left bundle-branch block, status post AICD placement. 10. History of cervical cancer, status post total abdominal hysterectomy. PAST SURGICAL HISTORY: Significant for, 1. Total abdominal hysterectomy. 2. Appendectomy. 3. Automatic implantable cardioverter-defibrillator implanted in November of 2015. CURRENT MEDICATIONS: 1. Tylenol 650 mg p.o. q.4 h. p.r.n. 2. Aspirin 81 mg p.o. daily. 3. Atorvastatin 20 mg 2 tablets p.o. at bedtime. 4. Carvedilol 6.25 mg p.o. q.12 h. 5. Plavix 75 mg p.o. daily. 6. Digoxin 0.25 mg p.o. daily. 7. Nexium 40 mg p.o. daily. 8. Lasix 40 mg p.o. daily. 9. Gabapentin 100 mg p.o. at bedtime. 10. NovoLog sliding scale. 11. Levemir 100 units subcutaneously at bedtime. 12. Isosorbide dinitrate 30 mg p.o. daily. 13. Lisinopril 2.5 mg p.o. daily. 14. Lyrica 50 mg p.o. twice daily. 15. Spironolactone 25 mg p.o. daily. ALLERGIES: No known drug allergies. SOCIAL HISTORY: The patient is single and lives with her adult son. The patient denies tobacco or alcohol use. PHYSICAL EXAMINATION: VITAL SIGNS: Temperature 98.2, respirations 20, pulse 87, blood pressure 113/70. GENERAL: The patient is a well-developed, well-nourished, female, in no apparent distress. HEENT: Pupils are equal and responsive to light and accommodation. Extraocular movements are intact. NECK: Supple without lymphadenopathy. CHEST: Decreased breath sounds with crackles at bilateral bases. Otherwise, clear to auscultation without wheezes or rales. CARDIOVASCULAR: Regular rhythm and rate. S1 and S2 normal without murmurs, rubs, or gallops. ABDOMEN: Soft, nontender, and nondistended. Positive bowel sounds. No evidence of hepatosplenomegaly. Currently, no rebound or guarding noted. EXTREMITIES: Negative for clubbing, cyanosis, or edema. RECTAL/GENITAL: Refused. NEUROLOGIC: Cranial nerves II through XII are grossly intact without focal deficits. Motor strength is 5/5 bilaterally. Deep tendon reflexes are 2+ plantar. LABORATORY STUDIES: WBC 9.8, hemoglobin 12.3, hematocrit 38.4, platelets 194,000. Sodium 135, potassium 4.5, chloride 102, CO2 27, BUN 37, creatinine 1.5, glucose 348. BNP elevated at 1685. Troponin normal at 0.0. Chest x-ray was reported as bilateral pulmonary central attenuation consistent with pulmonary edema. An echocardiogram was performed, which revealed left ventricular ejection fraction of 25% to 30%. ASSESSMENT: This is a 72-year-old female, 1. Dyspnea. 2. Congestive heart failure. 3. Chronic obstructive pulmonary disease. 4. Dilated cardiomyopathy. 5. Diabetes type 2. 6. Hypertension. 7. Cerebrovascular disease. 8. Right hemiparesis. 9. Iron deficiency anemia. 10. Left bundle-branch block, complete. 11. Automatic implantable cardioverter defibrillator in situ. TREATMENT: 1. Dspnea/congestive heart failure. Cardiology consultation is pending with Dr. Suarez. We will follow recommendation of Cardiology. Serial BNPs will be performed. The patient is currently receiving intravenous Lasix. 2. Chronic obstructive pulmonary disease. A Pulmonary consultation has been obtained with Dr. Ida Nolen. We will follow recommendations of Dr. Nolen. 3. Diabetes type 2. The patient has been placed on a regular insulin sliding scale. 4. Hypertension. Continue lisinopril and Coreg as above. 5. Cerebrovascular disease. 6. Right hemiparesis. 7. Iron deficiency anemia. 8. Left bundle-branch block. The patient is status post automatic implantable cardioverter-defibrillator placement. Ash Li M.D. DR: CAREN JOB#: [id number] CC:
[2017-12-25] VITALS: BP 110/67
[2017-12-25] MEDS: Norco 5mg/325mg tab ORAL PRN (00:55)
[2017-12-25 04:00] VITALS: BP 100/57
[2017-12-25] MEDS: NovoLOG Insulin Flexpen SUBQ SCH ×4 (06:21→20:53)
[2017-12-25 07:22] LABS: EOSINOPHILS % (AUTO) 5.2 % (0.0-3.0); HEMOGLOBIN 12.1 G/DL (12.0-16.0); LYMPHOCYTES % (AUTO) 20.9 % (20.0-45.0); MEAN CORPUSCULAR VOLUME 83 FL (80-99); MONOCYTES % (AUTO) 9.4 % (1.0-10.0); NEUTROPHILS % (AUTO) 63.6 % (45.0-75.0); PLATELET COUNT 192 K/UL (150-450); RED BLOOD COUNT 4.45 M/UL (4.20-5.40); RED CELL DISTRIBUTION WIDTH 14.6 % (11.6-14.8); WHITE BLOOD COUNT 8.8 K/UL (4.8-10.8)
[2017-12-25 08:00] VITALS: BP 123/53
[2017-12-25 08:04] LABS: ANION GAP 6 mmol/L (5-15); BLOOD UREA NITROGEN 37 mg/dL (7-18); CALCIUM 8.4 MG/DL (8.5-10.1); CARBON DIOXIDE 29 MMOL/L (21-32); CHLORIDE 102 MMOL/L (98-107); CREATININE 1.6 MG/DL (0.55-1.30); POTASSIUM 4.2 MMOL/L (3.5-5.1); SODIUM 137 MMOL/L (136-145)
[2017-12-25] MEDS: Aspirin EC 81mg tab ORAL SCH (09:32)
[2017-12-25] MEDS: Lyrica 50mg cap ORAL SCH ×2 (09:33→17:03)
[2017-12-25] MEDS: Carvedilol 6.25mg Tab ORAL SCH ×2 (09:33→20:26)
[2017-12-25] MEDS: Heparin 5000 units/ml inj SUBQ SCH ×2 (09:34→20:28)
--- NOTE | 2017-12-25 11:11 | Pulmonology Progress Note ---
Assessment/Plan Problems: (1) CHF exacerbation (2) ATN (acute tubular necrosis) (3) COPD (chronic obstructive pulmonary disease) (4) EF 25% (5) Hemiparesis, right (6) Diabetes mellitus Assessment/Plan hold diuretics for now, BUN/creatinine rising respiratory treatment check electrolytes symptomatic treatment titrate fio2 to sat of 92% Subjective ROS Limited/Unobtainable: No Allergies: Coded Allergies: No Known Allergies (Unverified , 12/18/16) Objective Last 24 Hour Vital Signs Date Time Temp Pulse Resp B/P (MAP) Pulse Ox O2 Delivery O2 Flow Rate FiO2 12/25/17 09:33 85 12/25/17 09:33 85 123/53 12/25/17 08:00 96.8 85 18 123/53 (76) 94 96.8 12/25/17 04:00 97.0 68 28 100/57 (71) 93 97.0 12/25/17 04:00 84 12/25/17 00:00 97.3 95 28 110/67 (81) 96 97.3 12/25/17 00:00 92 12/24/17 21:27 89 118/58 12/24/17 21:00 Room Air 2.0 12/24/17 20:00 94 Nasal Cannula 2.0 28 12/24/17 20:00 87 12/24/17 20:00 97.7 89 22 113/64 (80) 94 97.7 12/24/17 20:00 Nasal Cannula 2.0 28 12/24/17 20:00 88 18 Nasal Cannula 2.0 28 12/24/17 17:28 88 20 Nasal Cannula 2.0 28 12/24/17 16:00 86 12/24/17 15:43 97.0 88 20 100/62 (75) 98 97.0 12/24/17 12:00 98.2 87 20 113/70 (84) 95 98.2 12/24/17 12:00 86 Intake and Output 12/24/17 12/25/17 19:00 07:00 Intake Total 800 ml Output Total 500 ml 900 ml Balance 300 ml -900 ml Intake Oral 800 ml Output Urine Total 500 ml 900 ml # Voids 2 General Appearance: WD/WN HEENT: normocephalic, atraumatic Respiratory/Chest: chest wall non-tender, lungs clear Breasts: no masses Cardiovascular: normal peripheral pulses Abdomen: normal bowel sounds, soft, non tender Genitourinary: normal external genitalia Extremities: no cyanosis Skin: no lesions 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: mds nurse II-XII 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 Lymphatic: no neck adenopathy Microbiology Date/Time Source Procedure Growth Status 12/23/17 21:17 Blood Blood Culture - Preliminary NO GROWTH AFTER 24 HOURS Resulted 12/23/17 21:07 Blood Blood Culture - Preliminary NO GROWTH AFTER 24 HOURS Resulted 12/23/17 23:00 Nose MRSA Culture - Final NO METHICILLIN RESISTANT STAPH AUREUS... Complete 12/23/17 23:00 Rectum - Preliminary Resulted 12/23/17 23:00 Rectum Received Laboratory Tests 12/25/17 06:15: White Blood Count 8.8, Red Blood Count 4.45, Hemoglobin 12.1, Hematocrit 37.0, Mean Corpuscular Volume 83, Mean Corpuscular Hemoglobin 27.2, Mean Corpuscular Hemoglobin Concent 32.7, Red Cell Distribution Width 14.6, Platelet Count 192, Mean Platelet Volume 9.7, Neutrophils (%) (Auto) 63.6, Lymphocytes (%) (Auto) 20.9, Monocytes (%) (Auto) 9.4, Eosinophils (%) (Auto) 5.2H, Basophils (%) (Auto ) 1.0, Sodium Level 137, Potassium Level 4.2, Chloride Level 102, Carbon Dioxide Level 29, Anion Gap 6, Blood Urea Nitrogen 37H, Creatinine 1.6H, Estimat Glomerular Filtration Rate 31.8, Glucose Level 252H, Calcium Level 8.4L , Troponin I 0.013, Pro-B-Type Natriuretic Peptide 1497H Current Medications Medications (Trade) Dose Ordered Sig/[place] Route PRN Reason Start Time Stop Time Status Last Admin Dose Admin Acetaminophen (Tylenol) 650 mg Q4H PRN ORAL Fever 12/24/17 00:00 01/23/18 00:00 12/24/17 04:15 Acetaminophen/ Hydrocodone Bitart ([place] 5/325) 1 tab Q4H PRN ORAL Moderate Pain (Pain Scale 4-6) 12/24/17 09:30 12/31/17 09:29 12/25/17 00:55 Albuterol/ Ipratropium (Albuterol/ Ipratropium) 3 ml EVERY 4 HOURS PRN HHN Shortness of Breath 12/24/17 00:00 12/29/17 00:00 Aspirin (Ecotrin) 81 mg DAILY ORAL 12/24/17 09:00 01/23/18 08:59 12/25/17 09:32 Atorvastatin Calcium (Lipitor) 40 mg BEDTIME ORAL 12/24/17 21:00 01/23/18 20:59 12/24/17 21:26 Carvedilol (Coreg) 6.25 mg EVERY 12 HOURS ORAL 12/24/17 09:00 01/23/18 08:59 12/25/17 09:33 Clopidogrel Bisulfate (Plavix) 75 mg DAILY ORAL 12/24/17 09:00 01/23/18 08:59 12/25/17 09:32 Dextrose (Dextrose 50%) STAT PRN IV Hypoglycemia 12/24/17 00:00 01/23/18 00:00 Dextrose (Dextrose 50%) STAT PRN IV Hypoglycemia 12/24/17 00:00 01/23/18 00:00 Digoxin (Lanoxin) 0.25 mg DAILY ORAL 12/24/17 09:00 01/23/18 08:59 12/25/17 09:33 Furosemide (Lasix) 40 mg EVERY 8 HOURS IV 12/24/17 06:00 01/23/18 05:59 12/25/17 06:19 Gabapentin (Neurontin) 300 mg EVERY 8 HOURS ORAL 12/24/17 06:00 01/23/18 05:59 12/25/17 06:19 Heparin Sodium (Porcine) (Heparin 5000 units/ml) 5,000 units EVERY 12 HOURS SUBQ 12/24/17 09:00 01/23/18 08:59 12/25/17 09:34 Insulin Aspart (NovoLOG) BEFORE MEALS AND HS SUBQ 12/24/17 06:30 01/23/18 06:29 12/25/17 06:21 Ondansetron HCl (Zofran) 4 mg Q6H PRN IVP Nausea & Vomiting 12/24/17 00:00 01/23/18 00:00 Pantoprazole (Protonix) 40 mg DAILY ORAL 12/24/17 09:00 01/23/18 08:59 12/25/17 09:32 Polyethylene Glycol (Miralax) 17 gm DAILYPRN PRN ORAL Constipation 12/24/17 00:00 01/23/18 00:00 Pregabalin (Lyrica) 50 mg BID ORAL 12/24/17 09:00 01/23/18 08:59 12/25/17 09:33 Temazepam (Restoril) 15 mg HSPRN PRN ORAL Insomnia 12/24/17 00:00 12/31/17 00:00 12/25/17 00:54 Ida Nolen MD Dec 25, 2017 11:11
[2017-12-25 12:00] VITALS: BP 105/45
--- NOTE | 2017-12-25 15:48 | Consultation ---
History of Present Illness General Date patient seen: Dec 25, 2017 Chief Complaint: Dyspnea/Respdistress Referring physician: dr Wright Reason for Consultation: CHF exacerbation, COPD Present Illness HPI the pt is a 72 yo female with multiple medical problems who came in for chf exacerbation. the pt has anxiety and diff sleeping. the pt has insomnia and low energy. Allergies: Coded Allergies: No Known Allergies (Unverified , 12/18/16) Medication History Scheduled Ascorbic Acid* (Ascorbic Acid*), 500 MG ORAL TWICE A DAY, (Reported) Aspirin Ec* (Aspirin Ec*), 81 MG ORAL DAILY, (Reported) Atorvastatin Calcium* (Atorvastatin Calcium*), 40 MG ORAL BEDTIME, (Reported) Carvedilol (Coreg), 6.25 MG ORAL EVERY 12 HOURS Carvedilol* (Carvedilol*), 3.125 MG ORAL EVERY 12 HOURS, (Reported) Clopidogrel Bisulfate* (Plavix*), 75 MG ORAL DAILY, (Reported) Clopidogrel* (Clopidogrel*), 75 MG ORAL DAILY, (Reported) Digoxin* (Digoxin*), Unknown Dose ORAL DAILY, (Reported) Esomeprazole Magnesium (Nexium), 40 MG ORAL DAILY, (Reported) Furosemide* (Lasix*), 40 MG ORAL DAILY, (Reported) Furosemide* (Lasix*), 40 MG ORAL DAILY Insulin Aspart (Novolog Flexpen), 0 UNITS SUBQ BEFORE MEALS AND HS Insulin Glargine (Lantus), 0 SUBQ BEDTIME, (Reported) Isosorbide Dinitrate* (Isordil*), 30 MG ORAL DAILY, (Reported) Lisinopril* (Lisinopril*), Unknown Dose ORAL DAILY, (Reported) Loratadine (Loratadine), 10 MG PO DAILY, (Reported) Multivitamins* (Multivitamins*), 1 TAB ORAL DAILY, (Reported) Polyethylene Glycol 3350* (Polyethylene Glycol 3350*), 17 GM ORAL DAILY, ( Reported) Pregabalin (Lyrica), 50 MG ORAL BID, (Reported) Spironolactone* (Aldactone*), 25 MG ORAL DAILY, (Reported) Sucralfate (Carafate), 1 GM ORAL FOUR TIMES A DAY Scheduled PRN Acetaminophen* (Tylenol Extra Strength*), 500 MG ORAL Q6H PRN for Mild Pain/ Temp > 100.5, (Reported) Dicyclomine Hcl* (Dicyclomine Hcl*), 10 MG PO QID PRN for Abdominal cramps Miscellaneous Medications Docusate Sodium* (Docusate Sodium*), 250 MG ORAL, (Reported) Gabapentin* (Gabapentin*), Unknown Dose ORAL, (Reported) Insulin Detemir (Levemir Flextouch), 100 UNIT SQ, (Reported) Simethicone (Mi-Acid), 80 MG PO, (Reported) Simethicone (Mi-Acid), 80 MG PO, (Reported) Patient History 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 Resuscitation status Full Code Advanced Directive on File Review of Systems Psychiatric: Reports: prior hx, anxiety, emotional problems Physical Exam General Appearance: no apparent distress, alert Neurologic: oriented x 3, responsive, depressed affect Last 24 Hour Vital Signs Date Time Temp Pulse Resp B/P (MAP) Pulse Ox O2 Delivery O2 Flow Rate FiO2 12/25/17 14:10 86 20 Nasal Cannula 2.0 28 12/25/17 14:10 Nasal Cannula 2.0 28 12/25/17 14:10 95 Nasal Cannula 2.0 28 12/25/17 12:00 97.9 90 20 105/45 (65) 98 97.9 12/25/17 11:50 89 12/25/17 09:33 85 12/25/17 09:33 85 123/53 12/25/17 09:00 Room Air 2.0 12/25/17 08:00 96.8 85 18 123/53 (76) 94 96.8 12/25/17 07:50 82 12/25/17 04:00 97.0 68 28 100/57 (71) 93 97.0 12/25/17 04:00 84 12/25/17 00:00 97.3 95 28 110/67 (81) 96 97.3 12/25/17 00:00 92 12/24/17 21:27 89 118/58 12/24/17 21:00 Room Air 2.0 12/24/17 20:00 94 Nasal Cannula 2.0 28 12/24/17 20:00 87 12/24/17 20:00 97.7 89 22 113/64 (80) 94 97.7 12/24/17 20:00 Nasal Cannula 2.0 28 12/24/17 20:00 88 18 Nasal Cannula 2.0 28 12/24/17 17:28 88 20 Nasal Cannula 2.0 28 12/24/17 16:00 86 Intake and Output 12/24/17 12/25/17 19:00 07:00 Intake Total 800 ml Output Total 500 ml 900 ml Balance 300 ml -900 ml Intake Oral 800 ml Output Urine Total 500 ml 900 ml # Voids 2 Laboratory Tests Test 12/25/17 06:15 White Blood Count 8.8 K/UL (4.8-10.8) Red Blood Count 4.45 M/UL (4.20-5.40) Hemoglobin 12.1 G/DL (12.0-16.0) Hematocrit 37.0 % (37.0-47.0) Mean Corpuscular Volume 83 FL (80-99) Mean Corpuscular Hemoglobin 27.2 PG (27.0-31.0) Mean Corpuscular Hemoglobin Concent 32.7 G/DL (32.0-36.0) Red Cell Distribution Width 14.6 % (11.6-14.8) Platelet Count 192 K/UL (150-450) Mean Platelet Volume 9.7 FL (6.5-10.1) Neutrophils (%) (Auto) 63.6 % (45.0-75.0) Lymphocytes (%) (Auto) 20.9 % (20.0-45.0) Monocytes (%) (Auto) 9.4 % (1.0-10.0) Eosinophils (%) (Auto) 5.2 % (0.0-3.0) H Basophils (%) (Auto) 1.0 % (0.0-2.0) Sodium Level 137 MMOL/L (136-145) Potassium Level 4.2 MMOL/L (3.5-5.1) Chloride Level 102 MMOL/L (98-107) Carbon Dioxide Level 29 MMOL/L (21-32) Anion Gap 6 mmol/L (5-15) Blood Urea Nitrogen 37 mg/dL (7-18) H Creatinine 1.6 MG/DL (0.55-1.30) H Estimat Glomerular Filtration Rate 31.8 mL/min (>60) Glucose Level 252 MG/DL (74-106) H Calcium Level 8.4 MG/DL (8.5-10.1) L Troponin I 0.013 ng/mL (0.000-0.056) Pro-B-Type Natriuretic Peptide 1497 pg/mL (0-125) H Height (Feet): 5 Height (Inches): 1.00 Weight (Pounds): 162 Medications Current Medications Medications (Trade) Dose Ordered Sig/[place] Route PRN Reason Start Time Stop Time Status Last Admin Dose Admin Acetaminophen (Tylenol) 650 mg Q4H PRN ORAL Fever 12/24/17 00:00 01/23/18 00:00 12/24/17 04:15 Acetaminophen/ Hydrocodone Bitart ([place] 5/325) 1 tab Q4H PRN ORAL Moderate Pain (Pain Scale 4-6) 12/24/17 09:30 12/31/17 09:29 12/25/17 00:55 Albuterol/ Ipratropium (Albuterol/ Ipratropium) 3 ml EVERY 4 HOURS PRN HHN Shortness of Breath 12/24/17 00:00 12/29/17 00:00 Aspirin (Ecotrin) 81 mg DAILY ORAL 12/24/17 09:00 01/23/18 08:59 12/25/17 09:32 Atorvastatin Calcium (Lipitor) 40 mg BEDTIME ORAL 12/24/17 21:00 01/23/18 20:59 12/24/17 21:26 Carvedilol (Coreg) 6.25 mg EVERY 12 HOURS ORAL 12/24/17 09:00 01/23/18 08:59 12/25/17 09:33 Clopidogrel Bisulfate (Plavix) 75 mg DAILY ORAL 12/24/17 09:00 01/23/18 08:59 12/25/17 09:32 Dextrose (Dextrose 50%) STAT PRN IV Hypoglycemia 12/24/17 00:00 01/23/18 00:00 Dextrose (Dextrose 50%) STAT PRN IV Hypoglycemia 12/24/17 00:00 01/23/18 00:00 Digoxin (Lanoxin) 0.25 mg DAILY ORAL 12/24/17 09:00 01/23/18 08:59 12/25/17 09:33 Gabapentin (Neurontin) 300 mg EVERY 8 HOURS ORAL 12/24/17 06:00 01/23/18 05:59 12/25/17 14:34 Heparin Sodium (Porcine) (Heparin 5000 units/ml) 5,000 units EVERY 12 HOURS SUBQ 12/24/17 09:00 01/23/18 08:59 12/25/17 09:34 Insulin Aspart (NovoLOG) BEFORE MEALS AND HS SUBQ 12/24/17 06:30 01/23/18 06:29 12/25/17 12:37 Ondansetron HCl (Zofran) 4 mg Q6H PRN IVP Nausea & Vomiting 12/24/17 00:00 01/23/18 00:00 Pantoprazole (Protonix) 40 mg DAILY ORAL 12/24/17 09:00 01/23/18 08:59 12/25/17 09:32 Polyethylene Glycol (Miralax) 17 gm DAILYPRN PRN ORAL Constipation 12/24/17 00:00 01/23/18 00:00 Pregabalin (Lyrica) 50 mg BID ORAL 12/24/17 09:00 01/23/18 08:59 12/25/17 09:33 Temazepam (Restoril) 15 mg HSPRN PRN ORAL Insomnia 12/24/17 00:00 12/31/17 00:00 12/25/17 00:54 Assessment/Plan Assessment/Plan Anxiety d/o restoril 15mg qhs ativan prn Teresa Douglas MD Dec 25, 2017 15:48
[2017-12-25 16:00] VITALS: BP 115/66
--- NOTE | 2017-12-25 18:37 | Internal Med Progress Note ---
Subjective Date of Service: Dec 25, 2017 Physician Name Ash Li Attending Physician Brendan Wright MD Current Medications Medications (Trade) Dose Ordered Sig/[place] Route PRN Reason Start Time Stop Time Status Last Admin Dose Admin Acetaminophen (Tylenol) 650 mg Q4H PRN ORAL Fever 12/24/17 00:00 01/23/18 00:00 12/24/17 04:15 Acetaminophen/ Hydrocodone Bitart ([place] 5/325) 1 tab Q4H PRN ORAL Moderate Pain (Pain Scale 4-6) 12/24/17 09:30 12/31/17 09:29 12/25/17 00:55 Albuterol/ Ipratropium (Albuterol/ Ipratropium) 3 ml EVERY 4 HOURS PRN HHN Shortness of Breath 12/24/17 00:00 12/29/17 00:00 Aspirin (Ecotrin) 81 mg DAILY ORAL 12/24/17 09:00 01/23/18 08:59 12/25/17 09:32 Atorvastatin Calcium (Lipitor) 40 mg BEDTIME ORAL 12/24/17 21:00 01/23/18 20:59 12/24/17 21:26 Carvedilol (Coreg) 6.25 mg EVERY 12 HOURS ORAL 12/24/17 09:00 01/23/18 08:59 12/25/17 09:33 Clopidogrel Bisulfate (Plavix) 75 mg DAILY ORAL 12/24/17 09:00 01/23/18 08:59 12/25/17 09:32 Dextrose (Dextrose 50%) STAT PRN IV Hypoglycemia 12/24/17 00:00 01/23/18 00:00 Dextrose (Dextrose 50%) STAT PRN IV Hypoglycemia 12/24/17 00:00 01/23/18 00:00 Digoxin (Lanoxin) 0.25 mg DAILY ORAL 12/24/17 09:00 01/23/18 08:59 12/25/17 09:33 Gabapentin (Neurontin) 300 mg EVERY 8 HOURS ORAL 12/24/17 06:00 01/23/18 05:59 12/25/17 14:34 Heparin Sodium (Porcine) (Heparin 5000 units/ml) 5,000 units EVERY 12 HOURS SUBQ 12/24/17 09:00 01/23/18 08:59 12/25/17 09:34 Insulin Aspart (NovoLOG) BEFORE MEALS AND HS SUBQ 12/24/17 06:30 01/23/18 06:29 12/25/17 17:05 Ondansetron HCl (Zofran) 4 mg Q6H PRN IVP Nausea & Vomiting 12/24/17 00:00 01/23/18 00:00 Pantoprazole (Protonix) 40 mg DAILY ORAL 12/24/17 09:00 01/23/18 08:59 12/25/17 09:32 Polyethylene Glycol (Miralax) 17 gm DAILYPRN PRN ORAL Constipation 12/24/17 00:00 01/23/18 00:00 Pregabalin (Lyrica) 50 mg BID ORAL 12/24/17 09:00 01/23/18 08:59 12/25/17 17:03 Temazepam (Restoril) 15 mg HSPRN PRN ORAL Insomnia 12/24/17 00:00 12/31/17 00:00 12/25/17 00:54 Allergies: Coded Allergies: No Known Allergies (Unverified , 12/18/16) ROS Limited/Unobtainable: No Constitutional: Reports: no symptoms HEENT: Reports: no symptoms Cardiovascular: Reports: no symptoms Respiratory: Reports: shortness of breath Gastrointestinal/Abdominal: Reports: no symptoms Genitourinary: Reports: no symptoms 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: Reports: no symptoms Subjective 72 YO F admitted with dyspnea. Now chuckie heart failure. Cover for Int [place]-Dr Wright Objective Last Vital Signs Date Time Temp Pulse Resp B/P (MAP) Pulse Ox O2 Delivery O2 Flow Rate FiO2 12/25/17 16:00 99.7 91 20 115/66 (82) 99 99.7 12/25/17 14:10 Nasal Cannula 2.0 28 General Appearance: WD/WN, no apparent distress, alert EENT: PERRL/EOMI, normal ENT inspection, TMs normal Neck: supple, normal inspection Cardiovascular: normal peripheral pulses, normal rate, regular rhythm, no gallop/murmur, no JVD Respiratory/Chest: chest wall non-tender, respiratory distress, decreased breath sounds, accessory muscle use, crackles/rales, expiratory wheezing Abdomen: normal bowel sounds, non tender, soft, no organomegaly, no mass Extremities: normal range of motion, non-tender Neurologic: log snaker II-XII 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, motor weakness - right Skin: normal pigmentation, warm/dry Laboratory Tests Test 12/25/17 06:15 White Blood Count 8.8 K/UL (4.8-10.8) Red Blood Count 4.45 M/UL (4.20-5.40) Hemoglobin 12.1 G/DL (12.0-16.0) Hematocrit 37.0 % (37.0-47.0) Mean Corpuscular Volume 83 FL (80-99) Mean Corpuscular Hemoglobin 27.2 PG (27.0-31.0) Mean Corpuscular Hemoglobin Concent 32.7 G/DL (32.0-36.0) Red Cell Distribution Width 14.6 % (11.6-14.8) Platelet Count 192 K/UL (150-450) Mean Platelet Volume 9.7 FL (6.5-10.1) Neutrophils (%) (Auto) 63.6 % (45.0-75.0) Lymphocytes (%) (Auto) 20.9 % (20.0-45.0) Monocytes (%) (Auto) 9.4 % (1.0-10.0) Eosinophils (%) (Auto) 5.2 % (0.0-3.0) H Basophils (%) (Auto) 1.0 % (0.0-2.0) Sodium Level 137 MMOL/L (136-145) Potassium Level 4.2 MMOL/L (3.5-5.1) Chloride Level 102 MMOL/L (98-107) Carbon Dioxide Level 29 MMOL/L (21-32) Anion Gap 6 mmol/L (5-15) Blood Urea Nitrogen 37 mg/dL (7-18) H Creatinine 1.6 MG/DL (0.55-1.30) H Estimat Glomerular Filtration Rate 31.8 mL/min (>60) Glucose Level 252 MG/DL (74-106) H Calcium Level 8.4 MG/DL (8.5-10.1) L Troponin I 0.013 ng/mL (0.000-0.056) Pro-B-Type Natriuretic Peptide 1497 pg/mL (0-125) H Microbiology Date/Time Source Procedure Growth Status 12/23/17 21:17 Blood Blood Culture - Preliminary NO GROWTH AFTER 24 HOURS Resulted 12/23/17 21:07 Blood Blood Culture - Preliminary NO GROWTH AFTER 24 HOURS Resulted 12/23/17 23:00 Nose MRSA Culture - Final NO METHICILLIN RESISTANT STAPH AUREUS... Complete 12/23/17 23:00 Rectum - Preliminary Resulted 12/23/17 23:00 Rectum Received Intake and Output 12/24/17 12/25/17 19:00 07:00 Intake Total 800 ml Output Total 500 ml 900 ml Balance 300 ml -900 ml Intake Oral 800 ml Output Urine Total 500 ml 900 ml # Voids 2 Assessment/Plan Problem List: (1) Shortness of breath (2) CHF exacerbation Assessment & Plan: Await cardiology consult. Continue lasix and coreg (3) EF 25% (4) Hemiparesis, right (5) COPD (chronic obstructive pulmonary disease) Assessment & Plan: see pulmonary note. (6) Cardiomyopathy (7) HTN (hypertension) Assessment & Plan: continue coreg (8) Cerebral vascular disease Assessment & Plan: continue plavix (9) Iron deficiency anemia (10) LBBB (left bundle branch block) (11) AICD (automatic cardioverter/defibrillator) present Status: not improved Ash Li MD Dec 25, 2017 18:37
[2017-12-25 20:00] VITALS: BP 105/52
--- NOTE | 2017-12-25 20:39 | Cardiology Progress Note ---
Assessment/Plan Assessment/Plan [id number] multiple rehospitalization will consider entresto low dose as outpt not available here lwo dose acei for nwo hodl bb for 1-2 days will need to consider mitraclip in future to decrease frequency of hospitalization needs teaching for fluid and na restriction Objective Last 24 Hour Vital Signs Date Time Temp Pulse Resp B/P (MAP) Pulse Ox O2 Delivery O2 Flow Rate FiO2 12/25/17 20:26 68 110/62 12/25/17 20:00 98.1 86 18 105/52 (69) 95 98.1 12/25/17 16:00 99.7 91 20 115/66 (82) 99 99.7 12/25/17 15:45 88 12/25/17 14:10 86 20 Nasal Cannula 2.0 28 12/25/17 14:10 Nasal Cannula 2.0 28 12/25/17 14:10 95 Nasal Cannula 2.0 28 12/25/17 12:00 97.9 90 20 105/45 (65) 98 97.9 12/25/17 11:50 89 12/25/17 09:33 85 12/25/17 09:33 85 123/53 12/25/17 09:00 Room Air 2.0 12/25/17 08:00 96.8 85 18 123/53 (76) 94 96.8 12/25/17 07:50 82 12/25/17 04:00 97.0 68 28 100/57 (71) 93 97.0 12/25/17 04:00 84 12/25/17 00:00 97.3 95 28 110/67 (81) 96 97.3 12/25/17 00:00 92 12/24/17 21:27 89 118/58 12/24/17 21:00 Room Air 2.0 Intake and Output 12/24/17 12/25/17 19:00 07:00 Intake Total 800 ml Output Total 500 ml 900 ml Balance 300 ml -900 ml Intake Oral 800 ml Output Urine Total 500 ml 900 ml # Voids 2 Laboratory Tests Test 12/25/17 06:15 White Blood Count 8.8 K/UL (4.8-10.8) Red Blood Count 4.45 M/UL (4.20-5.40) Hemoglobin 12.1 G/DL (12.0-16.0) Hematocrit 37.0 % (37.0-47.0) Mean Corpuscular Volume 83 FL (80-99) Mean Corpuscular Hemoglobin 27.2 PG (27.0-31.0) Mean Corpuscular Hemoglobin Concent 32.7 G/DL (32.0-36.0) Red Cell Distribution Width 14.6 % (11.6-14.8) Platelet Count 192 K/UL (150-450) Mean Platelet Volume 9.7 FL (6.5-10.1) Neutrophils (%) (Auto) 63.6 % (45.0-75.0) Lymphocytes (%) (Auto) 20.9 % (20.0-45.0) Monocytes (%) (Auto) 9.4 % (1.0-10.0) Eosinophils (%) (Auto) 5.2 % (0.0-3.0) H Basophils (%) (Auto) 1.0 % (0.0-2.0) Sodium Level 137 MMOL/L (136-145) Potassium Level 4.2 MMOL/L (3.5-5.1) Chloride Level 102 MMOL/L (98-107) Carbon Dioxide Level 29 MMOL/L (21-32) Anion Gap 6 mmol/L (5-15) Blood Urea Nitrogen 37 mg/dL (7-18) H Creatinine 1.6 MG/DL (0.55-1.30) H Estimat Glomerular Filtration Rate 31.8 mL/min (>60) Glucose Level 252 MG/DL (74-106) H Calcium Level 8.4 MG/DL (8.5-10.1) L Troponin I 0.013 ng/mL (0.000-0.056) Pro-B-Type Natriuretic Peptide 1497 pg/mL (0-125) H Microbiology Date/Time Source Procedure Growth Status 12/23/17 21:17 Blood Blood Culture - Preliminary NO GROWTH AFTER 24 HOURS Resulted 12/23/17 21:07 Blood Blood Culture - Preliminary NO GROWTH AFTER 24 HOURS Resulted 12/23/17 23:00 Nose MRSA Culture - Final NO METHICILLIN RESISTANT STAPH AUREUS... Complete 12/23/17 23:00 Rectum - Preliminary Resulted 12/23/17 23:00 Rectum Received Chun Morejon MD Dec 25, 2017 20:39
[2017-12-25] MEDS: Lisinopril 2.5mg tab ORAL SCH (21:00)
[2017-12-26] VITALS: BP 113/55
[2017-12-26 04:00] VITALS: BP 116/57
--- NOTE | 2017-12-26 05:00 | Consultation ---
DATE OF CONSULTATION: 12/25/2017 CARDIOLOGY CONSULTATION CONSULTING PHYSICIAN: Chun Morejon M.D. REFERRING PHYSICIAN: Ida Nolen M.D. REASON FOR REFERRAL: Congestive heart failure and cardiomyopathy. HISTORY OF PRESENT ILLNESS: This is an elderly female, who has a history of multiple medical problems including cardiomyopathy, congestive heart failure, has had multiple hospitalizations on prior occasions even elsewhere. The patient was last hospitalized and discharged from [facility] in 11/2012 and developed during that hospitalization azotemia, discontinuation of diuretics and was to start as an outpatient, but not clear if ever followed up anywhere. Nevertheless, she comes in because of shortness of breath. For 6 days or so, she has , dyspnea on exertion and she has occasional dizziness or lightheadedness. No palpitation. No pain, pressure or tightness or heaviness in the chest whatsoever. Old records indicate the patient has been previously followed by Dr. Howard with ejection fraction of 25%, history of ICD implantation and has a history of diabetes mellitus and severe cardiomyopathy, systemic hypertension, renal failure, pneumonia previously. She has history of iron-deficiency anemia, hypoalbuminemia, steatosis of the liver, right hemiparesis, chronic obstructive pulmonary disease and sacral pressure ulcer. Coronary artery disease is mentioned as part of her medical regimen, but really no discrete details available. She had a history of cervical cancer status post total abdominal hysterectomy, appendectomy and she has a history of peripheral neuropathy, history of left bundle-branch conduction defect, and chronic lumbar L2 compression fractures previously. ALLERGIES: No allergies. SOCIAL HISTORY: No smoking, alcohol, or drugs. REVIEW OF SYSTEMS: GASTROINTESTINAL: She has had some nausea and vomiting. No diarrhea. No black or bloody stools. GENITOURINARY: . PULMONARY: She does have shortness of breath, lot of cough and sputum that is . NEUROLOGIC: Right-sided weakness. PHYSICAL EXAMINATION: GENERAL: Shows to be elderly female, in no respiratory distress. Oxygen in place. VITAL SIGNS: Her blood pressure is between 105/50 to 115/66 and temperature 98 degrees, although T-max of 99.7 degree was noted. NECK: Supple. No jugular venous distention. No abdominojugular reflux noted. LUNGS: Noted crackles at the bases bilaterally. CARDIAC: Regular rate and rhythm. Faint holosystolic regurgitant murmur is noted. ABDOMEN: Obese. Positive bowel sounds. Nontender. EXTREMITIES: There is no significant clubbing, cyanosis or edema. NEUROLOGIC: She is awake, alert, responsive. Right side appears to be weak. LABORATORY AND DIAGNOSTIC DATA: White count of 8.8, hemoglobin 12.1, and platelet count of 192. Sodium is 137, potassium 4.2, chloride 102, bicarbonate 29, BUN 37, creatinine 1.6 and a glucose of 252. Calcium is 8.4. Troponin on three separate occasions are negative. ProBNP is only 1497. Her INR 0.9 and a PTT of 29. Urinalysis shows too numerous to count wbc's previously, but no urine is available at this time. ASSESSMENT AND PLAN: 1. Chronic congestive heart failure with possible acute component. 2. Cardiomyopathy, ejection fraction 25% and with significant mitral regurgitation and tricuspid regurgitation. 3. Pulmonary hypertension. 4. History of CVA. 5. Peripheral neuropathy. 6. History of cervical cancer. Dr. Nolen, this patient was seen in cardiac consultation. The patient has had an echocardiogram just performed that as before shows significant left ventricular systolic dysfunction with difficult study, ejection fraction 25%-30% and severe mitral regurgitation, moderate tricuspid regurgitation, pulmonary artery systolic pressures of 53. In direct comparison with prior echocardiogram that was performed in July 2017, there does not appear to be any significant change. She has recurrent hospitalization for congestive heart failure back in November and again in September and again in July. Because of this recurrent hospitalization and the presence of significant regurgitation, one may consider MitraClip as an option to treat this congestive heart failure for this patient. Of course, this procedure is not available here, will need to be addressed in the future at [facility] or elsewhere that she can get to, if she is eligible for a facility like that. Nevertheless in the interim, she should be receiving guideline directed medical therapy with consideration for Entresto therapy, I will need to make sure that the patient does not take the JAROCHO inhibitors, in the future should consider possibility of a MitraClip to help prevent the frequency of the hospitalization. Chun Morejon M.D. DR: MACIE JOB#: [id number] CC:
[2017-12-26] MEDS: NovoLOG Insulin Flexpen SUBQ SCH ×4 (06:09→21:05)
[2017-12-26 08:00] VITALS: BP 124/68
[2017-12-26] MEDS: Lyrica 50mg cap ORAL SCH ×2 (08:33→17:18)
[2017-12-26] MEDS: Aspirin EC 81mg tab ORAL SCH (08:33)
[2017-12-26] MEDS: Heparin 5000 units/ml inj SUBQ SCH ×2 (08:36→21:06)
[2017-12-26 09:21] LABS: BASOPHILS % (AUTO) 0.7 % (0.0-2.0); EOSINOPHILS % (AUTO) 3.3 % (0.0-3.0); HEMATOCRIT 36.3 % (37.0-47.0); HEMOGLOBIN 11.6 G/DL (12.0-16.0); LYMPHOCYTES % (AUTO) 13.3 % (20.0-45.0); MEAN CORPUSCULAR VOLUME 84 FL (80-99); MONOCYTES % (AUTO) 9.6 % (1.0-10.0); NEUTROPHILS % (AUTO) 73.1 % (45.0-75.0); PLATELET COUNT 173 K/UL (150-450); RED BLOOD COUNT 4.34 M/UL (4.20-5.40); RED CELL DISTRIBUTION WIDTH 14.2 % (11.6-14.8)
[2017-12-26 09:47] LABS: ALANINE AMINOTRANSFERASE 15 U/L (12-78); ALBUMIN 2.6 G/DL (3.4-5.0); ALBUMIN/GLOBULIN RATIO 0.5 (1.0-2.7); ALKALINE PHOSPHATASE 106 U/L (46-116); ANION GAP 6 mmol/L (5-15); ASPARTATE AMINO TRANSFERASE 14 U/L (15-37); BILIRUBIN,TOTAL 0.3 MG/DL (0.2-1.0); BLOOD UREA NITROGEN 42 mg/dL (7-18); CALCIUM 8.3 MG/DL (8.5-10.1); CARBON DIOXIDE 30 MMOL/L (21-32); CHLORIDE 102 MMOL/L (98-107); CREATININE 1.7 MG/DL (0.55-1.30); POTASSIUM 4.1 MMOL/L (3.5-5.1); SODIUM 138 MMOL/L (136-145)
--- NOTE | 2017-12-26 10:56 | Diagnostic Imaging Report ---
Indication: Dyspnea Comparison: 12/23/2017 A single view chest radiograph was obtained. Findings: Hazy groundglass opacities are present within the lungs. Prominent vascularity and heart size noted. There is a pacemaker on the left. IMPRESSION: Infiltrate versus interstitial edema. Correlate clinically
--- NOTE | 2017-12-26 11:57 | Pulmonology Progress Note ---
Assessment/Plan Problems: (1) CHF exacerbation (2) ATN (acute tubular necrosis) (3) COPD (chronic obstructive pulmonary disease) (4) EF 25% (5) Hemiparesis, right (6) Diabetes mellitus Assessment/Plan hold diuretics for now, cardio note appreciated respiratory treatment check electrolytes symptomatic treatment titrate fio2 to sat of 92% Subjective ROS Limited/Unobtainable: No Constitutional: Reports: no symptoms HEENT: Repors: no symptoms Allergies: Coded Allergies: No Known Allergies (Unverified , 12/18/16) Objective Last 24 Hour Vital Signs Date Time Temp Pulse Resp B/P (MAP) Pulse Ox O2 Delivery O2 Flow Rate FiO2 12/26/17 09:00 Nasal Cannula 2.0 12/26/17 08:33 85 12/26/17 08:00 97.4 85 18 124/68 (86) 97 97.4 12/26/17 08:00 85 12/26/17 07:05 Nasal Cannula 2.0 28 12/26/17 07:05 85 20 Nasal Cannula 2.0 28 12/26/17 07:05 97 Nasal Cannula 2.0 28 12/26/17 06:00 76 12/26/17 04:00 97.4 77 18 116/57 (76) 98 97.4 12/26/17 00:00 75 12/26/17 00:00 97.5 75 16 113/55 (74) 98 97.5 12/25/17 21:00 Nasal Cannula 2.0 12/25/17 21:00 98/55 12/25/17 20:26 68 110/62 12/25/17 20:20 85 22 Nasal Cannula 2.0 28 12/25/17 20:20 Nasal Cannula 2.0 28 12/25/17 20:20 97 Nasal Cannula 2.0 28 12/25/17 20:00 84 12/25/17 20:00 98.1 86 18 105/52 (69) 95 98.1 12/25/17 16:00 99.7 91 20 115/66 (82) 99 99.7 12/25/17 15:45 88 12/25/17 14:10 86 20 Nasal Cannula 2.0 28 12/25/17 14:10 Nasal Cannula 2.0 28 12/25/17 14:10 95 Nasal Cannula 2.0 28 12/25/17 12:00 97.9 90 20 105/45 (65) 98 97.9 Intake and Output 12/25/17 12/26/17 19:00 07:00 Intake Total 960 ml Output Total 5 ml Balance 960 ml -5 ml Intake Oral 960 ml Output Urine Total 5 ml # Voids 4 General Appearance: WD/WN HEENT: normocephalic, atraumatic Respiratory/Chest: chest wall non-tender, lungs clear Breasts: no masses Cardiovascular: normal peripheral pulses, normal rate Abdomen: normal bowel sounds, soft, non tender Extremities: no cyanosis Skin: no rash Microbiology Date/Time Source Procedure Growth Status 12/23/17 21:17 Blood Blood Culture - Preliminary NO GROWTH AFTER 48 HOURS Resulted 12/23/17 21:07 Blood Blood Culture - Preliminary NO GROWTH AFTER 48 HOURS Resulted 12/23/17 23:00 Nose MRSA Culture - Final NO METHICILLIN RESISTANT STAPH AUREUS... Complete 12/23/17 23:00 Rectum - Final NO CARBAPENEM-RESISTANT ENTEROBACTERI... Complete 12/23/17 23:00 Rectum VRE Culture - Final NO VANCOMYCIN RESISTANT ENTEROCOCCUS ... Complete Laboratory Tests 12/26/17 09:13: White Blood Count 11.0H, Red Blood Count 4.34, Hemoglobin 11.6L, Hematocrit 36.3L, Mean Corpuscular Volume 84, Mean Corpuscular Hemoglobin 26.7L, Mean Corpuscular Hemoglobin Concent 32.0, Red Cell Distribution Width 14.2, Platelet Count 173, Mean Platelet Volume 9.9, Neutrophils (%) (Auto) 73.1, Lymphocytes (% ) (Auto) 13.3L, Monocytes (%) (Auto) 9.6, Eosinophils (%) (Auto) 3.3H, Basophils (%) (Auto) 0.7, Sodium Level 138, Potassium Level 4.1, Chloride Level 102, Carbon Dioxide Level 30, Anion Gap 6, Blood Urea Nitrogen 42H, Creatinine 1.7H, Estimat Glomerular Filtration Rate 29.7, Glucose Level 357#H, Calcium Level 8.3L, Total Bilirubin 0.3, Aspartate Amino Transf (AST/SGOT) 14L, Alanine Aminotransferase (ALT/SGPT) 15, Alkaline Phosphatase 106, Pro-B-Type Natriuretic Peptide 1255H, Total Protein 7.4, Albumin 2.6L, Globulin 4.8, Albumin/Globulin Ratio 0.5L Current Medications Medications (Trade) Dose Ordered Sig/[place] Route PRN Reason Start Time Stop Time Status Last Admin Dose Admin Acetaminophen (Tylenol) 650 mg Q4H PRN ORAL Fever 12/24/17 00:00 01/23/18 00:00 12/24/17 04:15 Acetaminophen/ Hydrocodone Bitart ([place] 5/325) 1 tab Q4H PRN ORAL Moderate Pain (Pain Scale 4-6) 12/24/17 09:30 12/31/17 09:29 12/25/17 00:55 Albuterol/ Ipratropium (Albuterol/ Ipratropium) 3 ml EVERY 4 HOURS PRN HHN Shortness of Breath 12/24/17 00:00 12/29/17 00:00 Aspirin (Ecotrin) 81 mg DAILY ORAL 12/24/17 09:00 01/23/18 08:59 12/26/17 08:33 Atorvastatin Calcium (Lipitor) 40 mg BEDTIME ORAL 12/24/17 21:00 01/23/18 20:59 12/25/17 20:26 Clopidogrel Bisulfate (Plavix) 75 mg DAILY ORAL 12/24/17 09:00 01/23/18 08:59 12/26/17 08:33 Dextrose (Dextrose 50%) STAT PRN IV Hypoglycemia 12/24/17 00:00 01/23/18 00:00 Dextrose (Dextrose 50%) STAT PRN IV Hypoglycemia 12/24/17 00:00 01/23/18 00:00 Digoxin (Lanoxin) 0.25 mg DAILY ORAL 12/24/17 09:00 01/23/18 08:59 12/26/17 08:33 Gabapentin (Neurontin) 300 mg EVERY 8 HOURS ORAL 12/24/17 06:00 01/23/18 05:59 12/26/17 11:49 Heparin Sodium (Porcine) (Heparin 5000 units/ml) 5,000 units EVERY 12 HOURS SUBQ 12/24/17 09:00 01/23/18 08:59 12/26/17 08:36 Insulin Aspart (NovoLOG) BEFORE MEALS AND HS SUBQ 12/24/17 06:30 01/23/18 06:29 12/26/17 11:48 Lisinopril (Zestril) 2.5 mg DAILY@2100 ORAL 12/25/17 21:00 01/24/18 20:59 Ondansetron HCl (Zofran) 4 mg Q6H PRN IVP Nausea & Vomiting 12/24/17 00:00 01/23/18 00:00 Pantoprazole (Protonix) 40 mg DAILY ORAL 12/24/17 09:00 01/23/18 08:59 12/26/17 08:33 Polyethylene Glycol (Miralax) 17 gm DAILYPRN PRN ORAL Constipation 12/24/17 00:00 01/23/18 00:00 Pregabalin (Lyrica) 50 mg BID ORAL 12/24/17 09:00 01/23/18 08:59 12/26/17 08:33 Temazepam (Restoril) 15 mg HSPRN PRN ORAL Insomnia 12/24/17 00:00 12/31/17 00:00 12/25/17 00:54 Ida Nolen MD Dec 26, 2017 11:57
[2017-12-26 12:00] VITALS: BP 127/65
--- NOTE | 2017-12-26 14:30 | Cardiology Progress Note ---
Assessment/Plan Assessment/Plan 1. Chronic congestive heart failure with acute component. 2. Cardiomyopathy, ejection fraction 25% 3. Pulmonary hypertension. 4. History of CVA. 5. Peripheral neuropathy. 6. History of cervical cancer. 7. sig MR and TR 8. cardio renal cr increased diuretic held due to increased cr but did receive a dose yest she may need resumed as a shift in staling curve may help i started on acei last nite but low dose will watch k and cr she should be considered for mitraclip at some point to improve forward flow entresto not available here off bb deu to acute exacerbation of chf for 1-2 days will probably resuem tomorrow or the next day may need to be tolerant of cr in the 1.5-1.7 range Subjective Cardiovascular: Denies: chest pain, lightheadedness Respiratory: Reports: shortness of breath Gastrointestinal/Abdominal: Denies: abdominal pain Genitourinary: Denies: burning Objective Last 24 Hour Vital Signs Date Time Temp Pulse Resp B/P (MAP) Pulse Ox O2 Delivery O2 Flow Rate FiO2 12/26/17 12:00 83 12/26/17 12:00 96.9 91 18 127/65 (85) 97 96.9 12/26/17 09:00 Nasal Cannula 2.0 12/26/17 08:33 85 12/26/17 08:00 97.4 85 18 124/68 (86) 97 97.4 12/26/17 08:00 85 12/26/17 07:05 Nasal Cannula 2.0 28 12/26/17 07:05 85 20 Nasal Cannula 2.0 28 12/26/17 07:05 97 Nasal Cannula 2.0 28 12/26/17 06:00 76 12/26/17 04:00 97.4 77 18 116/57 (76) 98 97.4 12/26/17 00:00 75 12/26/17 00:00 97.5 75 16 113/55 (74) 98 97.5 12/25/17 21:00 Nasal Cannula 2.0 12/25/17 21:00 98/55 12/25/17 20:26 68 110/62 12/25/17 20:20 85 22 Nasal Cannula 2.0 28 12/25/17 20:20 Nasal Cannula 2.0 28 12/25/17 20:20 97 Nasal Cannula 2.0 28 12/25/17 20:00 84 12/25/17 20:00 98.1 86 18 105/52 (69) 95 98.1 12/25/17 16:00 99.7 91 20 115/66 (82) 99 99.7 12/25/17 15:45 88 General Appearance: alert Cardiovascular: normal rate, systolic murmur Respiratory/Chest: crackles/rales - few left basialr Abdomen: non tender, soft Extremities: trace edema Intake and Output 12/25/17 12/26/17 19:00 07:00 Intake Total 960 ml Output Total 5 ml Balance 960 ml -5 ml Intake Oral 960 ml Output Urine Total 5 ml # Voids 4 Laboratory Tests Test 12/26/17 09:13 White Blood Count 11.0 K/UL (4.8-10.8) H Red Blood Count 4.34 M/UL (4.20-5.40) Hemoglobin 11.6 G/DL (12.0-16.0) L Hematocrit 36.3 % (37.0-47.0) L Mean Corpuscular Volume 84 FL (80-99) Mean Corpuscular Hemoglobin 26.7 PG (27.0-31.0) L Mean Corpuscular Hemoglobin Concent 32.0 G/DL (32.0-36.0) Red Cell Distribution Width 14.2 % (11.6-14.8) Platelet Count 173 K/UL (150-450) Mean Platelet Volume 9.9 FL (6.5-10.1) Neutrophils (%) (Auto) 73.1 % (45.0-75.0) Lymphocytes (%) (Auto) 13.3 % (20.0-45.0) L Monocytes (%) (Auto) 9.6 % (1.0-10.0) Eosinophils (%) (Auto) 3.3 % (0.0-3.0) H Basophils (%) (Auto) 0.7 % (0.0-2.0) Sodium Level 138 MMOL/L (136-145) Potassium Level 4.1 MMOL/L (3.5-5.1) Chloride Level 102 MMOL/L (98-107) Carbon Dioxide Level 30 MMOL/L (21-32) Anion Gap 6 mmol/L (5-15) Blood Urea Nitrogen 42 mg/dL (7-18) H Creatinine 1.7 MG/DL (0.55-1.30) H Estimat Glomerular Filtration Rate 29.7 mL/min (>60) Glucose Level 357 MG/DL (74-106) #H Calcium Level 8.3 MG/DL (8.5-10.1) L Total Bilirubin 0.3 MG/DL (0.2-1.0) Aspartate Amino Transf (AST/SGOT) 14 U/L (15-37) L Alanine Aminotransferase (ALT/SGPT) 15 U/L (12-78) Alkaline Phosphatase 106 U/L (46-116) Pro-B-Type Natriuretic Peptide 1255 pg/mL (0-125) H Total Protein 7.4 G/DL (6.4-8.2) Albumin 2.6 G/DL (3.4-5.0) L Globulin 4.8 g/dL Albumin/Globulin Ratio 0.5 (1.0-2.7) L Microbiology Date/Time Source Procedure Growth Status 12/23/17 21:17 Blood Blood Culture - Preliminary NO GROWTH AFTER 48 HOURS Resulted 12/23/17 21:07 Blood Blood Culture - Preliminary NO GROWTH AFTER 48 HOURS Resulted 12/23/17 23:00 Nose MRSA Culture - Final NO METHICILLIN RESISTANT STAPH AUREUS... Complete 12/23/17 23:00 Rectum - Final NO CARBAPENEM-RESISTANT ENTEROBACTERI... Complete 12/23/17 23:00 Rectum VRE Culture - Final NO VANCOMYCIN RESISTANT ENTEROCOCCUS ... Complete Chun Morejon MD Dec 26, 2017 14:30
[2017-12-26] MEDS ORDERED: LORazepam 1mg tab ORAL PRN (15:30)
[2017-12-26 16:00] VITALS: BP 111/56
[2017-12-26] MEDS: Norco 5mg/325mg tab ORAL PRN (16:04)
--- NOTE | 2017-12-26 18:10 | Internal Med Progress Note ---
Subjective Date of Service: Dec 26, 2017 Physician Name Ash Li Attending Physician Brendan Wright MD Current Medications Medications (Trade) Dose Ordered Sig/[place] Route PRN Reason Start Time Stop Time Status Last Admin Dose Admin Acetaminophen (Tylenol) 650 mg Q4H PRN ORAL Fever 12/24/17 00:00 01/23/18 00:00 12/24/17 04:15 Acetaminophen/ Hydrocodone Bitart ([place] 5/325) 1 tab Q4H PRN ORAL Moderate Pain (Pain Scale 4-6) 12/24/17 09:30 12/31/17 09:29 12/26/17 16:04 Albuterol/ Ipratropium (Albuterol/ Ipratropium) 3 ml EVERY 4 HOURS PRN HHN Shortness of Breath 12/24/17 00:00 12/29/17 00:00 Aspirin (Ecotrin) 81 mg DAILY ORAL 12/24/17 09:00 01/23/18 08:59 12/26/17 08:33 Atorvastatin Calcium (Lipitor) 40 mg BEDTIME ORAL 12/24/17 21:00 01/23/18 20:59 12/25/17 20:26 Clopidogrel Bisulfate (Plavix) 75 mg DAILY ORAL 12/24/17 09:00 01/23/18 08:59 12/26/17 08:33 Dextrose (Dextrose 50%) STAT PRN IV Hypoglycemia 12/24/17 00:00 01/23/18 00:00 Dextrose (Dextrose 50%) STAT PRN IV Hypoglycemia 12/24/17 00:00 01/23/18 00:00 Digoxin (Lanoxin) 0.25 mg DAILY ORAL 12/24/17 09:00 01/23/18 08:59 12/26/17 08:33 Escitalopram Oxalate (Lexapro) 10 mg DAILY ORAL 12/27/17 09:00 01/26/18 08:59 Gabapentin (Neurontin) 300 mg EVERY 8 HOURS ORAL 12/24/17 06:00 01/23/18 05:59 12/26/17 11:49 Heparin Sodium (Porcine) (Heparin 5000 units/ml) 5,000 units EVERY 12 HOURS SUBQ 12/24/17 09:00 01/23/18 08:59 12/26/17 08:36 Insulin Aspart (NovoLOG) BEFORE MEALS AND HS SUBQ 12/24/17 06:30 01/23/18 06:29 12/26/17 17:19 Lisinopril (Zestril) 2.5 mg DAILY@2100 ORAL 12/25/17 21:00 01/24/18 20:59 Lorazepam (Ativan) 2 mg Q6H PRN ORAL For Anxiety 12/26/17 15:30 01/02/18 15:29 Ondansetron HCl (Zofran) 4 mg Q6H PRN IVP Nausea & Vomiting 12/24/17 00:00 01/23/18 00:00 Pantoprazole (Protonix) 40 mg DAILY ORAL 12/24/17 09:00 01/23/18 08:59 12/26/17 08:33 Polyethylene Glycol (Miralax) 17 gm DAILYPRN PRN ORAL Constipation 12/24/17 00:00 01/23/18 00:00 Pregabalin (Lyrica) 50 mg BID ORAL 12/24/17 09:00 01/23/18 08:59 12/26/17 17:18 Temazepam (Restoril) 15 mg HSPRN PRN ORAL Insomnia 12/24/17 00:00 12/31/17 00:00 12/25/17 00:54 Allergies: Coded Allergies: No Known Allergies (Unverified , 12/18/16) ROS Limited/Unobtainable: No Constitutional: Reports: no symptoms HEENT: Reports: no symptoms Cardiovascular: Reports: no symptoms Respiratory: Reports: shortness of breath Gastrointestinal/Abdominal: Reports: no symptoms Genitourinary: Reports: no symptoms 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: Reports: no symptoms Subjective 72 YO F admitted with dyspnea. Now chuckie heart failure. Cover for Int Med-Dr Wright Objective Last Vital Signs Date Time Temp Pulse Resp B/P (MAP) Pulse Ox O2 Delivery O2 Flow Rate FiO2 12/26/17 17:03 96.9 12/26/17 16:00 88 18 111/56 (74) 97 12/26/17 09:00 Nasal Cannula 2.0 12/26/17 07:05 28 Laboratory Tests Test 12/26/17 09:13 White Blood Count 11.0 K/UL (4.8-10.8) H Red Blood Count 4.34 M/UL (4.20-5.40) Hemoglobin 11.6 G/DL (12.0-16.0) L Hematocrit 36.3 % (37.0-47.0) L Mean Corpuscular Volume 84 FL (80-99) Mean Corpuscular Hemoglobin 26.7 PG (27.0-31.0) L Mean Corpuscular Hemoglobin Concent 32.0 G/DL (32.0-36.0) Red Cell Distribution Width 14.2 % (11.6-14.8) Platelet Count 173 K/UL (150-450) Mean Platelet Volume 9.9 FL (6.5-10.1) Neutrophils (%) (Auto) 73.1 % (45.0-75.0) Lymphocytes (%) (Auto) 13.3 % (20.0-45.0) L Monocytes (%) (Auto) 9.6 % (1.0-10.0) Eosinophils (%) (Auto) 3.3 % (0.0-3.0) H Basophils (%) (Auto) 0.7 % (0.0-2.0) Sodium Level 138 MMOL/L (136-145) Potassium Level 4.1 MMOL/L (3.5-5.1) Chloride Level 102 MMOL/L (98-107) Carbon Dioxide Level 30 MMOL/L (21-32) Anion Gap 6 mmol/L (5-15) Blood Urea Nitrogen 42 mg/dL (7-18) H Creatinine 1.7 MG/DL (0.55-1.30) H Estimat Glomerular Filtration Rate 29.7 mL/min (>60) Glucose Level 357 MG/DL (74-106) #H Calcium Level 8.3 MG/DL (8.5-10.1) L Total Bilirubin 0.3 MG/DL (0.2-1.0) Aspartate Amino Transf (AST/SGOT) 14 U/L (15-37) L Alanine Aminotransferase (ALT/SGPT) 15 U/L (12-78) Alkaline Phosphatase 106 U/L (46-116) Pro-B-Type Natriuretic Peptide 1255 pg/mL (0-125) H Total Protein 7.4 G/DL (6.4-8.2) Albumin 2.6 G/DL (3.4-5.0) L Globulin 4.8 g/dL Albumin/Globulin Ratio 0.5 (1.0-2.7) L Microbiology Date/Time Source Procedure Growth Status 12/23/17 21:17 Blood Blood Culture - Preliminary NO GROWTH AFTER 48 HOURS Resulted 12/23/17 21:07 Blood Blood Culture - Preliminary NO GROWTH AFTER 48 HOURS Resulted 12/23/17 23:00 Nose MRSA Culture - Final NO METHICILLIN RESISTANT STAPH AUREUS... Complete 12/23/17 23:00 Rectum - Final NO CARBAPENEM-RESISTANT ENTEROBACTERI... Complete 12/23/17 23:00 Rectum VRE Culture - Final NO VANCOMYCIN RESISTANT ENTEROCOCCUS ... Complete Intake and Output 12/25/17 12/26/17 19:00 07:00 Intake Total 960 ml Output Total 5 ml Balance 960 ml -5 ml Intake Oral 960 ml Output Urine Total 5 ml # Voids 4 Objective General Appearance: WD/WN, no apparent distress, alert EENT: PERRL/EOMI, normal ENT inspection, TMs normal Neck: supple, normal inspection Cardiovascular: normal peripheral pulses, normal rate, regular rhythm, no gallop/murmur, no JVD Respiratory/Chest: chest wall non-tender, respiratory distress, decreased breath sounds, accessory muscle use, crackles/rales, expiratory wheezing Abdomen: normal bowel sounds, non tender, soft, no organomegaly, no mass Extremities: normal range of motion, non-tender 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 Continue lasix; hold coreg-see cardiology consult (3) EF 25% (4) Hemiparesis, right (5) COPD (chronic obstructive pulmonary disease) Assessment & Plan: see pulmonary note. (6) Cardiomyopathy (7) HTN (hypertension) Assessment & Plan: continue coreg (8) Cerebral vascular disease Assessment & Plan: continue plavix (9) Iron deficiency anemia (10) LBBB (left bundle branch block) (11) AICD (automatic cardioverter/defibrillator) present Status: progressing Ash Li MD Dec 26, 2017 18:10
[2017-12-26 19:39] VITALS: BP 113/65
[2017-12-26] MEDS: Lisinopril 2.5mg tab ORAL SCH (21:02)
[2017-12-27 00:42] VITALS: BP 122/50
[2017-12-27 04:00] VITALS: BP 133/71
[2017-12-27] MEDS: NovoLOG Insulin Flexpen SUBQ SCH ×4 (06:10→22:06)
[2017-12-27 08:00] VITALS: BP 113/56
[2017-12-27] MEDS: Lyrica 50mg cap ORAL SCH ×2 (08:14→17:18)
[2017-12-27] MEDS: Aspirin EC 81mg tab ORAL SCH (08:14)
[2017-12-27] MEDS: Heparin 5000 units/ml inj SUBQ SCH ×2 (08:17→22:07)
[2017-12-27 09:24] LABS: EOSINOPHILS % (AUTO) 3.7 % (0.0-3.0); HEMATOCRIT 38.6 % (37.0-47.0); HEMOGLOBIN 12.1 G/DL (12.0-16.0); LYMPHOCYTES % (AUTO) 15.9 % (20.0-45.0); MEAN CORPUSCULAR VOLUME 84 FL (80-99); MONOCYTES % (AUTO) 8.5 % (1.0-10.0); NEUTROPHILS % (AUTO) 70.9 % (45.0-75.0); PLATELET COUNT 199 K/UL (150-450); RED BLOOD COUNT 4.61 M/UL (4.20-5.40); RED CELL DISTRIBUTION WIDTH 14.4 % (11.6-14.8); WHITE BLOOD COUNT 9.5 K/UL (4.8-10.8)
[2017-12-27 09:27] LABS: ANION GAP 4 mmol/L (5-15); BLOOD UREA NITROGEN 39 mg/dL (7-18); CALCIUM 8.5 MG/DL (8.5-10.1); CARBON DIOXIDE 30 MMOL/L (21-32); CHLORIDE 104 MMOL/L (98-107); CREATININE 1.5 MG/DL (0.55-1.30); POTASSIUM 4.2 MMOL/L (3.5-5.1); SODIUM 138 MMOL/L (136-145)
[2017-12-27 11:34] VITALS: BP 125/58
--- NOTE | 2017-12-27 14:15 | General Progress Note ---
Assessment/Plan Status: stable Assessment/Plan MDD Anxiety d/o lexapro 10mg qam provided ro/st Subjective Date patient seen: Dec 27, 2017 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: Reports: anxiety, depressed, emotional problems Allergies: Coded Allergies: No Known Allergies (Unverified , 12/18/16) Subjective the pt is less anxious doing well Objective Last 24 Hour Vital Signs Date Time Temp Pulse Resp B/P (MAP) Pulse Ox O2 Delivery O2 Flow Rate FiO2 12/27/17 12:00 85 12/27/17 11:34 99.3 95 20 125/58 (80) 97 99.3 12/27/17 09:00 Nasal Cannula 2.0 12/27/17 08:14 96 12/27/17 08:00 98 12/27/17 08:00 98.2 96 20 113/56 (75) 97 98.2 12/27/17 07:14 97 Nasal Cannula 2.0 28 12/27/17 07:14 76 18 Nasal Cannula 2.0 28 12/27/17 07:14 Nasal Cannula 2.0 28 12/27/17 04:00 97.5 97 20 133/71 (91) 92 97.5 12/27/17 04:00 97 12/27/17 00:42 97.2 86 20 122/50 (74) 93 97.2 12/27/17 00:00 86 12/26/17 21:02 113/65 12/26/17 21:00 Nasal Cannula 2.0 12/26/17 20:00 87 12/26/17 19:39 97.9 78 20 113/65 (81) 92 97.9 12/26/17 19:38 80 20 Nasal Cannula 2.0 28 12/26/17 19:38 Nasal Cannula 2.0 28 12/26/17 19:38 98 Nasal Cannula 2.0 28 12/26/17 17:03 96.9 12/26/17 16:04 96.9 12/26/17 16:00 99.7 88 18 111/56 (74) 97 99.7 12/26/17 16:00 87 Intake and Output 12/26/17 12/27/17 19:00 07:00 Intake Total 630 ml Output Total 1100 ml Balance -470 ml Intake Oral 630 ml Output Urine Total 1100 ml # Voids 2 # Bowel Movements 1 Laboratory Tests 12/27/17 09:05: White Blood Count 9.5, Red Blood Count 4.61, Hemoglobin 12.1, Hematocrit 38.6, Mean Corpuscular Volume 84, Mean Corpuscular Hemoglobin 26.3L, Mean Corpuscular Hemoglobin Concent 31.4L, Red Cell Distribution Width 14.4, Platelet Count 199, Mean Platelet Volume 9.9, Neutrophils (%) (Auto) 70.9, Lymphocytes (%) (Auto) 15.9L, Monocytes (%) (Auto) 8.5, Eosinophils (%) (Auto) 3.7H, Basophils (%) ( Auto) 1.0, Sodium Level 138, Potassium Level 4.2, Chloride Level 104, Carbon Dioxide Level 30, Anion Gap 4L, Blood Urea Nitrogen 39H, Creatinine 1.5H, Estimat Glomerular Filtration Rate 34.4, Glucose Level 286H, Calcium Level 8.5, Digoxin Level 1.1 Height (Feet): 5 Height (Inches): 1.00 Weight (Pounds): 176 General Appearance: no apparent distress, alert Neurologic: oriented x 3, responsive, depressed affect Teresa Douglas MD Dec 27, 2017 14:15
--- NOTE | 2017-12-27 14:34 | Pulmonology Progress Note ---
Assessment/Plan Problems: (1) CHF exacerbation (2) ATN (acute tubular necrosis) (3) COPD (chronic obstructive pulmonary disease) (4) EF 25% (5) Hemiparesis, right (6) Diabetes mellitus Assessment/Plan feeling better cxr doens't show much edema creatinine decreasing cardio note appreciated respiratory treatment check electrolytes symptomatic treatment titrate fio2 to sat of 92% Subjective ROS Limited/Unobtainable: No Constitutional: Reports: no symptoms HEENT: Repors: no symptoms Respiratory: Reports: no symptoms Allergies: Coded Allergies: No Known Allergies (Unverified , 12/18/16) Objective Last 24 Hour Vital Signs Date Time Temp Pulse Resp B/P (MAP) Pulse Ox O2 Delivery O2 Flow Rate FiO2 12/27/17 12:00 85 12/27/17 11:34 99.3 95 20 125/58 (80) 97 99.3 12/27/17 09:00 Nasal Cannula 2.0 12/27/17 08:14 96 12/27/17 08:00 98 12/27/17 08:00 98.2 96 20 113/56 (75) 97 98.2 12/27/17 07:14 97 Nasal Cannula 2.0 28 12/27/17 07:14 76 18 Nasal Cannula 2.0 28 12/27/17 07:14 Nasal Cannula 2.0 28 12/27/17 04:00 97.5 97 20 133/71 (91) 92 97.5 12/27/17 04:00 97 12/27/17 00:42 97.2 86 20 122/50 (74) 93 97.2 12/27/17 00:00 86 12/26/17 21:02 113/65 12/26/17 21:00 Nasal Cannula 2.0 12/26/17 20:00 87 12/26/17 19:39 97.9 78 20 113/65 (81) 92 97.9 12/26/17 19:38 80 20 Nasal Cannula 2.0 28 12/26/17 19:38 Nasal Cannula 2.0 28 12/26/17 19:38 98 Nasal Cannula 2.0 28 12/26/17 17:03 96.9 12/26/17 16:04 96.9 12/26/17 16:00 99.7 88 18 111/56 (74) 97 99.7 12/26/17 16:00 87 Intake and Output 12/26/17 12/27/17 19:00 07:00 Intake Total 630 ml Output Total 1100 ml Balance -470 ml Intake Oral 630 ml Output Urine Total 1100 ml # Voids 2 # Bowel Movements 1 General Appearance: WD/WN HEENT: normocephalic Respiratory/Chest: chest wall non-tender, lungs clear Breasts: no masses Cardiovascular: normal peripheral pulses Abdomen: normal bowel sounds, soft, non tender Genitourinary: normal external genitalia Extremities: no cyanosis 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, no motor/sensory deficits Laboratory Tests 12/27/17 09:05: White Blood Count 9.5, Red Blood Count 4.61, Hemoglobin 12.1, Hematocrit 38.6, Mean Corpuscular Volume 84, Mean Corpuscular Hemoglobin 26.3L, Mean Corpuscular Hemoglobin Concent 31.4L, Red Cell Distribution Width 14.4, Platelet Count 199, Mean Platelet Volume 9.9, Neutrophils (%) (Auto) 70.9, Lymphocytes (%) (Auto) 15.9L, Monocytes (%) (Auto) 8.5, Eosinophils (%) (Auto) 3.7H, Basophils (%) ( Auto) 1.0, Sodium Level 138, Potassium Level 4.2, Chloride Level 104, Carbon Dioxide Level 30, Anion Gap 4L, Blood Urea Nitrogen 39H, Creatinine 1.5H, Estimat Glomerular Filtration Rate 34.4, Glucose Level 286H, Calcium Level 8.5, Digoxin Level 1.1 Current Medications Medications (Trade) Dose Ordered Sig/[place] Route PRN Reason Start Time Stop Time Status Last Admin Dose Admin Acetaminophen (Tylenol) 650 mg Q4H PRN ORAL Fever 12/24/17 00:00 01/23/18 00:00 12/24/17 04:15 Acetaminophen/ Hydrocodone Bitart ([place] 5/325) 1 tab Q4H PRN ORAL Moderate Pain (Pain Scale 4-6) 12/24/17 09:30 12/31/17 09:29 12/26/17 16:04 Albuterol/ Ipratropium (Albuterol/ Ipratropium) 3 ml EVERY 4 HOURS PRN HHN Shortness of Breath 12/24/17 00:00 12/29/17 00:00 Aspirin (Ecotrin) 81 mg DAILY ORAL 12/24/17 09:00 01/23/18 08:59 12/27/17 08:14 Atorvastatin Calcium (Lipitor) 40 mg BEDTIME ORAL 12/27/17 21:00 01/23/18 20:59 Clopidogrel Bisulfate (Plavix) 75 mg DAILY ORAL 12/24/17 09:00 01/23/18 08:59 12/27/17 08:14 Dextrose (Dextrose 50%) STAT PRN IV Hypoglycemia 12/24/17 00:00 01/23/18 00:00 Dextrose (Dextrose 50%) STAT PRN IV Hypoglycemia 12/24/17 00:00 01/23/18 00:00 Digoxin (Lanoxin) 0.25 mg DAILY ORAL 12/24/17 09:00 01/23/18 08:59 12/27/17 08:14 Escitalopram Oxalate (Lexapro) 10 mg DAILY ORAL 12/27/17 09:00 01/26/18 08:59 12/27/17 08:14 Gabapentin (Neurontin) 300 mg EVERY 8 HOURS ORAL 12/26/17 22:00 01/23/18 05:59 12/27/17 14:05 Heparin Sodium (Porcine) (Heparin 5000 units/ml) 5,000 units EVERY 12 HOURS SUBQ 12/24/17 09:00 01/23/18 08:59 12/27/17 08:17 Insulin Aspart (NovoLOG) BEFORE MEALS AND HS SUBQ 12/24/17 06:30 01/23/18 06:29 12/27/17 11:50 Lisinopril (Zestril) 2.5 mg DAILY@2100 ORAL 12/25/17 21:00 01/24/18 20:59 12/26/17 21:02 Lorazepam (Ativan) 2 mg Q6H PRN ORAL For Anxiety 12/26/17 15:30 01/02/18 15:29 Ondansetron HCl (Zofran) 4 mg Q6H PRN IVP Nausea & Vomiting 12/24/17 00:00 01/23/18 00:00 Pantoprazole (Protonix) 40 mg DAILY ORAL 12/24/17 09:00 01/23/18 08:59 12/27/17 08:14 Polyethylene Glycol (Miralax) 17 gm DAILYPRN PRN ORAL Constipation 12/24/17 00:00 01/23/18 00:00 Pregabalin (Lyrica) 50 mg BID ORAL 12/24/17 09:00 01/23/18 08:59 12/27/17 08:14 Temazepam (Restoril) 15 mg HSPRN PRN ORAL Insomnia 12/24/17 00:00 12/31/17 00:00 12/25/17 00:54 Ida Nolen MD Dec 27, 2017 14:34
[2017-12-27 16:00] VITALS: BP_SYST 128; BP_SYST 95; BP_DIAS 63; BP_DIAS 64
--- NOTE | 2017-12-27 18:31 | Internal Med Progress Note ---
Subjective Date of Service: Dec 27, 2017 Physician Name Ash Li Attending Physician Brendan Wright MD Current Medications Medications (Trade) Dose Ordered Sig/[place] Route PRN Reason Start Time Stop Time Status Last Admin Dose Admin Acetaminophen (Tylenol) 650 mg Q4H PRN ORAL Fever 12/24/17 00:00 01/23/18 00:00 12/24/17 04:15 Acetaminophen/ Hydrocodone Bitart ([place] 5/325) 1 tab Q4H PRN ORAL Moderate Pain (Pain Scale 4-6) 12/24/17 09:30 12/31/17 09:29 12/26/17 16:04 Albuterol/ Ipratropium (Albuterol/ Ipratropium) 3 ml EVERY 4 HOURS PRN HHN Shortness of Breath 12/24/17 00:00 12/29/17 00:00 Aspirin (Ecotrin) 81 mg DAILY ORAL 12/24/17 09:00 01/23/18 08:59 12/27/17 08:14 Atorvastatin Calcium (Lipitor) 40 mg BEDTIME ORAL 12/27/17 21:00 01/23/18 20:59 Clopidogrel Bisulfate (Plavix) 75 mg DAILY ORAL 12/24/17 09:00 01/23/18 08:59 12/27/17 08:14 Dextrose (Dextrose 50%) STAT PRN IV Hypoglycemia 12/24/17 00:00 01/23/18 00:00 Dextrose (Dextrose 50%) STAT PRN IV Hypoglycemia 12/24/17 00:00 01/23/18 00:00 Digoxin (Lanoxin) 0.125 mg DAILY ORAL 12/29/17 09:00 01/28/18 08:59 Escitalopram Oxalate (Lexapro) 10 mg DAILY ORAL 12/27/17 09:00 01/26/18 08:59 12/27/17 08:14 Gabapentin (Neurontin) 300 mg EVERY 8 HOURS ORAL 12/26/17 22:00 01/23/18 05:59 12/27/17 14:05 Heparin Sodium (Porcine) (Heparin 5000 units/ml) 5,000 units EVERY 12 HOURS SUBQ 12/24/17 09:00 01/23/18 08:59 12/27/17 08:17 Insulin Aspart (NovoLOG) BEFORE MEALS AND HS SUBQ 12/24/17 06:30 01/23/18 06:29 12/27/17 17:19 Lisinopril (Zestril) 2.5 mg DAILY@2100 ORAL 12/25/17 21:00 01/24/18 20:59 12/26/17 21:02 Lorazepam (Ativan) 2 mg Q6H PRN ORAL For Anxiety 12/26/17 15:30 01/02/18 15:29 Ondansetron HCl (Zofran) 4 mg Q6H PRN IVP Nausea & Vomiting 12/24/17 00:00 01/23/18 00:00 Pantoprazole (Protonix) 40 mg DAILY ORAL 12/24/17 09:00 01/23/18 08:59 12/27/17 08:14 Polyethylene Glycol (Miralax) 17 gm DAILYPRN PRN ORAL Constipation 12/24/17 00:00 01/23/18 00:00 Pregabalin (Lyrica) 50 mg BID ORAL 12/24/17 09:00 01/23/18 08:59 12/27/17 17:18 Temazepam (Restoril) 15 mg HSPRN PRN ORAL Insomnia 12/24/17 00:00 12/31/17 00:00 12/25/17 00:54 Allergies: Coded Allergies: No Known Allergies (Unverified , 12/18/16) ROS Limited/Unobtainable: No Constitutional: Reports: no symptoms HEENT: Reports: no symptoms Cardiovascular: Reports: no symptoms Respiratory: Reports: shortness of breath Gastrointestinal/Abdominal: Reports: no symptoms Genitourinary: Reports: no symptoms 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: Reports: no symptoms Subjective 72 YO F admitted with dyspnea. Now chuckie heart failure. Cover for Int Med-Dr Wright Objective Last Vital Signs Date Time Temp Pulse Resp B/P (MAP) Pulse Ox O2 Delivery O2 Flow Rate FiO2 12/27/17 16:00 99.5 85 20 128/63 (84) 95 99.5 12/27/17 09:00 Nasal Cannula 2.0 12/27/17 07:14 28 Laboratory Tests Test 12/27/17 09:05 White Blood Count 9.5 K/UL (4.8-10.8) Red Blood Count 4.61 M/UL (4.20-5.40) Hemoglobin 12.1 G/DL (12.0-16.0) Hematocrit 38.6 % (37.0-47.0) Mean Corpuscular Volume 84 FL (80-99) Mean Corpuscular Hemoglobin 26.3 PG (27.0-31.0) L Mean Corpuscular Hemoglobin Concent 31.4 G/DL (32.0-36.0) L Red Cell Distribution Width 14.4 % (11.6-14.8) Platelet Count 199 K/UL (150-450) Mean Platelet Volume 9.9 FL (6.5-10.1) Neutrophils (%) (Auto) 70.9 % (45.0-75.0) Lymphocytes (%) (Auto) 15.9 % (20.0-45.0) L Monocytes (%) (Auto) 8.5 % (1.0-10.0) Eosinophils (%) (Auto) 3.7 % (0.0-3.0) H Basophils (%) (Auto) 1.0 % (0.0-2.0) Sodium Level 138 MMOL/L (136-145) Potassium Level 4.2 MMOL/L (3.5-5.1) Chloride Level 104 MMOL/L (98-107) Carbon Dioxide Level 30 MMOL/L (21-32) Anion Gap 4 mmol/L (5-15) L Blood Urea Nitrogen 39 mg/dL (7-18) H Creatinine 1.5 MG/DL (0.55-1.30) H Estimat Glomerular Filtration Rate 34.4 mL/min (>60) Glucose Level 286 MG/DL (74-106) H Calcium Level 8.5 MG/DL (8.5-10.1) Digoxin Level 1.1 NG/ML (0.9-2.0) Intake and Output 12/26/17 12/27/17 19:00 07:00 Intake Total 630 ml Output Total 1100 ml Balance -470 ml Intake Oral 630 ml Output Urine Total 1100 ml # Voids 2 # Bowel Movements 1 Objective General Appearance: WD/WN, no apparent distress, alert EENT: PERRL/EOMI, normal ENT inspection, TMs normal Neck: supple, normal inspection Cardiovascular: normal peripheral pulses, normal rate, regular rhythm, no gallop/murmur, no JVD Respiratory/Chest: chest wall non-tender, respiratory distress, decreased breath sounds, accessory muscle use, crackles/rales, expiratory wheezing Abdomen: normal bowel sounds, non tender, soft, no organomegaly, no mass Extremities: normal range of motion, non-tender 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 Continue lasix; hold coreg-see cardiology consult (3) EF 25% (4) Hemiparesis, right (5) COPD (chronic obstructive pulmonary disease) Assessment & Plan: see pulmonary note. (6) Cardiomyopathy (7) HTN (hypertension) Assessment & Plan: continue coreg (8) Cerebral vascular disease Assessment & Plan: continue plavix (9) Iron deficiency anemia (10) LBBB (left bundle branch block) (11) AICD (automatic cardioverter/defibrillator) present Status: progressing Assessment/Plan Discharge planning Ash Li MD Dec 27, 2017 18:31
--- NOTE | 2017-12-27 19:49 | Cardiology Progress Note ---
Assessment/Plan Assessment/Plan 1. Chronic congestive heart failure with acute component. 2. Cardiomyopathy, ejection fraction 25% 3. Pulmonary hypertension. 4. History of CVA. 5. Peripheral neuropathy. 6. History of cervical cancer. 7. sig MR and TR 8. cardio renal cr imporved she feel better increase acei for now low dsoe bb diuretic to be resume po in future would consider entresto but needs to be off acei for 36 hour before starting and will need fu for consideration for mitraclip referral Subjective Cardiovascular: Denies: chest pain, lightheadedness Respiratory: Reports: shortness of breath - better Gastrointestinal/Abdominal: Denies: abdominal pain Genitourinary: Denies: burning Objective Last 24 Hour Vital Signs Date Time Temp Pulse Resp B/P (MAP) Pulse Ox O2 Delivery O2 Flow Rate FiO2 12/27/17 16:00 99.5 85 20 128/63 (84) 95 99.5 12/27/17 16:00 80 12/27/17 12:00 85 12/27/17 11:34 99.3 95 20 125/58 (80) 97 99.3 12/27/17 09:00 Nasal Cannula 2.0 12/27/17 08:14 96 12/27/17 08:00 98 12/27/17 08:00 98.2 96 20 113/56 (75) 97 98.2 12/27/17 07:14 97 Nasal Cannula 2.0 28 12/27/17 07:14 76 18 Nasal Cannula 2.0 28 12/27/17 07:14 Nasal Cannula 2.0 28 12/27/17 04:00 97.5 97 20 133/71 (91) 92 97.5 12/27/17 04:00 97 12/27/17 00:42 97.2 86 20 122/50 (74) 93 97.2 12/27/17 00:00 86 12/26/17 21:02 113/65 12/26/17 21:00 Nasal Cannula 2.0 12/26/17 20:00 87 General Appearance: alert Neck: supple Cardiovascular: normal rate, regular rhythm Respiratory/Chest: lungs clear Abdomen: normal bowel sounds, non tender Extremities: no swelling Intake and Output 12/26/17 12/27/17 19:00 07:00 Intake Total 630 ml Output Total 1100 ml Balance -470 ml Intake Oral 630 ml Output Urine Total 1100 ml # Voids 2 # Bowel Movements 1 Laboratory Tests Test 12/27/17 09:05 White Blood Count 9.5 K/UL (4.8-10.8) Red Blood Count 4.61 M/UL (4.20-5.40) Hemoglobin 12.1 G/DL (12.0-16.0) Hematocrit 38.6 % (37.0-47.0) Mean Corpuscular Volume 84 FL (80-99) Mean Corpuscular Hemoglobin 26.3 PG (27.0-31.0) L Mean Corpuscular Hemoglobin Concent 31.4 G/DL (32.0-36.0) L Red Cell Distribution Width 14.4 % (11.6-14.8) Platelet Count 199 K/UL (150-450) Mean Platelet Volume 9.9 FL (6.5-10.1) Neutrophils (%) (Auto) 70.9 % (45.0-75.0) Lymphocytes (%) (Auto) 15.9 % (20.0-45.0) L Monocytes (%) (Auto) 8.5 % (1.0-10.0) Eosinophils (%) (Auto) 3.7 % (0.0-3.0) H Basophils (%) (Auto) 1.0 % (0.0-2.0) Sodium Level 138 MMOL/L (136-145) Potassium Level 4.2 MMOL/L (3.5-5.1) Chloride Level 104 MMOL/L (98-107) Carbon Dioxide Level 30 MMOL/L (21-32) Anion Gap 4 mmol/L (5-15) L Blood Urea Nitrogen 39 mg/dL (7-18) H Creatinine 1.5 MG/DL (0.55-1.30) H Estimat Glomerular Filtration Rate 34.4 mL/min (>60) Glucose Level 286 MG/DL (74-106) H Calcium Level 8.5 MG/DL (8.5-10.1) Digoxin Level 1.1 NG/ML (0.9-2.0) Chun Morejon MD Dec 27, 2017 19:49
[2017-12-27 20:00] VITALS: BP 128/64
[2017-12-27] MEDS: Atorvastatin 20mg tab ORAL SCH (22:04)
[2017-12-27] MEDS: Carvedilol 6.25mg Tab ORAL SCH (22:05)
[2017-12-28] VITALS: BP 108/63
[2017-12-28 04:00] VITALS: BP 122/52
[2017-12-28] MEDS: NovoLOG Insulin Flexpen SUBQ SCH ×4 (06:11→21:16)
[2017-12-28 08:00] VITALS: BP 119/63
[2017-12-28] MEDS: Aspirin EC 81mg tab ORAL SCH (08:36)
[2017-12-28] MEDS: Lyrica 50mg cap ORAL SCH ×2 (08:36→17:44)
[2017-12-28] MEDS: Carvedilol 6.25mg Tab ORAL SCH ×2 (08:37→21:13)
[2017-12-28] MEDS: Lisinopril 2.5mg tab ORAL SCH ×2 (08:38→17:09)
[2017-12-28] MEDS: Heparin 5000 units/ml inj SUBQ SCH ×2 (08:39→21:15)
[2017-12-28] MEDS ORDERED: Furosemide 40mg tab ORAL SCH (09:00)
--- NOTE | 2017-12-28 10:33 | Pulmonology Progress Note ---
Assessment/Plan Problems: (1) CHF exacerbation (2) ATN (acute tubular necrosis) (3) COPD (chronic obstructive pulmonary disease) (4) EF 25% (5) Hemiparesis, right (6) Diabetes mellitus Assessment/Plan c/o knee pain feeling better creatinine decreasing cardio note appreciated respiratory treatment check electrolytes symptomatic treatment titrate fio2 to sat of 92% might go to [facility] for Mitral valve clipping Subjective ROS Limited/Unobtainable: No Constitutional: Reports: no symptoms HEENT: Repors: no symptoms Respiratory: Reports: no symptoms Allergies: Coded Allergies: No Known Allergies (Unverified , 12/18/16) Objective Last 24 Hour Vital Signs Date Time Temp Pulse Resp B/P (MAP) Pulse Ox O2 Delivery O2 Flow Rate FiO2 12/28/17 09:00 Nasal Cannula 2.0 12/28/17 08:38 119/63 12/28/17 08:37 75 119/63 12/28/17 08:00 98.3 75 16 119/63 (81) 97 98.3 12/28/17 08:00 75 12/28/17 04:00 74 12/28/17 04:00 98.0 71 16 122/52 (75) 97 98.0 12/28/17 00:00 98.0 78 20 108/63 (78) 97 98.0 12/28/17 00:00 82 12/27/17 22:05 90 128/64 12/27/17 21:00 Nasal Cannula 2.0 12/27/17 20:02 Nasal Cannula 2.0 28 12/27/17 20:02 98 Nasal Cannula 2.0 28 12/27/17 20:02 89 18 Nasal Cannula 2.0 28 12/27/17 20:00 98.2 90 20 128/64 (85) 94 98.2 12/27/17 20:00 90 12/27/17 16:00 99.5 85 20 128/63 (84) 95 99.5 12/27/17 16:00 80 12/27/17 12:00 85 12/27/17 11:34 99.3 95 20 125/58 (80) 97 99.3 Intake and Output 12/27/17 12/28/17 19:00 07:00 Intake Total 840 ml 120 ml Output Total 600 ml 500 ml Balance 240 ml -380 ml Intake Oral 840 ml 120 ml Output Urine Total 600 ml 500 ml # Voids 1 # Bowel Movements 3 1 General Appearance: WD/WN HEENT: normocephalic, atraumatic Respiratory/Chest: chest wall non-tender, lungs clear Breasts: no masses Cardiovascular: normal peripheral pulses Abdomen: normal bowel sounds, soft, non tender Genitourinary: normal external genitalia Skin: no rash 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 Current Medications Medications (Trade) Dose Ordered Sig/[place] Route PRN Reason Start Time Stop Time Status Last Admin Dose Admin Acetaminophen (Tylenol) 650 mg Q4H PRN ORAL Fever 12/24/17 00:00 01/23/18 00:00 12/24/17 04:15 Acetaminophen/ Hydrocodone Bitart ([place] 5/325) 1 tab Q4H PRN ORAL Moderate Pain (Pain Scale 4-6) 12/24/17 09:30 12/31/17 09:29 12/26/17 16:04 Albuterol/ Ipratropium (Albuterol/ Ipratropium) 3 ml EVERY 4 HOURS PRN HHN Shortness of Breath 12/24/17 00:00 12/29/17 00:00 Aspirin (Ecotrin) 81 mg DAILY ORAL 12/24/17 09:00 01/23/18 08:59 12/28/17 08:36 Atorvastatin Calcium (Lipitor) 40 mg BEDTIME ORAL 12/27/17 21:00 01/23/18 20:59 12/27/17 22:04 Carvedilol (Coreg) 6.25 mg EVERY 12 HOURS ORAL 12/27/17 21:00 01/26/18 20:59 12/28/17 08:37 Clopidogrel Bisulfate (Plavix) 75 mg DAILY ORAL 12/24/17 09:00 01/23/18 08:59 12/28/17 08:36 Dextrose (Dextrose 50%) 25 ml STAT PRN IV Hypoglycemia 12/27/17 18:45 01/26/18 18:44 Dextrose (Dextrose 50%) 50 ml STAT PRN IV Hypoglycemia 12/27/17 18:45 01/26/18 18:44 Digoxin (Lanoxin) 0.125 mg DAILY ORAL 12/29/17 09:00 01/28/18 08:59 Escitalopram Oxalate (Lexapro) 10 mg DAILY ORAL 12/27/17 09:00 01/26/18 08:59 12/28/17 08:37 Furosemide (Lasix) 40 mg DAILY ORAL 12/28/17 09:00 01/27/18 08:59 12/28/17 08:37 Gabapentin (Neurontin) 300 mg EVERY 8 HOURS ORAL 12/26/17 22:00 01/23/18 05:59 12/28/17 06:08 Heparin Sodium (Porcine) (Heparin 5000 units/ml) 5,000 units EVERY 12 HOURS SUBQ 12/24/17 09:00 01/23/18 08:59 12/28/17 08:39 Insulin Aspart (NovoLOG) BEFORE MEALS AND HS SUBQ 12/27/17 21:00 01/26/18 20:59 12/28/17 06:11 Lisinopril (Zestril) 5 mg BID ORAL 12/28/17 09:00 01/27/18 08:59 12/28/17 08:38 Lorazepam (Ativan) 2 mg Q6H PRN ORAL For Anxiety 12/26/17 15:30 01/02/18 15:29 Ondansetron HCl (Zofran) 4 mg Q6H PRN IVP Nausea & Vomiting 12/24/17 00:00 01/23/18 00:00 Pantoprazole (Protonix) 40 mg ACBREAKFAST ORAL 12/29/17 06:30 01/23/18 08:59 Polyethylene Glycol (Miralax) 17 gm DAILYPRN PRN ORAL Constipation 12/24/17 00:00 01/23/18 00:00 Pregabalin (Lyrica) 50 mg BID ORAL 12/24/17 09:00 01/23/18 08:59 12/28/17 08:36 Temazepam (Restoril) 15 mg HSPRN PRN ORAL Insomnia 12/24/17 00:00 12/31/17 00:00 12/25/17 00:54 Ida Nolen MD Dec 28, 2017 10:33
[2017-12-28 10:46] LABS: BASOPHILS % (AUTO) 0.9 % (0.0-2.0); EOSINOPHILS % (AUTO) 4.5 % (0.0-3.0); HEMATOCRIT 36.9 % (37.0-47.0); HEMOGLOBIN 11.5 G/DL (12.0-16.0); LYMPHOCYTES % (AUTO) 16.9 % (20.0-45.0); MEAN CORPUSCULAR VOLUME 84 FL (80-99); MONOCYTES % (AUTO) 9.9 % (1.0-10.0); NEUTROPHILS % (AUTO) 67.9 % (45.0-75.0); PLATELET COUNT 170 K/UL (150-450); RED BLOOD COUNT 4.39 M/UL (4.20-5.40); RED CELL DISTRIBUTION WIDTH 14.5 % (11.6-14.8); WHITE BLOOD COUNT 9.5 K/UL (4.8-10.8)
[2017-12-28 10:55] LABS: ANION GAP 5 mmol/L (5-15); BLOOD UREA NITROGEN 34 mg/dL (7-18); CALCIUM 8.7 MG/DL (8.5-10.1); CARBON DIOXIDE 31 MMOL/L (21-32); CHLORIDE 106 MMOL/L (98-107); CREATININE 1.4 MG/DL (0.55-1.30); POTASSIUM 4.1 MMOL/L (3.5-5.1); SODIUM 141 MMOL/L (136-145)
--- NOTE | 2017-12-28 11:55 | General Progress Note ---
Assessment/Plan Assessment/Plan MDD Anxiety d/o lexapro 10mg qam provided ro/st Subjective 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: Reports: anxiety, depressed, emotional problems Allergies: Coded Allergies: No Known Allergies (Unverified , 12/18/16) Subjective the pt is less anxious doing well smiling worried about taking too many meds Objective Last 24 Hour Vital Signs Date Time Temp Pulse Resp B/P (MAP) Pulse Ox O2 Delivery O2 Flow Rate FiO2 12/28/17 09:00 Nasal Cannula 2.0 12/28/17 08:38 119/63 12/28/17 08:37 75 119/63 12/28/17 08:03 72 18 Nasal Cannula 2.0 28 12/28/17 08:03 98 Nasal Cannula 2.0 28 12/28/17 08:03 Nasal Cannula 2.0 28 12/28/17 08:00 98.3 75 16 119/63 (81) 97 98.3 12/28/17 08:00 75 12/28/17 04:00 74 12/28/17 04:00 98.0 71 16 122/52 (75) 97 98.0 12/28/17 00:00 98.0 78 20 108/63 (78) 97 98.0 12/28/17 00:00 82 12/27/17 22:05 90 128/64 12/27/17 21:00 Nasal Cannula 2.0 12/27/17 20:02 Nasal Cannula 2.0 28 12/27/17 20:02 98 Nasal Cannula 2.0 28 12/27/17 20:02 89 18 Nasal Cannula 2.0 28 12/27/17 20:00 98.2 90 20 128/64 (85) 94 98.2 12/27/17 20:00 90 12/27/17 16:00 99.5 85 20 128/63 (84) 95 99.5 12/27/17 16:00 80 12/27/17 12:00 85 Intake and Output 12/27/17 12/28/17 19:00 07:00 Intake Total 840 ml 120 ml Output Total 600 ml 500 ml Balance 240 ml -380 ml Intake Oral 840 ml 120 ml Output Urine Total 600 ml 500 ml # Voids 1 # Bowel Movements 3 1 Laboratory Tests 12/28/17 10:15: White Blood Count 9.5, Red Blood Count 4.39, Hemoglobin 11.5L, Hematocrit 36.9L , Mean Corpuscular Volume 84, Mean Corpuscular Hemoglobin 26.2L, Mean Corpuscular Hemoglobin Concent 31.1L, Red Cell Distribution Width 14.5, Platelet Count 170, Mean Platelet Volume 10.2H, Neutrophils (%) (Auto) 67.9, Lymphocytes (%) (Auto) 16.9L, Monocytes (%) (Auto) 9.9, Eosinophils (%) (Auto) 4.5H, Basophils (%) (Auto) 0.9, Sodium Level 141, Potassium Level 4.1, Chloride Level 106, Carbon Dioxide Level 31, Anion Gap 5, Blood Urea Nitrogen 34H, Creatinine 1.4H, Estimat Glomerular Filtration Rate 37.2, Glucose Level 281H, Calcium Level 8.7 Height (Feet): 5 Height (Inches): 1.00 Weight (Pounds): 176 Neurologic: oriented x 3, responsive Teresa Douglas MD Dec 28, 2017 11:55
[2017-12-28 12:00] VITALS: BP 116/50
--- NOTE | 2017-12-28 15:42 | Internal Med Progress Note ---
Subjective Date of Service: Dec 28, 2017 Physician Name Ash Li Attending Physician Brendan Wright MD Current Medications Medications (Trade) Dose Ordered Sig/[place] Route PRN Reason Start Time Stop Time Status Last Admin Dose Admin Acetaminophen (Tylenol) 650 mg Q4H PRN ORAL Fever 12/24/17 00:00 01/23/18 00:00 12/24/17 04:15 Acetaminophen/ Hydrocodone Bitart ([place] 5/325) 1 tab Q4H PRN ORAL Moderate Pain (Pain Scale 4-6) 12/24/17 09:30 12/31/17 09:29 12/26/17 16:04 Albuterol/ Ipratropium (Albuterol/ Ipratropium) 3 ml EVERY 4 HOURS PRN HHN Shortness of Breath 12/24/17 00:00 12/29/17 00:00 Aspirin (Ecotrin) 81 mg DAILY ORAL 12/24/17 09:00 01/23/18 08:59 12/28/17 08:36 Atorvastatin Calcium (Lipitor) 40 mg BEDTIME ORAL 12/27/17 21:00 01/23/18 20:59 12/27/17 22:04 Carvedilol (Coreg) 6.25 mg EVERY 12 HOURS ORAL 12/27/17 21:00 01/26/18 20:59 12/28/17 08:37 Clopidogrel Bisulfate (Plavix) 75 mg DAILY ORAL 12/24/17 09:00 01/23/18 08:59 12/28/17 08:36 Dextrose (Dextrose 50%) 25 ml STAT PRN IV Hypoglycemia 12/27/17 18:45 01/26/18 18:44 Dextrose (Dextrose 50%) 50 ml STAT PRN IV Hypoglycemia 12/27/17 18:45 01/26/18 18:44 Digoxin (Lanoxin) 0.125 mg DAILY ORAL 12/29/17 09:00 01/28/18 08:59 Escitalopram Oxalate (Lexapro) 10 mg DAILY ORAL 12/27/17 09:00 01/26/18 08:59 12/28/17 08:37 Furosemide (Lasix) 40 mg DAILY ORAL 12/28/17 09:00 01/27/18 08:59 12/28/17 08:37 Gabapentin (Neurontin) 300 mg EVERY 8 HOURS ORAL 12/26/17 22:00 01/23/18 05:59 7/19/18 14:23 Heparin Sodium (Porcine) (Heparin 5000 units/ml) 5,000 units EVERY 12 HOURS SUBQ 12/24/17 09:00 01/23/18 08:59 12/28/17 08:39 Insulin Aspart (NovoLOG) BEFORE MEALS AND HS SUBQ 12/27/17 21:00 01/26/18 20:59 12/28/17 11:49 Lisinopril (Zestril) 5 mg BID ORAL 12/28/17 09:00 01/27/18 08:59 12/28/17 08:38 Lorazepam (Ativan) 2 mg Q6H PRN ORAL For Anxiety 12/26/17 15:30 01/02/18 15:29 Ondansetron HCl (Zofran) 4 mg Q6H PRN IVP Nausea & Vomiting 12/24/17 00:00 01/23/18 00:00 Pantoprazole (Protonix) 40 mg ACBREAKFAST ORAL 12/29/17 06:30 01/23/18 08:59 Polyethylene Glycol (Miralax) 17 gm DAILYPRN PRN ORAL Constipation 12/24/17 00:00 01/23/18 00:00 Pregabalin (Lyrica) 50 mg BID ORAL 12/24/17 09:00 01/23/18 08:59 12/28/17 08:36 Temazepam (Restoril) 15 mg HSPRN PRN ORAL Insomnia 12/24/17 00:00 12/31/17 00:00 12/25/17 00:54 Allergies: Coded Allergies: No Known Allergies (Unverified , 12/18/16) ROS Limited/Unobtainable: No Constitutional: Reports: no symptoms HEENT: Reports: no symptoms Cardiovascular: Reports: no symptoms Respiratory: Reports: shortness of breath Gastrointestinal/Abdominal: Reports: no symptoms Genitourinary: Reports: no symptoms 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: Reports: no symptoms Subjective 72 YO F admitted with dyspnea. Now chuckie heart failure. Cover for Int [facility]-Dr Wright Objective Last Vital Signs Date Time Temp Pulse Resp B/P (MAP) Pulse Ox O2 Delivery O2 Flow Rate FiO2 12/28/17 12:00 60 12/28/17 12:00 98.2 18 116/50 (72) 98 98.2 12/28/17 09:00 Nasal Cannula 2.0 12/28/17 08:03 28 Laboratory Tests Test 12/28/17 10:15 White Blood Count 9.5 K/UL (4.8-10.8) Red Blood Count 4.39 M/UL (4.20-5.40) Hemoglobin 11.5 G/DL (12.0-16.0) L Hematocrit 36.9 % (37.0-47.0) L Mean Corpuscular Volume 84 FL (80-99) Mean Corpuscular Hemoglobin 26.2 PG (27.0-31.0) L Mean Corpuscular Hemoglobin Concent 31.1 G/DL (32.0-36.0) L Red Cell Distribution Width 14.5 % (11.6-14.8) Platelet Count 170 K/UL (150-450) Mean Platelet Volume 10.2 FL (6.5-10.1) H Neutrophils (%) (Auto) 67.9 % (45.0-75.0) Lymphocytes (%) (Auto) 16.9 % (20.0-45.0) L Monocytes (%) (Auto) 9.9 % (1.0-10.0) Eosinophils (%) (Auto) 4.5 % (0.0-3.0) H Basophils (%) (Auto) 0.9 % (0.0-2.0) Sodium Level 141 MMOL/L (136-145) Potassium Level 4.1 MMOL/L (3.5-5.1) Chloride Level 106 MMOL/L (98-107) Carbon Dioxide Level 31 MMOL/L (21-32) Anion Gap 5 mmol/L (5-15) Blood Urea Nitrogen 34 mg/dL (7-18) H Creatinine 1.4 MG/DL (0.55-1.30) H Estimat Glomerular Filtration Rate 37.2 mL/min (>60) Glucose Level 281 MG/DL (74-106) H Calcium Level 8.7 MG/DL (8.5-10.1) Intake and Output 12/27/17 12/28/17 19:00 07:00 Intake Total 840 ml 120 ml Output Total 600 ml 500 ml Balance 240 ml -380 ml Intake Oral 840 ml 120 ml Output Urine Total 600 ml 500 ml # Voids 1 # Bowel Movements 3 1 Objective General Appearance: WD/WN, no apparent distress, alert EENT: PERRL/EOMI, normal ENT inspection, TMs normal Neck: supple, normal inspection Cardiovascular: normal peripheral pulses, normal rate, regular rhythm, no gallop/murmur, no JVD Respiratory/Chest: chest wall non-tender, respiratory distress, decreased breath sounds, accessory muscle use, crackles/rales, expiratory wheezing Abdomen: normal bowel sounds, non tender, soft, no organomegaly, no mass Extremities: normal range of motion, non-tender 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 Continue lasix; hold coreg-see cardiology consult (3) EF 25% (4) Hemiparesis, right (5) COPD (chronic obstructive pulmonary disease) Assessment & Plan: see pulmonary note. (6) Cardiomyopathy (7) HTN (hypertension) Assessment & Plan: continue coreg (8) Cerebral vascular disease Assessment & Plan: continue plavix (9) Iron deficiency anemia (10) LBBB (left bundle branch block) (11) AICD (automatic cardioverter/defibrillator) present Assessment/Plan Discharge planning: D/C in am 12/29/17 with home health Ash Li MD Dec 28, 2017 15:42
[2017-12-28 16:00] VITALS: BP 105/49
--- NOTE | 2017-12-28 19:38 | Cardiology Progress Note ---
Assessment/Plan Assessment/Plan 1. Chronic congestive heart failure with acute component. 2. Cardiomyopathy, ejection fraction 25% 3. Pulmonary hypertension. 4. History of CVA. 5. Peripheral neuropathy. 6. History of cervical cancer. 7. sig MR and TR 8. cardio renal cr imporved she feel better on acei for now low dsoe bb diuretic lasix 40 amd and 20 pm in future would consider entresto but needs to be off acei for 36 hour before starting and will need fu for consideration for [facility] referral [facility] now full will need to try in futuer if readmitted have asked pharmcy to try to get entresto on fromulary maybe can be used if and the next tiem she is admitted Subjective Cardiovascular: Denies: chest pain, lightheadedness, palpitations Respiratory: Denies: shortness of breath Gastrointestinal/Abdominal: Denies: abdominal pain Genitourinary: Denies: burning Objective Last 24 Hour Vital Signs Date Time Temp Pulse Resp B/P (MAP) Pulse Ox O2 Delivery O2 Flow Rate FiO2 12/28/17 19:28 Nasal Cannula 2.0 28 12/28/17 19:28 98 Nasal Cannula 2.0 28 12/28/17 19:27 80 18 Nasal Cannula 2.0 28 12/28/17 17:09 105/49 12/28/17 16:00 73 12/28/17 16:00 97.9 72 18 105/49 (67) 98 97.9 12/28/17 12:00 60 12/28/17 12:00 98.2 67 18 116/50 (72) 98 98.2 12/28/17 09:00 Nasal Cannula 2.0 12/28/17 08:38 119/63 12/28/17 08:37 75 119/63 12/28/17 08:03 72 18 Nasal Cannula 2.0 28 12/28/17 08:03 98 Nasal Cannula 2.0 28 12/28/17 08:03 Nasal Cannula 2.0 28 12/28/17 08:00 98.3 75 16 119/63 (81) 97 98.3 12/28/17 08:00 75 12/28/17 04:00 74 12/28/17 04:00 98.0 71 16 122/52 (75) 97 98.0 12/28/17 00:00 98.0 78 20 108/63 (78) 97 98.0 12/28/17 00:00 82 12/27/17 22:05 90 128/64 12/27/17 21:00 Nasal Cannula 2.0 12/27/17 20:02 Nasal Cannula 2.0 28 12/27/17 20:02 98 Nasal Cannula 2.0 28 12/27/17 20:02 89 18 Nasal Cannula 2.0 28 12/27/17 20:00 98.2 90 20 128/64 (85) 94 98.2 12/27/17 20:00 90 General Appearance: no apparent distress, alert Cardiovascular: irregularly irregular Respiratory/Chest: crackles/rales Abdomen: normal bowel sounds, non tender, soft Extremities: no swelling Intake and Output 12/27/17 12/28/17 19:00 07:00 Intake Total 840 ml 120 ml Output Total 600 ml 500 ml Balance 240 ml -380 ml Intake Oral 840 ml 120 ml Output Urine Total 600 ml 500 ml # Voids 1 # Bowel Movements 3 1 Laboratory Tests Test 12/28/17 10:15 White Blood Count 9.5 K/UL (4.8-10.8) Red Blood Count 4.39 M/UL (4.20-5.40) Hemoglobin 11.5 G/DL (12.0-16.0) L Hematocrit 36.9 % (37.0-47.0) L Mean Corpuscular Volume 84 FL (80-99) Mean Corpuscular Hemoglobin 26.2 PG (27.0-31.0) L Mean Corpuscular Hemoglobin Concent 31.1 G/DL (32.0-36.0) L Red Cell Distribution Width 14.5 % (11.6-14.8) Platelet Count 170 K/UL (150-450) Mean Platelet Volume 10.2 FL (6.5-10.1) H Neutrophils (%) (Auto) 67.9 % (45.0-75.0) Lymphocytes (%) (Auto) 16.9 % (20.0-45.0) L Monocytes (%) (Auto) 9.9 % (1.0-10.0) Eosinophils (%) (Auto) 4.5 % (0.0-3.0) H Basophils (%) (Auto) 0.9 % (0.0-2.0) Sodium Level 141 MMOL/L (136-145) Potassium Level 4.1 MMOL/L (3.5-5.1) Chloride Level 106 MMOL/L (98-107) Carbon Dioxide Level 31 MMOL/L (21-32) Anion Gap 5 mmol/L (5-15) Blood Urea Nitrogen 34 mg/dL (7-18) H Creatinine 1.4 MG/DL (0.55-1.30) H Estimat Glomerular Filtration Rate 37.2 mL/min (>60) Glucose Level 281 MG/DL (74-106) H Calcium Level 8.7 MG/DL (8.5-10.1) Chun Morejon MD Dec 28, 2017 19:38
[2017-12-28 20:00] VITALS: BP 122/49
[2017-12-28] MEDS: Atorvastatin 20mg tab ORAL SCH (21:13)
[2017-12-29] VITALS: BP 96/58
[2017-12-29 04:00] VITALS: BP 111/53
[2017-12-29] MEDS: NovoLOG Insulin Flexpen SUBQ SCH ×2 (06:38→12:16)
[2017-12-29 07:38] LABS: EOSINOPHILS % (AUTO) 3.6 % (0.0-3.0); HEMATOCRIT 36.5 % (37.0-47.0); HEMOGLOBIN 11.7 G/DL (12.0-16.0); LYMPHOCYTES % (AUTO) 22.7 % (20.0-45.0); MEAN CORPUSCULAR VOLUME 84 FL (80-99); MONOCYTES % (AUTO) 8.4 % (1.0-10.0); NEUTROPHILS % (AUTO) 64.3 % (45.0-75.0); PLATELET COUNT 139 K/UL (150-450); RED BLOOD COUNT 4.34 M/UL (4.20-5.40); RED CELL DISTRIBUTION WIDTH 14.3 % (11.6-14.8); WHITE BLOOD COUNT 9.6 K/UL (4.8-10.8)
[2017-12-29 08:00] VITALS: BP 108/56
[2017-12-29 08:01] LABS: ANION GAP 6 mmol/L (5-15); BLOOD UREA NITROGEN 35 mg/dL (7-18); CALCIUM 8.7 MG/DL (8.5-10.1); CARBON DIOXIDE 27 MMOL/L (21-32); CHLORIDE 105 MMOL/L (98-107); CREATININE 1.5 MG/DL (0.55-1.30); POTASSIUM 4.3 MMOL/L (3.5-5.1); SODIUM 138 MMOL/L (136-145)
[2017-12-29] MEDS: Heparin 5000 units/ml inj SUBQ SCH (09:00)
[2017-12-29] MEDS ORDERED: Digoxin 0.125mg tab ORAL SCH (09:00)
[2017-12-29] MEDS: Carvedilol 6.25mg Tab ORAL SCH (09:22)
[2017-12-29] MEDS: Lisinopril 2.5mg tab ORAL SCH (09:23)
[2017-12-29] MEDS: Aspirin EC 81mg tab ORAL SCH (09:23)
[2017-12-29] MEDS: Lyrica 50mg cap ORAL SCH (09:24)
--- NOTE | 2017-12-29 11:32 | Pulmonology Progress Note ---
Assessment/Plan Problems: (1) CHF exacerbation (2) ATN (acute tubular necrosis) (3) COPD (chronic obstructive pulmonary disease) (4) EF 25% (5) Hemiparesis, right (6) Diabetes mellitus Assessment/Plan doing better cxr pending creatinine stable back on lasix cardio note appreciated respiratory treatment check electrolytes symptomatic treatment titrate fio2 to sat of 92% dc planning Subjective ROS Limited/Unobtainable: No Constitutional: Reports: no symptoms HEENT: Repors: no symptoms Respiratory: Reports: no symptoms Cardiovascular: Reports: no symptoms Allergies: Coded Allergies: No Known Allergies (Unverified , 12/18/16) Objective Last 24 Hour Vital Signs Date Time Temp Pulse Resp B/P (MAP) Pulse Ox O2 Delivery O2 Flow Rate FiO2 12/29/17 09:23 108/62 12/29/17 09:23 75 12/29/17 09:22 75 108/62 12/29/17 09:00 Nasal Cannula 2.0 12/29/17 08:00 98.1 75 18 108/56 (73) 97 98.1 12/29/17 07:55 97 Nasal Cannula 2.0 28 12/29/17 07:55 Nasal Cannula 2.0 28 12/29/17 07:55 87 20 Nasal Cannula 2.0 28 12/29/17 04:00 74 12/29/17 04:00 97.3 75 22 111/53 (72) 97 97.3 12/29/17 00:00 98.7 76 20 96/58 (71) 97 98.7 12/29/17 00:00 77 12/28/17 21:13 74 122/49 12/28/17 21:00 Nasal Cannula 2.0 12/28/17 20:00 80 12/28/17 20:00 99.3 74 20 122/49 (73) 97 99.3 12/28/17 19:28 Nasal Cannula 2.0 28 12/28/17 19:28 98 Nasal Cannula 2.0 28 12/28/17 19:27 80 18 Nasal Cannula 2.0 28 12/28/17 17:09 105/49 12/28/17 16:00 73 12/28/17 16:00 97.9 72 18 105/49 (67) 98 97.9 12/28/17 12:00 60 7/19/18 12:00 98.2 67 18 116/50 (72) 98 98.2 Intake and Output 12/28/17 12/29/17 19:00 07:00 Intake Total 520 ml Output Total 500 ml Balance 20 ml Intake Oral 520 ml Output Urine Total 500 ml # Voids 4 # Bowel Movements 4 General Appearance: WD/WN HEENT: normocephalic, atraumatic Respiratory/Chest: chest wall non-tender, lungs clear Breasts: no masses Cardiovascular: normal peripheral pulses Abdomen: normal bowel sounds, soft, non tender Genitourinary: normal external genitalia Extremities: no cyanosis Laboratory Tests 12/29/17 07:10: White Blood Count 9.6, Red Blood Count 4.34, Hemoglobin 11.7L, Hematocrit 36.5L , Mean Corpuscular Volume 84, Mean Corpuscular Hemoglobin 27.0, Mean Corpuscular Hemoglobin Concent 32.1, Red Cell Distribution Width 14.3, Platelet Count 139L, Mean Platelet Volume 9.7, Neutrophils (%) (Auto) 64.3, Lymphocytes ( %) (Auto) 22.7, Monocytes (%) (Auto) 8.4, Eosinophils (%) (Auto) 3.6H, Basophils (%) (Auto) 1.0, Sodium Level 138, Potassium Level 4.3, Chloride Level 105, Carbon Dioxide Level 27, Anion Gap 6, Blood Urea Nitrogen 35H, Creatinine 1.5H, Estimat Glomerular Filtration Rate 34.4, Glucose Level 253H, Calcium Level 8.7 Current Medications Medications (Trade) Dose Ordered Sig/[place] Route PRN Reason Start Time Stop Time Status Last Admin Dose Admin Acetaminophen (Tylenol) 650 mg Q4H PRN ORAL Fever 12/24/17 00:00 01/23/18 00:00 12/24/17 04:15 Acetaminophen/ Hydrocodone Bitart ([place] 5/325) 1 tab Q4H PRN ORAL Moderate Pain (Pain Scale 4-6) 12/24/17 09:30 12/31/17 09:29 12/26/17 16:04 Aspirin (Ecotrin) 81 mg DAILY ORAL 12/24/17 09:00 01/23/18 08:59 12/29/17 09:23 Atorvastatin Calcium (Lipitor) 40 mg BEDTIME ORAL 12/27/17 21:00 01/23/18 20:59 12/28/17 21:13 Carvedilol (Coreg) 6.25 mg EVERY 12 HOURS ORAL 12/27/17 21:00 01/26/18 20:59 12/29/17 09:22 Clopidogrel Bisulfate (Plavix) 75 mg DAILY ORAL 12/24/17 09:00 01/23/18 08:59 12/29/17 09:23 Dextrose (Dextrose 50%) 25 ml STAT PRN IV Hypoglycemia 12/27/17 18:45 01/26/18 18:44 Dextrose (Dextrose 50%) 50 ml STAT PRN IV Hypoglycemia 12/27/17 18:45 01/26/18 18:44 Digoxin (Lanoxin) 0.125 mg DAILY ORAL 12/29/17 09:00 01/28/18 08:59 12/29/17 09:23 Escitalopram Oxalate (Lexapro) 10 mg DAILY ORAL 12/27/17 09:00 01/26/18 08:59 12/29/17 09:23 Furosemide (Lasix) 20 mg DAILY ORAL 12/29/17 16:00 01/28/18 15:59 Gabapentin (Neurontin) 300 mg EVERY 8 HOURS ORAL 12/26/17 22:00 01/23/18 05:59 12/29/17 06:22 Heparin Sodium (Porcine) (Heparin 5000 units/ml) 5,000 units EVERY 12 HOURS SUBQ 12/24/17 09:00 01/23/18 08:59 12/28/17 21:15 Insulin Aspart (NovoLOG) BEFORE MEALS AND HS SUBQ 12/27/17 21:00 01/26/18 20:59 12/29/17 06:38 Lisinopril (Zestril) 5 mg BID ORAL 12/28/17 09:00 01/27/18 08:59 12/29/17 09:23 Lorazepam (Ativan) 2 mg Q6H PRN ORAL For Anxiety 12/26/17 15:30 01/02/18 15:29 Ondansetron HCl (Zofran) 4 mg Q6H PRN IVP Nausea & Vomiting 12/24/17 00:00 01/23/18 00:00 Pantoprazole (Protonix) 40 mg ACBREAKFAST ORAL 12/29/17 06:30 01/23/18 08:59 12/29/17 06:22 Polyethylene Glycol (Miralax) 17 gm DAILYPRN PRN ORAL Constipation 12/24/17 00:00 01/23/18 00:00 Pregabalin (Lyrica) 50 mg BID ORAL 12/24/17 09:00 01/23/18 08:59 12/29/17 09:24 Temazepam (Restoril) 15 mg HSPRN PRN ORAL Insomnia 12/24/17 00:00 12/31/17 00:00 12/25/17 00:54 Ida Nolen MD Dec 29, 2017 11:32
[2017-12-29 12:00] VITALS: BP 124/57
--- NOTE | 2017-12-29 13:26 | General Progress Note ---
Assessment/Plan Assessment/Plan MDD Anxiety d/o lexapro 10mg qam provided ro/st Subjective Date patient seen: Dec 29, 2017 Allergies: Coded Allergies: No Known Allergies (Unverified , 12/18/16) Subjective the pt is less anxious doing well smiling worried about taking too many meds Objective Last 24 Hour Vital Signs Date Time Temp Pulse Resp B/P (MAP) Pulse Ox O2 Delivery O2 Flow Rate FiO2 12/29/17 12:00 77 12/29/17 12:00 97.8 70 18 124/57 (79) 95 97.8 12/29/17 09:23 108/62 12/29/17 09:23 75 12/29/17 09:22 75 108/62 12/29/17 09:00 Nasal Cannula 2.0 12/29/17 08:00 98.1 75 18 108/56 (73) 97 98.1 12/29/17 08:00 64 12/29/17 07:55 97 Nasal Cannula 2.0 28 12/29/17 07:55 Nasal Cannula 2.0 28 12/29/17 07:55 87 20 Nasal Cannula 2.0 28 12/29/17 04:00 74 12/29/17 04:00 97.3 75 22 111/53 (72) 97 97.3 12/29/17 00:00 98.7 76 20 96/58 (71) 97 98.7 12/29/17 00:00 77 12/28/17 21:13 74 122/49 12/28/17 21:00 Nasal Cannula 2.0 12/28/17 20:00 80 12/28/17 20:00 99.3 74 20 122/49 (73) 97 99.3 12/28/17 19:28 Nasal Cannula 2.0 28 12/28/17 19:28 98 Nasal Cannula 2.0 28 12/28/17 19:27 80 18 Nasal Cannula 2.0 28 12/28/17 17:09 105/49 12/28/17 16:00 73 12/28/17 16:00 97.9 72 18 105/49 (67) 98 97.9 Intake and Output 12/28/17 12/29/17 19:00 07:00 Intake Total 520 ml Output Total 500 ml Balance 20 ml Intake Oral 520 ml Output Urine Total 500 ml # Voids 4 # Bowel Movements 4 Laboratory Tests 12/29/17 07:10: White Blood Count 9.6, Red Blood Count 4.34, Hemoglobin 11.7L, Hematocrit 36.5L , Mean Corpuscular Volume 84, Mean Corpuscular Hemoglobin 27.0, Mean Corpuscular Hemoglobin Concent 32.1, Red Cell Distribution Width 14.3, Platelet Count 139L, Mean Platelet Volume 9.7, Neutrophils (%) (Auto) 64.3, Lymphocytes ( %) (Auto) 22.7, Monocytes (%) (Auto) 8.4, Eosinophils (%) (Auto) 3.6H, Basophils (%) (Auto) 1.0, Sodium Level 138, Potassium Level 4.3, Chloride Level 105, Carbon Dioxide Level 27, Anion Gap 6, Blood Urea Nitrogen 35H, Creatinine 1.5H, Estimat Glomerular Filtration Rate 34.4, Glucose Level 253H, Calcium Level 8.7 Height (Feet): 5 Height (Inches): 1.00 Weight (Pounds): 176 Teresa Douglas MD Dec 29, 2017 13:26
--- NOTE | 2017-12-29 14:47 | Diagnostic Imaging Report ---
Indication: Cough Technique: One view of the chest Comparison: 12/26/2017 Findings: Better inspiration currently. Left chest biventricular AICD is again demonstrated. The heart is enlarged. Borderline interstitial congestive changes appear slightly improved, although this could in part be an artifact of the improved inspiration. No focal airspace consolidation. No effusions Impression: Suspect slight improvement of interstitial congestion, over 3 days, with some residual Persistent cardiomegaly Other stable findings as described
[2017-12-29] MEDS ORDERED: Loperamide 2mg cap ORAL PRN (15:00)
--- NOTE | 2017-12-29 15:01 | Internal Med Progress Note ---
Subjective Date of Service: Dec 29, 2017 Physician Name Ash Li Attending Physician Brendan Wright MD Current Medications Medications (Trade) Dose Ordered Sig/[place] Route PRN Reason Start Time Stop Time Status Last Admin Dose Admin Acetaminophen (Tylenol) 650 mg Q4H PRN ORAL Fever 12/24/17 00:00 01/23/18 00:00 12/24/17 04:15 Acetaminophen/ Hydrocodone Bitart ([place] 5/325) 1 tab Q4H PRN ORAL Moderate Pain (Pain Scale 4-6) 12/24/17 09:30 12/31/17 09:29 12/26/17 16:04 Aspirin (Ecotrin) 81 mg DAILY ORAL 12/24/17 09:00 01/23/18 08:59 12/29/17 09:23 Atorvastatin Calcium (Lipitor) 40 mg BEDTIME ORAL 12/27/17 21:00 01/23/18 20:59 12/28/17 21:13 Carvedilol (Coreg) 6.25 mg EVERY 12 HOURS ORAL 12/27/17 21:00 01/26/18 20:59 12/29/17 09:22 Clopidogrel Bisulfate (Plavix) 75 mg DAILY ORAL 12/24/17 09:00 01/23/18 08:59 12/29/17 09:23 Dextrose (Dextrose 50%) 25 ml STAT PRN IV Hypoglycemia 12/27/17 18:45 01/26/18 18:44 Dextrose (Dextrose 50%) 50 ml STAT PRN IV Hypoglycemia 12/27/17 18:45 01/26/18 18:44 Digoxin (Lanoxin) 0.125 mg DAILY ORAL 12/29/17 09:00 01/28/18 08:59 12/29/17 09:23 Escitalopram Oxalate (Lexapro) 10 mg DAILY ORAL 12/27/17 09:00 01/26/18 08:59 12/29/17 09:23 Furosemide (Lasix) 20 mg DAILY ORAL 12/29/17 16:00 01/28/18 15:59 Gabapentin (Neurontin) 300 mg EVERY 8 HOURS ORAL 12/26/17 22:00 01/23/18 05:59 12/29/17 06:22 Heparin Sodium (Porcine) (Heparin 5000 units/ml) 5,000 units EVERY 12 HOURS SUBQ 12/24/17 09:00 01/23/18 08:59 12/28/17 21:15 Insulin Aspart (NovoLOG) BEFORE MEALS AND HS SUBQ 12/27/17 21:00 01/26/18 20:59 12/29/17 12:16 Lisinopril (Zestril) 5 mg BID ORAL 12/28/17 09:00 01/27/18 08:59 12/29/17 09:23 Lorazepam (Ativan) 2 mg Q6H PRN ORAL For Anxiety 12/26/17 15:30 01/02/18 15:29 Ondansetron HCl (Zofran) 4 mg Q6H PRN IVP Nausea & Vomiting 12/24/17 00:00 01/23/18 00:00 Pantoprazole (Protonix) 40 mg ACBREAKFAST ORAL 12/29/17 06:30 01/23/18 08:59 12/29/17 06:22 Polyethylene Glycol (Miralax) 17 gm DAILYPRN PRN ORAL Constipation 12/24/17 00:00 01/23/18 00:00 Pregabalin (Lyrica) 50 mg BID ORAL 12/24/17 09:00 01/23/18 08:59 12/29/17 09:24 Temazepam (Restoril) 15 mg HSPRN PRN ORAL Insomnia 12/24/17 00:00 12/31/17 00:00 12/25/17 00:54 Allergies: Coded Allergies: No Known Allergies (Unverified , 12/18/16) ROS Limited/Unobtainable: No Constitutional: Reports: no symptoms HEENT: Reports: no symptoms Cardiovascular: Reports: no symptoms Respiratory: Reports: no symptoms Gastrointestinal/Abdominal: Reports: no symptoms Genitourinary: Reports: no symptoms 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: Reports: no symptoms Subjective 72 YO F admitted with dyspnea. Now chuckie heart failure. Cover for Int [facility]-Dr Wright Objective Last Vital Signs Date Time Temp Pulse Resp B/P (MAP) Pulse Ox O2 Delivery O2 Flow Rate FiO2 12/29/17 12:00 77 12/29/17 12:00 97.8 18 124/57 (79) 95 97.8 12/29/17 09:00 Nasal Cannula 2.0 12/29/17 07:55 28 Laboratory Tests Test 12/29/17 07:10 White Blood Count 9.6 K/UL (4.8-10.8) Red Blood Count 4.34 M/UL (4.20-5.40) Hemoglobin 11.7 G/DL (12.0-16.0) L Hematocrit 36.5 % (37.0-47.0) L Mean Corpuscular Volume 84 FL (80-99) Mean Corpuscular Hemoglobin 27.0 PG (27.0-31.0) Mean Corpuscular Hemoglobin Concent 32.1 G/DL (32.0-36.0) Red Cell Distribution Width 14.3 % (11.6-14.8) Platelet Count 139 K/UL (150-450) L Mean Platelet Volume 9.7 FL (6.5-10.1) Neutrophils (%) (Auto) 64.3 % (45.0-75.0) Lymphocytes (%) (Auto) 22.7 % (20.0-45.0) Monocytes (%) (Auto) 8.4 % (1.0-10.0) Eosinophils (%) (Auto) 3.6 % (0.0-3.0) H Basophils (%) (Auto) 1.0 % (0.0-2.0) Sodium Level 138 MMOL/L (136-145) Potassium Level 4.3 MMOL/L (3.5-5.1) Chloride Level 105 MMOL/L (98-107) Carbon Dioxide Level 27 MMOL/L (21-32) Anion Gap 6 mmol/L (5-15) Blood Urea Nitrogen 35 mg/dL (7-18) H Creatinine 1.5 MG/DL (0.55-1.30) H Estimat Glomerular Filtration Rate 34.4 mL/min (>60) Glucose Level 253 MG/DL (74-106) H Calcium Level 8.7 MG/DL (8.5-10.1) Intake and Output 12/28/17 12/29/17 19:00 07:00 Intake Total 520 ml Output Total 500 ml Balance 20 ml Intake Oral 520 ml Output Urine Total 500 ml # Voids 4 # Bowel Movements 4 Objective General Appearance: WD/WN, no apparent distress, alert EENT: PERRL/EOMI, normal ENT inspection, TMs normal Neck: supple, normal inspection Cardiovascular: normal peripheral pulses, normal rate, regular rhythm, no gallop/murmur, no JVD Respiratory/Chest: chest wall non-tender, respiratory distress, decreased breath sounds, accessory muscle use, crackles/rales, expiratory wheezing Abdomen: normal bowel sounds, non tender, soft, no organomegaly, no mass Extremities: normal range of motion, non-tender 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 Continue lasix; hold coreg-see cardiology consult (3) EF 25% (4) Hemiparesis, right (5) COPD (chronic obstructive pulmonary disease) Assessment & Plan: see pulmonary note. (6) Cardiomyopathy (7) HTN (hypertension) Assessment & Plan: continue coreg (8) Cerebral vascular disease Assessment & Plan: continue plavix (9) Iron deficiency anemia (10) LBBB (left bundle branch block) (11) AICD (automatic cardioverter/defibrillator) present Status: stable Assessment/Plan Discharge planning: D/C today 12/29/17 with home health Ash Li MD Dec 29, 2017 15:01
--- NOTE | 2017-12-29 16:35 | Cardiology Report ---
APPROVED REPORT EKG Measurement Heart [id number] Sinus rhythm with ventricular paced rhythm Electronic pacemaker
--- NOTE | 2018-01-01 09:27 | Discharge Summary ---
Discharge Summary Discharge Summary _ DATE OF ADMISSION: 12/23/2017 DATE OF DISCHARGE: 12/29/2017 REASON FOR ADMISSION: 72 years old female with past medical history significant for congestive heart failure with cardiomyopathy, AICD, history of GA 2016, CVA with right hemiparesis, history of cervical cancer in 2016, COPD, diabetes mellitus, presented to emergency room with shortness of breath and bilateral lower extremity swelling for the last few days. No chest pain, no fever, no chills. Upon evaluation vital signs were stable. BUN 37 creatinine 1.5. Troponin negative. Pro BNP 1685. Chest x-ray was consistent with CHF. Patient was admitted with diagnosis off CHF exacerbation, cardiomyopathy, history of CVA, history of cervical cancer, diabetes mellitus. CONSULTANTS: side door worker Dr. Morejon pulmonary Dr. Nolen psychiatrist [facility]SE: Patient admitted to telemetry floor. Serial troponin were negative. Venous duplex bilateral lower extremity revealed no evidence of acute DVT. Echocardiogram revealed ejection fraction 25-30%, global left ventricular hypokinesis, akinetic apical septal and mid septal wall, severe mitral regurgitation, moderate mitral regurgitation and evidence of pulmonary hypertension with right ventricular systolic pressure of 53. Patient started on intravenous diuresis. Volumes and cardiorenal parameters were closely monitored. Cloth Wire Weaver closely followed. Anti-failure regimen with beta dayna,digoxin and Lasix was continued. Digoxin level was therapeutic. JAROCHO inhibitor added later per side door worker. Dual antiplatelet therapy was resumed. Blood pressure was managed with current regimen and remained stable. Blood sugar was managed with sliding scale of insulin. DVT and GI prophylaxis provided. Supplemental oxygen provided as needed to keep pulse oximetry above 92%. Pulmonary toilet provided as needed. Follow-up chest x-ray showed slight improvement in congestive heart failure. ProBNP trending down from 1685 to 1255. Cloth Wire Weaver closely followed. IV diuretic was changed to oral prior to discharge. Cloth Wire Weaver recommended microclip referral and consider Entresto. Patient needs to be off JAROCHO inhibitor for 36 year hours prior to starting Entresto. [facility] had no available beds at this time. Per side door worker, referral for Mitroclip as outpatient. Follow-up with side door worker as outpatient for Mitroclip referral and trial of Entresto. Renal parameters and electrolytes were closely monitored. Electrolytes were corrected as needed. Nephrotoxics were avoided. Creatinine remained in the same range, likely chronic renal insufficiency. Psychiatrist seen and evaluated patient, and diagnosed patient with major depressive disorder and anxiety disorder. Patient provided with reality orientation and supportive therapy. Patient started on low-dose Lexapro. Lower extremity pain was likely was likely due to diabetic neuropathy. Lyrica was continued, and [place] was added on as needed basis. Pain management was addressed, and pain was controlled. Bowel regimen instituted. Supportive care provided. Patient clinically improved. Pulse oximetry stable on room air. Patient was stable for discharge to long-term facility for continuation of care FINAL DIAGNOSES: Acute on chronic systolic congestive heart failure Dilated cardiomyopathy with severe systolic dysfunction Severe mitral regurgitation and moderate tricuspid regurgitation Cerebrovascular disease with a history of CVA and right hemiparesis Pulmonary hypertension AICD Diabetic nephropathy Diabetic neuropathy Diabetes mellitus type 2 Chronic renal insufficiency COPD Hypertension Morbid obesity History of cervical cancer Major depressive disorder Anxiety disorder DISCHARGE MEDICATIONS: See Medication Reconciliation list. DISCHARGE INSTRUCTIONS: The patient was discharged to long-term facility. Follow up with medical doctor at the facility. Follow-up with side door worker as outpatient. I have been assigned to dictate discharge summary for this account. I was not involved in the patient's management. Sari Carmona NP Jan 01, 2018 09:27
== END 2017-12-29 15:55 | disposition home health service (06) | DRG 291 ==
LOC: EDBD 20:51 → EMR 21:05 → 2E 22:08 → EDBEDREQ 22:14 → OBSVTOIN 23:44
DX: I13.0 Hypertensive heart and chronic kidney disease with heart failure and stage 1 through stage 4 chronic kidney disease, or unspecified chronic kidney disease (principal); N17.0 Acute kidney failure with tubular necrosis; I50.23 Acute on chronic systolic (congestive) heart failure; I69.351 Hemiplegia and hemiparesis following cerebral infarction affecting right dominant side; E11.22 Type 2 diabetes mellitus with diabetic chronic kidney disease; N18.9 Chronic kidney disease, unspecified; J44.9 Chronic obstructive pulmonary disease, unspecified; D50.9 Iron deficiency anemia, unspecified; Z90.710 Acquired absence of both cervix and uterus; Z95.810 Presence of automatic (implantable) cardiac defibrillator; Z79.02 Long term (current) use of antithrombotics/antiplatelets; Z79.4 Long term (current) use of insulin; I42.0 Dilated cardiomyopathy; I44.7 Left bundle-branch block, unspecified; E11.40 Type 2 diabetes mellitus with diabetic neuropathy, unspecified; E66.01 Morbid (severe) obesity due to excess calories; Z85.41 Personal history of malignant neoplasm of cervix uteri; I25.2 Old myocardial infarction; I36.1 Nonrheumatic tricuspid (valve) insufficiency; I27.20 Pulmonary hypertension, unspecified
CPT/HCPCS: 36415; 71045; 80048; 80053; 80162; 82550; 82553; 82962; 83880; 84484; 85025; 87040; 87081; 93005; 93306; 93970; 94664; 94760; 99285; J1815

== ENCOUNTER 2018-02-22 11:22 | Outpatient (CLI) | payer MEDICARE, OTHER ==
[~2018-02-22 11:22] MED LIST changes: +DIGOXIN125 MCG ORAL; +GABAPENTIN300 MG ORAL; +GLUCOTROL XL10 MG ORAL; +LORATADINE10 M2 PO; +METFORMIN HCL1000 M1 ORAL; +OMEPRAZOLE40 M1 ORAL
[2018-02-22 11:59] LABS: BASOPHILS % (AUTO) 0.8 % (0.0-2.0); EOSINOPHILS % (AUTO) 1.9 % (0.0-3.0); HEMATOCRIT 41.6 % (37.0-47.0); HEMOGLOBIN 13.3 G/DL (12.0-16.0); LYMPHOCYTES % (AUTO) 16.2 % (20.0-45.0); MEAN CORPUSCULAR VOLUME 84 FL (80-99); MONOCYTES % (AUTO) 8.7 % (1.0-10.0); NEUTROPHILS % (AUTO) 72.5 % (45.0-75.0); PLATELET COUNT 258 K/UL (150-450); RED BLOOD COUNT 4.94 M/UL (4.20-5.40); RED CELL DISTRIBUTION WIDTH 14.2 % (11.6-14.8); WHITE BLOOD COUNT 13.3 K/UL (4.8-10.8)
[2018-02-22 12:01] LABS: APPEARANCE,URINE CLEAR; BILIRUBIN, URINE NEGATIVE (NEGATIVE); COLOR,URINE PALE YELLOW; GLUCOSE, URINE (UA) 4+ (NEGATIVE); KETONES,URINE NEGATIVE (NEGATIVE); LEUKOCYTE ESTERASE ,URINE 3+ (NEGATIVE); NITRITE,URINE NEGATIVE (NEGATIVE); PH,URINE 6 (4.5-8.0); PROTEIN,URINE 3+ (NEGATIVE); UROBILINOGEN,URINE NORMAL MG/DL (0.0-1.0)
[2018-02-22 12:23] LABS: ANION GAP 9 mmol/L (5-15); BLOOD UREA NITROGEN 22 mg/dL (7-18); CALCIUM 9.6 MG/DL (8.5-10.1); CARBON DIOXIDE 28 MMOL/L (21-32); CHLORIDE 101 MMOL/L (98-107); CHOLESTEROL 155 MG/DL (< 200); CREATININE 1.3 MG/DL (0.55-1.30); HDL CHOLESTEROL 36 MG/DL (40-60); PHOSPHORUS 2.2 MG/DL (2.5-4.9); POTASSIUM 3.8 MMOL/L (3.5-5.1); SODIUM 138 MMOL/L (136-145); TRIGLYCERIDES 395 MG/DL (30-150)
--- NOTE | 2018-02-22 15:20 | Diagnostic Imaging Report ---
Indication: Pain Technique: Grayscale and duplex images of the kidneys, retroperitoneum, and bladder were obtained. Comparison: Findings: Right kidney measures 10.4 cm in length. Left kidney measures 10.7 cm in length. Both kidneys demonstrate equivocally slightly increased echogenicity, slight thinning of the cortices. No hydronephrosis. There are bilateral renal cysts. 7 mm echogenic focus is seen in the left renal sinus. 5 mm echogenic focus is seen in the right renal sinus. Normal inferior vena cava. Bladder is normal. Incidental note is made of increased hepatic echogenicity Impression: Equivocally slightly increased renal echogenicity with slight cortical thinning, could indicate medical renal disease Negative for hydronephrosis Possible bilateral nonobstructive intrarenal calculi Bilateral renal cysts incidentally noted Incidental finding of increased hepatic echogenicity, consistent with hepatocellular disease, most likely fatty change.
== END 2018-02-22 13:22 | disposition home or self-care (01) ==
LOC: RAD 11:22
DX: N18.9 Chronic kidney disease, unspecified (principal); E11.9 Type 2 diabetes mellitus without complications; N28.1 Cyst of kidney, acquired
CPT/HCPCS: 36415; 76770; 80048; 80061; 81003; 83036; 83970; 84100; 85025; 87086; 87181

== ENCOUNTER 2018-03-12 12:47 | Inpatient (IN) | payer MEDICARE, OTHER ==
[~2018-03-12] VITALS: Ht 154.9 cm; Wt 73.5 kg
--- NOTE | 2018-03-12 13:53 | Emergency Room Report ---
History of Present Illness General Chief Complaint: Edema Source: Patient Present Illness HPI Patient is a 73-year-old female who presented after increased lower extremity discomfort and swelling. Patient gradual onset of symptoms since yesterday. Patient was having additional shortness of breath. Patient prior history of arthritis. She denies any prior history of renal disease. She was noted to have increased difficulty breathing as well as difficulty lying flat.She presented increased bilateral lower extremity pain. Allergies: Coded Allergies: No Known Allergies (Unverified , 12/18/16) Patient History Past Medical History: see triage record Last Menstrual Period: na Reviewed Nursing Documentation: PMH: Agreed; PSxH: Agreed Nursing Documentation-PMH Past Medical History: No History, Except For Hx Cardiac Problems: Yes - CHF Hx Hypertension: Yes Hx Pacemaker: Yes Hx Asthma: No Hx COPD: Yes Hx Diabetes: Yes Hx Cancer: Yes - Uterine Tumor Hx Gastrointestinal Problems: Yes Hx Dialysis: No - CKD Hx Neurological Problems: Yes Hx Cerebrovascular Accident: Yes Hx Transient Ischemic Attacks: No Hx Dementia: No Hx Alzheimer's Disease: No Hx Parkinson's Disease: No Hx Meningitis: No Hx Encephalitis: No Hx Seizures: No Hx Epilepsy: No Hx Multiple Sclerosis: No Hx Cerebral Palsy: No Hx Amyotrophic Lat Sclerosis: No Hx Guillian-Rentz Syndrome: No Hx Paralysis: Yes - rt sided minor paralysis d/t CVA Hx Peripheral Neuropathy: No Hx Spinal Cord Injury: No Hx Head Trauma: No Hx Traumatic Brain Injury: No Hx Memory Loss: No Hx Concentration Difficulty: No Hx Speech Problem: No Hx Tremors: No Hx Vertigo: No Hx Dizziness: Yes Hx Syncope: No Hx Headaches: No Hx Aphasia: No Hx Dysphasia: No Hx Numbness: No Hx Weakness: No Hx Fatigue: No Hx Neurologic Surgery: No Hx Brain Shunt: No Review of Systems All Other Systems: negative except mentioned in HPI Physical Exam Vital Signs Date Time Temp Pulse Resp B/P (MAP) Pulse Ox O2 Delivery O2 Flow Rate FiO2 03/12/18 13:28 98.3 91 20 143/74 91 Room Air 98.2 General Appearance: non-toxic, obese, Chronically Ill Respiratory: decreased breath sounds Cardiovascular #1: regular rate, rhythm, edema Gastrointestinal: non tender, other - pelvic mass, lower abdomen Musculoskeletal: normal inspection, back normal, decreased range of motion Neurologic: normal inspection, alert, oriented x3, responsive Psychiatric: normal inspection Skin: normal color, no rash Medical Decision Making Diagnostic Impression: Primary Impression: CHF exacerbation ER Course Patient presented for short of breath. Differential included but was not limited to anemia, pneumonia, pneumothorax, myocardial infarction, pericardial effusion, congestive heart failure, acidosis. Because of complexity of patient' s case laboratory testing and imaging studies were ordered.EKG interpreted by me showed ventricular paced rhythm 87 heart rate with a left bundle-branch block morphology. The patient was noted to be somewhat short of breath. The patient was started on IV Lasix. The patient noted to have some diuresis. After IV Lasix.Dr. Brendan Wright was contacted for inpatient management due to primary care physician. Labs Test 03/12/18 14:10 03/12/18 15:40 White Blood Count 12.5 K/UL (4.8-10.8) Red Blood Count 4.50 M/UL (4.20-5.40) Hemoglobin 12.3 G/DL (12.0-16.0) Hematocrit 38.0 % (37.0-47.0) Mean Corpuscular Volume 84 FL (80-99) Mean Corpuscular Hemoglobin 27.3 PG (27.0-31.0) Mean Corpuscular Hemoglobin Concent 32.4 G/DL (32.0-36.0) Red Cell Distribution Width 14.0 % (11.6-14.8) Platelet Count 224 K/UL (150-450) Mean Platelet Volume 10.0 FL (6.5-10.1) Neutrophils (%) (Auto) 73.5 % (45.0-75.0) Lymphocytes (%) (Auto) 14.4 % (20.0-45.0) Monocytes (%) (Auto) 8.8 % (1.0-10.0) Eosinophils (%) (Auto) 2.4 % (0.0-3.0) Basophils (%) (Auto) 0.8 % (0.0-2.0) Sodium Level 138 MMOL/L (136-145) Potassium Level 4.3 MMOL/L (3.5-5.1) Chloride Level 104 MMOL/L (98-107) Carbon Dioxide Level 26 MMOL/L (21-32) Anion Gap 8 mmol/L (5-15) Blood Urea Nitrogen 18 mg/dL (7-18) Creatinine 1.3 MG/DL (0.55-1.30) Estimat Glomerular Filtration Rate mL/min (>60) Glucose Level 320 MG/DL (74-106) Calcium Level 8.9 MG/DL (8.5-10.1) Total Bilirubin 0.3 MG/DL (0.2-1.0) Aspartate Amino Transf (AST/SGOT) 28 U/L (15-37) Alanine Aminotransferase (ALT/SGPT) 20 U/L (12-78) Alkaline Phosphatase 114 U/L (46-116) Troponin I 0.071 ng/mL (0.000-0.056) Pro-B-Type Natriuretic Peptide 1677 pg/mL (0-125) Total Protein 7.5 G/DL (6.4-8.2) Albumin 2.9 G/DL (3.4-5.0) Globulin 4.6 g/dL Albumin/Globulin Ratio 0.6 (1.0-2.7) Lipase 156 U/L (73-393) Thyroid Stimulating Hormone (TSH) 1.228 uiU/mL (0.358-3.740) EKG Diagnostic Results Rate: other - paced rhythm ST Segments: other - paced, left bundle branch block Last Vital Signs Date Time Temp Pulse Resp B/P (MAP) Pulse Ox O2 Delivery O2 Flow Rate FiO2 03/12/18 13:28 98.3 91 20 143/74 91 Room Air 98.2 Status: unchanged Disposition: ADMITTED INPATIENT Condition: Serious Harsha Conteh MD Mar 12, 2018 13:53
[2018-03-12 14:44] LABS: BASOPHILS % (AUTO) 0.8 % (0.0-2.0); EOSINOPHILS % (AUTO) 2.4 % (0.0-3.0); HEMOGLOBIN 12.3 G/DL (12.0-16.0); LYMPHOCYTES % (AUTO) 14.4 % (20.0-45.0); MEAN CORPUSCULAR VOLUME 84 FL (80-99); MONOCYTES % (AUTO) 8.8 % (1.0-10.0); NEUTROPHILS % (AUTO) 73.5 % (45.0-75.0); PLATELET COUNT 224 K/UL (150-450); WHITE BLOOD COUNT 12.5 K/UL (4.8-10.8)
[2018-03-12 15:04] LABS: ANION GAP 8 mmol/L (5-15); BLOOD UREA NITROGEN 18 mg/dL (7-18); CALCIUM 8.9 MG/DL (8.5-10.1); CARBON DIOXIDE 26 MMOL/L (21-32); CHLORIDE 104 MMOL/L (98-107); CREATININE 1.3 MG/DL (0.55-1.30); POTASSIUM 4.3 MMOL/L (3.5-5.1); SODIUM 138 MMOL/L (136-145)
[2018-03-12 15:16] LABS: ALANINE AMINOTRANSFERASE 20 U/L (12-78); ALBUMIN 2.9 G/DL (3.4-5.0); ALBUMIN/GLOBULIN RATIO 0.6 (1.0-2.7); ALKALINE PHOSPHATASE 114 U/L (46-116); ASPARTATE AMINO TRANSFERASE 28 U/L (15-37); BILIRUBIN,TOTAL 0.3 MG/DL (0.2-1.0)
[2018-03-12] MEDS ORDERED: Miralax 17gm pkt ORAL PRN (15:45)
[2018-03-12] MEDS ORDERED: Albuterol/Ipratropium 3ml neb HHN PRN (15:45)
--- NOTE | 2018-03-12 17:28 | Diagnostic Imaging Report ---
Indication: Shortness of breath Technique: One view of the chest Comparison: 12/29/2017 Findings: Lungs and pleural spaces are clear. Left chest biventricular AICD is again demonstrated. No significant change Impression: Negative
[2018-03-12 18:15] VITALS: BP 133/59
[2018-03-12 21:00] VITALS: BP 141/61
[2018-03-12] MEDS: Lyrica 50mg cap ORAL SCH (22:12)
[2018-03-12] MEDS: Heparin 5000 units/ml inj SUBQ SCH (22:18)
[2018-03-12] MEDS: NovoLOG Insulin Flexpen SUBQ SCH (22:18)
[2018-03-12 22:30] VITALS: BP 132/61
[2018-03-13] VITALS (7 sets, daily range): BP systolic 120–127; BP diastolic 50–72
[2018-03-13] MEDS: NovoLOG Insulin Flexpen SUBQ SCH ×4 (06:16→21:34)
[2018-03-13 08:21] LABS: ANION GAP 8 mmol/L (5-15); BLOOD UREA NITROGEN 16 mg/dL (7-18); CALCIUM 8.6 MG/DL (8.5-10.1); CARBON DIOXIDE 31 MMOL/L (21-32); CHLORIDE 102 MMOL/L (98-107); CREATININE 1.3 MG/DL (0.55-1.30); POTASSIUM 3.8 MMOL/L (3.5-5.1); SODIUM 141 MMOL/L (136-145)
[2018-03-13] MEDS: Spironolactone 25mg tab ORAL SCH (09:01)
[2018-03-13] MEDS: Digoxin 0.125mg tab ORAL SCH (09:01)
[2018-03-13] MEDS: Lyrica 50mg cap ORAL SCH ×2 (09:02→21:32)
[2018-03-13] MEDS: Heparin 5000 units/ml inj SUBQ SCH ×2 (09:04→21:44)
[2018-03-13] MEDS ORDERED: OLANZapine 2.5mg tab ORAL PRN (12:45)
--- NOTE | 2018-03-13 12:56 | Consultation ---
History of Present Illness General Chief Complaint: Edema Present Illness HPI 73-year-old female with hx of mmp came to due to increased LE discomfort and swelling. the pt is turkmen speaking the pt was drowsy during the eval and was dosing off. the pt has not been eating (only 10%). the pt has cognitive impairment and has waxing and waning of consciousness Allergies: Coded Allergies: No Known Allergies (Unverified , 12/18/16) Medication History Scheduled Ascorbic Acid* (Ascorbic Acid*), 500 MG ORAL TWICE A DAY, (Reported) Aspirin Ec* (Aspirin Ec*), 81 MG ORAL DAILY, (Reported) Aspirin Ec* (Aspirin Ec*), 81 MG ORAL DAILY, (Reported) Atorvastatin Calcium* (Atorvastatin Calcium*), 20 MG ORAL BEDTIME, (Reported) Atorvastatin Calcium* (Atorvastatin Calcium*), 40 MG ORAL BEDTIME, (Reported) Carvedilol (Coreg), 6.25 MG ORAL EVERY 12 HOURS Carvedilol* (Carvedilol*), 3.125 MG ORAL EVERY 12 HOURS, (Reported) Carvedilol* (Carvedilol*), 3.125 MG ORAL EVERY 12 HOURS, (Reported) Clopidogrel Bisulfate* (Plavix*), 75 MG ORAL DAILY, (Reported) Clopidogrel* (Clopidogrel*), 75 MG ORAL DAILY, (Reported) Digoxin* (Digoxin*), 125 MCG ORAL DAILY, (Reported) Digoxin* (Digoxin*), Unknown Dose ORAL DAILY, (Reported) Docusate Sodium* (Docusate Sodium*), 250 MG ORAL TWICE A DAY, (Reported) Esomeprazole Magnesium (Nexium), 40 MG ORAL DAILY, (Reported) Furosemide* (Lasix*), 40 MG ORAL DAILY, (Reported) Furosemide* (Lasix*), 40 MG ORAL DAILY Gabapentin* (Gabapentin*), 300 MG ORAL THREE TIMES A DAY, (Reported) Glipizide* (Glucotrol Xl*), 10 MG ORAL BIDAC, (Reported) Insulin Aspart (Novolog Flexpen), 0 UNITS SUBQ BEFORE MEALS AND HS Insulin Glargine (Lantus), 0 SUBQ BEDTIME, (Reported) Isosorbide Dinitrate* (Isordil*), 30 MG ORAL DAILY, (Reported) Lisinopril (Lisinopril*), 20 MG ORAL DAILY, (Reported) Lisinopril* (Lisinopril*), Unknown Dose ORAL DAILY, (Reported) Loratadine (Loratadine), 10 MG PO DAILY, (Reported) Loratadine (Loratadine), 10 MG PO DAILY, (Reported) Metformin Hcl* (Metformin Hcl*), 1,000 MG ORAL BIDAC, (Reported) Multivitamins* (Multivitamins*), 1 TAB ORAL DAILY, (Reported) Omeprazole (Omeprazole), 40 MG ORAL DAILY, (Reported) Polyethylene Glycol 3350* (Polyethylene Glycol 3350*), 17 GM ORAL DAILY, ( Reported) Pregabalin (Lyrica), 50 MG ORAL BID, (Reported) Spironolactone* (Aldactone*), 25 MG ORAL DAILY, (Reported) Sucralfate (Carafate), 1 GM ORAL FOUR TIMES A DAY Scheduled PRN Acetaminophen* (Tylenol Extra Strength*), 500 MG ORAL Q6H PRN for Mild Pain/ Temp > 100.5, (Reported) Dicyclomine Hcl* (Dicyclomine Hcl*), 10 MG PO QID PRN for Abdominal cramps Miscellaneous Medications Docusate Sodium* (Docusate Sodium*), 250 MG ORAL, (Reported) Gabapentin* (Gabapentin*), Unknown Dose ORAL, (Reported) Insulin Detemir (Levemir Flextouch), 100 UNIT SQ, (Reported) Simethicone (Mi-Acid), 80 MG PO, (Reported) Simethicone (Mi-Acid), 80 MG PO, (Reported) Patient History Limited by: medical condition History Provided By: Patient, Medical Record Healthcare decision maker N Resuscitation status Full Code Advanced Directive on File No Past Medical/Surgical History Past Medical/Surgical History: (1) Hypertension (2) Hemiplegia affecting right dominant side (3) Acute pancreatitis (4) Dehydration (5) Hyperkalemia (6) Hyperkalemia (7) Diaphoresis (8) Anemia (9) Hypoxemia (10) Dysphagia (11) Respiratory distress (12) Gastritis (13) Hypercholesteremia (14) Hyperglycemia (15) Hypernatremia (16) Leukocytosis (17) Pancreatitis (18) Renal failure (19) Epigastric abdominal pain (20) Epigastric pain (21) Hypoalbuminemia (22) UTI (urinary tract infection) (23) Abdominal pain (24) Bronchitis (25) Chest pain (26) Hypotension (27) Pneumonia (28) Acid reflux (29) Left upper quadrant pain (30) Hepatic steatosis (31) High triglycerides (32) Sacral decubitus ulcer (33) Uncontrolled diabetes mellitus (34) Sigmoid thickening (35) Alkaline phosphatase elevation (36) E. coli UTI (37) Acute kidney injury (nontraumatic) (38) Right adrenal mass (39) Left bundle branch block (LBBB) (40) Acute encephalopathy (41) Intractable abdominal pain (42) Elevated d-dimer (43) Acute CHF (44) COPD (chronic obstructive pulmonary disease) (45) Diabetic neuropathy (46) Diabetes mellitus (47) CAD (coronary artery disease) (48) LBBB (left bundle branch block) (49) Peripheral vascular disease (50) Iron deficiency anemia (51) Diabetic nephropathy (52) Cardiomyopathy (53) Obesity (54) HTN (hypertension) (55) Multiple thyroid nodules (56) Steatosis of liver (57) Cerebral vascular disease (58) Right hemiparesis (59) EF 25% (60) ATN (acute tubular necrosis) (61) Hemiparesis, right (62) CHF exacerbation (63) Generalized weakness (64) Dyspnea (65) Acute renal failure (ARF) (66) Edema (67) Shortness of breath (68) Acute kidney injury (69) Hypocalcemia Review of Systems Psychiatric: Reports: prior hx, anxiety, depressed feelings Physical Exam General Appearance: no apparent distress, alert, lethargic - waxing and waning Last 24 Hour Vital Signs Date Time Temp Pulse Resp B/P (MAP) Pulse Ox O2 Delivery O2 Flow Rate FiO2 03/13/18 12:00 96.3 84 18 120/56 (77) 99 96.3 03/13/18 09:01 91 03/13/18 09:00 Nasal Cannula 2.0 03/13/18 08:00 98.8 91 18 127/56 (79) 93 98.8 03/13/18 07:41 92 03/13/18 04:00 97.7 85 16 126/54 (78) 100 97.7 03/13/18 03:51 85 03/13/18 00:00 97.3 83 16 125/63 (83) 98 97.3 03/12/18 23:30 83 03/12/18 22:43 Nasal Cannula 2.0 03/12/18 22:30 97.7 86 16 132/61 (84) 97 97.7 03/12/18 22:10 85 18 Nasal Cannula 2.0 28 03/12/18 21:35 97.9 91 19 140/62 100 Nasal Cannula 2.0 96 97.8 03/12/18 21:00 97.7 93 19 141/61 96 Nasal Cannula 2.0 96 97.7 03/12/18 18:15 97.8 82 16 133/59 100 Room Air 97.8 03/12/18 18:15 82 16 Room Air 03/12/18 13:28 98.3 91 20 143/74 91 Room Air 98.2 Intake and Output 03/12/18 03/13/18 19:00 07:00 Intake Total 340 ml Balance 340 ml Intake Oral 340 ml # Voids 2 Laboratory Tests Test 03/12/18 14:10 03/12/18 15:40 03/13/18 07:20 White Blood Count 12.5 K/UL (4.8-10.8) H Red Blood Count 4.50 M/UL (4.20-5.40) Hemoglobin 12.3 G/DL (12.0-16.0) Hematocrit 38.0 % (37.0-47.0) Mean Corpuscular Volume 84 FL (80-99) Mean Corpuscular Hemoglobin 27.3 PG (27.0-31.0) Mean Corpuscular Hemoglobin Concent 32.4 G/DL (32.0-36.0) Red Cell Distribution Width 14.0 % (11.6-14.8) Platelet Count 224 K/UL (150-450) Mean Platelet Volume 10.0 FL (6.5-10.1) Neutrophils (%) (Auto) 73.5 % (45.0-75.0) Lymphocytes (%) (Auto) 14.4 % (20.0-45.0) L Monocytes (%) (Auto) 8.8 % (1.0-10.0) Eosinophils (%) (Auto) 2.4 % (0.0-3.0) Basophils (%) (Auto) 0.8 % (0.0-2.0) Sodium Level 138 MMOL/L (136-145) 141 MMOL/L (136-145) Potassium Level 4.3 MMOL/L (3.5-5.1) 3.8 MMOL/L (3.5-5.1) Chloride Level 104 MMOL/L (98-107) 102 MMOL/L (98-107) Carbon Dioxide Level 26 MMOL/L (21-32) 31 MMOL/L (21-32) Anion Gap 8 mmol/L (5-15) 8 mmol/L (5-15) Blood Urea Nitrogen 18 mg/dL (7-18) 16 mg/dL (7-18) Creatinine 1.3 MG/DL (0.55-1.30) 1.3 MG/DL (0.55-1.30) Estimat Glomerular Filtration Rate mL/min (>60) mL/min (>60) Glucose Level 320 MG/DL (74-106) H 259 MG/DL (74-106) H Calcium Level 8.9 MG/DL (8.5-10.1) 8.6 MG/DL (8.5-10.1) Total Bilirubin 0.3 MG/DL (0.2-1.0) Aspartate Amino Transf (AST/SGOT) 28 U/L (15-37) Alanine Aminotransferase (ALT/SGPT) 20 U/L (12-78) Alkaline Phosphatase 114 U/L (46-116) Troponin I 0.071 ng/mL (0.000-0.056) Pro-B-Type Natriuretic Peptide 1677 pg/mL (0-125) H Total Protein 7.5 G/DL (6.4-8.2) Albumin 2.9 G/DL (3.4-5.0) L Globulin 4.6 g/dL Albumin/Globulin Ratio 0.6 (1.0-2.7) L Lipase 156 U/L (73-393) Thyroid Stimulating Hormone (TSH) 1.228 uiU/mL (0.358-3.740) Digoxin Level 1.7 NG/ML (0.9-2.0) Erythrocyte Sedimentation Rate 70 MM/HR (0-30) H Height (Feet): 5 Height (Inches): 1.00 Weight (Pounds): 174 Medications Current Medications Medications (Trade) Dose Ordered Sig/[place] Route PRN Reason Start Time Stop Time Status Last Admin Dose Admin Acetaminophen (Tylenol) 650 mg Q4H PRN ORAL Fever (temp>100.5F) 03/12/18 15:45 04/11/18 15:44 Albuterol/ Ipratropium (Albuterol/ Ipratropium) 3 ml Q4H PRN HHN Shortness of Breath 03/12/18 15:45 03/17/18 15:44 Clopidogrel Bisulfate (Plavix) 75 mg DAILY ORAL 03/13/18 09:00 04/12/18 08:59 03/13/18 09:01 Dextrose (Dextrose 50%) 25 ml Q30M PRN IV Hypoglycemia 03/12/18 15:45 04/11/18 15:42 Dextrose (Dextrose 50%) 50 ml Q30M PRN IV hypoglycemia 03/12/18 15:45 04/11/18 15:44 Digoxin (Lanoxin) 0.125 mg DAILY ORAL 03/13/18 09:00 04/12/18 08:59 03/13/18 09:01 Furosemide (Lasix) 40 mg EVERY 8 HOURS IV 03/12/18 22:00 04/11/18 21:59 03/13/18 05:28 Gabapentin (Neurontin) 300 mg TID ORAL 03/12/18 20:00 04/11/18 19:59 03/13/18 09:01 Heparin Sodium (Porcine) (Heparin 5000 units/ml) 5,000 units EVERY 12 HOURS SUBQ 03/12/18 21:00 04/11/18 20:59 03/13/18 09:04 Insulin Aspart (NovoLOG) BEFORE MEALS AND HS SUBQ 03/12/18 21:00 04/11/18 20:59 03/13/18 12:08 Olanzapine (ZyPREXA) 2.5 mg BEDTIME PRN ORAL agitation 03/13/18 12:45 04/12/18 12:44 UNV Ondansetron HCl (Zofran) 4 mg Q6H PRN IVP Nausea & Vomiting 03/12/18 15:45 04/11/18 15:44 Polyethylene Glycol (Miralax) 17 gm DAILYPRN PRN ORAL Constipation 03/12/18 15:45 04/11/18 15:44 Pregabalin (Lyrica) 50 mg Q12HR ORAL 03/12/18 21:00 04/11/18 20:59 03/13/18 09:02 Spironolactone (Aldactone) 25 mg DAILY ORAL 03/13/18 09:00 04/12/18 08:59 03/13/18 09:01 Temazepam (Restoril) 15 mg HSPRN PRN ORAL Insomnia 03/12/18 21:00 03/19/18 20:59 Assessment/Plan Assessment/Plan Encephalopathy due to metabolic d/o zyprexa 2.5mg qhs provided ro/Teresa Edwards MD Mar 13, 2018 12:56
--- NOTE | 2018-03-13 13:20 | Consultation ---
History of Present Illness General Date patient seen: Mar 13, 2018 Chief Complaint: Edema Present Illness HPI 72 y/old female with PMH of CVA with right hemiparesis, congestive heart failure with cardiomyopathy, AICD, history of [place] in 2016, history of cervical cancer in 2016, COPD, diabetes mellitus, presented to emergency room with shortness of breath and bilateral lower extremity swelling for the last few days Shortness of breath worse with exertion and while laying g flat6, better with rest. She is admitted to telemetry for further evaluation. Allergies: Coded Allergies: No Known Allergies (Unverified , 12/18/16) Medication History Scheduled Ascorbic Acid* (Ascorbic Acid*), 500 MG ORAL TWICE A DAY, (Reported) Aspirin Ec* (Aspirin Ec*), 81 MG ORAL DAILY, (Reported) Aspirin Ec* (Aspirin Ec*), 81 MG ORAL DAILY, (Reported) Atorvastatin Calcium* (Atorvastatin Calcium*), 20 MG ORAL BEDTIME, (Reported) Atorvastatin Calcium* (Atorvastatin Calcium*), 40 MG ORAL BEDTIME, (Reported) Carvedilol (Coreg), 6.25 MG ORAL EVERY 12 HOURS Carvedilol* (Carvedilol*), 3.125 MG ORAL EVERY 12 HOURS, (Reported) Carvedilol* (Carvedilol*), 3.125 MG ORAL EVERY 12 HOURS, (Reported) Clopidogrel Bisulfate* (Plavix*), 75 MG ORAL DAILY, (Reported) Clopidogrel* (Clopidogrel*), 75 MG ORAL DAILY, (Reported) Digoxin* (Digoxin*), 125 MCG ORAL DAILY, (Reported) Digoxin* (Digoxin*), Unknown Dose ORAL DAILY, (Reported) Docusate Sodium* (Docusate Sodium*), 250 MG ORAL TWICE A DAY, (Reported) Esomeprazole Magnesium (Nexium), 40 MG ORAL DAILY, (Reported) Furosemide* (Lasix*), 40 MG ORAL DAILY, (Reported) Furosemide* (Lasix*), 40 MG ORAL DAILY Gabapentin* (Gabapentin*), 300 MG ORAL THREE TIMES A DAY, (Reported) Glipizide* (Glucotrol Xl*), 10 MG ORAL BIDAC, (Reported) Insulin Aspart (Novolog Flexpen), 0 UNITS SUBQ BEFORE MEALS AND HS Insulin Glargine (Lantus), 0 SUBQ BEDTIME, (Reported) Isosorbide Dinitrate* (Isordil*), 30 MG ORAL DAILY, (Reported) Lisinopril (Lisinopril*), 20 MG ORAL DAILY, (Reported) Lisinopril* (Lisinopril*), Unknown Dose ORAL DAILY, (Reported) Loratadine (Loratadine), 10 MG PO DAILY, (Reported) Loratadine (Loratadine), 10 MG PO DAILY, (Reported) Metformin Hcl* (Metformin Hcl*), 1,000 MG ORAL BIDAC, (Reported) Multivitamins* (Multivitamins*), 1 TAB ORAL DAILY, (Reported) Omeprazole (Omeprazole), 40 MG ORAL DAILY, (Reported) Polyethylene Glycol 3350* (Polyethylene Glycol 3350*), 17 GM ORAL DAILY, ( Reported) Pregabalin (Lyrica), 50 MG ORAL BID, (Reported) Spironolactone* (Aldactone*), 25 MG ORAL DAILY, (Reported) Sucralfate (Carafate), 1 GM ORAL FOUR TIMES A DAY Scheduled PRN Acetaminophen* (Tylenol Extra Strength*), 500 MG ORAL Q6H PRN for Mild Pain/ Temp > 100.5, (Reported) Dicyclomine Hcl* (Dicyclomine Hcl*), 10 MG PO QID PRN for Abdominal cramps Miscellaneous Medications Docusate Sodium* (Docusate Sodium*), 250 MG ORAL, (Reported) Gabapentin* (Gabapentin*), Unknown Dose ORAL, (Reported) Insulin Detemir (Levemir Flextouch), 100 UNIT SQ, (Reported) Simethicone (Mi-Acid), 80 MG PO, (Reported) Simethicone (Mi-Acid), 80 MG PO, (Reported) Patient History Healthcare decision maker N Resuscitation status Full Code Advanced Directive on File No Past Medical/Surgical History Past Medical/Surgical History: (1) COPD (chronic obstructive pulmonary disease) (2) Diabetic neuropathy (3) Diabetes mellitus (4) CAD (coronary artery disease) (5) ATN (acute tubular necrosis) (6) Diabetic nephropathy (7) EF 25% (8) AICD (automatic cardioverter/defibrillator) present (9) Cerebral vascular disease (10) Multiple thyroid nodules Review of Systems All Other Systems: negative except mentioned in HPI Physical Exam General Appearance: WD/WN, overweight Lines, tubes and drains: peripheral HEENT: normocephalic, atraumatic, anicteric Neck: non-tender, normal alignment Respiratory/Chest: chest wall non-tender, lungs clear Cardiovascular/Chest: normal peripheral pulses, normal rate Abdomen: normal bowel sounds, non tender Genitourinary/Rectal: normal genital exam, normal rectal exam Extremities: normal range of motion Skin Exam: normal pigmentation 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 Last 24 Hour Vital Signs Date Time Temp Pulse Resp B/P (MAP) Pulse Ox O2 Delivery O2 Flow Rate FiO2 03/13/18 12:00 96.3 84 18 120/56 (77) 99 96.3 03/13/18 09:01 91 03/13/18 09:00 Nasal Cannula 2.0 03/13/18 08:00 98.8 91 18 127/56 (79) 93 98.8 03/13/18 07:41 92 03/13/18 04:00 97.7 85 16 126/54 (78) 100 97.7 03/13/18 03:51 85 03/13/18 00:00 97.3 83 16 125/63 (83) 98 97.3 03/12/18 23:30 83 03/12/18 22:43 Nasal Cannula 2.0 03/12/18 22:30 97.7 86 16 132/61 (84) 97 97.7 03/12/18 22:10 85 18 Nasal Cannula 2.0 28 03/12/18 21:35 97.9 91 19 140/62 100 Nasal Cannula 2.0 96 97.8 03/12/18 21:00 97.7 93 19 141/61 96 Nasal Cannula 2.0 96 97.7 03/12/18 18:15 97.8 82 16 133/59 100 Room Air 97.8 03/12/18 18:15 82 16 Room Air 03/12/18 13:28 98.3 91 20 143/74 91 Room Air 98.2 Intake and Output 03/12/18 03/13/18 19:00 07:00 Intake Total 340 ml Balance 340 ml Intake Oral 340 ml # Voids 2 Laboratory Tests Test 03/12/18 14:10 03/12/18 15:40 03/13/18 07:20 White Blood Count 12.5 K/UL (4.8-10.8) H Red Blood Count 4.50 M/UL (4.20-5.40) Hemoglobin 12.3 G/DL (12.0-16.0) Hematocrit 38.0 % (37.0-47.0) Mean Corpuscular Volume 84 FL (80-99) Mean Corpuscular Hemoglobin 27.3 PG (27.0-31.0) Mean Corpuscular Hemoglobin Concent 32.4 G/DL (32.0-36.0) Red Cell Distribution Width 14.0 % (11.6-14.8) Platelet Count 224 K/UL (150-450) Mean Platelet Volume 10.0 FL (6.5-10.1) Neutrophils (%) (Auto) 73.5 % (45.0-75.0) Lymphocytes (%) (Auto) 14.4 % (20.0-45.0) L Monocytes (%) (Auto) 8.8 % (1.0-10.0) Eosinophils (%) (Auto) 2.4 % (0.0-3.0) Basophils (%) (Auto) 0.8 % (0.0-2.0) Sodium Level 138 MMOL/L (136-145) 141 MMOL/L (136-145) Potassium Level 4.3 MMOL/L (3.5-5.1) 3.8 MMOL/L (3.5-5.1) Chloride Level 104 MMOL/L (98-107) 102 MMOL/L (98-107) Carbon Dioxide Level 26 MMOL/L (21-32) 31 MMOL/L (21-32) Anion Gap 8 mmol/L (5-15) 8 mmol/L (5-15) Blood Urea Nitrogen 18 mg/dL (7-18) 16 mg/dL (7-18) Creatinine 1.3 MG/DL (0.55-1.30) 1.3 MG/DL (0.55-1.30) Estimat Glomerular Filtration Rate mL/min (>60) mL/min (>60) Glucose Level 320 MG/DL (74-106) H 259 MG/DL (74-106) H Calcium Level 8.9 MG/DL (8.5-10.1) 8.6 MG/DL (8.5-10.1) Total Bilirubin 0.3 MG/DL (0.2-1.0) Aspartate Amino Transf (AST/SGOT) 28 U/L (15-37) Alanine Aminotransferase (ALT/SGPT) 20 U/L (12-78) Alkaline Phosphatase 114 U/L (46-116) Troponin I 0.071 ng/mL (0.000-0.056) Pro-B-Type Natriuretic Peptide 1677 pg/mL (0-125) H Total Protein 7.5 G/DL (6.4-8.2) Albumin 2.9 G/DL (3.4-5.0) L Globulin 4.6 g/dL Albumin/Globulin Ratio 0.6 (1.0-2.7) L Lipase 156 U/L (73-393) Thyroid Stimulating Hormone (TSH) 1.228 uiU/mL (0.358-3.740) Digoxin Level 1.7 NG/ML (0.9-2.0) Erythrocyte Sedimentation Rate 70 MM/HR (0-30) H Height (Feet): 5 Height (Inches): 1.00 Weight (Pounds): 174 Medications Current Medications Medications (Trade) Dose Ordered Sig/[place] Route PRN Reason Start Time Stop Time Status Last Admin Dose Admin Acetaminophen (Tylenol) 650 mg Q4H PRN ORAL Fever (temp>100.5F) 03/12/18 15:45 04/11/18 15:44 Albuterol/ Ipratropium (Albuterol/ Ipratropium) 3 ml Q4H PRN HHN Shortness of Breath 03/12/18 15:45 03/17/18 15:44 Clopidogrel Bisulfate (Plavix) 75 mg DAILY ORAL 03/13/18 09:00 04/12/18 08:59 03/13/18 09:01 Dextrose (Dextrose 50%) 25 ml Q30M PRN IV Hypoglycemia 03/12/18 15:45 04/11/18 15:42 Dextrose (Dextrose 50%) 50 ml Q30M PRN IV hypoglycemia 03/12/18 15:45 04/11/18 15:44 Digoxin (Lanoxin) 0.125 mg DAILY ORAL 03/13/18 09:00 04/12/18 08:59 03/13/18 09:01 Furosemide (Lasix) 40 mg EVERY 8 HOURS IV 03/12/18 22:00 04/11/18 21:59 03/13/18 05:28 Gabapentin (Neurontin) 300 mg TID ORAL 03/12/18 20:00 04/11/18 19:59 03/13/18 09:01 Heparin Sodium (Porcine) (Heparin 5000 units/ml) 5,000 units EVERY 12 HOURS SUBQ 03/12/18 21:00 04/11/18 20:59 03/13/18 09:04 Insulin Aspart (NovoLOG) BEFORE MEALS AND HS SUBQ 03/12/18 21:00 04/11/18 20:59 03/13/18 12:08 Olanzapine (ZyPREXA) 2.5 mg BEDTIME PRN ORAL agitation 03/13/18 12:45 04/12/18 12:44 Ondansetron HCl (Zofran) 4 mg Q6H PRN IVP Nausea & Vomiting 03/12/18 15:45 04/11/18 15:44 Polyethylene Glycol (Miralax) 17 gm DAILYPRN PRN ORAL Constipation 03/12/18 15:45 04/11/18 15:44 Pregabalin (Lyrica) 50 mg Q12HR ORAL 03/12/18 21:00 04/11/18 20:59 03/13/18 09:02 Spironolactone (Aldactone) 25 mg DAILY ORAL 03/13/18 09:00 04/12/18 08:59 03/13/18 09:01 Temazepam (Restoril) 15 mg HSPRN PRN ORAL Insomnia 03/12/18 21:00 03/19/18 20:59 Assessment/Plan Problem List: (1) Acute CHF ICD Codes: I50.9 - Heart failure, unspecified SNOMED: 75985738 (2) COPD (chronic obstructive pulmonary disease) ICD Codes: J44.9 - Chronic obstructive pulmonary disease, unspecified SNOMED: 27483994 (3) AICD (automatic cardioverter/defibrillator) present ICD Codes: Z95.810 - Presence of automatic (implantable) cardiac defibrillator SNOMED: 88068315, 477505067 (4) EF 25% (5) CAD (coronary artery disease) ICD Codes: I25.10 - Atherosclerotic heart disease of [place] coronary artery without angina pectoris SNOMED: 47690872 (6) Hemiparesis, right ICD Codes: G81.91 - Hemiplegia, unspecified affecting right dominant side SNOMED: 423858845 (7) Diabetes mellitus ICD Codes: E11.9 - Type 2 diabetes mellitus without complications SNOMED: 79240848 Assessment/Plan telemetry monitoring iv diuretics cardiology to see respiratory treatment sliding scale diabetic diet Ida Nolen MD Mar 13, 2018 13:19
--- NOTE | 2018-03-13 18:31 | Cardiology Report ---
APPROVED REPORT EXAM: Two-dimensional and M-mode echocardiogram with Doppler and color Doppler. INDICATION LV FUNCTION M-Mode DIMENSIONS IVSd1.4 (0.7-1.1cm)Left Atrium (MM)4.0 (1.6-4.0cm) LVDd4.7 (3.5-5.6cm)Aortic Root3.2 (2.0-3.7cm) PWd1.5 (0.7-1.1cm)Aortic Cusp Exc.1.5 (1.5-2.0cm) IVSs1.2 cm LVDs3.4 (2.5-4.0cm) PWs2.1 cm Global left ventricular hypokinesis akinetic mid to distal septum , apical endocardium seems poorly defind and wall motion of the apex cannot be adequately assessed Mild left ventricular enlargement . Left ventricular ejection fraction estimated to be 35-40%. No evidence of left ventricular hypertrophy . No evidence of pericardial effusion. Mild left atrial enlargement. Right cardiac chamber sizes are within normal limits. Focal aortic valvethickening opening is not adequately visulaized. Thickened mitral valve leaflets with normal excursion. Mitral annulus and aortic root calcification. Pulmonic valve not well visualized. Normal tricuspid valve structure. IVC at normal size without physiologic collapse, suggestive to increase RA pressure . Pacemaker wire present in the right side chambers. A color flow and spectral Doppler study was performed and revealed: Mild aortic insufficiency .Aorti valve peak gradient 22 and a mean gradient 10 mmhg is recorded across darryl aortic valve Mild to moderate mitral regurgitation. Mitral diastolic velocities suggest reduced left ventricular relaxation c/w mild LV diastolic dysfunction (Grade I ). Mild tricuspid regurgitation. Tricuspid systolic velocities suggests peak right ventricular systolic pressure of 16mmHg. No Pulmonic regurgitation present.
--- NOTE | 2018-03-13 19:03 | Cardiology Report ---
APPROVED REPORT EKG Measurement Heart [id number] atrial sensed ventricular paced
--- NOTE | 2018-03-13 19:50 | History & Physical ---
History and Physical History & Physicial Dictated for Int Med-Dr Wright no. [id number]. Ash Li MD Mar 13, 2018 19:50
--- NOTE | 2018-03-14 02:45 | History and Physical Report ---
DATE OF ADMISSION: 03/12/2018 CHIEF COMPLAINT: The patient is a 73-year-old female, who presents with a chief complaint of bilateral lower extremity swelling and shortness of breath. HISTORY OF PRESENT ILLNESS: The patient was admitted to [facility] from 12/23/2017 to 12/29/2017 for acute exacerbation of congestive heart failure. Please see history and physical and discharge summary dictated at that time. The patient presented to [facility] complaining of several-day history of increased swelling and pain of the bilateral lower extremities. The patient also began to have increasing shortness of breath. The patient presented to [facility] Emergency Room. The patient is admitted for bilateral lower extremity swelling and shortness of breath to rule out acute congestive heart failure. REVIEW OF SYSTEMS: CONSTITUTIONAL: The patient denies weight loss or weight gain. The patient denies fevers or chills. HEENT: The patient denies ear or throat pain. The patient denies headache. CARDIOVASCULAR: The patient denies palpitations or chest pain. CHEST: The patient complains of shortness of breath as above. The patient denies wheezes. ABDOMEN: The patient denies nausea, vomiting, diarrhea, or constipation. GENITOURINARY: The patient denies dysuria or increased frequency of urination. NEUROMUSCULAR: The patient complains of bilateral lower extremity swelling as above. PAST MEDICAL HISTORY: Significant for: 1. History of congestive heart failure. 2. Chronic obstructive pulmonary disease. 3. History of dilated cardiomyopathy. 4. Diabetes type 2. 5. Hypertension. 6. History of cerebrovascular accident. 7. History of right hemiparesis. 8. Iron deficiency anemia. 9. Complete left bundle-branch block, status post AICD placement. 10. History of cervical cancer, status post total abdominal hysterectomy. PAST SURGICAL HISTORY: Significant for: 1. Total abdominal hysterectomy. 2. Appendectomy. 3. AICD placement in November 2015. CURRENT MEDICATIONS: 1. Vitamin C 500 mg p.o. twice daily. 2. Aspirin 81 mg p.o. daily. 3. Atorvastatin 20 mg p.o. nightly. 4. Coreg 6.25 mg p.o. twice daily. 5. Plavix 75 mg p.o. daily. 6. Digoxin 0.125 mg p.o. daily. 7. Nexium 40 mg p.o. daily. 8. Lasix 40 mg p.o. daily. 9. Gabapentin 300 mg p.o. three times a day. 10. Glipizide 10 mg p.o. twice daily. 11. NovoLog sliding scale. 12. Levemir of an unknown dose nightly. 13. Lisinopril 20 mg p.o. daily. 14. Metformin 1000 mg p.o. twice daily. 15. Omeprazole 40 mg p.o. daily. 16. Lyrica 50 mg p.o. twice daily. 17. Sucralfate 1 g by p.o. four times daily. ALLERGIES: No known drug allergies. SOCIAL HISTORY: The patient is single and lives with her adult son. The patient denies tobacco or alcohol use. PHYSICAL EXAMINATION: VITAL SIGNS: Temperature 96.3, respirations 18, pulse 84, and blood pressure 120/56. GENERAL: The patient is a well-developed and well-nourished female, in no apparent distress. HEENT: Eyes, pupils are equal and responsive to light and accommodation. Extraocular movements are intact. NECK: Supple. No lymphadenopathy. CHEST: Lungs are clear to auscultation bilaterally with crackles heard one-third of the way up bilaterally. CARDIOVASCULAR: Regular rhythm and rate. S1 and S2 are normal without murmurs, rubs, or gallops. ABDOMEN: Soft, nontender, and nondistended. Positive bowel sounds. No evidence of hepatosplenomegaly. Currently, no rebound or guarding noted. EXTREMITIES: 2+ pitting edema bilaterally. Otherwise without clubbing or cyanosis. RECTAL/GENITAL: Refused. NEUROLOGIC: Cranial nerves II through XII are grossly intact without focal deficits. Motor strength is 5/5 bilaterally. Deep tendon reflexes are 2+ plantar. LABORATORY STUDIES: WBC 12.5, hemoglobin 12.3, hematocrit 38.0, and platelets 224,000. Sodium 138, potassium 4.3, chloride 104, CO2 26, BUN 18, and creatinine 1.3. Glucose elevated at 320. Troponin elevated at 0.071. BNP elevated at 1677. Digoxin was 1.7. ASSESSMENT: This is a 73-year-old female with: 1. Shortness of breath. 2. Edema of bilateral lower extremities. 3. Acute on chronic congestive heart failure. 4. Chronic obstructive pulmonary disease. 5. History of cardiomyopathy. 6. Diabetes type 2. 7. Hypertension. 8. History of cerebrovascular accident. 9. Right hemiparesis. 10. Iron deficiency anemia. 11. Complete left bundle-branch block, status post AICD placement. 12. History of cervical cancer, status post total abdominal hysterectomy. TREATMENT: 1. Shortness of breath/edema/congestive heart failure. Cardiology consultation has been obtained with Dr. Morejon. We will follow recommendations of Dr. Morejon. An echocardiogram is pending. 2. History of chronic obstructive pulmonary disease. The patient will be offered albuterol nebulized q.4 h. p.r.n. 3. Diabetes type 2. Continue Levemir and NovoLog sliding scale as above. Continue metformin as above. 4. Hypertension. Continue Coreg as above. 5. Right hemiparesis. 6. Iron deficiency anemia. 7. Complete left bundle-branch block, status post AICD placement. 8. History of cervical cancer, status post total abdominal hysterectomy. Ash Li M.D. DR: SEGUNDO JOB#: [id number] CC:
[2018-03-14 04:00] VITALS: BP 131/72
[2018-03-14] MEDS: NovoLOG Insulin Flexpen SUBQ SCH ×4 (06:49→20:22)
[2018-03-14 07:58] LABS: BASOPHILS % (AUTO) 0.8 % (0.0-2.0); EOSINOPHILS % (AUTO) 2.9 % (0.0-3.0); HEMATOCRIT 41.5 % (37.0-47.0); HEMOGLOBIN 13.1 G/DL (12.0-16.0); LYMPHOCYTES % (AUTO) 16.8 % (20.0-45.0); MEAN CORPUSCULAR VOLUME 86 FL (80-99); MONOCYTES % (AUTO) 6.7 % (1.0-10.0); NEUTROPHILS % (AUTO) 72.8 % (45.0-75.0); PLATELET COUNT 239 K/UL (150-450); RED BLOOD COUNT 4.82 M/UL (4.20-5.40); RED CELL DISTRIBUTION WIDTH 13.8 % (11.6-14.8); WHITE BLOOD COUNT 10.1 K/UL (4.8-10.8)
[2018-03-14 08:00] VITALS: BP 133/71
[2018-03-14 08:29] LABS: ALANINE AMINOTRANSFERASE 25 U/L (12-78); ALBUMIN/GLOBULIN RATIO 0.6 (1.0-2.7); ALKALINE PHOSPHATASE 111 U/L (46-116); ANION GAP 10 mmol/L (5-15); ASPARTATE AMINO TRANSFERASE 29 U/L (15-37); BILIRUBIN,TOTAL 0.4 MG/DL (0.2-1.0); BLOOD UREA NITROGEN 25 mg/dL (7-18); CALCIUM 8.6 MG/DL (8.5-10.1); CARBON DIOXIDE 30 MMOL/L (21-32); CHLORIDE 101 MMOL/L (98-107); CREATININE 1.5 MG/DL (0.55-1.30); PHOSPHORUS 3.5 MG/DL (2.5-4.9); POTASSIUM 3.5 MMOL/L (3.5-5.1); SODIUM 141 MMOL/L (136-145)
[2018-03-14] MEDS: Lyrica 50mg cap ORAL SCH ×2 (08:45→20:18)
[2018-03-14] MEDS: Spironolactone 25mg tab ORAL SCH (08:46)
[2018-03-14] MEDS: Digoxin 0.125mg tab ORAL SCH (08:46)
[2018-03-14] MEDS: Heparin 5000 units/ml inj SUBQ SCH ×2 (08:47→20:21)
--- NOTE | 2018-03-14 10:16 | Diagnostic Imaging Report ---
Indication: Shortness of breath Technique: One view of the chest Comparison: 03/12/2018 Findings: Lungs and pleural spaces remain clear. Left chest biventricular AICD again noted. The heart is mildly enlarged. No significant interim change Impression: Unchanged, over 2 days, findings as above. No acute process
--- NOTE | 2018-03-14 11:55 | General Progress Note ---
Assessment/Plan Status: stable, progressing Status Narrative Encephalopathy due to metabolic d/o dc zyprexa 2.5mg qhs provided ro/st ativan prn Subjective Date patient seen: Mar 14, 2018 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: Reports: anxiety Allergies: Coded Allergies: No Known Allergies (Unverified , 12/18/16) Subjective the pt is hyperglycemic and more anxious today. Objective Last 24 Hour Vital Signs Date Time Temp Pulse Resp B/P (MAP) Pulse Ox O2 Delivery O2 Flow Rate FiO2 03/14/18 09:00 Nasal Cannula 2.0 03/14/18 08:46 94 03/14/18 08:00 97.4 94 16 133/71 (91) 96 97.4 03/14/18 08:00 93 03/14/18 04:00 92 03/14/18 04:00 98.8 97 16 131/72 (91) 96 98.8 03/14/18 00:00 93 03/13/18 23:52 98.7 97 16 120/72 (88) 96 98.7 03/13/18 21:00 Nasal Cannula 2.0 03/13/18 20:00 99.0 94 18 124/66 (85) 96 99.0 03/13/18 20:00 90 03/13/18 16:00 96.3 94 18 127/50 (75) 93 96.3 03/13/18 15:46 92 03/13/18 12:00 96.3 84 18 120/56 (77) 99 96.3 Intake and Output 03/13/18 03/14/18 19:00 07:00 Intake Total 690 ml 480 ml Balance 690 ml 480 ml Intake Oral 690 ml 480 ml # Voids 3 4 # Bowel Movements 2 1 Laboratory Tests 03/14/18 07:30: White Blood Count 10.1, Red Blood Count 4.82, Hemoglobin 13.1, Hematocrit 41.5, Mean Corpuscular Volume 86, Mean Corpuscular Hemoglobin 27.2, Mean Corpuscular Hemoglobin Concent 31.6L, Red Cell Distribution Width 13.8, Platelet Count 239, Mean Platelet Volume 8.9, Neutrophils (%) (Auto) 72.8, Lymphocytes (%) (Auto) 16.8L, Monocytes (%) (Auto) 6.7, Eosinophils (%) (Auto) 2.9, Basophils (%) (Auto ) 0.8, Erythrocyte Sedimentation Rate 41H, Sodium Level 141, Potassium Level 3.5 , Chloride Level 101, Carbon Dioxide Level 30, Anion Gap 10, Blood Urea Nitrogen 25H, Creatinine 1.5H, Estimat Glomerular Filtration Rate , Glucose Level 325H, Calcium Level 8.6, Phosphorus Level 3.5, Magnesium Level 1.8, Total Bilirubin 0.4, Aspartate Amino Transf (AST/SGOT) 29, Alanine Aminotransferase ( ALT/SGPT) 25, Alkaline Phosphatase 111, Troponin I 0.055, Pro-B-Type Natriuretic Peptide 583H, Total Protein 8.0, Albumin 3.0L, Globulin 5.0, Albumin /Globulin Ratio 0.6L Height (Feet): 5 Height (Inches): 1.00 Weight (Pounds): 162 General Appearance: no apparent distress, alert Neurologic: oriented x 3, responsive, depressed affect Teresa Douglas MD Mar 14, 2018 11:55
[2018-03-14 12:00] VITALS: BP 116/61
[2018-03-14] MEDS ORDERED: LORazepam 1mg tab ORAL PRN (12:00)
--- NOTE | 2018-03-14 12:16 | Cardiac Electrophysiology PN ---
Subjective Subjective My office patient. [employer] BIV ICD and CHF Seen and examined and DW Dr Nolen and Jen Dictated [id number] Objective Last 24 Hour Vital Signs Date Time Temp Pulse Resp B/P (MAP) Pulse Ox O2 Delivery O2 Flow Rate FiO2 03/14/18 09:00 Nasal Cannula 2.0 03/14/18 08:46 94 03/14/18 08:00 97.4 94 16 133/71 (91) 96 97.4 03/14/18 08:00 93 03/14/18 04:00 92 03/14/18 04:00 98.8 97 16 131/72 (91) 96 98.8 03/14/18 00:00 93 03/13/18 23:52 98.7 97 16 120/72 (88) 96 98.7 03/13/18 21:00 Nasal Cannula 2.0 03/13/18 20:00 99.0 94 18 124/66 (85) 96 99.0 03/13/18 20:00 90 03/13/18 16:00 96.3 94 18 127/50 (75) 93 96.3 03/13/18 15:46 92 Intake and Output 03/13/18 03/14/18 19:00 07:00 Intake Total 690 ml 480 ml Balance 690 ml 480 ml Intake Oral 690 ml 480 ml # Voids 3 4 # Bowel Movements 2 1 Laboratory Tests Test 03/14/18 07:30 White Blood Count 10.1 K/UL (4.8-10.8) Red Blood Count 4.82 M/UL (4.20-5.40) Hemoglobin 13.1 G/DL (12.0-16.0) Hematocrit 41.5 % (37.0-47.0) Mean Corpuscular Volume 86 FL (80-99) Mean Corpuscular Hemoglobin 27.2 PG (27.0-31.0) Mean Corpuscular Hemoglobin Concent 31.6 G/DL (32.0-36.0) L Red Cell Distribution Width 13.8 % (11.6-14.8) Platelet Count 239 K/UL (150-450) Mean Platelet Volume 8.9 FL (6.5-10.1) Neutrophils (%) (Auto) 72.8 % (45.0-75.0) Lymphocytes (%) (Auto) 16.8 % (20.0-45.0) L Monocytes (%) (Auto) 6.7 % (1.0-10.0) Eosinophils (%) (Auto) 2.9 % (0.0-3.0) Basophils (%) (Auto) 0.8 % (0.0-2.0) Erythrocyte Sedimentation Rate 41 MM/HR (0-30) H Sodium Level 141 MMOL/L (136-145) Potassium Level 3.5 MMOL/L (3.5-5.1) Chloride Level 101 MMOL/L (98-107) Carbon Dioxide Level 30 MMOL/L (21-32) Anion Gap 10 mmol/L (5-15) Blood Urea Nitrogen 25 mg/dL (7-18) H Creatinine 1.5 MG/DL (0.55-1.30) H Estimat Glomerular Filtration Rate mL/min (>60) Glucose Level 325 MG/DL (74-106) H Calcium Level 8.6 MG/DL (8.5-10.1) Phosphorus Level 3.5 MG/DL (2.5-4.9) Magnesium Level 1.8 MG/DL (1.8-2.4) Total Bilirubin 0.4 MG/DL (0.2-1.0) Aspartate Amino Transf (AST/SGOT) 29 U/L (15-37) Alanine Aminotransferase (ALT/SGPT) 25 U/L (12-78) Alkaline Phosphatase 111 U/L (46-116) Troponin I 0.055 ng/mL (0.000-0.056) Pro-B-Type Natriuretic Peptide 583 pg/mL (0-125) H Total Protein 8.0 G/DL (6.4-8.2) Albumin 3.0 G/DL (3.4-5.0) L Globulin 5.0 g/dL Albumin/Globulin Ratio 0.6 (1.0-2.7) L Remi Howard MD Mar 14, 2018 12:16
--- NOTE | 2018-03-14 12:26 | Internal Med Progress Note ---
Subjective Date of Service: Mar 14, 2018 Physician Name Ash Li Attending Physician Brendan Wright MD Current Medications Medications (Trade) Dose Ordered Sig/[place] Route PRN Reason Start Time Stop Time Status Last Admin Dose Admin Acetaminophen (Tylenol) 650 mg Q4H PRN ORAL Fever (temp>100.5F) 03/12/18 15:45 04/11/18 15:44 Albuterol/ Ipratropium (Albuterol/ Ipratropium) 3 ml Q4H PRN HHN Shortness of Breath 03/12/18 15:45 03/17/18 15:44 Carvedilol (Coreg) 3.125 mg EVERY 12 HOURS ORAL 03/14/18 21:00 04/13/18 20:59 UNV Clopidogrel Bisulfate (Plavix) 75 mg DAILY ORAL 03/13/18 09:00 04/12/18 08:59 03/14/18 08:45 Dextrose (Dextrose 50%) 25 ml Q30M PRN IV Hypoglycemia 03/14/18 12:00 04/13/18 11:59 Dextrose (Dextrose 50%) 50 ml Q30M PRN IV Hypoglycemia 03/14/18 12:00 04/13/18 11:59 Digoxin (Lanoxin) 0.125 mg DAILY ORAL 03/13/18 09:00 04/12/18 08:59 03/14/18 08:46 Furosemide (Lasix) 40 mg EVERY 8 HOURS IV 03/12/18 22:00 04/11/18 21:59 03/14/18 06:55 Gabapentin (Neurontin) 300 mg TID ORAL 03/12/18 20:00 04/11/18 19:59 03/14/18 08:45 Heparin Sodium (Porcine) (Heparin 5000 units/ml) 5,000 units EVERY 12 HOURS SUBQ 03/12/18 21:00 04/11/18 20:59 03/14/18 08:47 Insulin Aspart (NovoLOG) BEFORE MEALS AND HS SUBQ 03/14/18 12:16 04/13/18 12:15 Lisinopril (Zestril) 10 mg DAILY ORAL 03/15/18 09:00 04/14/18 08:59 UNV Lorazepam (Ativan) 1 mg Q6H PRN ORAL For Anxiety 03/14/18 12:00 03/21/18 11:59 Ondansetron HCl (Zofran) 4 mg Q6H PRN IVP Nausea & Vomiting 03/12/18 15:45 04/11/18 15:44 Polyethylene Glycol (Miralax) 17 gm DAILYPRN PRN ORAL Constipation 03/12/18 15:45 04/11/18 15:44 Pregabalin (Lyrica) 50 mg Q12HR ORAL 03/12/18 21:00 04/11/18 20:59 03/14/18 08:45 Spironolactone (Aldactone) 25 mg DAILY ORAL 03/13/18 09:00 04/12/18 08:59 03/14/18 08:46 Temazepam (Restoril) 15 mg HSPRN PRN ORAL Insomnia 03/12/18 21:00 03/19/18 20:59 Allergies: Coded Allergies: No Known Allergies (Unverified , 12/18/16) ROS Limited/Unobtainable: No Constitutional: Reports: no symptoms HEENT: Reports: no symptoms Cardiovascular: Reports: no symptoms Respiratory: Reports: shortness of breath Gastrointestinal/Abdominal: Reports: no symptoms Genitourinary: Reports: no symptoms 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: Reports: no symptoms Subjective 73 YO F admitted with leg swelling and shortness of breath. Now CHF exacerbation. Cover for Int Med-Dr Wright Objective Last Vital Signs Date Time Temp Pulse Resp B/P (MAP) Pulse Ox O2 Delivery O2 Flow Rate FiO2 03/14/18 09:00 Nasal Cannula 2.0 03/14/18 08:46 94 03/14/18 08:00 97.4 16 133/71 (91) 96 97.4 03/12/18 22:10 28 Laboratory Tests Test 03/14/18 07:30 White Blood Count 10.1 K/UL (4.8-10.8) Red Blood Count 4.82 M/UL (4.20-5.40) Hemoglobin 13.1 G/DL (12.0-16.0) Hematocrit 41.5 % (37.0-47.0) Mean Corpuscular Volume 86 FL (80-99) Mean Corpuscular Hemoglobin 27.2 PG (27.0-31.0) Mean Corpuscular Hemoglobin Concent 31.6 G/DL (32.0-36.0) L Red Cell Distribution Width 13.8 % (11.6-14.8) Platelet Count 239 K/UL (150-450) Mean Platelet Volume 8.9 FL (6.5-10.1) Neutrophils (%) (Auto) 72.8 % (45.0-75.0) Lymphocytes (%) (Auto) 16.8 % (20.0-45.0) L Monocytes (%) (Auto) 6.7 % (1.0-10.0) Eosinophils (%) (Auto) 2.9 % (0.0-3.0) Basophils (%) (Auto) 0.8 % (0.0-2.0) Erythrocyte Sedimentation Rate 41 MM/HR (0-30) H Sodium Level 141 MMOL/L (136-145) Potassium Level 3.5 MMOL/L (3.5-5.1) Chloride Level 101 MMOL/L (98-107) Carbon Dioxide Level 30 MMOL/L (21-32) Anion Gap 10 mmol/L (5-15) Blood Urea Nitrogen 25 mg/dL (7-18) H Creatinine 1.5 MG/DL (0.55-1.30) H Estimat Glomerular Filtration Rate mL/min (>60) Glucose Level 325 MG/DL (74-106) H Calcium Level 8.6 MG/DL (8.5-10.1) Phosphorus Level 3.5 MG/DL (2.5-4.9) Magnesium Level 1.8 MG/DL (1.8-2.4) Total Bilirubin 0.4 MG/DL (0.2-1.0) Aspartate Amino Transf (AST/SGOT) 29 U/L (15-37) Alanine Aminotransferase (ALT/SGPT) 25 U/L (12-78) Alkaline Phosphatase 111 U/L (46-116) Troponin I 0.055 ng/mL (0.000-0.056) Pro-B-Type Natriuretic Peptide 583 pg/mL (0-125) H Total Protein 8.0 G/DL (6.4-8.2) Albumin 3.0 G/DL (3.4-5.0) L Globulin 5.0 g/dL Albumin/Globulin Ratio 0.6 (1.0-2.7) L Intake and Output 03/13/18 03/14/18 19:00 07:00 Intake Total 690 ml 480 ml Balance 690 ml 480 ml Intake Oral 690 ml 480 ml # Voids 3 4 # Bowel Movements 2 1 Objective PHYSICAL EXAMINATION: GENERAL: The patient is a well-developed and well-nourished female, in no apparent distress. HEENT: Eyes, pupils are equal and responsive to light and accommodation. Extraocular movements are intact. NECK: Supple. No lymphadenopathy. CHEST: Lungs are clear to auscultation bilaterally with crackles heard one-third of the way up bilaterally. CARDIOVASCULAR: Regular rhythm and rate. S1 and S2 are normal without murmurs, rubs, or gallops. ABDOMEN: Soft, nontender, and nondistended. Positive bowel sounds. No evidence of hepatosplenomegaly. Currently, no rebound or guarding noted. EXTREMITIES: 2+ pitting edema bilaterally. Otherwise without clubbing or cyanosis. RECTAL/GENITAL: Refused. NEUROLOGIC: Cranial nerves II through XII are grossly intact without focal deficits. Motor strength is 5/5 bilaterally. Deep tendon reflexes are 2+ plantar. Assessment/Plan Problem List: (1) HTN (hypertension) Assessment & Plan: Continue coreg, zestril and spirinolactone. (2) Cardiomyopathy Assessment & Plan: LVEF=25% (3) Dyspnea Assessment & Plan: Due to CHF. See cardiology note. (4) Edema (5) Acute CHF Assessment & Plan: See cardiology note. (6) COPD (chronic obstructive pulmonary disease) (7) Diabetes mellitus (8) Cerebral vascular disease (9) Hemiparesis, right (10) EF 25% (11) AICD (automatic cardioverter/defibrillator) present (12) Left bundle branch block (LBBB) Assessment & Plan: S/P AICD Status: not improved Ash Li MD Mar 14, 2018 12:26
--- NOTE | 2018-03-14 12:29 | Pulmonology Progress Note ---
Assessment/Plan Problems: (1) Acute CHF (2) COPD (chronic obstructive pulmonary disease) (3) AICD (automatic cardioverter/defibrillator) present (4) EF 25% (5) CAD (coronary artery disease) (6) Hemiparesis, right (7) Diabetes mellitus Assessment/Plan improving cxr is clear decrease lasix dose respiratory treatment sliding scale diabetic diet cardio to see. Subjective ROS Limited/Unobtainable: No Constitutional: Reports: no symptoms HEENT: Repors: no symptoms Respiratory: Reports: no symptoms Allergies: Coded Allergies: No Known Allergies (Unverified , 12/18/16) Objective Last 24 Hour Vital Signs Date Time Temp Pulse Resp B/P (MAP) Pulse Ox O2 Delivery O2 Flow Rate FiO2 03/14/18 09:00 Nasal Cannula 2.0 03/14/18 08:46 94 03/14/18 08:00 97.4 94 16 133/71 (91) 96 97.4 03/14/18 08:00 93 03/14/18 04:00 92 03/14/18 04:00 98.8 97 16 131/72 (91) 96 98.8 03/14/18 00:00 93 03/13/18 23:52 98.7 97 16 120/72 (88) 96 98.7 03/13/18 21:00 Nasal Cannula 2.0 03/13/18 20:00 99.0 94 18 124/66 (85) 96 99.0 03/13/18 20:00 90 03/13/18 16:00 96.3 94 18 127/50 (75) 93 96.3 03/13/18 15:46 92 Intake and Output 03/13/18 03/14/18 19:00 07:00 Intake Total 690 ml 480 ml Balance 690 ml 480 ml Intake Oral 690 ml 480 ml # Voids 3 4 # Bowel Movements 2 1 General Appearance: WD/WN HEENT: normocephalic, atraumatic Respiratory/Chest: chest wall non-tender, lungs clear Breasts: no masses Cardiovascular: normal peripheral pulses Abdomen: normal bowel sounds, soft, non tender Genitourinary: normal external genitalia Extremities: no cyanosis Skin: no rash 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 Lymphatic: no neck adenopathy Laboratory Tests 03/14/18 07:30: White Blood Count 10.1, Red Blood Count 4.82, Hemoglobin 13.1, Hematocrit 41.5, Mean Corpuscular Volume 86, Mean Corpuscular Hemoglobin 27.2, Mean Corpuscular Hemoglobin Concent 31.6L, Red Cell Distribution Width 13.8, Platelet Count 239, Mean Platelet Volume 8.9, Neutrophils (%) (Auto) 72.8, Lymphocytes (%) (Auto) 16.8L, Monocytes (%) (Auto) 6.7, Eosinophils (%) (Auto) 2.9, Basophils (%) (Auto ) 0.8, Erythrocyte Sedimentation Rate 41H, Sodium Level 141, Potassium Level 3.5 , Chloride Level 101, Carbon Dioxide Level 30, Anion Gap 10, Blood Urea Nitrogen 25H, Creatinine 1.5H, Estimat Glomerular Filtration Rate , Glucose Level 325H, Calcium Level 8.6, Phosphorus Level 3.5, Magnesium Level 1.8, Total Bilirubin 0.4, Aspartate Amino Transf (AST/SGOT) 29, Alanine Aminotransferase ( ALT/SGPT) 25, Alkaline Phosphatase 111, Troponin I 0.055, Pro-B-Type Natriuretic Peptide 583H, Total Protein 8.0, Albumin 3.0L, Globulin 5.0, Albumin /Globulin Ratio 0.6L Current Medications Medications (Trade) Dose Ordered Sig/[place] Route PRN Reason Start Time Stop Time Status Last Admin Dose Admin Acetaminophen (Tylenol) 650 mg Q4H PRN ORAL Fever (temp>100.5F) 03/12/18 15:45 04/11/18 15:44 Albuterol/ Ipratropium (Albuterol/ Ipratropium) 3 ml Q4H PRN HHN Shortness of Breath 03/12/18 15:45 03/17/18 15:44 Carvedilol (Coreg) 3.125 mg EVERY 12 HOURS ORAL 03/14/18 21:00 04/13/18 20:59 Clopidogrel Bisulfate (Plavix) 75 mg DAILY ORAL 03/13/18 09:00 04/12/18 08:59 03/14/18 08:45 Dextrose (Dextrose 50%) 25 ml Q30M PRN IV Hypoglycemia 03/14/18 12:00 04/13/18 11:59 Dextrose (Dextrose 50%) 50 ml Q30M PRN IV Hypoglycemia 03/14/18 12:00 04/13/18 11:59 Digoxin (Lanoxin) 0.125 mg DAILY ORAL 03/13/18 09:00 04/12/18 08:59 03/14/18 08:46 Furosemide (Lasix) 20 mg BID IV 03/14/18 18:00 04/11/18 21:59 Gabapentin (Neurontin) 300 mg TID ORAL 03/12/18 20:00 04/11/18 19:59 03/14/18 08:45 Heparin Sodium (Porcine) (Heparin 5000 units/ml) 5,000 units EVERY 12 HOURS SUBQ 03/12/18 21:00 04/11/18 20:59 03/14/18 08:47 Insulin Aspart (NovoLOG) BEFORE MEALS AND HS SUBQ 03/14/18 12:16 04/13/18 12:15 Lisinopril (Zestril) 10 mg DAILY ORAL 03/15/18 09:00 04/14/18 08:59 Lorazepam (Ativan) 1 mg Q6H PRN ORAL For Anxiety 03/14/18 12:00 03/21/18 11:59 Ondansetron HCl (Zofran) 4 mg Q6H PRN IVP Nausea & Vomiting 03/12/18 15:45 04/11/18 15:44 Polyethylene Glycol (Miralax) 17 gm DAILYPRN PRN ORAL Constipation 03/12/18 15:45 04/11/18 15:44 Pregabalin (Lyrica) 50 mg Q12HR ORAL 03/12/18 21:00 04/11/18 20:59 03/14/18 08:45 Spironolactone (Aldactone) 25 mg DAILY ORAL 03/13/18 09:00 04/12/18 08:59 03/14/18 08:46 Temazepam (Restoril) 15 mg HSPRN PRN ORAL Insomnia 03/12/18 21:00 03/19/18 20:59 Ida Nolen MD Mar 14, 2018 12:29
[2018-03-14 16:00] VITALS: BP 126/61
--- NOTE | 2018-03-14 16:11 | Diagnostic Imaging Report ---
APPROVED REPORT CPT Code: 00369 Present Symptoms Shortness of breath BILATERAL: Imaging reveals a patent deep venous system bilaterally. There is no evidence of thrombus within the femoral, popliteal or tibial segments. The greater saphenous veins are also within normal limits. Doppler indicates normal spontaneous flow within these segments.
[2018-03-14] MEDS ORDERED: NovoLOG Insulin Flexpen SUBQ SCH (16:30)
[2018-03-14 20:58] VITALS: BP 116/59
[2018-03-15] VITALS: BP 112/61
--- NOTE | 2018-03-15 00:30 | Consultation ---
DATE OF CONSULTATION: 03/14/2018 CARDIOLOGY CONSULTATION CONSULTING PHYSICIAN: Remi Howard M.D. REFERRING PHYSICIAN: Berndan Wright M.D. REASON FOR CONSULTATION: Management of the patient's congestive heart failure, hypertension, and defibrillator. HISTORY OF PRESENT ILLNESS: The patient is a very pleasant 73-year-old lady under my Cardiology care for many years, who is my office patient with history of severe cardiomyopathy with ejection fraction of 25% also underwent a Biotronik biventricular defibrillator implantation by me. Her ICD was recently interrogated in the office that showed normal function. The patient also has history of diabetes, hyperlipidemia, as well as history of chronic kidney disease. The patient was brought to the emergency room for bilateral lower extremity edema as well as shortness of breath. The patient was also recently at [facility] on 12/23/2017 when I was out of town and was seen by another membership counselor. The patient was admitted and a Cardiology consultation was requested for further evaluation and management. PAST MEDICAL HISTORY: 1. Hypertension. 2. 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 3. Underlying complete left bundle-branch block. 4. Status post Biotronik biventricular defibrillator implantation by me. 5. Diabetes. 6. CVA. 7. Iron deficiency anemia. 8. History of cervical cancer status post total abdominal hysterectomy. MEDICATIONS: Per reconciliation. FAMILY HISTORY: Noncontributory. SOCIAL HISTORY: Single. Lives with her adult son. Does not smoke or drink alcohol. REVIEW OF SYSTEMS: Negative other than what is mentioned in the history of present illness. PHYSICAL EXAMINATION: VITAL SIGNS: Show blood pressure of 132/71, pulse is 94, respirations 18, and she is afebrile. HEAD AND NECK: Shows positive JVD. LUNGS: Bibasilar rales. CARDIOVASCULAR: Regular S1 and S2 with no gallop or murmur. Defibrillator is in the left subclavian. ABDOMEN: Soft. EXTREMITIES: A 2+ pitting edema. LABORATORY DATA: Her labs show white count of 10.5, hemoglobin 13.5, hematocrit 41.5, and platelet count of 239,000. Sodium 141, potassium 3.5, BUN of 25, creatinine 1.5, and glucose of 221. Troponin is 0.07 and 0.055. BNP is 583. Echocardiogram from 03/12/2018 showed ejection fraction of 35% to 40%. ASSESSMENT AND PLAN: 1. Exacerbation of congestive heart failure in a patient with severe cardiomyopathy. Continue Lasix 40 mg IV every 8 hours in addition to Aldactone 25 mg daily and digoxin 0.125 mg daily. Started the patient on Coreg and lisinopril as well. We will watch the patient clinically. 2. Status post Biotronik biventricular defibrillator implantation. IC was interrogated in the office recently and will be re-interrogated while she is in the hospital for further evaluation. 3. Renal failure. Creatinine was 1.3 on admission, 1.5. Watch her creatinine while she is on Lasix. 4. Troponin leak. Nonspecific. Second troponin is negative. 5. Metabolic encephalopathy and anxiety, improving under the management of Dr. Douglas. 6. History of cerebrovascular accident with right-sided paresis. 7. History of cervical cancer in 2016 status post surgery. 8. Chronic obstructive pulmonary disease. Thank you very much, Dr. Wright for allowing me to participate in the care of this patient. Please do not hesitate to contact me for any questions regarding my evaluation. Remi Howard M.D. DR: ROBERT JOB#: [id number] CC:
[2018-03-15 04:00] VITALS: BP 125/58
[2018-03-15] MEDS: NovoLOG Insulin Flexpen SUBQ SCH ×4 (06:12→22:08)
[2018-03-15 07:29] LABS: EOSINOPHILS % (AUTO) 4.1 % (0.0-3.0); HEMATOCRIT 38.9 % (37.0-47.0); HEMOGLOBIN 12.4 G/DL (12.0-16.0); LYMPHOCYTES % (AUTO) 17.7 % (20.0-45.0); MEAN CORPUSCULAR VOLUME 86 FL (80-99); MONOCYTES % (AUTO) 10.1 % (1.0-10.0); NEUTROPHILS % (AUTO) 67.1 % (45.0-75.0); PLATELET COUNT 234 K/UL (150-450); RED BLOOD COUNT 4.55 M/UL (4.20-5.40); RED CELL DISTRIBUTION WIDTH 13.7 % (11.6-14.8); WHITE BLOOD COUNT 10.1 K/UL (4.8-10.8)
[2018-03-15 07:50] LABS: ALANINE AMINOTRANSFERASE 24 U/L (12-78); ALBUMIN 2.9 G/DL (3.4-5.0); ALBUMIN/GLOBULIN RATIO 0.6 (1.0-2.7); ALKALINE PHOSPHATASE 100 U/L (46-116); ANION GAP 7 mmol/L (5-15); ASPARTATE AMINO TRANSFERASE 28 U/L (15-37); BILIRUBIN,TOTAL 0.4 MG/DL (0.2-1.0); BLOOD UREA NITROGEN 29 mg/dL (7-18); CARBON DIOXIDE 31 MMOL/L (21-32); CHLORIDE 102 MMOL/L (98-107); CREATININE 1.5 MG/DL (0.55-1.30); POTASSIUM 3.8 MMOL/L (3.5-5.1); SODIUM 140 MMOL/L (136-145)
[2018-03-15 08:00] VITALS: BP 123/66
[2018-03-15] MEDS: Spironolactone 25mg tab ORAL SCH (08:36)
[2018-03-15] MEDS: Lyrica 50mg cap ORAL SCH ×2 (08:37→22:02)
[2018-03-15] MEDS: Digoxin 0.125mg tab ORAL SCH (08:44)
[2018-03-15] MEDS: Lisinopril 10mg tab ORAL SCH (08:45)
[2018-03-15] MEDS: Heparin 5000 units/ml inj SUBQ SCH ×2 (08:46→22:08)
[2018-03-15 12:00] VITALS: BP 126/92
--- NOTE | 2018-03-15 12:46 | Pulmonology Progress Note ---
Assessment/Plan Problems: (1) Acute CHF (2) COPD (chronic obstructive pulmonary disease) (3) AICD (automatic cardioverter/defibrillator) present (4) EF 25% (5) CAD (coronary artery disease) (6) Hemiparesis, right (7) Diabetes mellitus Assessment/Plan improving cxr is clear hold lasix dose respiratory treatment sliding scale diabetic diet dc home in am Subjective ROS Limited/Unobtainable: No Constitutional: Reports: no symptoms HEENT: Repors: no symptoms Respiratory: Reports: no symptoms Allergies: Coded Allergies: No Known Allergies (Unverified , 12/18/16) Objective Last 24 Hour Vital Signs Date Time Temp Pulse Resp B/P (MAP) Pulse Ox O2 Delivery O2 Flow Rate FiO2 03/15/18 09:00 Nasal Cannula 2.0 03/15/18 08:45 123/60 03/15/18 08:44 92 123/60 03/15/18 08:44 92 03/15/18 08:16 Nasal Cannula 2.0 28 03/15/18 08:16 95 Nasal Cannula 2.0 28 03/15/18 08:16 90 18 Nasal Cannula 2.0 28 03/15/18 08:00 98.2 92 20 123/66 (85) 90 98.2 03/15/18 08:00 90 03/15/18 04:00 97.2 85 20 125/58 (80) 90 97.2 03/15/18 04:00 84 03/15/18 00:00 98.5 92 21 112/61 (78) 97 98.5 03/14/18 21:00 Nasal Cannula 2.0 03/14/18 20:58 99.1 97 20 116/59 (78) 95 99.1 03/14/18 20:19 94 126/61 03/14/18 20:00 96 03/14/18 19:55 Nasal Cannula 2.0 28 03/14/18 19:55 96 Nasal Cannula 2.0 28 03/14/18 19:54 94 18 Nasal Cannula 2.0 28 03/14/18 16:00 92 03/14/18 16:00 98.4 94 18 126/61 (82) 96 98.4 Intake and Output 03/14/18 03/15/18 19:00 07:00 Intake Total 480 ml Balance 480 ml Intake Oral 480 ml # Voids 4 # Bowel Movements 1 General Appearance: WD/WN HEENT: normocephalic, atraumatic Respiratory/Chest: chest wall non-tender, lungs clear Breasts: no masses Cardiovascular: normal peripheral pulses, normal rate Abdomen: normal bowel sounds, soft, non tender Genitourinary: normal external genitalia Extremities: no cyanosis Skin: no rash 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 Complete 03/12/18 21:10 Rectum - Final NO CARBAPENEM-RESISTANT ENTEROBACTERI... Complete 03/12/18 21:10 Rectum VRE Culture - Final NO VANCOMYCIN RESISTANT ENTEROCOCCUS ... Complete Laboratory Tests 03/15/18 06:35: White Blood Count 10.1, Red Blood Count 4.55, Hemoglobin 12.4, Hematocrit 38.9, Mean Corpuscular Volume 86, Mean Corpuscular Hemoglobin 27.2, Mean Corpuscular Hemoglobin Concent 31.8L, Red Cell Distribution Width 13.7, Platelet Count 234, Mean Platelet Volume 9.9, Neutrophils (%) (Auto) 67.1, Lymphocytes (%) (Auto) 17.7L, Monocytes (%) (Auto) 10.1H, Eosinophils (%) (Auto) 4.1H, Basophils (%) ( Auto) 1.0, Sodium Level 140, Potassium Level 3.8, Chloride Level 102, Carbon Dioxide Level 31, Anion Gap 7, Blood Urea Nitrogen 29H, Creatinine 1.5H, Estimat Glomerular Filtration Rate , Glucose Level 371H, Calcium Level 9.0, Total Bilirubin 0.4, Aspartate Amino Transf (AST/SGOT) 28, Alanine Aminotransferase (ALT/SGPT) 24, Alkaline Phosphatase 100, Pro-B-Type Natriuretic Peptide 591H, Total Protein 7.5, Albumin 2.9L, Globulin 4.6, Albumin /Globulin Ratio 0.6L Current Medications Medications (Trade) Dose Ordered Sig/[place] Route PRN Reason Start Time Stop Time Status Last Admin Dose Admin Acetaminophen (Tylenol) 650 mg Q4H PRN ORAL Fever (temp>100.5F) 03/12/18 15:45 04/11/18 15:44 Albuterol/ Ipratropium (Albuterol/ Ipratropium) 3 ml Q4H PRN HHN Shortness of Breath 03/12/18 15:45 03/17/18 15:44 Carvedilol (Coreg) 3.125 mg EVERY 12 HOURS ORAL 03/14/18 21:00 04/13/18 20:59 03/15/18 08:44 Clopidogrel Bisulfate (Plavix) 75 mg DAILY ORAL 03/13/18 09:00 04/12/18 08:59 03/15/18 08:36 Dextrose (Dextrose 50%) 25 ml Q30M PRN IV Hypoglycemia 03/14/18 12:00 04/13/18 11:59 Dextrose (Dextrose 50%) 50 ml Q30M PRN IV Hypoglycemia 03/14/18 12:00 04/13/18 11:59 Digoxin (Lanoxin) 0.125 mg DAILY ORAL 03/13/18 09:00 04/12/18 08:59 03/15/18 08:44 Furosemide (Lasix) 20 mg BID IV 03/14/18 18:00 04/11/18 21:59 03/15/18 08:37 Gabapentin (Neurontin) 300 mg TID ORAL 03/12/18 20:00 04/11/18 19:59 03/15/18 12:02 Heparin Sodium (Porcine) (Heparin 5000 units/ml) 5,000 units EVERY 12 HOURS SUBQ 03/12/18 21:00 04/11/18 20:59 03/15/18 08:46 Insulin Aspart (NovoLOG) BEFORE MEALS AND HS SUBQ 03/14/18 12:16 04/13/18 12:15 03/15/18 12:02 Lisinopril (Zestril) 10 mg DAILY ORAL 03/15/18 09:00 04/14/18 08:59 03/15/18 08:45 Lorazepam (Ativan) 1 mg Q6H PRN ORAL For Anxiety 03/14/18 12:00 03/21/18 11:59 Ondansetron HCl (Zofran) 4 mg Q6H PRN IVP Nausea & Vomiting 03/12/18 15:45 04/11/18 15:44 Polyethylene Glycol (Miralax) 17 gm DAILYPRN PRN ORAL Constipation 03/12/18 15:45 04/11/18 15:44 Pregabalin (Lyrica) 50 mg Q12HR ORAL 03/12/18 21:00 04/11/18 20:59 03/15/18 08:37 Spironolactone (Aldactone) 25 mg DAILY ORAL 03/13/18 09:00 04/12/18 08:59 03/15/18 08:36 Temazepam (Restoril) 15 mg HSPRN PRN ORAL Insomnia 03/12/18 21:00 03/19/18 20:59 Ida Nolen MD Mar 15, 2018 12:46
--- NOTE | 2018-03-15 14:43 | Cardiac Electrophysiology PN ---
Assessment/Plan Assessment/Plan 1. Exacerbation of congestive heart failure in a patient with severe cardiomyopathy. Continue Aldactone 25 mg daily,digoxin 0.125 mg daily, Coreg and lisinopril as well. Change Lasix to 40 mg po daily 2. Status post Biotronik biventricular defibrillator implantation. Re- interrogated and showed Nl Fx 3. Renal failure. Creatinine was 1.3 on admission 4. Troponin leak. Nonspecific. Second troponin is negative. 5. Metabolic encephalopathy and anxiety, improving under the management of Dr. Douglas. 6. History of cerebrovascular accident with right-sided paresis. 7. History of cervical cancer in 2016 status post surgery. 8. Chronic obstructive pulmonary disease. Subjective Subjective V paced in NAD. In NAD. Feeling weak Objective Last 24 Hour Vital Signs Date Time Temp Pulse Resp B/P (MAP) Pulse Ox O2 Delivery O2 Flow Rate FiO2 03/15/18 12:00 79 03/15/18 12:00 97.6 87 18 126/92 (103) 95 97.6 03/15/18 09:00 Nasal Cannula 2.0 03/15/18 08:45 123/60 03/15/18 08:44 92 123/60 03/15/18 08:44 92 03/15/18 08:16 Nasal Cannula 2.0 28 03/15/18 08:16 95 Nasal Cannula 2.0 28 03/15/18 08:16 90 18 Nasal Cannula 2.0 28 03/15/18 08:00 98.2 92 20 123/66 (85) 90 98.2 03/15/18 08:00 90 03/15/18 04:00 97.2 85 20 125/58 (80) 90 97.2 03/15/18 04:00 84 03/15/18 00:00 98.5 92 21 112/61 (78) 97 98.5 03/14/18 21:00 Nasal Cannula 2.0 03/14/18 20:58 99.1 97 20 116/59 (78) 95 99.1 03/14/18 20:19 94 126/61 03/14/18 20:00 96 03/14/18 19:55 Nasal Cannula 2.0 28 03/14/18 19:55 96 Nasal Cannula 2.0 28 03/14/18 19:54 94 18 Nasal Cannula 2.0 28 03/14/18 16:00 92 03/14/18 16:00 98.4 94 18 126/61 (82) 96 98.4 Intake and Output 03/14/18 03/15/18 19:00 07:00 Intake Total 480 ml Balance 480 ml Intake Oral 480 ml # Voids 4 # Bowel Movements 1 Laboratory Tests Test 03/15/18 06:35 White Blood Count 10.1 K/UL (4.8-10.8) Red Blood Count 4.55 M/UL (4.20-5.40) Hemoglobin 12.4 G/DL (12.0-16.0) Hematocrit 38.9 % (37.0-47.0) Mean Corpuscular Volume 86 FL (80-99) Mean Corpuscular Hemoglobin 27.2 PG (27.0-31.0) Mean Corpuscular Hemoglobin Concent 31.8 G/DL (32.0-36.0) L Red Cell Distribution Width 13.7 % (11.6-14.8) Platelet Count 234 K/UL (150-450) Mean Platelet Volume 9.9 FL (6.5-10.1) Neutrophils (%) (Auto) 67.1 % (45.0-75.0) Lymphocytes (%) (Auto) 17.7 % (20.0-45.0) L Monocytes (%) (Auto) 10.1 % (1.0-10.0) H Eosinophils (%) (Auto) 4.1 % (0.0-3.0) H Basophils (%) (Auto) 1.0 % (0.0-2.0) Sodium Level 140 MMOL/L (136-145) Potassium Level 3.8 MMOL/L (3.5-5.1) Chloride Level 102 MMOL/L (98-107) Carbon Dioxide Level 31 MMOL/L (21-32) Anion Gap 7 mmol/L (5-15) Blood Urea Nitrogen 29 mg/dL (7-18) H Creatinine 1.5 MG/DL (0.55-1.30) H Estimat Glomerular Filtration Rate mL/min (>60) Glucose Level 371 MG/DL (74-106) H Calcium Level 9.0 MG/DL (8.5-10.1) Total Bilirubin 0.4 MG/DL (0.2-1.0) Aspartate Amino Transf (AST/SGOT) 28 U/L (15-37) Alanine Aminotransferase (ALT/SGPT) 24 U/L (12-78) Alkaline Phosphatase 100 U/L (46-116) Pro-B-Type Natriuretic Peptide 591 pg/mL (0-125) H Total Protein 7.5 G/DL (6.4-8.2) Albumin 2.9 G/DL (3.4-5.0) L Globulin 4.6 g/dL Albumin/Globulin Ratio 0.6 (1.0-2.7) L Microbiology Date/Time Source Procedure Growth Status 03/12/18 21:10 Nasal Nares MRSA Culture - Final NO METHICILLIN RESISTANT STAPH AUREUS... Complete 03/12/18 21:10 Rectum - Final NO CARBAPENEM-RESISTANT ENTEROBACTERI... Complete 03/12/18 21:10 Rectum VRE Culture - Final NO VANCOMYCIN RESISTANT ENTEROCOCCUS ... Complete Objective HEAD AND NECK: Shows positive JVD. LUNGS: Bibasilar rales. CARDIOVASCULAR: Regular S1 and S2 with no gallop or murmur. Defibrillator is in the left subclavian. ABDOMEN: Soft. EXTREMITIES: A 2+ pitting edema. Remi Howard MD Mar 15, 2018 14:43
[2018-03-15 16:00] VITALS: BP 101/60
[2018-03-15] MEDS ORDERED: Furosemide 40mg tab ORAL SCH (16:00)
--- NOTE | 2018-03-15 19:43 | Internal Med Progress Note ---
Subjective Date of Service: Mar 15, 2018 Physician Name Ash Li Attending Physician Brendan Wright MD Current Medications Medications (Trade) Dose Ordered Sig/[place] Route PRN Reason Start Time Stop Time Status Last Admin Dose Admin Acetaminophen (Tylenol) 650 mg Q4H PRN ORAL Fever (temp>100.5F) 03/12/18 15:45 04/11/18 15:44 Albuterol/ Ipratropium (Albuterol/ Ipratropium) 3 ml Q4H PRN HHN Shortness of Breath 03/12/18 15:45 03/17/18 15:44 Carvedilol (Coreg) 3.125 mg EVERY 12 HOURS ORAL 03/14/18 21:00 04/13/18 20:59 03/15/18 08:44 Clopidogrel Bisulfate (Plavix) 75 mg DAILY ORAL 03/13/18 09:00 04/12/18 08:59 03/15/18 08:36 Dextrose (Dextrose 50%) 25 ml Q30M PRN IV Hypoglycemia 03/14/18 12:00 04/13/18 11:59 Dextrose (Dextrose 50%) 50 ml Q30M PRN IV Hypoglycemia 03/14/18 12:00 04/13/18 11:59 Digoxin (Lanoxin) 0.125 mg DAILY ORAL 03/13/18 09:00 04/12/18 08:59 03/15/18 08:44 Furosemide (Lasix) 40 mg DAILY ORAL 03/16/18 09:00 04/15/18 08:59 Gabapentin (Neurontin) 300 mg TID ORAL 03/12/18 20:00 04/11/18 19:59 03/15/18 17:07 Heparin Sodium (Porcine) (Heparin 5000 units/ml) 5,000 units EVERY 12 HOURS SUBQ 03/12/18 21:00 04/11/18 20:59 03/15/18 08:46 Insulin Aspart (NovoLOG) BEFORE MEALS AND HS SUBQ 03/14/18 12:16 04/13/18 12:15 03/15/18 17:08 Lisinopril (Zestril) 10 mg DAILY ORAL 03/15/18 09:00 04/14/18 08:59 03/15/18 08:45 Lorazepam (Ativan) 1 mg Q6H PRN ORAL For Anxiety 03/14/18 12:00 03/21/18 11:59 Ondansetron HCl (Zofran) 4 mg Q6H PRN IVP Nausea & Vomiting 03/12/18 15:45 04/11/18 15:44 Polyethylene Glycol (Miralax) 17 gm DAILYPRN PRN ORAL Constipation 03/12/18 15:45 04/11/18 15:44 Pregabalin (Lyrica) 50 mg Q12HR ORAL 03/12/18 21:00 04/11/18 20:59 03/15/18 08:37 Spironolactone (Aldactone) 25 mg DAILY ORAL 03/13/18 09:00 04/12/18 08:59 03/15/18 08:36 Temazepam (Restoril) 15 mg HSPRN PRN ORAL Insomnia 03/12/18 21:00 03/19/18 20:59 Allergies: Coded Allergies: No Known Allergies (Unverified , 12/18/16) ROS Limited/Unobtainable: No Constitutional: Reports: no symptoms HEENT: Reports: no symptoms Cardiovascular: Reports: no symptoms Respiratory: Reports: shortness of breath Gastrointestinal/Abdominal: Reports: no symptoms Genitourinary: Reports: no symptoms 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: Reports: no symptoms Subjective 73 YO F admitted with leg swelling and shortness of breath. Now CHF exacerbation. Cover for Int [place]-Dr Wright Objective Last Vital Signs Date Time Temp Pulse Resp B/P (MAP) Pulse Ox O2 Delivery O2 Flow Rate FiO2 03/15/18 16:00 76 03/15/18 16:00 97.8 18 101/60 (74) 95 97.8 03/15/18 09:00 Nasal Cannula 2.0 03/15/18 08:16 28 Laboratory Tests Test 03/15/18 06:35 White Blood Count 10.1 K/UL (4.8-10.8) Red Blood Count 4.55 M/UL (4.20-5.40) Hemoglobin 12.4 G/DL (12.0-16.0) Hematocrit 38.9 % (37.0-47.0) Mean Corpuscular Volume 86 FL (80-99) Mean Corpuscular Hemoglobin 27.2 PG (27.0-31.0) Mean Corpuscular Hemoglobin Concent 31.8 G/DL (32.0-36.0) L Red Cell Distribution Width 13.7 % (11.6-14.8) Platelet Count 234 K/UL (150-450) Mean Platelet Volume 9.9 FL (6.5-10.1) Neutrophils (%) (Auto) 67.1 % (45.0-75.0) Lymphocytes (%) (Auto) 17.7 % (20.0-45.0) L Monocytes (%) (Auto) 10.1 % (1.0-10.0) H Eosinophils (%) (Auto) 4.1 % (0.0-3.0) H Basophils (%) (Auto) 1.0 % (0.0-2.0) Sodium Level 140 MMOL/L (136-145) Potassium Level 3.8 MMOL/L (3.5-5.1) Chloride Level 102 MMOL/L (98-107) Carbon Dioxide Level 31 MMOL/L (21-32) Anion Gap 7 mmol/L (5-15) Blood Urea Nitrogen 29 mg/dL (7-18) H Creatinine 1.5 MG/DL (0.55-1.30) H Estimat Glomerular Filtration Rate mL/min (>60) Glucose Level 371 MG/DL (74-106) H Calcium Level 9.0 MG/DL (8.5-10.1) Total Bilirubin 0.4 MG/DL (0.2-1.0) Aspartate Amino Transf (AST/SGOT) 28 U/L (15-37) Alanine Aminotransferase (ALT/SGPT) 24 U/L (12-78) Alkaline Phosphatase 100 U/L (46-116) Pro-B-Type Natriuretic Peptide 591 pg/mL (0-125) H Total Protein 7.5 G/DL (6.4-8.2) Albumin 2.9 G/DL (3.4-5.0) L Globulin 4.6 g/dL Albumin/Globulin Ratio 0.6 (1.0-2.7) L Microbiology Date/Time Source Procedure Growth Status 03/12/18 21:10 Nasal Nares MRSA Culture - Final NO METHICILLIN RESISTANT STAPH AUREUS... Complete 03/12/18 21:10 Rectum - Final NO CARBAPENEM-RESISTANT ENTEROBACTERI... Complete 03/12/18 21:10 Rectum VRE Culture - Final NO VANCOMYCIN RESISTANT ENTEROCOCCUS ... Complete Intake and Output 03/14/18 03/15/18 19:00 07:00 Intake Total 480 ml Balance 480 ml Intake Oral 480 ml # Voids 4 # Bowel Movements 1 Objective PHYSICAL EXAMINATION: GENERAL: The patient is a well-developed and well-nourished female, in no apparent distress. HEENT: Eyes, pupils are equal and responsive to light and accommodation. Extraocular movements are intact. NECK: Supple. No lymphadenopathy. CHEST: Lungs are clear to auscultation bilaterally with crackles heard one-third of the way up bilaterally. CARDIOVASCULAR: Regular rhythm and rate. S1 and S2 are normal without murmurs, rubs, or gallops. ABDOMEN: Soft, nontender, and nondistended. Positive bowel sounds. No evidence of hepatosplenomegaly. Currently, no rebound or guarding noted. EXTREMITIES: 2+ pitting edema bilaterally. Otherwise without clubbing or cyanosis. RECTAL/GENITAL: Refused. NEUROLOGIC: Cranial nerves II through XII are grossly intact without focal deficits. Motor strength is 5/5 bilaterally. Deep tendon reflexes are 2+ plantar. Assessment/Plan Problem List: (1) HTN (hypertension) Assessment & Plan: Continue coreg, zestril and spirinolactone. (2) Cardiomyopathy Assessment & Plan: LVEF=25% (3) Dyspnea Assessment & Plan: Due to CHF. See cardiology note. (4) Edema (5) Acute CHF Assessment & Plan: Increase lasix-See cardiology note. (6) COPD (chronic obstructive pulmonary disease) (7) Diabetes mellitus (8) Cerebral vascular disease (9) Hemiparesis, right (10) EF 25% (11) AICD (automatic cardioverter/defibrillator) present (12) Left bundle branch block (LBBB) Assessment & Plan: S/P AICD Status: progressing Ash Li MD Mar 15, 2018 19:43
[2018-03-15 20:00] VITALS: BP 120/57
--- NOTE | 2018-03-15 22:45 | General Progress Note ---
Assessment/Plan Status: stable Assessment/Plan encephalopathy due to metabolic d/o Dementia chronic zyprexa 2.5mg prn ativan 1mg q 6hr/prn Subjective Date patient seen: Mar 15, 2018 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: Reports: anxiety, depressed, emotional problems Allergies: Coded Allergies: No Known Allergies (Unverified , 12/18/16) Subjective the pt has episodes of anxiety Objective Last 24 Hour Vital Signs Date Time Temp Pulse Resp B/P (MAP) Pulse Ox O2 Delivery O2 Flow Rate FiO2 03/15/18 22:03 69 120/57 03/15/18 20:01 96 Nasal Cannula 2.0 28 03/15/18 20:01 Nasal Cannula 2.0 28 03/15/18 20:00 76 20 Nasal Cannula 2.0 28 03/15/18 16:00 76 03/15/18 16:00 97.8 73 18 101/60 (74) 95 97.8 03/15/18 12:00 79 03/15/18 12:00 97.6 87 18 126/92 (103) 95 97.6 03/15/18 09:00 Nasal Cannula 2.0 03/15/18 08:45 123/60 03/15/18 08:44 92 123/60 03/15/18 08:44 92 03/15/18 08:16 Nasal Cannula 2.0 28 03/15/18 08:16 95 Nasal Cannula 2.0 28 03/15/18 08:16 90 18 Nasal Cannula 2.0 28 03/15/18 08:00 98.2 92 20 123/66 (85) 90 98.2 03/15/18 08:00 90 03/15/18 04:00 97.2 85 20 125/58 (80) 90 97.2 03/15/18 04:00 84 03/15/18 00:00 98.5 92 21 112/61 (78) 97 98.5 Intake and Output 03/14/18 03/15/18 19:00 07:00 Intake Total 480 ml Balance 480 ml Intake Oral 480 ml # Voids 4 # Bowel Movements 1 Laboratory Tests 03/15/18 06:35: White Blood Count 10.1, Red Blood Count 4.55, Hemoglobin 12.4, Hematocrit 38.9, Mean Corpuscular Volume 86, Mean Corpuscular Hemoglobin 27.2, Mean Corpuscular Hemoglobin Concent 31.8L, Red Cell Distribution Width 13.7, Platelet Count 234, Mean Platelet Volume 9.9, Neutrophils (%) (Auto) 67.1, Lymphocytes (%) (Auto) 17.7L, Monocytes (%) (Auto) 10.1H, Eosinophils (%) (Auto) 4.1H, Basophils (%) ( Auto) 1.0, Sodium Level 140, Potassium Level 3.8, Chloride Level 102, Carbon Dioxide Level 31, Anion Gap 7, Blood Urea Nitrogen 29H, Creatinine 1.5H, Estimat Glomerular Filtration Rate , Glucose Level 371H, Calcium Level 9.0, Total Bilirubin 0.4, Aspartate Amino Transf (AST/SGOT) 28, Alanine Aminotransferase (ALT/SGPT) 24, Alkaline Phosphatase 100, Pro-B-Type Natriuretic Peptide 591H, Total Protein 7.5, Albumin 2.9L, Globulin 4.6, Albumin /Globulin Ratio 0.6L Height (Feet): 5 Height (Inches): 1.00 Weight (Pounds): 162 General Appearance: no apparent distress, alert Neurologic: oriented x 3, responsive Teresa Douglas MD Mar 15, 2018 22:45
[2018-03-16] VITALS: BP 116/50
[2018-03-16 04:00] VITALS: BP 146/77
[2018-03-16] MEDS: NovoLOG Insulin Flexpen SUBQ SCH ×5 (07:04→20:55)
[2018-03-16 08:00] VITALS: BP 144/73
[2018-03-16 08:03] LABS: BASOPHILS % (AUTO) 0.9 % (0.0-2.0); EOSINOPHILS % (AUTO) 4.4 % (0.0-3.0); HEMOGLOBIN 12.3 G/DL (12.0-16.0); LYMPHOCYTES % (AUTO) 14.8 % (20.0-45.0); MEAN CORPUSCULAR VOLUME 86 FL (80-99); MONOCYTES % (AUTO) 6.7 % (1.0-10.0); NEUTROPHILS % (AUTO) 73.2 % (45.0-75.0); PLATELET COUNT 204 K/UL (150-450); RED BLOOD COUNT 4.65 M/UL (4.20-5.40)
[2018-03-16 08:09] LABS: ANION GAP 8 mmol/L (5-15); BLOOD UREA NITROGEN 40 mg/dL (7-18); CALCIUM 8.6 MG/DL (8.5-10.1); CARBON DIOXIDE 28 MMOL/L (21-32); CHLORIDE 102 MMOL/L (98-107); CREATININE 1.8 MG/DL (0.55-1.30); POTASSIUM 4.3 MMOL/L (3.5-5.1); SODIUM 138 MMOL/L (136-145)
--- NOTE | 2018-03-16 08:57 | Cardiac Electrophysiology PN ---
Assessment/Plan Assessment/Plan 1. Exacerbation of congestive heart failure in a patient with severe cardiomyopathy. Continue Aldactone 25 mg daily,digoxin 0.125 mg daily, Coreg, lisinopril and Lasix 40 mg po daily 2. Status post Biotronik biventricular defibrillator implantation. Re- interrogated and showed Nl Fx 3. Renal failure. Creatinine was 1.3 on admission 4. Troponin leak. Nonspecific. Second troponin is negative. 5. Metabolic encephalopathy and anxiety, improving under the management of Dr. Douglas. 6. History of cerebrovascular accident with right-sided paresis. 7. History of cervical cancer in 2016 status post surgery. 8. Chronic obstructive pulmonary disease. DW RN Subjective Subjective V paced in NAD. In NAD. No CP or SOB Objective Last 24 Hour Vital Signs Date Time Temp Pulse Resp B/P (MAP) Pulse Ox O2 Delivery O2 Flow Rate FiO2 03/16/18 04:00 97.3 63 20 146/77 (100) 99 97.3 03/16/18 04:00 78 03/16/18 00:00 76 03/16/18 00:00 98.0 77 20 116/50 (72) 97 98.0 03/15/18 22:03 69 120/57 03/15/18 21:00 Nasal Cannula 2.0 03/15/18 20:01 96 Nasal Cannula 2.0 28 03/15/18 20:01 Nasal Cannula 2.0 28 03/15/18 20:00 98.1 69 20 120/57 (78) 95 98.1 03/15/18 20:00 76 20 Nasal Cannula 2.0 28 03/15/18 20:00 79 03/15/18 16:00 76 03/15/18 16:00 97.8 73 18 101/60 (74) 95 97.8 03/15/18 12:00 79 03/15/18 12:00 97.6 87 18 126/92 (103) 95 97.6 03/15/18 09:00 Nasal Cannula 2.0 Intake and Output 03/15/18 03/16/18 19:00 07:00 Intake Total 700 ml Output Total 75 ml Balance 700 ml -75 ml Intake Oral 700 ml Output Urine Total 75 ml # Voids 5 # Bowel Movements 1 Laboratory Tests Test 03/16/18 07:20 White Blood Count 12.0 K/UL (4.8-10.8) H Red Blood Count 4.65 M/UL (4.20-5.40) Hemoglobin 12.3 G/DL (12.0-16.0) Hematocrit 40.0 % (37.0-47.0) Mean Corpuscular Volume 86 FL (80-99) Mean Corpuscular Hemoglobin 26.4 PG (27.0-31.0) L Mean Corpuscular Hemoglobin Concent 30.7 G/DL (32.0-36.0) L Red Cell Distribution Width 14.0 % (11.6-14.8) Platelet Count 204 K/UL (150-450) Mean Platelet Volume 9.3 FL (6.5-10.1) Neutrophils (%) (Auto) 73.2 % (45.0-75.0) Lymphocytes (%) (Auto) 14.8 % (20.0-45.0) L Monocytes (%) (Auto) 6.7 % (1.0-10.0) Eosinophils (%) (Auto) 4.4 % (0.0-3.0) H Basophils (%) (Auto) 0.9 % (0.0-2.0) Sodium Level 138 MMOL/L (136-145) Potassium Level 4.3 MMOL/L (3.5-5.1) Chloride Level 102 MMOL/L (98-107) Carbon Dioxide Level 28 MMOL/L (21-32) Anion Gap 8 mmol/L (5-15) Blood Urea Nitrogen 40 mg/dL (7-18) H Creatinine 1.8 MG/DL (0.55-1.30) H Estimat Glomerular Filtration Rate mL/min (>60) Glucose Level 317 MG/DL (74-106) H Calcium Level 8.6 MG/DL (8.5-10.1) Objective HEAD AND NECK: Mild JVD. LUNGS: Bibasilar rales. CARDIOVASCULAR: Regular S1 and S2 with no gallop or murmur. Defibrillator is in the left subclavian. ABDOMEN: Soft. EXTREMITIES: 1+ pitting edema. Remi Howard MD Mar 16, 2018 08:57
[2018-03-16] MEDS: Digoxin 0.125mg tab ORAL SCH (09:31)
[2018-03-16] MEDS: Lisinopril 10mg tab ORAL SCH (09:31)
[2018-03-16] MEDS: Furosemide 40mg tab ORAL SCH (09:32)
[2018-03-16] MEDS: Spironolactone 25mg tab ORAL SCH (09:32)
[2018-03-16] MEDS: Heparin 5000 units/ml inj SUBQ SCH ×2 (09:33→20:56)
[2018-03-16] MEDS: Lyrica 50mg cap ORAL SCH ×2 (09:33→20:53)
[2018-03-16] MEDS: Norco 5mg/325mg tab ORAL PRN ×2 (11:40→20:53)
[2018-03-16 11:59] LABS: CREATINE KINASE 74 U/L (26-308)
[2018-03-16 12:00] VITALS: BP 139/72
--- NOTE | 2018-03-16 15:57 | Internal Med Progress Note ---
Subjective Physician Name Brendan Wright Attending Physician Brendan Wright MD Current Medications Medications (Trade) Dose Ordered Sig/[place] Route PRN Reason Start Time Stop Time Status Last Admin Dose Admin Acetaminophen (Tylenol) 650 mg Q4H PRN ORAL Fever (temp>100.5F) 03/12/18 15:45 04/11/18 15:44 Acetaminophen/ Hydrocodone Bitart ([place] 5/325) 1 tab Q6H PRN ORAL For Pain 03/16/18 11:30 03/23/18 11:29 03/16/18 11:40 Albuterol/ Ipratropium (Albuterol/ Ipratropium) 3 ml Q4H PRN HHN Shortness of Breath 03/12/18 15:45 03/17/18 15:44 Carvedilol (Coreg) 3.125 mg EVERY 12 HOURS ORAL 03/14/18 21:00 04/13/18 20:59 03/16/18 09:32 Clopidogrel Bisulfate (Plavix) 75 mg DAILY ORAL 03/13/18 09:00 04/12/18 08:59 03/16/18 09:31 Dextrose (Dextrose 50%) 25 ml Q30M PRN IV Hypoglycemia 03/14/18 12:00 04/13/18 11:59 Dextrose (Dextrose 50%) 50 ml Q30M PRN IV Hypoglycemia 03/14/18 12:00 04/13/18 11:59 Digoxin (Lanoxin) 0.125 mg DAILY ORAL 03/13/18 09:00 04/12/18 08:59 03/16/18 09:31 Furosemide (Lasix) 40 mg DAILY ORAL 03/16/18 09:00 04/15/18 08:59 03/16/18 09:32 Gabapentin (Neurontin) 300 mg TID ORAL 03/12/18 20:00 04/11/18 19:59 03/16/18 12:41 Heparin Sodium (Porcine) (Heparin 5000 units/ml) 5,000 units EVERY 12 HOURS SUBQ 03/12/18 21:00 04/11/18 20:59 03/16/18 09:33 Insulin Aspart (NovoLOG) BEFORE MEALS AND HS SUBQ 03/14/18 12:16 04/13/18 12:15 03/16/18 11:43 Lisinopril (Zestril) 10 mg DAILY ORAL 03/15/18 09:00 04/14/18 08:59 03/16/18 09:31 Lorazepam (Ativan) 1 mg Q6H PRN ORAL For Anxiety 03/14/18 12:00 03/21/18 11:59 Ondansetron HCl (Zofran) 4 mg Q6H PRN IVP Nausea & Vomiting 03/12/18 15:45 04/11/18 15:44 Polyethylene Glycol (Miralax) 17 gm DAILYPRN PRN ORAL Constipation 03/12/18 15:45 04/11/18 15:44 Pregabalin (Lyrica) 50 mg Q12HR ORAL 03/12/18 21:00 04/11/18 20:59 03/16/18 09:33 Spironolactone (Aldactone) 25 mg DAILY ORAL 03/13/18 09:00 04/12/18 08:59 03/16/18 09:32 Temazepam (Restoril) 15 mg HSPRN PRN ORAL Insomnia 03/12/18 21:00 03/19/18 20:59 Allergies: Coded Allergies: No Known Allergies (Unverified , 12/18/16) Subjective awake, responsive, NAD, Less SOB, C/O Right leg pain Objective Last Vital Signs Date Time Temp Pulse Resp B/P (MAP) Pulse Ox O2 Delivery O2 Flow Rate FiO2 03/16/18 12:00 97.4 68 20 139/72 (94) 97 97.4 03/16/18 09:00 Nasal Cannula 2.0 03/15/18 20:01 28 Laboratory Tests Test 03/16/18 07:20 White Blood Count 12.0 K/UL (4.8-10.8) H Red Blood Count 4.65 M/UL (4.20-5.40) Hemoglobin 12.3 G/DL (12.0-16.0) Hematocrit 40.0 % (37.0-47.0) Mean Corpuscular Volume 86 FL (80-99) Mean Corpuscular Hemoglobin 26.4 PG (27.0-31.0) L Mean Corpuscular Hemoglobin Concent 30.7 G/DL (32.0-36.0) L Red Cell Distribution Width 14.0 % (11.6-14.8) Platelet Count 204 K/UL (150-450) Mean Platelet Volume 9.3 FL (6.5-10.1) Neutrophils (%) (Auto) 73.2 % (45.0-75.0) Lymphocytes (%) (Auto) 14.8 % (20.0-45.0) L Monocytes (%) (Auto) 6.7 % (1.0-10.0) Eosinophils (%) (Auto) 4.4 % (0.0-3.0) H Basophils (%) (Auto) 0.9 % (0.0-2.0) Sodium Level 138 MMOL/L (136-145) Potassium Level 4.3 MMOL/L (3.5-5.1) Chloride Level 102 MMOL/L (98-107) Carbon Dioxide Level 28 MMOL/L (21-32) Anion Gap 8 mmol/L (5-15) Blood Urea Nitrogen 40 mg/dL (7-18) H Creatinine 1.8 MG/DL (0.55-1.30) H Estimat Glomerular Filtration Rate mL/min (>60) Glucose Level 317 MG/DL (74-106) H Uric Acid 11.1 MG/DL (2.6-7.2) H Calcium Level 8.6 MG/DL (8.5-10.1) Total Creatine Kinase 74 U/L (26-308) Intake and Output 03/15/18 03/16/18 19:00 07:00 Intake Total 700 ml Output Total 75 ml Balance 700 ml -75 ml Intake Oral 700 ml Output Urine Total 75 ml # Voids 5 # Bowel Movements 1 Objective General: No acute distress, awake and alert HEENT: NCAT, sclera anicteric, PERRL, EOMI. Neck: Supple, no significant jugular venous distention, Lungs: fair inspiratory effort, clear to auscultation bilaterally, no Wheeze or Rales. Heart: Regular rate and rhythm, normal S1/S2, no murmurs, Left AICD Abdomen: soft, nontender, nondistended. Normoactive bowel sounds. / Rectal: Refused and deferred. Extremities: No Cyanosis , clubbing +2 LE's edema. Neuro: A&O x 3, Able to move all extremities Right side weakness Skin: warm, no rashes or lesions Psych: Normal mood and affect Assessment/Plan Assessment/Plan (1) Acute on chronic CHF with Diastolic dysfunction (2) COPD (chronic obstructive pulmonary disease) (3) AICD (automatic cardioverter/defibrillator) present (4) EF 25% (5) CAD (coronary artery disease) (6) Hemiparesis, right (7) Diabetes mellitus (8) Right hip pain Assessment/Plan improving X ray of Right Hip respiratory treatment sliding scale diabetic diet dc planning for home in Brendan Wright MD Mar 16, 2018 15:57
[2018-03-16 16:00] VITALS: BP 113/48
--- NOTE | 2018-03-16 17:33 | Diagnostic Imaging Report ---
Indication: Pain and numbness Technique: 2 views of the right hip Comparison: none Findings: Exam is limited by body habitus. No acute fractures. No dislocations. The joint spaces are preserved. The bones are demineralized Impression: Negative Note, however that in elderly osteoporotic patients, nondisplaced hip and pelvic fractures can easily be occult. Consider cross-sectional imaging if there is high clinical suspicion
[2018-03-16 18:07] LABS: APPEARANCE,URINE TURBID; BILIRUBIN, URINE NEGATIVE (NEGATIVE); COLOR,URINE AMBER; GLUCOSE, URINE (UA) NEGATIVE (NEGATIVE); KETONES,URINE 1+ (NEGATIVE); LEUKOCYTE ESTERASE ,URINE 3+ (NEGATIVE); NITRITE,URINE NEGATIVE (NEGATIVE); PH,URINE 6 (4.5-8.0); PROTEIN,URINE 2+ (NEGATIVE); UROBILINOGEN,URINE NORMAL MG/DL (0.0-1.0)
[2018-03-16 20:00] VITALS: BP 115/54
--- NOTE | 2018-03-16 23:17 | General Progress Note ---
Assessment/Plan Status: stable, progressing Assessment/Plan encephalopathy due to metabolic d/o Dementia chronic zyprexa 2.5mg prn ativan 1mg q 6hr/prn Subjective Date patient seen: Mar 16, 2018 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: Reports: anxiety, depressed, emotional problems Allergies: Coded Allergies: No Known Allergies (Unverified , 12/18/16) Subjective the pt has episodes of anxiety Objective Last 24 Hour Vital Signs Date Time Temp Pulse Resp B/P (MAP) Pulse Ox O2 Delivery O2 Flow Rate FiO2 03/16/18 20:59 96 Nasal Cannula 2.0 28 03/16/18 20:59 Nasal Cannula 2.0 28 03/16/18 20:56 78 20 Nasal Cannula 2.0 28 03/16/18 20:52 73 115/54 03/16/18 20:00 97.3 73 20 115/54 (74) 96 97.3 03/16/18 16:00 97.4 92 18 113/48 (69) 100 97.4 03/16/18 16:00 74 03/16/18 12:00 78 03/16/18 12:00 97.4 68 20 139/72 (94) 97 97.4 03/16/18 09:32 66 144/73 03/16/18 09:31 144/73 03/16/18 09:31 66 03/16/18 09:00 Nasal Cannula 2.0 03/16/18 08:24 94 Room Air 21 03/16/18 08:24 Room Air 21 03/16/18 08:24 80 20 Room Air 28 03/16/18 08:00 97.5 66 21 144/73 (96) 98 97.5 03/16/18 08:00 82 03/16/18 04:00 97.3 63 20 146/77 (100) 99 97.3 03/16/18 04:00 78 03/16/18 00:00 76 03/16/18 00:00 98.0 77 20 116/50 (72) 97 98.0 Intake and Output 03/15/18 03/16/18 19:00 07:00 Intake Total 700 ml Output Total 75 ml Balance 700 ml -75 ml Intake Oral 700 ml Output Urine Total 75 ml # Voids 5 # Bowel Movements 1 Laboratory Tests 03/16/18 07:20: White Blood Count 12.0H, Red Blood Count 4.65, Hemoglobin 12.3, Hematocrit 40.0 , Mean Corpuscular Volume 86, Mean Corpuscular Hemoglobin 26.4L, Mean Corpuscular Hemoglobin Concent 30.7L, Red Cell Distribution Width 14.0, Platelet Count 204, Mean Platelet Volume 9.3, Neutrophils (%) (Auto) 73.2, Lymphocytes (%) (Auto) 14.8L, Monocytes (%) (Auto) 6.7, Eosinophils (%) (Auto) 4.4H, Basophils (%) (Auto) 0.9, Sodium Level 138, Potassium Level 4.3, Chloride Level 102, Carbon Dioxide Level 28, Anion Gap 8, Blood Urea Nitrogen 40H, Creatinine 1.8H, Estimat Glomerular Filtration Rate , Glucose Level 317H, Uric Acid 11.1H, Calcium Level 8.6, Total Creatine Kinase 74 03/16/18 14:00: Urine Color Kaur, Urine Appearance Turbid, Urine pH 6, Urine Specific [place] 1.015, Urine Protein 2+H, Urine Glucose (UA) Negative, Urine Ketones 1+H, Urine Blood 3+H, Urine Nitrite Negative, Urine Bilirubin Negative, Urine Ictotest Negative, Urine Urobilinogen Normal, Urine Leukocyte Esterase 3+H, Urine RBC 10- 15H, Urine WBC TntcH, Urine Squamous Epithelial Cells ModerateH, Urine Bacteria ManyH, Urine Eosinophils Few, Urine Random Sodium 36, Urine Potassium Timed 30 Height (Feet): 5 Height (Inches): 1.00 Weight (Pounds): 162 General Appearance: no apparent distress, alert Neurologic: oriented x 3, responsive, depressed affect Teresa Douglas MD Mar 16, 2018 23:17
[2018-03-17] VITALS (7 sets, daily range): BP systolic 99–146; BP diastolic 41–104
[2018-03-17] MEDS: NovoLOG Insulin Flexpen SUBQ SCH ×4 (06:32→20:31)
[2018-03-17] MEDS: Lisinopril 10mg tab ORAL SCH (09:00)
[2018-03-17] MEDS: Lyrica 50mg cap ORAL SCH ×2 (09:16→20:33)
[2018-03-17] MEDS: Furosemide 40mg tab ORAL SCH (09:16)
[2018-03-17] MEDS: Spironolactone 25mg tab ORAL SCH (09:16)
[2018-03-17] MEDS: Digoxin 0.125mg tab ORAL SCH (09:21)
[2018-03-17] MEDS: Heparin 5000 units/ml inj SUBQ SCH ×2 (09:23→20:33)
--- NOTE | 2018-03-17 09:53 | Consultation ---
Consult Note Consult Note asked to eval for rising Cr 1.3 to 1.8 Patient is a 73-year-old female who presented after increased lower extremity discomfort and swelling. Patient gradual onset of symptoms since yesterday. Patient was having additional shortness of breath. Patient prior history of arthritis. She denies any prior history of renal disease. She was noted to have increased difficulty breathing as well as difficulty lying flat.She presented increased bilateral lower extremity pain. Allergies: Coded Allergies: No Known Allergies (Unverified , 12/18/16) examined- data reviewed Assessment/Plan Acute renal failure, multifactorial due to below in red: (1) Acute on chronic CHF with Diastolic dysfunction (2) COPD (chronic obstructive pulmonary disease) (3) AICD (automatic cardioverter/defibrillator) present (4) EF 25% (5) CAD (coronary artery disease) (6) Hemiparesis, right (7) Diabetes mellitus (8) Right hip pain Plan: Hold Lasix adjust BP meds Monitor renal parameters per orders Bill Mcdonald MD Mar 17, 2018 09:52
[2018-03-17] MEDS: Levemir Flexpen SUBQ SCH (10:15)
--- NOTE | 2018-03-17 11:18 | Pulmonology Progress Note ---
Assessment/Plan Problems: (1) Acute CHF (2) COPD (chronic obstructive pulmonary disease) (3) AICD (automatic cardioverter/defibrillator) present (4) EF 25% (5) CAD (coronary artery disease) (6) Hemiparesis, right (7) Diabetes mellitus Assessment/Plan renal function stable improving cxr is clear hold lasix dose respiratory treatment sliding scale diabetic diet f/u by nephrology Subjective ROS Limited/Unobtainable: No Interval Events: late note march 16 raj new complains Allergies: Coded Allergies: No Known Allergies (Unverified , 12/18/16) Objective Last 24 Hour Vital Signs Date Time Temp Pulse Resp B/P (MAP) Pulse Ox O2 Delivery O2 Flow Rate FiO2 03/17/18 09:21 76 03/17/18 09:17 99/45 (63) 76 03/17/18 09:00 Nasal Cannula 2.0 03/17/18 09:00 99/45 03/17/18 09:00 76 99/45 03/17/18 08:57 Room Air 21 03/17/18 08:57 86 20 Room Air 28 03/17/18 08:57 96 Room Air 21 03/17/18 08:00 97.0 81 18 103/42 (62) 95 97.0 03/17/18 07:53 87 03/17/18 04:00 97.7 73 20 146/104 (118) 97 97.7 03/17/18 04:00 77 03/17/18 00:00 97.0 74 24 111/45 (67) 94 97.0 03/17/18 00:00 71 03/16/18 21:00 Nasal Cannula 2.0 03/16/18 20:59 96 Nasal Cannula 2.0 28 03/16/18 20:59 Nasal Cannula 2.0 28 03/16/18 20:56 78 20 Nasal Cannula 2.0 28 03/16/18 20:52 73 115/54 03/16/18 20:00 97.3 73 20 115/54 (74) 96 97.3 03/16/18 20:00 70 03/16/18 16:00 97.4 92 18 113/48 (69) 100 97.4 03/16/18 16:00 74 03/16/18 12:00 78 03/16/18 12:00 97.4 68 20 139/72 (94 97 97.4 Intake and Output 03/16/18 03/17/18 19:00 07:00 Intake Total 1600 ml Balance 1600 ml Intake Oral 1600 ml # Voids 6 3 # Bowel Movements 1 General Appearance: WD/WN HEENT: normocephalic, anicteric Respiratory/Chest: chest wall non-tender, lungs clear Cardiovascular: normal peripheral pulses, normal rate Abdomen: normal bowel sounds, soft, non tender Genitourinary: normal external genitalia Extremities: no clubbing Skin: no rash Laboratory Tests 03/16/18 14:00: Urine Color Kaur, Urine Appearance Turbid, Urine pH 6, Urine Specific [place] 1.015, Urine Protein 2+H, Urine Glucose (UA) Negative, Urine Ketones 1+H, Urine Blood 3+H, Urine Nitrite Negative, Urine Bilirubin Negative, Urine Ictotest Negative, Urine Urobilinogen Normal, Urine Leukocyte Esterase 3+H, Urine RBC 10- 15H, Urine WBC TntcH, Urine Squamous Epithelial Cells ModerateH, Urine Bacteria ManyH, Urine Eosinophils Few, Urine Random Sodium 36, Urine Potassium Timed 30 03/17/18 06:55: C-Reactive Protein, Quantitative 3.2H, Digoxin Level 1.5 Current Medications Medications (Trade) Dose Ordered Sig/[place] Route PRN Reason Start Time Stop Time Status Last Admin Dose Admin Acetaminophen (Tylenol) 650 mg Q4H PRN ORAL Fever (temp>100.5F) 03/12/18 15:45 04/11/18 15:44 Acetaminophen/ Hydrocodone Bitart ([place] 5/325) 1 tab Q6H PRN ORAL For Pain 03/16/18 11:30 03/23/18 11:29 03/16/18 20:53 Albuterol/ Ipratropium (Albuterol/ Ipratropium) 3 ml Q4H PRN HHN Shortness of Breath 03/12/18 15:45 03/17/18 15:44 Carvedilol (Coreg) 3.125 mg EVERY 12 HOURS ORAL 03/14/18 21:00 04/13/18 20:59 03/16/18 20:52 Clopidogrel Bisulfate (Plavix) 75 mg DAILY ORAL 03/13/18 09:00 04/12/18 08:59 03/17/18 09:15 Dextrose (Dextrose 50%) 25 ml Q30M PRN IV Hypoglycemia 03/14/18 12:00 04/13/18 11:59 Dextrose (Dextrose 50%) 50 ml Q30M PRN IV Hypoglycemia 03/14/18 12:00 04/13/18 11:59 Digoxin (Lanoxin) 0.125 mg DAILY ORAL 03/13/18 09:00 04/12/18 08:59 03/17/18 09:21 Gabapentin (Neurontin) 300 mg TID ORAL 03/12/18 20:00 04/11/18 19:59 03/17/18 09:16 Heparin Sodium (Porcine) (Heparin 5000 units/ml) 5,000 units EVERY 12 HOURS SUBQ 03/12/18 21:00 04/11/18 20:59 03/17/18 09:23 Insulin Aspart (NovoLOG) BEFORE MEALS AND HS SUBQ 03/14/18 12:16 04/13/18 12:15 03/17/18 06:32 Insulin Detemir (Levemir) 60 units DAILY SUBQ 03/17/18 09:00 04/16/18 08:59 03/17/18 10:15 Lisinopril (Zestril) 2.5 mg DAILY ORAL 03/18/18 09:00 04/14/18 08:59 Lorazepam (Ativan) 1 mg Q6H PRN ORAL For Anxiety 03/14/18 12:00 03/21/18 11:59 Ondansetron HCl (Zofran) 4 mg Q6H PRN IVP Nausea & Vomiting 03/12/18 15:45 04/11/18 15:44 Pantoprazole (Protonix) 40 mg DAILY ORAL 03/17/18 11:30 04/16/18 11:29 Polyethylene Glycol (Miralax) 17 gm DAILYPRN PRN ORAL Constipation 03/12/18 15:45 04/11/18 15:44 Pregabalin (Lyrica) 50 mg Q12HR ORAL 03/12/18 21:00 04/11/18 20:59 03/17/18 09:16 Spironolactone (Aldactone) 25 mg DAILY ORAL 03/13/18 09:00 04/12/18 08:59 03/17/18 09:16 Temazepam (Restoril) 15 mg HSPRN PRN ORAL Insomnia 03/12/18 21:00 03/19/18 20:59 Ida Nolen MD Mar 17, 2018 11:18
--- NOTE | 2018-03-17 11:19 | Pulmonology Progress Note ---
Assessment/Plan Problems: (1) Acute CHF (2) COPD (chronic obstructive pulmonary disease) (3) AICD (automatic cardioverter/defibrillator) present (4) EF 25% (5) CAD (coronary artery disease) (6) Hemiparesis, right (7) Diabetes mellitus Assessment/Plan renal function stable improving cxr is clear hold lasix dose respiratory treatment sliding scale diabetic diet f/u labs, f/u by nephrology once renal function is stable, pt can go home Subjective ROS Limited/Unobtainable: No Interval Events: no new events Allergies: Coded Allergies: No Known Allergies (Unverified , 12/18/16) Objective Last 24 Hour Vital Signs Date Time Temp Pulse Resp B/P (MAP) Pulse Ox O2 Delivery O2 Flow Rate FiO2 03/17/18 09:21 76 03/17/18 09:17 99/45 (63) 76 03/17/18 09:00 Nasal Cannula 2.0 03/17/18 09:00 99/45 03/17/18 09:00 76 99/45 03/17/18 08:57 Room Air 21 03/17/18 08:57 86 20 Room Air 28 03/17/18 08:57 96 Room Air 21 03/17/18 08:00 97.0 81 18 103/42 (62) 95 97.0 03/17/18 07:53 87 03/17/18 04:00 97.7 73 20 146/104 (118) 97 97.7 03/17/18 04:00 77 03/17/18 00:00 97.0 74 24 111/45 (67) 94 97.0 03/17/18 00:00 71 03/16/18 21:00 Nasal Cannula 2.0 03/16/18 20:59 96 Nasal Cannula 2.0 28 03/16/18 20:59 Nasal Cannula 2.0 28 03/16/18 20:56 78 20 Nasal Cannula 2.0 28 03/16/18 20:52 73 115/54 03/16/18 20:00 97.3 73 20 115/54 (74) 96 97.3 03/16/18 20:00 70 03/16/18 16:00 97.4 92 18 113/48 (69) 100 97.4 03/16/18 16:00 74 03/16/18 12:00 78 03/16/18 12:00 97.4 68 20 139/72 (94 97 97.4 Intake and Output 03/16/18 03/17/18 19:00 07:00 Intake Total 1600 ml Balance 1600 ml Intake Oral 1600 ml # Voids 6 3 # Bowel Movements 1 General Appearance: WD/WN HEENT: normocephalic, atraumatic Respiratory/Chest: chest wall non-tender, lungs clear Breasts: no masses Cardiovascular: normal peripheral pulses Abdomen: normal bowel sounds, soft, non tender Genitourinary: normal external genitalia Extremities: no cyanosis Skin: no lesions 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 Laboratory Tests 03/16/18 14:00: Urine Color Kaur, Urine Appearance Turbid, Urine pH 6, Urine Specific [place] 1.015, Urine Protein 2+H, Urine Glucose (UA) Negative, Urine Ketones 1+H, Urine Blood 3+H, Urine Nitrite Negative, Urine Bilirubin Negative, Urine Ictotest Negative, Urine Urobilinogen Normal, Urine Leukocyte Esterase 3+H, Urine RBC 10- 15H, Urine WBC TntcH, Urine Squamous Epithelial Cells ModerateH, Urine Bacteria ManyH, Urine Eosinophils Few, Urine Random Sodium 36, Urine Potassium Timed 30 03/17/18 06:55: C-Reactive Protein, Quantitative 3.2H, Digoxin Level 1.5 Current Medications Medications (Trade) Dose Ordered Sig/[place] Route PRN Reason Start Time Stop Time Status Last Admin Dose Admin Acetaminophen (Tylenol) 650 mg Q4H PRN ORAL Fever (temp>100.5F) 03/12/18 15:45 04/11/18 15:44 Acetaminophen/ Hydrocodone Bitart ([place] 5/325) 1 tab Q6H PRN ORAL For Pain 03/16/18 11:30 03/23/18 11:29 03/16/18 20:53 Albuterol/ Ipratropium (Albuterol/ Ipratropium) 3 ml Q4H PRN HHN Shortness of Breath 03/12/18 15:45 03/17/18 15:44 Carvedilol (Coreg) 3.125 mg EVERY 12 HOURS ORAL 03/14/18 21:00 04/13/18 20:59 03/16/18 20:52 Clopidogrel Bisulfate (Plavix) 75 mg DAILY ORAL 03/13/18 09:00 04/12/18 08:59 03/17/18 09:15 Dextrose (Dextrose 50%) 25 ml Q30M PRN IV Hypoglycemia 03/14/18 12:00 04/13/18 11:59 Dextrose (Dextrose 50%) 50 ml Q30M PRN IV Hypoglycemia 03/14/18 12:00 04/13/18 11:59 Digoxin (Lanoxin) 0.125 mg DAILY ORAL 03/13/18 09:00 04/12/18 08:59 03/17/18 09:21 Gabapentin (Neurontin) 300 mg TID ORAL 03/12/18 20:00 04/11/18 19:59 03/17/18 09:16 Heparin Sodium (Porcine) (Heparin 5000 units/ml) 5,000 units EVERY 12 HOURS SUBQ 03/12/18 21:00 04/11/18 20:59 03/17/18 09:23 Insulin Aspart (NovoLOG) BEFORE MEALS AND HS SUBQ 03/14/18 12:16 04/13/18 12:15 03/17/18 06:32 Insulin Detemir (Levemir) 60 units DAILY SUBQ 03/17/18 09:00 04/16/18 08:59 03/17/18 10:15 Lisinopril (Zestril) 2.5 mg DAILY ORAL 03/18/18 09:00 04/14/18 08:59 Lorazepam (Ativan) 1 mg Q6H PRN ORAL For Anxiety 03/14/18 12:00 03/21/18 11:59 Ondansetron HCl (Zofran) 4 mg Q6H PRN IVP Nausea & Vomiting 03/12/18 15:45 04/11/18 15:44 Pantoprazole (Protonix) 40 mg DAILY ORAL 03/17/18 11:30 04/16/18 11:29 Polyethylene Glycol (Miralax) 17 gm DAILYPRN PRN ORAL Constipation 03/12/18 15:45 04/11/18 15:44 Pregabalin (Lyrica) 50 mg Q12HR ORAL 03/12/18 21:00 04/11/18 20:59 03/17/18 09:16 Spironolactone (Aldactone) 25 mg DAILY ORAL 03/13/18 09:00 04/12/18 08:59 10/6/18 09:16 Temazepam (Restoril) 15 mg HSPRN PRN ORAL Insomnia 03/12/18 21:00 03/19/18 20:59 Ida Nolen MD Mar 17, 2018 11:19
--- NOTE | 2018-03-17 16:40 | Cardiac Electrophysiology PN ---
Assessment/Plan Assessment/Plan 1. Exacerbation of congestive heart failure in a patient with severe cardiomyopathy. Continue Aldactone 25 mg daily,digoxin 0.125 mg daily, Coreg, lisinopril and Lasix 2. Status post Biotronik biventricular defibrillator implantation. Re- interrogated and showed Nl Fx 3. Renal failure. Creatinine was 1.3 on admission 4. Troponin leak. Nonspecific. Second troponin is negative. 5. Metabolic encephalopathy and anxiety, improving under the management of Dr. Douglas. 6. History of cerebrovascular accident with right-sided paresis. 7. History of cervical cancer in 2016 status post surgery. 8. Chronic obstructive pulmonary disease. MADISON RN Subjective Subjective In NAD. No CP or SOB Objective Last 24 Hour Vital Signs Date Time Temp Pulse Resp B/P (MAP) Pulse Ox O2 Delivery O2 Flow Rate FiO2 03/17/18 15:37 98.2 18 104/58 (73) 82 98.2 03/17/18 12:00 97.5 20 99/53 (68) 83 97.5 03/17/18 12:00 87 03/17/18 09:21 76 03/17/18 09:17 99/45 (63) 76 03/17/18 09:00 Nasal Cannula 2.0 03/17/18 09:00 99/45 03/17/18 09:00 76 99/45 03/17/18 08:57 Room Air 21 03/17/18 08:57 86 20 Room Air 28 03/17/18 08:57 96 Room Air 21 03/17/18 08:00 97.0 81 18 103/42 (62) 95 97.0 03/17/18 07:53 87 03/17/18 04:00 97.7 73 20 146/104 (118) 97 97.7 03/17/18 04:00 77 03/17/18 00:00 97.0 74 24 111/45 (67) 94 97.0 03/17/18 00:00 71 03/16/18 21:00 Nasal Cannula 2.0 03/16/18 20:59 96 Nasal Cannula 2.0 28 03/16/18 20:59 Nasal Cannula 2.0 28 03/16/18 20:56 78 20 Nasal Cannula 2.0 28 03/16/18 20:52 73 115/54 03/16/18 20:00 97.3 73 20 115/54 (74) 96 97.3 03/16/18 20:00 70 Intake and Output 03/16/18 03/17/18 19:00 07:00 Intake Total 1600 ml Balance 1600 ml Intake Oral 1600 ml # Voids 6 3 # Bowel Movements 1 Laboratory Tests Test 03/17/18 06:55 C-Reactive Protein, Quantitative 3.2 mg/dL (0.00-0.90) H Digoxin Level 1.5 NG/ML (0.9-2.0) Objective HEAD AND NECK: Mild JVD. LUNGS: Bibasilar rales. CARDIOVASCULAR: Regular S1 and S2 with no murmur. ICD in the left subclavian. ABDOMEN: Soft. EXTREMITIES: 1+ pitting edema. Remi Howard MD Mar 17, 2018 16:40
--- NOTE | 2018-03-17 17:29 | Internal Med Progress Note ---
Subjective Date of Service: Mar 17, 2018 Physician Name Ash Li Attending Physician Brendan Wright MD Current Medications Medications (Trade) Dose Ordered Sig/[place] Route PRN Reason Start Time Stop Time Status Last Admin Dose Admin Acetaminophen (Tylenol) 650 mg Q4H PRN ORAL Fever (temp>100.5F) 03/12/18 15:45 04/11/18 15:44 Acetaminophen/ Hydrocodone Bitart ([place] 5/325) 1 tab Q6H PRN ORAL For Pain 03/16/18 11:30 03/23/18 11:29 03/16/18 20:53 Carvedilol (Coreg) 3.125 mg EVERY 12 HOURS ORAL 03/14/18 21:00 04/13/18 20:59 03/16/18 20:52 Clopidogrel Bisulfate (Plavix) 75 mg DAILY ORAL 03/13/18 09:00 04/12/18 08:59 03/17/18 09:15 Dextrose (Dextrose 50%) 25 ml Q30M PRN IV Hypoglycemia 03/14/18 12:00 04/13/18 11:59 Dextrose (Dextrose 50%) 50 ml Q30M PRN IV Hypoglycemia 03/14/18 12:00 04/13/18 11:59 Digoxin (Lanoxin) 0.125 mg DAILY ORAL 03/13/18 09:00 04/12/18 08:59 03/17/18 09:21 Gabapentin (Neurontin) 300 mg TID ORAL 03/12/18 20:00 04/11/18 19:59 03/17/18 14:31 Heparin Sodium (Porcine) (Heparin 5000 units/ml) 5,000 units EVERY 12 HOURS SUBQ 03/12/18 21:00 04/11/18 20:59 03/17/18 09:23 Insulin Aspart (NovoLOG) BEFORE MEALS AND HS SUBQ 03/14/18 12:16 04/13/18 12:15 03/17/18 16:33 Insulin Detemir (Levemir) 60 units DAILY SUBQ 03/17/18 09:00 04/16/18 08:59 03/17/18 10:15 Lisinopril (Zestril) 2.5 mg DAILY ORAL 03/18/18 09:00 04/14/18 08:59 Lorazepam (Ativan) 1 mg Q6H PRN ORAL For Anxiety 03/14/18 12:00 03/21/18 11:59 Ondansetron HCl (Zofran) 4 mg Q6H PRN IVP Nausea & Vomiting 03/12/18 15:45 04/11/18 15:44 Pantoprazole (Protonix) 40 mg DAILY ORAL 03/17/18 11:30 04/16/18 11:29 03/17/18 11:44 Polyethylene Glycol (Miralax) 17 gm DAILYPRN PRN ORAL Constipation 03/12/18 15:45 04/11/18 15:44 Pregabalin (Lyrica) 50 mg Q12HR ORAL 03/12/18 21:00 04/11/18 20:59 03/17/18 09:16 Spironolactone (Aldactone) 25 mg DAILY ORAL 03/13/18 09:00 04/12/18 08:59 03/17/18 09:16 Temazepam (Restoril) 15 mg HSPRN PRN ORAL Insomnia 03/12/18 21:00 03/19/18 20:59 Allergies: Coded Allergies: No Known Allergies (Unverified , 12/18/16) ROS Limited/Unobtainable: No Constitutional: Reports: no symptoms HEENT: Reports: no symptoms Cardiovascular: Reports: no symptoms Respiratory: Reports: shortness of breath Gastrointestinal/Abdominal: Reports: no symptoms Genitourinary: Reports: no symptoms 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: Reports: no symptoms Subjective 73 YO F admitted with leg swelling and shortness of breath. Now CHF exacerbation. Cover for Int [place]-Dr Wright Objective Last Vital Signs Date Time Temp Pulse Resp B/P (MAP) Pulse Ox O2 Delivery O2 Flow Rate FiO2 03/17/18 16:34 79 03/17/18 15:37 98.2 18 104/58 (73) 82 98.2 03/17/18 09:00 Nasal Cannula 2.0 03/17/18 08:57 21 Laboratory Tests Test 03/17/18 06:55 C-Reactive Protein, Quantitative 3.2 mg/dL (0.00-0.90) H Digoxin Level 1.5 NG/ML (0.9-2.0) Intake and Output 03/16/18 03/17/18 19:00 07:00 Intake Total 1600 ml Balance 1600 ml Intake Oral 1600 ml # Voids 6 3 # Bowel Movements 1 Objective PHYSICAL EXAMINATION: GENERAL: The patient is a well-developed and well-nourished female, in no apparent distress. HEENT: Eyes, pupils are equal and responsive to light and accommodation. Extraocular movements are intact. NECK: Supple. No lymphadenopathy. CHEST: Lungs are clear to auscultation bilaterally with crackles heard one-third of the way up bilaterally. CARDIOVASCULAR: Regular rhythm and rate. S1 and S2 are normal without murmurs, rubs, or gallops. ABDOMEN: Soft, nontender, and nondistended. Positive bowel sounds. No evidence of hepatosplenomegaly. Currently, no rebound or guarding noted. EXTREMITIES: 2+ pitting edema bilaterally. Otherwise without clubbing or cyanosis. RECTAL/GENITAL: Refused. NEUROLOGIC: Cranial nerves II through XII are grossly intact without focal deficits. Motor strength is 5/5 bilaterally. Deep tendon reflexes are 2+ plantar. Assessment/Plan Problem List: (1) HTN (hypertension) Assessment & Plan: Continue coreg, zestril and spirinolactone. (2) Cardiomyopathy Assessment & Plan: LVEF=25% (3) Dyspnea Assessment & Plan: Due to CHF. See cardiology note. (4) Edema (5) Acute CHF Assessment & Plan: Increase lasix-See cardiology note. (6) COPD (chronic obstructive pulmonary disease) (7) Diabetes mellitus (8) Cerebral vascular disease (9) Hemiparesis, right (10) EF 25% (11) AICD (automatic cardioverter/defibrillator) present (12) Left bundle branch block (LBBB) Assessment & Plan: S/P AICD Status: not improved Ash Li MD Mar 17, 2018 17:29
[2018-03-18] VITALS: BP 112/57
--- NOTE | 2018-03-18 00:09 | General Progress Note ---
Assessment/Plan Assessment/Plan encephalopathy due to metabolic d/o Dementia chronic zyprexa 2.5mg prn ativan 1mg q 6hr/prn Subjective Date patient seen: Mar 17, 2018 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: Reports: anxiety Allergies: Coded Allergies: No Known Allergies (Unverified , 12/18/16) Subjective the pt has episodes of anxiety Objective Last 24 Hour Vital Signs Date Time Temp Pulse Resp B/P (MAP) Pulse Ox O2 Delivery O2 Flow Rate FiO2 03/17/18 21:00 Nasal Cannula 2.0 03/17/18 20:32 79 140/41 03/17/18 20:00 88 03/17/18 19:55 98.2 16 140/41 (74) 92 98.2 03/17/18 19:54 95 Nasal Cannula 2.0 28 03/17/18 19:54 Nasal Cannula 2.0 28 03/17/18 19:53 79 20 Nasal Cannula 2.0 28 03/17/18 16:34 79 03/17/18 15:37 98.2 18 104/58 (73) 82 98.2 03/17/18 12:00 97.5 20 99/53 (68) 83 97.5 03/17/18 12:00 87 03/17/18 09:21 76 03/17/18 09:17 99/45 (63) 76 03/17/18 09:00 Nasal Cannula 2.0 03/17/18 09:00 99/45 03/17/18 09:00 76 99/45 03/17/18 08:57 Room Air 21 03/17/18 08:57 86 20 Room Air 28 03/17/18 08:57 96 Room Air 21 03/17/18 08:00 97.0 81 18 103/42 (62) 95 97.0 03/17/18 07:53 87 03/17/18 04:00 97.7 73 20 146/104 (118) 97 97.7 03/17/18 04:00 77 Intake and Output 03/17/18 03/18/18 19:00 07:00 Intake Total 360 ml Balance 360 ml Intake Oral 360 ml # Voids 4 Laboratory Tests 03/17/18 06:55: C-Reactive Protein, Quantitative 3.2H, Digoxin Level 1.5 Height (Feet): 5 Height (Inches): 1.00 Weight (Pounds): 162 Farhadi,Pantea MD Mar 18, 2018 00:09
[2018-03-18 04:00] VITALS: BP 117/83
[2018-03-18] MEDS: NovoLOG Insulin Flexpen SUBQ SCH ×4 (06:15→20:44)
[2018-03-18 08:00] VITALS: BP 122/62
[2018-03-18 08:14] LABS: BASOPHILS % (AUTO) 0.9 % (0.0-2.0); EOSINOPHILS % (AUTO) 3.7 % (0.0-3.0); HEMATOCRIT 36.8 % (37.0-47.0); HEMOGLOBIN 11.8 G/DL (12.0-16.0); LYMPHOCYTES % (AUTO) 16.7 % (20.0-45.0); MEAN CORPUSCULAR VOLUME 86 FL (80-99); MONOCYTES % (AUTO) 7.7 % (1.0-10.0); PLATELET COUNT 198 K/UL (150-450); RED BLOOD COUNT 4.29 M/UL (4.20-5.40); RED CELL DISTRIBUTION WIDTH 13.9 % (11.6-14.8); WHITE BLOOD COUNT 9.6 K/UL (4.8-10.8)
[2018-03-18 08:55] LABS: ALANINE AMINOTRANSFERASE 22 U/L (12-78); ALBUMIN 2.6 G/DL (3.4-5.0); ALBUMIN/GLOBULIN RATIO 0.6 (1.0-2.7); ALKALINE PHOSPHATASE 116 U/L (46-116); ANION GAP 8 mmol/L (5-15); BILIRUBIN,TOTAL 0.3 MG/DL (0.2-1.0); BLOOD UREA NITROGEN 43 mg/dL (7-18); CALCIUM 8.9 MG/DL (8.5-10.1); CARBON DIOXIDE 28 MMOL/L (21-32); CHLORIDE 105 MMOL/L (98-107); CHOLESTEROL 194 MG/DL (< 200); CREATINE KINASE 51 U/L (26-308); CREATININE 1.7 MG/DL (0.55-1.30); GAMMA GLUTAMYL TRANSPEPTIDASE 60 U/L (5-85); HDL CHOLESTEROL 34 MG/DL (40-60); PHOSPHORUS 2.9 MG/DL (2.5-4.9); POTASSIUM 4.1 MMOL/L (3.5-5.1); SODIUM 141 MMOL/L (136-145); TRIGLYCERIDES 489 MG/DL (30-150)
[2018-03-18 09:06] LABS: ASPARTATE AMINO TRANSFERASE 22 U/L (15-37)
[2018-03-18] MEDS: Spironolactone 25mg tab ORAL SCH (09:16)
[2018-03-18] MEDS: Lisinopril 2.5mg tab ORAL SCH (09:16)
[2018-03-18] MEDS: Lyrica 50mg cap ORAL SCH ×2 (09:16→20:41)
[2018-03-18] MEDS: Levemir Flexpen SUBQ SCH ×2 (09:18→17:41)
[2018-03-18] MEDS: Heparin 5000 units/ml inj SUBQ SCH ×2 (09:18→20:42)
[2018-03-18] MEDS: Digoxin 0.125mg tab ORAL SCH (09:19)
[2018-03-18 12:00] VITALS: BP 121/50
--- NOTE | 2018-03-18 13:05 | Nephrology Progress Note ---
Assessment/Plan Problem List: (1) Acute CHF (2) Cardiomyopathy (3) Diabetic nephropathy (4) Acute renal failure (5) AICD (automatic cardioverter/defibrillator) present Assessment Acute renal failure, multifactorial due to below in red: (1) Acute on chronic CHF with Diastolic dysfunction (2) COPD (chronic obstructive pulmonary disease) (3) AICD (automatic cardioverter/defibrillator) present (4) EF 25% (5) CAD (coronary artery disease) (6) Hemiparesis, right (7) Diabetes mellitus (8) Right hip pain Plan Hold Lasix adjust BP meds increase coreg dose Monitor renal parameters per orders Objective Objective Last 24 Hour Vital Signs Date Time Temp Pulse Resp B/P (MAP) Pulse Ox O2 Delivery O2 Flow Rate FiO2 03/18/18 12:00 98.1 94 20 121/50 (73) 94 98.1 03/18/18 11:50 81 03/18/18 09:19 85 03/18/18 09:16 122/62 03/18/18 09:15 85 122/62 03/18/18 09:00 Nasal Cannula 2.0 03/18/18 08:00 97.7 85 20 122/62 (82) 93 97.7 03/18/18 07:54 87 03/18/18 04:00 93 03/18/18 04:00 98.1 97 18 117/83 (94) 95 98.1 03/18/18 00:00 89 03/18/18 00:00 97.3 88 18 112/57 (75) 92 97.3 03/17/18 21:00 Nasal Cannula 2.0 03/17/18 20:32 79 140/41 03/17/18 20:00 88 03/17/18 19:55 98.2 16 140/41 (74) 92 98.2 03/17/18 19:54 95 Nasal Cannula 2.0 28 03/17/18 19:54 Nasal Cannula 2.0 28 03/17/18 19:53 79 20 Nasal Cannula 2.0 28 03/17/18 16:34 79 03/17/18 15:37 98.2 18 104/58 (73) 82 98.2 Intake and Output 03/17/18 03/18/18 19:00 07:00 Intake Total 360 ml 240 ml Balance 360 ml 240 ml Intake Oral 360 ml 240 ml # Voids 4 3 Laboratory Tests 03/18/18 06:40: White Blood Count 9.6, Red Blood Count 4.29, Hemoglobin 11.8L, Hematocrit 36.8L , Mean Corpuscular Volume 86, Mean Corpuscular Hemoglobin 27.4, Mean Corpuscular Hemoglobin Concent 31.9L, Red Cell Distribution Width 13.9, Platelet Count 198, Mean Platelet Volume 10.1, Neutrophils (%) (Auto) 71.0, Lymphocytes (%) (Auto) 16.7L, Monocytes (%) (Auto) 7.7, Eosinophils (%) (Auto) 3.7H, Basophils (%) (Auto) 0.9, Sodium Level 141, Potassium Level 4.1, Chloride Level 105, Carbon Dioxide Level 28, Anion Gap 8, Blood Urea Nitrogen 43H, Creatinine 1.7H, Estimat Glomerular Filtration Rate , Glucose Level 351H, Hemoglobin A1c 9.2H, Uric Acid 11.5H, Calcium Level 8.9, Phosphorus Level 2.9, Magnesium Level 2.0, Total Bilirubin 0.3, Gamma Glutamyl Transpeptidase 60, Aspartate Amino Transf (AST/SGOT) 22, Alanine Aminotransferase (ALT/SGPT) 22, Alkaline Phosphatase 116, Total Creatine Kinase 51, Troponin I 0.045, Pro-B- Type Natriuretic Peptide 594H, Total Protein 7.3, Albumin 2.6L, Globulin 4.7, Albumin/Globulin Ratio 0.6L, Triglycerides Level 489H, Cholesterol Level 194, LDL Cholesterol 80, HDL Cholesterol 34L, Cholesterol/HDL Ratio 5.7H, Thyroid Stimulating Hormone (TSH) 1.293 Height (Feet): 5 Height (Inches): 1.00 Weight (Pounds): 162 General Appearance: no apparent distress Cardiovascular: normal rate Respiratory/Chest: decreased breath sounds Abdomen: soft Bill Mcdonald MD Mar 18, 2018 13:05
--- NOTE | 2018-03-18 14:57 | Internal Med Progress Note ---
Subjective Date of Service: Mar 18, 2018 Physician Name Ash Li Attending Physician Brendan Wright MD Current Medications Medications (Trade) Dose Ordered Sig/[place] Route PRN Reason Start Time Stop Time Status Last Admin Dose Admin Acetaminophen (Tylenol) 650 mg Q4H PRN ORAL Fever (temp>100.5F) 03/12/18 15:45 04/11/18 15:44 Acetaminophen/ Hydrocodone Bitart ([place] 5/325) 1 tab Q6H PRN ORAL For Pain 03/16/18 11:30 03/23/18 11:29 03/16/18 20:53 Allopurinol (Allopurinol) 300 mg DAILY ORAL 03/19/18 09:00 04/18/18 08:59 Carvedilol (Coreg) 6.25 mg EVERY 12 HOURS ORAL 03/18/18 21:00 04/13/18 20:59 Clopidogrel Bisulfate (Plavix) 75 mg DAILY ORAL 03/13/18 09:00 04/12/18 08:59 03/18/18 09:10 Dextrose (Dextrose 50%) 25 ml Q30M PRN IV Hypoglycemia 03/14/18 12:00 04/13/18 11:59 Dextrose (Dextrose 50%) 50 ml Q30M PRN IV Hypoglycemia 03/14/18 12:00 04/13/18 11:59 Digoxin (Lanoxin) 0.125 mg DAILY ORAL 03/13/18 09:00 04/12/18 08:59 03/18/18 09:19 Gabapentin (Neurontin) 300 mg TID ORAL 03/12/18 20:00 04/11/18 19:59 03/18/18 12:45 Heparin Sodium (Porcine) (Heparin 5000 units/ml) 5,000 units EVERY 12 HOURS SUBQ 03/12/18 21:00 04/11/18 20:59 03/18/18 09:18 Insulin Aspart (NovoLOG) BEFORE MEALS AND HS SUBQ 03/14/18 12:16 04/13/18 12:15 03/18/18 11:30 Insulin Detemir (Levemir) 40 units BID SUBQ 03/18/18 18:00 04/16/18 08:59 Lisinopril (Zestril) 2.5 mg DAILY ORAL 03/18/18 09:00 04/14/18 08:59 03/18/18 09:16 Lorazepam (Ativan) 1 mg Q6H PRN ORAL For Anxiety 03/14/18 12:00 03/21/18 11:59 Ondansetron HCl (Zofran) 4 mg Q6H PRN IVP Nausea & Vomiting 03/12/18 15:45 04/11/18 15:44 Pantoprazole (Protonix) 40 mg DAILY ORAL 03/17/18 11:30 04/16/18 11:29 03/18/18 09:16 Polyethylene Glycol (Miralax) 17 gm DAILYPRN PRN ORAL Constipation 03/12/18 15:45 04/11/18 15:44 Pregabalin (Lyrica) 50 mg Q12HR ORAL 03/12/18 21:00 04/11/18 20:59 03/18/18 09:16 Spironolactone (Aldactone) 25 mg DAILY ORAL 03/13/18 09:00 04/12/18 08:59 03/18/18 09:16 Temazepam (Restoril) 15 mg HSPRN PRN ORAL Insomnia 03/12/18 21:00 03/19/18 20:59 Allergies: Coded Allergies: No Known Allergies (Unverified , 12/18/16) ROS Limited/Unobtainable: No Constitutional: Reports: no symptoms HEENT: Reports: no symptoms Cardiovascular: Reports: no symptoms Respiratory: Reports: shortness of breath Gastrointestinal/Abdominal: Reports: no symptoms Genitourinary: Reports: no symptoms 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: Reports: no symptoms Subjective 73 YO F admitted with leg swelling and shortness of breath. Now CHF exacerbation. Cover for Int [place]-Dr Wright. Discharge held due to elevated glucose Objective Last Vital Signs Date Time Temp Pulse Resp B/P (MAP) Pulse Ox O2 Delivery O2 Flow Rate FiO2 03/18/18 12:00 98.1 94 20 121/50 (73) 94 98.1 03/18/18 09:00 Nasal Cannula 2.0 03/17/18 19:54 28 Laboratory Tests Test 03/18/18 06:40 White Blood Count 9.6 K/UL (4.8-10.8) Red Blood Count 4.29 M/UL (4.20-5.40) Hemoglobin 11.8 G/DL (12.0-16.0) L Hematocrit 36.8 % (37.0-47.0) L Mean Corpuscular Volume 86 FL (80-99) Mean Corpuscular Hemoglobin 27.4 PG (27.0-31.0) Mean Corpuscular Hemoglobin Concent 31.9 G/DL (32.0-36.0) L Red Cell Distribution Width 13.9 % (11.6-14.8) Platelet Count 198 K/UL (150-450) Mean Platelet Volume 10.1 FL (6.5-10.1) Neutrophils (%) (Auto) 71.0 % (45.0-75.0) Lymphocytes (%) (Auto) 16.7 % (20.0-45.0) L Monocytes (%) (Auto) 7.7 % (1.0-10.0) Eosinophils (%) (Auto) 3.7 % (0.0-3.0) H Basophils (%) (Auto) 0.9 % (0.0-2.0) Sodium Level 141 MMOL/L (136-145) Potassium Level 4.1 MMOL/L (3.5-5.1) Chloride Level 105 MMOL/L (98-107) Carbon Dioxide Level 28 MMOL/L (21-32) Anion Gap 8 mmol/L (5-15) Blood Urea Nitrogen 43 mg/dL (7-18) H Creatinine 1.7 MG/DL (0.55-1.30) H Estimat Glomerular Filtration Rate mL/min (>60) Glucose Level 351 MG/DL (74-106) H Hemoglobin A1c 9.2 % (4.3-6.0) H Uric Acid 11.5 MG/DL (2.6-7.2) H Calcium Level 8.9 MG/DL (8.5-10.1) Phosphorus Level 2.9 MG/DL (2.5-4.9) Magnesium Level 2.0 MG/DL (1.8-2.4) Total Bilirubin 0.3 MG/DL (0.2-1.0) Gamma Glutamyl Transpeptidase 60 U/L (5-85) Aspartate Amino Transf (AST/SGOT) 22 U/L (15-37) Alanine Aminotransferase (ALT/SGPT) 22 U/L (12-78) Alkaline Phosphatase 116 U/L (46-116) Total Creatine Kinase 51 U/L (26-308) Troponin I 0.045 ng/mL (0.000-0.056) Pro-B-Type Natriuretic Peptide 594 pg/mL (0-125) H Total Protein 7.3 G/DL (6.4-8.2) Albumin 2.6 G/DL (3.4-5.0) L Globulin 4.7 g/dL Albumin/Globulin Ratio 0.6 (1.0-2.7) L Triglycerides Level 489 MG/DL (30-150) H Cholesterol Level 194 MG/DL (< 200) LDL Cholesterol 80 mg/dL (<100) HDL Cholesterol 34 MG/DL (40-60) L Cholesterol/HDL Ratio 5.7 (3.3-4.4) H Thyroid Stimulating Hormone (TSH) 1.293 uiU/mL (0.358-3.740) Microbiology Date/Time Source Procedure Growth Status 03/16/18 14:00 Urine,Clean Catch Urine Culture - Preliminary Gram Negative Bacillus 1 Resulted Intake and Output 03/17/18 03/18/18 19:00 07:00 Intake Total 360 ml 240 ml Balance 360 ml 240 ml Intake Oral 360 ml 240 ml # Voids 4 3 Objective PHYSICAL EXAMINATION: GENERAL: The patient is a well-developed and well-nourished female, in no apparent distress. HEENT: Eyes, pupils are equal and responsive to light and accommodation. Extraocular movements are intact. NECK: Supple. No lymphadenopathy. CHEST: Lungs are clear to auscultation bilaterally with crackles heard one-third of the way up bilaterally. CARDIOVASCULAR: Regular rhythm and rate. S1 and S2 are normal without murmurs, rubs, or gallops. ABDOMEN: Soft, nontender, and nondistended. Positive bowel sounds. No evidence of hepatosplenomegaly. Currently, no rebound or guarding noted. EXTREMITIES: 2+ pitting edema bilaterally. Otherwise without clubbing or cyanosis. RECTAL/GENITAL: Refused. NEUROLOGIC: Cranial nerves II through XII are grossly intact without focal deficits. Motor strength is 5/5 bilaterally. Deep tendon reflexes are 2+ plantar. Assessment/Plan Problem List: (1) HTN (hypertension) Assessment & Plan: Continue coreg, zestril and spirinolactone. (2) Cardiomyopathy Assessment & Plan: LVEF=25% (3) Dyspnea Assessment & Plan: Due to CHF. See cardiology note. (4) Edema (5) Acute CHF Assessment & Plan: Increase lasix-See cardiology note. (6) COPD (chronic obstructive pulmonary disease) (7) Diabetes mellitus Assessment & Plan: Uncontrolled. Increase levemir to 40 units BID. Novolog resistant sliding scale (8) Cerebral vascular disease (9) Hemiparesis, right (10) EF 25% (11) AICD (automatic cardioverter/defibrillator) present (12) Left bundle branch block (LBBB) Assessment & Plan: S/P AICD Status: not improved Ash Li MD Mar 18, 2018 14:57
[2018-03-18 16:00] VITALS: BP 125/51
[2018-03-18 20:00] VITALS: BP 120/59
[2018-03-18] MEDS: Carvedilol 6.25mg Tab ORAL SCH (20:41)
[2018-03-19] VITALS: BP 114/57
[2018-03-19 04:00] VITALS: BP 122/52
[2018-03-19] MEDS: NovoLOG Insulin Flexpen SUBQ SCH ×3 (06:18→17:00)
[2018-03-19 06:38] LABS: BASOPHILS % (AUTO) 1.3 % (0.0-2.0); EOSINOPHILS % (AUTO) 3.2 % (0.0-3.0); HEMATOCRIT 37.1 % (37.0-47.0); HEMOGLOBIN 11.9 G/DL (12.0-16.0); LYMPHOCYTES % (AUTO) 18.6 % (20.0-45.0); MEAN CORPUSCULAR VOLUME 86 FL (80-99); MONOCYTES % (AUTO) 9.6 % (1.0-10.0); NEUTROPHILS % (AUTO) 67.3 % (45.0-75.0); PLATELET COUNT 184 K/UL (150-450); RED BLOOD COUNT 4.29 M/UL (4.20-5.40); RED CELL DISTRIBUTION WIDTH 14.3 % (11.6-14.8); WHITE BLOOD COUNT 10.6 K/UL (4.8-10.8)
[2018-03-19 06:59] LABS: ANION GAP 7 mmol/L (5-15); BLOOD UREA NITROGEN 32 mg/dL (7-18); CALCIUM 9.1 MG/DL (8.5-10.1); CARBON DIOXIDE 29 MMOL/L (21-32); CHLORIDE 107 MMOL/L (98-107); CREATININE 1.4 MG/DL (0.55-1.30); POTASSIUM 4.5 MMOL/L (3.5-5.1); SODIUM 143 MMOL/L (136-145)
[2018-03-19 08:00] VITALS: BP 137/97
[2018-03-19] MEDS: Lyrica 50mg cap ORAL SCH (09:06)
[2018-03-19] MEDS: Carvedilol 6.25mg Tab ORAL SCH (09:07)
[2018-03-19] MEDS: Spironolactone 25mg tab ORAL SCH (09:07)
[2018-03-19] MEDS: Lisinopril 2.5mg tab ORAL SCH (09:07)
[2018-03-19] MEDS: Digoxin 0.125mg tab ORAL SCH (09:07)
[2018-03-19] MEDS: Heparin 5000 units/ml inj SUBQ SCH (09:09)
[2018-03-19] MEDS: Levemir Flexpen SUBQ SCH (09:10)
[2018-03-19 12:05] VITALS: BP 128/60
[2018-03-19] MEDS ORDERED: Furosemide 40mg tab ORAL SCH (13:45)
--- NOTE | 2018-03-19 13:53 | Nephrology Progress Note ---
Assessment/Plan Problem List: (1) Acute CHF (2) Cardiomyopathy (3) Diabetic nephropathy (4) Acute renal failure (5) AICD (automatic cardioverter/defibrillator) present Assessment Acute renal failure, multifactorial due to below in red: (1) Acute on chronic CHF with Diastolic dysfunction (2) COPD (chronic obstructive pulmonary disease) (3) AICD (automatic cardioverter/defibrillator) present (4) EF 25% (5) CAD (coronary artery disease) (6) Hemiparesis, right (7) Diabetes mellitus (8) Right hip pain Plan resume Lasix adjust BP meds increase coreg dose Monitor renal parameters per orders Subjective ROS Limited/Unobtainable: No Constitutional: Reports: malaise, weakness Objective Objective Last 24 Hour Vital Signs Date Time Temp Pulse Resp B/P (MAP) Pulse Ox O2 Delivery O2 Flow Rate FiO2 03/19/18 13:30 96 03/19/18 12:28 78 03/19/18 12:05 98.4 73 19 128/60 (82) 98 98.4 03/19/18 09:07 79 137/97 03/19/18 09:07 137/97 03/19/18 09:07 79 03/19/18 09:00 Nasal Cannula 2.0 03/19/18 08:00 78 03/19/18 08:00 98.6 79 19 137/97 (110) 94 98.6 03/19/18 04:00 82 03/19/18 04:00 98.2 84 18 122/52 (75) 100 98.2 03/19/18 00:00 88 03/19/18 00:00 98.2 90 20 114/57 (76) 97 98.2 03/18/18 23:12 Nasal Cannula 2.0 28 03/18/18 23:11 96 Nasal Cannula 2.0 28 03/18/18 23:10 92 20 Nasal Cannula 2.0 28 03/18/18 21:00 Nasal Cannula 2.0 03/18/18 20:41 102 120/59 03/18/18 20:00 99.5 99 18 120/59 (79) 92 99.5 03/18/18 20:00 99 03/18/18 16:00 97.1 90 20 125/51 (75) 98 97.1 03/18/18 15:16 88 Intake and Output 03/18/18 03/19/18 19:00 07:00 Intake Total 240 ml 240 ml Balance 240 ml 240 ml Intake Oral 240 ml 240 ml # Voids 3 2 Laboratory Tests 03/19/18 04:50: White Blood Count 10.6, Red Blood Count 4.29, Hemoglobin 11.9L, Hematocrit 37.1 , Mean Corpuscular Volume 86, Mean Corpuscular Hemoglobin 27.6, Mean Corpuscular Hemoglobin Concent 31.9L, Red Cell Distribution Width 14.3, Platelet Count 184, Mean Platelet Volume 8.7, Neutrophils (%) (Auto) 67.3, Lymphocytes (%) (Auto) 18.6L, Monocytes (%) (Auto) 9.6, Eosinophils (%) (Auto) 3.2H, Basophils (%) (Auto) 1.3, Sodium Level 143, Potassium Level 4.5, Chloride Level 107, Carbon Dioxide Level 29, Anion Gap 7, Blood Urea Nitrogen 32H, Creatinine 1.4H, Estimat Glomerular Filtration Rate , Glucose Level 297H, Calcium Level 9.1 Height (Feet): 5 Height (Inches): 1.00 Weight (Pounds): 162 General Appearance: no apparent distress, lethargic Cardiovascular: normal rate Respiratory/Chest: decreased breath sounds Abdomen: soft Objective no change Bill Mcdonald MD Mar 19, 2018 13:53
--- NOTE | 2018-03-19 14:24 | Cardiac Electrophysiology PN ---
Assessment/Plan Assessment/Plan 1. Exacerbation of congestive heart failure in a patient with severe cardiomyopathy. Continue Aldactone 25 mg daily,digoxin 0.125 mg daily, Coreg, lisinopril and Lasix 2. Status post Biotronik biventricular defibrillator implantation. Re- interrogated and showed Nl Fx Mostly V pacing 3. Renal failure. Creatinine was 1.3 on admission 4. Troponin leak. Nonspecific. Second troponin is negative. 5. Metabolic encephalopathy and anxiety, improving under the management of Dr. Douglas. 6. History of cerebrovascular accident with right-sided paresis. 7. History of cervical cancer in 2016 status post surgery. 8. Chronic obstructive pulmonary disease. [place] RN OK to DC home Subjective Subjective In NAD. No events Objective Last 24 Hour Vital Signs Date Time Temp Pulse Resp B/P (MAP) Pulse Ox O2 Delivery O2 Flow Rate FiO2 03/19/18 13:30 96 03/19/18 12:28 78 03/19/18 12:05 98.4 73 19 128/60 (82) 98 98.4 03/19/18 09:07 79 137/97 03/19/18 09:07 137/97 03/19/18 09:07 79 03/19/18 09:00 Nasal Cannula 2.0 03/19/18 08:00 78 03/19/18 08:00 98.6 79 19 137/97 (110) 94 98.6 03/19/18 04:00 82 03/19/18 04:00 98.2 84 18 122/52 (75) 100 98.2 03/19/18 00:00 88 03/19/18 00:00 98.2 90 20 114/57 (76) 97 98.2 03/18/18 23:12 Nasal Cannula 2.0 28 03/18/18 23:11 96 Nasal Cannula 2.0 28 03/18/18 23:10 92 20 Nasal Cannula 2.0 28 03/18/18 21:00 Nasal Cannula 2.0 03/18/18 20:41 102 120/59 03/18/18 20:00 99.5 99 18 120/59 (79) 92 99.5 03/18/18 20:00 99 03/18/18 16:00 97.1 90 20 125/51 (75) 98 97.1 03/18/18 15:16 88 Intake and Output 03/18/18 03/19/18 19:00 07:00 Intake Total 240 ml 240 ml Balance 240 ml 240 ml Intake Oral 240 ml 240 ml # Voids 3 2 Laboratory Tests Test 03/19/18 04:50 White Blood Count 10.6 K/UL (4.8-10.8) Red Blood Count 4.29 M/UL (4.20-5.40) Hemoglobin 11.9 G/DL (12.0-16.0) L Hematocrit 37.1 % (37.0-47.0) Mean Corpuscular Volume 86 FL (80-99) Mean Corpuscular Hemoglobin 27.6 PG (27.0-31.0) Mean Corpuscular Hemoglobin Concent 31.9 G/DL (32.0-36.0) L Red Cell Distribution Width 14.3 % (11.6-14.8) Platelet Count 184 K/UL (150-450) Mean Platelet Volume 8.7 FL (6.5-10.1) Neutrophils (%) (Auto) 67.3 % (45.0-75.0) Lymphocytes (%) (Auto) 18.6 % (20.0-45.0) L Monocytes (%) (Auto) 9.6 % (1.0-10.0) Eosinophils (%) (Auto) 3.2 % (0.0-3.0) H Basophils (%) (Auto) 1.3 % (0.0-2.0) Sodium Level 143 MMOL/L (136-145) Potassium Level 4.5 MMOL/L (3.5-5.1) Chloride Level 107 MMOL/L (98-107) Carbon Dioxide Level 29 MMOL/L (21-32) Anion Gap 7 mmol/L (5-15) Blood Urea Nitrogen 32 mg/dL (7-18) H Creatinine 1.4 MG/DL (0.55-1.30) H Estimat Glomerular Filtration Rate mL/min (>60) Glucose Level 297 MG/DL (74-106) H Calcium Level 9.1 MG/DL (8.5-10.1) Objective HEAD AND NECK: Mild JVD. LUNGS: Bibasilar rales. CARDIOVASCULAR: Regular S1 and S2 with no murmur. ICD in the left subclavian. ABDOMEN: Soft. EXTREMITIES: 1+ pitting edema. Remi Howard MD Mar 19, 2018 14:24
[2018-03-19 16:21] VITALS: BP 113/64
[2018-03-19] MEDS ORDERED: Levemir Flexpen SUBQ SCH (18:00)
--- NOTE | 2018-03-19 23:47 | General Progress Note ---
Assessment/Plan Assessment/Plan encephalopathy due to metabolic d/o Dementia chronic zyprexa 2.5mg prn ativan 1mg q 6hr/prn Subjective Date patient seen: Mar 19, 2018 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: Reports: anxiety, depressed, emotional problems Allergies: Coded Allergies: No Known Allergies (Unverified , 12/18/16) Subjective the pt has episodes of anxiety Objective Last 24 Hour Vital Signs Date Time Temp Pulse Resp B/P (MAP) Pulse Ox O2 Delivery O2 Flow Rate FiO2 03/19/18 16:21 96.8 77 18 113/64 (80) 96.8 03/19/18 16:07 74 03/19/18 13:30 96 03/19/18 12:28 78 03/19/18 12:05 98.4 73 19 128/60 (82) 98 98.4 03/19/18 09:07 79 137/97 03/19/18 09:07 137/97 03/19/18 09:07 79 03/19/18 09:00 Nasal Cannula 2.0 03/19/18 08:00 78 03/19/18 08:00 98.6 79 19 137/97 (110) 94 98.6 03/19/18 04:00 82 03/19/18 04:00 98.2 84 18 122/52 (75) 100 98.2 03/19/18 00:00 88 03/19/18 00:00 98.2 90 20 114/57 (76) 97 98.2 Intake and Output 03/18/18 03/19/18 19:00 07:00 Intake Total 240 ml 240 ml Balance 240 ml 240 ml Intake Oral 240 ml 240 ml # Voids 3 2 Laboratory Tests 03/19/18 04:50: White Blood Count 10.6, Red Blood Count 4.29, Hemoglobin 11.9L, Hematocrit 37.1 , Mean Corpuscular Volume 86, Mean Corpuscular Hemoglobin 27.6, Mean Corpuscular Hemoglobin Concent 31.9L, Red Cell Distribution Width 14.3, Platelet Count 184, Mean Platelet Volume 8.7, Neutrophils (%) (Auto) 67.3, Lymphocytes (%) (Auto) 18.6L, Monocytes (%) (Auto) 9.6, Eosinophils (%) (Auto) 3.2H, Basophils (%) (Auto) 1.3, Sodium Level 143, Potassium Level 4.5, Chloride Level 107, Carbon Dioxide Level 29, Anion Gap 7, Blood Urea Nitrogen 32H, Creatinine 1.4H, Estimat Glomerular Filtration Rate , Glucose Level 297H, Calcium Level 9.1 Height (Feet): 5 Height (Inches): 1.00 Weight (Pounds): 162 General Appearance: no apparent distress, alert Teresa Douglas MD Mar 19, 2018 23:47
--- NOTE | 2018-03-19 23:49 | Psych Consult Progress Note ---
Psych Consult Progress Note Consult 03/18/18 the pt felt more tired and sleepy today Vital Signs Last 24 Hour Vital Signs Date Time Temp Pulse Resp B/P (MAP) Pulse Ox O2 Delivery O2 Flow Rate FiO2 03/19/18 16:21 96.8 77 18 113/64 (80) 96.8 03/19/18 16:07 74 03/19/18 13:30 96 03/19/18 12:28 78 03/19/18 12:05 98.4 73 19 128/60 (82) 98 98.4 03/19/18 09:07 79 137/97 03/19/18 09:07 137/97 03/19/18 09:07 79 03/19/18 09:00 Nasal Cannula 2.0 03/19/18 08:00 78 03/19/18 08:00 98.6 79 19 137/97 (110) 94 98.6 03/19/18 04:00 82 03/19/18 04:00 98.2 84 18 122/52 (75) 100 98.2 03/19/18 00:00 88 03/19/18 00:00 98.2 90 20 114/57 (76) 97 98.2 Labs Laboratory Tests Test 03/19/18 04:50 White Blood Count 10.6 K/UL (4.8-10.8) Red Blood Count 4.29 M/UL (4.20-5.40) Hemoglobin 11.9 G/DL (12.0-16.0) L Hematocrit 37.1 % (37.0-47.0) Mean Corpuscular Volume 86 FL (80-99) Mean Corpuscular Hemoglobin 27.6 PG (27.0-31.0) Mean Corpuscular Hemoglobin Concent 31.9 G/DL (32.0-36.0) L Red Cell Distribution Width 14.3 % (11.6-14.8) Platelet Count 184 K/UL (150-450) Mean Platelet Volume 8.7 FL (6.5-10.1) Neutrophils (%) (Auto) 67.3 % (45.0-75.0) Lymphocytes (%) (Auto) 18.6 % (20.0-45.0) L Monocytes (%) (Auto) 9.6 % (1.0-10.0) Eosinophils (%) (Auto) 3.2 % (0.0-3.0) H Basophils (%) (Auto) 1.3 % (0.0-2.0) Sodium Level 143 MMOL/L (136-145) Potassium Level 4.5 MMOL/L (3.5-5.1) Chloride Level 107 MMOL/L (98-107) Carbon Dioxide Level 29 MMOL/L (21-32) Anion Gap 7 mmol/L (5-15) Blood Urea Nitrogen 32 mg/dL (7-18) H Creatinine 1.4 MG/DL (0.55-1.30) H Estimat Glomerular Filtration Rate mL/min (>60) Glucose Level 297 MG/DL (74-106) H Calcium Level 9.1 MG/DL (8.5-10.1) Problems: (1) Diabetic neuropathy Status: Acute (2) Diabetes mellitus Status: Acute Assessment & Plan: Anxiety d/o -cont Teresa Dodson MD Mar 19, 2018 23:49
[2018-03-20] MEDS ORDERED: Furosemide 40mg tab ORAL SCH (09:00)
--- NOTE | 2018-03-22 08:26 | Discharge Summary ---
Discharge Summary Discharge Summary _ DATE OF ADMISSION: 03/12/2018 DATE OF DISCHARGE: 03/19/2018 REASON FOR ADMISSION: 73 years old female with past medical history of hypertension, diabetes mellitus , COPD, CVA with right hemiparesis, congestive heart failure with severe cardiomyopathy, arthritis, defibrillator, chronic kidney disease, presented to emergency department with bilateral lower extremity swelling and discomfort. Patient also reported shortness of breath. She noted increased difficulty breathing while lying flat. Upon evaluation vital signs were stable; pulse oximetry was 91% on room air. Laboratory workup revealed mild leukocytosis WBC 12.5. Stable hemoglobin and hematocrit. BUN 18, creatinine 1.3. Troponin 0.071. Pro BNP 1677. EKG revealed paced rhythm with left bundle branch block. Chest x-ray revealed evidence of left AICD , no acute findings. Patient admitted with diagnoses of CHF exacerbation, elevated troponin ,renal insufficiency, status post AICD, severe cardiomyopathy, history of CVA with right hemiparesis, diabetes mellitus. CONSULTANTS: police chief deputy Dr. Howard pulmonary Dr. Nolen low altitude air defense gunner Dr. Mcdonald psychiatrist [facility] COURSE: Patient admitted to telemetry floor. [facility] closely followed. Next two troponin negative. Per police chief deputy , patient had troponin leak, likely due to acute CHF exacerbation. Echocardiogram revealed ejection fraction of 35-40% with global left ventricular hypokinesis. No left ventricular hypertrophy. Moderate mitral regurgitation. Patient started on intensive diuresis with intravenous Lasix every 8 hours. Volumes and cardiorenal parameters were closely monitored. Anti-failure medication regimen was continued, including Aldactone, digoxin, Coreg and lisinopril. Pro BNP was trended , and prior to discharge from initial 1677 down to 594. Blood pressure was managed with current regimen and remained stable. Lipid panel revealed elevated triglycerides and stable LDL and total cholesterol. Patient was counseled on low-fat low-cholesterol diabetic diet. Repeat lipid panel in 3 months. Defibrillator was recently interrogated at police chief deputy office and showed normal functioning. Defibrillator was re- interrogated and showed as well normal functioning, mostly V pacing. Trolley Car Operator closely followed. Patient had chronic renal insufficiency and likely diabetic nephropathy, as evidenced by proteinuria. Patient developed acute renal failure with rise in creatinine to 1.8 from initial 1.3, likely due to intensive diuresis. Renal parameters and electrolytes were closely monitored. Electrolytes corrected as needed. As patient clinically improved, Lasix was changed to maintenance dose. Prior to discharge, creatinine down to 1.4. Supplemental oxygen provided as needed to keep pulse oximetry above 92%. Pulmonary toilet provided as needed. Venous duplex bilateral lower extremity was negative for evidence of acute DVT. Cafeteria Table Attendant closely followed. Follow-up chest x-ray was stable. Blood sugar was managed with a sliding scale insulin and Levemir. Hemoglobin A1c 9.2 , not at goal. Patient will need optimization of anti-glycemic regimen as outpatient. Psychiatrist seen and evaluated patient, diagnosed patient with anxiety disorder. Anxiolytic provided as needed. Reality orientation and supportive therapy provided. Pain management was addressed as needed. Bowel regimen instituted. Patient was working with physical and occupational therapists. Patient clinically improved and was stable for discharge home. FINAL DIAGNOSES: Acute on chronic congestive heart failure exacerbation Troponin leak Severe cardiomyopathy status post Biotronik biventricular defibrillator implantation Hypertension Acute renal failure on chronic renal insufficiency Diabetic nephropathy COPD History of CVA with right hemiparesis Diabetes mellitus type 2 Metabolic encephalopathy Chronic dementia Anxiety disorder History of cervical cancer in 2016, status post surgery DISCHARGE MEDICATIONS: See Medication Reconciliation list. DISCHARGE INSTRUCTIONS: Patient was discharged home . Follow up with primary care provider in one week. I have been assigned to dictate discharge summary for this account. I was not involved in the patient's management. Sari Carmona NP Mar 22, 2018 08:26
== END 2018-03-19 17:16 | disposition home health service (06) | DRG 291 ==
LOC: EMR 14:06 → 2E 14:35 → EDBEDREQ 16:46
DX: I11.0 Hypertensive heart disease with heart failure (principal); G93.41 Metabolic encephalopathy; I69.351 Hemiplegia and hemiparesis following cerebral infarction affecting right dominant side; N17.9 Acute kidney failure, unspecified; I50.33 Acute on chronic diastolic (congestive) heart failure; J44.9 Chronic obstructive pulmonary disease, unspecified; I42.0 Dilated cardiomyopathy; E11.9 Type 2 diabetes mellitus without complications; D50.9 Iron deficiency anemia, unspecified; I44.7 Left bundle-branch block, unspecified; Z95.810 Presence of automatic (implantable) cardiac defibrillator; Z85.42 Personal history of malignant neoplasm of other parts of uterus; Z90.710 Acquired absence of both cervix and uterus; Z79.02 Long term (current) use of antithrombotics/antiplatelets; Z79.4 Long term (current) use of insulin; I25.2 Old myocardial infarction; M25.551 Pain in right hip; E11.40 Type 2 diabetes mellitus with diabetic neuropathy, unspecified; F41.9 Anxiety disorder, unspecified; F03.90 Unspecified dementia, unspecified severity, without behavioral disturbance, psychotic disturbance, mood disturbance, and anxiety; I34.0 Nonrheumatic mitral (valve) insufficiency
CPT/HCPCS: 36415; 71045; 80048; 80053; 80061; 80162; 81001; 82550; 82962; 82977; 83036; 83690; 83735; 83880; 84100; 84133; 84300; 84443; 84484; 84550; 85025; 85651; 86140; 86850; 86900; 86901; 87081; 87086; 87181; 89050; 93005; 93306; 93970; 94664; 94760; 96374; 99285; J1815; S5561